=== PATIENT | female | born 1985 | race Caucasian/White ===

== ENCOUNTER 2016-06-10 03:47 | Inpatient (IN) | payer MEDICAID, OTHER ==
[2016-06-10] VITALS (9 sets, daily range): BP systolic 93–120; BP diastolic 54–71; PULSE 103–131; RESP 16–22; TEMP 98.5–99.7; O2SAT 95–97
[~2016-06-10] VITALS: Ht 177.8 cm; Wt 77.0 kg
--- NOTE | 2016-06-10 04:23 | PD ---
HPI Chief Complaint: GI Complaint Time Seen by Provider: 04:08 Travel History International Travel<30 days: No Contact w/Intl Traveler<30days: No Traveled to known affect area: No History of Present Illness HPI 31-year-old female complains of itching rash, productive cough, nausea vomiting and shortness of breath. Patient started having itching rash for the past 2 weeks. Patient states that the rash on the chest, back, abdomen extremity. Patient has been using Benadryl and calamine lotion without much relief of the itching. Patient started having productive cough with nausea vomiting for the past 3 days. Patient complains of frequent reflux symptoms. Patient denies any back pain, patient denies any fever chills. Patient denies abdominal pain. Patient denies any dysuria or frequency. Patient denies any vaginal discharge or bleeding. Patient states that she has history of alcohol abuse. Patient states that she drinks daily. Last drink was today. Patient states that she has a shake if she stops drinking. PFSH Past Medical History Anxiety: Yes Diminished Hearing: No ?: Not LMP: 04/24/16 Social History Alcohol Use: Yes Tobacco Use: No (quit a while ago) Substance Use: No Allergies-Medications (Allergen,Severity, Reaction): Coded Allergies: No Known Allergies (Unverified , 06/10/16) Reported Meds & Prescriptions Reported Meds & Active Scripts Active No Active Prescriptions or Reported Medications Review of Systems General / Constitutional: No: Fever Eyes: No: Visual changes HENT: No: Headaches Cardiovascular: No: Chest Pain or Discomfort Respiratory: Positive: Cough, No: Shortness of Breath Gastrointestinal: Positive: Nausea, Vomiting, No: Abdominal Pain Genitourinary: No: Dysuria Musculoskeletal: No: Pain Skin: Positive Rash (time of the morning for that [id number]), Positive Itching Neurologic: No: Weakness Psychiatric: No: Depression Endocrine: No: Polydipsia Hematologic/Lymphatic: No: Easy Bruising Physical Exam Narrative GENERAL: Well-nourished, well-developed patient. SKIN: Focused skin assessment warm/dry. Patient has fine papular rash on the chest, abdomen, extremity. HEAD: Normocephalic. EYES: No scleral icterus. No injection or drainage. NECK: Supple, trachea midline. No JVD or lymphadenopathy. CARDIOVASCULAR: Regular rate and rhythm without murmurs, gallops, or rubs. RESPIRATORY: Breath sounds equal bilaterally. No accessory muscle use. GASTROINTESTINAL: Abdomen soft, non-tender, nondistended. MUSCULOSKELETAL: No cyanosis, or edema. BACK: Nontender without obvious deformity. No CVA tenderness. Neurologic exam normal. Data Data Last Documented VS Vital Signs Date Time Temp Pulse Resp B/P Pulse Ox O2 Delivery O2 Flow Rate FiO2 06/10/16 04:54 18 97 Room Air 06/10/16 03:54 99.7 131 113/71 Orders Complete Blood Count With Diff (06/10/16 04:13) Comprehensive Metabolic Panel (06/10/16 04:13) Prothrombin Time / Inr (Pt) (06/10/16 04:13) Act Partial Throm Time (Ptt) (06/10/16 04:13) Lipase (06/10/16 04:13) Urinalysis - C+S If Indicated (06/10/16 04:13) Influenzae A/B Antigen (06/10/16 04:13) Chest, Single Ap (06/10/16 04:13) Iv Access Insert/Monitor (06/10/16 04:13) Ecg Monitoring (06/10/16 04:13) Oximetry (06/10/16 04:13) Alcohol (Ethanol) (06/10/16 04:13) Ed Urine Pregnancytest Poc (06/10/16 04:24) Labs Laboratory Tests Test 06/10/16 06/10/16 04:20 04:35 White Blood Count 18.4 TH/MM3 Red Blood Count 3.52 MIL/MM3 Hemoglobin 13.0 GM/DL Hematocrit 36.2 % Mean Corpuscular Volume 102.9 FL Mean Corpuscular Hemoglobin 37.0 PG Mean Corpuscular Hemoglobin 36.0 % Concent Red Cell Distribution Width 15.5 % Platelet Count 279 TH/MM3 Mean Platelet Volume 10.6 FL Neutrophils (%) (Auto) 83.2 % Lymphocytes (%) (Auto) 9.8 % Monocytes (%) (Auto) 5.7 % Eosinophils (%) (Auto) 1.0 % Basophils (%) (Auto) 0.3 % Neutrophils # (Auto) 15.3 TH/MM3 Lymphocytes # (Auto) 1.8 TH/MM3 Monocytes # (Auto) 1.0 TH/MM3 Eosinophils # (Auto) 0.2 TH/MM3 Basophils # (Auto) 0.0 TH/MM3 CBC Comment AUTO DIFF Differential Comment AUTO DIFF CONFIRMED Platelet Estimate NORMAL Platelet Morphology Comment NORMAL Total Bilirubin 7.2 MG/DL Alkaline Phosphatase 344 U/L Total Protein 7.2 GM/DL Prothrombin Time 15.8 SEC Prothromb Time International 1.4 RATIO Ratio Activated Partial 32.7 SEC Thromboplast Time MDM Medical Decision Making Medical Screen Exam Complete: Yes Emergency Medical Condition: Yes Interpretation(s) Last Impressions Chest X-Ray 06/10/16 0413 Signed Impressions: Service Date/Time: Friday, June 10, 2016 04:31 - CONCLUSION: No acute disease. Chapo Egan Jr., MD 5:13 AM. CBC WBC 18.4. Hemoglobin 13.0 hematocrit 36.2. MCV 102.9. 83 neutrophil. INR 1.4. Differential Diagnosis Differential diagnosis including contact dermatitis, scabies, URI, bronchitis, pneumonia, gastroenteritis, dehydration, electrolyte imbalance. Narrative Course 31-year-old female with itching rash, coughing congestion, shortness of breath, nausea vomiting. Scripts No Active Prescriptions or Reported Meds Tiago Guan MD Jun 10, 2016 04:23
[2016-06-10 04:37] LABS: AUTOMATED NEUTROPHIL # 15.3 TH/MM3 (1.8-7.7); BASOPHIL % 0.3 % (0.0-2.0); EOSINOPHIL # 0.2 TH/MM3 (0-0.4); HEMATOCRIT 36.2 % (35.0-46.0); LYMPH % 9.8 % (9.0-44.0); LYMPHOCYTE # 1.8 TH/MM3 (1.0-4.8); MEAN CELL VOLUME 102.9 FL (80.0-100.0); MONO % 5.7 % (0.0-8.0); NEUT % 83.2 % (16.0-70.0); PLATELET COUNT 279 TH/MM3 (150-450); RED BLOOD COUNT 3.52 MIL/MM3 (4.00-5.30); RED CELL DISTRIBUTION WIDTH 15.5 % (11.6-17.2); WHITE BLOOD COUNT 18.4 TH/MM3 (4.0-11.0)
[2016-06-10 04:40] LABS: HEMO FLAGS AUTO DIFF
--- NOTE | 2016-06-10 04:56 | RADRPT ---
EXAM DATE/TIME: 06/10/2016 04:31 [facility] COMPARISON: No previous studies available for comparison. INDICATIONS : Shortness of breath and chest pain. MEDICAL HISTORY : None. SURGICAL HISTORY : None. ENCOUNTER: Initial ACUITY: 1 day PAIN SCORE: 5/10 LOCATION: chest FINDINGS: A single view of the chest demonstrates the lungs to be symmetrically aerated without evidence of mas s, infiltrate or effusion. The cardiomediastinal contours are unremarkable. Osseous structures are intact. CONCLUSION: No acute disease. Chapo Egan Jr., MD on June 10, 2016 at 4:54 Board Certified Radiologist. This report was verified electronically.
[2016-06-10 05:08] LABS: PLATELET ESTIMATE SMEAR NORMAL (NORMAL); PLATELET MORPHOLOGY NORMAL (NORMAL); SCAN/DIFF AUTO DIFF CONFIRMED
[2016-06-10 05:11] LABS: APTT (PATIENT) 32.7 SEC (24.3-30.1); INTERNATIONAL NORMALIZED RATIO 1.4 RATIO; PROTHROMBIN TIME - PATIENT 15.8 SEC (9.8-11.6)
[2016-06-10 05:12] LABS: ALKALINE PHOSPHATASE 344 U/L (45-117); TOTAL BILIRUBIN ADULT 7.2 MG/DL (0.2-1.0)
[2016-06-10 05:58] LABS: BACTERIA, URINE RARE /hpf; BLOOD, URINE TRACE (NEG); COMMENT (UR) CULTURE INDICATED; CULTURE IF INDICATED CULTURE INDICATED; GLUCOSE,URINE NEG (NEG); HYALINE CAST, URINE 2 /lpf (RARE); KETONE, URINE NEG (NEG); MUCUS URINE MANY /lpf (OCC); NITRITE,URINE NEG (NEG); PH, URINE 5.5 (5.0-8.5); SQUAMOUS EPITHELIAL CELL URINE 42 /hpf (0-5); URINE COLOR DARK-BROWN (YELLW/STRAW)
[2016-06-10 05:59] LABS: ALT (GPT) 35 U/L (10-53); ANION GAP 15 MEQ/L (5-15); AST (GOT) 176 U/L (15-37); BICARBONATE 32.5 MEQ/L (21.0-32.0); BLOOD UREA NITROGEN 1 MG/DL (7-18); CHLORIDE 87 MEQ/L (98-107); GLOMERULAR FILTRATION RATE 113 ML/MIN (>89); SODIUM (NA) 134 MEQ/L (136-145)
[2016-06-10 06:20] LABS: POTASSIUM 2.4 MEQ/L (3.5-5.1)
[2016-06-10] MEDS ORDERED: POTASSIUM CHLOR 20 MEQ PREMIX 100 ML IV ONE (06:30)
[2016-06-10] MEDS ORDERED: POTASSIUM CHLORIDE 20 MEQ CONTROLLED RELEASE TAB PO ONE (06:30)
[2016-06-10] MEDS ORDERED: IOHEXOL 350 MG/ML 10 ML VIAL (for RAD DIAG) IV ONE (07:27)
--- NOTE | 2016-06-10 08:18 | RADRPT ---
EXAM DATE/TIME: 06/10/2016 07:22 [facility] COMPARISON: No previous studies available for comparison. INDICATIONS : Abdominal pain along with distention. Vomiting IV CONTRAST: 93 cc Omnipaque 350 (iohexol) IV ORAL CONTRAST: No oral contrast ingested. RADIATION DOSE: 5.27 CTDIvol (mGy) MEDICAL HISTORY : None SURGICAL HISTORY : None. ENCOUNTER: Initial ACUITY: 2 days PAIN SCALE: 5/10 LOCATION: Abdomen TECHNIQUE: Volumetric scanning of the abdomen and pelvis was performed. Using automated exposure control and ad justment of the mA and/or kV according to patient size, radiation dose was kept as low as reasonably achievable to obtain optimal diagnostic quality images. FINDINGS: The liver is enlarged and demonstrates fatty infiltration. No focal hepatic mass is noted. No bilia ry ductal dilatation is noted. There are tiny calcified gallstones within the fundus of the gallbladder. The wall of the gallbladder is not particularly thickened. The spleen is mildly enlarged. The pancreas is normal. The adrenal glands are normal bilaterally. The kidneys enhance briskly and demonstrate no evidence of mass or hydronephrosis. A small to moderate amount of ascites is noted in the upper abdomen and within the p lesvia. The abdominal aorta and inferior vena cava are unremarkable. No paraaortic, retroperitoneal or mesenteri c lymphadenopathy is noted. No bowel obstruction is noted. A small hiatal hernia is noted. There is a small right pleural effusion. The uterus is unremarkable. The urinary bladder is also unremarkable. The append ix is normal. There is no evidence of acute diverticulitis. The bony structures are unremarkable. CONCLUSION: 1. Enlarged fatty liver. 2. Mild splenomegaly. 3. Small to moderate amount of ascites within the abdomen and pelvis. 4. Small right pleural effusion. 5. Small hiatal hernia. 6. Cholelithiasis. Juan Leblanc MD on June 10, 2016 at 7:35 Board Certified Radiologist. This report was verified electronically.
[2016-06-10] MEDS ORDERED: PIPERACIL-TAZO 4.5 GM PREMIX 100 ML IV STA (08:26)
--- NOTE | 2016-06-10 08:49 | PD ---
Physical Exam Narrative GENERAL: Well-nourished, well-developed patient. SKIN: Warm and dry. HEAD: Normocephalic and atraumatic. EYES: No injection or drainage. ENT: No nasal drainage noted. NECK: Supple, trachea midline. CARDIOVASCULAR: Regular rate and rhythm RESPIRATORY: no increased effort. No accessory muscle use. GASTROINTESTINAL: Abdomen soft, ttp in ruq, mild distension NEUROLOGICAL: Awake and alert. moves all extremities. Normal speech. Data Data Last Documented VS Vital Signs Date Time Temp Pulse Resp B/P Pulse Ox O2 Delivery O2 Flow Rate FiO2 06/10/16 07:05 126 16 120/71 96 Room Air 06/10/16 03:54 99.7 Orders Complete Blood Count With Diff (06/10/16 04:13) Comprehensive Metabolic Panel (06/10/16 04:13) Prothrombin Time / Inr (Pt) (06/10/16 04:13) Act Partial Throm Time (Ptt) (06/10/16 04:13) Lipase (06/10/16 04:13) Urinalysis - C+S If Indicated (06/10/16 04:13) Influenzae A/B Antigen (06/10/16 04:13) Chest, Single Ap (06/10/16 04:13) Iv Access Insert/Monitor (06/10/16 04:13) Ecg Monitoring (06/10/16 04:13) Oximetry (06/10/16 04:13) Alcohol (Ethanol) (06/10/16 04:13) Ed Urine Pregnancytest Poc (06/10/16 04:24) Urine Culture (06/10/16 05:30) Ammonia (06/10/16 06:16) Potassium Chloride (Kcl) (06/10/16 06:30) Potassium Chlor 20 Meq Premix (Kcl 20 Me (06/10/16 06:30) Ct Abd/Pel W Iv Contrast(Rout) (06/10/16 06:51) Iohexol 350 Inj (Omnipaque 350 Inj) (06/10/16 07:27) Piperacil-Tazo 4.5 Gm Premix (Zosyn 4.5 (06/10/16 08:26) Lactic Acid Sepsis Protocol (06/10/16 08:26) Blood Culture (06/10/16 08:26) Consult Gastroenterology (06/10/16 ) Sodium Chlor 0.9% 1000 Ml Inj (Ns 1000 M (06/10/16 09:00) Admit Order (Ed Use Only) (06/10/16 09:03) Labs Laboratory Tests Test 06/10/16 06/10/16 06/10/16 06/10/16 04:20 04:35 05:30 06:24 White Blood Count 18.4 TH/MM3 Red Blood Count 3.52 MIL/MM3 Hemoglobin 13.0 GM/DL Hematocrit 36.2 % Mean Corpuscular Volume 102.9 FL Mean Corpuscular Hemoglobin 37.0 PG Mean Corpuscular Hemoglobin 36.0 % Concent Red Cell Distribution Width 15.5 % Platelet Count 279 TH/MM3 Mean Platelet Volume 10.6 FL Neutrophils (%) (Auto) 83.2 % Lymphocytes (%) (Auto) 9.8 % Monocytes (%) (Auto) 5.7 % Eosinophils (%) (Auto) 1.0 % Basophils (%) (Auto) 0.3 % Neutrophils # (Auto) 15.3 TH/MM3 Lymphocytes # (Auto) 1.8 TH/MM3 Monocytes # (Auto) 1.0 TH/MM3 Eosinophils # (Auto) 0.2 TH/MM3 Basophils # (Auto) 0.0 TH/MM3 CBC Comment AUTO DIFF Differential Comment AUTO DIFF CONFIRMED Platelet Estimate NORMAL Platelet Morphology Comment NORMAL Prothrombin Time 15.8 SEC Prothromb Time International 1.4 RATIO Ratio Activated Partial 32.7 SEC Thromboplast Time Sodium Level 134 MEQ/L Potassium Level 2.4 MEQ/L Chloride Level 87 MEQ/L Carbon Dioxide Level 32.5 MEQ/L Anion Gap 15 MEQ/L Blood Urea Nitrogen 1 MG/DL Creatinine 0.61 MG/DL Estimat Glomerular Filtration 113 ML/MIN Rate Random Glucose 93 MG/DL Calcium Level 8.0 MG/DL Total Bilirubin 7.2 MG/DL Aspartate Amino Transf 176 U/L (AST/SGOT) Alanine Aminotransferase 35 U/L (ALT/SGPT) Alkaline Phosphatase 344 U/L Total Protein 7.2 GM/DL Albumin 2.0 GM/DL Lipase 100 U/L Ethyl Alcohol Level 19 MG/DL Urine Color DARK-BROWN Urine Turbidity HAZY Urine pH 5.5 Urine Specific Newman 1.029 Urine Protein 30 mg/dL Urine Glucose (UA) NEG mg/dL Urine Ketones NEG mg/dL Urine Occult Blood TRACE Urine Nitrite NEG Urine Bilirubin LARGE Urine Urobilinogen GREATER THAN 12.0 MG/DL Urine Leukocyte Esterase NEG Urine RBC 1 /hpf Urine WBC 20 /hpf Urine WBC Clumps RARE Urine Squamous Epithelial 42 /hpf Cells Urine Bacteria RARE /hpf Urine Hyaline Casts 2 /lpf Urine Mucus MANY /lpf Microscopic Urinalysis Comment CULTURE INDICATED Ammonia LESS THAN 10 MCMOL/L Test 06/10/16 08:35 Lactic Acid Level 4.6 mmol/L MDM Supervised Visit with JANETH: No Interpretation(s) CBC & BMP Diagram 06/10/16 04:20 06/10/16 04:35 Last 24 hours Impressions Chest X-Ray 06/10/16 0413 Signed Impressions: Service Date/Time: Friday, June 10, 2016 04:31 - CONCLUSION: No acute disease. Chapo Egan Jr., MD CT abdomen pelvis shows fatty liver, splenomegaly, small to moderate ascites, right pleural effusion, hiatal hernia, cholelithiasis lactate 4.6 Narrative Course Signed over to me to follow CT and admit for further care. Given elevated white blood cell count with right upper quadrant pain and cholelithiasis will add on lactate, blood cultures and discuss with GI Patient with persistent tachycardia Will give IV fluid bolus and dose with Zosyn while awaiting testing. Patient updated and agrees to admit given elevated lactic acid, 2 more boluses of ivvf ordered and patient will have second iv site placed, will monitor in icu, tachycardia improving with ivf Critical Care Narrative Aggregate critical care time was 50 minutes. Time to perform other separately billable procedures was not included in the critical care time. My time did not include minutes spent treating any other patients simultaneously or on activities that did not directly contribute to the patient's treatment. The services I provided to this patient were to treat and/or prevent clinically significant deterioration that could result in: hypotension, renal failure I provided critical care services requiring my management, as noted below: Chart data review, documentation time, medication orders and management, vital sign assessments/reviewing monitor data, ordering and reviewing lab tests, ordering and interpreting/reviewing x-rays and diagnostic studies, care of the patient and discussion of the patient with the admitting physicians. Sepsis Criteria SIRS Criteria (2 or more): Heart rate over 90, WBC > 83864, < 4000 or > 10% bands Sepsis Criteria (SIRS+source): Infect source susp/known Severe Sepsis (+one): Lactate >2 Septic Shock Criteria: Lactic acid >=4 Criteria Outcome: Meets septic shock criteria Physician Communication Physician Communication dr gilmore agrees to antibiotics and to proceed with HIDA and MRCP, will follow dr perez given report but then called back and states service gave wrong name dr toure requests discussion with icu team dr hernandez agrees to admit Diagnosis Primary Impression: Sepsis Qualified Code: A41.9 - Sepsis, due to unspecified organism Additional Impressions: Ascites Qualified Code: R18.8 - Other ascites Hyperbilirubinemia Pleural effusion Hypokalemia Vomiting Qualified Code: R11.2 - Non-intractable vomiting with nausea, unspecified vomiting type Admitting Information Admitting Physician Requests: Admit Scripts No Active Prescriptions or Reported Meds Anastasia Benavides MD Jun 10, 2016 08:49
[2016-06-10] MEDS ORDERED: SODIUM CHLOR 0.9% 1000 ML INJ 1,000 ML IV ONE ×3 (09:00→10:00)
[2016-06-10 10:54] LABS: LACTIC ACID GHOST NOT REPORTABLE
[2016-06-10 11:07] LABS: BETA HCG QUANT LESS THAN 1 MIU/ML (0-5)
--- NOTE | 2016-06-10 11:33 | PD.CONS ---
HPI History of Present Illness This is a 31 year old female who presented to the ER for evaluation of a rash, cough, and worsening shortness of breath. About 3 days ago, she had several "flea bites" and then she developed a diffuse pruritic rash. She has tried calamine lotion, alcohol baths, benadryl, tylenol, but nothing has seemed to help. She reports that she has also had a productive cough for several days. She reports that she has been extremely tired and that "everything hurts." She also started having nausea/vomiting about 3 days ago with bilious material, but no hematemesis. She has not been able to eat or drink much and therefore lately , she has been having dry heaving. She does have abdominal pain, but describes this more as a diffuse dull ache without any aggravating or alleviating factors. The pain in her abdomen does radiate to her right side around to her back. No diarrhea/constipation. She denies melena or hematochezia. She typically drinks a pint a day, but states that she has recently cut this back some. She denies any known history of liver disease. She denies new medications. She has taken Milk Thistle in the past, but nothing recently. She grew up in the foster system and does not know her family's history. ( Rosi Christine) [facility] Past Medical History ETOH abuse Denies any other medical problems. Past Surgical History Laparoscopic knee surgery (right) (Rosi Christine) Coded Allergies: No Known Allergies (Unverified , 06/10/16) Medications Allergies Coded Allergies Type Severity Reaction Last Updated Verified No Known Allergies 06/10/16 No Active Scripts Medications Dose Route/Sig Days Date Category No Active Prescriptions or Reported Medications Rx Family History Does not know family history, grew up in foster program Social History Drinks 1 pint of etoh today. No tobacco. No illicit drug use. (Rosi Christine) Review of Systems Constitutional: COMPLAINS OF: Fatigue, Chills, Change in appetite, DENIES: Fever Respiratory: COMPLAINS OF: Cough, Shortness of breath Gastrointestinal: COMPLAINS OF: Abdominal pain, Nausea, Vomiting, Swelling of Abdomen, DENIES: Black stools, Bloody stools, Constipation, Heartburn, Hematemesis Musculoskeletal: COMPLAINS OF: Joint pain, Muscle aches, Back pain Integumentary: COMPLAINS OF: Pruritus, Rash Neurologic: DENIES: Headache Psychiatric: DENIES: Confusion (Rosi Christine) GI Exam Vitals I&O Vital Signs Date Time Temp Pulse Resp B/P Pulse Ox O2 Delivery O2 Flow Rate FiO2 06/10/16 07:05 126 16 120/71 96 Room Air 06/10/16 07:05 96 06/10/16 04:54 18 97 Room Air 06/10/16 03:54 99.7 131 18 113/71 97 Room Air Imaging Last Impressions Chest X-Ray 06/10/16 0413 Signed Impressions: Service Date/Time: Friday, June 10, 2016 04:31 - CONCLUSION: No acute disease. Chapo Egan Jr., MD Laboratory Test 06/10/16 06/10/16 06/10/16 06/10/16 04:20 04:35 05:30 06:24 White Blood Count 18.4 TH/MM3 Red Blood Count 3.52 MIL/MM3 Hemoglobin 13.0 GM/DL Hematocrit 36.2 % Mean Corpuscular Volume 102.9 FL Mean Corpuscular Hemoglobin 37.0 PG Mean Corpuscular Hemoglobin 36.0 % Concent Red Cell Distribution Width 15.5 % Platelet Count 279 TH/MM3 Mean Platelet Volume 10.6 FL Neutrophils (%) (Auto) 83.2 % Lymphocytes (%) (Auto) 9.8 % Monocytes (%) (Auto) 5.7 % Eosinophils (%) (Auto) 1.0 % Basophils (%) (Auto) 0.3 % Neutrophils # (Auto) 15.3 TH/MM3 Lymphocytes # (Auto) 1.8 TH/MM3 Monocytes # (Auto) 1.0 TH/MM3 Eosinophils # (Auto) 0.2 TH/MM3 Basophils # (Auto) 0.0 TH/MM3 CBC Comment AUTO DIFF Differential Comment AUTO DIFF CONFIRMED Platelet Estimate NORMAL Platelet Morphology Comment NORMAL Prothrombin Time 15.8 SEC Prothromb Time International 1.4 RATIO Ratio Activated Partial 32.7 SEC Thromboplast Time Sodium Level 134 MEQ/L Potassium Level 2.4 MEQ/L Chloride Level 87 MEQ/L Carbon Dioxide Level 32.5 MEQ/L Anion Gap 15 MEQ/L Blood Urea Nitrogen 1 MG/DL Creatinine 0.61 MG/DL Estimat Glomerular Filtration 113 ML/MIN Rate Random Glucose 93 MG/DL Calcium Level 8.0 MG/DL Total Bilirubin 7.2 MG/DL Aspartate Amino Transf 176 U/L (AST/SGOT) Alanine Aminotransferase 35 U/L (ALT/SGPT) Alkaline Phosphatase 344 U/L Total Protein 7.2 GM/DL Albumin 2.0 GM/DL Lipase 100 U/L Human Chorionic Gonadotropin, LESS THAN 1 Quant MIU/ML Ethyl Alcohol Level 19 MG/DL Urine Color DARK-BROWN Urine Turbidity HAZY Urine pH 5.5 Urine Specific Sharps 1.029 Urine Protein 30 mg/dL Urine Glucose (UA) NEG mg/dL Urine Ketones NEG mg/dL Urine Occult Blood TRACE Urine Nitrite NEG Urine Bilirubin LARGE Urine Urobilinogen GREATER THAN 12.0 MG/DL Urine Leukocyte Esterase NEG Urine RBC 1 /hpf Urine WBC 20 /hpf Urine WBC Clumps RARE Urine Squamous Epithelial 42 /hpf Cells Urine Bacteria RARE /hpf Urine Hyaline Casts 2 /lpf Urine Mucus MANY /lpf Microscopic Urinalysis Comment CULTURE INDICATED Ammonia LESS THAN 10 MCMOL/L Test 06/10/16 06/10/16 08:35 10:30 Lactic Acid Level 4.6 mmol/L 3.7 mmol/L Date/Time Procedure Status Source Growth 06/10/16 08:40 Aerobic Blood Culture Received Blood Peripheral Pending 06/10/16 08:40 Anaerobic Blood Culture Received Blood Peripheral Pending 06/10/16 05:30 Urine Culture Received Urine Clean Catch Pending 06/10/16 04:45 Influenza Types A,B Antigen (AMADEO) - Final Complete Nasal Washing NEGATIVE FOR FLU A AND B ANTIGEN.... Physical Examination HEENT: Normocephalic; atraumatic; no jaundice. CHEST: CTA CARDIAC: RRR. ABDOMEN: Soft, mildly distended, diffuse tenderness; hepatosplenomegaly; bowel sounds are present in all four quadrants. EXTREMITIES: No clubbing, cyanosis, or edema. SKIN: Fine spotted rash to trunk, extremities CRAYON GRADER: No focal deficits; alert and oriented times three. (Rosi Christine) Assessment and Plan Plan ASSESSMENT: - Alcoholic hepatitis. DF 24.68. Drinks 1 pint ETOH a day x 3-[address] with enlarged fatty liver, mild splenomegaly, small to moderate amount of ascites. T. Bili 7.2, AST 176, ALT 35, ALK phosph 344. Not a candidate for steroids, will add Pentoxifylline - Elevated LFTs, likely related to above, but does have cholelithiasis. CT with cholelithiasis, does not mention CBD dilatation. Likely this is related to alcoholic hepatitis, but will get HIDA/MRCP. Liver workup. - N/V, Abdominal pain. CT Scan abdomen and pelvis (06/10/16)--> enlarged fatty liver, mild splenomegaly, small to moderate amount of ascites within the abdomen and pelivs, small right pleural effusion, small hiatal hernia, cholelithiasis. - Cholelithiasis. Will get HIDA scan/MRCP given her sepsis and LFT derangement along with N/V/Pain. - Sepsis Criteria, Leukocytosis, Lactic acidosis. Abn. U/A, Urine Cx pending. Nasal washing (-) for FLU A/B, BCx pending. CXR okay. HIDA pending. If HIDA and Urine cx okay, consider diagnostic paracentesis. - Coagulopathy. PT 15.8, INR 1.4, APTT 32.7, no active bleeding. - Ascites, mild to mod - Hypotension. Per CCM - Skin Rash. States she had bug bites three days ago and then broke out in fine red spotted pruritic rash to trunk and extremities- no relief with calamine lotion, benadryl, at home. - Cough, SOB, small pleural effusion. Chest X-Ray (06/10/16)----> No acute disease. - Multiple electrolyte abnormalities. Per CCM - Abnormal U/A. Cx pending. S/P Zosyn. PLAN: - NPO - HIDA Scan - MRCP Scan - Pentoxifylline 400mg po q8h - Protonix 40mg IV daily - Hepatitis panel - AFP level - PEDRO, ASMA, AMA - Ceruloplasmin, Alpha 1 Antitrypsin - Ferritin, Iron saturation - Monitor CBC, PT/INR, CMP - Supportive care - Further recommendations to follow based on results of above - PT seen and examined by Dr. Ham and myself and this note is written on her behalf (Rosi Christine) Physician Comments seen, examined agree with above (Merlene Ham MD) Rosi Christine Jun 10, 2016 11:33 Merlene Ham MD Jun 10, 2016 17:51
[2016-06-10] MEDS: PANTOPRAZOLE SODIUM 40 MG VIAL IV PUSH SCH (12:03)
[2016-06-10] MEDS ORDERED: POTASSIUM CHLORIDE 25 MEQ EFFERVESCENT TAB PO PRN (12:30)
[2016-06-10] MEDS ORDERED: POTASSIUM PHOSPHATE INJ 30 MMOL in SODIUM CHLOR 0.9% 250 ML INJ 250 ML IV PRN (12:30)
[2016-06-10] MEDS ORDERED: MAGNESIUM SULFATE INJ 4 GM in SODIUM CHLORIDE 0.9% INJ 92 ML IV PRN (12:30)
[2016-06-10] MEDS ORDERED: POTASSIUM PHOSPHATE MONOBASIC 500 MG TAB PO/TUBE PRN (12:30)
[2016-06-10] MEDS ORDERED: POTASSIUM PHOSPHATE MONOBASIC 500 MG TAB PO PRN (12:30)
[2016-06-10] MEDS ORDERED: POTASSIUM CHLOR 20 MEQ PREMIX 100 ML IV PRN (12:30)
[2016-06-10] MEDS ORDERED: CHLORHEXIDINE GLUCONATE 2 % 1 PACK (2 CLOTHS) TOP PRN (12:30)
[2016-06-10] MEDS ORDERED: POTASSIUM CHLOR 40 MEQ PREMIX 100 ML IV PRN ×2 (12:30)
[2016-06-10] MEDS ORDERED: MISCELLANEOUS NURSING INFORMATION XX SCH (12:30)
[2016-06-10] MEDS ORDERED: MAGNESIUM OXIDE 400 MG TAB PO PRN (12:30)
[2016-06-10] MEDS ORDERED: PANTOPRAZOLE SODIUM 40 MG VIAL IV SCH (12:30)
[2016-06-10] MEDS ORDERED: MAGNESIUM SULFATE INJ 2 GM in SODIUM CHLORIDE 0.9% INJ 96 ML IV PRN (12:30)
[2016-06-10] MEDS ORDERED: SODIUM PHOSPHATE INJ 30 MMOL in SODIUM CHLOR 0.9% 250 ML INJ 240 ML IV PRN (12:30)
[2016-06-10] MEDS ORDERED: DEXTROSE 50% IN WATER 50 ML VIAL(D50) IV PUSH PRN (13:00)
[2016-06-10] MEDS ORDERED: GLUCAGON 1 MG/ML VIAL OTHER PRN (13:00)
--- NOTE | 2016-06-10 13:35 | RADRPT ---
EXAM DATE/TIME: 06/10/2016 12:25 [facility] COMPARISON: CT ABDOMEN & PELVIS W CONTRAST, June 10, 2016, 7:22. INDICATIONS : Abdominal pain. MEDICAL HISTORY : None. SURGICAL HISTORY : Right knee. ENCOUNTER: Initial ACUITY: 1 week PAIN SCORE: 5/10 LOCATION: Abdomen TECHNIQUE: Multiplanar, multisequence magnetic resonance imaging of the abdomen was performed. High-resolution 3D dataset was utilized to reconstruct maximum-intensity projection (MIP) images. FINDINGS: The liver is enlarged and diffusely inhomogeneously fatty without a clear mass for technique. Th e spleen is enlarged measuring 14.5 cm in craniocaudal dimension without focal lesions for technique. There are gallstones in the gallbladder with slight pericholecystic fluid. Common bile duct measures almost 2 mm and the intrahepatic ducts are barely visualized. Small bilateral pleural effusions are present with slight ascites. CONCLUSION: 1. Hepatosplenomegaly with significantly and inhomogeneously fatty infiltrated liver. 2. Slight ascites and bilateral pleural effusions. 3. Cholelithiasis and pericholecystic fluid and cholecystitis is not excluded. Mert Laurent MD on June 10, 2016 at 13:25 Board Certified Radiologist. This report was verified electronically.
--- NOTE | 2016-06-10 13:46 | MH ---
cc: AV PEREZ M.D. DATE OF ADMISSION 06/10/2016 DATE OF 1985 HISTORY the patient is a 31-year-old female without significant past medical history who presented to [facility] ED for evaluation of a rash, cough, and worsening shortness of breath. Per records, the patient had several flea biters and then she subsequently developed a diffuse pruritic rash. She tried Calamine lotion, Benadryl and Tylenol without any significant relief. In addition, she reports abdominal pain where she described it as a tightness like in nature, decreased p.o. intake and several episodes of nonbloody emesis. She states that she feels cold all the time and denies having any fever or constitutional symptoms. She denies any melena or hematochezia. The patient is an active drinker where she drinks a pint of vodka on a daily basis. She has been doing this for the past three to four years. She denies any history of liver disease. On arrival to the ER, she had a low grade fever with temperature of 99.7, tachycardiac with heart rate of 120 to 130s. Her laboratory data is significant for lactic acidosis with a lactic acid level 4.6 which trended down to 3.7 with fluid resuscitation. Other significant labs showed elevated AST of 176 with hyperbilirubinemia. Her total bilirubin level measured at 7.2 and alkaline phosphatase of 344. Also, the patient was hypokalemic with a potassium level of 2.4 and had leukocytosis with a WBC of 18.4. Her alcohol level elevated at 19. Due to her abdominal pain, a CT scan of the abdomen and pelvis obtained which showed enlarged fatty liver, mild splenomegaly, small to moderate ascites, cholelithiasis and small hiatal hernia. In the ER, she was given approximately three liters of crystalloids, Zosyn and potassium replacement. The patient was seen by GI service in the ER and scheduled to undergo a HIDA scan and MRCP. She is on room air oxygen. The patient denies any chest pain, shortness of breath or edema of the lower extremities. PAST MEDICAL HISTORY Denies any history of hypertension, diabetes mellitus or hyperlipidemia. PAST SURGICAL HISTORY Previous arthroscopic right knee surgery. ALLERGIES NO KNOWN DRUG ALLERGIES. MEDICATIONS AT HOME None FAMILY HISTORY The patient grew up in the foster program. SOCIAL HISTORY She drinks one pint of vodka on a daily basis for the past three to four years. She denies any tobacco or illicit drug use. REVIEW OF SYSTEMS As per HPI, the rest of the review of systems unremarkable. PHYSICAL EXAMINATION A 31-year-old female lying in bed in no acute distress. VITAL SIGNS: Temperature of 99.7, pulse of 108, respiratory rate of 18 and blood pressure 120/71, saturation 95% on room air. HEENT: Atraumatic, normocephalic. Pupil equal and reactive to light and accommodation. Extraocular muscles intact. Conjunctivae pink. Nonicteric sclerae. Dry mucous membranes. NECK: Supple. No JVD, adenopathy or thyromegaly. Trachea midline. CARDIOVASCULAR: Tachycardiac normal S1-S2. No murmurs, rubs or gallops noted. PULMONARY: Bilateral equal air entry. No rales or wheezing. ABDOMEN: Soft, mild tenderness on palpation, mildly distended, positive bowel sounds. EXTREMITIES: No cyanosis, clubbing or edema. DERMATOLOGY: A fine spotted rash to the trunk and extremities. NEUROLOGIC: No focal sensory deficit. LABORATORY DATA Sodium 134, potassium 2.4, chloride 87, CO2 32, BUN 1, creatinine 0.61, glucose 93, lactic acid 4.6, on repeat 3.7, total bilirubin 7.2, AST 176, ALT of 35, alk phos 344, ammonia level less than 10. WBC 18.4, hemoglobin 13, hematocrit 36, platelet count 279, INR 1.4, PT 15.8, PTT 32.7. Urinalysis large bilirubin 20 WBCs, rare WBC clumps, alcohol level 19. RADIOGRAPHY Chest x-ray showed no acute disease. CT abdomen, pelvis showed a large fatty liver, mild splenomegaly, small to moderate to moderate of ascites, cholelithiasis and small hiatal hernia. IMPRESSION 1. Abdominal pain 2. Alcoholic hepatitis 3. Hyperbilirubinemia with elevated AST 4. Cholelithiasis 5. Electrolyte imbalance which includes hyponatremia and hypokalemia. 6. Leukocytosis 7. UTI 8. ETOH abuse RECOMMENDATIONS 1. Monitor neuro status closely and watch for signs of DTs. We will place on thiamine, multivitamins and folic acid. 2. Oxygen p.r.n. to maintain sats above 92% and bronchodilators on a p.r.n. basis. 3. Monitor heart rate and blood pressure and maintain a MAP greater than 65 mmHg. Serial lactic acid monitoring. Lactic acid level 3.7 from to 4.6. The patient was given 3 liters of crystalloids. We will continue with IV hydration in the form of D5 NS at 100 mL/hour. 4. Monitor renal function I's and O's and place on electrolyte replacement protocol. 5. Monitor LFTs and will place on Protonix 40 mg IV daily. 6. The patient scheduled to undergo hiatus can an MRCP without contrast per GI. 7. Continue with Trental 400 mg p.o. q8h 8. Keep n.p.o. for now. 9. Continue with antibiotics in the form of a Levaquin and Flagyl and monitor for signs infections which include fever and WBC. 10. Follow up on blood and urine cultures. 11. The nasal washing is negative for influenza. 12. Sliding scale insulin Accu-Chek q6 hours if needed for glycemic control. 13. Monitor CBC and coag's 14. GI prophylaxis with Protonix 40 mg daily and DVT prophylaxis with SCD's. Addendum: HIDA scan showed no evidence of cholecystitis patient is doing better hemodynamically Will sign off and transfer care to [facility]. MD JAYANT Wheatley/JEANNE /1:01 PM /1:25 PM [id number]
--- NOTE | 2016-06-10 15:55 | RADRPT ---
EXAM DATE/TIME: 06/10/2016 12:50 [place] COMPARISON: No previous studies available for comparison. INDICATIONS : Abdomen pain with nausea.Alcoholic hepatitis. DOSE: 4.2 mCi Tc99m Mebrofenin IV MEDICAL HISTORY : ETOH use. SURGICAL HISTORY : Total knee replacement, right. ENCOUNTER: Initial ACUITY: 2 days PAIN SCALE: 3/10 LOCATION: Right upper quadrant TECHNIQUE: Following the intravenous administration of radiotracer, dynamic sequential images were performed wit h continuous acquisition. FINDINGS: HEPATIC KINETICS: There is some persistent background activity on the initial images suggesting some hepatocellular dys function. No focal defects are seen. Washout from the parenchyma is also delayed. BILIARY CLEARANCE: Due to limited excretion, the extrahepatic biliary tree is difficult to identify however, bowel is se en at 10 minutes. GALLBLADDER: Activity is first seen in the gallbladder at 35 minutes. Common bile duct kinetics are normal and th ere is no evidence of biliary obstruction. BILIARY ENTRIC REFLUX: None observed. CONCLUSION: 1. Scintigraphic findings suggesting hepatocellular dysfunction with sluggish washout and persistent background activity. 2. Due to limited excretion, it is difficult to identify the extrahepatic biliary tree. However, acti vity is seen in the small bowel by 10 minutes. 3. No scintigraphic findings of acute cholecystitis. Bob Lara MD on June 10, 2016 at 15:36 Board Certified Radiologist. This report was verified electronically.
[2016-06-10] MEDS: LEVOFLOXACIN 500 MG PREMIX INJ 100 ML IV SCH (16:00)
[2016-06-10] MEDS: metroNIDAZOLE 500 MG INJ 100 ML IV SCH ×2 (16:00→21:11)
[2016-06-10] MEDS: DEXT 5%-NACL 0.9% 1000 ML INJ 1,000 ML IV SCH ×2 (16:01→21:11)
[2016-06-10] MEDS: MORPHINE SULFATE 4 MG/ML INJ IV PUSH PRN (16:49)
[2016-06-10] MEDS: PENTOXIFYLLINE 400 MG CONTROLLED RELEASE TAB PO SCH ×2 (16:55→20:43)
[2016-06-10] MEDS: INSULIN NovoLIN REGULAR SUPPLEMENTAL SCALE SQ SCH ×2 (17:27→23:32)
[2016-06-10 17:31] LABS: ANION GAP 7 MEQ/L (5-15); BICARBONATE 30.9 MEQ/L (21.0-32.0); BLOOD UREA NITROGEN 2 MG/DL (7-18); CHLORIDE 100 MEQ/L (98-107); FERRITIN 534 NG/ML (8-252); GLOMERULAR FILTRATION RATE 149 ML/MIN (>89); MAGNESIUM 1.3 MG/DL (1.5-2.5); SODIUM (NA) 138 MEQ/L (136-145); TRANSFERRIN IRON PROFILE 44 MG/DL (200-360)
[2016-06-10 17:57] LABS: CALCIUM-PROTEIN CORRECTED 7.5 MG/DL (8.5-10.1)
[2016-06-10 18:25] LABS: POTASSIUM 2.7 MEQ/L (3.5-5.1)
[2016-06-10] MEDS ORDERED: LORazepam 2 MG/ML VIAL IV PUSH PRN ×2 (18:45)
[2016-06-10] MEDS ORDERED: LORazepam 1 MG TAB PO PRN (18:45)
[2016-06-10] MEDS ORDERED: FLUMAZENIL 0.5 MG/5 ML VIAL IV PUSH PRN (18:45)
[2016-06-10] MEDS ORDERED: LORazepam 2 MG TAB PO PRN (18:45)
[2016-06-10] MEDS: SODIUM CHLORIDE 0.9% FLUSH 10 ML FLUSH IV FLUSH SCH (19:43)
[2016-06-10] MEDS: POTASSIUM CHLORIDE 20 MEQ CONTROLLED RELEASE TAB PO SCH ×3 (19:43→23:32)
[2016-06-10] MEDS: CHLORHEXIDINE GLUCONATE 2 % 1 PACK (2 CLOTHS) TOP SCH (19:57)
[2016-06-10] MEDS: LORazepam 2 MG/ML VIAL IV PUSH PRN ×2 (20:03→23:31)
[2016-06-10] MEDS: POTASSIUM CHLOR 20 MEQ PREMIX 100 ML IV PRN ×2 (20:03→21:11)
[2016-06-11] VITALS (14 sets, daily range): BP systolic 91–117; BP diastolic 52–62; PULSE 103–125; RESP 20–24; TEMP 97.1–98.7; O2SAT 22–99
[2016-06-11] MEDS: PENTOXIFYLLINE 400 MG CONTROLLED RELEASE TAB PO SCH ×3 (04:42→22:00)
[2016-06-11] MEDS: LORazepam 2 MG/ML VIAL IV PUSH PRN ×4 (04:43→20:30)
[2016-06-11] MEDS: INSULIN NovoLIN REGULAR SUPPLEMENTAL SCALE SQ SCH ×3 (04:43→18:00)
[2016-06-11] MEDS: metroNIDAZOLE 500 MG INJ 100 ML IV SCH ×3 (04:43→22:34)
[2016-06-11 07:54] LABS: AUTOMATED NEUTROPHIL # 12.5 TH/MM3 (1.8-7.7); BASOPHIL # 0.2 TH/MM3 (0-0.2); BASOPHIL % 1.1 % (0.0-2.0); EOSINOPHIL # 0.2 TH/MM3 (0-0.4); HEMATOCRIT 28.5 % (35.0-46.0); HEMO FLAGS DIFF FINAL; LYMPH % 10.2 % (9.0-44.0); LYMPHOCYTE # 1.6 TH/MM3 (1.0-4.8); MEAN CELL VOLUME 104.6 FL (80.0-100.0); MEAN CORPUSCULAR HEMOGLOBIN 35.4 PG (27.0-34.0); MEAN CORPUSCULAR HGB CONC 33.8 % (32.0-36.0); MONO % 7.9 % (0.0-8.0); NEUT % 79.8 % (16.0-70.0); PLATELET COUNT 186 TH/MM3 (150-450); RED BLOOD COUNT 2.73 MIL/MM3 (4.00-5.30); RED CELL DISTRIBUTION WIDTH 15.6 % (11.6-17.2); WHITE BLOOD COUNT 15.7 TH/MM3 (4.0-11.0)
[2016-06-11 08:05] LABS: INTERNATIONAL NORMALIZED RATIO 1.5 RATIO; PROTHROMBIN TIME - PATIENT 17.1 SEC (9.8-11.6)
[2016-06-11 08:41] LABS: ALKALINE PHOSPHATASE 230 U/L (45-117); ALT (GPT) 25 U/L (10-53); ANION GAP 9 MEQ/L (5-15); AST (GOT) 140 U/L (15-37); BICARBONATE 26.5 MEQ/L (21.0-32.0); BLOOD UREA NITROGEN LESS THAN 1 MG/DL (7-18); CALCIUM-PROTEIN CORRECTED 7.5 MG/DL (8.5-10.1); CHLORIDE 105 MEQ/L (98-107); GLOMERULAR FILTRATION RATE 184 ML/MIN (>89); MAGNESIUM 1.5 MG/DL (1.5-2.5); POTASSIUM 3.5 MEQ/L (3.5-5.1); SODIUM (NA) 140 MEQ/L (136-145); TOTAL BILIRUBIN ADULT 4.7 MG/DL (0.2-1.0)
[2016-06-11] MEDS: MULTIVITAMIN TAB PO SCH ×2 (08:42→09:00)
[2016-06-11] MEDS: PANTOPRAZOLE SODIUM 40 MG VIAL IV PUSH SCH (08:42)
[2016-06-11] MEDS: FOLIC ACID 1 MG TAB PO SCH ×2 (08:43→09:00)
[2016-06-11] MEDS: THIAMINE HCL 100 MG TAB PO SCH ×2 (08:43→09:00)
[2016-06-11] MEDS: DEXT 5%-NACL 0.9% 1000 ML INJ 1,000 ML IV SCH (09:00)
[2016-06-11] MEDS: SODIUM CHLORIDE 0.9% FLUSH 10 ML FLUSH IV FLUSH SCH ×2 (09:00→20:33)
[2016-06-11] MEDS ORDERED: INFLUENZA VIRUS VACCINE (QUADRIVALENT) 0.5 ML SYR IM ONE (10:00)
[2016-06-11] MEDS ORDERED: PNEUMOCOCCAL POLYVALENT INJ 25 MCG/0.5 ML SYR IM ONE (10:00)
[2016-06-11] MEDS: LEVOFLOXACIN 500 MG PREMIX INJ 100 ML IV SCH (12:16)
--- NOTE | 2016-06-11 12:28 | HHI.PR ---
Subjective Remarks Improved today. Vomiting has stopped. She has started having DTs last night. Lab values are improving. Potassium has normalized. Objective Vital Signs Date Time Temp Pulse Resp B/P Pulse Ox O2 Delivery O2 Flow Rate FiO2 06/11/16 08:00 97.6 113 24 102/60 94 06/11/16 08:00 113 06/11/16 06:00 107 06/11/16 04:00 109 06/11/16 04:00 98.5 107 22 102/61 97 06/11/16 02:00 107 06/11/16 00:00 109 06/11/16 00:00 98.7 103 22 96/56 97 06/10/16 22:00 103 06/10/16 20:00 98.5 107 22 107/68 97 06/10/16 20:00 114 06/10/16 18:00 114 06/10/16 16:54 18 06/10/16 16:00 113 06/10/16 15:00 113 I/O 06/10/16 06/10/16 06/10/16 06/11/16 06/11/16 06/11/16 07:00 15:00 23:00 07:00 15:00 23:00 Intake Total 975 ml 850 ml Balance 975 ml 850 ml Intake IV Total 975 ml 850 ml # Voids 2 1 # Bowel Movements 1 1 Result Diagram: 06/11/16 0725 06/11/16 0725 Imaging Last Impressions Chest X-Ray 06/10/16 0413 Signed Impressions: Service Date/Time: Friday, June 10, 2016 04:31 - CONCLUSION: No acute disease. Chapo Egan Jr., MD Hepatobiliary Scan Nuclear Medicine 06/10/16 0000 Signed Impressions: Service Date/Time: Friday, June 10, 2016 12:50 - CONCLUSION: 1. Scintigraphic findings suggesting hepatocellular dysfunction with sluggish washout and persistent background activity. 2. Due to limited excretion, it is difficult to identify the extrahepatic biliary tree. However, activity is seen in the small bowel by 10 minutes. 3. No scintigraphic findings of acute cholecystitis. Bob Lara MD Cholangiopancreatography MRI 06/10/16 0000 Signed Impressions: Service Date/Time: Friday, June 10, 2016 12:25 - CONCLUSION: 1. Hepatosplenomegaly with significantly and inhomogeneously fatty infiltrated liver. 2. Slight ascites and bilateral pleural effusions. 3. Cholelithiasis and pericholecystic fluid and cholecystitis is not excluded. Mert Laurent MD Objective Remarks GENERAL: NAD, A&Ox3 SKIN: Warm and dry. HEAD: Normocephalic. EYES: No scleral icterus. No injection or drainage. NECK: Supple, trachea midline. No JVD or lymphadenopathy. CARDIOVASCULAR: Regular rhythm without murmurs, gallops, or rubs. Tachycardia. RESPIRATORY: Breath sounds equal bilaterally. No accessory muscle use. GASTROINTESTINAL: Abdomen soft, non-tender, nondistended. MUSCULOSKELETAL: No cyanosis, or edema. Fine tremor. BACK: Nontender without obvious deformity. No CVA tenderness. Medications and IVs Administered Medications Medications (Trade) Dose Ordered Sig/Deni Route PRN Reason Start Time Stop Time Status Last Admin Dose Admin Metronidazole 100 ml @ 100 mls/hr Q8H IV 06/10/16 14:00 06/11/16 12:16 Levofloxacin/ Dextrose (Levaquin 500 Mg Premix Inj) 100 ml @ 100 mls/hr Q24H IV 06/10/16 13:00 06/11/16 12:16 Pentoxifylline (TRENtal SR) 400 mg Q8HR PO 06/10/16 14:00 06/11/16 12:15 Pantoprazole Sodium (Protonix Inj) 40 mg DAILY IV PUSH 06/10/16 12:00 06/11/16 08:42 Chlorhexidine Gluconate (Chlorhexidine 2% Cloth) 3 pack Taper DAILY@04 TOP 06/11/16 04:00 06/07/17 03:59 06/10/16 19:57 Chlorhexidine Gluconate (Chlorhexidine 2% Cloth) 3 pack UNSCH PRN TOP HYGIENIC CARE 06/10/16 12:30 06/10/16 19:57 Thiamine HCl (Vitamin B1) 100 mg DAILY PO 06/10/16 12:30 06/11/16 09:00 Folic Acid (Folate) 1 mg DAILY PO 06/10/16 12:30 06/11/16 09:00 Multivitamins 1 tab 1 tab DAILY PO 06/10/16 12:30 06/11/16 09:00 Potassium Chloride 100 ml @ 50 mls/hr Q2H PRN IV For Potassium 2.8 - 3.2 mEq/L 06/10/16 12:30 06/10/16 21:11 Dextrose/Sodium Chloride (D5W-NS 1000 ml Inj) 1,000 ml @ 100 mls/hr Q10H IV 06/10/16 13:00 06/11/16 09:00 Morphine Sulfate (Morphine Inj) 1 mg Q4H PRN IV PUSH pain 06/10/16 16:45 06/10/16 16:49 Sodium Chloride (NS Flush) 2 ml BID IV FLUSH 06/10/16 21:00 06/11/16 09:00 Lorazepam (Ativan Inj) 1 mg Q4H PRN IV PUSH CIWA 8 - 10 06/10/16 18:45 06/11/16 04:43 Lorazepam (Ativan Inj) 2 mg Q2H PRN IV PUSH CIWA 11-14 06/10/16 18:45 06/11/16 12:15 A/P Problem List: (1) Hypokalemia ICD Code: E87.6 Assessment & Plan: Resolved Follow potassium level and replace as needed PO food intake resumed (2) Hyperbilirubinemia ICD Code: E80.6 Assessment & Plan: Follow bilirubin level No acute abdominal pain (3) Vomiting ICD Code: R11.10 Assessment & Plan: Resolved Follow clinically PRN zofran (4) DTs (delirium tremens) ICD Code: F10.231 Assessment & Plan: 10mg Librium QID PRN Lorazepam Follow for stabilization then wean as tolerated Thiamine Folic Acid Problem Qualifiers (1) Vomiting: Qualified Code: R11.2 - Non-intractable vomiting with nausea, unspecified vomiting type Michele Agustin MD Jun 11, 2016 12:27
[2016-06-11] MEDS ORDERED: CALCIUM CARBONATE 1.25 GM (CA 500 MG) TAB PO ONE (16:00)
[2016-06-11] MEDS ORDERED: POTASSIUM PHOSPHATE MONOBASIC 500 MG TAB PO ONE (16:00)
[2016-06-11] MEDS ORDERED: MAGNESIUM OXIDE 400 MG TAB PO ONE (16:00)
[2016-06-12] VITALS (7 sets, daily range): BP systolic 79–101; BP diastolic 46–63; PULSE 86–128; RESP 18–24; TEMP 97.1–98.8; O2SAT 91–96
[2016-06-12] MEDS: LORazepam 2 MG/ML VIAL IV PUSH PRN ×2 (01:57→06:56)
[2016-06-12] MEDS: INSULIN NovoLIN REGULAR SUPPLEMENTAL SCALE SQ SCH ×4 (01:57→17:01)
[2016-06-12] MEDS: CHLORHEXIDINE GLUCONATE 2 % 1 PACK (2 CLOTHS) TOP SCH (03:38)
[2016-06-12] MEDS: metroNIDAZOLE 500 MG INJ 100 ML IV SCH ×3 (05:14→21:54)
[2016-06-12] MEDS: PENTOXIFYLLINE 400 MG CONTROLLED RELEASE TAB PO SCH ×3 (05:14→21:53)
[2016-06-12 05:56] LABS: HEMATOCRIT 26.2 % (35.0-46.0); MEAN CELL VOLUME 105.4 FL (80.0-100.0); MEAN CORPUSCULAR HEMOGLOBIN 35.5 PG (27.0-34.0); MEAN CORPUSCULAR HGB CONC 33.7 % (32.0-36.0); PLATELET COUNT 161 TH/MM3 (150-450); RED BLOOD COUNT 2.48 MIL/MM3 (4.00-5.30); REVIEW FLAG FINAL; WHITE BLOOD COUNT 12.3 TH/MM3 (4.0-11.0)
[2016-06-12 05:59] LABS: BICARBONATE 24.8 MEQ/L (21.0-32.0); CALCIUM-PROTEIN CORRECTED 7.5 MG/DL (8.5-10.1); MAGNESIUM 1.4 MG/DL (1.5-2.5); TOTAL BILIRUBIN ADULT 3.6 MG/DL (0.2-1.0)
[2016-06-12 06:04] LABS: POTASSIUM 2.9 MEQ/L (3.5-5.1)
[2016-06-12] MEDS ORDERED: MAGNESIUM SULFATE 1 GM PREMIX 100 ML IV ONE (06:15)
[2016-06-12] MEDS ORDERED: POTASSIUM BICARBONATE 25 MEQ EFFERVESCENT TAB PO ONE (06:15)
[2016-06-12] MEDS ORDERED: POTASSIUM PHOSPHATE INJ 30 MMOL in SODIUM CHLOR 0.9% 250 ML INJ 250 ML IV ONE (06:30)
[2016-06-12] MEDS ORDERED: SODIUM PHOSPHATE INJ 30 MMOL in SODIUM CHLOR 0.9% 250 ML INJ 250 ML IV ONE (07:00)
[2016-06-12] MEDS: THIAMINE HCL 100 MG TAB PO SCH (07:54)
[2016-06-12] MEDS: CALCIUM CARBONATE 1.25 GM (CA 500 MG) TAB PO SCH ×2 (07:54→21:53)
[2016-06-12] MEDS: SODIUM CHLORIDE 0.9% FLUSH 10 ML FLUSH IV FLUSH SCH ×2 (07:55→21:00)
[2016-06-12] MEDS: MAGNESIUM OXIDE 400 MG TAB PO SCH ×2 (07:55→21:55)
[2016-06-12] MEDS: PANTOPRAZOLE SODIUM 40 MG VIAL IV PUSH SCH (07:55)
[2016-06-12] MEDS: FOLIC ACID 1 MG TAB PO SCH (07:55)
[2016-06-12] MEDS: MULTIVITAMIN TAB PO SCH (07:56)
[2016-06-12] MEDS: POTASSIUM PHOSPHATE MONOBASIC 500 MG TAB PO SCH (07:56)
--- NOTE | 2016-06-12 08:08 | HHI.PR ---
Subjective Remarks DTs stabilized. She had another drop in her phosphorus, magnesium, and potassium and calcium remains low. Systemic electrolyte deficit including a cellular level deficit remains present and ongoing replacement needed. No new complaints. Resting comfortably. Objective Vital Signs Date Time Temp Pulse Resp B/P Pulse Ox O2 Delivery O2 Flow Rate FiO2 06/12/16 00:00 97.8 116 22 101/63 92 06/11/16 20:00 97.6 112 20 97/60 91 06/11/16 18:12 97.1 110 22 96/59 91 06/11/16 16:00 98.6 115 20 91/52 93 06/11/16 16:00 118 06/11/16 14:00 115 06/11/16 12:00 98.0 115 22 117/60 95 06/11/16 12:00 125 06/11/16 10:00 116 I/O 06/11/16 06/11/16 06/11/16 06/12/16 06/12/16 06/12/16 07:00 15:00 23:00 07:00 15:00 23:00 Intake Total 850 ml 686 ml 120 ml 0 ml Output Total 0 ml 0 ml Balance 850 ml 686 ml 120 ml 0 ml Intake Oral 120 ml 0 ml IV Total 850 ml 686 ml Output Urine Total 0 ml 0 ml # Voids 1 3 # Bowel Movements 1 3 1 Result Diagram: 06/12/16 0359 06/12/16 0359 Objective Remarks GENERAL: NAD, A&Ox3 SKIN: Warm and dry. HEAD: Normocephalic. EYES: No scleral icterus. No injection or drainage. NECK: Supple, trachea midline. No JVD or lymphadenopathy. CARDIOVASCULAR: Regular rhythm without murmurs, gallops, or rubs. Tachycardia. RESPIRATORY: Breath sounds equal bilaterally. No accessory muscle use. GASTROINTESTINAL: Abdomen soft, non-tender, nondistended. MUSCULOSKELETAL: No cyanosis, or edema. Fine tremor. BACK: Nontender without obvious deformity. No CVA tenderness. Medications and IVs Administered Medications Medications (Trade) Dose Ordered Sig/Deni Route PRN Reason Start Time Stop Time Status Last Admin Dose Admin Metronidazole 100 ml @ 100 mls/hr Q8H IV 06/10/16 14:00 06/12/16 05:14 Levofloxacin/ Dextrose (Levaquin 500 Mg Premix Inj) 100 ml @ 100 mls/hr Q24H IV 06/10/16 13:00 06/11/16 12:16 Pentoxifylline (TRENtal SR) 400 mg Q8HR PO 06/10/16 14:00 06/12/16 05:14 Pantoprazole Sodium (Protonix Inj) 40 mg DAILY IV PUSH 06/10/16 12:00 06/12/16 07:55 Chlorhexidine Gluconate (Chlorhexidine 2% Cloth) 3 pack Taper DAILY@04 TOP 06/11/16 04:00 06/07/17 03:59 06/10/16 19:57 Chlorhexidine Gluconate (Chlorhexidine 2% Cloth) 3 pack UNSCH PRN TOP HYGIENIC CARE 06/10/16 12:30 06/10/16 19:57 Thiamine HCl (Vitamin B1) 100 mg DAILY PO 06/10/16 12:30 06/12/16 07:54 Folic Acid (Folate) 1 mg DAILY PO 06/10/16 12:30 06/12/16 07:55 Multivitamins 1 tab 1 tab DAILY PO 06/10/16 12:30 06/12/16 07:56 Potassium Chloride 100 ml @ 50 mls/hr Q2H PRN IV For Potassium 2.8 - 3.2 mEq/L 06/10/16 12:30 06/10/16 21:11 Dextrose/Sodium Chloride (D5W-NS 1000 ml Inj) 1,000 ml @ 100 mls/hr Q10H IV 06/10/16 13:00 06/11/16 09:00 Insulin Human Regular (NovoLIN R SUPPLEMENTAL SCALE) 1 Q6HR SQ 06/10/16 13:00 06/12/16 01:57 Morphine Sulfate (Morphine Inj) 1 mg Q4H PRN IV PUSH pain 06/10/16 16:45 06/10/16 16:49 Sodium Chloride (NS Flush) 2 ml BID IV FLUSH 06/10/16 21:00 06/11/16 09:00 Lorazepam (Ativan Inj) 1 mg Q4H PRN IV PUSH CIWA 8 - 10 06/10/16 18:45 06/11/16 04:43 Lorazepam (Ativan Inj) 2 mg Q2H PRN IV PUSH CIWA 11-14 06/10/16 18:45 06/12/16 06:56 Chlordiazepoxide (Librium) 10 mg QID PRN PO DTs 06/11/16 12:30 06/12/16 07:55 Potassium Phosphate (K-Phos) 500 mg DAILY PO 06/12/16 09:00 06/12/16 07:56 Calcium Carbonate (Oscal) 500 mg BID PO 06/12/16 09:00 06/12/16 07:54 Magnesium Oxide (Mag-Ox) 400 mg BID PO 06/12/16 09:00 06/12/16 07:55 A/P Problem List: (1) Hypokalemia ICD Code: E87.6 Assessment & Plan: Returned Replaced Monitor Follow potassium level and replace as needed PO food intake resumed (2) Hyperbilirubinemia ICD Code: E80.6 Assessment & Plan: Not yet normalized, but improving Follow bilirubin level No acute abdominal pain (3) Vomiting ICD Code: R11.10 Assessment & Plan: Resolved Follow clinically PRN zofran (4) DTs (delirium tremens) ICD Code: F10.231 Assessment & Plan: DTs stabalized 10mg Librium QID PRN Lorazepam Follow for stabilization then wean as tolerated Thiamine Folic Acid Problem Qualifiers (1) Vomiting: Qualified Code: R11.2 - Non-intractable vomiting with nausea, unspecified vomiting type Michele Agustin MD Jun 12, 2016 08:08
[2016-06-12] MEDS ORDERED: SODIUM CHLOR 0.9% 1000 ML INJ 1,000 ML IV ONE (08:30)
[2016-06-12] MEDS: POTASSIUM CHLOR 20 MEQ PREMIX 100 ML IV SCH ×2 (08:48→16:41)
[2016-06-12] MEDS ORDERED: CALCIUM CARBONATE 1.25 GM (CA 500 MG) TAB PO SCH (09:00)
[2016-06-12] MEDS ORDERED: MAGNESIUM OXIDE 400 MG TAB PO SCH (09:00)
--- NOTE | 2016-06-12 12:31 | HHI.GIFU ---
GI Follow-up Note Consult Follow-up Subjective: Patient laying in bed , sleepy, arousable, wants to sleep.No nausea , vomiting, has loose stools . Objective: PHYSICAL EXAMINATION: Vitals signs stable No fever Vital Signs Date Time Temp Pulse Resp B/P Pulse Ox O2 Delivery O2 Flow Rate FiO2 06/12/16 08:00 97.4 128 24 83/53 96 79/46 06/12/16 05:20 98.0 118 18 100/60 94 HEENT: Pupils round and reactive to light; normocephalic; atraumatic; jaundice. Throat is clear. NECK: Neck is supple, no JVD, no lymphadenopathy. CHEST: Chest is clear to auscultation and percussion. CARDIAC: Regular rate and rhythm with no murmur gallop or rubs. ABDOMEN: Soft, nondistended, nontender; no hepatosplenomegaly; bowel sounds are present in all four quadrants. EXTREMITIES: No clubbing, cyanosis, or edema. SKIN: Normal; ; jaundice; multiple bruises on arma , spider veins on chest STITCH MARKER: No focal deficits; alert and oriented times three. Available Data (labs, X- Rays, Procedues) : Laboratory Tests Test 06/10/16 06/10/16 06/11/16 06/11/16 16:35 18:20 07:25 07:40 Sodium Level 138 MEQ/L 140 MEQ/L Potassium Level 2.7 MEQ/L 3.5 MEQ/L Chloride Level 100 MEQ/L 105 MEQ/L Carbon Dioxide Level 30.9 MEQ/L 26.5 MEQ/L Anion Gap 7 MEQ/L 9 MEQ/L Blood Urea Nitrogen 2 MG/DL LESS THAN 1 MG/DL Creatinine 0.48 MG/DL 0.40 MG/DL Estimat Glomerular Filtration 149 ML/MIN 184 ML/MIN Rate Random Glucose 92 MG/DL 93 MG/DL Calcium Level 6.4 MG/DL 6.5 MG/DL Protein Corrected Calcium 7.5 MG/DL 7.5 MG/DL Phosphorus Level 1.0 MG/DL 0.8 MG/DL Magnesium Level 1.3 MG/DL 1.5 MG/DL Iron Level 48 MCG/DL Total Iron Binding Capacity 62 MCG/DL Percent Iron Saturation 77.9 % Ferritin 534 NG/ML Total Protein 4.9 GM/DL 5.0 GM/DL Tumor Marker Alpha Fetoprotein 3.4 NG/ML Lactic Acid Level 2.0 mmol/L 1.6 mmol/L White Blood Count 15.7 TH/MM3 Red Blood Count 2.73 MIL/MM3 Hemoglobin 9.6 GM/DL Hematocrit 28.5 % Mean Corpuscular Volume 104.6 FL Mean Corpuscular Hemoglobin 35.4 PG Mean Corpuscular Hemoglobin 33.8 % Concent Red Cell Distribution Width 15.6 % Platelet Count 186 TH/MM3 Mean Platelet Volume 9.7 FL Neutrophils (%) (Auto) 79.8 % Lymphocytes (%) (Auto) 10.2 % Monocytes (%) (Auto) 7.9 % Eosinophils (%) (Auto) 1.0 % Basophils (%) (Auto) 1.1 % Neutrophils # (Auto) 12.5 TH/MM3 Lymphocytes # (Auto) 1.6 TH/MM3 Monocytes # (Auto) 1.2 TH/MM3 Eosinophils # (Auto) 0.2 TH/MM3 Basophils # (Auto) 0.2 TH/MM3 CBC Comment DIFF FINAL Differential Comment Prothrombin Time 17.1 SEC Prothromb Time International 1.5 RATIO Ratio Total Bilirubin 4.7 MG/DL Direct Bilirubin 3.4 MG/DL Aspartate Amino Transf 140 U/L (AST/SGOT) Alanine Aminotransferase 25 U/L (ALT/SGPT) Alkaline Phosphatase 230 U/L Albumin 1.5 GM/DL Test 06/12/16 03:59 White Blood Count 12.3 TH/MM3 Red Blood Count 2.48 MIL/MM3 Hemoglobin 8.8 GM/DL Hematocrit 26.2 % Mean Corpuscular Volume 105.4 FL Mean Corpuscular Hemoglobin 35.5 PG Mean Corpuscular Hemoglobin 33.7 % Concent Red Cell Distribution Width 16.0 % Platelet Count 161 TH/MM3 Mean Platelet Volume 10.2 FL Sodium Level 140 MEQ/L Potassium Level 2.9 MEQ/L Chloride Level 104 MEQ/L Carbon Dioxide Level 24.8 MEQ/L Anion Gap 11 MEQ/L Blood Urea Nitrogen 1 MG/DL Creatinine 0.53 MG/DL Estimat Glomerular Filtration 133 ML/MIN Rate Random Glucose 99 MG/DL Calcium Level 6.3 MG/DL Protein Corrected Calcium 7.5 MG/DL Phosphorus Level 0.4 MG/DL Magnesium Level 1.4 MG/DL Total Bilirubin 3.6 MG/DL Aspartate Amino Transf 137 U/L (AST/SGOT) Alanine Aminotransferase 23 U/L (ALT/SGPT) Alkaline Phosphatase 208 U/L Total Protein 4.6 GM/DL Albumin 1.3 GM/DL ASSESSMENT/PLAN: elevated lfts most likely etoh hepatitis etoh abuse abnormal hida scan most likely hepatocellular dysfunction gallstones Recommendations supportive care continue current management stool studies, including c diff start Rifaximin 550 mg po bid advance diet will need to stop etoh use upon discharge, possible consider rehab It was a pleasure seeing Jeannie Woo. Thank you for this consult. Entered by: Merlene Castillo MD Jun 12, 2016 12:31
[2016-06-12] MEDS: LEVOFLOXACIN 500 MG PREMIX INJ 100 ML IV SCH (14:04)
[2016-06-12] MEDS: DEXT 5%-NACL 0.9% 1000 ML INJ 1,000 ML IV SCH (16:39)
[2016-06-12] MEDS: RIFAXIMIN 550 MG TAB PO SCH (21:53)
[2016-06-13] MEDS: DEXT 5%-NACL 0.9% 1000 ML INJ 1,000 ML IV SCH ×3 (00:51→21:00)
[2016-06-13 03:46] VITALS: BP 101/60; PULSE 113; RESP 19; TEMP 97.8; O2SAT 96
[2016-06-13] MEDS: CHLORHEXIDINE GLUCONATE 2 % 1 PACK (2 CLOTHS) TOP SCH (04:00)
[2016-06-13 04:04] LABS: C. DIFF EPI 027 PRESUMPTIVE NEGATIVE (NEGATIVE); C. DIFF TOXIN PCR NEGATIVE (NEGATIVE)
[2016-06-13] MEDS: INSULIN NovoLIN REGULAR SUPPLEMENTAL SCALE SQ SCH ×4 (05:34→18:30)
[2016-06-13] MEDS: metroNIDAZOLE 500 MG INJ 100 ML IV SCH ×3 (05:56→23:21)
[2016-06-13] MEDS: PENTOXIFYLLINE 400 MG CONTROLLED RELEASE TAB PO SCH ×3 (05:56→23:21)
[2016-06-13 06:25] LABS: HEMATOCRIT 27.2 % (35.0-46.0); MEAN CELL VOLUME 107.1 FL (80.0-100.0); MEAN CORPUSCULAR HGB CONC 32.7 % (32.0-36.0); PLATELET COUNT 145 TH/MM3 (150-450); RED BLOOD COUNT 2.54 MIL/MM3 (4.00-5.30); RED CELL DISTRIBUTION WIDTH 15.7 % (11.6-17.2); REVIEW FLAG FINAL; WHITE BLOOD COUNT 11.1 TH/MM3 (4.0-11.0)
[2016-06-13 06:59] LABS: ALKALINE PHOSPHATASE 204 U/L (45-117); ALT (GPT) 22 U/L (10-53); ANION GAP 10 MEQ/L (5-15); AST (GOT) 127 U/L (15-37); BICARBONATE 22.5 MEQ/L (21.0-32.0); BLOOD UREA NITROGEN LESS THAN 1 MG/DL (7-18); CHLORIDE 109 MEQ/L (98-107); GLOMERULAR FILTRATION RATE 142 ML/MIN (>89); MAGNESIUM 1.6 MG/DL (1.5-2.5); SODIUM (NA) 141 MEQ/L (136-145); TOTAL BILIRUBIN ADULT 3.4 MG/DL (0.2-1.0)
[2016-06-13 07:10] LABS: CALCIUM-PROTEIN CORRECTED 7.2 MG/DL (8.5-10.1); POTASSIUM 2.8 MEQ/L (3.5-5.1)
[2016-06-13 08:00] VITALS: BP 94/58; PULSE 125; RESP 16; TEMP 98.1; O2SAT 93
[2016-06-13] MEDS: MAGNESIUM OXIDE 400 MG TAB PO SCH ×2 (08:49→23:21)
[2016-06-13] MEDS: CALCIUM CARBONATE 1.25 GM (CA 500 MG) TAB PO SCH ×2 (08:49→23:21)
[2016-06-13] MEDS: THIAMINE HCL 100 MG TAB PO SCH (08:49)
[2016-06-13] MEDS: MULTIVITAMIN TAB PO SCH (08:49)
[2016-06-13] MEDS: RIFAXIMIN 550 MG TAB PO SCH ×2 (08:49→23:21)
[2016-06-13] MEDS: FOLIC ACID 1 MG TAB PO SCH (08:49)
[2016-06-13] MEDS: POTASSIUM CHLORIDE 10 MEQ CONTROLLED RELEASE TAB PO SCH ×2 (08:49→23:20)
[2016-06-13] MEDS: POTASSIUM PHOSPHATE MONOBASIC 500 MG TAB PO SCH (08:49)
[2016-06-13] MEDS: PANTOPRAZOLE SODIUM 40 MG VIAL IV PUSH SCH (08:50)
[2016-06-13] MEDS: SODIUM CHLORIDE 0.9% FLUSH 10 ML FLUSH IV FLUSH SCH ×2 (08:50→21:00)
--- NOTE | 2016-06-13 11:42 | HHI.PR ---
Subjective Remarks Mrs. Woo is a 31 year old female admitted with hyperemesis, severe dehydration , electrolyte deficits, and DTs from alcoholism (likely a significant contributor to her other abnormalities). Electrolytes are not yet stable. Once cellular deficit resolves she should show improved stability in her serum values. Continue scheduled replacements with additional PRN replacements based on labs. Her sedation is improved with a decresed in her librium. DTs are controlled. Objective Vital Signs Date Time Temp Pulse Resp B/P Pulse Ox O2 Delivery O2 Flow Rate FiO2 06/13/16 08:00 98.1 125 16 94/58 93 06/13/16 03:46 97.8 113 19 101/60 96 06/12/16 23:52 98.6 86 20 90/55 92 06/12/16 20:00 112 06/12/16 20:00 97.1 116 18 93/53 93 06/12/16 12:00 98.8 126 24 87/54 91 I/O 06/12/16 06/12/16 06/12/16 06/13/16 06/13/16 06/13/16 07:00 15:00 23:00 07:00 15:00 23:00 Intake Total 0 ml 1710 ml 870 ml 911 ml Output Total 0 ml 200 ml 200 ml Balance 0 ml 1510 ml 670 ml 911 ml Intake Oral 0 ml 480 ml 240 ml 240 ml IV Total 1230 ml 630 ml 671 ml Output Urine Total 0 ml 200 ml 200 ml # Voids 2 2 # Bowel Movements 2 1 7 Result Diagram: 06/13/1631 06/13/1631 Objective Remarks GENERAL: NAD, A&Ox3 SKIN: Warm and dry. HEAD: Normocephalic. EYES: No scleral icterus. No injection or drainage. NECK: Supple, trachea midline. No JVD or lymphadenopathy. CARDIOVASCULAR: Regular rhythm without murmurs, gallops, or rubs. Tachycardia. RESPIRATORY: Breath sounds equal bilaterally. No accessory muscle use. GASTROINTESTINAL: Abdomen soft, non-tender, nondistended. MUSCULOSKELETAL: No cyanosis, or edema. Fine tremor. BACK: Nontender without obvious deformity. No CVA tenderness. Medications and IVs Administered Medications Medications (Trade) Dose Ordered Sig/Deni Route PRN Reason Start Time Stop Time Status Last Admin Dose Admin Metronidazole 100 ml @ 100 mls/hr Q8H IV 06/10/16 14:00 06/13/16 05:56 Levofloxacin/ Dextrose (Levaquin 500 Mg Premix Inj) 100 ml @ 100 mls/hr Q24H IV 06/10/16 13:00 06/12/16 14:04 Pentoxifylline (TRENtal SR) 400 mg Q8HR PO 06/10/16 14:00 06/13/16 05:56 Pantoprazole Sodium (Protonix Inj) 40 mg DAILY IV PUSH 06/10/16 12:00 06/13/16 08:50 Chlorhexidine Gluconate (Chlorhexidine 2% Cloth) 3 pack Taper DAILY@04 TOP 06/11/16 04:00 06/07/17 03:59 06/10/16 19:57 Chlorhexidine Gluconate (Chlorhexidine 2% Cloth) 3 pack UNSCH PRN TOP HYGIENIC CARE 06/10/16 12:30 06/10/16 19:57 Thiamine HCl (Vitamin B1) 100 mg DAILY PO 06/10/16 12:30 06/13/16 08:49 Folic Acid (Folate) 1 mg DAILY PO 06/10/16 12:30 06/13/16 08:49 Multivitamins 1 tab 1 tab DAILY PO 06/10/16 12:30 06/13/16 08:49 Dextrose/Sodium Chloride (D5W-NS 1000 ml Inj) 1,000 ml @ 100 mls/hr Q10H IV 06/10/16 13:00 06/13/16 00:51 Insulin Human Regular (NovoLIN R SUPPLEMENTAL SCALE) 1 Q6HR SQ 06/10/16 13:00 06/12/16 01:57 Morphine Sulfate (Morphine Inj) 1 mg Q4H PRN IV PUSH pain 06/10/16 16:45 06/10/16 16:49 Sodium Chloride (NS Flush) 2 ml BID IV FLUSH 06/10/16 21:00 06/11/16 09:00 Lorazepam (Ativan Inj) 1 mg Q4H PRN IV PUSH CIWA 8 - 10 06/10/16 18:45 06/11/16 04:43 Lorazepam (Ativan Inj) 2 mg Q2H PRN IV PUSH CIWA 11-14 06/10/16 18:45 06/12/16 06:56 Potassium Phosphate (K-Phos) 500 mg DAILY PO 06/12/16 09:00 06/13/16 08:49 Calcium Carbonate (Oscal) 500 mg BID PO 06/12/16 09:00 06/13/16 08:49 Magnesium Oxide (Mag-Ox) 400 mg BID PO 06/12/16 09:00 06/13/16 08:49 Chlordiazepoxide (Librium) 5 mg QID PO 06/12/16 13:00 06/13/16 08:49 Rifaximin (Xifaxan) 550 mg BID PO 06/12/16 21:00 06/13/16 08:49 Potassium Chloride (KCl) 30 meq Q12HR PO 06/13/16 09:00 06/13/16 08:49 A/P Problem List: (1) Hypokalemia ICD Code: E87.6 Assessment & Plan: Not yet stable Replaced Monitor Follow potassium level and replace as needed PO food intake resumed (2) Hyperbilirubinemia ICD Code: E80.6 Assessment & Plan: Not yet normalized, but improving Follow bilirubin level No acute abdominal pain (3) Vomiting ICD Code: R11.10 Assessment & Plan: Resolved Follow clinically PRN zofran (4) DTs (delirium tremens) ICD Code: F10.231 Assessment & Plan: DTs stabalized 5mg Librium QID PRN Lorazepam Follow for stabilization then wean as tolerated Thiamine Folic Acid Assessment and Plan Hypomagnesia Hypophosphatemia Not yet stable Replace as needed and monitor Problem Qualifiers (1) Vomiting: Qualified Code: R11.2 - Non-intractable vomiting with nausea, unspecified vomiting type Michele Agustin MD Jun 13, 2016 11:42
[2016-06-13 12:00] VITALS: BP 90/50; PULSE 117; RESP 20; TEMP 96.6; O2SAT 90
--- NOTE | 2016-06-13 12:16 | HHI.GIFU ---
Subjective Remarks Resting in bed- lethargic. Nurse reports that she does not always take her medications and says she just wants to sleep. States she is having frequent diarrhea- 4-5 episodes per day. (Rosi Christine) Objective Vitals I&O Vital Signs Date Time Temp Pulse Resp B/P Pulse Ox O2 Delivery O2 Flow Rate FiO2 06/13/16 08:00 98.1 125 16 94/58 93 06/13/16 03:46 97.8 113 19 101/60 96 06/12/16 23:52 98.6 86 20 90/55 92 06/12/16 20:00 112 06/12/16 20:00 97.1 116 18 93/53 93 I/O 06/12/16 06/12/16 06/12/16 06/13/16 06/13/16 06/13/16 07:00 15:00 23:00 07:00 15:00 23:00 Intake Total 0 ml 1710 ml 870 ml 911 ml Output Total 0 ml 200 ml 200 ml Balance 0 ml 1510 ml 670 ml 911 ml Intake Oral 0 ml 480 ml 240 ml 240 ml IV Total 1230 ml 630 ml 671 ml Output Urine Total 0 ml 200 ml 200 ml # Voids 2 2 # Bowel Movements 2 1 7 Laboratory Laboratory Tests Test 06/12/16 06/13/16 23:30 05:31 Stool C. difficile Toxin (PCR) NEGATIVE Stl C. difficile Toxin PRESUMPTIVE Epiderm 027 NEGATIVE White Blood Count 11.1 Red Blood Count 2.54 Hemoglobin 8.9 Hematocrit 27.2 Mean Corpuscular Volume 107.1 Mean Corpuscular Hemoglobin 35.0 Mean Corpuscular Hemoglobin 32.7 Concent Red Cell Distribution Width 15.7 Platelet Count 145 Mean Platelet Volume 10.0 Sodium Level 141 Potassium Level 2.8 Chloride Level 109 Carbon Dioxide Level 22.5 Anion Gap 10 Blood Urea Nitrogen LESS THAN 1 Creatinine 0.50 Estimat Glomerular Filtration 142 Rate Random Glucose 123 Calcium Level 6.0 Protein Corrected Calcium 7.2 Phosphorus Level 0.6 Magnesium Level 1.6 Total Bilirubin 3.4 Aspartate Amino Transf 127 (AST/SGOT) Alanine Aminotransferase 22 (ALT/SGPT) Alkaline Phosphatase 204 Total Protein 4.5 Albumin 1.3 Date/Time Procedure Status Source Growth 06/12/16 23:30 Cryptosporidium Exam Received Stool Stool Pending 06/12/16 23:30 Giardia Antigen (AMADEO) Received Stool Stool Pending 06/12/16 23:30 Received Stool Stool Pending 06/10/16 08:40 Aerobic Blood Culture - Preliminary Resulted Blood Peripheral NO GROWTH IN 3 DAYS 06/10/16 08:40 Anaerobic Blood Culture - Preliminary Resulted Blood Peripheral NO GROWTH IN 3 DAYS 06/10/16 05:30 Urine Culture - Final Complete Urine Clean Catch 50-100,000 CFU/ML MIXED GRAM POSITIVE... 06/10/16 04:45 Influenza Types A,B Antigen (AMADEO) - Final Complete Nasal Washing NEGATIVE FOR FLU A AND B ANTIGEN.... Imaging Last Impressions Chest X-Ray 06/10/16 0413 Signed Impressions: Service Date/Time: Friday, June 10, 2016 04:31 - CONCLUSION: No acute disease. Chapo Egan Jr., MD Hepatobiliary Scan Nuclear Medicine 06/10/16 0000 Signed Impressions: Service Date/Time: Friday, June 10, 2016 12:50 - CONCLUSION: 1. Scintigraphic findings suggesting hepatocellular dysfunction with sluggish washout and persistent background activity. 2. Due to limited excretion, it is difficult to identify the extrahepatic biliary tree. However, activity is seen in the small bowel by 10 minutes. 3. No scintigraphic findings of acute cholecystitis. Bob Lara MD Cholangiopancreatography MRI 06/10/16 0000 Signed Impressions: Service Date/Time: Friday, June 10, 2016 12:25 - CONCLUSION: 1. Hepatosplenomegaly with significantly and inhomogeneously fatty infiltrated liver. 2. Slight ascites and bilateral pleural effusions. 3. Cholelithiasis and pericholecystic fluid and cholecystitis is not excluded. Mert Laurent MD Physical Exam HEENT: Normocephalic; atraumatic; no jaundice. CHEST: CTA CARDIAC: RRR ABDOMEN: Soft, nondistended, nontender; hepatosplenomegaly; bowel sounds are present in all four quadrants. EXTREMITIES: No clubbing, cyanosis, or edema. SKIN: Normal; no rash; no jaundice. 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 (Rosi Christine) Assessment and Plan Plan ASSESSMENT: - Alcoholic hepatitis. DF 24.68. Drinks 1 pint ETOH a day x 3-[address] with enlarged fatty liver, mild splenomegaly, small to moderate amount of ascites. T. Bili 7.2, AST 176, ALT 35, ALK phosph 344. Not a candidate for steroids, will add Pentoxifylline - Elevated LFTs, likely related to above, but does have cholelithiasis. HIDA ()------> 1. Scintigraphic findings suggesting hepatocellular dysfunction with sluggish washout and persistent background activity. 2. Due to limited excretion, it is difficult to identify the extrahepatic biliary tree. However, activity is seen in the small bowel by 10 minutes. 3. No scintigraphic findings of acute cholecystitis. MRCP (06/10/16)-----> 1. Hepatosplenomegaly with significantly and inhomogeneously fatty infiltrated liver. 2. Slight ascites and bilateral pleural effusions. 3. Cholelithiasis and pericholecystic fluid and cholecystitis is not excluded. Liver workup- Hepatitis panel pending, PEDRO pending, AMA pending, ASMA pending , AFP 3.4, Ceruloplasmin pending, Alpha 1 antitrypsin pending. LFTs slowly improving, T. Bili 3.4, AST 127, ALT 22, Alk Phosph 204. - N/V, Abdominal pain. CT Scan abdomen and pelvis (06/10/16)--> enlarged fatty liver, mild splenomegaly, small to moderate amount of ascites within the abdomen and pelivs, small right pleural effusion, small hiatal hernia, cholelithiasis. Denies any abdominal pain. - Cholelithiasis. MRCP without biliary obstruction, HIDA with hepatocellular dz. Not having abdominal pain. - Sepsis Criteria, Leukocytosis, Lactic acidosis. Abn. U/A, Urine Cx pending. Nasal washing (-) for FLU A/B, BCx pending. CXR okay. HIDA okay. - Coagulopathy. PT 15.8, INR 1.4, APTT 32.7, no active bleeding. - Diarrhea, CDiff negative. Awaiting stool cultures. Xifaxan, Flagyl, Levaquin. - Ascites, mild to mod. - Skin Rash. Per primary - Cough, SOB, small pleural effusion. Chest X-Ray (06/10/16)----> No acute disease. Improved. - Multiple electrolyte abnormalities. Per CCM - Abnormal U/A. Cx 50-100,000 CFU/mL mixed gram positive. S/P Zosyn. PLAN: - Regular Diet - Await stool studies - Cont. Pentoxifylline - Cont. PPI - Await Hepatitis panel - Await PEDRO, ASMA, AMA - Await Ceruloplasmin, Alpha 1 Antitrypsin - Monitor labs - Supportive care - Complete ETOH cessation- d/w patient - Further recommendations to follow based on results of above - PT seen and examined by Dr. Acosta and myself and this note is written on his behalf (Rosi Christine) Physician Comments Patient seen and examined Agree with above Continue with current supportive care Monitor labs (Axel Acosta MD) Rosi Christine Jun 13, 2016 12:16 Axel Acosta MD Jun 14, 2016 00:27
[2016-06-13] MEDS: LEVOFLOXACIN 500 MG PREMIX INJ 100 ML IV SCH (12:58)
[2016-06-13 13:31] LABS: ANA SCREEN NEG (NEG)
[2016-06-13 20:00] VITALS: BP 93/54; PULSE 118; RESP 19; TEMP 97.7; O2SAT 94
[2016-06-13] MEDS: MORPHINE SULFATE 4 MG/ML INJ IV PUSH PRN (23:59)
[2016-06-14] VITALS: BP 100/64; PULSE 118; RESP 19; TEMP 99.1; O2SAT 95
[2016-06-14] MEDS: CHLORHEXIDINE GLUCONATE 2 % 1 PACK (2 CLOTHS) TOP SCH (01:08)
[2016-06-14 04:00] VITALS: BP 90/57; PULSE 118; RESP 19; TEMP 98.6; O2SAT 98
[2016-06-14 05:16] LABS: HEMATOCRIT 27.5 % (35.0-46.0); MEAN CORPUSCULAR HEMOGLOBIN 35.3 PG (27.0-34.0); MEAN CORPUSCULAR HGB CONC 33.3 % (32.0-36.0); PLATELET COUNT 160 TH/MM3 (150-450); RED BLOOD COUNT 2.59 MIL/MM3 (4.00-5.30); RED CELL DISTRIBUTION WIDTH 16.7 % (11.6-17.2); REVIEW FLAG FINAL; WHITE BLOOD COUNT 12.5 TH/MM3 (4.0-11.0)
[2016-06-14] MEDS: metroNIDAZOLE 500 MG INJ 100 ML IV SCH ×3 (05:25→22:15)
[2016-06-14] MEDS: PENTOXIFYLLINE 400 MG CONTROLLED RELEASE TAB PO SCH ×3 (05:25→22:16)
[2016-06-14] MEDS: INSULIN NovoLIN REGULAR SUPPLEMENTAL SCALE SQ SCH ×5 (05:25→23:58)
[2016-06-14 05:34] LABS: ANION GAP 9 MEQ/L (5-15); BICARBONATE 21.1 MEQ/L (21.0-32.0); BLOOD UREA NITROGEN LESS THAN 1 MG/DL (7-18); CHLORIDE 112 MEQ/L (98-107); GLOMERULAR FILTRATION RATE 139 ML/MIN (>89); POTASSIUM 3.2 MEQ/L (3.5-5.1); SODIUM (NA) 142 MEQ/L (136-145)
[2016-06-14 05:50] LABS: CALCIUM-PROTEIN CORRECTED 7.3 MG/DL (8.5-10.1)
[2016-06-14] MEDS: SODIUM CHLORIDE 0.9% FLUSH 10 ML FLUSH IV FLUSH SCH ×2 (07:06→22:15)
[2016-06-14 08:00] VITALS: BP 91/51; PULSE 122; RESP 16; TEMP 97.8; O2SAT 95
--- NOTE | 2016-06-14 08:03 | HHI.PR ---
Subjective Remarks awake and alert, states that she needs sleep- staff coming in to wake her up "a lot" no further diarrhea- "finally stopped" denies any nausea or vomiting or abdominal pain- states abdomen is smaller compared than when she came in tachypneic- but not tremulous, tachycardic feels abdominal fullness Objective Vitals Vital Signs Date Time Temp Pulse Resp B/P Pulse Ox O2 Delivery O2 Flow Rate FiO2 06/14/16 04:00 98.6 118 19 90/57 98 06/14/16 00:00 99.1 118 19 100/64 95 06/13/16 20:00 97.7 118 19 93/54 94 06/13/16 12:00 96.6 117 20 90/50 90 I/O 06/13/16 06/13/16 06/13/16 06/14/16 06/14/16 06/14/16 07:00 15:00 23:00 07:00 15:00 23:00 Intake Total 911 ml 300 ml 1274 ml 1492 ml Output Total 150 ml Balance 911 ml 150 ml 1274 ml 1492 ml Intake Oral 240 ml 300 ml 240 ml 240 ml IV Total 671 ml 1034 ml 1252 ml Output Urine Total 150 ml # Voids 2 1 2 2 # Bowel Movements 7 2 2 2 Result Diagram: 06/14/16 0452 06/14/16 0452 Imaging Last Impressions Chest X-Ray 06/10/16 0413 Signed Impressions: Service Date/Time: Friday, June 10, 2016 04:31 - CONCLUSION: No acute disease. Chapo Egan Jr., MD Hepatobiliary Scan Nuclear Medicine 06/10/16 0000 Signed Impressions: Service Date/Time: Friday, June 10, 2016 12:50 - CONCLUSION: 1. Scintigraphic findings suggesting hepatocellular dysfunction with sluggish washout and persistent background activity. 2. Due to limited excretion, it is difficult to identify the extrahepatic biliary tree. However, activity is seen in the small bowel by 10 minutes. 3. No scintigraphic findings of acute cholecystitis. Bob Lara MD Cholangiopancreatography MRI 06/10/16 0000 Signed Impressions: Service Date/Time: Friday, June 10, 2016 12:25 - CONCLUSION: 1. Hepatosplenomegaly with significantly and inhomogeneously fatty infiltrated liver. 2. Slight ascites and bilateral pleural effusions. 3. Cholelithiasis and pericholecystic fluid and cholecystitis is not excluded. Mert Laurent MD Objective Remarks awake and alert, oriented x 3 mild icteresia no nuchal rigidity lungs clear regular rhythm, tachycardic abdomen- soft, + fluid wave extremities no edema neuro exam- unremarkable A/P Assessment and Plan Multiple electrolyte abnormalities- Hypokalemia, Hypomagnesemia, Hypophosphatemia, hypocalcemia Replace and monitor Monitor PO food intake tolerating well check Vitamin d levels Nutrition consult Alcohol hepatitis Ascites on exam ff LFTS No acute abdominal pain- ON IV antibiotics GI ff- work up in progress- appreciate recommendations Vomiting- improved Follow clinically- on PPI PRN zofran DTs (delirium tremens) SIRS- tachypneic- tachycardic 5mg Librium QID- decrease to bid PRN Lorazepam Follow for stabilization then wean as tolerated Thiamine Folic Acid check CXR, ABG Patient very motivated with alcohol cessation- per patient has a supportive PT consult for deconditioning CM consult Riley Howe MD Jun 14, 2016 08:03
[2016-06-14] MEDS ORDERED: POTASSIUM PHOSPHATE INJ 30 MMOL in SODIUM CHLOR 0.9% 250 ML INJ 250 ML IV ONE (08:30)
[2016-06-14] MEDS: CALCIUM CARBONATE 1.25 GM (CA 500 MG) TAB PO SCH ×2 (08:31→22:15)
[2016-06-14] MEDS: THIAMINE HCL 100 MG TAB PO SCH (08:31)
[2016-06-14] MEDS: MULTIVITAMIN TAB PO SCH (08:31)
[2016-06-14] MEDS: MAGNESIUM OXIDE 400 MG TAB PO SCH ×2 (08:31→22:16)
[2016-06-14] MEDS: FOLIC ACID 1 MG TAB PO SCH (08:31)
[2016-06-14] MEDS: RIFAXIMIN 550 MG TAB PO SCH ×2 (08:31→22:15)
[2016-06-14] MEDS: POTASSIUM PHOSPHATE MONOBASIC 500 MG TAB PO SCH (08:31)
[2016-06-14] MEDS: POTASSIUM CHLORIDE 10 MEQ CONTROLLED RELEASE TAB PO SCH ×2 (08:32→22:15)
[2016-06-14] MEDS: PANTOPRAZOLE SODIUM 40 MG VIAL IV PUSH SCH (08:34)
[2016-06-14] MEDS ORDERED: SODIUM PHOSPHATE INJ 30 MMOL in SODIUM CHLOR 0.9% 250 ML INJ 250 ML IV ONE (09:00)
--- NOTE | 2016-06-14 09:25 | HHI.GIFU ---
Subjective Remarks Resting in bed. Vomited bilious materials/meds this am. States she is still having "alot" of bowel movements, but when specifically asked how many, she said 2. No active bleeding. States her rash has improved (Rosi Christine) Objective Vitals I&O Vital Signs Date Time Temp Pulse Resp B/P Pulse Ox O2 Delivery O2 Flow Rate FiO2 06/14/16 08:00 97.8 122 16 91/51 95 06/14/16 04:00 98.6 118 19 90/57 98 06/14/16 00:00 99.1 118 19 100/64 95 06/13/16 20:00 97.7 118 19 93/54 94 06/13/16 12:00 96.6 117 20 90/50 90 I/O 06/13/16 06/13/16 06/13/16 06/14/16 06/14/16 06/14/16 07:00 15:00 23:00 07:00 15:00 23:00 Intake Total 911 ml 300 ml 1274 ml 1492 ml Output Total 150 ml Balance 911 ml 150 ml 1274 ml 1492 ml Intake Oral 240 ml 300 ml 240 ml 240 ml IV Total 671 ml 1034 ml 1252 ml Output Urine Total 150 ml # Voids 2 1 2 2 # Bowel Movements 7 2 2 2 Laboratory Laboratory Tests Test 06/14/16 04:52 White Blood Count 12.5 Red Blood Count 2.59 Hemoglobin 9.2 Hematocrit 27.5 Mean Corpuscular Volume 106.0 Mean Corpuscular Hemoglobin 35.3 Mean Corpuscular Hemoglobin 33.3 Concent Red Cell Distribution Width 16.7 Platelet Count 160 Mean Platelet Volume 9.7 Sodium Level 142 Potassium Level 3.2 Chloride Level 112 Carbon Dioxide Level 21.1 Anion Gap 9 Blood Urea Nitrogen LESS THAN 1 Creatinine 0.51 Estimat Glomerular Filtration 139 Rate Random Glucose 122 Calcium Level 6.1 Protein Corrected Calcium 7.3 Phosphorus Level 0.7 Total Protein 4.6 Date/Time Procedure Status Source Growth 06/12/16 23:30 Cryptosporidium Exam Received Stool Stool Pending 06/12/16 23:30 Giardia Antigen (AMADEO) Received Stool Stool Pending 06/12/16 23:30 - Final Complete Stool Stool NO ENTERIC PATHOGENS DETECTED BY PCR... 06/10/16 08:40 Aerobic Blood Culture - Preliminary Resulted Blood Peripheral NO GROWTH IN 3 DAYS 06/10/16 08:40 Anaerobic Blood Culture - Preliminary Resulted Blood Peripheral NO GROWTH IN 3 DAYS 06/10/16 05:30 Urine Culture - Final Complete Urine Clean Catch 50-100,000 CFU/ML MIXED GRAM POSITIVE... 06/10/16 04:45 Influenza Types A,B Antigen (AMADEO) - Final Complete Nasal Washing NEGATIVE FOR FLU A AND B ANTIGEN.... Imaging Last Impressions Chest X-Ray 06/10/16 0413 Signed Impressions: Service Date/Time: Friday, June 10, 2016 04:31 - CONCLUSION: No acute disease. Chapo Eagn Jr., MD Hepatobiliary Scan Nuclear Medicine 06/10/16 0000 Signed Impressions: Service Date/Time: Friday, June 10, 2016 12:50 - CONCLUSION: 1. Scintigraphic findings suggesting hepatocellular dysfunction with sluggish washout and persistent background activity. 2. Due to limited excretion, it is difficult to identify the extrahepatic biliary tree. However, activity is seen in the small bowel by 10 minutes. 3. No scintigraphic findings of acute cholecystitis. Bob Lara MD Cholangiopancreatography MRI 06/10/16 0000 Signed Impressions: Service Date/Time: Friday, June 10, 2016 12:25 - CONCLUSION: 1. Hepatosplenomegaly with significantly and inhomogeneously fatty infiltrated liver. 2. Slight ascites and bilateral pleural effusions. 3. Cholelithiasis and pericholecystic fluid and cholecystitis is not excluded. Mert Laurent MD Physical Exam HEENT: Normocephalic; atraumatic; no jaundice. CHEST: CTA CARDIAC: RRR ABDOMEN: Soft, nondistended, nontender; hepatosplenomegaly; bowel sounds are present in all four quadrants. EXTREMITIES: No clubbing, cyanosis, or edema. SKIN: Normal; no rash; no jaundice. 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 (Rosi Christine) Assessment and Plan Plan ASSESSMENT: - Alcoholic hepatitis. DF 24.68. Drinks 1 pint ETOH a day x 3-[address] with enlarged fatty liver, mild splenomegaly, small to moderate amount of ascites. Not a candidate for steroids. Pentoxifylline. - Elevated LFTs, likely related to above, but does have cholelithiasis. HIDA ()------> 1. Scintigraphic findings suggesting hepatocellular dysfunction with sluggish washout and persistent background activity. 2. Due to limited excretion, it is difficult to identify the extrahepatic biliary tree. However, activity is seen in the small bowel by 10 minutes. 3. No scintigraphic findings of acute cholecystitis. MRCP (06/10/16)-----> 1. Hepatosplenomegaly with significantly and inhomogeneously fatty infiltrated liver. 2. Slight ascites and bilateral pleural effusions. 3. Cholelithiasis and pericholecystic fluid and cholecystitis is not excluded. Liver workup- Hepatitis panel negative PEDRO negative, AMA pending, ASMA pending, AFP 3.4, Ceruloplasmin pending, Alpha 1 antitrypsin pending. LFTs slowly improving. - N/V, Abdominal pain. CT Scan abdomen and pelvis (06/10/16)--> enlarged fatty liver, mild splenomegaly, small to moderate amount of ascites within the abdomen and pelivs, small right pleural effusion, small hiatal hernia, cholelithiasis. Denies any abdominal pain. - Cholelithiasis. MRCP without biliary obstruction, HIDA with hepatocellular dz. Not having abdominal pain. - Sepsis Criteria, Leukocytosis, Lactic acidosis. Abn. U/A, Urine Cx pending. Nasal washing (-) for FLU A/B, BCx pending. CXR okay. HIDA okay. - Coagulopathy. PT 17.1, INR 1.5, no active bleeding. - Diarrhea, CDiff negative. Awaiting stool cultures. Xifaxan, Flagyl, Levaquin. - Ascites, mild to mod. - Skin Rash. Per primary - Cough, SOB, small pleural effusion. Chest X-Ray (06/10/16)----> No acute disease. Improved. - Multiple electrolyte abnormalities. Per CCM - Abnormal U/A. Cx 50-100,000 CFU/mL mixed gram positive. S/P Zosyn. PLAN: - Regular Diet - Await stool studies - Cont. Pentoxifylline - Cont. PPI - Cont. Zofran prn - Await ASMA, AMA - Await Ceruloplasmin, Alpha 1 Antitrypsin - Monitor labs - Supportive care - Complete ETOH cessation- d/w patient - Further recommendations to follow based on results of above - PT seen and examined by Dr. Acosta and myself and this note is written on his behalf (Rosi Christine) Physician Comments Patient seen and examined Agree with above Continue with current supportive care Monitor labs (Axel Acosta MD) Rosi Christine Jun 14, 2016 09:24 Axel Acosta MD Jun 14, 2016 23:06
--- NOTE | 2016-06-14 10:48 | RADRPT ---
EXAM DATE/TIME: 06/14/2016 10:02 [facility] COMPARISON: CT ABDOMEN & PELVIS W CONTRAST, June 10, 2016, 7:22. CHEST SINGLE AP, June 10, 2016, 4:31. INDICATIONS : Short of breath. MEDICAL HISTORY : None. SURGICAL HISTORY : None. ENCOUNTER: Initial ACUITY: 2 weeks PAIN SCORE: 0/10 LOCATION: Bilateral chest FINDINGS: AP and lateral views of the chest demonstrate a normal-sized cardiac silhouette. Lungs are underinfla antonio. There is pleural-parenchymal opacity at the right lung base and mild hazy opacity at the left humza ng base with slight blunting of the left costophrenic sulcus. There are interstitial opacities centra lly bilaterally. No pneumothorax is visualized. The bones and soft tissues demonstrate no acute findi ng. CONCLUSION: 1. Small right pleural effusion with associated compressive atelectasis and/or consolidation at the r ight lung base. 2. Possible trace left pleural effusion. Interstitial opacities bilaterally could indicate pulmonary edema. Qasim Osuna MD on June 14, 2016 at 10:44 Board Certified Radiologist. This report was verified electronically.
--- NOTE | 2016-06-14 10:52 | RADRPT ---
EXAM DATE/TIME: 06/14/2016 09:13 [facility] COMPARISON: No previous studies available for comparison. INDICATIONS : Ascites. MEDICAL HISTORY : ETOH. Abdominal pain. Nausea and vomiting. SURGICAL HISTORY : Right knee surgery. ENCOUNTER: Initial ACUITY: 1 day PAIN SCORE: 0/10 LOCATION: Abdomen. AREA EVALUATED: Abdomen. . FINDINGS: Imaging of the abdomen and pelvis was performed to evaluate for ascites for possible paracentesis. T here is only a small amount of fluid present surrounding the liver and in the midline inadequate for paracentesis. Note is made of a left effusion CONCLUSION: 1. Small volume ascites Jamaal Eastman MD on June 14, 2016 at 10:49 Board Certified Radiologist. This report was verified electronically.
[2016-06-14 12:00] VITALS: BP 95/63; PULSE 99; RESP 18; TEMP 97.5; O2SAT 95
[2016-06-14] MEDS: LEVOFLOXACIN 500 MG PREMIX INJ 100 ML IV SCH (12:46)
[2016-06-14 12:49] LABS: ANION GAP 8 MEQ/L (5-15); BLOOD UREA NITROGEN LESS THAN 1 MG/DL (7-18); CHLORIDE 112 MEQ/L (98-107); GLOMERULAR FILTRATION RATE 169 ML/MIN (>89); MAGNESIUM 1.6 MG/DL (1.5-2.5); POTASSIUM 3.3 MEQ/L (3.5-5.1); SODIUM (NA) 143 MEQ/L (136-145); TOTAL BILIRUBIN ADULT 3.7 MG/DL (0.2-1.0)
[2016-06-14 13:14] LABS: CALCIUM-PROTEIN CORRECTED 7.3 MG/DL (8.5-10.1)
[2016-06-14 16:00] VITALS: BP 103/58; PULSE 90; RESP 17; TEMP 96.9; O2SAT 95
[2016-06-14 20:00] VITALS: BP 101/68; PULSE 119; RESP 16; TEMP 98; O2SAT 95
[2016-06-14] MEDS: MORPHINE SULFATE 4 MG/ML INJ IV PUSH PRN (22:24)
[2016-06-15] MEDS: CHLORHEXIDINE GLUCONATE 2 % 1 PACK (2 CLOTHS) TOP SCH (03:56)
[2016-06-15] MEDS: INSULIN NovoLIN REGULAR SUPPLEMENTAL SCALE SQ SCH ×3 (06:00→16:50)
[2016-06-15] MEDS: PENTOXIFYLLINE 400 MG CONTROLLED RELEASE TAB PO SCH ×3 (06:08→21:57)
[2016-06-15] MEDS: metroNIDAZOLE 500 MG INJ 100 ML IV SCH (06:08)
[2016-06-15 08:00] VITALS: BP 96/51; PULSE 125; RESP 20; TEMP 99.2; O2SAT 93
[2016-06-15] MEDS: POTASSIUM CHLORIDE 10 MEQ CONTROLLED RELEASE TAB PO SCH ×2 (09:04→21:58)
[2016-06-15] MEDS: FOLIC ACID 1 MG TAB PO SCH (09:04)
[2016-06-15] MEDS: SODIUM CHLORIDE 0.9% FLUSH 10 ML FLUSH IV FLUSH SCH ×2 (09:04→22:00)
[2016-06-15] MEDS: PANTOPRAZOLE SODIUM 40 MG VIAL IV PUSH SCH (09:05)
[2016-06-15] MEDS: CALCIUM CARBONATE 1.25 GM (CA 500 MG) TAB PO SCH ×2 (09:05→21:57)
[2016-06-15] MEDS: POTASSIUM PHOSPHATE MONOBASIC 500 MG TAB PO SCH (09:05)
[2016-06-15] MEDS: RIFAXIMIN 550 MG TAB PO SCH ×2 (09:05→21:57)
[2016-06-15] MEDS: MAGNESIUM OXIDE 400 MG TAB PO SCH ×2 (09:05→21:58)
[2016-06-15] MEDS: THIAMINE HCL 100 MG TAB PO SCH (09:05)
[2016-06-15] MEDS: MULTIVITAMIN TAB PO SCH (09:05)
[2016-06-15 12:00] VITALS: BP 98/60; PULSE 121; RESP 32; TEMP 97; O2SAT 97
[2016-06-15] MEDS: MORPHINE SULFATE 4 MG/ML INJ IV PUSH PRN (12:09)
[2016-06-15] MEDS: LEVOFLOXACIN 500 MG PREMIX INJ 100 ML IV SCH (12:11)
--- NOTE | 2016-06-15 12:20 | HHI.PR ---
Subjective Remarks having - diarrhea- brown liquid stools, non bloody persitently tachycardic and tachypneic Objective Vitals Vital Signs Date Time Temp Pulse Resp B/P Pulse Ox O2 Delivery O2 Flow Rate FiO2 06/15/16 08:00 99.2 125 20 96/51 93 06/14/16 22:34 18 06/14/16 20:00 98.0 119 16 101/68 95 06/14/16 16:00 96.9 90 17 103/58 95 I/O 06/14/16 06/14/16 06/14/16 06/15/16 06/15/16 06/15/16 07:00 15:00 23:00 07:00 15:00 23:00 Intake Total 1492 ml 599 ml 536 ml 240 ml Balance 1492 ml 599 ml 536 ml 240 ml Intake Oral 240 ml 120 ml 240 ml 240 ml IV Total 1252 ml 479 ml 296 ml 0 ml # Voids 2 2 1 2 # Bowel Movements 2 0 1 1 Result Diagram: 06/14/16 0452 06/14/16 1155 Imaging Last Impressions Chest X-Ray 06/14/16 0000 Signed Impressions: Service Date/Time: Tuesday, June 14, 2016 10:02 - CONCLUSION: 1. Small right pleural effusion with associated compressive atelectasis and/or consolidation at the right lung base. 2. Possible trace left pleural effusion. Interstitial opacities bilaterally could indicate pulmonary edema. Qasim Osuna MD Abdomen Ultrasound 06/14/16 0000 Signed Impressions: Service Date/Time: Tuesday, June 14, 2016 09:13 - CONCLUSION: 1. Small volume ascites Jamaal Eastman MD Hepatobiliary Scan Nuclear Medicine 06/10/16 0000 Signed Impressions: Service Date/Time: Friday, June 10, 2016 12:50 - CONCLUSION: 1. Scintigraphic findings suggesting hepatocellular dysfunction with sluggish washout and persistent background activity. 2. Due to limited excretion, it is difficult to identify the extrahepatic biliary tree. However, activity is seen in the small bowel by 10 minutes. 3. No scintigraphic findings of acute cholecystitis. Bob Lara MD Cholangiopancreatography MRI 06/10/16 0000 Signed Impressions: Service Date/Time: Friday, June 10, 2016 12:25 - CONCLUSION: 1. Hepatosplenomegaly with significantly and inhomogeneously fatty infiltrated liver. 2. Slight ascites and bilateral pleural effusions. 3. Cholelithiasis and pericholecystic fluid and cholecystitis is not excluded. Mert Laurent MD Objective Remarks awake and alert, oriented x 3 mild icteresia no nuchal rigidity lungs decrease breath sounds- right regular rhythm, tachycardic abdomen- soft, + fluid wave, no guarding extremities no edema neuro exam- unremarkable A/P Assessment and Plan Multiple electrolyte abnormalities- Hypokalemia, Hypomagnesemia, Hypophosphatemia, hypocalcemia Replace and monitor Monitor PO food intake tolerating well BMP now Alcohol hepatitis Ascites on exam ff LFTS No acute abdominal pain- ON IV antibiotics GI ff- work up in progress- appreciate recommendations Vomiting- improved Follow clinically- on PPI PRN zofran DTs (delirium tremens) SIRS- tachypneic- tachycardic Gram positive bacteremi 5mg Librium QID- decrease to bid PRN Lorazepam Follow for stabilization then wean as tolerated Thiamine Folic Acid -ID consult for need for any antibiotics Diarrhea- ff electrolytes imodium x 1 ? Pleural effusion - right Patient very motivated with alcohol cessation- per patient has a supportive PT consult for deconditioning CM consult Riley Howe MD Jun 15, 2016 12:20
[2016-06-15] MEDS ORDERED: LOPERAMIDE HCL 2 MG CAP PO ONE (12:45)
[2016-06-15 13:35] LABS: ALKALINE PHOSPHATASE 211 U/L (45-117); ALT (GPT) 22 U/L (10-53); ANION GAP 7 MEQ/L (5-15); AST (GOT) 120 U/L (15-37); BICARBONATE 24.1 MEQ/L (21.0-32.0); BLOOD UREA NITROGEN LESS THAN 1 MG/DL (7-18); CALCIUM-PROTEIN CORRECTED 7.5 MG/DL (8.5-10.1); CHLORIDE 111 MEQ/L (98-107); GLOMERULAR FILTRATION RATE 133 ML/MIN (>89); POTASSIUM 3.5 MEQ/L (3.5-5.1); SODIUM (NA) 142 MEQ/L (136-145); TOTAL BILIRUBIN ADULT 4.5 MG/DL (0.2-1.0)
[2016-06-15 13:39] VITALS: O2SAT 95
--- NOTE | 2016-06-15 13:52 | PD.CONS ---
History of Present Illness Service Infectious disease Consult Requested By Dr Jhonny Howe Reason for Consult Evaluate patient with positive blood culture Primary Care Physician Iggy Tamayo M.D. Diagnoses: History of Present Illness Patient seen and examined. Records reviewed. Patient is a 31-year-old female, presented to the hospital complaining of cough , shortness of breath, and cough. She stated about 3 days ago she had some flea bites and then she noted a more diffuse, no rash. Patient also has been complaining of being tired and hurting everywhere. She also has had some nausea and vomiting, and has had very poor oral intake. She's had some abdominal pain, mostly on the right side which radiates to the back. She denies any diarrhea, denies any urinary complaints. His been no fever or chills or sweats. On presentation she had leukocytosis. There was some findings to suggest sepsis. Her LFTs are elevated. Testing included an influenza testing that was negative. Her UA was normal. GI evaluated the patient, and felt that her abnormality are due to acute alcoholic hepatitis. Patient drinks alcohol about a pint a day probably in the last 3 years. There were 2 blood cultures done on admission, and one blood culture that was done is now reported as growing pleomorphic gram-positive davey. Patient has been on Levaquin and Flagyl that was started by GI since admission. Patient has not been febrile. Her WBC is down to 12. She is complaining currently of diarrhea. Stool for C. difficile is negative. Her respiratory complaints are better. She has had some abdominal distention, and an ultrasound of her abdomen done yesterday showing small volume ascites. Infectious disease consultation is requested to evaluate the patient. Review of Systems Constitutional: COMPLAINS OF: Fatigue, DENIES: Fever, Chills Eyes: DENIES: Eye pain Ears, nose, mouth, throat: DENIES: Nasal discharge, Oral lesions, Throat pain, Sinus Pain Respiratory: DENIES: Cough, Sputum production, Shortness of breath Cardiovascular: DENIES: Chest pain, Palpitations Gastrointestinal: COMPLAINS OF: Abdominal pain, Diarrhea, Nausea, Vomiting, DENIES: Difficulty Swallowing, Anorexia Genitourinary: DENIES: Urgency, Dysuria Musculoskeletal: COMPLAINS OF: Muscle aches, DENIES: Joint pain, Joint Swelling Integumentary: COMPLAINS OF: Rash Hematologic/lymphatic: COMPLAINS OF: Bruising Neurologic: DENIES: Headache, Localized weakness Psychiatric: DENIES: Confusion, Hallucinations Past Family Social History Allergies: Coded Allergies: No Known Allergies (Unverified , 06/10/16) Past Medical History Alcohol abuse Past Surgical History Arthroscopic knee surgery Active Ordered Medications Os-Zac Librium Romazicon Folate acid Insulin Levaquin Ativan Magnesium Flagyl Morphine MVI Protonix [place] Potassium Rifaximin Thiamine Social History Drinks 1 pint of etoh today. No tobacco. No illicit drug use. Physical Exam Vital Signs Vital Signs Date Time Temp Pulse Resp B/P Pulse Ox O2 Delivery O2 Flow Rate FiO2 06/15/16 12:00 97.0 121 32 98/60 97 06/15/16 08:00 99.2 125 20 96/51 93 06/14/16 22:34 18 06/14/16 20:00 98.0 119 16 101/68 95 06/14/16 16:00 96.9 90 17 103/58 95 Physical Exam GENERAL: This is a thin, well-developed female, awake and alert, in no apparent distress. SKIN: Warm and dry. She has spider angiomata has in her upper chest and UE. She also has petechial rash in her lower extremity. HEAD: Atraumatic. Normocephalic. No temporal or scalp tenderness. EYES: [place] conjunctivae. No petechia or hemorrhage. Pupils equal round and reactive. Extraocular motions intact. Has scleral icterus. No injection or drainage. ENT: Nose without bleeding, or purulent drainage. Moist oral mucosa. Throat has erythema in posterior pharynx, no exudate. Uvula midline. Airway patent. NECK: Trachea midline. No JVD or lymphadenopathy. Supple, nontender, no meningeal signs. CARDIOVASCULAR: Regular rate and rhythm without murmurs, gallops, or rubs. RESPIRATORY: Clear to auscultation. Breath sounds equal bilaterally. No wheezes , rales, or rhonchi. Decreased at the bases. GASTROINTESTINAL: Abdomen mildly distended, globular, has an enlarged liver, that is tender. She is also tender in the epigastric area, no guarding or rebound. Bowel sounds are present and normoactive. MUSCULOSKELETAL: Extremities without clubbing, cyanosis, or edema. No joint tenderness, effusion, or edema noted. No calf tenderness. NEUROLOGICAL: Awake and alert. Cranial nerves II through XII intact. Five out of 5 muscle strength in all muscle groups. Normal speech. PSYCH: Calm and cooperative LINE: PIV with no evidence of infection Laboratory Laboratory Tests Test 06/15/16 12:28 Sodium Level 142 Potassium Level 3.5 Chloride Level 111 Carbon Dioxide Level 24.1 Anion Gap 7 Blood Urea Nitrogen LESS THAN 1 Creatinine 0.53 Estimat Glomerular Filtration 133 Rate Random Glucose 113 Calcium Level 6.6 Protein Corrected Calcium 7.5 Total Bilirubin 4.5 Aspartate Amino Transf 120 (AST/SGOT) Alanine Aminotransferase 22 (ALT/SGPT) Alkaline Phosphatase 211 Total Protein 5.2 Albumin 1.6 Date/Time Procedure Status Source Growth 06/12/16 23:30 Cryptosporidium Exam - Final Complete Stool Stool NEGATIVE - NO CRYPTOSPORIDIUM ANTIGEN... 06/12/16 23:30 Giardia Antigen ([facility]O) - Final Complete Stool Stool NEGATIVE - NO GIARDIA ANTIGEN DETECTE... 06/12/16 23:30 - Final Complete Stool Stool NO ENTERIC PATHOGENS DETECTED BY PCR... Result Diagram: 06/14/16 0452 06/15/16 1228 Imaging RADIOLOGY STUDIES/FILMS REVIEWED Chest X-Ray 06/14/16 0000 Signed Impressions: Service Date/Time: Tuesday, June 14, 2016 10:02 - CONCLUSION: 1. Small right pleural effusion with associated compressive atelectasis and/or consolidation at the right lung base. 2. Possible trace left pleural effusion. Interstitial opacities bilaterally could indicate pulmonary edema. Qasim Osuna MD Abdomen Ultrasound 06/14/16 0000 Signed Impressions: Service Date/Time: Tuesday, June 14, 2016 09:13 - CONCLUSION: 1. Small volume ascites Jamaal Eastman MD Hepatobiliary Scan Nuclear Medicine 06/10/16 0000 Signed Impressions: Service Date/Time: Friday, June 10, 2016 12:50 - CONCLUSION: 1. Scintigraphic findings suggesting hepatocellular dysfunction with sluggish washout and persistent background activity. 2. Due to limited excretion, it is difficult to identify the extrahepatic biliary tree. However, activity is seen in the small bowel by 10 minutes. 3. No scintigraphic findings of acute cholecystitis. Bob Lara MD Cholangiopancreatography MRI 06/10/16 0000 Signed Impressions: Service Date/Time: Friday, June 10, 2016 12:25 - CONCLUSION: 1. Hepatosplenomegaly with significantly and inhomogeneously fatty infiltrated liver. 2. Slight ascites and bilateral pleural effusions. 3. Cholelithiasis and pericholecystic fluid and cholecystitis is not excluded. Mert Laurent MD Assessment and Plan Assessment and Plan IMPRESSION One (+) BC with pleomorphic GPR C/W contamination ETOH hepatitis Diarrhea, C diff negative - patient states her stool is red RECOMMENDATION Stool for occult blood Stop Levaquin and Flagyl I will follow final BC results Will not start any new Abx Monitor progress Thank you for this consultation Discussed Condition With Explained plan to the patient Whit Rock MD Jun 15, 2016 13:52
[2016-06-15 13:53] LABS: MITOCHONDRIAL ABS LESS THAN 20.0 U (())
[2016-06-15 13:54] LABS: BLOOD GAS BASE EXCESS -3.6 mmol/L (-2-2); BLOOD GAS CARBOXYHEMOGLOBIN 1.6 % (0-4); BLOOD GAS HCO3 20 mmol/L (22-26); BLOOD GAS METHEMOGLOBIN 0.7 % (0-2); BLOOD GAS O2 HGB SATURATION 93 % (90-100); BLOOD GAS OXYGEN CONTENT 13.5 Vol % (12.0-20.0); BLOOD GAS PCO2 28 mmHg (38-42); BLOOD GAS PO2 78 mmHg (61-120); BLOOD GAS TOTAL HGB 10.2 G/DL (12.0-16.0); CRITICAL VALUE NO; DRAW SITE RT RADIAL; LITER FLOW 4 L/M; NUMBER OF ARTERIAL PUNCTURES 1; OXYGEN DEVICE NASAL CANNULA; STAT YES; TEMP CORR TO 98.6
--- NOTE | 2016-06-15 14:33 | RADRPT ---
EXAM DATE/TIME: 06/15/2016 13:21 [place] COMPARISON: CHEST PA & LAT, June 14, 2016, 10:02. INDICATIONS : Short of breath MEDICAL HISTORY : None. SURGICAL HISTORY : None. ENCOUNTER: Subsequent ACUITY: 2 weeks PAIN SCORE: 0/10 LOCATION: Bilateral chest FINDINGS: There is slight worsening of right pleural effusion and right lung base consolidation and/or compress keshawn collapse. Left pleural effusion has not changed and slight left lung base filtrate is also seen. The rest of the examination has not significantly changed. Mild case of pulmonary venous congestion a nd edema may also be present. CONCLUSION: Slight worsening of right pleural effusion and right lung base consolidation, otherwise no change in left pleural effusion and probable mild case of pulmonary edema KGinger Laurent MD on June 15, 2016 at 14:31 Board Certified Radiologist. This report was verified electronically.
[2016-06-15 16:00] VITALS: BP 99/61; PULSE 121; RESP 28; TEMP 95.7; O2SAT 98
[2016-06-15 16:25] LABS: AUTOMATED NEUTROPHIL # 12.3 TH/MM3 (1.8-7.7); BASOPHIL # 0.3 TH/MM3 (0-0.2); BASOPHIL % 1.7 % (0.0-2.0); EOSINOPHIL # 0.1 TH/MM3 (0-0.4); EOSINOPHIL % 0.7 % (0.0-4.0); HEMO FLAGS DIFF FINAL; LYMPH % 7.7 % (9.0-44.0); LYMPHOCYTE # 1.1 TH/MM3 (1.0-4.8); MEAN CELL VOLUME 106.8 FL (80.0-100.0); MEAN CORPUSCULAR HEMOGLOBIN 34.1 PG (27.0-34.0); MEAN CORPUSCULAR HGB CONC 31.9 % (32.0-36.0); NEUT % 83.9 % (16.0-70.0); PLATELET COUNT 177 TH/MM3 (150-450); RED BLOOD COUNT 3.18 MIL/MM3 (4.00-5.30); RED CELL DISTRIBUTION WIDTH 15.9 % (11.6-17.2); WHITE BLOOD COUNT 14.7 TH/MM3 (4.0-11.0)
[2016-06-15 16:30] LABS: INTERNATIONAL NORMALIZED RATIO 1.8 RATIO; PROTHROMBIN TIME - PATIENT 20.1 SEC (9.8-11.6)
[2016-06-15] MEDS: LORazepam 0.5 MG TAB PO SCH ×2 (16:44→21:58)
[2016-06-15 17:47] VITALS: O2SAT 93
[2016-06-15 20:00] VITALS: BP 90/54; PULSE 120; RESP 18; TEMP 98.6; O2SAT 95
--- NOTE | 2016-06-15 23:21 | HHI.GIFU ---
Subjective Remarks Comfortable in bed with no new complaints Objective Vitals I&O Vital Signs Date Time Temp Pulse Resp B/P Pulse Ox O2 Delivery O2 Flow Rate FiO2 06/15/16 17:47 93 Nasal Cannula 4.00 06/15/16 16:00 95.7 121 28 99/61 98 06/15/16 13:39 95 Nasal Cannula 4.00 06/15/16 12:00 97.0 121 32 98/60 97 06/15/16 08:00 99.2 125 20 96/51 93 I/O 06/14/16 06/14/16 06/14/16 06/15/16 06/15/16 06/15/16 07:00 15:00 23:00 07:00 15:00 23:00 Intake Total 1492 ml 599 ml 536 ml 240 ml 480 ml Balance 1492 ml 599 ml 536 ml 240 ml 480 ml Intake Oral 240 ml 120 ml 240 ml 240 ml 480 ml IV Total 1252 ml 479 ml 296 ml 0 ml # Voids 2 2 1 2 2 # Bowel Movements 2 0 1 1 10 Laboratory Laboratory Tests Test 06/15/16 06/15/16 06/15/16 12:28 13:43 15:48 Sodium Level 142 Potassium Level 3.5 Chloride Level 111 Carbon Dioxide Level 24.1 Anion Gap 7 Blood Urea Nitrogen LESS THAN 1 Creatinine 0.53 Estimat Glomerular Filtration 133 Rate Random Glucose 113 Calcium Level 6.6 Protein Corrected Calcium 7.5 Total Bilirubin 4.5 Aspartate Amino Transf 120 (AST/SGOT) Alanine Aminotransferase 22 (ALT/SGPT) Alkaline Phosphatase 211 Total Protein 5.2 Albumin 1.6 25-Hydroxy Vitamin D Total 7.3 Blood Gas Puncture Site RT RADIAL Blood Gas Patient Temperature 98.6 Blood Gas HCO3 20 Blood Gas Base Excess -3.6 Blood Gas Oxygen Saturation 93 Arterial Blood pH 7.46 Arterial Blood Partial 28 Pressure CO2 Arterial Blood Partial 78 Pressure O2 Arterial Blood Oxygen Content 13.5 Arterial Blood 1.6 Carboxyhemoglobin Arterial Blood Methemoglobin 0.7 Blood Gas Hemoglobin 10.2 Oxygen Delivery Device NASAL CANNULA Blood Gas Liter Flow 4 White Blood Count 14.7 Red Blood Count 3.18 Hemoglobin 10.9 Hematocrit 34.0 Mean Corpuscular Volume 106.8 Mean Corpuscular Hemoglobin 34.1 Mean Corpuscular Hemoglobin 31.9 Concent Red Cell Distribution Width 15.9 Platelet Count 177 Mean Platelet Volume 10.0 Neutrophils (%) (Auto) 83.9 Lymphocytes (%) (Auto) 7.7 Monocytes (%) (Auto) 6.0 Eosinophils (%) (Auto) 0.7 Basophils (%) (Auto) 1.7 Neutrophils # (Auto) 12.3 Lymphocytes # (Auto) 1.1 Monocytes # (Auto) 0.9 Eosinophils # (Auto) 0.1 Basophils # (Auto) 0.3 CBC Comment DIFF FINAL Differential Comment Prothrombin Time 20.1 Prothromb Time International 1.8 Ratio Date/Time Procedure Status Source Growth 06/12/16 23:30 Cryptosporidium Exam - Final Complete Stool Stool NEGATIVE - NO CRYPTOSPORIDIUM ANTIGEN... 06/12/16 23:30 Giardia Antigen ([facility]) - Final Complete Stool Stool NEGATIVE - NO GIARDIA ANTIGEN DETECTE... 06/12/16 23:30 - Final Complete Stool Stool NO ENTERIC PATHOGENS DETECTED BY PCR... Imaging Last 48 hours Impressions Chest X-Ray 06/15/16 1259 Signed Impressions: Service Date/Time: Wednesday, June 15, 2016 13:21 - CONCLUSION: Slight worsening of right pleural effusion and right lung base consolidation, otherwise no change in left pleural effusion and probable mild case of pulmonary edema K. Antwon Laurent MD Chest X-Ray 06/14/16 0000 Signed Impressions: Service Date/Time: Tuesday, June 14, 2016 10:02 - CONCLUSION: 1. Small right pleural effusion with associated compressive atelectasis and/or consolidation at the right lung base. 2. Possible trace left pleural effusion. Interstitial opacities bilaterally could indicate pulmonary edema. Qasim Osuna MD Abdomen Ultrasound 06/14/16 0000 Signed Impressions: Service Date/Time: Tuesday, June 14, 2016 09:13 - CONCLUSION: 1. Small volume ascites Jamaal Eastman MD Physical Exam HEENT: Normocephalic; atraumatic; no jaundice. CHEST: CTA CARDIAC: RRR ABDOMEN: Soft, nondistended, nontender; hepatosplenomegaly; bowel sounds are present in all four quadrants. EXTREMITIES: No clubbing, cyanosis, or edema. SKIN: Normal; no rash; no jaundice. PRICING SUPERVISOR: No focal deficits; alert and oriented times three. Assessment and Plan Plan ASSESSMENT: - Alcoholic hepatitis. DF 24.68. Drinks 1 pint ETOH a day x 3-[address] with enlarged fatty liver, mild splenomegaly, small to moderate amount of ascites. Not a candidate for steroids. Pentoxifylline. - Elevated LFTs, likely related to above, but does have cholelithiasis. HIDA ()------> 1. Scintigraphic findings suggesting hepatocellular dysfunction with sluggish washout and persistent background activity. 2. Due to limited excretion, it is difficult to identify the extrahepatic biliary tree. However, activity is seen in the small bowel by 10 minutes. 3. No scintigraphic findings of acute cholecystitis. MRCP (06/10/16)-----> 1. Hepatosplenomegaly with significantly and inhomogeneously fatty infiltrated liver. 2. Slight ascites and bilateral pleural effusions. 3. Cholelithiasis and pericholecystic fluid and cholecystitis is not excluded. Liver workup- Hepatitis panel negative PEDRO negative, AMA pending, ASMA pending, AFP 3.4, Ceruloplasmin pending, Alpha 1 antitrypsin pending. LFTs slowly improving. - N/V, Abdominal pain. CT Scan abdomen and pelvis (06/10/16)--> enlarged fatty liver, mild splenomegaly, small to moderate amount of ascites within the abdomen and pelivs, small right pleural effusion, small hiatal hernia, cholelithiasis. Denies any abdominal pain. - Cholelithiasis. MRCP without biliary obstruction, HIDA with hepatocellular dz. Not having abdominal pain. - Sepsis Criteria, Leukocytosis, Lactic acidosis. Abn. U/A, Urine Cx pending. Nasal washing (-) for FLU A/B, BCx pending. CXR okay. HIDA okay. - Coagulopathy. PT 17.1, INR 1.5, no active bleeding. - Diarrhea, CDiff negative. Awaiting stool cultures. Xifaxan, Flagyl, Levaquin. - Ascites, mild to mod. - Skin Rash. Per primary - Cough, SOB, small pleural effusion. Chest X-Ray (06/10/16)----> No acute disease. Improved. - Multiple electrolyte abnormalities. Per CCM - Abnormal U/A. Cx 50-100,000 CFU/mL mixed gram positive. S/P Zosyn. PLAN: - Regular Diet -Stool studies negative for C. difficile - Cont. Pentoxifylline - Cont. PPI - Cont. Zofran prn -So far liver workup is unremarkable - Monitor labs - Supportive care - Complete ETOH cessation- d/w patient - Further recommendations to follow based on results of above Axel Acosta MD Jun 15, 2016 23:21
[2016-06-16] VITALS (11 sets, daily range): BP systolic 94–112; BP diastolic 57–68; PULSE 116–129; RESP 16–24; TEMP 97.8–99.4; O2SAT 92–96
[2016-06-16] MEDS: MORPHINE SULFATE 4 MG/ML INJ IV PUSH PRN ×3 (00:04→21:10)
[2016-06-16] MEDS: CHLORHEXIDINE GLUCONATE 2 % 1 PACK (2 CLOTHS) TOP SCH (04:00)
[2016-06-16] MEDS: PENTOXIFYLLINE 400 MG CONTROLLED RELEASE TAB PO SCH ×3 (05:52→20:58)
[2016-06-16] MEDS: LORazepam 0.5 MG TAB PO SCH ×3 (05:52→20:59)
[2016-06-16] MEDS: INSULIN NovoLIN REGULAR SUPPLEMENTAL SCALE SQ SCH ×4 (05:56→17:03)
[2016-06-16] MEDS: THIAMINE HCL 100 MG TAB PO SCH (08:04)
[2016-06-16] MEDS: MULTIVITAMIN TAB PO SCH (08:04)
[2016-06-16] MEDS: POTASSIUM CHLORIDE 10 MEQ CONTROLLED RELEASE TAB PO SCH ×2 (08:04→20:58)
[2016-06-16] MEDS: CALCIUM CARBONATE 1.25 GM (CA 500 MG) TAB PO SCH ×2 (08:04→20:59)
[2016-06-16] MEDS: FOLIC ACID 1 MG TAB PO SCH (08:04)
[2016-06-16] MEDS: RIFAXIMIN 550 MG TAB PO SCH ×2 (08:04→20:58)
[2016-06-16] MEDS: MAGNESIUM OXIDE 400 MG TAB PO SCH ×2 (08:04→20:58)
[2016-06-16] MEDS: PANTOPRAZOLE SOD 40 MG DELAYED RELEASE TAB PO SCH (08:04)
[2016-06-16] MEDS: POTASSIUM PHOSPHATE MONOBASIC 500 MG TAB PO SCH (08:05)
[2016-06-16] MEDS: SODIUM CHLORIDE 0.9% FLUSH 10 ML FLUSH IV FLUSH SCH ×2 (08:05→20:58)
[2016-06-16 10:46] LABS: MEAN CELL VOLUME 106.6 FL (80.0-100.0); MEAN CORPUSCULAR HEMOGLOBIN 34.8 PG (27.0-34.0); MEAN CORPUSCULAR HGB CONC 32.7 % (32.0-36.0); PLATELET COUNT 158 TH/MM3 (150-450); RED BLOOD COUNT 2.72 MIL/MM3 (4.00-5.30); RED CELL DISTRIBUTION WIDTH 15.6 % (11.6-17.2); REVIEW FLAG FINAL; WHITE BLOOD COUNT 12.9 TH/MM3 (4.0-11.0)
[2016-06-16 10:55] LABS: ALKALINE PHOSPHATASE 176 U/L (45-117); ALT (GPT) 18 U/L (10-53); ANION GAP 7 MEQ/L (5-15); AST (GOT) 111 U/L (15-37); BICARBONATE 22.6 MEQ/L (21.0-32.0); BLOOD UREA NITROGEN LESS THAN 1 MG/DL (7-18); CALCIUM-PROTEIN CORRECTED 8.1 MG/DL (8.5-10.1); CHLORIDE 111 MEQ/L (98-107); GLOMERULAR FILTRATION RATE 174 ML/MIN (>89); POTASSIUM 4.2 MEQ/L (3.5-5.1); SODIUM (NA) 141 MEQ/L (136-145); TOTAL BILIRUBIN ADULT 4.3 MG/DL (0.2-1.0)
--- NOTE | 2016-06-16 11:08 | HHI.PR ---
Subjective Remarks states feeling slightly better + dyspnea, shortness of breath with even minimal exertion denies any abdominal pain Objective Vitals Vital Signs Date Time Temp Pulse Resp B/P Pulse Ox O2 Delivery O2 Flow Rate FiO2 06/16/16 08:00 99.1 122 17 95/57 95 06/16/16 00:13 18 06/16/16 00:00 97.8 129 18 94/60 95 06/15/16 20:00 98.6 120 18 90/54 95 06/15/16 17:47 93 Nasal Cannula 4.00 06/15/16 16:00 95.7 121 28 99/61 98 06/15/16 13:39 95 Nasal Cannula 4.00 06/15/16 12:00 97.0 121 32 98/60 97 I/O 06/15/16 06/15/16 06/15/16 06/16/16 06/16/16 06/16/16 07:00 15:00 23:00 07:00 15:00 23:00 Intake Total 240 ml 480 ml 420 ml 0 ml 120 ml Balance 240 ml 480 ml 420 ml 0 ml 120 ml Intake Oral 240 ml 480 ml 420 ml 120 ml IV Total 0 ml 0 ml 0 ml # Voids 2 2 3 3 # Bowel Movements 1 10 1 2 Result Diagram: 06/16/16 1007 06/15/16 1228 Imaging Last Impressions Chest X-Ray 06/15/16 1259 Signed Impressions: Service Date/Time: Wednesday, June 15, 2016 13:21 - CONCLUSION: Slight worsening of right pleural effusion and right lung base consolidation, otherwise no change in left pleural effusion and probable mild case of pulmonary edema KGinger Laurent MD Abdomen Ultrasound 06/14/16 0000 Signed Impressions: Service Date/Time: Tuesday, June 14, 2016 09:13 - CONCLUSION: 1. Small volume ascites Jamaal Eastman MD Hepatobiliary Scan Nuclear Medicine 06/10/16 0000 Signed Impressions: Service Date/Time: Friday, June 10, 2016 12:50 - CONCLUSION: 1. Scintigraphic findings suggesting hepatocellular dysfunction with sluggish washout and persistent background activity. 2. Due to limited excretion, it is difficult to identify the extrahepatic biliary tree. However, activity is seen in the small bowel by 10 minutes. 3. No scintigraphic findings of acute cholecystitis. Bob Lara MD Cholangiopancreatography MRI 06/10/16 0000 Signed Impressions: Service Date/Time: Friday, June 10, 2016 12:25 - CONCLUSION: 1. Hepatosplenomegaly with significantly and inhomogeneously fatty infiltrated liver. 2. Slight ascites and bilateral pleural effusions. 3. Cholelithiasis and pericholecystic fluid and cholecystitis is not excluded. Mert Laurent MD Objective Remarks awake and alert, oriented x 3 mild icteresia no nuchal rigidity decrease breath sounds and decrease vocal fremitis- right base to mid regular rhythm, tachycardic abdomen- soft, + fluid wave, no guarding extremities no edema neuro exam- unremarkable A/P Assessment and Plan Multiple electrolyte abnormalities- Hypokalemia, Hypomagnesemia, Hypophosphatemia, hypocalcemia Replace and monitor Monitor PO food intake tolerating better gradually Pleural Effusion right- r/o infectious etiology- increasing SOB with exertion, tachycardic check US- if significant do thoracentesis consult Pulmonary for possible thoracentesis check BNP- check ECHO- ? EF as etio for effusion ? ETOH related Gram + bacteremia contaminant -appreciate ID input -Antibotics discontinue ff BMP Alcohol hepatitis Ascites on exam- US shows minimal fluid ff LFTS No acute abdominal pain- ON IV antibiotics GI ff- work up in progress- appreciate recommendations if US of chest- no significant effusion- will recheck abdomen for increase ascites Vomiting- improved Follow clinically- on PPI PRN zofran DTs (delirium tremens) SIRS- Thiamine Folic Acid continue Ativan- Pleural Effusion right- increasing SOB with exertion, tachycardic check US- if significant do thoracentesis consult Pulmonary for possible thoracentesis check BNP- check ECHO- ? EF as etio for effusion ? ETOH related Gram + bacteremia contaminant -appreciate ID input -Antibotics discontinue Diarrhea- ff electrolytes imodium x 1 Patient very motivated with alcohol cessation- per patient has a supportive PT consult for deconditioning CM consult Riley Howe MD Jun 16, 2016 11:08
--- NOTE | 2016-06-16 12:23 | HHI.IDPN ---
Subjective Subjective Remarks Notes reviewed NO fever (+) diarrhea One BC with Propionibacterium acnes No new (+) BC NO hardware Antibiotics None Past Medical History ETOH abuse Arthroscopic surgery to knee Allergies: Coded Allergies: No Known Allergies (Unverified , 06/10/16) Objective . Vital Signs Date Time Temp Pulse Resp B/P Pulse Ox O2 Delivery O2 Flow Rate FiO2 06/16/16 08:00 99.1 122 17 95/57 95 06/16/16 00:13 18 06/16/16 00:00 97.8 129 18 94/60 95 06/15/16 20:00 98.6 120 18 90/54 95 06/15/16 17:47 93 Nasal Cannula 4.00 06/15/16 16:00 95.7 121 28 99/61 98 06/15/16 13:39 95 Nasal Cannula 4.00 06/15/16 06/15/16 06/16/16 15:00 23:00 07:00 Intake Total 480 ml 420 ml 0 ml Balance 480 ml 420 ml 0 ml Intake Oral 480 ml 420 ml IV Total 0 ml 0 ml # Voids 2 3 3 # Bowel Movements 10 1 2 . Laboratory Tests Test 06/15/16 06/16/16 15:48 10:07 White Blood Count 14.7 TH/MM3 12.9 TH/MM3 Red Blood Count 3.18 MIL/MM3 2.72 MIL/MM3 Hemoglobin 10.9 GM/DL 9.5 GM/DL Hematocrit 34.0 % 29.0 % Mean Corpuscular Volume 106.8 FL 106.6 FL Mean Corpuscular Hemoglobin 34.1 PG 34.8 PG Mean Corpuscular Hemoglobin 31.9 % 32.7 % Concent Red Cell Distribution Width 15.9 % 15.6 % Platelet Count 177 TH/MM3 158 TH/MM3 Mean Platelet Volume 10.0 FL 9.8 FL Neutrophils (%) (Auto) 83.9 % Lymphocytes (%) (Auto) 7.7 % Monocytes (%) (Auto) 6.0 % Eosinophils (%) (Auto) 0.7 % Basophils (%) (Auto) 1.7 % Neutrophils # (Auto) 12.3 TH/MM3 Lymphocytes # (Auto) 1.1 TH/MM3 Monocytes # (Auto) 0.9 TH/MM3 Eosinophils # (Auto) 0.1 TH/MM3 Basophils # (Auto) 0.3 TH/MM3 CBC Comment DIFF FINAL Differential Comment Laboratory Tests Test 06/15/16 06/16/16 12:28 10:07 Sodium Level 142 MEQ/L 141 MEQ/L Potassium Level 3.5 MEQ/L 4.2 MEQ/L Chloride Level 111 MEQ/L 111 MEQ/L Carbon Dioxide Level 24.1 MEQ/L 22.6 MEQ/L Anion Gap 7 MEQ/L 7 MEQ/L Blood Urea Nitrogen LESS THAN 1 LESS THAN 1 MG/DL MG/DL Creatinine 0.53 MG/DL 0.42 MG/DL Estimat Glomerular Filtration 133 ML/MIN 174 ML/MIN Rate Random Glucose 113 MG/DL 93 MG/DL Calcium Level 6.6 MG/DL 6.9 MG/DL Protein Corrected Calcium 7.5 MG/DL 8.1 MG/DL Total Bilirubin 4.5 MG/DL 4.3 MG/DL Aspartate Amino Transf 120 U/L 111 U/L (AST/SGOT) Alanine Aminotransferase 22 U/L 18 U/L (ALT/SGPT) Alkaline Phosphatase 211 U/L 176 U/L Total Protein 5.2 GM/DL 4.8 GM/DL Albumin 1.6 GM/DL 1.4 GM/DL 25-Hydroxy Vitamin D Total 7.3 ng/ML Imaging Last Impressions Chest X-Ray 06/15/16 1259 Signed Impressions: Service Date/Time: Wednesday, June 15, 2016 13:21 - CONCLUSION: Slight worsening of right pleural effusion and right lung base consolidation, otherwise no change in left pleural effusion and probable mild case of pulmonary edema KGinger Laurent MD Abdomen Ultrasound 06/14/16 0000 Signed Impressions: Service Date/Time: Tuesday, June 14, 2016 09:13 - CONCLUSION: 1. Small volume ascites Jamaal Eastman MD Hepatobiliary Scan Nuclear Medicine 06/10/16 0000 Signed Impressions: Service Date/Time: Friday, June 10, 2016 12:50 - CONCLUSION: 1. Scintigraphic findings suggesting hepatocellular dysfunction with sluggish washout and persistent background activity. 2. Due to limited excretion, it is difficult to identify the extrahepatic biliary tree. However, activity is seen in the small bowel by 10 minutes. 3. No scintigraphic findings of acute cholecystitis. Bob Lara MD Cholangiopancreatography MRI 06/10/16 0000 Signed Impressions: Service Date/Time: Friday, June 10, 2016 12:25 - CONCLUSION: 1. Hepatosplenomegaly with significantly and inhomogeneously fatty infiltrated liver. 2. Slight ascites and bilateral pleural effusions. 3. Cholelithiasis and pericholecystic fluid and cholecystitis is not excluded. Mert Laurent MD Physical Exam GENERAL: Awake and alert, NAD SKIN: cool and dry, jaundiced, has spider angiomata in her upper chest and UE. She also has petechial rash in her lower extremity. HEENT: [place] conjunctivae. No petechia or hemorrhage. Has scleral icterus. No injection or drainage. Moist oral mucosa. NECK: Trachea midline. No JVD or lymphadenopathy. Supple, nontender, no meningeal signs. CARDIOVASCULAR: Regular rate and rhythm without murmurs, gallops, or rubs. RESPIRATORY: Clear to auscultation. Breath sounds equal bilaterally. No wheezes , rales, or rhonchi. Decreased at the bases. GASTROINTESTINAL: Abdomen mildly distended, globular, has an enlarged liver, that is tender. She is also tender in the epigastric area, no guarding or rebound. Bowel sounds are present and normoactive. MUSCULOSKELETAL: Extremities without clubbing, cyanosis, or edema. No joint tenderness, effusion, or edema noted. No calf tenderness. NEUROLOGICAL: Awake and alert. Cranial nerves II through XII intact. Five out of 5 muscle strength in all muscle groups. Normal speech. PSYCH: Calm and cooperative LINE: PIV with no evidence of infection Assessment & Plan Remarks Assessment and Plan IMPRESSION One (+) BC with propionibacterium C/W contamination - skin arianna - can be pathogenic but usually in setting where hardware present ETOH hepatitis Diarrhea, C diff negative RECOMMENDATION No need for any further Abx I will sign off Please reconsult if with any new ID issue or question Whit Rock MD Jun 16, 2016 12:23
[2016-06-16 12:46] LABS: INTERNATIONAL NORMALIZED RATIO 1.9 RATIO; PROTHROMBIN TIME - PATIENT 21.4 SEC (9.8-11.6)
[2016-06-16 15:55] LABS: GLUCOSE,PLEURAL FLUID 104 MG/DL
[2016-06-16 16:00] LABS: TOTAL PROTEIN,PLEURAL FLUID 0.5 GM/DL
--- NOTE | 2016-06-16 16:03 | RADRPT ---
EXAM DATE/TIME: 06/16/2016 15:09 [facility] COMPARISON: US GUIDED THORACENTESIS RIGHT, June 16, 2016, 14:13. CHEST SINGLE AP, June 15, 2016, 13:21. INDICATIONS : Post Thoracentesis. MEDICAL HISTORY : None. SURGICAL HISTORY : None. ENCOUNTER: Subsequent ACUITY: Subsequent PAIN SCORE: 1/10 LOCATION: Bilateral chest FINDINGS: A single AP erect expiratory view of the chest was obtained and demonstrates interval decrease in the right pleural effusion with no pneumothorax. There is a small left pleural effusion which may be sli ghtly increased from the prior study. The heart size at the upper limits of normal. The bony thorax i s intact. CONCLUSION: 1. Interval decrease in right pleural effusion with no pneumothorax. 2. Small left pleural effusion which may be slightly increased. Melo Kitchen MD on June 16, 2016 at 16:00 Board Certified Radiologist. This report was verified electronically.
--- NOTE | 2016-06-16 16:24 | RADRPT ---
EXAM DATE/TIME: 06/16/2016 14:13 [facility] COMPARISON: CHEST SINGLE AP, June 15, 2016, 13:21. CHEST SINGLE AP, June 16, 2016, 15:09. INDICATIONS : Right pleural effusion. MEDICAL HISTORY : ETOH. Abdominal pain. Nausea and vomiting. SURGICAL HISTORY : Right knee surgery. ENCOUNTER: Subsequent ACUITY: 1 week PAIN SCORE: 0/10 LOCATION: Right chest FLUID: Total volume of 800 cc of yellow/green fluid was removed. Fluid was sent to lab for ordered studies. TECHNIQUE: 1. Ultrasound guidance for thoracentesis. 2. Thoracentesis. The risks, benefits, and alternatives to ultrasound guided thoracentesis were explained to the patien t in lay simple terms, including the risk of bleeding and infection. Written and verbal informed con sent was obtained. Appropriate area for thoracentesis was marked under ultrasound guidance with the patient in the uprig ht position. Overlying skin was prepped and draped in the usual sterile fashion and with local anest hetic, a dermatotomy was made with an 11 blade scalpel. A 6 [place] thoracentesis catheter was placed in the pleural space and fluid was removed. Catheter was then removed and a sterile dressing applie d. There were no immediate complications. The patient tolerated the procedure well and the left the ultrasound suite in stable condition. Chest radiograph is to be obtained. CONCLUSION: Uncomplicated ultrasound guided thoracentesis. Qasim Osuna MD on June 16, 2016 at 16:21 Board Certified Radiologist. This report was verified electronically.
[2016-06-16 17:17] LABS: PLEURAL FLUID LYMPHS 12 %
--- NOTE | 2016-06-16 23:22 | HHI.GIFU ---
Subjective Remarks Comfortable in bed no new complaints Objective Vitals I&O Vital Signs Date Time Temp Pulse Resp B/P Pulse Ox O2 Delivery O2 Flow Rate FiO2 06/16/16 21:43 93 Nasal Cannula 3.00 06/16/16 20:00 99.4 129 19 100/64 93 06/16/16 16:00 98.7 118 18 105/66 95 06/16/16 15:45 116 16 108/67 96 06/16/16 15:30 122 20 112/66 96 06/16/16 15:15 99.1 128 20 104/68 96 06/16/16 15:14 99.1 123 24 94/62 92 06/16/16 12:00 98.2 125 19 97/58 95 06/16/16 09:25 94 Nasal Cannula 3.00 06/16/16 08:00 99.1 122 17 95/57 95 06/16/16 00:13 18 06/16/16 00:00 97.8 129 18 94/60 95 I/O 06/15/16 06/15/16 06/15/16 06/16/16 06/16/16 06/16/16 07:00 15:00 23:00 07:00 15:00 23:00 Intake Total 240 ml 480 ml 420 ml 0 ml 120 ml 240 ml Output Total 360 ml 800 ml Balance 240 ml 480 ml 420 ml 0 ml -240 ml -560 ml Intake Oral 240 ml 480 ml 420 ml 120 ml 240 ml IV Total 0 ml 0 ml 0 ml 0 ml Output Urine Total 360 ml 500 ml Stool Total 300 ml # Voids 2 2 3 3 1 # Bowel Movements 1 10 1 2 0 2 Laboratory Laboratory Tests Test 06/16/16 06/16/16 06/16/16 10:07 11:50 14:55 White Blood Count 12.9 Red Blood Count 2.72 Hemoglobin 9.5 Hematocrit 29.0 Mean Corpuscular Volume 106.6 Mean Corpuscular Hemoglobin 34.8 Mean Corpuscular Hemoglobin 32.7 Concent Red Cell Distribution Width 15.6 Platelet Count 158 Mean Platelet Volume 9.8 Sodium Level 141 Potassium Level 4.2 Chloride Level 111 Carbon Dioxide Level 22.6 Anion Gap 7 Blood Urea Nitrogen LESS THAN 1 Creatinine 0.42 Estimat Glomerular Filtration 174 Rate Random Glucose 93 Calcium Level 6.9 Protein Corrected Calcium 8.1 Total Bilirubin 4.3 Aspartate Amino Transf 111 (AST/SGOT) Alanine Aminotransferase 18 (ALT/SGPT) Alkaline Phosphatase 176 B-Type Natriuretic Peptide 181 Total Protein 4.8 Albumin 1.4 Prothrombin Time 21.4 Prothromb Time International 1.9 Ratio Pleural Fluid pH 8.0 Pleural Fluid WBC 176 Pleural Fluid RBC 17 Pleural Fluid Neutrophils 2 Pleural Fluid Lymphocytes 12 Pleural Fluid Monocytes 52 Pleural Fluid Histiocytes 15 Pleural Fluid Mesothelial 19 Cells Pleural Fluid Total Protein 0.5 Pleural Fluid LDH Pleural Fluid Glucose 104 Pleural Fluid Amylase Date/Time Procedure Status Source Growth 06/16/16 14:55 Gram Stain Received Fluid Pleural Fluid Pending 06/16/16 14:55 Body Fluid Culture Received Fluid Pleural Fluid Pending 06/16/16 14:55 Fungal Smear Received Fluid Pleural Fluid Pending 06/16/16 14:55 Fungal Culture Received Fluid Pleural Fluid Pending 06/16/16 14:55 Acid Fast Stain Received Fluid Pleural Fluid Pending 06/16/16 14:55 Mycobacterial Culture Received Fluid Pleural Fluid Pending 06/12/16 23:30 Cryptosporidium Exam - Final Complete Stool Stool NEGATIVE - NO CRYPTOSPORIDIUM ANTIGEN... 06/12/16 23:30 Giardia Antigen (AMADEO) - Final Complete Stool Stool NEGATIVE - NO GIARDIA ANTIGEN DETECTE... 06/12/16 23:30 - Final Complete Stool Stool NO ENTERIC PATHOGENS DETECTED BY PCR... Imaging Last 48 hours Impressions Thoracentesis Ultrasound 06/16/16 0000 Signed Impressions: Service Date/Time: May 14:13 - CONCLUSION: Uncomplicated ultrasound guided thoracentesis. Qasim Osuna MD Chest X-Ray 06/16/16 0000 Signed Impressions: Service Date/Time: May 15:09 - CONCLUSION: 1. Interval decrease in right pleural effusion with no pneumothorax. 2. Small left pleural effusion which may be slightly increased. Melo Kitchen MD Chest X-Ray 06/15/16 1259 Signed Impressions: Service Date/Time: Wednesday, June 15, 2016 13:21 - CONCLUSION: Slight worsening of right pleural effusion and right lung base consolidation, otherwise no change in left pleural effusion and probable mild case of pulmonary edema K. Antwon Laurent MD Physical Exam HEENT: Normocephalic; atraumatic; no jaundice. CHEST: CTA CARDIAC: RRR ABDOMEN: Soft, nondistended, nontender; hepatosplenomegaly; bowel sounds are present in all four quadrants. EXTREMITIES: No clubbing, cyanosis, or edema. SKIN: Normal; no rash; no jaundice. NEUROLOGIST: No focal deficits; alert and oriented times three. Assessment and Plan Plan ASSESSMENT: - Alcoholic hepatitis. DF 24.68. Drinks 1 pint ETOH a day x 3-[address] with enlarged fatty liver, mild splenomegaly, small to moderate amount of ascites. Not a candidate for steroids. Pentoxifylline. - Elevated LFTs, likely related to above, but does have cholelithiasis. HIDA ()------> 1. Scintigraphic findings suggesting hepatocellular dysfunction with sluggish washout and persistent background activity. 2. Due to limited excretion, it is difficult to identify the extrahepatic biliary tree. However, activity is seen in the small bowel by 10 minutes. 3. No scintigraphic findings of acute cholecystitis. MRCP (06/10/16)-----> 1. Hepatosplenomegaly with significantly and inhomogeneously fatty infiltrated liver. 2. Slight ascites and bilateral pleural effusions. 3. Cholelithiasis and pericholecystic fluid and cholecystitis is not excluded. Liver workup- Hepatitis panel negative PEDRO negative, AMA pending, ASMA pending, AFP 3.4, Ceruloplasmin pending, Alpha 1 antitrypsin pending. LFTs slowly improving. - N/V, Abdominal pain. CT Scan abdomen and pelvis (06/10/16)--> enlarged fatty liver, mild splenomegaly, small to moderate amount of ascites within the abdomen and pelivs, small right pleural effusion, small hiatal hernia, cholelithiasis. Denies any abdominal pain. - Cholelithiasis. MRCP without biliary obstruction, HIDA with hepatocellular dz. Not having abdominal pain. - Sepsis Criteria, Leukocytosis, Lactic acidosis. Abn. U/A, Urine Cx pending. Nasal washing (-) for FLU A/B, BCx pending. CXR okay. HIDA okay. - Coagulopathy. PT 17.1, INR 1.5, no active bleeding. - Diarrhea, CDiff negative. Awaiting stool cultures. Xifaxan, Flagyl, Levaquin. - Ascites, mild to mod. - Skin Rash. Per primary - Cough, SOB, small pleural effusion. Chest X-Ray (06/10/16)----> No acute disease. Improved. - Multiple electrolyte abnormalities. Per CCM - Abnormal U/A. Cx 50-100,000 CFU/mL mixed gram positive. S/P Zosyn. PLAN: - Regular Diet -Stool studies negative for C. difficile - Cont. Pentoxifylline - Cont. PPI - Cont. Zofran prn -So far liver workup is unremarkable - Monitor labs - Supportive care - Complete ETOH cessation- d/w patient -Not much to add from a GI standpoint we will sign off Patient follow-up with GI post discharge Axel Acosta MD Jun 16, 2016 23:22
[2016-06-17] VITALS (8 sets, daily range): BP systolic 93–104; BP diastolic 53–67; PULSE 63–129; RESP 18–19; TEMP 97.3–99.6; O2SAT 91–96
[2016-06-17] MEDS: CHLORHEXIDINE GLUCONATE 2 % 1 PACK (2 CLOTHS) TOP SCH ×2 (03:14→20:44)
[2016-06-17] MEDS: INSULIN NovoLIN REGULAR SUPPLEMENTAL SCALE SQ SCH ×5 (06:00→20:44)
[2016-06-17] MEDS: PENTOXIFYLLINE 400 MG CONTROLLED RELEASE TAB PO SCH ×3 (06:10→20:27)
[2016-06-17] MEDS: LORazepam 0.5 MG TAB PO SCH ×3 (06:10→20:28)
[2016-06-17] MEDS: MORPHINE SULFATE 4 MG/ML INJ IV PUSH PRN ×2 (06:49→20:25)
--- NOTE | 2016-06-17 07:27 | MB ---
cc: CHRISTA RICHARDSON ALFEA DATE OF CONSULTATION: 06/16/[address] Howe REASON FOR CONSULTATION Shortness of breath. HISTORY OF PRESENT ILLNESS Ms. Woo is a 31-year-old female with history of alcohol use. She drinks half a pint of vodka every day. She developed some rash on her body which was initially on the arms but then it spread to the whole body with itching and she felt worse. She does not know if she had any insect bite but she says there are a lot of sand fleas in her house and she allergic to all insect bites. She tried some Benadryl which did not help her. Due to worsening of her symptoms she came to the hospital. She had a work-up done. She was found to have alcoholic hepatitis. She was also found to have pleural effusion. She had a right thoracentesis done, 700 cc of fluid was removed. She feels significantly better after removal of the fluid. The pleural fluid is transudate in nature. She also noted some distention in her abdomen. She has diuresed well after she came to the hospital. Denies any abdominal pain. PAST MEDICAL HISTORY History of alcohol use. MEDICATIONS She is currently takin. Protonix 40 mg a day. 2. Ativan 0.5 mg. 3. Potassium 30 mEq a day. 4. Rifaximine 550 mg twice a day. 5. K-Phos 500 mg a day. 6. Temazepam p.r.n. 7. Trental 400 mg q.8h. 8. Folic acid 1 mg a day. 9. Thiamine 100 mg a day. ALLERGIES No known drug allergies. SOCIAL HISTORY She is for seven years, has history of smoking off and on, drinks half a pint of vodka a day. FAMILY HISTORY She has one child. She does not work. REVIEW OF SYSTEMS Normally she is up, around and active. She is feeling short of breath lately. She uses an inhaler off and on but has not been diagnosed with asthma. PHYSICAL EXAMINATION GENERAL: A well-developed, well-nourished female not in acute distress. VITAL SIGNS: Blood pressure 105/66, heart rate 118, respiration 18, temperature 98.7. HEENT: Pupils are equal, round and reactive to light. Oral mucosa and nasal mucosa normal. NECK: Supple. JVP not raised. CHEST: Decreased breath sounds at both bases. CARDIOVASCULAR: S1, S2 normal. ABDOMEN: Mildly distended, nontender. Bowel sounds are present. EXTREMITIES: She has a skin rash and multiple skin lesions. BRASS RECLAIMER: She is alert and oriented. No focal deficit. LABORATORY DATA WBC count 12.9, hemoglobin 9.5, hematocrit 29.0, MCV 106, platelet count 106. Sodium 141, potassium 4.2, chloride 111, CO2 22, BUN less than 1, creatinine 0.42, calcium 6.9. Blood gas pH 7.46, PCO2 28, PO2 78 on 4 liters nasal cannula. IMPRESSION 1. Shortness of breath secondary to pleural effusions. She feels significantly better after thoracentesis. The pleural effusion is transudate and most likely related to her liver problem. 2. Alcoholic hepatitis. 3. Insect bite. 4. Electrolyte imbalance. 5. Alcohol use. 6. Nicotine use. PLAN I will monitor her pleural effusion. She is likely to develop pleural effusion again. Will control her fluid balance and electrolytes. If she has significant repeat pleural effusion she will need thoracentesis. I advised her strongly to quit smoking. A GI work-up is under way. Further treatment will depend on her course in the hospital. Thank you Dr. Howe for this consult. MD TOMMY Diane/BT /6:56 PM /7:02 AM LARRY
--- NOTE | 2016-06-17 09:08 | HHI.PR ---
Subjective Remarks patient feeling better, no nausea v omiting or abdominal pain po good no nausea or vomiting Objective Vitals Vital Signs Date Time Temp Pulse Resp B/P Pulse Ox O2 Delivery O2 Flow Rate FiO2 06/17/16 08:26 99.2 122 19 99/60 95 06/17/16 06:00 129 104/61 06/17/16 04:00 99.6 63 18 93/53 93 06/17/16 00:00 98.8 127 19 97/62 91 06/16/16 21:43 93 Nasal Cannula 3.00 06/16/16 20:00 99.4 129 19 100/64 93 06/16/16 16:00 98.7 118 18 105/66 95 06/16/16 15:45 116 16 108/67 96 06/16/16 15:30 122 20 112/66 96 06/16/16 15:15 99.1 128 20 104/68 96 06/16/16 15:14 99.1 123 24 94/62 92 06/16/16 12:00 98.2 125 19 97/58 95 06/16/16 09:25 94 Nasal Cannula 3.00 I/O 06/16/16 06/16/16 06/16/16 06/17/16 06/17/16 06/17/16 07:00 15:00 23:00 07:00 15:00 23:00 Intake Total 0 ml 120 ml 240 ml 240 ml 120 ml Output Total 360 ml 800 ml Balance 0 ml -240 ml -560 ml 240 ml 120 ml Intake Oral 120 ml 240 ml 240 ml 120 ml IV Total 0 ml 0 ml Output Urine Total 360 ml 500 ml Stool Total 300 ml # Voids 3 1 2 # Bowel Movements 2 0 2 2 Result Diagram: 06/16/16 1007 06/16/16 1007 Imaging Last Impressions Thoracentesis Ultrasound 06/16/16 0000 Signed Impressions: Service Date/Time: May 14:13 - CONCLUSION: Uncomplicated ultrasound guided thoracentesis. Qasim Osuna MD Chest X-Ray 06/16/16 0000 Signed Impressions: Service Date/Time: May 15:09 - CONCLUSION: 1. Interval decrease in right pleural effusion with no pneumothorax. 2. Small left pleural effusion which may be slightly increased. Melo Kitchen MD Abdomen Ultrasound 06/14/16 0000 Signed Impressions: Service Date/Time: Tuesday, June 14, 2016 09:13 - CONCLUSION: 1. Small volume ascites Jamaal Eastman MD Hepatobiliary Scan Nuclear Medicine 06/10/16 0000 Signed Impressions: Service Date/Time: Friday, June 10, 2016 12:50 - CONCLUSION: 1. Scintigraphic findings suggesting hepatocellular dysfunction with sluggish washout and persistent background activity. 2. Due to limited excretion, it is difficult to identify the extrahepatic biliary tree. However, activity is seen in the small bowel by 10 minutes. 3. No scintigraphic findings of acute cholecystitis. Bob Lara MD Cholangiopancreatography MRI 06/10/16 0000 Signed Impressions: Service Date/Time: Friday, June 10, 2016 12:25 - CONCLUSION: 1. Hepatosplenomegaly with significantly and inhomogeneously fatty infiltrated liver. 2. Slight ascites and bilateral pleural effusions. 3. Cholelithiasis and pericholecystic fluid and cholecystitis is not excluded. Mert Laurent MD Objective Remarks awake and alert, oriented x 3 + icteresia no nuchal rigidity lungs decrease breath sounds- right regular rhythm, abdomen- soft, + fluid wave, no guarding, feel more flabby, more fluid wave extremities no edema neuro exam- unremarkable Procedures 06/16- thoracentesis 500 cc out- transudate A/P Assessment and Plan Multiple electrolyte abnormalities- Hypokalemia, Hypomagnesemia, Hypophosphatemia, hypocalcemia Replace and monitor Monitor PO food intake -improved Pleural Effusion right- S/P thoracentesis- transudate- likely from liver cirrhosis check ECHO- ? EF as etio for effusion ? ETOH related Gram + bacteremia contaminant -appreciate ID input -Antibotics discontinue Alcohol hepatitis Ascites on exam- US shows minimal fluid ff LFTS- belly feels bigger- get another US GI ff- work up in progress- appreciate recommendations will recheck abdomen for increase ascites Vomiting- improved Follow clinically- on PPI PRN zofran DTs (delirium tremens) SIRS- Thiamine Folic Acid continue Ativan- decrease to bid reinforced cessation Patient very motivated with alcohol cessation- per patient has a supportive PT consult for deconditioning CM consult Riley Howe MD Jun 17, 2016 09:08
[2016-06-17] MEDS: RIFAXIMIN 550 MG TAB PO SCH ×2 (09:13→20:27)
[2016-06-17] MEDS: THIAMINE HCL 100 MG TAB PO SCH (09:13)
[2016-06-17] MEDS: POTASSIUM CHLORIDE 10 MEQ CONTROLLED RELEASE TAB PO SCH ×2 (09:13→20:27)
[2016-06-17] MEDS: PANTOPRAZOLE SOD 40 MG DELAYED RELEASE TAB PO SCH (09:13)
[2016-06-17] MEDS: POTASSIUM PHOSPHATE MONOBASIC 500 MG TAB PO SCH (09:13)
[2016-06-17] MEDS: MULTIVITAMIN TAB PO SCH (09:13)
[2016-06-17] MEDS: SODIUM CHLORIDE 0.9% FLUSH 10 ML FLUSH IV FLUSH SCH ×2 (09:14→20:27)
[2016-06-17] MEDS: CALCIUM CARBONATE 1.25 GM (CA 500 MG) TAB PO SCH ×2 (09:14→20:27)
[2016-06-17] MEDS: FOLIC ACID 1 MG TAB PO SCH (09:14)
[2016-06-17] MEDS: MAGNESIUM OXIDE 400 MG TAB PO SCH ×2 (09:14→20:27)
--- NOTE | 2016-06-17 12:18 | RADRPT ---
EXAM DATE/TIME: 06/17/2016 10:00 [facility] COMPARISON: US ABDOMEN - LOWER LIMITED, June 14, 2016, 9:13. INDICATIONS : Ascites. MEDICAL HISTORY : Abdominal pain. Pruritis. Anxiety. SURGICAL HISTORY : Right knee repair. ENCOUNTER: Initial ACUITY: 1 day PAIN SCORE: 0/10 LOCATION: Abdomen. AREA EVALUATED: Abdominal quadrants. FINDINGS: Imaging of the abdomen and pelvis was performed to evaluate for ascites for possible paracentesis. CONCLUSION: There is not enough fluid for safe paracentesis.. Harish Chaudhary MD FACR on June 17, 2016 at 12:16 Board Certified Radiologist. This report was verified electronically.
--- NOTE | 2016-06-17 16:09 | EC ---
Study Study Date:06/17/2016 STUDY CONCLUSIONS SUMMARY - Left ventricle: The cavity size was normal. Wall thickness was normal. Systolic function was normal. The estimated ejection fraction was 60%. Wall motion was normal; there were no regional wall motion abnormalities. - Mitral valve: Mild regurgitation. - Left atrium: The atrium was mildly dilated. - Tricuspid valve: Mild regurgitation. - Pulmonary arteries: Systolic pressure was mildly increased. If LV function is below 40, please consider prescribing an ACEI or ARB or document rationale for non-use. PROCEDURE DATA STUDY STATUS: Elective. Procedure: Transthoracic echocardiography. Image quality was good. Scanning was performed from the parasternal, apical, and subcostal acoustic windows. Study completion: The patient tolerated the procedure well. Transthoracic echocardiography. M-mode, complete 2D, complete spectral Doppler, and color Doppler. Height: Height: 70in. Weight: Weight: 160.7lb. Body mass index: BMI: 23.1kg/m^2. Body surface area: BSA: 1.9m^2. Patient status: Inpatient. CARDIAC ANATOMY LEFT VENTRICLE: The cavity size was normal. Wall thickness was normal. Systolic function was normal. The estimated ejection fraction was 60%. Wall motion was normal; there were no regional wall motion abnormalities. AORTIC VALVE: Trileaflet; normal thickness leaflets. Doppler: Transvalvular velocity was within the normal range. There was no stenosis. No regurgitation. Valve area: 2.31cm^2 (Vmax). Indexed valve area: 1.22cm^2/m^2 (Vmax). AORTA: Aortic root: The aortic root was normal in size. MITRAL VALVE: Structurally normal valve. Doppler: Transvalvular velocity was within the normal range. There was no evidence for stenosis. Mild regurgitation. Peak gradient: 8mm Hg (D). LEFT ATRIUM: The atrium was mildly dilated. RIGHT VENTRICLE: The cavity size was normal. Wall thickness was normal. PULMONIC VALVE: Doppler: Transvalvular velocity was within the normal range. There was no evidence for stenosis. No regurgitation. TRICUSPID VALVE: Structurally normal valve. Doppler: Transvalvular velocity was within the normal range. Mild regurgitation. PULMONARY ARTERY: The main pulmonary artery was normal-sized. Systolic pressure was mildly increased. RIGHT ATRIUM: The atrium was normal in size. PERICARDIUM: There was no pericardial effusion. SYSTEMIC VEINS: Inferior vena cava: The vessel was normal in size. Patient weight: 160.7lb _Ejection fraction:_ 65-75% _Fractional shortening:_ 32% up to 5Kg 5-11.5Kg 11.6-22.9Kg 23-45Kg 45-57Kg Aortic Root 7-13 <17 13-22 17-27 17-27 LA diam 6-13 <23 24-38 33-47 37-40 RVID 10-17 7-15 7-15 7-18 8-17 LVIDd 12-22 <32 24-38 33-47 37-40 LVPW 2-4 3-6 5-7 6-8 7-8 IVS 2-4 3-6 5-7 6-8 7-8 BASIC MEASUREMENTS ADULT NORMAL Left ventricle LV internal dimension, ED, chordal 47.2 mm 43-52 level, PLAX LV internal dimension, ES, chordal 33.3 mm 23-38 level, PLAX Fractional shortening, chordal level, *29 % >29 PLAX LV posterior wall thickness, ED 9.04 mm IVS/LVPW ratio, ED 0.99 <1.3 Ventricular septum Septal thickness, ED 8.99 mm Aortic valve Leaflet separation 18 mm 15-26 BASIC MEASUREMENTS ADULT NORMAL Aortic valve Leaflet separation 18 mm 15-26 Aorta Root diameter, ED 27 mm 20-37 Left atrium Anterior-posterior dimension, ES *44 mm 19-40 Anterior-posterior dimension index, ES *2.32 cm/m^2 <2.2 LA/aortic root ratio 1.63 DOPPLER MEASUREMENTS ADULT NORMAL Main pulmonary artery Pressure, S *31 mm Hg =30 Aortic valve Peak velocity, S 155 cm/s Valve area, Vmax 2.31 cm^2 Valve area index, Vmax 1.22 cm^2/m^2 Mitral valve Peak E-wave velocity 138 cm/s Peak A-wave velocity 133 cm/s Deceleration time 153 ms 150-230 Peak gradient, D 8 mm Hg Peak E/A ratio 1 Maximal regurgitant velocity 481 cm/s Tricuspid valve Regurgitant peak velocity 274 cm/s Peak RV-RA gradient, S 30 mm Hg Systemic veins Estimated CVP 10 mm Hg Right ventricle RV pressure, S *40 mm Hg <30 Pulmonic valve Peak velocity, S 153 cm/s LEGEND: Mean values are shown as u=mean value. Asterisk (*) zavala values outside specified normal range. Prepared and signed by Papa Bass [id number]
--- NOTE | 2016-06-17 19:05 | HHI.PR ---
Subjective Remarks 31 YOWF with ETOH use, sob, pl eff Feels better less sob no CP Objective Vital Signs Vital Signs Date Time Temp Pulse Resp B/P Pulse Ox O2 Delivery O2 Flow Rate FiO2 06/17/16 16:00 98.4 111 19 97/54 96 06/17/16 13:27 96 Nasal Cannula 3.00 06/17/16 12:00 97.3 120 18 96/65 95 06/17/16 08:26 99.2 122 19 99/60 95 06/17/16 06:00 129 104/61 06/17/16 04:00 99.6 63 18 93/53 93 06/17/16 00:00 98.8 127 19 97/62 91 06/16/16 21:43 93 Nasal Cannula 3.00 06/16/16 20:00 99.4 129 19 100/64 93 I/O 06/16/16 06/16/16 06/16/16 06/17/16 06/17/16 06/17/16 07:00 15:00 23:00 07:00 15:00 23:00 Intake Total 0 ml 120 ml 240 ml 240 ml 120 ml Output Total 360 ml 800 ml Balance 0 ml -240 ml -560 ml 240 ml 120 ml Intake Oral 120 ml 240 ml 240 ml 120 ml IV Total 0 ml 0 ml 0 ml Output Urine Total 360 ml 500 ml Stool Total 300 ml # Voids 3 1 2 # Bowel Movements 2 0 2 2 Result Diagram: 06/16/16 1007 06/16/16 1007 Objective Remarks GENERAL: MBMN WF,NAD SKIN: Warm and dry. HEAD: Normocephalic. EYES: No scleral icterus. No injection or drainage. NECK: Supple, trachea midline. No JVD or lymphadenopathy. CARDIOVASCULAR: Regular rate and rhythm without murmurs, gallops, or rubs. RESPIRATORY: Breath sounds equal bilaterally. No accessory muscle use. GASTROINTESTINAL: Abdomen soft, non-tender, nondistended. MUSCULOSKELETAL: No cyanosis, or edema. BACK: Nontender without obvious deformity. No CVA tenderness. A/P Assessment and Plan Mild dysnoea Pleural effusion, s/p TC Alcohlic hepatitis ETOH use Nicotine use PLAN: Supplement [address] fluid results GI YOUSIF underway. Tomi Mckeon MD Jun 17, 2016 19:05
[2016-06-18] VITALS (7 sets, daily range): BP systolic 92–107; BP diastolic 57–69; PULSE 122–139; RESP 16–18; TEMP 98.3–99.8; O2SAT 90–92
[2016-06-18] MEDS: INSULIN NovoLIN REGULAR SUPPLEMENTAL SCALE SQ SCH ×4 (06:00→21:54)
[2016-06-18] MEDS: PENTOXIFYLLINE 400 MG CONTROLLED RELEASE TAB PO SCH ×3 (06:11→21:04)
[2016-06-18] MEDS: LORazepam 0.5 MG TAB PO SCH ×3 (06:11→21:04)
[2016-06-18] MEDS: MORPHINE SULFATE 4 MG/ML INJ IV PUSH PRN ×4 (06:12→22:12)
[2016-06-18] MEDS: POTASSIUM PHOSPHATE MONOBASIC 500 MG TAB PO SCH (08:52)
[2016-06-18] MEDS: RIFAXIMIN 550 MG TAB PO SCH ×2 (08:52→21:04)
[2016-06-18] MEDS: THIAMINE HCL 100 MG TAB PO SCH (08:52)
[2016-06-18] MEDS: SODIUM CHLORIDE 0.9% FLUSH 10 ML FLUSH IV FLUSH SCH ×2 (08:52→21:05)
[2016-06-18] MEDS: MAGNESIUM OXIDE 400 MG TAB PO SCH ×2 (08:53→21:04)
[2016-06-18] MEDS: CALCIUM CARBONATE 1.25 GM (CA 500 MG) TAB PO SCH ×2 (08:53→21:04)
[2016-06-18] MEDS: POTASSIUM CHLORIDE 10 MEQ CONTROLLED RELEASE TAB PO SCH ×2 (08:53→21:04)
[2016-06-18] MEDS: MULTIVITAMIN TAB PO SCH (08:53)
[2016-06-18] MEDS: FOLIC ACID 1 MG TAB PO SCH (08:53)
[2016-06-18] MEDS: PANTOPRAZOLE SOD 40 MG DELAYED RELEASE TAB PO SCH (08:53)
--- NOTE | 2016-06-18 09:15 | HHI.PR ---
Subjective Remarks This is a pleasant 31 y/o Female, came to ER with SOB, active Drinker of Vodka on daily basis, CT abdomen and Pelvis has fatty liver, mild splenomegaly, small to moderate ascites Cholelithiasis, Small hiatal hernia, received Zosyn in ER, seen in her bedroom in the presence at all times of female nurses Miss Chaney and Charge Nurse, complaint of Shortness of breath probable pleural effusion has bilateral inspiratory crackles specially on right lung, to follow with CXR, added Bronchodilator, Mucolytic and Incentive spirometry. Patient seen in her bedroom stable discussed with nurse Miss Chaney the patient developed Shortness of breath, mild inspiratory crackles more on the right base, given Bronchodilator and Mucolytics if no improvements will call development disability specialist. No nausea, vomit or diarrhea. Objective Vital Signs Date Time Temp Pulse Resp B/P Pulse Ox O2 Delivery O2 Flow Rate FiO2 06/18/16 08:00 98.3 122 16 94/57 90 06/18/16 00:00 99.8 127 18 104/65 90 06/17/16 20:00 98.1 119 18 99/67 96 06/17/16 16:00 98.4 111 19 97/54 96 06/17/16 13:27 96 Nasal Cannula 3.00 06/17/16 12:00 97.3 120 18 96/65 95 I/O 06/17/16 06/17/16 06/17/16 06/18/16 06/18/16 06/18/16 06:59 14:59 22:59 06:59 14:59 22:59 Intake Total 240 ml 120 ml 240 ml 0 ml Balance 240 ml 120 ml 240 ml 0 ml Intake Oral 240 ml 120 ml 240 ml 0 ml IV Total 0 ml 0 ml # Voids 2 3 1 # Bowel Movements 2 1 Result Diagram: 06/16/16 1007 06/16/16 1007 Imaging Last Impressions Abdomen Ultrasound 06/17/16 0000 Signed Impressions: Service Date/Time: Friday, June 17, 2016 10:00 - CONCLUSION: There is not enough fluid for safe paracentesis.. Harish Chaudhary MD FACR Thoracentesis Ultrasound 06/16/16 0000 Signed Impressions: Service Date/Time: May 14:13 - CONCLUSION: Uncomplicated ultrasound guided thoracentesis. Qasim Osuna MD Chest X-Ray 06/16/16 0000 Signed Impressions: Service Date/Time: May 15:09 - CONCLUSION: 1. Interval decrease in right pleural effusion with no pneumothorax. 2. Small left pleural effusion which may be slightly increased. Melo Kitchen MD Hepatobiliary Scan Nuclear Medicine 06/10/16 0000 Signed Impressions: Service Date/Time: Friday, June 10, 2016 12:50 - CONCLUSION: 1. Scintigraphic findings suggesting hepatocellular dysfunction with sluggish washout and persistent background activity. 2. Due to limited excretion, it is difficult to identify the extrahepatic biliary tree. However, activity is seen in the small bowel by 10 minutes. 3. No scintigraphic findings of acute cholecystitis. Bob Lara MD Cholangiopancreatography MRI 06/10/16 0000 Signed Impressions: Service Date/Time: Friday, June 10, 2016 12:25 - CONCLUSION: 1. Hepatosplenomegaly with significantly and inhomogeneously fatty infiltrated liver. 2. Slight ascites and bilateral pleural effusions. 3. Cholelithiasis and pericholecystic fluid and cholecystitis is not excluded. Mert Laurent MD Procedures 06/16- thoracentesis 500 cc out- transudate Other Results Laboratory Tests Test 06/10/16 06/14/16 06/15/16 06/15/16 16:35 11:55 12:28 13:43 Mitochondria M2 Antibody LESS THAN 20.0 U Anti-Smooth Muscle Antibody Negative [id number] 279 mg/dL Ceruloplasmin 24 mg/dL Phosphorus Level 0.9 MG/DL Magnesium Level 1.6 MG/DL 25-Hydroxy Vitamin D Total 7.3 ng/ML Blood Gas Puncture Site RT RADIAL Blood Gas Patient Temperature 98.6 Blood Gas HCO3 20 mmol/L Blood Gas Base Excess -3.6 mmol/L Blood Gas Oxygen Saturation 93 % Arterial Blood pH 7.46 Arterial Blood Partial 28 mmHg Pressure CO2 Arterial Blood Partial 78 mmHg Pressure O2 Arterial Blood Oxygen Content 13.5 Vol % Arterial Blood 1.6 % Carboxyhemoglobin Arterial Blood Methemoglobin 0.7 % Blood Gas Hemoglobin 10.2 G/DL Oxygen Delivery Device NASAL CANNULA Blood Gas Liter Flow 4 L/M Test 06/15/16 06/16/16 06/16/16 06/16/16 15:48 10:07 11:50 14:55 Neutrophils (%) (Auto) 83.9 % Lymphocytes (%) (Auto) 7.7 % Monocytes (%) (Auto) 6.0 % Eosinophils (%) (Auto) 0.7 % Basophils (%) (Auto) 1.7 % Neutrophils # (Auto) 12.3 TH/MM3 Lymphocytes # (Auto) 1.1 TH/MM3 Monocytes # (Auto) 0.9 TH/MM3 Eosinophils # (Auto) 0.1 TH/MM3 Basophils # (Auto) 0.3 TH/MM3 CBC Comment DIFF FINAL Differential Comment White Blood Count 12.9 TH/MM3 Red Blood Count 2.72 MIL/MM3 Hemoglobin 9.5 GM/DL Hematocrit 29.0 % Mean Corpuscular Volume 106.6 FL Mean Corpuscular Hemoglobin 34.8 PG Mean Corpuscular Hemoglobin 32.7 % Concent Red Cell Distribution Width 15.6 % Platelet Count 158 TH/MM3 Mean Platelet Volume 9.8 FL Sodium Level 141 MEQ/L Potassium Level 4.2 MEQ/L Chloride Level 111 MEQ/L Carbon Dioxide Level 22.6 MEQ/L Anion Gap 7 MEQ/L Blood Urea Nitrogen LESS THAN 1 MG/DL Creatinine 0.42 MG/DL Estimat Glomerular Filtration 174 ML/MIN Rate Random Glucose 93 MG/DL Calcium Level 6.9 MG/DL Protein Corrected Calcium 8.1 MG/DL Total Bilirubin 4.3 MG/DL Aspartate Amino Transf 111 U/L (AST/SGOT) Alanine Aminotransferase 18 U/L (ALT/SGPT) Alkaline Phosphatase 176 U/L B-Type Natriuretic Peptide 181 PG/ML Total Protein 4.8 GM/DL Albumin 1.4 GM/DL Prothrombin Time 21.4 SEC Prothromb Time International 1.9 RATIO Ratio Pleural Fluid pH 8.0 Pleural Fluid WBC 176 /MM3 Pleural Fluid RBC 17 /MM3 Pleural Fluid Neutrophils 2 % Pleural Fluid Lymphocytes 12 % Pleural Fluid Monocytes 52 % Pleural Fluid Histiocytes 15 % Pleural Fluid Mesothelial 19 % Cells Pleural Fluid Total Protein 0.5 GM/DL Pleural Fluid LDH 74 U/L Pleural Fluid Glucose 104 MG/DL Pleural Fluid Amylase LESS THAN 2 U/L Objective Remarks GENERAL: Mild respiratory distress. SKIN: Warm and dry. HEAD: Atraumatic. Normocephalic. EYES: Pupils equal and round. No scleral icterus. No injection or drainage. ENT: No nasal bleeding or discharge. Mucous membranes pink and moist. NECK: Trachea midline. No JVD. CARDIOVASCULAR: Regular rate and rhythm. RESPIRATORY: Decreased breath sounds bilateral. inspiratory crackles more on right base. GASTROINTESTINAL: Abdomen soft, non-tender, moderate distension. MUSCULOSKELETAL: Extremities without clubbing, cyanosis, pedal edema. NEUROLOGICAL: Awake and alert. No obvious cranial nerve deficits. Motor grossly within normal limits. Five out of 5 muscle strength in the arms and legs. Normal speech. PSYCHIATRIC: Appropriate mood and affect; insight and judgment normal Medications and IVs Current Medications Medications (Trade) Dose Ordered Sig/Deni Route Start Time Stop Time Status Last Admin (TRENtal SR) 400 mg Q8HR PO 06/10/16 14:00 06/18/16 06:11 Miscellaneous Information 1 [id number] XX 06/10/16 12:30 (Chlorhexidine 2% Cloth) Taper DAILY@04 TOP 06/11/16 04:00 06/07/17 03:59 06/10/16 19:57 (Chlorhexidine 2% Cloth) 3 pack UNSCH PRN TOP 06/10/16 12:30 06/10/16 19:57 (Vitamin B1) 100 mg DAILY PO 06/10/16 12:30 06/18/16 08:52 (Folate) 1 mg DAILY PO 06/10/16 12:30 06/18/16 08:53 (Theragran) 1 tab DAILY PO 06/10/16 12:30 06/18/16 08:53 (D50w (Vial) Inj) 25 ml UNSCH PRN IV PUSH 06/10/16 13:00 (Glucagon Inj) 1 mg UNSCH PRN OTHER 06/10/16 13:00 (NovoLIN R SUPPLEMENTAL SCALE) 1 Q6HR SQ 06/10/16 13:00 06/13/16 18:30 (Morphine Inj) 1 mg Q4H PRN IV PUSH 06/10/16 16:45 06/18/16 06:12 (NS Flush) 2 ml UNSCH PRN IV FLUSH 06/10/16 18:45 (NS Flush) 2 ml BID IV FLUSH 06/10/16 21:00 06/18/16 08:52 (Romazicon Inj) 0.2 mg Q1M PRN IV PUSH 06/10/16 18:45 (K-Phos) 500 mg DAILY PO 06/12/16 09:00 06/18/16 08:52 (Oscal) 500 mg BID PO 06/12/16 09:00 06/18/16 08:53 (Mag-Ox) 400 mg BID PO 06/12/16 09:00 06/18/16 08:53 (Xifaxan) 550 mg BID PO 06/12/16 21:00 06/18/16 08:52 (KCl) 30 meq Q12HR PO 06/13/16 09:00 06/18/16 08:53 (Protonix) 40 mg DAILY PO 06/16/16 09:00 06/18/16 08:53 (Ativan) 0.5 mg Q8HR PO 06/15/16 16:15 06/18/16 06:11 A/P Assessment and Plan 1. Electrolyte derangement status post replacement, follow BMP, Phosphorus and mag level. 2. Right pleural effusion status post Thoracentesis, transudate likely from liver cirrhosis. echo EF 60%. 3. Gram + bacteremia contaminant, ID following Antibiotics discontinued. 4. Alcoholic Hepatitis Ascites on Exam US shows minimal fluid, CIWA protocol. 5. SIRS no need for antibiotics as per ID specialist. CXR no new changes. continue respiratory management pheresis specialist following. PT consult for deconditioning CM consult Discharge Planning Expected in one to two days. Tai Huerta MD Jun 18, 2016 09:15
[2016-06-18] MEDS: guaiFENesin E.R. 600 MG TAB PO SCH ×2 (09:49→21:04)
--- NOTE | 2016-06-18 11:08 | RADRPT ---
EXAM DATE/TIME: 06/18/2016 10:37 [facility] COMPARISON: CHEST PA & LAT, June 14, 2016, 10:02. INDICATIONS : Evaluate for pleural effusion. MEDICAL HISTORY : None. SURGICAL HISTORY : None. ENCOUNTER: Subsequent ACUITY: 1 week PAIN SCORE: 0/10 LOCATION: chest FINDINGS: Patchy bilateral lower lobe airspace disease and small pleural effusions identified. These are noted best on the lateral view. There are shallow lung volumes. CONCLUSION: No significant change has occurred. Pedro Pablo Rose MD on June 18, 2016 at 11:06 Board Certified Radiologist. This report was verified electronically.
[2016-06-18] MEDS: RESP: ALBUTEROL 2.5 MG/IPRATROPIUM 0.5 MG NEB (SCH) NEB ×3 (12:43→20:00)
[2016-06-18 13:28] LABS: ANION GAP 10 MEQ/L (5-15); BICARBONATE 23.4 MEQ/L (21.0-32.0); BLOOD UREA NITROGEN LESS THAN 1 MG/DL (7-18); CHLORIDE 104 MEQ/L (98-107); GLOMERULAR FILTRATION RATE 130 ML/MIN (>89); MAGNESIUM 1.8 MG/DL (1.5-2.5); POTASSIUM 4.2 MEQ/L (3.5-5.1); SODIUM (NA) 137 MEQ/L (136-145)
--- NOTE | 2016-06-18 18:18 | HHI.PR ---
Subjective Remarks 31 YOWF with ETOH use, sob, pl eff Feels better less sob no CP Ambulates Objective Vital Signs Vital Signs Date Time Temp Pulse Resp B/P Pulse Ox O2 Delivery O2 Flow Rate FiO2 06/18/16 16:00 99.5 137 18 93/60 90 06/18/16 12:47 92 Nasal Cannula 3.00 06/18/16 12:00 99.2 126 18 92/59 90 06/18/16 09:00 Nasal Cannula 3.00 06/18/16 08:00 98.3 122 16 94/57 90 06/18/16 00:00 99.8 127 18 104/65 90 06/17/16 20:00 98.1 119 18 99/67 96 I/O 06/17/16 06/17/16 06/17/16 06/18/16 06/18/16 06/18/16 07:00 15:00 23:00 07:00 15:00 23:00 Intake Total 240 ml 120 ml 240 ml 0 ml 1200 ml Balance 240 ml 120 ml 240 ml 0 ml 1200 ml Intake Oral 240 ml 120 ml 240 ml 0 ml 1200 ml IV Total 0 ml 0 ml # Voids 2 3 1 4 # Bowel Movements 2 1 3 Result Diagram: 06/16/16 1007 06/18/16 1216 Objective Remarks GENERAL: MBMN WF,NAD SKIN: Warm and dry. HEAD: Normocephalic. EYES: No scleral icterus. No injection or drainage. NECK: Supple, trachea midline. No JVD or lymphadenopathy. CARDIOVASCULAR: Regular rate and rhythm without murmurs, gallops, or rubs. RESPIRATORY: Breath sounds equal bilaterally. No accessory muscle use. GASTROINTESTINAL: Abdomen soft, non-tender, nondistended. MUSCULOSKELETAL: No cyanosis, or edema. BACK: Nontender without obvious deformity. No CVA tenderness. A/P Assessment and Plan Mild dysnoea Pleural effusion, s/p TC Alcohlic hepatitis ETOH use Nicotine use PLAN: Supplement [address] fluid results GI YOUSIF underway. Stable pulm status Tomi Mckeon MD Jun 18, 2016 18:18
[2016-06-18] MEDS: CHLORHEXIDINE GLUCONATE 2 % 1 PACK (2 CLOTHS) TOP SCH (21:54)
[2016-06-18] MEDS: ONDANSETRON HCL 4 MG/2 ML VIAL IV PUSH PRN (22:18)
[2016-06-19] VITALS: BP 106/70; PULSE 128; RESP 18; TEMP 98.8; O2SAT 90
[2016-06-19] MEDS: MORPHINE SULFATE 4 MG/ML INJ IV PUSH PRN ×4 (03:09→21:17)
[2016-06-19] MEDS: RESP: ALBUTEROL 2.5 MG/IPRATROPIUM 0.5 MG NEB (SCH) NEB ×6 (04:00→20:00)
[2016-06-19 05:59] LABS: ANION GAP 10 MEQ/L (5-15); BICARBONATE 21.6 MEQ/L (21.0-32.0); BLOOD UREA NITROGEN LESS THAN 1 MG/DL (7-18); CHLORIDE 106 MEQ/L (98-107); GLOMERULAR FILTRATION RATE 169 ML/MIN (>89); POTASSIUM 4.2 MEQ/L (3.5-5.1); SODIUM (NA) 138 MEQ/L (136-145)
[2016-06-19] MEDS: INSULIN NovoLIN REGULAR SUPPLEMENTAL SCALE SQ SCH ×5 (06:00→23:48)
[2016-06-19] MEDS: PENTOXIFYLLINE 400 MG CONTROLLED RELEASE TAB PO SCH ×3 (06:01→21:08)
[2016-06-19] MEDS: LORazepam 0.5 MG TAB PO SCH ×3 (06:01→21:06)
[2016-06-19 08:00] VITALS: BP 100/60; PULSE 122; RESP 18; TEMP 98.1; O2SAT 90
[2016-06-19] MEDS: SODIUM CHLORIDE 0.9% FLUSH 10 ML FLUSH IV FLUSH SCH ×2 (08:38→21:07)
[2016-06-19] MEDS: MAGNESIUM OXIDE 400 MG TAB PO SCH ×2 (08:38→21:06)
[2016-06-19] MEDS: POTASSIUM PHOSPHATE MONOBASIC 500 MG TAB PO SCH (08:38)
[2016-06-19] MEDS: FOLIC ACID 1 MG TAB PO SCH (08:39)
[2016-06-19] MEDS: THIAMINE HCL 100 MG TAB PO SCH (08:39)
[2016-06-19] MEDS: CALCIUM CARBONATE 1.25 GM (CA 500 MG) TAB PO SCH ×2 (08:39→21:06)
[2016-06-19] MEDS: guaiFENesin E.R. 600 MG TAB PO SCH ×2 (08:39→21:07)
[2016-06-19] MEDS: MULTIVITAMIN TAB PO SCH (08:39)
[2016-06-19] MEDS: PANTOPRAZOLE SOD 40 MG DELAYED RELEASE TAB PO SCH (08:39)
[2016-06-19] MEDS: RIFAXIMIN 550 MG TAB PO SCH ×2 (08:39→21:06)
[2016-06-19] MEDS: POTASSIUM CHLORIDE 10 MEQ CONTROLLED RELEASE TAB PO SCH ×2 (08:39→21:06)
[2016-06-19 09:35] VITALS: O2SAT 93
[2016-06-19] MEDS: ONDANSETRON HCL 4 MG/2 ML VIAL IV PUSH PRN ×2 (10:47→18:37)
[2016-06-19] MEDS ORDERED: SODIUM PHOSPHATE INJ 30 MMOL in SODIUM CHLOR 0.9% 250 ML INJ 250 ML IV ONE (11:15)
--- NOTE | 2016-06-19 11:15 | HHI.PR ---
Subjective Remarks This is a pleasant 31 y/o Female, came to ER with SOB, active Drinker of Vodka on daily basis, CT abdomen and Pelvis has fatty liver, mild splenomegaly, small to moderate ascites Cholelithiasis, Small hiatal hernia, received Zosyn in ER, seen in her bedroom in the presence at all times of female nurses Miss Chaney and Charge Nurse, complaint of Shortness of breath probable pleural effusion has bilateral inspiratory crackles specially on right lung, to follow with CXR, added Bronchodilator, Mucolytic and Incentive spirometry. 06/19: Seen in her bedroom in the presence of nurse Miss Underwood continue present care, no Nausea, vomit or diarrhea. Objective Vital Signs Date Time Temp Pulse Resp B/P Pulse Ox O2 Delivery O2 Flow Rate FiO2 06/19/16 09:35 93 Nasal Cannula 3.00 06/19/16 08:45 90 Nasal Cannula 3.00 06/19/16 08:00 98.1 122 18 100/60 90 06/19/16 00:00 98.8 128 18 106/70 90 06/18/16 22:17 22 06/18/16 20:52 90 Nasal Cannula 3.00 06/18/16 20:00 98.3 139 18 107/69 92 06/18/16 20:00 Nasal Cannula 3.00 06/18/16 16:00 99.5 137 18 93/60 90 06/18/16 12:47 92 Nasal Cannula 3.00 06/18/16 12:00 99.2 126 18 92/59 90 I/O 06/18/16 06/18/16 06/18/16 06/19/16 06/19/16 06/19/16 07:00 15:00 23:00 07:00 15:00 23:00 Intake Total 0 ml 1200 ml 960 ml 240 ml Balance 0 ml 1200 ml 960 ml 240 ml Intake Oral 0 ml 1200 ml 960 ml 240 ml IV Total 0 ml # Voids 1 4 4 1 # Bowel Movements 1 3 4 1 Result Diagram: 06/16/16 1007 06/19/16 0417 Imaging Last Impressions Chest X-Ray 06/18/16 0000 Signed Impressions: Service Date/Time: Saturday, June 18, 2016 10:37 - CONCLUSION: No significant change has occurred. Pedro Pablo Rose MD Abdomen Ultrasound 06/17/16 0000 Signed Impressions: Service Date/Time: Friday, June 17, 2016 10:00 - CONCLUSION: There is not enough fluid for safe paracentesis.. Harish Chaudhary MD FACR Thoracentesis Ultrasound 06/16/16 0000 Signed Impressions: Service Date/Time: May 14:13 - CONCLUSION: Uncomplicated ultrasound guided thoracentesis. Qasim Osuna MD Hepatobiliary Scan Nuclear Medicine 06/10/16 0000 Signed Impressions: Service Date/Time: Friday, June 10, 2016 12:50 - CONCLUSION: 1. Scintigraphic findings suggesting hepatocellular dysfunction with sluggish washout and persistent background activity. 2. Due to limited excretion, it is difficult to identify the extrahepatic biliary tree. However, activity is seen in the small bowel by 10 minutes. 3. No scintigraphic findings of acute cholecystitis. Bob Lara MD Cholangiopancreatography MRI 06/10/16 0000 Signed Impressions: Service Date/Time: Friday, June 10, 2016 12:25 - CONCLUSION: 1. Hepatosplenomegaly with significantly and inhomogeneously fatty infiltrated liver. 2. Slight ascites and bilateral pleural effusions. 3. Cholelithiasis and pericholecystic fluid and cholecystitis is not excluded. Mert Laurent MD Procedures 06/16- thoracentesis 500 cc out- transudate Other Results Laboratory Tests Test 06/10/16 06/15/16 06/15/16 06/15/16 16:35 12:28 13:43 15:48 Mitochondria M2 Antibody LESS THAN 20.0 U Anti-Smooth Muscle Antibody Negative [id number] 279 mg/dL Ceruloplasmin 24 mg/dL 25-Hydroxy Vitamin D Total 7.3 ng/ML Blood Gas Puncture Site RT RADIAL Blood Gas Patient Temperature 98.6 Blood Gas HCO3 20 mmol/L Blood Gas Base Excess -3.6 mmol/L Blood Gas Oxygen Saturation 93 % Arterial Blood pH 7.46 Arterial Blood Partial 28 mmHg Pressure CO2 Arterial Blood Partial 78 mmHg Pressure O2 Arterial Blood Oxygen Content 13.5 Vol % Arterial Blood 1.6 % Carboxyhemoglobin Arterial Blood Methemoglobin 0.7 % Blood Gas Hemoglobin 10.2 G/DL Oxygen Delivery Device NASAL CANNULA Blood Gas Liter Flow 4 L/M Neutrophils (%) (Auto) 83.9 % Lymphocytes (%) (Auto) 7.7 % Monocytes (%) (Auto) 6.0 % Eosinophils (%) (Auto) 0.7 % Basophils (%) (Auto) 1.7 % Neutrophils # (Auto) 12.3 TH/MM3 Lymphocytes # (Auto) 1.1 TH/MM3 Monocytes # (Auto) 0.9 TH/MM3 Eosinophils # (Auto) 0.1 TH/MM3 Basophils # (Auto) 0.3 TH/MM3 CBC Comment DIFF FINAL Differential Comment Test 06/16/16 06/16/16 06/16/16 06/18/16 10:07 11:50 14:55 12:16 White Blood Count 12.9 TH/MM3 Red Blood Count 2.72 MIL/MM3 Hemoglobin 9.5 GM/DL Hematocrit 29.0 % Mean Corpuscular Volume 106.6 FL Mean Corpuscular Hemoglobin 34.8 PG Mean Corpuscular Hemoglobin 32.7 % Concent Red Cell Distribution Width 15.6 % Platelet Count 158 TH/MM3 Mean Platelet Volume 9.8 FL Protein Corrected Calcium 8.1 MG/DL Total Bilirubin 4.3 MG/DL Aspartate Amino Transf 111 U/L (AST/SGOT) Alanine Aminotransferase 18 U/L (ALT/SGPT) Alkaline Phosphatase 176 U/L B-Type Natriuretic Peptide 181 PG/ML Total Protein 4.8 GM/DL Albumin 1.4 GM/DL Prothrombin Time 21.4 SEC Prothromb Time International 1.9 RATIO Ratio Pleural Fluid pH 8.0 Pleural Fluid WBC 176 /MM3 Pleural Fluid RBC 17 /MM3 Pleural Fluid Neutrophils 2 % Pleural Fluid Lymphocytes 12 % Pleural Fluid Monocytes 52 % Pleural Fluid Histiocytes 15 % Pleural Fluid Mesothelial 19 % Cells Pleural Fluid Total Protein 0.5 GM/DL Pleural Fluid LDH 74 U/L Pleural Fluid Glucose 104 MG/DL Pleural Fluid Amylase LESS THAN 2 U/L Magnesium Level 1.8 MG/DL Test 06/19/16 04:17 Sodium Level 138 MEQ/L Potassium Level 4.2 MEQ/L Chloride Level 106 MEQ/L Carbon Dioxide Level 21.6 MEQ/L Anion Gap 10 MEQ/L Blood Urea Nitrogen LESS THAN 1 MG/DL Creatinine 0.43 MG/DL Estimat Glomerular Filtration 169 ML/MIN Rate Random Glucose 110 MG/DL Calcium Level 7.7 MG/DL Phosphorus Level 1.4 MG/DL Objective Remarks GENERAL: NO acute distress. SKIN: Warm and dry. HEAD: Atraumatic. Normocephalic. EYES: Pupils equal and round. No scleral icterus. No injection or drainage. ENT: No nasal bleeding or discharge. Mucous membranes pink and moist. NECK: Trachea midline. No JVD. CARDIOVASCULAR: Regular rate and rhythm. tachycardic. RESPIRATORY: Decreased breath sounds bilateral. no wheezing or crackles. GASTROINTESTINAL: Abdomen soft, non-tender, moderate distension. MUSCULOSKELETAL: Extremities without clubbing, cyanosis, pedal edema. NEUROLOGICAL: Awake and alert. No obvious cranial nerve deficits. PSYCHIATRIC: Appropriate mood and affect; insight and judgment normal Medications and IVs Current Medications Medications (Trade) Dose Ordered Sig/Deni Route Start Time Stop Time Status Last Admin (TRENtal SR) 400 mg Q8HR PO 06/10/16 14:00 06/19/16 06:01 Miscellaneous Information 1 Q361D XX 06/10/16 12:30 (Chlorhexidine 2% Cloth) Taper DAILY@04 TOP 06/11/16 04:00 06/07/17 03:59 06/10/16 19:57 (Chlorhexidine 2% Cloth) 3 pack UNSCH PRN TOP 06/10/16 12:30 06/10/16 19:57 (Vitamin B1) 100 mg DAILY PO 06/10/16 12:30 06/19/16 08:39 (Folate) 1 mg DAILY PO 06/10/16 12:30 06/19/16 08:39 (Theragran) 1 tab DAILY PO 06/10/16 12:30 06/19/16 08:39 (D50w (Vial) Inj) 25 ml UNSCH PRN IV PUSH 06/10/16 13:00 (Glucagon Inj) 1 mg UNSCH PRN OTHER 06/10/16 13:00 (NovoLIN R SUPPLEMENTAL SCALE) 1 Q6HR SQ 06/10/16 13:00 06/13/16 18:30 (Morphine Inj) 1 mg Q4H PRN IV PUSH 06/10/16 16:45 06/19/16 10:44 (NS Flush) 2 ml UNSCH PRN IV FLUSH 06/10/16 18:45 (NS Flush) 2 ml BID IV FLUSH 06/10/16 21:00 06/19/16 08:38 (Romazicon Inj) 0.2 mg Q1M PRN IV PUSH 06/10/16 18:45 (K-Phos) 500 mg DAILY PO 06/12/16 09:00 06/19/16 08:38 (Oscal) 500 mg BID PO 06/12/16 09:00 06/19/16 08:39 (Mag-Ox) 400 mg BID PO 06/12/16 09:00 06/19/16 08:38 (Xifaxan) 550 mg BID PO 06/12/16 21:00 06/19/16 08:39 (KCl) 30 meq Q12HR PO 06/13/16 09:00 06/19/16 08:39 (Protonix) 40 mg DAILY PO 06/16/16 09:00 06/19/16 08:39 (Ativan) 0.5 mg Q8HR PO 06/15/16 16:15 06/19/16 06:01 (Mucinex Er) 600 mg BID PO 06/18/16 09:15 06/19/16 08:39 (Zofran Inj) 4 mg Q6HR PRN IV PUSH 06/18/16 22:15 06/19/16 10:47 A/P Assessment and Plan 1. Electrolyte derangement status post replacement, Hypophosphatemia replaced. 2. Right pleural effusion status post Thoracentesis, transudate likely from liver cirrhosis. echo EF 60%. 3. Gram + bacteremia contaminant, ID following Antibiotics discontinued. 4. Alcoholic Hepatitis Ascites on Exam US shows minimal fluid, CIWA protocol. 5. SIRS no need for antibiotics as per ID specialist. CXR no new changes. continue respiratory management desktop support specialist following. PT consult for deconditioning CM consult Discharge Planning Expected in one to two days. Tai Huerta MD Jun 19, 2016 11:14 Tai Huerta MD Jun 19, 2016 11:14
[2016-06-19 12:00] VITALS: BP 100/64; PULSE 132; RESP 17; TEMP 97.8; O2SAT 90
[2016-06-19 16:00] VITALS: BP 101/71; PULSE 125; RESP 20; TEMP 97.9; O2SAT 92
--- NOTE | 2016-06-19 16:28 | HHI.PR ---
Subjective Remarks 31 YOWF with ETOH use, sob, pl eff Feels better less sob no CP Ambulates Still has itching and skin rash Objective Vital Signs Vital Signs Date Time Temp Pulse Resp B/P Pulse Ox O2 Delivery O2 Flow Rate FiO2 06/19/16 16:00 97.9 125 20 101/71 92 06/19/16 12:00 97.8 132 17 100/64 90 06/19/16 09:35 93 Nasal Cannula 3.00 06/19/16 08:45 90 Nasal Cannula 3.00 06/19/16 08:00 98.1 122 18 100/60 90 06/19/16 00:00 98.8 128 18 106/70 90 06/18/16 22:17 22 06/18/16 20:52 90 Nasal Cannula 3.00 06/18/16 20:00 98.3 139 18 107/69 92 06/18/16 20:00 Nasal Cannula 3.00 I/O 06/18/16 06/18/16 06/18/16 06/19/16 06/19/16 06/19/16 07:00 15:00 23:00 07:00 15:00 23:00 Intake Total 0 ml 1200 ml 960 ml 240 ml 1020 ml Balance 0 ml 1200 ml 960 ml 240 ml 1020 ml Intake Oral 0 ml 1200 ml 960 ml 240 ml 960 ml IV Total 0 ml 60 ml # Voids 1 4 4 1 3 # Bowel Movements 1 3 4 1 0 Result Diagram: 06/16/16 1007 06/19/16 0417 Objective Remarks GENERAL: MBMN WF,NAD SKIN: Warm and dry. HEAD: Normocephalic. EYES: No scleral icterus. No injection or drainage. NECK: Supple, trachea midline. No JVD or lymphadenopathy. CARDIOVASCULAR: Regular rate and rhythm without murmurs, gallops, or rubs. RESPIRATORY: Breath sounds equal bilaterally. No accessory muscle use. GASTROINTESTINAL: Abdomen soft, non-tender, nondistended. MUSCULOSKELETAL: No cyanosis, or edema. BACK: Nontender without obvious deformity. No CVA tenderness. A/P Assessment and Plan Mild dysnoea Pleural effusion, s/p TC Alcohlic hepatitis ETOH use Nicotine use PLAN: wean [address] fluid results GI YOUSIF underway. Stable pulm status Tomi Mckeon MD Jun 19, 2016 16:28
[2016-06-19] MEDS ORDERED: diphenhydrAMINE HCL 25 MG CAP PO PRN (17:00)
[2016-06-19 20:00] VITALS: BP 96/58; PULSE 133; RESP 18; TEMP 98.9; O2SAT 92
[2016-06-20] VITALS (9 sets, daily range): BP systolic 87–110; BP diastolic 53–66; PULSE 104–135; RESP 16–20; TEMP 95.8–99.2; O2SAT 87–97
[2016-06-20] MEDS: MORPHINE SULFATE 4 MG/ML INJ IV PUSH PRN (03:09)
[2016-06-20] MEDS: CHLORHEXIDINE GLUCONATE 2 % 1 PACK (2 CLOTHS) TOP SCH (04:00)
[2016-06-20] MEDS: RESP: ALBUTEROL 2.5 MG/IPRATROPIUM 0.5 MG NEB (SCH) NEB ×2 (04:21)
[2016-06-20] MEDS: ONDANSETRON HCL 4 MG/2 ML VIAL IV PUSH PRN ×2 (04:45→16:53)
[2016-06-20] MEDS: LORazepam 0.5 MG TAB PO SCH (04:49)
[2016-06-20] MEDS: PENTOXIFYLLINE 400 MG CONTROLLED RELEASE TAB PO SCH ×3 (04:49→21:53)
[2016-06-20] MEDS: INSULIN NovoLIN REGULAR SUPPLEMENTAL SCALE SQ SCH ×3 (04:53→17:55)
--- NOTE | 2016-06-20 08:34 | HHI.PR ---
Subjective Remarks This is a pleasant 31 y/o Female, came to ER with SOB, active Drinker of Vodka on daily basis, CT abdomen and Pelvis has fatty liver, mild splenomegaly, small to moderate ascites Cholelithiasis, Small hiatal hernia, received Zosyn in ER, seen in her bedroom in the presence at all times of female nurses Ritu and Charge Nurse, complaint of Shortness of breath probable pleural effusion has bilateral inspiratory crackles specially on right lung, to follow with CXR, added Bronchodilator, Mucolytic and Incentive spirometry. 06/20: Evaluated in the presence of nurse Miss Plummer, nurse states she had some Hypoxemia, but at this time stable, maintain oxygen saturation over 92%, asymptomatic, worsens when she gets some activity, No Nausea, vomit or diarrhea, but not yet ready for discharge states she has Headache, will remove Morphine IV due to hypotension and also refuse her bronchodilator, switch to Ipratropium bromide and Budesonide. Objective Vital Signs Date Time Temp Pulse Resp B/P Pulse Ox O2 Delivery O2 Flow Rate FiO2 06/20/16 04:22 90 Nasal Cannula 3.00 06/20/16 04:00 98.0 118 20 110/62 96 06/20/16 00:00 97.6 104 20 106/56 94 06/19/16 21:00 Nasal Cannula 3.00 06/19/16 20:00 98.9 133 18 96/58 92 06/19/16 16:00 97.9 125 20 101/71 92 06/19/16 12:00 97.8 132 17 100/64 90 06/19/16 09:35 93 Nasal Cannula 3.00 06/19/16 08:45 90 Nasal Cannula 3.00 I/O 06/19/16 06/19/16 06/19/16 06/20/16 06/20/16 06/20/16 07:00 15:00 23:00 07:00 15:00 23:00 Intake Total 240 ml 1020 ml 480 ml Output Total 650 ml Balance 240 ml 1020 ml -170 ml Intake Oral 240 ml 960 ml 480 ml IV Total 0 ml 60 ml Output Urine Total 650 ml # Voids 1 3 # Bowel Movements 1 0 0 Result Diagram: 06/16/16 1007 06/19/16 0417 Imaging Last Impressions Chest X-Ray 06/18/16 0000 Signed Impressions: Service Date/Time: Saturday, June 18, 2016 10:37 - CONCLUSION: No significant change has occurred. Pedro Pablo Rose MD Abdomen Ultrasound 06/17/16 0000 Signed Impressions: Service Date/Time: Friday, June 17, 2016 10:00 - CONCLUSION: There is not enough fluid for safe paracentesis.. Harish Chaudhary MD FACR Thoracentesis Ultrasound 06/16/16 0000 Signed Impressions: Service Date/Time: May 14:13 - CONCLUSION: Uncomplicated ultrasound guided thoracentesis. Qasim Osuna MD Hepatobiliary Scan Nuclear Medicine 06/10/16 0000 Signed Impressions: Service Date/Time: Friday, June 10, 2016 12:50 - CONCLUSION: 1. Scintigraphic findings suggesting hepatocellular dysfunction with sluggish washout and persistent background activity. 2. Due to limited excretion, it is difficult to identify the extrahepatic biliary tree. However, activity is seen in the small bowel by 10 minutes. 3. No scintigraphic findings of acute cholecystitis. Bob Lara MD Cholangiopancreatography MRI 06/10/16 0000 Signed Impressions: Service Date/Time: Friday, June 10, 2016 12:25 - CONCLUSION: 1. Hepatosplenomegaly with significantly and inhomogeneously fatty infiltrated liver. 2. Slight ascites and bilateral pleural effusions. 3. Cholelithiasis and pericholecystic fluid and cholecystitis is not excluded. Mert Laurent MD Procedures 06/16- thoracentesis 500 cc out- transudate Other Results Laboratory Tests Test 06/10/16 06/16/16 06/16/16 06/16/16 16:35 10:07 11:50 14:55 [id number] 279 mg/dL Ceruloplasmin 24 mg/dL White Blood Count 12.9 TH/MM3 Red Blood Count 2.72 MIL/MM3 Hemoglobin 9.5 GM/DL Hematocrit 29.0 % Mean Corpuscular Volume 106.6 FL Mean Corpuscular Hemoglobin 34.8 PG Mean Corpuscular Hemoglobin 32.7 % Concent Red Cell Distribution Width 15.6 % Platelet Count 158 TH/MM3 Mean Platelet Volume 9.8 FL Protein Corrected Calcium 8.1 MG/DL Total Bilirubin 4.3 MG/DL Aspartate Amino Transf 111 U/L (AST/SGOT) Alanine Aminotransferase 18 U/L (ALT/SGPT) Alkaline Phosphatase 176 U/L B-Type Natriuretic Peptide 181 PG/ML Total Protein 4.8 GM/DL Albumin 1.4 GM/DL Prothrombin Time 21.4 SEC Prothromb Time International 1.9 RATIO Ratio Pleural Fluid pH 8.0 Pleural Fluid WBC 176 /MM3 Pleural Fluid RBC 17 /MM3 Pleural Fluid Neutrophils 2 % Pleural Fluid Lymphocytes 12 % Pleural Fluid Monocytes 52 % Pleural Fluid Histiocytes 15 % Pleural Fluid Mesothelial 19 % Cells Pleural Fluid Total Protein 0.5 GM/DL Pleural Fluid LDH 74 U/L Pleural Fluid Glucose 104 MG/DL Pleural Fluid Amylase LESS THAN 2 U/L Test 06/18/16 06/19/16 12:16 04:17 Magnesium Level 1.8 MG/DL Sodium Level 138 MEQ/L Potassium Level 4.2 MEQ/L Chloride Level 106 MEQ/L Carbon Dioxide Level 21.6 MEQ/L Anion Gap 10 MEQ/L Blood Urea Nitrogen LESS THAN 1 MG/DL Creatinine 0.43 MG/DL Estimat Glomerular Filtration 169 ML/MIN Rate Random Glucose 110 MG/DL Calcium Level 7.7 MG/DL Phosphorus Level 1.4 MG/DL Objective Remarks GENERAL: NO acute distress. SKIN: Warm and dry. HEAD: Atraumatic. Normocephalic. EYES: Pupils equal and round. No scleral icterus. No injection or drainage. ENT: No nasal bleeding or discharge. Mucous membranes pink and moist. NECK: Trachea midline. No JVD. CARDIOVASCULAR: Regular rate and rhythm. tachycardic. RESPIRATORY: Decreased breath sounds bilateral. no wheezing or crackles. GASTROINTESTINAL: Abdomen soft, non-tender, moderate distension. MUSCULOSKELETAL: Extremities without clubbing, cyanosis, pedal edema. NEUROLOGICAL: Awake and alert. No obvious cranial nerve deficits. PSYCHIATRIC: Appropriate mood and affect; insight and judgment normal Medications and IVs Current Medications Medications (Trade) Dose Ordered Sig/Deni Route Start Time Stop Time Status Last Admin (TRENtal SR) 400 mg Q8HR PO 06/10/16 14:00 06/20/16 04:49 Miscellaneous Information 1 Q361D XX 06/10/16 12:30 (Chlorhexidine 2% Cloth) Taper DAILY@04 TOP 06/11/16 04:00 06/07/17 03:59 06/10/16 19:57 (Chlorhexidine 2% Cloth) 3 pack UNSCH PRN TOP 06/10/16 12:30 06/10/16 19:57 (Vitamin B1) 100 mg DAILY PO 06/10/16 12:30 06/19/16 08:39 (Folate) 1 mg DAILY PO 06/10/16 12:30 06/19/16 08:39 (Theragran) 1 tab DAILY PO 06/10/16 12:30 06/19/16 08:39 (D50w (Vial) Inj) 25 ml UNSCH PRN IV PUSH 06/10/16 13:00 (Glucagon Inj) 1 mg UNSCH PRN OTHER 06/10/16 13:00 (NovoLIN R SUPPLEMENTAL SCALE) 1 Q6HR SQ 06/10/16 13:00 06/19/16 12:30 (NS Flush) 2 ml UNSCH PRN IV FLUSH 06/10/16 18:45 (NS Flush) 2 ml BID IV FLUSH 06/10/16 21:00 06/19/16 21:07 (Romazicon Inj) 0.2 mg Q1M PRN IV PUSH 06/10/16 18:45 (K-Phos) 500 mg DAILY PO 06/12/16 09:00 06/19/16 08:38 (Oscal) 500 mg BID PO 06/12/16 09:00 06/19/16 21:06 (Mag-Ox) 400 mg BID PO 06/12/16 09:00 06/19/16 21:06 (Xifaxan) 550 mg BID PO 06/12/16 21:00 06/19/16 21:06 (KCl) 30 meq Q12HR PO 06/13/16 09:00 06/19/16 21:06 (Protonix) 40 mg DAILY PO 06/16/16 09:00 06/19/16 08:39 (Ativan) 0.5 mg Q8HR PO 06/15/16 16:15 06/20/16 04:49 (Mucinex Er) 600 mg BID PO 06/18/16 09:15 06/19/16 21:07 (Zofran Inj) 4 mg Q6HR PRN IV PUSH 06/18/16 22:15 06/20/16 04:45 (Benadryl) 25 mg Q6H PRN PO 06/19/16 17:00 A/P Assessment and Plan 1. Electrolyte derangement status post replacement, Hypophosphatemia replaced. 2. Right pleural effusion status post Thoracentesis, transudate likely from liver cirrhosis. echo EF 60%. 3. Gram + bacteremia contaminant, ID following Antibiotics discontinued. 4. Alcoholic Hepatitis Ascites on Exam US shows minimal fluid, CIWA protocol. 5. SIRS no need for antibiotics as per ID specialist. 6. Hypoalbuminemia secondary to basal pathology will give Albumin two doses to improve symptoms. temporarily. CXR no new changes. continue respiratory management switch to Ipratropium bromide and Budesonide. art therapy specialist following. PT consult for deconditioning CM consult Discharge Planning Expected in one to two days. Tai Huerta MD June 20, 2016 08:34
[2016-06-20] MEDS: ALBUMIN HUMAN 25% 25 GM/100 ML BAGP IV SCH ×2 (09:39→21:54)
[2016-06-20] MEDS: PANTOPRAZOLE SOD 40 MG DELAYED RELEASE TAB PO SCH (09:39)
[2016-06-20] MEDS: POTASSIUM CHLORIDE 10 MEQ CONTROLLED RELEASE TAB PO SCH ×2 (09:39→21:54)
[2016-06-20] MEDS: POTASSIUM PHOSPHATE MONOBASIC 500 MG TAB PO SCH (09:39)
[2016-06-20] MEDS: FOLIC ACID 1 MG TAB PO SCH (09:39)
[2016-06-20] MEDS: guaiFENesin E.R. 600 MG TAB PO SCH ×2 (09:39→21:53)
[2016-06-20] MEDS: LORazepam 0.5 MG TAB PO PRN (09:39)
[2016-06-20] MEDS: RIFAXIMIN 550 MG TAB PO SCH ×2 (09:40→21:53)
[2016-06-20] MEDS: SODIUM CHLORIDE 0.9% FLUSH 10 ML FLUSH IV FLUSH SCH ×2 (09:40→21:00)
[2016-06-20] MEDS: CALCIUM CARBONATE 1.25 GM (CA 500 MG) TAB PO SCH ×2 (09:40→21:53)
[2016-06-20] MEDS: MULTIVITAMIN TAB PO SCH (09:40)
[2016-06-20] MEDS: MAGNESIUM OXIDE 400 MG TAB PO SCH ×2 (09:40→21:53)
[2016-06-20] MEDS: THIAMINE HCL 100 MG TAB PO SCH (09:40)
[2016-06-20] MEDS: RESP: IPRATROPIUM 0.5 MG/2.5 ML NEB NEB SCH ×3 (11:23→20:00)
[2016-06-20] MEDS: RESP: BUDESONIDE 0.5 MG/2 ML NEB NEB SCH ×2 (11:23→20:00)
[2016-06-20] MEDS: ACETAMINOPHEN/HYDROcodone 325 MG/5 MG TAB PO PRN (16:53)
--- NOTE | 2016-06-20 17:18 | HHI.PR ---
Subjective Remarks 31 YOWF with ETOH use, sob, pl eff Had episode of ' panic" Better now at BS no CP Ambulates Still has itching and skin rash Objective Vital Signs Vital Signs Date Time Temp Pulse Resp B/P Pulse Ox O2 Delivery O2 Flow Rate FiO2 06/20/16 16:00 95.8 135 18 101/66 90 06/20/16 12:00 98.8 131 17 87/54 87 06/20/16 08:55 Nasal Cannula 3.00 06/20/16 08:53 92 Nasal Cannula 4.00 06/20/16 08:00 99.2 135 16 93/53 06/20/16 04:22 90 Nasal Cannula 3.00 06/20/16 04:00 98.0 118 20 110/62 96 06/20/16 00:00 97.6 104 20 106/56 94 06/19/16 21:00 Nasal Cannula 3.00 06/19/16 20:00 98.9 133 18 96/58 92 I/O 06/19/16 06/19/16 06/19/16 06/20/16 06/20/16 06/20/16 07:00 15:00 23:00 07:00 15:00 23:00 Intake Total 240 ml 1020 ml 480 ml 550 ml Output Total 650 ml Balance 240 ml 1020 ml -170 ml 550 ml Intake Oral 240 ml 960 ml 480 ml 450 ml IV Total 0 ml 60 ml 0 ml Albumin 100 ml Output Urine Total 650 ml # Voids 1 3 3 # Bowel Movements 1 0 0 3 Result Diagram: 06/16/16 1007 06/19/16 0417 Objective Remarks GENERAL: MBMN WF,NAD SKIN: Warm and dry. HEAD: Normocephalic. EYES: No scleral icterus. No injection or drainage. NECK: Supple, trachea midline. No JVD or lymphadenopathy. CARDIOVASCULAR: Regular rate and rhythm without murmurs, gallops, or rubs. RESPIRATORY: Breath sounds equal bilaterally. No accessory muscle use. GASTROINTESTINAL: Abdomen soft, non-tender, nondistended. MUSCULOSKELETAL: No cyanosis, or edema. BACK: Nontender without obvious deformity. No CVA tenderness. A/P Assessment and Plan Mild dysnoea Pleural effusion, s/p TC Alcohlic hepatitis ETOH use Nicotine use PLAN: wean [address] fluid results GI YOUSIF underway. VIANNEY pt and her . Tomi Mckeon MD June 20, 2016 17:18
[2016-06-21] VITALS (11 sets, daily range): BP systolic 98–118; BP diastolic 61–70; PULSE 116–126; RESP 16–24; TEMP 96.7–97.6; O2SAT 88–96
[2016-06-21] MEDS: RESP: IPRATROPIUM 0.5 MG/2.5 ML NEB NEB SCH ×7 (00:16→23:59)
[2016-06-21] MEDS: ACETAMINOPHEN/HYDROcodone 325 MG/5 MG TAB PO PRN ×3 (00:26→20:26)
[2016-06-21] MEDS ORDERED: methylPREDNISolone SOD SUCC 125 MG/2 ML VIAL IV PUSH ONE (01:00)
--- NOTE | 2016-06-21 01:37 | RADRPT ---
EXAM DATE/TIME: 06/21/2016 00:51 [facility] COMPARISON: CHEST PA & LAT, June 18, 2016, 10:37. CHEST SINGLE AP, June 16, 2016, 15:09. INDICATIONS : Dyspnea. MEDICAL HISTORY : None. SURGICAL HISTORY : None. ENCOUNTER: Subsequent ACUITY: 1 week PAIN SCORE: 0/10 LOCATION: Bilateral chest FINDINGS: The cardiac silhouette is normal in transverse diameter. There is bilateral lower lobe atelectasis ve rsus pneumonia. There is alveolar disease in the right upper lobe which is also new characteristic of pneumonia. Moderate size bilateral pleural effusions are identified. The findings have worsened when compared with the prior examination. CONCLUSION: 1. Increasing bibasilar atelectasis versus pneumonia and effusions 2. Right upper lobe pneumonia new when compared to prior study Jamaal Eastman MD on June 21, 2016 at 1:33 Board Certified Radiologist. This report was verified electronically.
[2016-06-21] MEDS: CHLORHEXIDINE GLUCONATE 2 % 1 PACK (2 CLOTHS) TOP SCH (03:33)
[2016-06-21] MEDS ORDERED: LEVOFLOXACIN 500 MG PREMIX INJ 100 ML IV SCH (05:30)
[2016-06-21] MEDS ORDERED: RESP: IPRATROPIUM 0.5 MG/2.5 ML NEB NEB ONE (05:30)
[2016-06-21] MEDS ORDERED: FUROSEMIDE 40 MG/4 ML VIAL IV PUSH ONE ×2 (05:30→21:45)
[2016-06-21] MEDS: LEVOFLOXACIN 750 MG TAB PO SCH (05:34)
[2016-06-21] MEDS: PENTOXIFYLLINE 400 MG CONTROLLED RELEASE TAB PO SCH ×3 (05:34→22:21)
[2016-06-21] MEDS: INSULIN NovoLIN REGULAR SUPPLEMENTAL SCALE SQ SCH ×4 (06:00→17:02)
--- NOTE | 2016-06-21 06:05 | HHI.PR ---
Addendum to Inpatient Note Addendum Reason: Additional Documentation Additional Information I came to see this patient at the request of Dr. Kingsley. She received a call shortly after midnight last night about the patient's increasing oxygen needs - the patient was not in distress but oxygen saturation was around 88% on 4L nasal cannula. She ordered a stat chest x-ray and Solumedrol 125 mg IV. She received a second call after 5 a.m. this morning. The nurse indicated that the patient's oxygen saturation was now 88% on 50% venti mask and respiratory rate is around 30. Chest x-ray results reviewed and show versus pneumonia and effusions as well as right upper lobe pneumonia and new compared to prior study. Dr. Kingsley ordered Levaquin 750 mg p.o. q24h, Lasix 40 mg IVP, Albuterol 0.5 mg nebulizer and asked me to come evaluate the patient. The patient is seen in her hospital room. Her respiratory rate is 30 breaths per minute, she is not using accessory muscles though, her heart rate is in the 120s, and her oxygen saturation remains at 88% on 50% Ventimask. The patient tells me she just wants to be allowed to sleep and that her breathing is a little worse than usual but she is more concerned about not being allowed to rest. Shortly after I arrived, the nurse was preparing to administer the Levaquin and Lasix as ordered. Discussed findings with Dr. Kingsley. We will plan to monitor patient's status closely to determine whether or not patient's symptoms improve with IV Lasix; if she worsens, we will need to adjust treatment plan. 0608: F/U visit - the patient's respirations are 20, heart rate remains in 120's , but oxygen saturation is now between 90 and 92 on 50% venti mask. The patient has already gotten up to urinate once but there was no collection system to measure urine in her toilet. Will need strict I and O. Will continue to monitor. (Gisele Reynolds) Gisele Reynolds June 21, 2016 06:05 Mor Kingsley MD Aug 01, 2016 11:47
[2016-06-21 06:39] LABS: ANION GAP 10 MEQ/L (5-15); BICARBONATE 22.5 MEQ/L (21.0-32.0); BLOOD UREA NITROGEN LESS THAN 1 MG/DL (7-18); CHLORIDE 105 MEQ/L (98-107); GLOMERULAR FILTRATION RATE 139 ML/MIN (>89); MAGNESIUM 1.9 MG/DL (1.5-2.5); POTASSIUM 4.8 MEQ/L (3.5-5.1); SODIUM (NA) 137 MEQ/L (136-145)
[2016-06-21] MEDS: RESP: BUDESONIDE 0.5 MG/2 ML NEB NEB SCH ×2 (08:00→20:00)
[2016-06-21] MEDS: MAGNESIUM OXIDE 400 MG TAB PO SCH ×2 (08:03→20:27)
[2016-06-21] MEDS: THIAMINE HCL 100 MG TAB PO SCH (08:03)
[2016-06-21] MEDS: MULTIVITAMIN TAB PO SCH (08:03)
[2016-06-21] MEDS: RIFAXIMIN 550 MG TAB PO SCH ×2 (08:03→20:26)
[2016-06-21] MEDS: PANTOPRAZOLE SOD 40 MG DELAYED RELEASE TAB PO SCH (08:03)
[2016-06-21] MEDS: POTASSIUM CHLORIDE 10 MEQ CONTROLLED RELEASE TAB PO SCH ×2 (08:03→20:27)
[2016-06-21] MEDS: guaiFENesin E.R. 600 MG TAB PO SCH ×2 (08:03→20:27)
[2016-06-21] MEDS: FOLIC ACID 1 MG TAB PO SCH (08:04)
[2016-06-21] MEDS: SODIUM CHLORIDE 0.9% FLUSH 10 ML FLUSH IV FLUSH SCH ×2 (08:04→20:27)
[2016-06-21] MEDS: CALCIUM CARBONATE 1.25 GM (CA 500 MG) TAB PO SCH ×2 (08:04→20:26)
[2016-06-21] MEDS: POTASSIUM PHOSPHATE MONOBASIC 500 MG TAB PO SCH (08:04)
--- NOTE | 2016-06-21 08:34 | HHI.PR ---
Subjective Remarks This is a pleasant 31 y/o Female, came to ER with SOB, active Drinker of Vodka on daily basis, CT abdomen and Pelvis has fatty liver, mild splenomegaly, small to moderate ascites Cholelithiasis, Small hiatal hernia, received Zosyn in ER, seen in her bedroom in the presence at all times of female nurses Miss Chaney and Charge Nurse, complaint of Shortness of breath probable pleural effusion has bilateral inspiratory crackles specially on right lung, to follow with CXR, added Bronchodilator, Mucolytic and Incentive spirometry. 06/20: Evaluated in the presence of nurse Miss Plummer, nurse states she had some Hypoxemia, but at this time stable, maintain oxygen saturation over 92%, asymptomatic, worsens when she gets some activity, No Nausea, vomit or diarrhea, but not yet ready for discharge states she has Headache, will remove Morphine IV due to hypotension and also refuse her bronchodilator, switch to Ipratropium bromide and Budesonide. 06/21: Seen in her bedroom early in the morning and discussed with nurse Miss Casas, no nausea, vomit or diarrhea, she had Respiratory insufficiency during the night. I have been called again twice by nurse due to respiratory insufficiency, was called Rapid response team and recommended going to Intensive care unit patient is stable and no distress on arrival to intensive care unit, was discussed with litigation legal assistant Doctor Alvaro Egan appreciated assistance. Objective Vital Signs Date Time Temp Pulse Resp B/P Pulse Ox O2 Delivery O2 Flow Rate FiO2 06/21/16 08:12 94 Simple Mask 8.00 06/21/16 06:14 92 Simple Mask 8.00 06/21/16 06:03 91 Venturi Mask 6.00 50 06/21/16 00:16 88 4.00 06/21/16 00:00 97.6 116 22 118/66 92 06/20/16 21:00 Nasal Cannula 3.00 06/20/16 20:26 97 Nasal Cannula 4.00 06/20/16 20:00 98.2 111 20 100/62 94 06/20/16 16:00 95.8 135 18 101/66 90 06/20/16 12:00 98.8 131 17 87/54 87 06/20/16 08:55 Nasal Cannula 3.00 06/20/16 08:53 92 Nasal Cannula 4.00 I/O 5/106/20/16 06/20/16 06/21/16 06/21/16 06/21/16 07:00 15:00 23:00 07:00 15:00 23:00 Intake Total 550 ml 480 ml 440 ml Output Total 450 ml 800 ml Balance 550 ml 30 ml -360 ml Intake Oral 450 ml 480 ml 440 ml IV Total 0 ml 0 ml 0 ml Albumin 100 ml Output Urine Total 450 ml 800 ml # Voids 3 # Bowel Movements 3 0 0 Result Diagram: 06/21/16 0512 Imaging Last Impressions Chest X-Ray 06/21/16 0000 Signed Impressions: Service Date/Time: Tuesday, June 21, 2016 00:51 - CONCLUSION: 1. Increasing bibasilar atelectasis versus pneumonia and effusions 2. Right upper lobe pneumonia new when compared to prior study Jamaal Eastman MD Abdomen Ultrasound 06/17/16 0000 Signed Impressions: Service Date/Time: Friday, June 17, 2016 10:00 - CONCLUSION: There is not enough fluid for safe paracentesis.. Harish Chaudhary MD FACR Thoracentesis Ultrasound 06/16/16 0000 Signed Impressions: Service Date/Time: May 14:13 - CONCLUSION: Uncomplicated ultrasound guided thoracentesis. Qasim Osuna MD Hepatobiliary Scan Nuclear Medicine 06/10/16 0000 Signed Impressions: Service Date/Time: Friday, June 10, 2016 12:50 - CONCLUSION: 1. Scintigraphic findings suggesting hepatocellular dysfunction with sluggish washout and persistent background activity. 2. Due to limited excretion, it is difficult to identify the extrahepatic biliary tree. However, activity is seen in the small bowel by 10 minutes. 3. No scintigraphic findings of acute cholecystitis. Bob Lara MD Cholangiopancreatography MRI 06/10/16 0000 Signed Impressions: Service Date/Time: Friday, June 10, 2016 12:25 - CONCLUSION: 1. Hepatosplenomegaly with significantly and inhomogeneously fatty infiltrated liver. 2. Slight ascites and bilateral pleural effusions. 3. Cholelithiasis and pericholecystic fluid and cholecystitis is not excluded. Mert Laurent MD Procedures 06/16- thoracentesis 500 cc out- transudate Other Results Laboratory Tests Test 406/19/16 06/21/16 14:55 04:17 05:12 Pleural Fluid Total Protein 0.5 GM/DL Pleural Fluid LDH 74 U/L Pleural Fluid Glucose 104 MG/DL Pleural Fluid Amylase LESS THAN 2 U/L Phosphorus Level 1.4 MG/DL Sodium Level 137 MEQ/L Potassium Level 4.8 MEQ/L Chloride Level 105 MEQ/L Carbon Dioxide Level 22.5 MEQ/L Anion Gap 10 MEQ/L Blood Urea Nitrogen LESS THAN 1 MG/DL Creatinine 0.51 MG/DL Estimat Glomerular Filtration 139 ML/MIN Rate Random Glucose 129 MG/DL Calcium Level 8.1 MG/DL Magnesium Level 1.9 MG/DL Objective Remarks GENERAL: NO acute distress. SKIN: Warm and dry. HEAD: Atraumatic. Normocephalic. EYES: Pupils equal and round. No scleral icterus. No injection or drainage. ENT: No nasal bleeding or discharge. Mucous membranes pink and moist. NECK: Trachea midline. No JVD. CARDIOVASCULAR: Regular rate and rhythm. tachycardic. RESPIRATORY: Decreased breath sounds bilateral. no wheezing or crackles. GASTROINTESTINAL: Abdomen soft, non-tender, moderate distension. MUSCULOSKELETAL: Extremities without clubbing, cyanosis, pedal edema. NEUROLOGICAL: Awake and alert. No obvious cranial nerve deficits. PSYCHIATRIC: Appropriate mood and affect; insight and judgment normal Medications and IVs Current Medications Medications (Trade) Dose Ordered Sig/Deni Route Start Time Stop Time Status Last Admin (TRENtal SR) 400 mg Q8HR PO 06/10/16 14:00 06/21/16 05:34 Miscellaneous Information 1 Q361D XX 06/10/16 12:30 (Chlorhexidine 2% Cloth) Taper DAILY@04 TOP 06/11/16 04:00 06/07/17 03:59 06/10/16 19:57 (Chlorhexidine 2% Cloth) 3 pack UNSCH PRN TOP 06/10/16 12:30 06/10/16 19:57 (Vitamin B1) 100 mg DAILY PO 06/10/16 12:30 06/21/16 08:03 (Folate) 1 mg DAILY PO 06/10/16 12:30 06/21/16 08:04 (Theragran) 1 tab DAILY PO 06/10/16 12:30 06/21/16 08:03 (D50w (Vial) Inj) 25 ml UNSCH PRN IV PUSH 06/10/16 13:00 (Glucagon Inj) 1 mg UNSCH PRN OTHER 06/10/16 13:00 (NovoLIN R SUPPLEMENTAL SCALE) 1 Q6HR SQ 06/10/16 13:00 06/19/16 12:30 (NS Flush) 2 ml UNSCH PRN IV FLUSH 06/10/16 18:45 (NS Flush) 2 ml BID IV FLUSH 06/10/16 21:00 06/21/16 08:04 (Romazicon Inj) 0.2 mg Q1M PRN IV PUSH 06/10/16 18:45 (K-Phos) 500 mg DAILY PO 06/12/16 09:00 06/21/16 08:04 (Oscal) 500 mg BID PO 06/12/16 09:00 06/21/16 08:04 (Mag-Ox) 400 mg BID PO 06/12/16 09:00 06/21/16 08:03 (Xifaxan) 550 mg BID PO 06/12/16 21:00 06/21/16 08:03 (KCl) 30 meq Q12HR PO 06/13/16 09:00 06/21/16 08:03 (Protonix) 40 mg DAILY PO 06/16/16 09:00 06/21/16 08:03 (Mucinex Er) 600 mg BID PO 06/18/16 09:15 06/21/16 08:03 (Zofran Inj) 4 mg Q6HR PRN IV PUSH 06/18/16 22:15 06/20/16 16:53 (Benadryl) 25 mg Q6H PRN PO 06/19/16 17:00 (Albumin 25% Inj) 25 gm Q12H IV 06/20/16 09:00 06/21/16 08:59 06/20/16 21:54 (Ativan) 0.5 mg Q8HR PRN PO 06/20/16 09:15 06/20/16 09:39 ([place] 5-325 Mg) 1 tab Q6H PRN PO 06/20/16 17:00 06/21/16 06:11 (Levaquin) 750 mg Q24H PO 06/21/16 06:00 06/21/16 05:34 A/P Assessment and Plan 1. Electrolyte derangement status post replacement, Hypophosphatemia replaced. 2. Right pleural effusion status post Thoracentesis, transudate likely from liver cirrhosis. echo EF 60%. 3. Gram + bacteremia contaminant, ID followed and no need for antibiotics were discontinued. Pneumonia on new CXR found possible Pneumonia started on Levaquin by art coordinator will continue present care and follow. may need new blood cultures. 4. Alcoholic Hepatitis Ascites on Exam US shows minimal fluid, CIWA protocol. 5. SIRS no need for antibiotics as per ID specialist. 6. Hypoalbuminemia secondary to basal pathology will give Albumin two doses to improve symptoms. temporarily. 7. Respiratory Failure ABGs showing Alkalotic respiratory insufficiency. transferred to Intensive Care Unit worsened after she was working with Physical Therapy. police specialist following. transfer to Intensive care unit. I had the pleasure to talk about the case with Doctor Alvaro Kyle appreciated assistance. CM consult DVT prophylaxis Discharge Planning once cleared by specialists Tai Huerta MD June 21, 2016 08:34
[2016-06-21 13:07] LABS: BLOOD GAS BASE EXCESS -0.5 mmol/L (-2-2); BLOOD GAS CARBOXYHEMOGLOBIN 1.6 % (0-4); BLOOD GAS HCO3 23 mmol/L (22-26); BLOOD GAS METHEMOGLOBIN 0.6 % (0-2); BLOOD GAS O2 HGB SATURATION 91 % (90-100); BLOOD GAS OXYGEN CONTENT 12.3 Vol % (12.0-20.0); BLOOD GAS PCO2 30 mmHg (38-42); BLOOD GAS PO2 66 mmHg (61-120); BLOOD GAS TOTAL HGB 9.6 G/DL (12.0-16.0); CRITICAL VALUE NO; DRAW SITE LT RADIAL; LITER FLOW 15 L/M; NUMBER OF ARTERIAL PUNCTURES 2; OXYGEN DEVICE NRB; TEMP CORR TO 98.6; ULNAR PULSE PRESENT
[2016-06-21 13:08] LABS: STAT YES
--- NOTE | 2016-06-21 13:25 | RADRPT ---
EXAM DATE/TIME: 06/21/2016 12:58 [facility] COMPARISON: CHEST SINGLE AP, June 21, 2016, 0:51. INDICATIONS : Short of breath MEDICAL HISTORY : pneumonia SURGICAL HISTORY : None. ENCOUNTER: Subsequent ACUITY: 1 week PAIN SCORE: 0/10 LOCATION: Bilateral chest FINDINGS: Patchy infiltrates are noted bilaterally consistent with pneumonia versus pulmonary edema. Clinical correlation is recommended. Small bilateral pleural effusions are noted. The heart is stable. CONCLUSION: 1. Patchy infiltrates bilaterally consistent with pulmonary edema versus pneumonia. Clinical correl ation is recommended. 2. Small bilateral pleura effusions. Juan Leblanc MD on June 21, 2016 at 13:18 Board Certified Radiologist. This report was verified electronically.
[2016-06-21] MEDS ORDERED: FUROSEMIDE 40 MG/4 ML VIAL ONE (13:36)
[2016-06-21] MEDS ORDERED: FUROSEMIDE 100 MG/10 ML VIAL IV PUSH ONE (14:00)
[2016-06-21] MEDS ORDERED: ALBUMIN HUMAN 25% 25 GM/100 ML BAGP IV ONE ×2 (14:00→21:45)
[2016-06-21] MEDS ORDERED: cefTRIAXone 1,000 MG/NS 100 ML IV SCH ×2 (14:00)
[2016-06-21] MEDS ORDERED: AZITHROMYCIN 500 MG/NS 250 ML IV SCH ×2 (15:00)
[2016-06-21] MEDS ORDERED: CHLORHEXIDINE GLUCONATE 2 % 1 PACK (2 CLOTHS)(extra cloths) TOPICAL PRN (15:15)
--- NOTE | 2016-06-21 19:12 | HHI.PR ---
Subjective Remarks 31 YOWF with ETOH use, sob, pl eff no CP Become more sob, hypoxic tr to IMC CXR pl effusion, RUL infilt INR1.9 Breathing better now. Objective Vital Signs Vital Signs Date Time Temp Pulse Resp B/P Pulse Ox O2 Delivery O2 Flow Rate FiO2 06/21/16 16:00 97.3 119 20 106/66 96 06/21/16 12:00 96.7 117 16 98/61 90 06/21/16 08:12 94 Simple Mask 8.00 06/21/16 08:00 96.7 122 17 99/70 92 06/21/16 07:00 Nasal Cannula 3.00 06/21/16 06:14 92 Simple Mask 8.00 06/21/16 06:03 91 Venturi Mask 6.00 50 06/21/16 00:16 88 4.00 06/21/16 00:00 97.6 116 22 118/66 92 06/20/16 21:00 Nasal Cannula 3.00 06/20/16 20:26 97 Nasal Cannula 4.00 06/20/16 20:00 98.2 111 20 100/62 94 I/O 06/20/16 06/20/16 06/20/16 06/21/16 06/21/16 06/21/16 07:00 15:00 23:00 07:00 15:00 23:00 Intake Total 550 ml 480 ml 440 ml Output Total 450 ml 800 ml 300 ml 600 ml Balance 550 ml 30 ml -360 ml -300 ml -600 ml Intake Oral 450 ml 480 ml 440 ml IV Total 0 ml 0 ml 0 ml Albumin 100 ml Output Urine Total 450 ml 800 ml 300 ml 600 ml # Voids 3 # Bowel Movements 3 0 0 Result Diagram: 06/21/16 0512 Objective Remarks GENERAL: MBMN WF,NAD SKIN: Warm and dry. HEAD: Normocephalic. EYES: No scleral icterus. No injection or drainage. NECK: Supple, trachea midline. No JVD or lymphadenopathy. CARDIOVASCULAR: Regular rate and rhythm without murmurs, gallops, or rubs. RESPIRATORY: Breath sounds equal bilaterally. No accessory muscle use. GASTROINTESTINAL: Abdomen soft, non-tender, nondistended. MUSCULOSKELETAL: No cyanosis, or edema. BACK: Nontender without obvious deformity. No CVA tenderness. A/P Assessment and Plan Resp insuff Hypoxia, less likly PE, INR1.9 RUL infilt Pleural effusion, s/p TC Alcohlic hepatitis ETOH use Nicotine use PLAN: PRM Keep sat >90% Cont Abx Monitor pl effusion If increase in effusion, will need TC again Tomi Mckeon MD June 21, 2016 19:12
--- NOTE | 2016-06-21 22:05 | PD.CONS ---
[facility] Service Critical Care Medicine Consult Requested By rapid response team Reason for Consult hypoxia Primary Care Physician Iggy Tamayo M.D. History of Present Illness This is a 31-year-old female without prior past medical history who initially presented to the hospital on 06/10 complaining of shortness of breath. At that time she was found to have end-stage liver disease which is being worked up. During his hospital admission she underwent drainage of pleural effusion for hypoxia. She presented in rapid response from the floor for worsening hypoxia. When I evaluated the patient on her arrival to the intensive care unit she was tach state on her cell phone and appeared in no apparent distress. However , she was significantly hypoxic with SPO2 of 85% on a nonrebreather. Despite the fact that she did not appear in distress, she did have trouble speaking in complete sentences, and was quite dyspneic on my evaluation. This limited the amount of history was able to obtain from her. She did state this was similar to her presenting shortness of breath almost a week ago. She denies any associated symptoms, and denies any changes today compared to prior days. Her chest x-ray does appear to have significant pulmonary edema with associated bilateral pleural effusions. Her BNP was elevated a few days ago and it is difficult to assess her volume status given that she has not had strict I's and O's. She does appear to be up 8 kg from admission weight. Review of Systems ROS Limitations: Clinical Condition Constitutional: DENIES: Fatigue, Fever, Chills Cardiovascular: DENIES: Chest pain Gastrointestinal: DENIES: Abdominal pain, Nausea, Vomiting ROS The patient's dyspnea limits her ability to complete a full review of systems. Past Family Social History Allergies: Coded Allergies: No Known Allergies (Unverified , 06/10/16) Past Medical History Complete medical history is unable to be obtained secondary to patient's dyspnea. Per chart review, only positive for her liver failure on admission Past Surgical History Prior right knee arthroscopy Reported Medications No home medications Active Ordered Medications See MAR Family History Unknown past family history, she grew up in a foster program Social History Per chart review, she drinks a pint of vodka daily for the past 3-4 years Physical Exam Vital Signs Vital Signs Date Time Temp Pulse Resp B/P Pulse Ox O2 Delivery O2 Flow Rate FiO2 06/21/16 20:03 89 Partial Rebreather 13.00 06/21/16 20:00 88 Partial Non-Rebreather 13.00 06/21/16 16:00 97.3 119 20 106/66 96 06/21/16 12:00 96.7 117 16 98/61 90 06/21/16 08:12 94 Simple Mask 8.00 06/21/16 08:00 96.7 122 17 99/70 92 06/21/16 07:00 Nasal Cannula 3.00 06/21/16 06:14 92 Simple Mask 8.00 06/21/16 06:03 91 Venturi Mask 6.00 50 06/21/16 00:16 88 4.00 06/21/16 00:00 97.6 116 22 118/66 92 Physical Exam GENERAL: young female, sitting in bed HEENT: nc. at. perrl. mucous membranes moist. NECK: NRB in place. no jvd. CHEST: tachypneic. bilateral coarse rales. CARDIOVASCULAR: tachycardic rate, regular rhythm. no appreciable murmurs ABDOMEN: soft, nontender, nondistended. no guarding. MUSCULOSKELETAL: no peripheral edema. distal pulses 2+ NEUROLOGICAL: RASS 0. GCS 15. follows commands. Laboratory Laboratory Tests Test 06/21/16 06/21/16 06/21/16 05:12 13:00 13:30 Sodium Level 137 Potassium Level 4.8 Chloride Level 105 Carbon Dioxide Level 22.5 Anion Gap 10 Blood Urea Nitrogen LESS THAN 1 Creatinine 0.51 Estimat Glomerular Filtration 139 Rate Random Glucose 129 Calcium Level 8.1 Magnesium Level 1.9 Blood Gas Puncture Site LT RADIAL Blood Gas Patient Temperature 98.6 Blood Gas HCO3 23 Blood Gas Base Excess -0.5 Blood Gas Oxygen Saturation 91 Arterial Blood pH 7.48 Arterial Blood Partial 30 Pressure CO2 Arterial Blood Partial 66 Pressure O2 Arterial Blood Oxygen Content 12.3 Arterial Blood 1.6 Carboxyhemoglobin Arterial Blood Methemoglobin 0.6 Blood Gas Hemoglobin 9.6 Oxygen Delivery Device NRB Blood Gas Liter Flow 15 Nasal Screen MRSA (PCR) MRSA NOT DETECTED Result Diagram: 06/21/16 0512 Imaging Last Impressions Chest X-Ray 06/21/16 0000 Signed Impressions: Service Date/Time: Tuesday, June 21, 2016 12:58 - CONCLUSION: 1. Patchy infiltrates bilaterally consistent with pulmonary edema versus pneumonia. Clinical correlation is recommended. 2. Small bilateral pleura effusions. Juan Leblanc MD Abdomen Ultrasound 06/17/16 0000 Signed Impressions: Service Date/Time: Friday, June 17, 2016 10:00 - CONCLUSION: There is not enough fluid for safe paracentesis.. Harish Chaudhary MD FACR Thoracentesis Ultrasound 06/16/16 0000 Signed Impressions: Service Date/Time: May 14:13 - CONCLUSION: Uncomplicated ultrasound guided thoracentesis. Qasim Osuna MD Abdomen/Pelvis CT 06/10/16 0651 Signed Impressions: Service Date/Time: Friday, June 10, 2016 07:22 - CONCLUSION: 1. Enlarged fatty liver. 2. Mild splenomegaly. 3. Small to moderate amount of ascites within the abdomen and pelvis. 4. Small right pleural effusion. 5. Small hiatal hernia. 6. Cholelithiasis. Juan Leblanc MD Hepatobiliary Scan Nuclear Medicine 06/10/16 0000 Signed Impressions: Service Date/Time: Friday, June 10, 2016 12:50 - CONCLUSION: 1. Scintigraphic findings suggesting hepatocellular dysfunction with sluggish washout and persistent background activity. 2. Due to limited excretion, it is difficult to identify the extrahepatic biliary tree. However, activity is seen in the small bowel by 10 minutes. 3. No scintigraphic findings of acute cholecystitis. Bob Lara MD Cholangiopancreatography MRI 06/10/16 0000 Signed Impressions: Service Date/Time: Friday, June 10, 2016 12:25 - CONCLUSION: 1. Hepatosplenomegaly with significantly and inhomogeneously fatty infiltrated liver. 2. Slight ascites and bilateral pleural effusions. 3. Cholelithiasis and pericholecystic fluid and cholecystitis is not excluded. Mert Laurent MD Assessment and Plan Assessment and Plan Assessment: 31yF with new diagnosis of Liver disease and now hypoxia. Differential could include worsening of her pneumonia versus pulmonary edema, volume overload, versus hepatopulmonary syndrome. Primary team has already ordered CT chest, and I agree with this. I will also order a limited 2-D echocardiogram with special request for bubble study particularly looking at delayed intrapulmonary shunt as a diagnosis for hepatopulmonary syndrome. For now, despite her hypoxemia, I do not think she requires intubation, as her SPO2 to his improved to 90-94%. Certainly if she decompensates, I think we should proceed with intubation and mechanical ventilation. In addition, I think she is overall volume overloaded, although I'm not sure how much of this volume is in her intravascular space. We will attempt gentle diuresis with accommodation of Lasix and concentrated albumen to preserve intravascular volume. Active problems: Acute hypoxemia Acute hypoxic respiratory distress Volume overload Possible pulmonary edema Possible pneumonia Possible hepatopulmonary syndrome Plan: Continue nonrebreather, and wean FiO2 as tolerated for goal SPO2 greater than 80% CT chest Continue antibiotics Lasix 40 mg IV 1 with 25 g of concentrated albumen. We will consider re- dosing this in 6 hours. Goal net -1 L diuresis Limited 2-D echocardiogram with bubble study, particularly looking for delayed intrapulmonary shunt Saline lock IV fluids This patient remains critically ill with one or more organ systems which are or may become a threat to life. I have spent in excess of 39 minutes discontinuously in the care and management of this patient. This time is exclusive of procedures, and includes, but is not limited to, evaluation of the patient, review of the medical record, discussions with family, consultants, nursing staff, or respiratory therapy, and documentation in the medical record. Alvaro Kyle MD June 21, 2016 22:05
--- NOTE | 2016-06-21 22:38 | RADRPT ---
EXAM DATE/TIME: 06/21/2016 21:50 [facility] COMPARISON: CHEST SINGLE AP, June 21, 2016, 12:58. INDICATIONS : Shortness of breath. RADIATION DOSE: 5.22 CTDIvol (mGy) MEDICAL HISTORY : Pneumonia SURGICAL HISTORY : None. ENCOUNTER: Subsequent ACUITY: 1 week PAIN SCALE: 0/10 LOCATION: Bilateral chest TECHNIQUE: Volumetric scanning of the chest was performed. Using automated exposure control and adjustment of the mA and/or kV according to patient size, radiation dose was kept as low as reasonab ly achievable to obtain optimal diagnostic quality images. FINDINGS: There are areas of consolidation throughout the lower lobes bilaterally. There are also areas of increased consolidation in the upper lobes bilaterally being more prominent on the right. There is some minimal patchy density identified at the left lingula. There is relative sparing of th e right middle lobe. There are mild bilateral pleural effusions. Significant adenopathy is not addison rly appreciated. There is a mild amount of ascites seen around the liver and spleen. CONCLUSION: Widespread areas of consolidation involving the lower lobes bilaterally and the upper lobes bilaterally. This is nonspecific. It could be infectious. There are moderate bilateral pleur al effusions and mild ascites. Qasim Phillips MD on June 21, 2016 at 22:24 Board Certified Radiologist. This report was verified electronically.
[2016-06-21 23:47] LABS: BLOOD, URINE NEG (NEG); COMMENT (UR) CATH-CULT NOT IND; CULTURE IF INDICATED CATH CULTURE NOT IND; GLUCOSE,URINE NEG (NEG); HYALINE CAST, URINE 11 /lpf (RARE); KETONE, URINE NEG (NEG); MUCUS URINE FEW /lpf (OCC); NITRITE,URINE NEG (NEG); PH, URINE 5.5 (5.0-8.5); SQUAMOUS EPITHELIAL CELL URINE <1 /hpf (0-5); URINE COLOR YELLOW (YELLW/STRAW)
[2016-06-22] VITALS (18 sets, daily range): BP systolic 96–114; BP diastolic 54–74; PULSE 118–133; RESP 20–28; TEMP 96.9–98.8; O2SAT 85–99
[2016-06-22 00:18] LABS: HEMATOCRIT 29.7 % (35.0-46.0); MEAN CELL VOLUME 104.3 FL (80.0-100.0); MEAN CORPUSCULAR HEMOGLOBIN 33.8 PG (27.0-34.0); MEAN CORPUSCULAR HGB CONC 32.4 % (32.0-36.0); PLATELET COUNT 208 TH/MM3 (150-450); RED BLOOD COUNT 2.85 MIL/MM3 (4.00-5.30); RED CELL DISTRIBUTION WIDTH 15.5 % (11.6-17.2); REVIEW FLAG FINAL; WHITE BLOOD COUNT 21.2 TH/MM3 (4.0-11.0)
[2016-06-22] MEDS: LORazepam 0.5 MG TAB PO PRN ×2 (02:54→21:00)
[2016-06-22] MEDS: ACETAMINOPHEN/HYDROcodone 325 MG/5 MG TAB PO PRN ×2 (02:54→19:28)
[2016-06-22] MEDS: RESP: IPRATROPIUM 0.5 MG/2.5 ML NEB NEB SCH ×6 (03:33→23:36)
[2016-06-22] MEDS: CHLORHEXIDINE GLUCONATE 2 % 1 PACK (2 CLOTHS)(taper/protocol) TOPICAL SCH (04:00)
[2016-06-22 04:17] LABS: HEMATOCRIT 27.9 % (35.0-46.0); MEAN CELL VOLUME 106.1 FL (80.0-100.0); MEAN CORPUSCULAR HEMOGLOBIN 33.8 PG (27.0-34.0); MEAN CORPUSCULAR HGB CONC 31.9 % (32.0-36.0); PLATELET COUNT 205 TH/MM3 (150-450); RED BLOOD COUNT 2.63 MIL/MM3 (4.00-5.30); RED CELL DISTRIBUTION WIDTH 15.9 % (11.6-17.2); REVIEW FLAG FINAL; WHITE BLOOD COUNT 20.3 TH/MM3 (4.0-11.0)
[2016-06-22 04:41] LABS: BICARBONATE 26.8 MEQ/L (21.0-32.0)
[2016-06-22 04:43] LABS: INDIRECT BILIRUBIN 1.7 MG/DL (0.0-0.8); TOTAL BILIRUBIN ADULT 4.1 MG/DL (0.2-1.0)
[2016-06-22] MEDS: PENTOXIFYLLINE 400 MG CONTROLLED RELEASE TAB PO SCH ×3 (05:46→21:00)
[2016-06-22] MEDS: LEVOFLOXACIN 750 MG TAB PO SCH (05:46)
[2016-06-22] MEDS: INSULIN NovoLIN REGULAR SUPPLEMENTAL SCALE SQ SCH ×4 (05:49→18:00)
[2016-06-22 07:11] LABS: INTERNATIONAL NORMALIZED RATIO 1.9 RATIO
[2016-06-22] MEDS: RESP: BUDESONIDE 0.5 MG/2 ML NEB NEB SCH ×2 (07:58→20:56)
[2016-06-22] MEDS: MAGNESIUM OXIDE 400 MG TAB PO SCH (08:49)
[2016-06-22] MEDS: RIFAXIMIN 550 MG TAB PO SCH ×2 (08:50→20:30)
[2016-06-22] MEDS: PANTOPRAZOLE SOD 40 MG DELAYED RELEASE TAB PO SCH (08:50)
[2016-06-22] MEDS: POTASSIUM CHLORIDE 10 MEQ CONTROLLED RELEASE TAB PO SCH (08:50)
[2016-06-22] MEDS: POTASSIUM PHOSPHATE MONOBASIC 500 MG TAB PO SCH (08:50)
[2016-06-22] MEDS: THIAMINE HCL 100 MG TAB PO SCH (08:50)
[2016-06-22] MEDS: guaiFENesin E.R. 600 MG TAB PO SCH ×2 (08:50→20:29)
[2016-06-22] MEDS: CALCIUM CARBONATE 1.25 GM (CA 500 MG) TAB PO SCH ×2 (08:50→20:29)
[2016-06-22] MEDS: SODIUM CHLORIDE 0.9% FLUSH 10 ML FLUSH IV FLUSH SCH ×2 (08:51→20:29)
[2016-06-22] MEDS: MULTIVITAMIN TAB PO SCH (08:51)
[2016-06-22] MEDS: FOLIC ACID 1 MG TAB PO SCH (08:51)
--- NOTE | 2016-06-22 10:12 | HHI.CCPN ---
Subjective Remarks/Hospital Course This is a 31-year-old female without prior past medical history who initially presented to the hospital on 06/10 complaining of shortness of breath. At that time she was found to have end-stage liver disease which is being worked up. During his hospital admission she underwent drainage of pleural effusion for hypoxia. She presented in rapid response from the floor for worsening hypoxia. When I evaluated the patient on her arrival to the intensive care unit she was tach state on her cell phone and appeared in no apparent distress. However , she was significantly hypoxic with SPO2 of 85% on a nonrebreather. Despite the fact that she did not appear in distress, she did have trouble speaking in complete sentences, and was quite dyspneic on my evaluation. This limited the amount of history was able to obtain from her. She did state this was similar to her presenting shortness of breath almost a week ago. She denies any associated symptoms, and denies any changes today compared to prior days. Her chest x-ray does appear to have significant pulmonary edema with associated bilateral pleural effusions. Her BNP was elevated a few days ago and it is difficult to assess her volume status given that she has not had strict I's and O's. She does appear to be up 8 kg from admission weight. Subjective 06/22: Currently on high flow nasal cannula. Negative PFO on KARAN today. Appears comfortable. Bilateral infiltrates CT Chest Yesterday.. Still feels short of breath.. Received 120 mg IV Lasix last night Objective Vital Signs Date Time Temp Pulse Resp B/P Pulse Ox O2 Delivery O2 Flow Rate FiO2 06/22/16 07:58 92 Partial Rebreather 15.00 06/22/16 06:00 118 06/22/16 04:00 96.9 20 99/61 06/22/16 03:59 50 Intake and Output 06/21/16 06/21/16 06/22/16 08:00 16:00 00:00 Intake Total 440 ml 750 ml Output Total 800 ml 900 ml 400 ml Balance -360 ml -900 ml 350 ml Result Diagram: 06/22/16 0330 06/22/16 0330 Imaging Last Impressions Chest X-Ray 06/21/16 0000 Signed Impressions: Service Date/Time: Tuesday, June 21, 2016 12:58 - CONCLUSION: 1. Patchy infiltrates bilaterally consistent with pulmonary edema versus pneumonia. Clinical correlation is recommended. 2. Small bilateral pleura effusions. Juan Leblanc MD Chest CT 06/21/16 0000 Signed Impressions: Service Date/Time: Tuesday, June 21, 2016 21:50 - CONCLUSION: Widespread areas of consolidation involving the lower lobes bilaterally and the upper lobes bilaterally. This is nonspecific. It could be infectious. There are moderate bilateral pleural effusions and mild ascites. Qasim Phillips MD Abdomen Ultrasound 06/17/16 0000 Signed Impressions: Service Date/Time: Friday, June 17, 2016 10:00 - CONCLUSION: There is not enough fluid for safe paracentesis.. Harish Chaudhary MD FACR Thoracentesis Ultrasound 06/16/16 0000 Signed Impressions: Service Date/Time: May 14:13 - CONCLUSION: Uncomplicated ultrasound guided thoracentesis. Qasim Osuna MD Abdomen/Pelvis CT 06/10/16 0651 Signed Impressions: Service Date/Time: Friday, June 10, 2016 07:22 - CONCLUSION: 1. Enlarged fatty liver. 2. Mild splenomegaly. 3. Small to moderate amount of ascites within the abdomen and pelvis. 4. Small right pleural effusion. 5. Small hiatal hernia. 6. Cholelithiasis. Juan Leblanc MD Hepatobiliary Scan Nuclear Medicine 06/10/16 0000 Signed Impressions: Service Date/Time: Friday, June 10, 2016 12:50 - CONCLUSION: 1. Scintigraphic findings suggesting hepatocellular dysfunction with sluggish washout and persistent background activity. 2. Due to limited excretion, it is difficult to identify the extrahepatic biliary tree. However, activity is seen in the small bowel by 10 minutes. 3. No scintigraphic findings of acute cholecystitis. Bob Lara MD Cholangiopancreatography MRI 06/10/16 0000 Signed Impressions: Service Date/Time: Friday, June 10, 2016 12:25 - CONCLUSION: 1. Hepatosplenomegaly with significantly and inhomogeneously fatty infiltrated liver. 2. Slight ascites and bilateral pleural effusions. 3. Cholelithiasis and pericholecystic fluid and cholecystitis is not excluded. Mert Laurent MD Objective Remarks GENERAL: 31-year-old female, critically ill currently resting in bed on high flow nasal cannula SKIN: Warm and dry. No rash HEAD: Atraumatic. Normocephalic. EYES: Pupils equal and round about 2-3 mm bilaterally and reactive. No scleral icterus. No injection or drainage. ENT: No nasal bleeding or discharge. Mucous membranes pink and moist. NECK: Trachea midline. No JVD. CARDIOVASCULAR: Tachycardic, RR. S1, [id number] murmur, clicks, gallops or rubs RESPIRATORY: Coarse crackles appreciated throughout lung dean. Diminished at bases. No wheeze GASTROINTESTINAL: Abdomen soft, non-tender, somewhat protuberant. Hypoactive bowel sounds appreciated MUSCULOSKELETAL: Extremities with trace lower extremity edema. No obvious deformities. NEUROLOGICAL: Awake and alert. No obvious cranial nerve deficits. Motor grossly within normal limits. Five out of 5 muscle strength in the arms and legs. Normal speech. PSYCHIATRIC: Appropriate mood and affect; insight and judgment normal. Procedures 06/16- thoracentesis 500 cc out- transudate A/P Assessment and Plan Neuro/Psych: EtOH Continue thiamine folate and multivitamin daily Ativan 0.5 every 8 hours when necessary anxiety [place] for pain CV: Patient is currently hemodynamically stable currently not requiring vasopressors and/or antihypertensives Resp: Acute hypoxemic respiratory failure Currently on high flow nasal cannula FiO2 80% 40 L to maintain saturations greater than equal to 92% CT chest - bilateral infiltrates right upper greater than left upper and bilateral lower lobes, mild bilateral pleural effusions Currently on Pulmicort twice a day/Atrovent nebs every 4 hours Will add easy Pap every 4 hours Status post thoracentesis 800 cc transudative right side 06/16 - GI: Cholelithiasis Abdominal ascites Elevated transaminases Elevated bilirubin Elevated anti-1 antitrypsin 06/10 - MRCP - hepatosplenomegaly. - Ascites - cannot rule out cholecystitis 06/10 - HIDA scan - negative for cholecystitis Seen by gastroenterology. Negative hepatitis, AMA, ASMA, AMA and ceruloplasmin. Had signed off Currently on regular diet Follow hepatic profile in AM. Monitor Continue pentoxifylline 400 mg by mouth 3 times a day : Replaced for accurate I's and O's in a critically ill patient Endo: Sliding scale insulin if indicated to maintain euglycemia Renal: Monitor renal function daily Accurate I's and O's Monitor urine output Heme: Leukocytosis Macrocytic anemia Follow CBC daily. Monitor trends ID: We'll start on empiric antibiotics Pertinent cultures 06/10 - blood cultures 4 - 1 out of 4 Prop Acnes FEN: Hypophosphatemia Replace electrolytes as clinically indicated Patient is scheduled potassium and magnesium and phosphorus daily. Reassess today MSK: PT evaluate and treat Currently on Os-Zac twice a day Access - Utilize peripheral IV. Central line if indicated Prophylaxis - GI - Protonix - DVT - SCD/heparin subcutaneous Critical Care: The total critical care time was 55 minutes. Time to perform other separately billable procedures was not included in the critical care time. Active problems: Acute hypoxemia Acute hypoxic respiratory distress Volume overload Possible pulmonary edema Possible pneumonia Possible hepatopulmonary syndrome Plan: Continue nonrebreather, and wean FiO2 as tolerated for goal SPO2 greater than 80% CT chest Continue antibiotics Lasix 40 mg IV 1 with 25 g of concentrated albumen. We will consider re- dosing this in 6 hours. Goal net -1 L diuresis Limited 2-D echocardiogram with bubble study, particularly looking for delayed intrapulmonary shunt Saline lock IV fluids This patient remains critically ill with one or more organ systems which are or may become a threat to life. I have spent in excess of 39 minutes discontinuously in the care and management of this patient. This time is exclusive of procedures, and includes, but is not limited to, evaluation of the patient, review of the medical record, discussions with family, consultants, nursing staff, or respiratory therapy, and documentation in the medical record. Wang Jacobs MD June 22, 2016 10:12
[2016-06-22] MEDS ORDERED: MULTIVITAMIN TAB PO ONE (10:30)
--- NOTE | 2016-06-22 10:31 | ECHLIM ---
Study Study Date:06/22/2016 STUDY CONCLUSIONS SUMMARY - Study data: Transthoracic echocardiography. Limited 2D. - Left ventricle: Systolic function was normal. The estimated ejection fraction was in the range of 50% to 55%. Wall motion was normal; there were no regional wall motion abnormalities. - Atrial septum: Echo contrast study showed no intracardiac shunt. If LV function is below 40, please consider prescribing an ACEI or ARB or document rationale for non-use. PROCEDURE DATA Procedure: Transthoracic echocardiography. Image quality was good. Scanning was performed from the parasternal, apical, and subcostal acoustic windows. Study completion: The patient tolerated the procedure well. Transthoracic echocardiography. Limited 2D. Height: Height: 161in. CARDIAC ANATOMY LEFT VENTRICLE: Systolic function was normal. The estimated ejection fraction was in the range of 50% to 55%. Wall motion was normal; there were no regional wall motion abnormalities. ATRIAL SEPTUM: Echo contrast study showed no intracardiac shunt. BASIC MEASUREMENTS ADULT NORMAL Left ventricle Volume, ED, MOD, 1-plane 63 ml Volume, ES, MOD, 1-plane 26 ml Ejection fraction, MOD, 1-plane 59 % Stroke volume, MOD, 1-plane 37 ml Volume, ED, MOD, 2-plane 69 ml Volume, ES, MOD, 2-plane 29 ml Ejection fraction, MOD, 2-plane 58 % Stroke volume, MOD, 2-plane 40 ml LEGEND: Mean values are shown as u=mean value. Asterisk (*) zavala values outside specified normal range. Prepared and signed by Priyank Lowry [id number]
[2016-06-22 11:01] LABS: MAGNESIUM 1.8 MG/DL (1.5-2.5)
[2016-06-22] MEDS: MAGNESIUM SULFATE 1 GM PREMIX 100 ML IV SCH ×2 (14:09→15:36)
--- NOTE | 2016-06-22 20:03 | HHI.PR ---
Subjective Remarks 31 YOWF with ETOH use, sob, pl eff no CP Become more sob, hypoxic tr to IMC CXR pl effusion, RUL infilt On high flow 02 Dr. Willis following Objective Vital Signs Vital Signs Date Time Temp Pulse Resp B/P Pulse Ox O2 Delivery O2 Flow Rate FiO2 06/22/16 18:00 129 06/22/16 16:00 97.8 124 26 108/65 99 06/22/16 16:00 125 06/22/16 14:00 122 06/22/16 12:51 92 90 06/22/16 12:00 119 06/22/16 12:00 97.8 125 24 109/71 94 06/22/16 10:00 127 06/22/16 08:42 90 High Flow Nasal Cannula 20.00 80 06/22/16 08:00 120 06/22/16 08:00 97.3 120 26 96/54 89 06/22/16 07:58 92 Partial Rebreather 15.00 06/22/16 07:00 88 Partial Non-Rebreather 13.00 06/22/16 06:00 118 06/22/16 04:00 96.9 121 20 99/61 90 06/22/16 04:00 121 06/22/16 03:59 85 Venturi Mask 6.00 50 06/22/16 02:00 121 06/22/16 00:00 97.7 124 28 114/74 90 06/22/16 00:00 124 06/21/16 22:00 126 06/21/16 20:03 89 Partial Rebreather 13.00 I/O 06/21/16 06/21/16 06/21/16 06/22/16 06/22/16 06/22/16 07:00 15:00 23:00 07:00 15:00 23:00 Intake Total 440 ml 750 ml 300 ml 480 ml Output Total 800 ml 300 ml 1000 ml 1000 ml 240 ml Balance -360 ml -300 ml -250 ml -700 ml 240 ml Intake Oral 440 ml 500 ml 300 ml 480 ml IV Total 0 ml Albumin 250 ml Output Urine Total 800 ml 300 ml 1000 ml 1000 ml 240 ml # Bowel Movements 0 0 0 Result Diagram: 06/22/16 0330 06/22/16 0330 Objective Remarks GENERAL: MBMN WF,NAD SKIN: Warm and dry. HEAD: Normocephalic. EYES: No scleral icterus. No injection or drainage. NECK: Supple, trachea midline. No JVD or lymphadenopathy. CARDIOVASCULAR: Regular rate and rhythm without murmurs, gallops, or rubs. RESPIRATORY: Breath sounds equal bilaterally. No accessory muscle use. GASTROINTESTINAL: Abdomen soft, non-tender, nondistended. MUSCULOSKELETAL: No cyanosis, or edema. BACK: Nontender without obvious deformity. No CVA tenderness. A/P Assessment and Plan Resp insuff Hypoxia, less likly PE, INR1.9 RUL infilt Pleural effusion, s/p TC Alcohlic hepatitis ETOH use Nicotine use PLAN: High flow 02 Keep sat >90% Cont Abx Monitor pl effusion If increase in effusion, will need TC again Tomi Salcedo MD June 22, 2016 20:03
[2016-06-22] MEDS: ONDANSETRON HCL 4 MG/2 ML VIAL IV PUSH PRN (21:00)
[2016-06-23] VITALS (15 sets, daily range): BP systolic 89–112; BP diastolic 55–68; PULSE 116–130; RESP 20–29; TEMP 97.8–98.6; O2SAT 90–98
[2016-06-23] MEDS: ACETAMINOPHEN/HYDROcodone 325 MG/5 MG TAB PO PRN ×3 (02:15→20:02)
[2016-06-23] MEDS: CHLORHEXIDINE GLUCONATE 2 % 1 PACK (2 CLOTHS)(taper/protocol) TOPICAL SCH (04:00)
[2016-06-23 04:30] LABS: HEMATOCRIT 25.5 % (35.0-46.0); MEAN CELL VOLUME 104.3 FL (80.0-100.0); MEAN CORPUSCULAR HEMOGLOBIN 34.4 PG (27.0-34.0); MEAN CORPUSCULAR HGB CONC 32.9 % (32.0-36.0); PLATELET COUNT 187 TH/MM3 (150-450); RED BLOOD COUNT 2.44 MIL/MM3 (4.00-5.30); RED CELL DISTRIBUTION WIDTH 15.6 % (11.6-17.2); REVIEW FLAG FINAL; WHITE BLOOD COUNT 16.7 TH/MM3 (4.0-11.0)
[2016-06-23 04:34] LABS: APTT (PATIENT) 42.4 SEC (24.3-30.1); INTERNATIONAL NORMALIZED RATIO 1.8 RATIO; PROTHROMBIN TIME - PATIENT 20.5 SEC (9.8-11.6)
[2016-06-23] MEDS: RESP: IPRATROPIUM 0.5 MG/2.5 ML NEB NEB SCH ×6 (04:38→23:06)
[2016-06-23 04:40] LABS: POTASSIUM 3.8 MEQ/L (3.5-5.1)
[2016-06-23 04:41] LABS: INDIRECT BILIRUBIN 1.5 MG/DL (0.0-0.8); TOTAL BILIRUBIN ADULT 4.2 MG/DL (0.2-1.0)
[2016-06-23] MEDS: PENTOXIFYLLINE 400 MG CONTROLLED RELEASE TAB PO SCH ×3 (05:52→20:08)
[2016-06-23] MEDS: LEVOFLOXACIN 750 MG TAB PO SCH (05:52)
[2016-06-23] MEDS: INSULIN NovoLIN REGULAR SUPPLEMENTAL SCALE SQ SCH ×4 (05:55→19:29)
[2016-06-23] MEDS: RESP: BUDESONIDE 0.5 MG/2 ML NEB NEB SCH ×2 (07:28→19:40)
[2016-06-23] MEDS: MULTIVITAMIN TAB PO SCH ×2 (07:59→08:00)
[2016-06-23] MEDS: SODIUM CHLORIDE 0.9% FLUSH 10 ML FLUSH IV FLUSH SCH ×2 (07:59→20:03)
[2016-06-23] MEDS: CALCIUM CARBONATE 1.25 GM (CA 500 MG) TAB PO SCH ×2 (07:59→20:01)
[2016-06-23] MEDS: guaiFENesin E.R. 600 MG TAB PO SCH ×2 (07:59→20:03)
[2016-06-23] MEDS: RIFAXIMIN 550 MG TAB PO SCH ×2 (07:59→20:01)
[2016-06-23] MEDS: PANTOPRAZOLE SOD 40 MG DELAYED RELEASE TAB PO SCH (07:59)
[2016-06-23] MEDS: THIAMINE HCL 100 MG TAB PO SCH (07:59)
[2016-06-23] MEDS: FOLIC ACID 1 MG TAB PO SCH (07:59)
--- NOTE | 2016-06-23 09:04 | RADRPT ---
EXAM DATE/TIME: 06/23/2016 08:11 [facility] COMPARISON: CT THORAX W/O CONTRAST, June 21, 2016, 21:50. CHEST SINGLE AP, June 21, 2016, 12:58. INDICATIONS : Shortness of breath, chest pain. MEDICAL HISTORY : None. SURGICAL HISTORY : None. ENCOUNTER: Subsequent ACUITY: 2 weeks PAIN SCORE: 4/10 LOCATION: chest Midline. FINDINGS: Portable AP view of the chest demonstrates a normal-sized cardiac silhouette. Lungs are underinflated and there is bilateral upper lung zone airspace consolidation along with bibasilar pleural-parenchym al opacities. No pneumothorax is visualized. Bones demonstrate no acute finding. CONCLUSION: 1. Bilateral upper lobe airspace consolidation, mildly increased from the prior study. 2. Stable bibasilar opacities representing pleural effusion with associated volume loss and/or airspa ce consolidation. Qasim Osuna MD on June 23, 2016 at 8:59 Board Certified Radiologist. This report was verified electronically.
--- NOTE | 2016-06-23 09:30 | HHI.CCPN ---
Subjective Remarks/Hospital Course This is a 31-year-old female without prior past medical history who initially presented to the hospital on 06/10 complaining of shortness of breath. At that time she was found to have end-stage liver disease which is being worked up. During his hospital admission she underwent drainage of pleural effusion for hypoxia. She presented in rapid response from the floor for worsening hypoxia. When I evaluated the patient on her arrival to the intensive care unit she was tach state on her cell phone and appeared in no apparent distress. However , she was significantly hypoxic with SPO2 of 85% on a nonrebreather. Despite the fact that she did not appear in distress, she did have trouble speaking in complete sentences, and was quite dyspneic on my evaluation. This limited the amount of history was able to obtain from her. She did state this was similar to her presenting shortness of breath almost a week ago. She denies any associated symptoms, and denies any changes today compared to prior days. Her chest x-ray does appear to have significant pulmonary edema with associated bilateral pleural effusions. Her BNP was elevated a few days ago and it is difficult to assess her volume status given that she has not had strict I's and O's. She does appear to be up 8 kg from admission weight. 06/22: Currently on high flow nasal cannula. Negative PFO on KARAN today. Appears comfortable. Bilateral infiltrates CT Chest Yesterday.. Still feels short of breath.. Received 120 mg IV Lasix last night Subjective 06/23: Currently on partial nonrebreather. Intermittent BiPAP overnight. States she is short of breath but appears comfortable. Not tachypneic or using accessory muscles. Objective Vital Signs Date Time Temp Pulse Resp B/P Pulse Ox O2 Delivery O2 Flow Rate FiO2 06/23/16 07:28 98 Partial Rebreather 15.00 06/23/16 06:00 122 06/23/16 04:00 98.4 21 89/55 06/23/16 01:00 75 Intake and Output 06/22/16 06/22/16 06/23/16 08:00 16:00 00:00 Intake Total 300 ml 480 ml 814 ml Output Total 1000 ml 240 ml 300 ml Balance -700 ml 240 ml 514 ml Result Diagram: 06/23/16 0324 06/23/16 0324 Imaging Last Impressions Chest X-Ray 06/23/16 0000 Signed Impressions: Service Date/Time: June 08:11 - CONCLUSION: 1. Bilateral upper lobe airspace consolidation, mildly increased from the prior study. 2. Stable bibasilar opacities representing pleural effusion with associated volume loss and/or airspace consolidation. Qasim Osuna MD Chest CT 06/21/16 0000 Signed Impressions: Service Date/Time: Tuesday, June 21, 2016 21:50 - CONCLUSION: Widespread areas of consolidation involving the lower lobes bilaterally and the upper lobes bilaterally. This is nonspecific. It could be infectious. There are moderate bilateral pleural effusions and mild ascites. Qasim Phillips MD Abdomen Ultrasound 06/17/16 0000 Signed Impressions: Service Date/Time: Friday, June 17, 2016 10:00 - CONCLUSION: There is not enough fluid for safe paracentesis.. Harish Chaudhary MD FACR Thoracentesis Ultrasound 06/16/16 0000 Signed Impressions: Service Date/Time: May 14:13 - CONCLUSION: Uncomplicated ultrasound guided thoracentesis. Qasim Osuna MD Abdomen/Pelvis CT 06/10/16 0651 Signed Impressions: Service Date/Time: Friday, June 10, 2016 07:22 - CONCLUSION: 1. Enlarged fatty liver. 2. Mild splenomegaly. 3. Small to moderate amount of ascites within the abdomen and pelvis. 4. Small right pleural effusion. 5. Small hiatal hernia. 6. Cholelithiasis. Juan Leblanc MD Hepatobiliary Scan Nuclear Medicine 06/10/16 0000 Signed Impressions: Service Date/Time: Friday, June 10, 2016 12:50 - CONCLUSION: 1. Scintigraphic findings suggesting hepatocellular dysfunction with sluggish washout and persistent background activity. 2. Due to limited excretion, it is difficult to identify the extrahepatic biliary tree. However, activity is seen in the small bowel by 10 minutes. 3. No scintigraphic findings of acute cholecystitis. Bob Lara MD Cholangiopancreatography MRI 06/10/16 0000 Signed Impressions: Service Date/Time: Friday, June 10, 2016 12:25 - CONCLUSION: 1. Hepatosplenomegaly with significantly and inhomogeneously fatty infiltrated liver. 2. Slight ascites and bilateral pleural effusions. 3. Cholelithiasis and pericholecystic fluid and cholecystitis is not excluded. Mert Laurent MD Objective Remarks GENERAL: 31-year-old female, critically ill currently resting in bed on partial nonrebreather SKIN: Warm and dry. No rash HEAD: Atraumatic. Normocephalic. EYES: Pupils equal and round about 2-3 mm bilaterally and reactive. No scleral icterus. No injection or drainage. ENT: No nasal bleeding or discharge. Mucous membranes pink and moist. NECK: Trachea midline. No JVD. CARDIOVASCULAR: Tachycardic, RR. S1, [id number] murmur, clicks, gallops or rubs RESPIRATORY: Coarse crackles appreciated throughout lung dean. Diminished at bases. No wheeze GASTROINTESTINAL: Abdomen soft, non-tender, somewhat protuberant. Hypoactive bowel sounds appreciated MUSCULOSKELETAL: Extremities with trace lower extremity edema. No obvious deformities. NEUROLOGICAL: Awake and alert. No obvious cranial nerve deficits. Motor grossly within normal limits. Five out of 5 muscle strength in the arms and legs. Normal speech. PSYCHIATRIC: Appropriate mood and affect; insight and judgment normal. Procedures 06/16- thoracentesis 500 cc out- transudate A/P Assessment and Plan Neuro/Psych: EtOH Continue thiamine folate and multivitamin daily for EtOH use Ativan 0.5 every 8 hours when necessary anxiety [place] for pain CV: Patient is currently hemodynamically stable currently not requiring vasopressors and/or antihypertensives Resp: Acute hypoxemic respiratory failure Currently on partial nonrebreather at 15 L with saturations 95% As needed nasal BiPAP CT chest - bilateral infiltrates right upper greater than left upper and bilateral lower lobes, mild bilateral pleural effusions Currently on Pulmicort twice a day/Atrovent nebs every 4 hours Will add easy Pap every 4 hours Status post thoracentesis 800 cc transudative right side 06/16 - We'll start on low-dose steroids today 40 IV every 8 GI: Cholelithiasis Abdominal ascites Elevated transaminases Elevated bilirubin Elevated anti-1 antitrypsin 06/10 - MRCP - hepatosplenomegaly. - Ascites - cannot rule out cholecystitis 06/10 - HIDA scan - negative for cholecystitis Seen by gastroenterology. Negative hepatitis, AMA, ASMA, AMA and ceruloplasmin. Had signed off Currently on regular diet Follow hepatic profile in AM. Monitor Continue pentoxifylline 400 mg by mouth 3 times a day : Replaced for accurate I's and O's in a critically ill patient Endo: Sliding scale insulin if indicated to maintain euglycemia Renal: Monitor renal function daily Accurate I's and O's Monitor urine output Heme: Leukocytosis Macrocytic anemia Follow CBC daily. Monitor trends ID: We'll start on empiric antibiotics Levaquin 750 daily Pertinent cultures 06/10 - blood cultures 4 - 1 out of 4 Prop Acnes FEN: Hypophosphatemia Replace electrolytes as clinically indicated MSK: PT evaluate and treat Currently on Os-Zac twice a day Access - Utilize peripheral IV. Central line if indicated Prophylaxis - GI - Protonix - DVT - SCD/heparin subcutaneous Critical Care: The total critical care time was 35 minutes. Time to perform other separately billable procedures was not included in the critical care time. Active problems: Acute hypoxemia Acute hypoxic respiratory distress Volume overload Possible pulmonary edema Possible pneumonia Possible hepatopulmonary syndrome Plan: Continue nonrebreather, and wean FiO2 as tolerated for goal SPO2 greater than 80% CT chest Continue antibiotics Lasix 40 mg IV 1 with 25 g of concentrated albumen. We will consider re- dosing this in 6 hours. Goal net -1 L diuresis Limited 2-D echocardiogram with bubble study, particularly looking for delayed intrapulmonary shunt Saline lock IV fluids This patient remains critically ill with one or more organ systems which are or may become a threat to life. I have spent in excess of 39 minutes discontinuously in the care and management of this patient. This time is exclusive of procedures, and includes, but is not limited to, evaluation of the patient, review of the medical record, discussions with family, consultants, nursing staff, or respiratory therapy, and documentation in the medical record. Wang Jacobs MD June 23, 2016 09:30
[2016-06-23] MEDS: ONDANSETRON HCL 4 MG/2 ML VIAL IV PUSH PRN (14:09)
[2016-06-23] MEDS: methylPREDNISolone SOD SUCC 40 MG/1 ML VIAL IV PUSH SCH ×2 (14:10→20:07)
--- NOTE | 2016-06-23 16:35 | HHI.PR ---
Subjective Remarks 31 YOWF with ETOH use, sob, pl eff no CP Become more sob, hypoxic tr to IMC CXR pl effusion, RUL infilt Dr. Willis following Feels much better today On PRB Objective Vital Signs Vital Signs Date Time Temp Pulse Resp B/P Pulse Ox O2 Delivery O2 Flow Rate FiO2 06/23/16 16:00 120 06/23/16 15:11 22 06/23/16 12:00 116 06/23/16 08:00 95 Partial Non-Rebreather 13.00 06/23/16 08:00 120 06/23/16 07:28 98 Partial Rebreather 15.00 06/23/16 06:00 122 06/23/16 04:39 93 Partial Rebreather 15.00 06/23/16 04:00 98.4 121 21 89/55 97 06/23/16 04:00 121 06/23/16 02:00 124 06/23/16 01:00 96 75 06/23/16 00:00 129 06/23/16 00:00 98.5 129 22 99/62 92 06/22/16 23:39 96 Partial Rebreather 15.00 06/22/16 22:00 133 06/22/16 20:59 97 Partial Rebreather 06/22/16 20:00 98.8 132 24 106/62 93 06/22/16 20:00 132 06/22/16 19:00 93 Partial Non-Rebreather 13.00 06/22/16 18:00 129 I/O 06/22/16 06/22/16 06/22/16 06/23/16 06/23/16 06/23/16 07:00 15:00 23:00 07:00 15:00 23:00 Intake Total 300 ml 480 ml 814 ml 466 ml Output Total 1000 ml 240 ml 300 ml 500 ml Balance -700 ml 240 ml 514 ml -34 ml Intake Oral 300 ml 480 ml 550 ml 400 ml IV Total 264 ml 66 ml Output Urine Total 1000 ml 240 ml 300 ml 500 ml # Bowel Movements 0 0 0 Result Diagram: 06/23/16 0324 06/23/16 032 Objective Remarks GENERAL: MBMN WF,NAD SKIN: Warm and dry. HEAD: Normocephalic. EYES: No scleral icterus. No injection or drainage. NECK: Supple, trachea midline. No JVD or lymphadenopathy. CARDIOVASCULAR: Regular rate and rhythm without murmurs, gallops, or rubs. RESPIRATORY: Breath sounds equal bilaterally. No accessory muscle use. GASTROINTESTINAL: Abdomen soft, non-tender, nondistended. MUSCULOSKELETAL: No cyanosis, or edema. BACK: Nontender without obvious deformity. No CVA tenderness. A/P Assessment and Plan Resp insuff Hypoxia, less likly PE, INR1.9 RUL infilt Pleural effusion, s/p TC Alcohlic hepatitis ETOH use Nicotine use PLAN: PRB, Keep sat >90% Cont Abx Monitor pl effusion Diurease Tomi Mckeon MD June 23, 2016 16:35
[2016-06-23] MEDS: LORazepam 0.5 MG TAB PO PRN (21:45)
[2016-06-24] VITALS (19 sets, daily range): BP systolic 98–113; BP diastolic 54–71; PULSE 100–135; RESP 22–28; TEMP 98–98.5; O2SAT 88–99
[2016-06-24] MEDS: ACETAMINOPHEN/HYDROcodone 325 MG/5 MG TAB PO PRN ×4 (02:08→21:18)
[2016-06-24] MEDS: ONDANSETRON HCL 4 MG/2 ML VIAL IV PUSH PRN ×2 (02:08→10:59)
[2016-06-24] MEDS: CHLORHEXIDINE GLUCONATE 2 % 1 PACK (2 CLOTHS)(taper/protocol) TOPICAL SCH (04:00)
[2016-06-24] MEDS: RESP: IPRATROPIUM 0.5 MG/2.5 ML NEB NEB SCH ×3 (04:07→20:00)
[2016-06-24 04:48] LABS: HEMATOCRIT 26.7 % (35.0-46.0); MEAN CELL VOLUME 103.9 FL (80.0-100.0); MEAN CORPUSCULAR HEMOGLOBIN 34.5 PG (27.0-34.0); MEAN CORPUSCULAR HGB CONC 33.2 % (32.0-36.0); PLATELET COUNT 175 TH/MM3 (150-450); RED BLOOD COUNT 2.57 MIL/MM3 (4.00-5.30); RED CELL DISTRIBUTION WIDTH 14.8 % (11.6-17.2); REVIEW FLAG FINAL; WHITE BLOOD COUNT 15.6 TH/MM3 (4.0-11.0)
[2016-06-24 05:00] LABS: APTT (PATIENT) 44.6 SEC (24.3-30.1); INTERNATIONAL NORMALIZED RATIO 1.8 RATIO; PROTHROMBIN TIME - PATIENT 20.9 SEC (9.8-11.6)
[2016-06-24 05:06] LABS: BICARBONATE 27.1 MEQ/L (21.0-32.0); MAGNESIUM 2.3 MG/DL (1.5-2.5); POTASSIUM 4.3 MEQ/L (3.5-5.1)
[2016-06-24 05:09] LABS: INDIRECT BILIRUBIN 1.6 MG/DL (0.0-0.8); TOTAL BILIRUBIN ADULT 4.7 MG/DL (0.2-1.0)
[2016-06-24] MEDS: INSULIN NovoLIN REGULAR SUPPLEMENTAL SCALE SQ SCH ×4 (05:56→17:22)
[2016-06-24] MEDS: methylPREDNISolone SOD SUCC 40 MG/1 ML VIAL IV PUSH SCH ×3 (05:56→21:18)
[2016-06-24] MEDS: PENTOXIFYLLINE 400 MG CONTROLLED RELEASE TAB PO SCH ×3 (05:56→21:17)
[2016-06-24] MEDS: LEVOFLOXACIN 750 MG TAB PO SCH (05:58)
[2016-06-24] MEDS: RESP: BUDESONIDE 0.5 MG/2 ML NEB NEB SCH ×2 (07:37→20:23)
[2016-06-24] MEDS: SODIUM CHLORIDE 0.9% FLUSH 10 ML FLUSH IV FLUSH SCH ×2 (09:00→21:21)
[2016-06-24] MEDS: THIAMINE HCL 100 MG TAB PO SCH (09:50)
[2016-06-24] MEDS: guaiFENesin E.R. 600 MG TAB PO SCH ×2 (09:50→21:18)
[2016-06-24] MEDS: RIFAXIMIN 550 MG TAB PO SCH ×2 (09:50→21:17)
[2016-06-24] MEDS: PANTOPRAZOLE SOD 40 MG DELAYED RELEASE TAB PO SCH (09:50)
[2016-06-24] MEDS: MULTIVITAMIN TAB PO SCH (09:50)
[2016-06-24] MEDS: FOLIC ACID 1 MG TAB PO SCH (09:50)
[2016-06-24] MEDS: CALCIUM CARBONATE 1.25 GM (CA 500 MG) TAB PO SCH ×2 (09:50→21:17)
--- NOTE | 2016-06-24 11:12 | HHI.CCPN ---
Subjective Remarks/Hospital Course This is a 31-year-old female without prior past medical history who initially presented to the hospital on 06/10 complaining of shortness of breath. At that time she was found to have end-stage liver disease which is being worked up. During his hospital admission she underwent drainage of pleural effusion for hypoxia. She presented in rapid response from the floor for worsening hypoxia. When I evaluated the patient on her arrival to the intensive care unit she was tach state on her cell phone and appeared in no apparent distress. However , she was significantly hypoxic with SPO2 of 85% on a nonrebreather. Despite the fact that she did not appear in distress, she did have trouble speaking in complete sentences, and was quite dyspneic on my evaluation. This limited the amount of history was able to obtain from her. She did state this was similar to her presenting shortness of breath almost a week ago. She denies any associated symptoms, and denies any changes today compared to prior days. Her chest x-ray does appear to have significant pulmonary edema with associated bilateral pleural effusions. Her BNP was elevated a few days ago and it is difficult to assess her volume status given that she has not had strict I's and O's. She does appear to be up 8 kg from admission weight. 06/22: Currently on high flow nasal cannula. Negative PFO on KARAN today. Appears comfortable. Bilateral infiltrates CT Chest Yesterday.. Still feels short of breath.. Received 120 mg IV Lasix last night Subjective 06/23: Currently on partial nonrebreather. Intermittent BiPAP overnight. States she is short of breath but appears comfortable. Not tachypneic or using accessory muscles. 06/24 Patient placed on BIPAP overnight 11/24 with 75% FIO2. Afebrile. Objective Vital Signs Date Time Temp Pulse Resp B/P Pulse Ox O2 Delivery O2 Flow Rate FiO2 06/24/16 10:00 102 06/24/16 07:39 97 75 06/24/16 07:00 Bi-Pap 13.00 06/24/16 04:00 98.2 27 98/54 Intake and Output 06/23/16 06/23/16 06/24/16 08:00 16:00 00:00 Intake Total 466 ml 480 ml Output Total 500 ml 550 ml 100 ml Balance -34 ml -550 ml 380 ml Result Diagram: 06/24/16 0419 06/24/16 0419 Other Results Laboratory Tests Test 06/24/16 04:19 White Blood Count 15.6 TH/MM3 Red Blood Count 2.57 MIL/MM3 Hemoglobin 8.9 GM/DL Hematocrit 26.7 % Mean Corpuscular Volume 103.9 FL Mean Corpuscular Hemoglobin 34.5 PG Mean Corpuscular Hemoglobin 33.2 % Concent Red Cell Distribution Width 14.8 % Platelet Count 175 TH/MM3 Mean Platelet Volume 10.3 FL Prothrombin Time 20.9 SEC Prothromb Time International 1.8 RATIO Ratio Activated Partial 44.6 SEC Thromboplast Time Sodium Level 138 MEQ/L Potassium Level 4.3 MEQ/L Chloride Level 103 MEQ/L Carbon Dioxide Level 27.1 MEQ/L Anion Gap 8 MEQ/L Blood Urea Nitrogen 6 MG/DL Creatinine 0.56 MG/DL Estimat Glomerular Filtration 125 ML/MIN Rate Random Glucose 191 MG/DL Calcium Level 8.0 MG/DL Phosphorus Level 2.2 MG/DL Magnesium Level 2.3 MG/DL Total Bilirubin 4.7 MG/DL Direct Bilirubin 3.1 MG/DL Indirect Bilirubin 1.6 MG/DL Aspartate Amino Transf 117 U/L (AST/SGOT) Alanine Aminotransferase 27 U/L (ALT/SGPT) Alkaline Phosphatase 166 U/L Total Protein 5.4 GM/DL Albumin 2.3 GM/DL Imaging Last Impressions Chest X-Ray 06/23/16 0000 Signed Impressions: Service Date/Time: June 08:11 - CONCLUSION: 1. Bilateral upper lobe airspace consolidation, mildly increased from the prior study. 2. Stable bibasilar opacities representing pleural effusion with associated volume loss and/or airspace consolidation. Qasim Osuna MD Chest CT 06/21/16 0000 Signed Impressions: Service Date/Time: Tuesday, June 21, 2016 21:50 - CONCLUSION: Widespread areas of consolidation involving the lower lobes bilaterally and the upper lobes bilaterally. This is nonspecific. It could be infectious. There are moderate bilateral pleural effusions and mild ascites. Qasim Phillips MD Abdomen Ultrasound 06/17/16 0000 Signed Impressions: Service Date/Time: Friday, June 17, 2016 10:00 - CONCLUSION: There is not enough fluid for safe paracentesis.. Harish Chaudhary MD FACR Thoracentesis Ultrasound 06/16/16 0000 Signed Impressions: Service Date/Time: May 14:13 - CONCLUSION: Uncomplicated ultrasound guided thoracentesis. Qasim Osuna MD Abdomen/Pelvis CT 06/10/16 0651 Signed Impressions: Service Date/Time: Friday, June 10, 2016 07:22 - CONCLUSION: 1. Enlarged fatty liver. 2. Mild splenomegaly. 3. Small to moderate amount of ascites within the abdomen and pelvis. 4. Small right pleural effusion. 5. Small hiatal hernia. 6. Cholelithiasis. Juan Leblanc MD Hepatobiliary Scan Nuclear Medicine 06/10/16 0000 Signed Impressions: Service Date/Time: Friday, June 10, 2016 12:50 - CONCLUSION: 1. Scintigraphic findings suggesting hepatocellular dysfunction with sluggish washout and persistent background activity. 2. Due to limited excretion, it is difficult to identify the extrahepatic biliary tree. However, activity is seen in the small bowel by 10 minutes. 3. No scintigraphic findings of acute cholecystitis. Bob Lara MD Cholangiopancreatography MRI 06/10/16 0000 Signed Impressions: Service Date/Time: Friday, June 10, 2016 12:25 - CONCLUSION: 1. Hepatosplenomegaly with significantly and inhomogeneously fatty infiltrated liver. 2. Slight ascites and bilateral pleural effusions. 3. Cholelithiasis and pericholecystic fluid and cholecystitis is not excluded. Mert Laurent MD Objective Remarks GENERAL: 31-year-old female, critically ill currently resting in bed on partial nonrebreather SKIN: Warm and dry. No rash HEAD: Atraumatic. Normocephalic. EYES: Pupils equal and round about 2-3 mm bilaterally and reactive. No scleral icterus. No injection or drainage. ENT: No nasal bleeding or discharge. Mucous membranes pink and moist. NECK: Trachea midline. No JVD. CARDIOVASCULAR: Tachycardic, RR. S1, [id number] murmur, clicks, gallops or rubs RESPIRATORY: Coarse crackles appreciated throughout lung dean. Diminished at bases. No wheeze GASTROINTESTINAL: Abdomen soft, non-tender, somewhat protuberant. Hypoactive bowel sounds appreciated MUSCULOSKELETAL: Extremities with trace lower extremity edema. No obvious deformities. NEUROLOGICAL: Awake and alert. No obvious cranial nerve deficits. Motor grossly within normal limits. Five out of 5 muscle strength in the arms and legs. Normal speech. PSYCHIATRIC: Appropriate mood and affect; insight and judgment normal. Procedures 06/16- thoracentesis 500 cc out- transudate A/P Assessment and Plan Neuro/Psych: EtOH Continue thiamine folate and multivitamin daily for EtOH use Ativan 0.5 every 8 hours when necessary anxiety [place] for pain CV: Monitor HR and BP keep MAP>65mmHg Echo showed EF 50-55%, Resp: Acute hypoxemic respiratory failure Continue with oxygen keep sat >92% Bronchodilators NIPPV for resp distress If thre is any worsening of resp status will proceed with intubation and mechanical ventilation, CT chest - bilateral infiltrates right upper greater than left upper and bilateral lower lobes, mild bilateral pleural effusions Currently on Pulmicort twice a day/Atrovent nebs every 4 hours Status post thoracentesis 800 cc transudative right side 06/16 - On Solumederol 40 IV every 8 GI: Cholelithiasis Abdominal ascites Elevated transaminases Elevated bilirubin Elevated anti-1 antitrypsin 06/10 - MRCP - hepatosplenomegaly. - Ascites - cannot rule out cholecystitis 06/10 - HIDA scan - negative for cholecystitis Seen by gastroenterology. Negative hepatitis, AMA, ASMA, AMA and ceruloplasmin. Had signed off Currently on regular diet Hepatitis profile negative Continue pentoxifylline 400 mg by mouth 3 times a day : Monitor renal function, I/O's, electrolytes replacement per protocol. Diurese with Bumex 1mg x1 Endo: Sliding scale insulin for glycemic control Heme: Leukocytosis Macrocytic anemia Monitor CBC ID: Change abx to Zosyn give vanco 1gram x1 dose , d/c Levaquin monitor for signs of infections ( Fever, WBC) Check sputum cx, strep pneumonia and Legionella urinary Ag Pertinent cultures 06/10 - blood cultures 4 - 1 out of 4 Prop Acnes MSK: PT evaluate and treat Currently on Os-Zac twice a day Access - Utilize peripheral IV. Central line if indicated Prophylaxis - GI - Protonix - DVT - SCD/ coagulopathic with INR 1.8-1.9 Critical Care: The total critical care time was 30 minutes. Time to perform other separately billable procedures was not included in the critical care time. Thad Mccall MD June 24, 2016 11:12
[2016-06-24] MEDS ORDERED: BUMETANIDE INJ 1 MG/4 ML VIAL IV PUSH ONE (11:15)
[2016-06-24] MEDS ORDERED: VANCOMYCIN INJ 1,000 MG in SODIUM CHLOR 0.9% 250 ML INJ 250 ML IV ONE (11:30)
[2016-06-24] MEDS: PIPERACIL-TAZO 4.5 GM PREMIX 100 ML IV SCH ×2 (11:42→16:33)
[2016-06-24] MEDS: RESP: ALBUTEROL 2.5 MG/IPRATROPIUM 0.5 MG NEB (SCH) NEB ×4 (12:34→23:46)
--- NOTE | 2016-06-24 17:20 | HHI.PR ---
Subjective Remarks 31 YOWF with ETOH use, sob, pl eff no CP Become more sob, hypoxic CXR pl effusion, RUL infilt Feels much better today On PRB Objective Vital Signs Vital Signs Date Time Temp Pulse Resp B/P Pulse Ox O2 Delivery O2 Flow Rate FiO2 06/24/16 16:00 104 06/24/16 14:00 104 06/24/16 12:37 92 Partial Rebreather 15.00 06/24/16 12:00 107 06/24/16 10:00 102 06/24/16 08:00 110 06/24/16 07:39 97 75 06/24/16 07:00 Bi-Pap 13.00 75 06/24/16 06:30 90 75 06/24/16 06:00 121 06/24/16 04:00 98.2 117 27 98/54 97 06/24/16 04:00 117 06/24/16 02:00 122 06/24/16 01:10 98 75 06/24/16 00:00 118 06/24/16 00:00 98.0 118 28 108/67 96 06/23/16 22:15 Bi-Pap 06/23/16 22:09 92 75 06/23/16 22:00 122 06/23/16 20:00 97.8 125 29 103/68 90 06/23/16 20:00 120 06/23/16 19:42 95 Partial Rebreather 15.00 06/23/16 19:00 93 Partial Non-Rebreather 13.00 75 06/23/16 18:00 130 I/O 06/23/16 06/23/16 06/23/16 06/24/16 06/24/16 06/24/16 07:00 15:00 23:00 07:00 15:00 23:00 Intake Total 466 ml 480 ml 240 ml 121 ml Output Total 500 ml 650 ml 100 ml 1000 ml Balance -34 ml -170 ml 140 ml -879 ml Intake Oral 400 ml 480 ml 240 ml IV Total 66 ml 121 ml Output Urine Total 500 ml 650 ml 100 ml 1000 ml Stool Total 0 ml # Bowel Movements 0 Result Diagram: 06/24/16 0419 06/24/16 0419 Objective Remarks GENERAL: MBMN WF,NAD SKIN: Warm and dry. HEAD: Normocephalic. EYES: No scleral icterus. No injection or drainage. NECK: Supple, trachea midline. No JVD or lymphadenopathy. CARDIOVASCULAR: Regular rate and rhythm without murmurs, gallops, or rubs. RESPIRATORY: Breath sounds equal bilaterally. No accessory muscle use. GASTROINTESTINAL: Abdomen soft, non-tender, nondistended. MUSCULOSKELETAL: No cyanosis, or edema. BACK: Nontender without obvious deformity. No CVA tenderness. A/P Assessment and Plan Resp insuff Hypoxia, less likly PE, INR1.9 RUL infilt Pleural effusion, s/p TC Alcohlic hepatitis ETOH use Nicotine use PLAN: PRB, Keep sat >90% Cont Abx Monitor pl effusion Diurease Encourage Po intake Tomi Mckeon MD June 24, 2016 17:20
[2016-06-24] MEDS: LORazepam 0.5 MG TAB PO PRN (21:18)
[2016-06-25] VITALS (26 sets, daily range): BP systolic 99–119; BP diastolic 56–78; PULSE 116–135; RESP 23–40; TEMP 97.7–98.4; O2SAT 83–99
[2016-06-25] MEDS: PIPERACIL-TAZO 4.5 GM PREMIX 100 ML IV SCH ×4 (00:28→17:58)
[2016-06-25] MEDS: RESP: ALBUTEROL 2.5 MG/IPRATROPIUM 0.5 MG NEB (SCH) NEB ×5 (03:32→21:17)
[2016-06-25] MEDS: CHLORHEXIDINE GLUCONATE 2 % 1 PACK (2 CLOTHS)(taper/protocol) TOPICAL SCH (04:00)
[2016-06-25] MEDS: ACETAMINOPHEN/HYDROcodone 325 MG/5 MG TAB PO PRN ×3 (05:42→21:08)
[2016-06-25] MEDS: methylPREDNISolone SOD SUCC 40 MG/1 ML VIAL IV PUSH SCH ×3 (05:42→21:08)
[2016-06-25] MEDS: INSULIN NovoLIN REGULAR SUPPLEMENTAL SCALE SQ SCH ×4 (05:43→18:00)
[2016-06-25] MEDS: LORazepam 0.5 MG TAB PO PRN ×2 (05:43→16:26)
[2016-06-25] MEDS: PENTOXIFYLLINE 400 MG CONTROLLED RELEASE TAB PO SCH ×3 (05:43→21:09)
[2016-06-25 06:15] LABS: APTT (PATIENT) 33.5 SEC (24.3-30.1); INTERNATIONAL NORMALIZED RATIO 1.6 RATIO; PROTHROMBIN TIME - PATIENT 18.3 SEC (9.8-11.6)
[2016-06-25 06:22] LABS: BICARBONATE 23.9 MEQ/L (21.0-32.0); MAGNESIUM 2.2 MG/DL (1.5-2.5); POTASSIUM 3.9 MEQ/L (3.5-5.1)
[2016-06-25 06:25] LABS: INDIRECT BILIRUBIN 1.5 MG/DL (0.0-0.8); TOTAL BILIRUBIN ADULT 3.7 MG/DL (0.2-1.0)
[2016-06-25 06:30] LABS: AUTOMATED NEUTROPHIL # 18.5 TH/MM3 (1.8-7.7); BASOPHIL # 0.1 TH/MM3 (0-0.2); BASOPHIL % 0.7 % (0.0-2.0); HEMATOCRIT 27.9 % (35.0-46.0); HEMO FLAGS DIFF FINAL; LYMPHOCYTE # 0.4 TH/MM3 (1.0-4.8); MEAN CELL VOLUME 104.2 FL (80.0-100.0); MEAN CORPUSCULAR HEMOGLOBIN 33.7 PG (27.0-34.0); MEAN CORPUSCULAR HGB CONC 32.4 % (32.0-36.0); MONO % 3.1 % (0.0-8.0); NEUT % 94.2 % (16.0-70.0); PLATELET COUNT 191 TH/MM3 (150-450); RED BLOOD COUNT 2.68 MIL/MM3 (4.00-5.30); RED CELL DISTRIBUTION WIDTH 15.3 % (11.6-17.2); WHITE BLOOD COUNT 19.6 TH/MM3 (4.0-11.0)
[2016-06-25] MEDS: CALCIUM CARBONATE 1.25 GM (CA 500 MG) TAB PO SCH ×2 (08:50→21:09)
[2016-06-25] MEDS: PANTOPRAZOLE SOD 40 MG DELAYED RELEASE TAB PO SCH (08:50)
[2016-06-25] MEDS: guaiFENesin E.R. 600 MG TAB PO SCH ×2 (08:50→21:09)
[2016-06-25] MEDS: SODIUM CHLORIDE 0.9% FLUSH 10 ML FLUSH IV FLUSH SCH ×2 (08:50→21:09)
[2016-06-25] MEDS: THIAMINE HCL 100 MG TAB PO SCH (08:50)
[2016-06-25] MEDS: FOLIC ACID 1 MG TAB PO SCH (08:50)
[2016-06-25] MEDS: RIFAXIMIN 550 MG TAB PO SCH ×2 (08:50→21:09)
[2016-06-25] MEDS: MULTIVITAMIN TAB PO SCH (08:50)
[2016-06-25] MEDS: RESP: BUDESONIDE 0.5 MG/2 ML NEB NEB SCH ×2 (09:00→21:17)
--- NOTE | 2016-06-25 10:25 | HHI.PR ---
Subjective Remarks 06/25 Patient is off BIPAP now on partial rebreather denies any worsening SOB. Afebrile. Objective Vital Signs Vital Signs Date Time Temp Pulse Resp B/P Pulse Ox O2 Delivery O2 Flow Rate FiO2 06/25/16 09:01 93 Partial Rebreather 15.00 06/25/16 06:00 123 06/25/16 04:00 98.2 133 37 119/70 96 06/25/16 04:00 123 06/25/16 02:00 123 06/25/16 00:00 125 06/25/16 00:00 98.4 125 36 114/56 98 06/24/16 23:51 98 Bi-Pap 75 06/24/16 23:46 99 75 06/24/16 22:00 135 06/24/16 21:22 98.5 134 22 106/56 88 06/24/16 20:23 95 Partial Rebreather 14.00 06/24/16 20:00 126 06/24/16 19:00 96 Partial Non-Rebreather 13.00 06/24/16 18:00 100 06/24/16 16:00 104 06/24/16 16:00 98.2 119 23 107/62 94 06/24/16 14:00 104 06/24/16 12:37 92 Partial Rebreather 15.00 06/24/16 12:00 107 06/24/16 12:00 98.3 116 25 113/71 96 I/O 06/24/16 06/24/16 06/24/16 06/25/16 06/25/16 06/25/16 07:00 15:00 23:00 07:00 15:00 23:00 Intake Total 240 ml 121 ml 334 ml 134 ml Output Total 100 ml 1000 ml 300 ml 250 ml Balance 140 ml -879 ml 34 ml -116 ml Intake Oral 240 ml IV Total 121 ml 334 ml 134 ml Output Urine Total 100 ml 1000 ml 300 ml 250 ml Stool Total 0 ml # Bowel Movements 1 Result Diagram: 06/25/16 0458 06/25/16 0458 Other Results Laboratory Tests Test 06/25/16 04:58 White Blood Count 19.6 TH/MM3 Red Blood Count 2.68 MIL/MM3 Hemoglobin 9.0 GM/DL Hematocrit 27.9 % Mean Corpuscular Volume 104.2 FL Mean Corpuscular Hemoglobin 33.7 PG Mean Corpuscular Hemoglobin 32.4 % Concent Red Cell Distribution Width 15.3 % Platelet Count 191 TH/MM3 Mean Platelet Volume 10.4 FL Neutrophils (%) (Auto) 94.2 % Lymphocytes (%) (Auto) 2.0 % Monocytes (%) (Auto) 3.1 % Eosinophils (%) (Auto) 0.0 % Basophils (%) (Auto) 0.7 % Neutrophils # (Auto) 18.5 TH/MM3 Lymphocytes # (Auto) 0.4 TH/MM3 Monocytes # (Auto) 0.6 TH/MM3 Eosinophils # (Auto) 0.0 TH/MM3 Basophils # (Auto) 0.1 TH/MM3 CBC Comment DIFF FINAL Differential Comment Prothrombin Time 18.3 SEC Prothromb Time International 1.6 RATIO Ratio Activated Partial 33.5 SEC Thromboplast Time Sodium Level 138 MEQ/L Potassium Level 3.9 MEQ/L Chloride Level 101 MEQ/L Carbon Dioxide Level 23.9 MEQ/L Anion Gap 13 MEQ/L Blood Urea Nitrogen 8 MG/DL Creatinine 0.64 MG/DL Estimat Glomerular Filtration 107 ML/MIN Rate Random Glucose 125 MG/DL Calcium Level 8.6 MG/DL Phosphorus Level 2.5 MG/DL Magnesium Level 2.2 MG/DL Total Bilirubin 3.7 MG/DL Direct Bilirubin 2.2 MG/DL Indirect Bilirubin 1.5 MG/DL Aspartate Amino Transf 122 U/L (AST/SGOT) Alanine Aminotransferase 33 U/L (ALT/SGPT) Alkaline Phosphatase 172 U/L Total Protein 6.0 GM/DL Albumin 2.5 GM/DL Objective Remarks GENERAL: Patient is 31 yo on partial rebreather SKIN: Warm and dry. HEAD: Normocephalic. EYES: No scleral icterus. No injection or drainage. NECK: Supple, trachea midline. No JVD or lymphadenopathy. CARDIOVASCULAR: Tachycardic without murmurs, gallops, or rubs. RESPIRATORY: Breath sounds equal bilaterally. Few coarse BS GASTROINTESTINAL: Abdomen soft, non-tender, nondistended. MUSCULOSKELETAL: No cyanosis, or edema. Neuro: Awake and alert A/P Assessment and Plan Resp Insuff Pneumonia Pleural effusion, s/p Thoracentesis Leukocytosis Anemia Alcohlic hepatitis ETOH use Nicotine use PLAN: Continue with oxygen keep sat >92% Bronchodilators, check CXR NIPPV for resp distress If there is any worsening of resp status will proceed with intubation and mechanical ventilation, Currently on Pulmicort twice a day/Atrovent nebs every 4 hours Status post thoracentesis 800 cc transudative right side 06/16 - On Solumederol 40 IV every 8 Continue with abx ) Zosyn), Vanco x1 dose yesterday. Monitor for signs of infections ( Fever, WBC) Follow up on sputum cx, strep pneumonia and legionella urinary ag negative. Thad Mccall MD June 25, 2016 10:25
--- NOTE | 2016-06-25 10:52 | RADRPT ---
EXAM DATE/TIME: 06/25/2016 10:39 [facility] COMPARISON: CHEST SINGLE AP, June 23, 2016, 8:11. INDICATIONS : Followup right infiltrates and probable pneumonia. Shortness of breath. MEDICAL HISTORY : None. SURGICAL HISTORY : None. ENCOUNTER: Subsequent ACUITY: 3 weeks PAIN SCORE: 0/10 LOCATION: chest FINDINGS: A single AP semierect view the chest was obtained and demonstrates an interval increase in the left p erihilar opacity. Consolidative opacity is present at the right lung base as well. This does not appe ar significantly changed. The infiltrate in the right upper lobe appears mildly improved. There are m ore hazy opacities in both lungs. The heart size remains within normal limits. There is blunting of t he right costophrenic angle. The bony thorax is intact with overlying electrocardiogram leads. CONCLUSION: 1. Mild increased opacity in left perihilar region with improved opacity in the right upper lobe. 2. Small right effusion. Melo Kitchen MD on June 25, 2016 at 10:48 Board Certified Radiologist. This report was verified electronically.
--- NOTE | 2016-06-25 11:53 | HHI.CCPN ---
Subjective Remarks/Hospital Course This is a 31-year-old female without prior past medical history who initially presented to the hospital on 06/10 complaining of shortness of breath. At that time she was found to have end-stage liver disease which is being worked up. During his hospital admission she underwent drainage of pleural effusion for hypoxia. She presented in rapid response from the floor for worsening hypoxia. When I evaluated the patient on her arrival to the intensive care unit she was tach state on her cell phone and appeared in no apparent distress. However , she was significantly hypoxic with SPO2 of 85% on a nonrebreather. Despite the fact that she did not appear in distress, she did have trouble speaking in complete sentences, and was quite dyspneic on my evaluation. This limited the amount of history was able to obtain from her. She did state this was similar to her presenting shortness of breath almost a week ago. She denies any associated symptoms, and denies any changes today compared to prior days. Her chest x-ray does appear to have significant pulmonary edema with associated bilateral pleural effusions. Her BNP was elevated a few days ago and it is difficult to assess her volume status given that she has not had strict I's and O's. She does appear to be up 8 kg from admission weight. 06/22: Currently on high flow nasal cannula. Negative PFO on KARAN today. Appears comfortable. Bilateral infiltrates CT Chest Yesterday.. Still feels short of breath.. Received 120 mg IV Lasix last night 06/23: Currently on partial nonrebreather. Intermittent BiPAP overnight. States she is short of breath but appears comfortable. Not tachypneic or using accessory muscles. 06/24 Patient placed on BIPAP overnight 11/24 with 75% FIO2. Afebrile. Subjective 06/25: On BiPAP 1 hour last night. Satting 99% currently on partial nonrebreather. Appears comfortable not using accessory muscles. Tolerating diet. Objective Vital Signs Date Time Temp Pulse Resp B/P Pulse Ox O2 Delivery O2 Flow Rate FiO2 06/25/16 10:00 124 06/25/16 09:01 93 Partial Rebreather 15.00 06/25/16 08:01 97.8 28 119/78 06/24/16 23:51 75 Intake and Output 06/24/16 06/24/16 06/25/16 08:00 16:00 00:00 Intake Total 240 ml 121 ml 334 ml Output Total 100 ml 1000 ml 300 ml Balance 140 ml -879 ml 34 ml Result Diagram: 06/25/16 0458 06/25/16 0458 Other Results Microbiology Date/Time Procedure Status Source Growth 06/24/16 13:00 Gram Stain - Final Resulted Sputum Expectorated Sputum 06/24/16 13:00 Sputum Culture Resulted Sputum Expectorated Sputum Pending 06/24/16 11:48 Legionella Antigen - Final Complete Urine Catheterized Urine PRESUMPTIVE NEGATIVE FOR LEGIONELLA P... 06/24/16 11:48 Streptococcus pneumoniae Antigen (M - Final Complete Urine Catheterized Urine PRESUMPTIVE NEGATIVE FOR STREPTOCOCCU... Imaging Last Impressions Chest X-Ray 06/25/16 0000 Signed Impressions: Service Date/Time: Saturday, June 25, 2016 10:39 - CONCLUSION: 1. Mild increased opacity in left perihilar region with improved opacity in the right upper lobe. 2. Small right effusion. Melo Kitchen MD Chest CT 06/21/16 0000 Signed Impressions: Service Date/Time: Tuesday, June 21, 2016 21:50 - CONCLUSION: Widespread areas of consolidation involving the lower lobes bilaterally and the upper lobes bilaterally. This is nonspecific. It could be infectious. There are moderate bilateral pleural effusions and mild ascites. Qasim Phillips MD Abdomen Ultrasound 06/17/16 0000 Signed Impressions: Service Date/Time: Friday, June 17, 2016 10:00 - CONCLUSION: There is not enough fluid for safe paracentesis.. Harish Chaudhary MD FACR Thoracentesis Ultrasound 06/16/16 0000 Signed Impressions: Service Date/Time: May 14:13 - CONCLUSION: Uncomplicated ultrasound guided thoracentesis. Qasim Osuna MD Abdomen/Pelvis CT 06/10/16 0651 Signed Impressions: Service Date/Time: Friday, June 10, 2016 07:22 - CONCLUSION: 1. Enlarged fatty liver. 2. Mild splenomegaly. 3. Small to moderate amount of ascites within the abdomen and pelvis. 4. Small right pleural effusion. 5. Small hiatal hernia. 6. Cholelithiasis. Juan Leblanc MD Hepatobiliary Scan Nuclear Medicine 06/10/16 0000 Signed Impressions: Service Date/Time: Friday, June 10, 2016 12:50 - CONCLUSION: 1. Scintigraphic findings suggesting hepatocellular dysfunction with sluggish washout and persistent background activity. 2. Due to limited excretion, it is difficult to identify the extrahepatic biliary tree. However, activity is seen in the small bowel by 10 minutes. 3. No scintigraphic findings of acute cholecystitis. Bob Lara MD Cholangiopancreatography MRI 06/10/16 0000 Signed Impressions: Service Date/Time: Friday, June 10, 2016 12:25 - CONCLUSION: 1. Hepatosplenomegaly with significantly and inhomogeneously fatty infiltrated liver. 2. Slight ascites and bilateral pleural effusions. 3. Cholelithiasis and pericholecystic fluid and cholecystitis is not excluded. Mert Laurent MD Objective Remarks GENERAL: 31-year-old female, critically ill currently resting in bed on partial nonrebreather SKIN: Warm and dry. No rash HEAD: Atraumatic. Normocephalic. EYES: Pupils equal and round about 2-3 mm bilaterally and reactive. No scleral icterus. No injection or drainage. ENT: No nasal bleeding or discharge. Mucous membranes pink and moist. NECK: Trachea midline. No JVD. CARDIOVASCULAR: Tachycardic, RR. S1, S2 without murmur, clicks, gallops or rubs RESPIRATORY: Coarse crackles appreciated throughout lung dean. Diminished at bases. No wheeze GASTROINTESTINAL: Abdomen soft, non-tender, somewhat protuberant. Hypoactive bowel sounds appreciated MUSCULOSKELETAL: Extremities with trace lower extremity edema. No obvious deformities. NEUROLOGICAL: Awake and alert. No obvious cranial nerve deficits. Motor grossly within normal limits. Five out of 5 muscle strength in the arms and legs. Normal speech. PSYCHIATRIC: Appropriate mood and affect; insight and judgment normal. Procedures 06/16- thoracentesis 500 cc out- transudate A/P Assessment and Plan Neuro/Psych: EtOH Continue thiamine folate and multivitamin daily for EtOH use Ativan 0.5 every 8 hours when necessary anxiety [place] for pain CV: Monitor HR and BP keep MAP>65mmHg Echo showed EF 50-55%, no regional wall motion abnormality Resp: Acute hypoxemic respiratory failure Continue with oxygen keep sat >92% Duo nebs every 4 hours/every 2 hours. Dyspnea NIPPV for resp distress CT chest - bilateral infiltrates right upper greater than left upper and bilateral lower lobes, mild bilateral pleural effusions Currently on Pulmicort twice a day Status post thoracentesis 800 cc transudative right side 06/16 - On Solumedrol 40 milligrams IV every 8 GI: Cholelithiasis Abdominal ascites Elevated transaminases Elevated bilirubin Elevated anti-1 antitrypsin 06/10 - MRCP - hepatosplenomegaly. - Ascites - cannot rule out cholecystitis 06/10 - HIDA scan - negative for cholecystitis Seen by gastroenterology. Negative hepatitis, AMA, ASMA, AMA and ceruloplasmin. Had signed off Currently on regular diet Hepatitis profile negative Continue pentoxifylline 400 mg by mouth 3 times a day : Monitor renal function, I/O's, electrolytes replacement per protocol. Endo: Sliding scale insulin for glycemic control Heme: Leukocytosis Macrocytic anemia Monitor CBC ID: Change abx to Zosyn give vanco 1gram x1 dose , d/c Levaquin monitor for signs of infections ( Fever, WBC) / sputum cx, strep pneumonia and Legionella urinary Ag all negative Pertinent cultures 06/10 - blood cultures 4 - 1 out of 4 Prop Acnes MSK: PT evaluate and treat Currently on Os-Zac twice a day Access - Utilize peripheral IV. Central line if indicated Prophylaxis - GI - Protonix - DVT - SCD/ coagulopathic with INR 1.6 Critical Care: The total critical care time was 35 minutes. Time to perform other separately billable procedures was not included in the critical care time. Wang Jacobs MD June 25, 2016 11:53
[2016-06-25] MEDS: ONDANSETRON HCL 4 MG/2 ML VIAL IV PUSH PRN (21:08)
[2016-06-26] VITALS (35 sets, daily range): BP systolic 106–129; BP diastolic 56–75; PULSE 116–145; RESP 22–51; TEMP 97.6–98.2; O2SAT 84–98
[2016-06-26] MEDS: PIPERACIL-TAZO 4.5 GM PREMIX 100 ML IV SCH ×4 (00:04→18:39)
[2016-06-26] MEDS: LORazepam 0.5 MG TAB PO PRN (00:04)
[2016-06-26] MEDS: RESP: ALBUTEROL 2.5 MG/IPRATROPIUM 0.5 MG NEB (SCH) NEB ×5 (00:11→20:21)
[2016-06-26] MEDS: INSULIN NovoLIN REGULAR SUPPLEMENTAL SCALE SQ SCH ×4 (00:13→18:40)
[2016-06-26] MEDS: CHLORHEXIDINE GLUCONATE 2 % 1 PACK (2 CLOTHS)(taper/protocol) TOPICAL SCH (04:00)
[2016-06-26] MEDS: methylPREDNISolone SOD SUCC 40 MG/1 ML VIAL IV PUSH SCH ×3 (05:24→19:57)
[2016-06-26] MEDS: PENTOXIFYLLINE 400 MG CONTROLLED RELEASE TAB PO SCH ×3 (05:25→19:56)
[2016-06-26 05:36] LABS: MEAN CORPUSCULAR HEMOGLOBIN 33.6 PG (27.0-34.0); MEAN CORPUSCULAR HGB CONC 32.3 % (32.0-36.0); PLATELET COUNT 187 TH/MM3 (150-450); RED CELL DISTRIBUTION WIDTH 15.1 % (11.6-17.2); REVIEW FLAG FINAL; WHITE BLOOD COUNT 18.3 TH/MM3 (4.0-11.0)
[2016-06-26 05:52] LABS: APTT (PATIENT) 35.2 SEC (24.3-30.1); INTERNATIONAL NORMALIZED RATIO 1.5 RATIO
[2016-06-26 06:01] LABS: POTASSIUM 3.8 MEQ/L (3.5-5.1); TOTAL BILIRUBIN ADULT 3.4 MG/DL (0.2-1.0)
[2016-06-26] MEDS: ACETAMINOPHEN/HYDROcodone 325 MG/5 MG TAB PO PRN ×3 (06:03→19:56)
[2016-06-26] MEDS: SODIUM CHLORIDE 0.9% FLUSH 10 ML FLUSH IV FLUSH SCH ×2 (09:00→19:57)
[2016-06-26] MEDS: MULTIVITAMIN TAB PO SCH (09:39)
[2016-06-26] MEDS: CALCIUM CARBONATE 1.25 GM (CA 500 MG) TAB PO SCH ×2 (09:39→19:56)
[2016-06-26] MEDS: RIFAXIMIN 550 MG TAB PO SCH ×2 (09:39→19:56)
[2016-06-26] MEDS: PANTOPRAZOLE SOD 40 MG DELAYED RELEASE TAB PO SCH (09:39)
[2016-06-26] MEDS: THIAMINE HCL 100 MG TAB PO SCH (09:39)
[2016-06-26] MEDS: FOLIC ACID 1 MG TAB PO SCH (09:39)
[2016-06-26] MEDS: guaiFENesin E.R. 600 MG TAB PO SCH ×2 (09:39→19:56)
--- NOTE | 2016-06-26 09:48 | HHI.PR ---
Subjective Remarks 06/26 Patient is off BIPAP still on high flow oxygen. Afebrile. Tachycardic. Objective Vital Signs Vital Signs Date Time Temp Pulse Resp B/P Pulse Ox O2 Delivery O2 Flow Rate FiO2 06/26/16 06:00 127 06/26/16 04:00 97.8 120 32 108/63 96 06/26/16 04:00 120 06/26/16 02:00 128 06/26/16 00:30 Bi-Pap 65 06/26/16 00:25 94 75 06/26/16 00:00 97.6 125 29 110/66 98 06/26/16 00:00 125 06/25/16 22:00 133 06/25/16 21:22 97 Partial Rebreather 14.00 06/25/16 20:00 127 06/25/16 20:00 97.7 127 30 99/64 98 06/25/16 20:00 98 Partial Non-Rebreather 06/25/16 18:00 130 40 96 06/25/16 18:00 129 06/25/16 17:00 125 35 95 06/25/16 16:00 98.4 125 32 91 06/25/16 16:00 125 06/25/16 15:00 134 35 83 06/25/16 14:00 130 06/25/16 14:00 134 33 116/68 90 06/25/16 13:30 130 37 96 06/25/16 13:00 125 39 119/60 92 06/25/16 12:30 124 29 95 06/25/16 12:00 98.0 123 28 110/60 94 06/25/16 12:00 126 06/25/16 11:30 123 23 99 06/25/16 11:00 124 26 108/71 98 06/25/16 10:30 130 35 97 06/25/16 10:00 130 32 109/70 97 06/25/16 10:00 124 I/O 06/25/16 06/25/16 06/25/16 06/26/16 06/26/16 06/26/16 07:00 15:00 23:00 07:00 15:00 23:00 Intake Total 134 ml 826 ml 613 ml 371 ml Output Total 250 ml 850 ml 550 ml 450 ml Balance -116 ml -24 ml 63 ml -79 ml Intake Oral 600 ml 480 ml 240 ml IV Total 134 ml 226 ml 133 ml 131 ml Output Urine Total 250 ml 850 ml 550 ml 450 ml # Bowel Movements 1 1 1 1 Result Diagram: 06/26/168 06/26/168 Other Results Last Impressions Chest X-Ray 06/25/16 0000 Signed Impressions: Service Date/Time: Saturday, June 25, 2016 10:39 - CONCLUSION: 1. Mild increased opacity in left perihilar region with improved opacity in the right upper lobe. 2. Small right effusion. Melo Kitchen MD Chest CT 06/21/16 0000 Signed Impressions: Service Date/Time: Tuesday, June 21, 2016 21:50 - CONCLUSION: Widespread areas of consolidation involving the lower lobes bilaterally and the upper lobes bilaterally. This is nonspecific. It could be infectious. There are moderate bilateral pleural effusions and mild ascites. Qasim Phillips MD Abdomen Ultrasound 06/17/16 0000 Signed Impressions: Service Date/Time: Friday, June 17, 2016 10:00 - CONCLUSION: There is not enough fluid for safe paracentesis.. Harish Chaudhary MD FACR Thoracentesis Ultrasound 06/16/16 0000 Signed Impressions: Service Date/Time: May 14:13 - CONCLUSION: Uncomplicated ultrasound guided thoracentesis. Qasim Osuna MD Abdomen/Pelvis CT 06/10/16 0651 Signed Impressions: Service Date/Time: Friday, June 10, 2016 07:22 - CONCLUSION: 1. Enlarged fatty liver. 2. Mild splenomegaly. 3. Small to moderate amount of ascites within the abdomen and pelvis. 4. Small right pleural effusion. 5. Small hiatal hernia. 6. Cholelithiasis. Juan Leblanc MD Hepatobiliary Scan Nuclear Medicine 06/10/16 0000 Signed Impressions: Service Date/Time: Friday, June 10, 2016 12:50 - CONCLUSION: 1. Scintigraphic findings suggesting hepatocellular dysfunction with sluggish washout and persistent background activity. 2. Due to limited excretion, it is difficult to identify the extrahepatic biliary tree. However, activity is seen in the small bowel by 10 minutes. 3. No scintigraphic findings of acute cholecystitis. Bob Lara MD Cholangiopancreatography MRI 06/10/16 0000 Signed Impressions: Service Date/Time: Friday, June 10, 2016 12:25 - CONCLUSION: 1. Hepatosplenomegaly with significantly and inhomogeneously fatty infiltrated liver. 2. Slight ascites and bilateral pleural effusions. 3. Cholelithiasis and pericholecystic fluid and cholecystitis is not excluded. Mert Laurent MD Laboratory Tests Test 06/26/16 04:58 White Blood Count 18.3 TH/MM3 Red Blood Count 2.50 MIL/MM3 Hemoglobin 8.4 GM/DL Hematocrit 26.0 % Mean Corpuscular Volume 104.0 FL Mean Corpuscular Hemoglobin 33.6 PG Mean Corpuscular Hemoglobin 32.3 % Concent Red Cell Distribution Width 15.1 % Platelet Count 187 TH/MM3 Mean Platelet Volume 10.0 FL Prothrombin Time 17.0 SEC Prothromb Time International 1.5 RATIO Ratio Activated Partial 35.2 SEC Thromboplast Time Sodium Level 139 MEQ/L Potassium Level 3.8 MEQ/L Chloride Level 100 MEQ/L Carbon Dioxide Level 30.0 MEQ/L Anion Gap 9 MEQ/L Blood Urea Nitrogen 9 MG/DL Creatinine 0.53 MG/DL Estimat Glomerular Filtration 133 ML/MIN Rate Random Glucose 135 MG/DL Calcium Level 8.2 MG/DL Total Bilirubin 3.4 MG/DL Direct Bilirubin 2.4 MG/DL Indirect Bilirubin 1.0 MG/DL Aspartate Amino Transf 160 U/L (AST/SGOT) Alanine Aminotransferase 44 U/L (ALT/SGPT) Alkaline Phosphatase 159 U/L Total Protein 5.5 GM/DL Albumin 2.3 GM/DL Objective Remarks GENERAL: Patient is 31 yo on partial rebreather SKIN: Warm and dry. HEAD: Normocephalic. EYES: No scleral icterus. No injection or drainage. NECK: Supple, trachea midline. No JVD or lymphadenopathy. CARDIOVASCULAR: Tachycardic without murmurs, gallops, or rubs. RESPIRATORY: Breath sounds equal bilaterally. Few coarse BS GASTROINTESTINAL: Abdomen soft, non-tender, nondistended. MUSCULOSKELETAL: No cyanosis, or edema. Neuro: Awake and alert A/P Assessment and Plan Resp Insuff Pneumonia Pleural effusion, s/p Thoracentesis Leukocytosis Anemia Alcohlic hepatitis ETOH use Nicotine use PLAN: Continue with oxygen keep sat >92% Bronchodilators, IS CXR from 06/25: Mild increased opacity in left perihilar region with improved opacity in the right upper lobe. Small right effusion. NIPPV for resp distress,. check CXR in am. Currently on Pulmicort twice a day/DuoNeb Status post thoracentesis 800 cc transudative right side 06/16 - On Solumederol 40 IV every 8, diurese with Bumex 1mg x1 Continue with abx (Zosyn), Monitor for signs of infections ( Fever, WBC) WBC trending down strep pneumonia and legionella urinary ag negative. Sputum cx 06/24: normal resp arianna. GI/DVT prophylaxis Continue treatment plan. Thad Mccall MD June 26, 2016 09:48
[2016-06-26 10:19] LABS: AUTOMATED NEUTROPHIL # 19.5 TH/MM3 (1.8-7.7); BASOPHIL # 0.1 TH/MM3 (0-0.2); BASOPHIL % 0.3 % (0.0-2.0); HEMATOCRIT 27.3 % (35.0-46.0); LYMPH % 1.8 % (9.0-44.0); LYMPHOCYTE # 0.4 TH/MM3 (1.0-4.8); MEAN CELL VOLUME 103.5 FL (80.0-100.0); MEAN CORPUSCULAR HEMOGLOBIN 34.3 PG (27.0-34.0); MEAN CORPUSCULAR HGB CONC 33.1 % (32.0-36.0); MONO % 4.3 % (0.0-8.0); NEUT % 93.6 % (16.0-70.0); PLATELET COUNT 180 TH/MM3 (150-450); RED BLOOD COUNT 2.64 MIL/MM3 (4.00-5.30); RED CELL DISTRIBUTION WIDTH 15.4 % (11.6-17.2); WHITE BLOOD COUNT 20.8 TH/MM3 (4.0-11.0)
[2016-06-26 10:21] LABS: HEMO FLAGS AUTO DIFF
[2016-06-26] MEDS: RESP: BUDESONIDE 0.5 MG/2 ML NEB NEB SCH ×2 (10:31→20:21)
[2016-06-26] MEDS ORDERED: guaiFENesin/CODEINE SYRUP 200 MG/20 MG/10 ML CUP PO PRN (10:45)
[2016-06-26] MEDS ORDERED: LORazepam 1 MG TAB PO ONE (10:45)
--- NOTE | 2016-06-26 10:51 | HHI.CCPN ---
Subjective Remarks/Hospital Course This is a 31-year-old female without prior past medical history who initially presented to the hospital on 06/10 complaining of shortness of breath. At that time she was found to have end-stage liver disease which is being worked up. During his hospital admission she underwent drainage of pleural effusion for hypoxia. She presented in rapid response from the floor for worsening hypoxia. When I evaluated the patient on her arrival to the intensive care unit she was tach state on her cell phone and appeared in no apparent distress. However , she was significantly hypoxic with SPO2 of 85% on a nonrebreather. Despite the fact that she did not appear in distress, she did have trouble speaking in complete sentences, and was quite dyspneic on my evaluation. This limited the amount of history was able to obtain from her. She did state this was similar to her presenting shortness of breath almost a week ago. She denies any associated symptoms, and denies any changes today compared to prior days. Her chest x-ray does appear to have significant pulmonary edema with associated bilateral pleural effusions. Her BNP was elevated a few days ago and it is difficult to assess her volume status given that she has not had strict I's and O's. She does appear to be up 8 kg from admission weight. 5: Currently on high flow nasal cannula. Negative PFO on KARAN today. Appears comfortable. Bilateral infiltrates CT Chest Yesterday.. Still feels short of breath.. Received 120 mg IV Lasix last night 06/23: Currently on partial nonrebreather. Intermittent BiPAP overnight. States she is short of breath but appears comfortable. Not tachypneic or using accessory muscles. 06/24 Patient placed on BIPAP overnight 11/24 with 75% FIO2. Afebrile. 06/25: On BiPAP 1 hour last night. Satting 99% currently on partial nonrebreather. Appears comfortable not using accessory muscles. Tolerating diet. Subjective 06/26: Complaining of pleuritic chest pain/anxiety this a.m. appears quite anxious. Currently receiving Bumex per pulmonary recommendations. Chest pain is pleuritic likely associated with cough. Objective Vital Signs Date Time Temp Pulse Resp B/P Pulse Ox O2 Delivery O2 Flow Rate FiO2 06/26/16 06:00 127 06/26/16 04:00 97.8 32 108/63 96 06/26/16 00:30 Bi-Pap 65 5/6/17 21:22 14.00 Intake and Output 06/25/16 06/25/16 06/26/16 08:00 16:00 00:00 Intake Total 134 ml 826 ml 613 ml Output Total 250 ml 850 ml 550 ml Balance -116 ml -24 ml 63 ml Result Diagram: 06/26/16 1012 06/26/16 0458 Other Results Microbiology Date/Time Procedure Status Source Growth 06/24/16 11:48 Legionella Antigen - Final Complete Urine Catheterized Urine PRESUMPTIVE NEGATIVE FOR LEGIONELLA P... 06/24/16 11:48 Streptococcus pneumoniae Antigen (M - Final Complete Urine Catheterized Urine PRESUMPTIVE NEGATIVE FOR STREPTOCOCCU... Imaging Last Impressions Chest X-Ray 06/25/16 0000 Signed Impressions: Service Date/Time: Saturday, June 25, 2016 10:39 - CONCLUSION: 1. Mild increased opacity in left perihilar region with improved opacity in the right upper lobe. 2. Small right effusion. Melo Kitchen MD Chest CT 06/21/16 0000 Signed Impressions: Service Date/Time: Tuesday, June 21, 2016 21:50 - CONCLUSION: Widespread areas of consolidation involving the lower lobes bilaterally and the upper lobes bilaterally. This is nonspecific. It could be infectious. There are moderate bilateral pleural effusions and mild ascites. Qasim Phillips MD Abdomen Ultrasound 06/17/16 0000 Signed Impressions: Service Date/Time: Friday, June 17, 2016 10:00 - CONCLUSION: There is not enough fluid for safe paracentesis.. Harish Chaudhary MD FACR Thoracentesis Ultrasound 06/16/16 0000 Signed Impressions: Service Date/Time: May 14:13 - CONCLUSION: Uncomplicated ultrasound guided thoracentesis. Qasim Osuna MD Abdomen/Pelvis CT 06/10/16 0651 Signed Impressions: Service Date/Time: Friday, June 10, 2016 07:22 - CONCLUSION: 1. Enlarged fatty liver. 2. Mild splenomegaly. 3. Small to moderate amount of ascites within the abdomen and pelvis. 4. Small right pleural effusion. 5. Small hiatal hernia. 6. Cholelithiasis. Juan Leblanc MD Hepatobiliary Scan Nuclear Medicine 06/10/16 0000 Signed Impressions: Service Date/Time: Friday, June 10, 2016 12:50 - CONCLUSION: 1. Scintigraphic findings suggesting hepatocellular dysfunction with sluggish washout and persistent background activity. 2. Due to limited excretion, it is difficult to identify the extrahepatic biliary tree. However, activity is seen in the small bowel by 10 minutes. 3. No scintigraphic findings of acute cholecystitis. Bob Lara MD Cholangiopancreatography MRI 06/10/16 0000 Signed Impressions: Service Date/Time: Friday, June 10, 2016 12:25 - CONCLUSION: 1. Hepatosplenomegaly with significantly and inhomogeneously fatty infiltrated liver. 2. Slight ascites and bilateral pleural effusions. 3. Cholelithiasis and pericholecystic fluid and cholecystitis is not excluded. Mert Laurent MD Objective Remarks GENERAL: 31-year-old female, critically ill currently resting in bed on partial nonrebreather SKIN: Warm and dry. No rash HEAD: Atraumatic. Normocephalic. EYES: Pupils equal and round about 2-3 mm bilaterally and reactive. No scleral icterus. No injection or drainage. ENT: No nasal bleeding or discharge. Mucous membranes pink and moist. NECK: Trachea midline. No JVD. CARDIOVASCULAR: Tachycardic, RR. S1, S2 without murmur, clicks, gallops or rubs RESPIRATORY: Coarse crackles appreciated throughout lung dean. Diminished at bases. No wheeze GASTROINTESTINAL: Abdomen soft, non-tender, somewhat protuberant. Hypoactive bowel sounds appreciated MUSCULOSKELETAL: Extremities with trace lower extremity edema. No obvious deformities. NEUROLOGICAL: Awake and alert. No obvious cranial nerve deficits. Motor grossly within normal limits. Five out of 5 muscle strength in the arms and legs. Normal speech. PSYCHIATRIC: Appropriate mood and affect; insight and judgment normal. Procedures 06/16- thoracentesis 500 cc out- transudate A/P Assessment and Plan Neuro/Psych: EtOH Continue thiamine folate and multivitamin daily for EtOH use Ativan 0.5 every 8 hours when necessary anxiety Leming for pain Added morphine for breakthrough pain. CV: Monitor HR and BP keep MAP>65mmHg Echo showed EF 50-55%, no regional wall motion abnormality Resp: Acute hypoxemic respiratory failure Continue with oxygen keep sat >92% Duo nebs every 4 hours/every 2 hours. Dyspnea NIPPV for resp distress CT chest - bilateral infiltrates right upper greater than left upper and bilateral lower lobes, mild bilateral pleural effusions Currently on Pulmicort twice a day Status post thoracentesis 800 cc transudative right side 06/16 - On Solumedrol 40 milligrams IV every 8 Received Bumex 1 mg IV 1 today for ulnar edema/pleural effusions. Check CT pulmonary and again today. Unlikely PE but with chest pain follow GI: Cholelithiasis Abdominal ascites Elevated transaminases Elevated bilirubin Elevated anti-1 antitrypsin 06/10 - MRCP - hepatosplenomegaly. - Ascites - cannot rule out cholecystitis 06/10 - HIDA scan - negative for cholecystitis Seen by gastroenterology. Negative hepatitis, AMA, ASMA, AMA and ceruloplasmin. Had signed off Currently on regular diet Hepatitis profile negative Continue pentoxifylline 400 mg by mouth 3 times a day : Monitor renal function, I/O's, electrolytes replacement per protocol. Endo: Sliding scale insulin for glycemic control Heme: Leukocytosis Macrocytic anemia Monitor CBC ID: Change abx to Zosyn give vanco 1gram x1 dose , d/c Levaquin monitor for signs of infections ( Fever, WBC) 5/5 sputum cx, strep pneumonia and Legionella urinary Ag all negative Pertinent cultures 06/10 - blood cultures 4 - 1 out of 4 Prop Acnes MSK: PT evaluate and treat Currently on Os-Zac twice a day Access - Utilize peripheral IV. Central line if indicated Prophylaxis - GI - Protonix - DVT - SCD/ coagulopathic with INR 1.6 Critical Care: The total critical care time was 35 minutes. Time to perform other separately billable procedures was not included in the critical care time. Wang Jacobs MD June 26, 2016 10:51
[2016-06-26] MEDS ORDERED: BUMETANIDE INJ 1 MG/4 ML VIAL IV PUSH ONE (11:00)
[2016-06-26 11:01] LABS: NEUTROPHIL # MANUAL DIFF 19.6 TH/MM3 (1.8-7.7); PLATELET ESTIMATE SMEAR NORMAL (NORMAL); PLATELET MORPHOLOGY NORMAL (NORMAL); POLYS (SEG NEUTROPHILS) 94 % (16-70); WBC DIFF SAMPLE 100
[2016-06-26 11:02] LABS: SCAN/DIFF FINAL DIFF MANUAL
[2016-06-26] MEDS: MORPHINE SULFATE 4 MG/ML INJ IV PUSH PRN (11:39)
[2016-06-26] MEDS ORDERED: IOHEXOL 350 MG/ML 10 ML VIAL (for RAD DIAG) IV ONE (15:25)
--- NOTE | 2016-06-26 15:47 | RADRPT ---
EXAM DATE/TIME: 06/26/2016 15:16 [facility] COMPARISON: No previous studies available for comparison. INDICATIONS : Shortness of breath; chest pain. IV CONTRAST: 75 cc Omnipaque 350 (iohexol) IV RADIATION DOSE: 6.88 CTDIvol (mGy) MEDICAL HISTORY : Liver disease. SURGICAL HISTORY : None. ENCOUNTER: Initial ACUITY: 1 day PAIN SCALE: 5/10 LOCATION: Bilateral chest TECHNIQUE: Volumetric scanning of the chest was performed using a pulmonary embolism protocol MIP images were re constructed. Using automated exposure control and adjustment of the mA and/or kV according to patien t size, radiation dose was kept as low as reasonably achievable to obtain optimal diagnostic quality images. FINDINGS: No filling defects identified to suggest pulmonary embolic disease. There is worsening of bilateral d ense consolidation in both lungs with multifocal air bronchograms. Differential diagnosis includes pn eumonia or developing ARDS. There is a moderate right effusion and smaller left effusion similar to p rior study on June 2. Upper abdomen reveals a large diffusely heterogeneous liver compatible with hepatocellular disease. T here is mild ascites. CONCLUSION: 1. Negative for pulmonary embolus. 2. Worsening bilateral dense air space consolidation in both lungs. 3. Relatively stable bilateral pleural effusions, right greater than left. 4. Diffuse liver disease with mild ascites and hepatic enlargement. Silvino Jordan MD on June 26, 2016 at 15:40 Board Certified Radiologist. This report was verified electronically.
[2016-06-26] MEDS: HEPARIN SODIUM - SQ 10,000 UNITS/ML VIAL SQ SCH (19:56)
[2016-06-27] VITALS (17 sets, daily range): BP systolic 108–125; BP diastolic 62–81; PULSE 105–128; RESP 20–28; TEMP 97.9–98.7; O2SAT 88–100
[2016-06-27] MEDS: PIPERACIL-TAZO 4.5 GM PREMIX 100 ML IV SCH ×4 (00:19→17:33)
[2016-06-27] MEDS: INSULIN NovoLIN REGULAR SUPPLEMENTAL SCALE SQ SCH ×4 (00:19→17:33)
[2016-06-27] MEDS: LORazepam 0.5 MG TAB PO PRN ×2 (00:26→17:34)
[2016-06-27] MEDS: MORPHINE SULFATE 4 MG/ML INJ IV PUSH PRN ×3 (03:42→21:10)
[2016-06-27] MEDS: RESP: ALBUTEROL 2.5 MG/IPRATROPIUM 0.5 MG NEB (SCH) NEB ×7 (04:12→23:34)
[2016-06-27] MEDS: methylPREDNISolone SOD SUCC 40 MG/1 ML VIAL IV PUSH SCH ×3 (05:25→20:57)
[2016-06-27] MEDS: ACETAMINOPHEN/HYDROcodone 325 MG/5 MG TAB PO PRN ×2 (05:25→14:52)
[2016-06-27] MEDS: PENTOXIFYLLINE 400 MG CONTROLLED RELEASE TAB PO SCH ×3 (05:25→20:58)
[2016-06-27 05:50] LABS: HEMATOCRIT 28.7 % (35.0-46.0); MEAN CELL VOLUME 104.5 FL (80.0-100.0); MEAN CORPUSCULAR HEMOGLOBIN 32.8 PG (27.0-34.0); MEAN CORPUSCULAR HGB CONC 31.4 % (32.0-36.0); PLATELET COUNT 171 TH/MM3 (150-450); RED BLOOD COUNT 2.75 MIL/MM3 (4.00-5.30); RED CELL DISTRIBUTION WIDTH 15.3 % (11.6-17.2); REVIEW FLAG FINAL; WHITE BLOOD COUNT 19.5 TH/MM3 (4.0-11.0)
--- NOTE | 2016-06-27 05:55 | RADRPT ---
EXAM DATE/TIME: 06/27/2016 04:15 [facility] COMPARISON: CHEST SINGLE AP, June 25, 2016, 10:39. INDICATIONS : Shortness of breath, possible pulmonary disease. MEDICAL HISTORY : None. SURGICAL HISTORY : None. ENCOUNTER: Subsequent ACUITY: 3 weeks PAIN SCORE: Non-responsive. LOCATION: Bilateral chest FINDINGS: Single portable frontal view of the chest shows worsening consolidation involving both lungs. Small r ight effusion. Heart is normal in size. CONCLUSION: Worsening bilateral infiltrates. Small right effusion. Chapo Egan Jr., MD on June 27, 2016 at 5:53 Board Certified Radiologist. This report was verified electronically.
[2016-06-27 05:59] LABS: APTT (PATIENT) 31.4 SEC (24.3-30.1); INTERNATIONAL NORMALIZED RATIO 1.5 RATIO; PROTHROMBIN TIME - PATIENT 16.7 SEC (9.8-11.6)
[2016-06-27 06:14] LABS: BICARBONATE 31.7 MEQ/L (21.0-32.0); MAGNESIUM 2.1 MG/DL (1.5-2.5); POTASSIUM 3.4 MEQ/L (3.5-5.1)
[2016-06-27 06:18] LABS: INDIRECT BILIRUBIN 1.3 MG/DL (0.0-0.8); TOTAL BILIRUBIN ADULT 3.6 MG/DL (0.2-1.0)
--- NOTE | 2016-06-27 07:52 | HHI.CCPN ---
Subjective Remarks/Hospital Course This is a 31-year-old female without prior past medical history who initially presented to the hospital on 06/10 complaining of shortness of breath. At that time she was found to have end-stage liver disease which is being worked up. During his hospital admission she underwent drainage of pleural effusion for hypoxia. She presented in rapid response from the floor for worsening hypoxia. When I evaluated the patient on her arrival to the intensive care unit she was tach state on her cell phone and appeared in no apparent distress. However , she was significantly hypoxic with SPO2 of 85% on a nonrebreather. Despite the fact that she did not appear in distress, she did have trouble speaking in complete sentences, and was quite dyspneic on my evaluation. This limited the amount of history was able to obtain from her. She did state this was similar to her presenting shortness of breath almost a week ago. She denies any associated symptoms, and denies any changes today compared to prior days. Her chest x-ray does appear to have significant pulmonary edema with associated bilateral pleural effusions. Her BNP was elevated a few days ago and it is difficult to assess her volume status given that she has not had strict I's and O's. She does appear to be up 8 kg from admission weight. 5: Currently on high flow nasal cannula. Negative PFO on KARAN today. Appears comfortable. Bilateral infiltrates CT Chest Yesterday.. Still feels short of breath.. Received 120 mg IV Lasix last night 06/23: Currently on partial nonrebreather. Intermittent BiPAP overnight. States she is short of breath but appears comfortable. Not tachypneic or using accessory muscles. 06/24 Patient placed on BIPAP overnight 11/24 with 75% FIO2. Afebrile. 06/25: On BiPAP 1 hour last night. Satting 99% currently on partial nonrebreather. Appears comfortable not using accessory muscles. Tolerating diet. Subjective 06/26: Complaining of pleuritic chest pain/anxiety this a.m. appears quite anxious. Currently receiving Bumex per pulmonary recommendations. Chest pain is pleuritic likely associated with cough. 06/27 Patient states she is breathing better however CXR today showed worsening b/ l pulm infiltrates, afebrile. Objective Vital Signs Date Time Temp Pulse Resp B/P Pulse Ox O2 Delivery O2 Flow Rate FiO2 06/27/16 06:25 20 06/27/16 06:00 126 06/27/16 04:00 97.9 112/69 100 06/27/16 04:00 Partial Non-Rebreather 06/27/16 00:35 55 06/26/16 20:25 5.00 Intake and Output 06/26/16 06/26/16 06/27/16 08:00 16:00 00:00 Intake Total 371 ml 788 ml Output Total 450 ml 2000 ml Balance -79 ml -1212 ml Result Diagram: 06/27/16 0508 06/27/16 0508 Other Results Laboratory Tests Test 06/26/16 06/27/16 10:12 05:08 White Blood Count 20.8 TH/MM3 19.5 TH/MM3 Red Blood Count 2.64 MIL/MM3 2.75 MIL/MM3 Hemoglobin 9.1 GM/DL 9.0 GM/DL Hematocrit 27.3 % 28.7 % Mean Corpuscular Volume 103.5 FL 104.5 FL Mean Corpuscular Hemoglobin 34.3 PG 32.8 PG Mean Corpuscular Hemoglobin 33.1 % 31.4 % Concent Red Cell Distribution Width 15.4 % 15.3 % Platelet Count 180 TH/MM3 171 TH/MM3 Mean Platelet Volume 9.9 FL 10.3 FL Neutrophils (%) (Auto) 93.6 % Lymphocytes (%) (Auto) 1.8 % Monocytes (%) (Auto) 4.3 % Eosinophils (%) (Auto) 0.0 % Basophils (%) (Auto) 0.3 % Neutrophils # (Auto) 19.5 TH/MM3 Lymphocytes # (Auto) 0.4 TH/MM3 Monocytes # (Auto) 0.9 TH/MM3 Eosinophils # (Auto) 0.0 TH/MM3 Basophils # (Auto) 0.1 TH/MM3 CBC Comment AUTO DIFF Differential Total Cells 100 Counted Neutrophils % (Manual) 94 % Lymphocytes % 3 % Monocytes % 3 % Neutrophils # (Manual) 19.6 TH/MM3 Differential Comment FINAL DIFF MANUAL Platelet Estimate NORMAL Platelet Morphology Comment NORMAL Prothrombin Time 16.7 SEC Prothromb Time International 1.5 RATIO Ratio Activated Partial 31.4 SEC Thromboplast Time Sodium Level 138 MEQ/L Potassium Level 3.4 MEQ/L Chloride Level 98 MEQ/L Carbon Dioxide Level 31.7 MEQ/L Anion Gap 8 MEQ/L Blood Urea Nitrogen 10 MG/DL Creatinine 0.53 MG/DL Estimat Glomerular Filtration 133 ML/MIN Rate Random Glucose 130 MG/DL Calcium Level 8.7 MG/DL Phosphorus Level 2.1 MG/DL Magnesium Level 2.1 MG/DL Total Bilirubin 3.6 MG/DL Direct Bilirubin 2.3 MG/DL Indirect Bilirubin 1.3 MG/DL Aspartate Amino Transf 193 U/L (AST/SGOT) Alanine Aminotransferase 66 U/L (ALT/SGPT) Alkaline Phosphatase 170 U/L Total Protein 5.9 GM/DL Albumin 2.5 GM/DL Lipase 188 U/L Imaging Last Impressions Chest X-Ray 06/27/16 0000 Signed Impressions: Service Date/Time: Monday, June 27, 2016 04:15 - CONCLUSION: Worsening bilateral infiltrates. Small right effusion. Chapo Egan Jr., MD CT Angiography 06/26/16 0000 Signed Impressions: Service Date/Time: Sunday, June 26, 2016 15:16 - CONCLUSION: 1. Negative for pulmonary embolus. 2. Worsening bilateral dense air space consolidation in both lungs. 3. Relatively stable bilateral pleural effusions, right greater than left. 4. Diffuse liver disease with mild ascites and hepatic enlargement. Silvino Jordan MD Chest CT 06/21/16 0000 Signed Impressions: Service Date/Time: Tuesday, June 21, 2016 21:50 - CONCLUSION: Widespread areas of consolidation involving the lower lobes bilaterally and the upper lobes bilaterally. This is nonspecific. It could be infectious. There are moderate bilateral pleural effusions and mild ascites. Qasim Phillips MD Abdomen Ultrasound 06/17/16 0000 Signed Impressions: Service Date/Time: Friday, June 17, 2016 10:00 - CONCLUSION: There is not enough fluid for safe paracentesis.. Harish Chaudhary MD FACR Thoracentesis Ultrasound 06/16/16 0000 Signed Impressions: Service Date/Time: May 14:13 - CONCLUSION: Uncomplicated ultrasound guided thoracentesis. Qasim Osuna MD Abdomen/Pelvis CT 06/10/16 0651 Signed Impressions: Service Date/Time: Friday, June 10, 2016 07:22 - CONCLUSION: 1. Enlarged fatty liver. 2. Mild splenomegaly. 3. Small to moderate amount of ascites within the abdomen and pelvis. 4. Small right pleural effusion. 5. Small hiatal hernia. 6. Cholelithiasis. Juan Leblanc MD Hepatobiliary Scan Nuclear Medicine 06/10/16 0000 Signed Impressions: Service Date/Time: Friday, June 10, 2016 12:50 - CONCLUSION: 1. Scintigraphic findings suggesting hepatocellular dysfunction with sluggish washout and persistent background activity. 2. Due to limited excretion, it is difficult to identify the extrahepatic biliary tree. However, activity is seen in the small bowel by 10 minutes. 3. No scintigraphic findings of acute cholecystitis. Bob Lara MD Cholangiopancreatography MRI 06/10/16 0000 Signed Impressions: Service Date/Time: Friday, June 10, 2016 12:25 - CONCLUSION: 1. Hepatosplenomegaly with significantly and inhomogeneously fatty infiltrated liver. 2. Slight ascites and bilateral pleural effusions. 3. Cholelithiasis and pericholecystic fluid and cholecystitis is not excluded. Mert Laurent MD Objective Remarks GENERAL: 31-year-old female, critically ill currently resting in bed on partial nonrebreather SKIN: Warm and dry. No rash HEAD: Atraumatic. Normocephalic. EYES: Pupils equal and round about 2-3 mm bilaterally and reactive. No scleral icterus. No injection or drainage. ENT: No nasal bleeding or discharge. Mucous membranes pink and moist. NECK: Trachea midline. No JVD. CARDIOVASCULAR: Tachycardic, RR. S1, S2 without murmur, clicks, gallops or rubs RESPIRATORY: Coarse crackles appreciated throughout lung dean. Diminished at bases. No wheeze GASTROINTESTINAL: Abdomen soft, non-tender, somewhat protuberant. Hypoactive bowel sounds appreciated MUSCULOSKELETAL: Extremities with trace lower extremity edema. No obvious deformities. NEUROLOGICAL: Awake and alert. No obvious cranial nerve deficits. Motor grossly within normal limits. Five out of 5 muscle strength in the arms and legs. Normal speech. PSYCHIATRIC: Appropriate mood and affect; insight and judgment normal. Procedures 06/16- thoracentesis 500 cc out- transudate A/P Assessment and Plan Neuro/Psych: EtOH Continue thiamine folate and multivitamin daily for EtOH use Ativan 0.5 every 8 hours when necessary anxiety Bozman for pain Added morphine for breakthrough pain. CV: Monitor HR and BP keep MAP>65mmHg. Place on Lopressor 12.5mg BID for rate control. Echo showed EF 50-55%, no regional wall motion abnormality Resp: Acute hypoxemic respiratory failure Continue with oxygen keep sat >92% Bronchodilators ( DuoNeb, Pulmicort) NIPPV for resp distress CXR today showed worsening b/l pulm infiltrates 06/26 CTA chest : No PE, Worsening bilateral dense air space consolidation in both lungs. Diffuse liver disease with mild ascites and hepatic enlargement Status post thoracentesis 800 cc transudative right side 06/16 - On Solumedrol 40 milligrams IV every 8 GI: Cholelithiasis Abdominal ascites Elevated transaminases Elevated bilirubin Elevated anti-1 antitrypsin 06/10 - MRCP - hepatosplenomegaly. - Ascites - cannot rule out cholecystitis 06/10 - HIDA scan - negative for cholecystitis Seen by gastroenterology. Negative hepatitis, AMA, ASMA, AMA and ceruloplasmin. Had signed off Currently on regular diet Hepatitis profile negative Continue pentoxifylline 400 mg by mouth 3 times a day : Monitor renal function, I/O's, electrolytes replacement per protocol. Place on NS@50ml/hr Endo: Sliding scale insulin for glycemic control Heme: Leukocytosis Macrocytic anemia Monitor CBC ID: Continue with abx ( Zosyn) add Vanco, reconsult ID, Check sputum cx, UA with cx if indicated. Follow up on BC from 06/26-NGTD Monitor for signs of infections ( Fever, WBC) 06/24 sputum cx, strep pneumonia and Legionella urinary Ag all negative MSK: PT evaluate and treat Currently on Os-Zac twice a day Access - Utilize peripheral IV. Central line if indicated Prophylaxis - GI - Protonix - DVT - SCD/ coagulopathic with INR 1.5 Level 3 Thad Mccall MD June 27, 2016 07:52
[2016-06-27] MEDS ORDERED: PILL SPLITTER OTHER PRN (08:00)
[2016-06-27] MEDS: VANCOMYCIN INJ 1,000 MG in SODIUM CHLOR 0.9% 250 ML INJ 250 ML IV SCH ×2 (08:27→20:56)
[2016-06-27] MEDS: SODIUM CHLOR 0.9% 1000 ML INJ 1,000 ML IV SCH (08:27)
[2016-06-27] MEDS: CALCIUM CARBONATE 1.25 GM (CA 500 MG) TAB PO SCH ×2 (08:28→20:58)
[2016-06-27] MEDS: FOLIC ACID 1 MG TAB PO SCH (08:28)
[2016-06-27] MEDS: guaiFENesin E.R. 600 MG TAB PO SCH ×2 (08:28→20:58)
[2016-06-27] MEDS: PANTOPRAZOLE SOD 40 MG DELAYED RELEASE TAB PO SCH (08:28)
[2016-06-27] MEDS: METOPROLOL TARTRATE 25 MG TAB PO SCH ×2 (08:28→20:59)
[2016-06-27] MEDS: THIAMINE HCL 100 MG TAB PO SCH (08:28)
[2016-06-27] MEDS: SODIUM CHLORIDE 0.9% FLUSH 10 ML FLUSH IV FLUSH SCH ×2 (08:28→20:57)
[2016-06-27] MEDS: HEPARIN SODIUM - SQ 10,000 UNITS/ML VIAL SQ SCH ×2 (08:28→20:58)
[2016-06-27] MEDS: MULTIVITAMIN TAB PO SCH (08:28)
[2016-06-27] MEDS: RIFAXIMIN 550 MG TAB PO SCH ×2 (08:28→20:58)
[2016-06-27] MEDS: RESP: BUDESONIDE 0.5 MG/2 ML NEB NEB SCH ×2 (09:11→19:49)
[2016-06-27] MEDS ORDERED: POTASSIUM CHLOR 40 MEQ PREMIX 100 ML IV PRN ×2 (09:45)
[2016-06-27] MEDS ORDERED: MAGNESIUM SULFATE INJ 4 GM in SODIUM CHLORIDE 0.9% INJ 92 ML IV PRN (09:45)
[2016-06-27] MEDS ORDERED: POTASSIUM PHOSPHATE MONOBASIC 500 MG TAB PO/TUBE PRN (09:45)
[2016-06-27] MEDS ORDERED: SODIUM PHOSPHATE INJ 30 MMOL in SODIUM CHLOR 0.9% 250 ML INJ 240 ML IV PRN (09:45)
[2016-06-27] MEDS ORDERED: POTASSIUM CHLORIDE 25 MEQ EFFERVESCENT TAB PO PRN (09:45)
[2016-06-27] MEDS ORDERED: POTASSIUM PHOSPHATE MONOBASIC 500 MG TAB PO PRN (09:45)
[2016-06-27] MEDS ORDERED: POTASSIUM CHLOR 20 MEQ PREMIX 100 ML IV PRN ×2 (09:45)
[2016-06-27] MEDS ORDERED: MAGNESIUM OXIDE 400 MG TAB PO PRN (09:45)
[2016-06-27] MEDS ORDERED: MAGNESIUM SULFATE INJ 2 GM in SODIUM CHLORIDE 0.9% INJ 96 ML IV PRN (09:45)
--- NOTE | 2016-06-27 09:45 | HHI.IDPN ---
Subjective Subjective Remarks Notes reviewed Patient last seen 06/15 Evaluated initially for one (+) BC with Propionibacterium - felt to be a contaminant, and not treated, and patient taken off Abx Pulmonary has seen patient for pleural effusions - had tap, and fluid is a transudate On 06/21, developed hypoxemia, CTA with katie effusions and bilateral infiltrates Started on Abx and transferred to ICU NO PE on CT Also given steroids She has not been febrile Remains dyspneic and requiring O2 Doing some BIPAP at night, on VM currently Has been coughing a lot, moist, difficulty expectorating, but she is doing suctioning and secretions are greenish brown color, thick BC have been negative Sputum with normal arianna Legionella and Pneumococcal Ag negative WBC has been elevated She is on Solumedrol, Zosyn and Vancomycin Echo with good LV function C/O CP and upper abdominal pain Antibiotics Zosyn Vancomycin Lines PIV Past Medical History ETOH abuse Arthroscopic surgery to knee Allergies: Coded Allergies: No Known Allergies (Unverified , 06/10/16) Objective . Vital Signs Date Time Temp Pulse Resp B/P Pulse Ox O2 Delivery O2 Flow Rate FiO2 06/27/16 09:15 92 Venturi Mask 50 06/27/16 08:00 98.3 121 28 111/64 91 06/27/16 08:00 121 06/27/16 08:00 91 Partial Non-Rebreather 06/27/16 06:25 20 06/27/16 06:00 126 06/27/16 05:00 125 06/27/16 04:00 97.9 128 22 112/69 100 06/27/16 04:00 90 Partial Non-Rebreather 06/27/16 04:00 124 06/27/16 03:47 20 06/27/16 03:00 124 06/27/16 02:00 123 06/27/16 00:35 100 55 06/27/16 00:00 128 06/27/16 00:00 98.4 128 20 124/81 100 06/27/16 00:00 100 Bi-Pap 06/26/16 22:00 145 06/26/16 20:25 93 Nasal Cannula 5.00 06/26/16 20:00 92 Non-Rebreather 06/26/16 20:00 98.1 129 22 123/73 92 06/26/16 20:00 129 06/26/16 18:30 128 36 94 06/26/16 18:00 130 24 97 06/26/16 18:00 129 06/26/16 17:30 134 47 94 06/26/16 17:00 134 51 92 06/26/16 16:30 126 36 93 06/26/16 16:00 97.9 121 31 97 06/26/16 16:00 121 06/26/16 15:31 124 37 112/66 93 06/26/16 15:30 122 37 94 06/26/16 14:30 128 40 92 06/26/16 14:00 128 42 113/56 94 06/26/16 14:00 126 06/26/16 13:30 122 29 94 06/26/16 13:00 124 27 110/70 96 06/26/16 12:30 124 27 94 06/26/16 12:00 128 06/26/16 12:00 98.2 128 28 106/66 91 06/26/16 10:45 126 38 91 06/26/16 10:32 93 Partial Rebreather 14.00 06/26/16 10:30 123 45 84 06/26/16 10:15 121 41 93 06/26/16 10:00 126 06/26/16 10:00 126 42 129/75 93 06/26/16 09:45 124 45 06/26/16 06/26/16 06/27/16 14:59 22:59 06:59 Intake Total 788 ml 800 ml Output Total 2000 ml 450 ml Balance -1212 ml 350 ml Intake Oral 550 ml 600 ml IV Total 238 ml 200 ml Output Urine Total 2000 ml 450 ml # Bowel Movements 1 1 . Laboratory Tests Test 06/26/16 06/26/16 06/27/16 04:58 10:12 05:08 White Blood Count 18.3 TH/MM3 20.8 TH/MM3 19.5 TH/MM3 Red Blood Count 2.50 MIL/MM3 2.64 MIL/MM3 2.75 MIL/MM3 Hemoglobin 8.4 GM/DL 9.1 GM/DL 9.0 GM/DL Hematocrit 26.0 % 27.3 % 28.7 % Mean Corpuscular Volume 104.0 FL 103.5 FL 104.5 FL Mean Corpuscular Hemoglobin 33.6 PG 34.3 PG 32.8 PG Mean Corpuscular Hemoglobin 32.3 % 33.1 % 31.4 % Concent Red Cell Distribution Width 15.1 % 15.4 % 15.3 % Platelet Count 187 TH/MM3 180 TH/MM3 171 TH/MM3 Mean Platelet Volume 10.0 FL 9.9 FL 10.3 FL Neutrophils (%) (Auto) 93.6 % Lymphocytes (%) (Auto) 1.8 % Monocytes (%) (Auto) 4.3 % Eosinophils (%) (Auto) 0.0 % Basophils (%) (Auto) 0.3 % Neutrophils # (Auto) 19.5 TH/MM3 Lymphocytes # (Auto) 0.4 TH/MM3 Monocytes # (Auto) 0.9 TH/MM3 Eosinophils # (Auto) 0.0 TH/MM3 Basophils # (Auto) 0.1 TH/MM3 CBC Comment AUTO DIFF Differential Total Cells 100 Counted Neutrophils % (Manual) 94 % Lymphocytes % 3 % Monocytes % 3 % Neutrophils # (Manual) 19.6 TH/MM3 Differential Comment FINAL DIFF MANUAL Platelet Estimate NORMAL Platelet Morphology Comment NORMAL Laboratory Tests Test 06/26/16 06/27/16 04:58 05:08 Sodium Level 139 MEQ/L 138 MEQ/L Potassium Level 3.8 MEQ/L 3.4 MEQ/L Chloride Level 100 MEQ/L 98 MEQ/L Carbon Dioxide Level 30.0 MEQ/L 31.7 MEQ/L Anion Gap 9 MEQ/L 8 MEQ/L Blood Urea Nitrogen 9 MG/DL 10 MG/DL Creatinine 0.53 MG/DL 0.53 MG/DL Estimat Glomerular Filtration 133 ML/MIN 133 ML/MIN Rate Random Glucose 135 MG/DL 130 MG/DL Calcium Level 8.2 MG/DL 8.7 MG/DL Total Bilirubin 3.4 MG/DL 3.6 MG/DL Direct Bilirubin 2.4 MG/DL 2.3 MG/DL Indirect Bilirubin 1.0 MG/DL 1.3 MG/DL Aspartate Amino Transf 160 U/L 193 U/L (AST/SGOT) Alanine Aminotransferase 44 U/L 66 U/L (ALT/SGPT) Alkaline Phosphatase 159 U/L 170 U/L Total Protein 5.5 GM/DL 5.9 GM/DL Albumin 2.3 GM/DL 2.5 GM/DL Phosphorus Level 2.1 MG/DL Magnesium Level 2.1 MG/DL Lipase 188 U/L Microbiology Date/Time Procedure Status Source Growth 06/24/16 11:48 Legionella Antigen - Final Complete Urine Catheterized Urine PRESUMPTIVE NEGATIVE FOR LEGIONELLA P... 06/24/16 11:48 Streptococcus pneumoniae Antigen (M - Final Complete Urine Catheterized Urine PRESUMPTIVE NEGATIVE FOR STREPTOCOCCU... 06/24/16 13:00 Gram Stain - Final Complete Sputum Expectorated Sputum 06/24/16 13:00 Sputum Culture - Final Complete Sputum Expectorated Sputum HEAVY GROWTH NORMAL RESPIRATORY ARIANNA 06/26/16 11:21 Aerobic Blood Culture Received Blood Peripheral Pending 06/26/16 11:21 Anaerobic Blood Culture Received Blood Peripheral Pending 06/26/16 11:22 Aerobic Blood Culture Received Blood Peripheral Pending 06/26/16 11:22 Anaerobic Blood Culture Received Blood Peripheral Pending Imaging Chest X-Ray 06/27/16 0000 Signed Impressions: Service Date/Time: Monday, June 27, 2016 04:15 - CONCLUSION: Worsening bilateral infiltrates. Small right effusion. Chapo Egan Jr., MD CT Angiography 06/26/16 0000 Signed Impressions: Service Date/Time: Sunday, June 26, 2016 15:16 - CONCLUSION: 1. Negative for pulmonary embolus. 2. Worsening bilateral dense air space consolidation in both lungs. 3. Relatively stable bilateral pleural effusions, right greater than left. 4. Diffuse liver disease with mild ascites and hepatic enlargement. Silvino Jordan MD Chest CT 06/21/16 0000 Signed Impressions: Service Date/Time: Tuesday, June 21, 2016 21:50 - CONCLUSION: Widespread areas of consolidation involving the lower lobes bilaterally and the upper lobes bilaterally. This is nonspecific. It could be infectious. There are moderate bilateral pleural effusions and mild ascites. Qasim Phillips MD Abdomen Ultrasound 06/17/16 0000 Signed Impressions: Service Date/Time: Friday, June 17, 2016 10:00 - CONCLUSION: There is not enough fluid for safe paracentesis.. Harish Chaudhary MD FACR Thoracentesis Ultrasound 06/16/16 0000 Signed Impressions: Service Date/Time: May 14:13 - CONCLUSION: Uncomplicated ultrasound guided thoracentesis. Qasim Osuna MD Abdomen/Pelvis CT 06/10/16 0651 Signed Impressions: Service Date/Time: Friday, June 10, 2016 07:22 - CONCLUSION: 1. Enlarged fatty liver. 2. Mild splenomegaly. 3. Small to moderate amount of ascites within the abdomen and pelvis. 4. Small right pleural effusion. 5. Small hiatal hernia. 6. Cholelithiasis. Juan Leblanc MD Hepatobiliary Scan Nuclear Medicine 06/10/16 0000 Signed Impressions: Service Date/Time: Friday, June 10, 2016 12:50 - CONCLUSION: 1. Scintigraphic findings suggesting hepatocellular dysfunction with sluggish washout and persistent background activity. 2. Due to limited excretion, it is difficult to identify the extrahepatic biliary tree. However, activity is seen in the small bowel by 10 minutes. 3. No scintigraphic findings of acute cholecystitis. Bob Lara MD Cholangiopancreatography MRI 06/10/16 0000 Signed Impressions: Service Date/Time: Friday, June 10, 2016 12:25 - CONCLUSION: 1. Hepatosplenomegaly with significantly and inhomogeneously fatty infiltrated liver. 2. Slight ascites and bilateral pleural effusions. 3. Cholelithiasis and pericholecystic fluid and cholecystitis is not excluded. Mert Laurent MD Chest X-Ray 06/15/16 1259 Signed Impressions: Service Date/Time: Wednesday, June 15, 2016 13:21 - CONCLUSION: Slight worsening of right pleural effusion and right lung base consolidation, otherwise no change in left pleural effusion and probable mild case of pulmonary edema Mert Laurent MD Abdomen Ultrasound 06/14/16 0000 Signed Impressions: Service Date/Time: Tuesday, June 14, 2016 09:13 - CONCLUSION: 1. Small volume ascites Jamaal Eastman MD Hepatobiliary Scan Nuclear Medicine 06/10/16 0000 Signed Impressions: Service Date/Time: Friday, June 10, 2016 12:50 - CONCLUSION: 1. Scintigraphic findings suggesting hepatocellular dysfunction with sluggish washout and persistent background activity. 2. Due to limited excretion, it is difficult to identify the extrahepatic biliary tree. However, activity is seen in the small bowel by 10 minutes. 3. No scintigraphic findings of acute cholecystitis. Bob Lara MD Cholangiopancreatography MRI 06/10/16 0000 Signed Impressions: Service Date/Time: Friday, June 10, 2016 12:25 - CONCLUSION: 1. Hepatosplenomegaly with significantly and inhomogeneously fatty infiltrated liver. 2. Slight ascites and bilateral pleural effusions. 3. Cholelithiasis and pericholecystic fluid and cholecystitis is not excluded. Mert Laurent MD Physical Exam GENERAL: Awake and alert, tachypneic at rest, on VM currently. SKIN: cool and dry, jaundiced, has spider angiomata in her upper chest and UE. HEENT: Normocephalic, atraumatic. [place] conjunctivae. LEA. EOM full and intact. Has scleral icterus. No injection or drainage. Moist oral mucosa. No exudate. NECK: Trachea midline. No JVD or lymphadenopathy. Supple, nontender, no meningeal signs. CARDIOVASCULAR: Tachycardic. Regular rate and rhythm without murmurs, gallops , or rubs. RESPIRATORY: Bilateral rales, decreased at the bases. NO wheezing. Equal BS katie. GASTROINTESTINAL: Abdomen mildly distended, globular, has an enlarged liver, not tender on palpation. Bowel sounds present and normoactive. No guarding. No rebound. MUSCULOSKELETAL: Extremities without clubbing, cyanosis, or edema. No joint tenderness, effusion, or edema noted. No calf tenderness. NEUROLOGICAL: Awake and alert. Cranial nerves II through XII intact. Five out of 5 muscle strength in all muscle groups. Normal speech. PSYCH: Calm and cooperative LINE: PIV with no evidence of infection Assessment & Plan Remarks IMPRESSION Peristent leukocytosis, etiology, likely reactive - due to pulmonary process and steroids adding to it Bilateral pulmonary infiltrates, due tp HCAP Respiratory failure due to katie infiltrates One (+) BC with propionibacterium C/W contamination - skin arianna - can be pathogenic but usually in setting where hardware present ETOH hepatitis Diarrhea, C diff negative RECOMMENDATION Follow C/S Continue Zosyn and Vancomycin - adjust Abx once C/S finalized Follow CBC Taper steroids when ok with pulmonary Follow clinically Will determine course of Abx depending on her progress D/W Whit Magaña MD June 27, 2016 09:45
[2016-06-27] MEDS: SODIUM CHLORIDE 0.9% FLUSH 10 ML FLUSH IV FLUSH PRN (10:20)
[2016-06-27 16:47] LABS: BACTERIA, URINE RARE /hpf; BLOOD, URINE LARGE (NEG); COMMENT (UR) CULTURE INDICATED; CULTURE IF INDICATED CULTURE INDICATED; GLUCOSE,URINE NEG (NEG); KETONE, URINE TRACE mg/dL (NEG); NITRITE,URINE NEG (NEG); SQUAMOUS EPITHELIAL CELL URINE 1 /hpf (0-5); URINE COLOR RED (YELLW/STRAW)
--- NOTE | 2016-06-27 19:36 | HHI.PR ---
Subjective Remarks 06/26 Patient is off BIPAP. Weaned to 5LNC . Afebrile. Feels abd getting bigger Tachycardic. Objective Vital Signs Vital Signs Date Time Temp Pulse Resp B/P Pulse Ox O2 Delivery O2 Flow Rate FiO2 06/27/16 18:00 118 06/27/16 16:00 97.9 113 21 112/71 91 06/27/16 16:00 113 06/27/16 16:00 91 Nasal Cannula 6.00 06/27/16 14:00 117 06/27/16 12:00 98.0 107 22 108/62 88 06/27/16 12:00 88 Venturi Mask 6.00 50 06/27/16 12:00 107 06/27/16 10:00 105 06/27/16 09:15 92 Venturi Mask 50 06/27/16 08:00 98.3 121 28 111/64 91 06/27/16 08:00 121 06/27/16 08:00 91 Partial Non-Rebreather 06/27/16 06:25 20 06/27/16 06:00 126 06/27/16 05:00 125 06/27/16 04:00 97.9 128 22 112/69 100 06/27/16 04:00 90 Partial Non-Rebreather 06/27/16 04:00 124 06/27/16 03:47 20 06/27/16 03:00 124 06/27/16 02:00 123 06/27/16 00:35 100 55 06/27/16 00:00 128 06/27/16 00:00 98.4 128 20 124/81 100 06/27/16 00:00 100 Bi-Pap 06/26/16 22:00 145 06/26/16 20:25 93 Nasal Cannula 5.00 06/26/16 20:00 92 Non-Rebreather 06/26/16 20:00 98.1 129 22 123/73 92 06/26/16 20:00 129 I/O 06/26/16 06/26/16 06/26/16 06/27/16 06/27/16 06/27/16 07:00 15:00 23:00 07:00 15:00 23:00 Intake Total 371 ml 788 ml 800 ml 1684 ml Output Total 450 ml 2000 ml 450 ml 400 ml Balance -79 ml -1212 ml 350 ml 1284 ml Intake Oral 240 ml 550 ml 600 ml 720 ml IV Total 131 ml 238 ml 200 ml 964 ml Output Urine Total 450 ml 2000 ml 450 ml 400 ml # Bowel Movements 1 1 1 1 Result Diagram: 06/27/1650706/27/16 050 Objective Remarks GENERAL: Patient is 31 yo on partial rebreather SKIN: Warm and dry. HEAD: Normocephalic. EYES: No scleral icterus. No injection or drainage. NECK: Supple, trachea midline. No JVD or lymphadenopathy. CARDIOVASCULAR: Tachycardic without murmurs, gallops, or rubs. RESPIRATORY: Breath sounds equal bilaterally. Few coarse BS GASTROINTESTINAL: Abdomen soft, non-tender, nondistended. MUSCULOSKELETAL: No cyanosis, or edema. Neuro: Awake and alert A/P Assessment and Plan Resp Insuff Pneumonia Pleural effusion, s/p Thoracentesis Leukocytosis Anemia Alcohlic hepatitis ETOH use Nicotine use PLAN: Continue with oxygen keep sat >92% Bronchodilators, IS CXR from 06/25: Mild increased opacity in left perihilar region with improved opacity in the right upper lobe. Small right effusion. Currently on Pulmicort twice a day/DuoNeb Status post thoracentesis 800 cc transudative right side 06/16 - On Solumederol 40 IV every 8, diurese with Bumex 1mg x1 Continue with abx (Zosyn), Monitor for signs of infections strep pneumonia and legionella urinary ag negative. Sputum cx 06/24: normal resp arianna. GI/DVT prophylaxis Continue treatment plan. Tomi Mckeon MD June 27, 2016 19:36
[2016-06-28] VITALS (20 sets, daily range): BP systolic 106–142; BP diastolic 57–91; PULSE 97–119; RESP 20–46; TEMP 98–98.8; O2SAT 86–97
[2016-06-28] MEDS: PIPERACIL-TAZO 4.5 GM PREMIX 100 ML IV SCH ×4 (00:33→16:34)
[2016-06-28] MEDS: INSULIN NovoLIN REGULAR SUPPLEMENTAL SCALE SQ SCH ×4 (00:39→17:12)
[2016-06-28] MEDS: SODIUM CHLOR 0.9% 1000 ML INJ 1,000 ML IV SCH (00:47)
[2016-06-28] MEDS: MORPHINE SULFATE 4 MG/ML INJ IV PUSH PRN ×4 (00:56→23:11)
[2016-06-28] MEDS: RESP: ALBUTEROL 2.5 MG/IPRATROPIUM 0.5 MG NEB (SCH) NEB ×3 (03:45→10:42)
[2016-06-28] MEDS: methylPREDNISolone SOD SUCC 40 MG/1 ML VIAL IV PUSH SCH ×2 (05:43→21:14)
[2016-06-28] MEDS: PENTOXIFYLLINE 400 MG CONTROLLED RELEASE TAB PO SCH ×3 (05:43→22:14)
[2016-06-28 05:54] LABS: AUTOMATED NEUTROPHIL # 18.3 TH/MM3 (1.8-7.7); BASOPHIL # 0.1 TH/MM3 (0-0.2); BASOPHIL % 0.3 % (0.0-2.0); HEMATOCRIT 27.7 % (35.0-46.0); LYMPH % 2.1 % (9.0-44.0); LYMPHOCYTE # 0.4 TH/MM3 (1.0-4.8); MEAN CELL VOLUME 103.5 FL (80.0-100.0); MEAN CORPUSCULAR HEMOGLOBIN 33.3 PG (27.0-34.0); MEAN CORPUSCULAR HGB CONC 32.2 % (32.0-36.0); MONO % 5.3 % (0.0-8.0); NEUT % 92.3 % (16.0-70.0); PLATELET COUNT 169 TH/MM3 (150-450); RED BLOOD COUNT 2.68 MIL/MM3 (4.00-5.30); RED CELL DISTRIBUTION WIDTH 15.7 % (11.6-17.2); WHITE BLOOD COUNT 19.9 TH/MM3 (4.0-11.0)
[2016-06-28 05:57] LABS: HEMO FLAGS AUTO DIFF
[2016-06-28 06:02] LABS: APTT (PATIENT) 30.1 SEC (24.3-30.1); INTERNATIONAL NORMALIZED RATIO 1.4 RATIO; PROTHROMBIN TIME - PATIENT 15.8 SEC (9.8-11.6)
[2016-06-28 06:27] LABS: BICARBONATE 30.1 MEQ/L (21.0-32.0); MAGNESIUM 2.1 MG/DL (1.5-2.5); POTASSIUM 4.1 MEQ/L (3.5-5.1)
[2016-06-28 06:30] LABS: INDIRECT BILIRUBIN 1.3 MG/DL (0.0-0.8); TOTAL BILIRUBIN ADULT 3.4 MG/DL (0.2-1.0)
[2016-06-28 07:55] LABS: PLATELET ESTIMATE SMEAR NORMAL (NORMAL); PLATELET MORPHOLOGY ENLARGED (NORMAL); SCAN/DIFF AUTO DIFF CONFIRMED
[2016-06-28] MEDS: RESP: BUDESONIDE 0.5 MG/2 ML NEB NEB SCH ×2 (08:00→20:17)
[2016-06-28] MEDS: THIAMINE HCL 100 MG TAB PO SCH (08:43)
[2016-06-28] MEDS: METOPROLOL TARTRATE 25 MG TAB PO SCH ×2 (08:43→21:15)
[2016-06-28] MEDS: FOLIC ACID 1 MG TAB PO SCH (08:43)
[2016-06-28] MEDS: guaiFENesin E.R. 600 MG TAB PO SCH ×2 (08:43→21:13)
[2016-06-28] MEDS: MULTIVITAMIN TAB PO SCH (08:43)
[2016-06-28] MEDS: CALCIUM CARBONATE 1.25 GM (CA 500 MG) TAB PO SCH ×2 (08:43→21:13)
[2016-06-28] MEDS: RIFAXIMIN 550 MG TAB PO SCH ×2 (08:43→21:13)
[2016-06-28] MEDS: SODIUM CHLORIDE 0.9% FLUSH 10 ML FLUSH IV FLUSH SCH ×2 (08:43→21:15)
[2016-06-28] MEDS: PANTOPRAZOLE SOD 40 MG DELAYED RELEASE TAB PO SCH (08:43)
[2016-06-28] MEDS: ONDANSETRON HCL 4 MG/2 ML VIAL IV PUSH PRN (08:44)
[2016-06-28] MEDS: HEPARIN SODIUM - SQ 10,000 UNITS/ML VIAL SQ SCH ×2 (08:44→21:14)
[2016-06-28] MEDS: VANCOMYCIN INJ 1,000 MG in SODIUM CHLOR 0.9% 250 ML INJ 250 ML IV SCH ×2 (08:48→21:14)
[2016-06-28] MEDS: SODIUM CHLORIDE 0.9% FLUSH 10 ML FLUSH IV FLUSH PRN (09:02)
--- NOTE | 2016-06-28 09:06 | HHI.CCPN ---
Subjective Remarks/Hospital Course This is a 31-year-old female without prior past medical history who initially presented to the hospital on 06/10 complaining of shortness of breath. At that time she was found to have end-stage liver disease which is being worked up. During his hospital admission she underwent drainage of pleural effusion for hypoxia. She presented in rapid response from the floor for worsening hypoxia. When I evaluated the patient on her arrival to the intensive care unit she was tach state on her cell phone and appeared in no apparent distress. However , she was significantly hypoxic with SPO2 of 85% on a nonrebreather. Despite the fact that she did not appear in distress, she did have trouble speaking in complete sentences, and was quite dyspneic on my evaluation. This limited the amount of history was able to obtain from her. She did state this was similar to her presenting shortness of breath almost a week ago. She denies any associated symptoms, and denies any changes today compared to prior days. Her chest x-ray does appear to have significant pulmonary edema with associated bilateral pleural effusions. Her BNP was elevated a few days ago and it is difficult to assess her volume status given that she has not had strict I's and O's. She does appear to be up 8 kg from admission weight. 06/22: Currently on high flow nasal cannula. Negative PFO on KARAN today. Appears comfortable. Bilateral infiltrates CT Chest Yesterday.. Still feels short of breath.. Received 120 mg IV Lasix last night 06/23: Currently on partial nonrebreather. Intermittent BiPAP overnight. States she is short of breath but appears comfortable. Not tachypneic or using accessory muscles. 06/24 Patient placed on BIPAP overnight 11/24 with 75% FIO2. Afebrile. 06/25: On BiPAP 1 hour last night. Satting 99% currently on partial nonrebreather. Appears comfortable not using accessory muscles. Tolerating diet. Subjective 06/26: Complaining of pleuritic chest pain/anxiety this a.m. appears quite anxious. Currently receiving Bumex per pulmonary recommendations. Chest pain is pleuritic likely associated with cough. 06/27 Patient states she is breathing better however CXR today showed worsening b/ l pulm infiltrates, afebrile. 06/28 No acute events overnight. On 5L oxygen. Afebrile. Objective Vital Signs Date Time Temp Pulse Resp B/P Pulse Ox O2 Delivery O2 Flow Rate FiO2 06/28/16 06:00 109 06/28/16 04:00 98.6 20 116/68 89 06/28/16 04:00 Nasal Cannula 5.00 06/27/16 12:00 50 Intake and Output 06/27/16 06/27/16 06/28/16 08:00 16:00 00:00 Intake Total 800 ml 1684 ml 981 ml Output Total 450 ml 400 ml 900 ml Balance 350 ml 1284 ml 81 ml Result Diagram: 06/28/16 0405 06/28/16 0405 Other Results Laboratory Tests Test 06/27/16 06/27/16 06/28/16 12:50 13:25 04:05 Phosphorus Level 2.6 MG/DL 2.3 MG/DL Urine Color RED Urine Turbidity HAZY Urine pH 6.0 Urine Specific [place] 1.049 Urine Protein 30 mg/dL Urine Glucose (UA) NEG mg/dL Urine Ketones TRACE mg/dL Urine Occult Blood LARGE Urine Nitrite NEG Urine Bilirubin NEG Urine Urobilinogen LESS THAN 2.0 MG/DL Urine Leukocyte Esterase MOD Urine RBC /hpf Urine WBC 11 /hpf Urine Squamous Epithelial 1 /hpf Cells Urine Bacteria RARE /hpf Microscopic Urinalysis Comment CULTURE INDICATED White Blood Count 19.9 TH/MM3 Red Blood Count 2.68 MIL/MM3 Hemoglobin 8.9 GM/DL Hematocrit 27.7 % Mean Corpuscular Volume 103.5 FL Mean Corpuscular Hemoglobin 33.3 PG Mean Corpuscular Hemoglobin 32.2 % Concent Red Cell Distribution Width 15.7 % Platelet Count 169 TH/MM3 Mean Platelet Volume 10.2 FL Neutrophils (%) (Auto) 92.3 % Lymphocytes (%) (Auto) 2.1 % Monocytes (%) (Auto) 5.3 % Eosinophils (%) (Auto) 0.0 % Basophils (%) (Auto) 0.3 % Neutrophils # (Auto) 18.3 TH/MM3 Lymphocytes # (Auto) 0.4 TH/MM3 Monocytes # (Auto) 1.0 TH/MM3 Eosinophils # (Auto) 0.0 TH/MM3 Basophils # (Auto) 0.1 TH/MM3 CBC Comment AUTO DIFF Differential Comment AUTO DIFF CONFIRMED Platelet Estimate NORMAL Platelet Morphology Comment ENLARGED Prothrombin Time 15.8 SEC Prothromb Time International 1.4 RATIO Ratio Activated Partial 30.1 SEC Thromboplast Time Sodium Level 137 MEQ/L Potassium Level 4.1 MEQ/L Chloride Level 100 MEQ/L Carbon Dioxide Level 30.1 MEQ/L Anion Gap 7 MEQ/L Blood Urea Nitrogen 9 MG/DL Creatinine 0.46 MG/DL Estimat Glomerular Filtration 156 ML/MIN Rate Random Glucose 121 MG/DL Calcium Level 8.5 MG/DL Magnesium Level 2.1 MG/DL Total Bilirubin 3.4 MG/DL Direct Bilirubin 2.1 MG/DL Indirect Bilirubin 1.3 MG/DL Aspartate Amino Transf 161 U/L (AST/SGOT) Alanine Aminotransferase 76 U/L (ALT/SGPT) Alkaline Phosphatase 167 U/L Total Protein 5.6 GM/DL Albumin 2.3 GM/DL Imaging Last Impressions Chest X-Ray 06/27/16 0000 Signed Impressions: Service Date/Time: Monday, June 27, 2016 04:15 - CONCLUSION: Worsening bilateral infiltrates. Small right effusion. Chapo Egan Jr., MD CT Angiography 06/26/16 0000 Signed Impressions: Service Date/Time: Sunday, June 26, 2016 15:16 - CONCLUSION: 1. Negative for pulmonary embolus. 2. Worsening bilateral dense air space consolidation in both lungs. 3. Relatively stable bilateral pleural effusions, right greater than left. 4. Diffuse liver disease with mild ascites and hepatic enlargement. Silvino Jordan MD Chest CT 06/21/16 0000 Signed Impressions: Service Date/Time: Tuesday, June 21, 2016 21:50 - CONCLUSION: Widespread areas of consolidation involving the lower lobes bilaterally and the upper lobes bilaterally. This is nonspecific. It could be infectious. There are moderate bilateral pleural effusions and mild ascites. Qasim Phillips MD Abdomen Ultrasound 06/17/16 0000 Signed Impressions: Service Date/Time: Friday, June 17, 2016 10:00 - CONCLUSION: There is not enough fluid for safe paracentesis.. Harish Chaudhary MD FACR Thoracentesis Ultrasound 06/16/16 0000 Signed Impressions: Service Date/Time: May 14:13 - CONCLUSION: Uncomplicated ultrasound guided thoracentesis. Qasim Osuna MD Abdomen/Pelvis CT 06/10/16 0651 Signed Impressions: Service Date/Time: Friday, June 10, 2016 07:22 - CONCLUSION: 1. Enlarged fatty liver. 2. Mild splenomegaly. 3. Small to moderate amount of ascites within the abdomen and pelvis. 4. Small right pleural effusion. 5. Small hiatal hernia. 6. Cholelithiasis. Juan Leblanc MD Hepatobiliary Scan Nuclear Medicine 06/10/16 0000 Signed Impressions: Service Date/Time: Friday, June 10, 2016 12:50 - CONCLUSION: 1. Scintigraphic findings suggesting hepatocellular dysfunction with sluggish washout and persistent background activity. 2. Due to limited excretion, it is difficult to identify the extrahepatic biliary tree. However, activity is seen in the small bowel by 10 minutes. 3. No scintigraphic findings of acute cholecystitis. Bob Lara MD Cholangiopancreatography MRI 06/10/16 0000 Signed Impressions: Service Date/Time: Friday, June 10, 2016 12:25 - CONCLUSION: 1. Hepatosplenomegaly with significantly and inhomogeneously fatty infiltrated liver. 2. Slight ascites and bilateral pleural effusions. 3. Cholelithiasis and pericholecystic fluid and cholecystitis is not excluded. Mert Laurent MD Objective Remarks GENERAL: 31-year-old female, critically ill currently resting in bed on partial nonrebreather SKIN: Warm and dry. No rash HEAD: Atraumatic. Normocephalic. EYES: Pupils equal and round about 2-3 mm bilaterally and reactive. No scleral icterus. No injection or drainage. ENT: No nasal bleeding or discharge. Mucous membranes pink and moist. NECK: Trachea midline. No JVD. CARDIOVASCULAR: Tachycardic, RR. S1, S2 without murmur, clicks, gallops or rubs RESPIRATORY: Coarse crackles appreciated throughout lung dean. Diminished at bases. No wheeze GASTROINTESTINAL: Abdomen soft, non-tender, somewhat protuberant. Hypoactive bowel sounds appreciated MUSCULOSKELETAL: Extremities with trace lower extremity edema. No obvious deformities. NEUROLOGICAL: Awake and alert. No obvious cranial nerve deficits. Motor grossly within normal limits. Five out of 5 muscle strength in the arms and legs. Normal speech. PSYCHIATRIC: Appropriate mood and affect; insight and judgment normal. Procedures 06/16- thoracentesis 500 cc out- transudate A/P Assessment and Plan Neuro/Psych: EtOH Continue thiamine folate and multivitamin daily for EtOH use Ativan 0.5 every 8 hours when necessary anxiety [place] for pain Morphine PRN for breakthrough pain. CV: Monitor HR and BP keep MAP>65mmHg. On Lopressor 12.5mg BID for rate control. Echo showed EF 50-55%, no regional wall motion abnormality Resp: Acute hypoxemic respiratory failure Continue with oxygen keep sat >92% Bronchodilators ( DuoNeb, Pulmicort) NIPPV for resp distress CXR 06/27 showed worsening b/l pulm infiltrates, recheck CXR in am 06/26 CTA chest : No PE, Worsening bilateral dense air space consolidation in both lungs. Diffuse liver disease with mild ascites and hepatic enlargement Status post thoracentesis 800 cc transudative right side 06/16 - Decrease Solumedrol 40 mg IV Q12 GI: Cholelithiasis Abdominal ascites Elevated transaminases Elevated bilirubin Elevated anti-1 antitrypsin 06/10 - MRCP - hepatosplenomegaly. - Ascites - cannot rule out cholecystitis 06/10 - HIDA scan - negative for cholecystitis Seen by gastroenterology. Negative hepatitis, AMA, ASMA, AMA and ceruloplasmin. Had signed off Currently on regular diet Hepatitis profile negative Continue pentoxifylline 400 mg by mouth 3 times a day : Monitor renal function, I/O's, electrolytes replacement per protocol. d/c IVF, d/c Cleaning Endo: Sliding scale insulin for glycemic control Heme: Leukocytosis Macrocytic anemia Monitor CBC ID: Continue with abx ( Zosyn, Vanco) ID is following BC from 06/26-NGTD, follow up on sputum and urine cxs. Monitor for signs of infections ( Fever, WBC) 06/24 sputum cx, strep pneumonia and Legionella urinary Ag all negative MSK: PT evaluate and treat Currently on Os-Zac twice a day Access - Utilize peripheral IV. Prophylaxis - GI - Protonix - DVT - SCD/ Level 3 Thad Mccall MD June 28, 2016 09:06
[2016-06-28] MEDS: LORazepam 0.5 MG TAB PO PRN ×2 (10:42→18:57)
--- NOTE | 2016-06-28 14:11 | HHI.IDPN ---
Subjective Subjective Remarks Notes reviewed Patient last seen 06/15 Evaluated initially for one (+) BC with Propionibacterium - felt to be a contaminant, and not treated, and patient taken off Abx Pulmonary has seen patient for pleural effusions - had tap, and fluid is a transudate On 06/21, developed hypoxemia, CTA with katie effusions and bilateral infiltrates Started on Abx and transferred to ICU NO PE on CT Also given steroids She has not been febrile Patient less SOB today On nasal O2 BC have been negative Repeat sputum pending Legionella and Pneumococcal Ag negative WBC has been elevated She is on Solumedrol, Zosyn and Vancomycin Echo with good LV function Antibiotics Zosyn Vancomycin Lines PIV Past Medical History ETOH abuse Arthroscopic surgery to knee Allergies: Coded Allergies: No Known Allergies (Unverified , 06/10/16) Objective . Vital Signs Date Time Temp Pulse Resp B/P Pulse Ox O2 Delivery O2 Flow Rate FiO2 06/28/16 06:00 109 06/28/16 04:00 98.6 112 20 116/68 89 06/28/16 04:00 90 Nasal Cannula 5.00 06/28/16 04:00 112 06/28/16 02:00 112 06/28/16 00:00 90 Nasal Cannula 5.00 06/28/16 00:00 115 06/28/16 00:00 98.6 115 22 111/66 06/27/16 22:00 115 06/27/16 21:15 22 06/27/16 20:00 98 Nasal Cannula 5.00 06/27/16 20:00 119 06/27/16 20:00 98.7 119 22 125/78 06/27/16 19:49 89 Nasal Cannula 4.00 06/27/16 18:00 118 06/27/16 16:00 97.9 113 21 112/71 91 06/27/16 16:00 113 06/27/16 16:00 91 Nasal Cannula 6.00 06/27/16 06/27/16 06/28/16 15:00 23:00 07:00 Intake Total 1684 ml 981 ml 576 ml Output Total 400 ml 900 ml 700 ml Balance 1284 ml 81 ml -124 ml Intake Oral 720 ml 300 ml 300 ml IV Total 964 ml 681 ml 276 ml Output Urine Total 400 ml 900 ml 700 ml # Bowel Movements 1 . Laboratory Tests Test 06/27/16 06/28/16 05:08 04:05 White Blood Count 19.5 TH/MM3 19.9 TH/MM3 Red Blood Count 2.75 MIL/MM3 2.68 MIL/MM3 Hemoglobin 9.0 GM/DL 8.9 GM/DL Hematocrit 28.7 % 27.7 % Mean Corpuscular Volume 104.5 FL 103.5 FL Mean Corpuscular Hemoglobin 32.8 PG 33.3 PG Mean Corpuscular Hemoglobin 31.4 % 32.2 % Concent Red Cell Distribution Width 15.3 % 15.7 % Platelet Count 171 TH/MM3 169 TH/MM3 Mean Platelet Volume 10.3 FL 10.2 FL Neutrophils (%) (Auto) 92.3 % Lymphocytes (%) (Auto) 2.1 % Monocytes (%) (Auto) 5.3 % Eosinophils (%) (Auto) 0.0 % Basophils (%) (Auto) 0.3 % Neutrophils # (Auto) 18.3 TH/MM3 Lymphocytes # (Auto) 0.4 TH/MM3 Monocytes # (Auto) 1.0 TH/MM3 Eosinophils # (Auto) 0.0 TH/MM3 Basophils # (Auto) 0.1 TH/MM3 CBC Comment AUTO DIFF Differential Comment AUTO DIFF CONFIRMED Platelet Estimate NORMAL Platelet Morphology Comment ENLARGED Laboratory Tests Test 06/27/16 06/27/16 06/28/16 05:08 12:50 04:05 Sodium Level 138 MEQ/L 137 MEQ/L Potassium Level 3.4 MEQ/L 4.1 MEQ/L Chloride Level 98 MEQ/L 100 MEQ/L Carbon Dioxide Level 31.7 MEQ/L 30.1 MEQ/L Anion Gap 8 MEQ/L 7 MEQ/L Blood Urea Nitrogen 10 MG/DL 9 MG/DL Creatinine 0.53 MG/DL 0.46 MG/DL Estimat Glomerular Filtration 133 ML/MIN 156 ML/MIN Rate Random Glucose 130 MG/DL 121 MG/DL Calcium Level 8.7 MG/DL 8.5 MG/DL Phosphorus Level 2.1 MG/DL 2.6 MG/DL 2.3 MG/DL Magnesium Level 2.1 MG/DL 2.1 MG/DL Total Bilirubin 3.6 MG/DL 3.4 MG/DL Direct Bilirubin 2.3 MG/DL 2.1 MG/DL Indirect Bilirubin 1.3 MG/DL 1.3 MG/DL Aspartate Amino Transf 193 U/L 161 U/L (AST/SGOT) Alanine Aminotransferase 66 U/L 76 U/L (ALT/SGPT) Alkaline Phosphatase 170 U/L 167 U/L Total Protein 5.9 GM/DL 5.6 GM/DL Albumin 2.5 GM/DL 2.3 GM/DL Lipase 188 U/L Microbiology Date/Time Procedure Status Source Growth 06/26/16 11:21 Aerobic Blood Culture - Preliminary Resulted Blood Peripheral NO GROWTH IN 2 DAYS 06/26/16 11:21 Anaerobic Blood Culture - Preliminary Resulted Blood Peripheral NO GROWTH IN 2 DAYS 06/26/16 11:22 Aerobic Blood Culture - Preliminary Resulted Blood Peripheral NO GROWTH IN 2 DAYS 06/26/16 11:22 Anaerobic Blood Culture - Preliminary Resulted Blood Peripheral NO GROWTH IN 2 DAYS 06/27/16 13:25 Urine Culture Received Urine Clean Catch Pending 06/28/16 02:15 Gram Stain - Final Resulted Sputum Expectorated Sputum 06/28/16 02:15 Sputum Culture Resulted Sputum Expectorated Sputum Pending Imaging Chest X-Ray 06/27/16 0000 Signed Impressions: Service Date/Time: Monday, June 27, 2016 04:15 - CONCLUSION: Worsening bilateral infiltrates. Small right effusion. Chapo Egan Jr., MD CT Angiography 06/26/16 0000 Signed Impressions: Service Date/Time: Sunday, June 26, 2016 15:16 - CONCLUSION: 1. Negative for pulmonary embolus. 2. Worsening bilateral dense air space consolidation in both lungs. 3. Relatively stable bilateral pleural effusions, right greater than left. 4. Diffuse liver disease with mild ascites and hepatic enlargement. Silvino Jordan MD Chest CT 06/21/16 0000 Signed Impressions: Service Date/Time: Tuesday, June 21, 2016 21:50 - CONCLUSION: Widespread areas of consolidation involving the lower lobes bilaterally and the upper lobes bilaterally. This is nonspecific. It could be infectious. There are moderate bilateral pleural effusions and mild ascites. Qasim Phillips MD Abdomen Ultrasound 06/17/16 0000 Signed Impressions: Service Date/Time: Friday, June 17, 2016 10:00 - CONCLUSION: There is not enough fluid for safe paracentesis.. Harish Chaudhary MD FACR Thoracentesis Ultrasound 06/16/16 0000 Signed Impressions: Service Date/Time: May 14:13 - CONCLUSION: Uncomplicated ultrasound guided thoracentesis. Qasim Osuna MD Abdomen/Pelvis CT 06/10/16 0651 Signed Impressions: Service Date/Time: Friday, June 10, 2016 07:22 - CONCLUSION: 1. Enlarged fatty liver. 2. Mild splenomegaly. 3. Small to moderate amount of ascites within the abdomen and pelvis. 4. Small right pleural effusion. 5. Small hiatal hernia. 6. Cholelithiasis. Juan Leblanc MD Hepatobiliary Scan Nuclear Medicine 06/10/16 0000 Signed Impressions: Service Date/Time: Friday, June 10, 2016 12:50 - CONCLUSION: 1. Scintigraphic findings suggesting hepatocellular dysfunction with sluggish washout and persistent background activity. 2. Due to limited excretion, it is difficult to identify the extrahepatic biliary tree. However, activity is seen in the small bowel by 10 minutes. 3. No scintigraphic findings of acute cholecystitis. Bob Lara MD Cholangiopancreatography MRI 06/10/16 0000 Signed Impressions: Service Date/Time: Friday, June 10, 2016 12:25 - CONCLUSION: 1. Hepatosplenomegaly with significantly and inhomogeneously fatty infiltrated liver. 2. Slight ascites and bilateral pleural effusions. 3. Cholelithiasis and pericholecystic fluid and cholecystitis is not excluded. Mert Laurent MD Chest X-Ray 06/15/16 1259 Signed Impressions: Service Date/Time: Wednesday, June 15, 2016 13:21 - CONCLUSION: Slight worsening of right pleural effusion and right lung base consolidation, otherwise no change in left pleural effusion and probable mild case of pulmonary edema Mert Laurent MD Abdomen Ultrasound 06/14/16 0000 Signed Impressions: Service Date/Time: Tuesday, June 14, 2016 09:13 - CONCLUSION: 1. Small volume ascites Jamaal Eastman MD Hepatobiliary Scan Nuclear Medicine 06/10/16 0000 Signed Impressions: Service Date/Time: Friday, June 10, 2016 12:50 - CONCLUSION: 1. Scintigraphic findings suggesting hepatocellular dysfunction with sluggish washout and persistent background activity. 2. Due to limited excretion, it is difficult to identify the extrahepatic biliary tree. However, activity is seen in the small bowel by 10 minutes. 3. No scintigraphic findings of acute cholecystitis. Bob Lara MD Cholangiopancreatography MRI 06/10/16 0000 Signed Impressions: Service Date/Time: Friday, June 10, 2016 12:25 - CONCLUSION: 1. Hepatosplenomegaly with significantly and inhomogeneously fatty infiltrated liver. 2. Slight ascites and bilateral pleural effusions. 3. Cholelithiasis and pericholecystic fluid and cholecystitis is not excluded. Mert Laurent MD Physical Exam GENERAL: Awake and alert, comfortable at rest, on nasal [id number]. SKIN: cool and dry, jaundiced, has spider angiomata in her upper chest and UE. HEENT: Normocephalic, atraumatic. [place] conjunctivae. LEA. EOM full and intact. Has scleral icterus. No injection or drainage. Moist oral mucosa. No exudate. NECK: Trachea midline. No JVD or lymphadenopathy. Supple, nontender, no meningeal signs. CARDIOVASCULAR: . Regular rate and rhythm without murmurs, gallops, or rubs. RESPIRATORY: Bilateral rales, decreased at the bases. NO wheezing. Equal BS katie. GASTROINTESTINAL: Abdomen mildly distended, globular, has an enlarged liver, not tender on palpation. Bowel sounds present and normoactive. No guarding. No rebound. MUSCULOSKELETAL: Extremities without clubbing, cyanosis, or edema. No joint tenderness, effusion, or edema noted. No calf tenderness. NEUROLOGICAL: Awake and alert. Cranial nerves II through XII intact. Five out of 5 muscle strength in all muscle groups. Normal speech. PSYCH: Calm and cooperative LINE: PIV with no evidence of infection Assessment & Plan Remarks IMPRESSION Persistent leukocytosis, etiology, likely reactive - due to pulmonary process and steroids adding to it Bilateral pulmonary infiltrates, due to HCAP Respiratory failure due to katie infiltrates One (+) BC with propionibacterium C/W contamination - skin arianna - can be pathogenic but usually in setting where hardware present ETOH hepatitis Diarrhea, C diff negative RECOMMENDATION Follow C/S Continue Zosyn and Vancomycin - adjust Abx once C/S finalized Follow CBC Taper steroids when ok with pulmonary Follow clinically Will determine course of Abx depending on her progress Whit Rock MD June 28, 2016 14:11
[2016-06-28] MEDS: ACETAMINOPHEN/HYDROcodone 325 MG/5 MG TAB PO PRN ×2 (16:32→22:15)
[2016-06-28] MEDS: RESP: ALBUTEROL 2.5 MG/IPRATROPIUM 0.5 MG NEB (PRN) NEB ×2 (17:24→23:49)
--- NOTE | 2016-06-28 19:22 | HHI.PR ---
Subjective Remarks 06/26 Patient is off BIPAP. Weaned to 5LNC . Afebrile. Feels abd getting bigger Breathing better Objective Vital Signs Vital Signs Date Time Temp Pulse Resp B/P Pulse Ox O2 Delivery O2 Flow Rate FiO2 06/28/16 17:00 101 36 125/81 88 06/28/16 16:34 103 43 123/57 86 06/28/16 16:00 98.0 102 39 92 06/28/16 16:00 Nasal Cannula 6.00 06/28/16 15:00 110 46 113/70 88 06/28/16 14:00 104 23 106/63 91 06/28/16 13:00 105 28 108/60 88 06/28/16 12:00 Nasal Cannula 6.00 06/28/16 12:00 98.8 101 36 117/71 89 06/28/16 11:02 104 29 123/91 87 06/28/16 10:00 100 24 114/70 92 06/28/16 09:00 105 20 111/68 89 06/28/16 08:00 98.1 105 25 116/80 90 06/28/16 08:00 Nasal Cannula 6.00 06/28/16 06:00 109 06/28/16 04:00 98.6 112 20 116/68 89 06/28/16 04:00 90 Nasal Cannula 5.00 06/28/16 04:00 112 06/28/16 02:00 112 06/28/16 00:00 90 Nasal Cannula 5.00 06/28/16 00:00 115 06/28/16 00:00 98.6 115 22 111/66 06/27/16 22:00 115 06/27/16 21:15 22 06/27/16 20:00 98 Nasal Cannula 5.00 06/27/16 20:00 119 06/27/16 20:00 98.7 119 22 125/78 06/27/16 19:49 89 Nasal Cannula 4.00 I/O 06/27/16 06/27/16 06/27/16 06/28/16 06/28/16 06/28/16 07:00 15:00 23:00 07:00 15:00 23:00 Intake Total 800 ml 1684 ml 981 ml 576 ml 1180 ml Output Total 450 ml 400 ml 900 ml 700 ml 400 ml 200 ml Balance 350 ml 1284 ml 81 ml -124 ml 780 ml -200 ml Intake Oral 600 ml 720 ml 300 ml 300 ml 600 ml IV Total 200 ml 964 ml 681 ml 276 ml 580 ml Output Urine Total 450 ml 400 ml 900 ml 700 ml 400 ml 200 ml # Bowel Movements 1 1 1 1 Result Diagram: 06/28/1640406/28/16404 Objective Remarks GENERAL: Patient is 31 yo on partial rebreather SKIN: Warm and dry. HEAD: Normocephalic. EYES: No scleral icterus. No injection or drainage. NECK: Supple, trachea midline. No JVD or lymphadenopathy. CARDIOVASCULAR: Tachycardic without murmurs, gallops, or rubs. RESPIRATORY: Breath sounds equal bilaterally. Few coarse BS GASTROINTESTINAL: Abdomen soft, non-tender, nondistended. MUSCULOSKELETAL: No cyanosis, or edema. Neuro: Awake and alert A/P Assessment and Plan Resp Insuff Pneumonia Pleural effusion, s/p Thoracentesis Leukocytosis Anemia Alcohlic hepatitis ETOH use Nicotine use PLAN: Supplement 02 with NC 5Lit Continue with oxygen keep sat >92% Bronchodilators, IS CXR from 06/25: Mild increased opacity in left perihilar region with improved opacity in the right upper lobe. Small right effusion. Currently on Pulmicort twice a day/DuoNeb Status post thoracentesis 800 cc transudative right side 06/16 - On Solumederol 40 IV every 8, diurese with Bumex 1mg x1 Continue with abx (Zosyn), Monitor for signs of infections strep pneumonia and legionella urinary ag negative. Sputum cx 06/24: normal resp arianna. GI/DVT prophylaxis Continue treatment plan. Tomi Mckeon MD June 28, 2016 19:22
[2016-06-29] VITALS (24 sets, daily range): BP systolic 101–136; BP diastolic 57–83; PULSE 96–113; RESP 17–44; TEMP 97.4–98.9; O2SAT 84–96
[2016-06-29] MEDS: PIPERACIL-TAZO 4.5 GM PREMIX 100 ML IV SCH ×5 (00:03→23:41)
[2016-06-29] MEDS: RESP: ALBUTEROL 2.5 MG/IPRATROPIUM 0.5 MG NEB (PRN) NEB ×2 (03:59→11:21)
[2016-06-29] MEDS: MORPHINE SULFATE 4 MG/ML INJ IV PUSH PRN ×3 (04:03→21:35)
[2016-06-29 05:55] LABS: AUTOMATED NEUTROPHIL # 18.5 TH/MM3 (1.8-7.7); HEMATOCRIT 27.6 % (35.0-46.0); LYMPH % 1.8 % (9.0-44.0); LYMPHOCYTE # 0.3 TH/MM3 (1.0-4.8); MEAN CELL VOLUME 102.9 FL (80.0-100.0); MEAN CORPUSCULAR HEMOGLOBIN 33.1 PG (27.0-34.0); MEAN CORPUSCULAR HGB CONC 32.2 % (32.0-36.0); MONO % 4.2 % (0.0-8.0); PLATELET COUNT 166 TH/MM3 (150-450); RED BLOOD COUNT 2.68 MIL/MM3 (4.00-5.30); RED CELL DISTRIBUTION WIDTH 15.2 % (11.6-17.2); WHITE BLOOD COUNT 19.7 TH/MM3 (4.0-11.0)
[2016-06-29 06:03] LABS: HEMO FLAGS AUTO DIFF
[2016-06-29] MEDS: INSULIN NovoLIN REGULAR SUPPLEMENTAL SCALE SQ SCH ×5 (06:16→20:24)
[2016-06-29] MEDS: ACETAMINOPHEN/HYDROcodone 325 MG/5 MG TAB PO PRN ×4 (06:17→20:26)
[2016-06-29] MEDS: PENTOXIFYLLINE 400 MG CONTROLLED RELEASE TAB PO SCH ×3 (06:17→20:22)
--- NOTE | 2016-06-29 06:35 | RADRPT ---
EXAM DATE/TIME: 06/29/2016 04:38 [facility] COMPARISON: CHEST SINGLE AP, June 27, 2016, 4:15. INDICATIONS : Short of breath. MEDICAL HISTORY : None. SURGICAL HISTORY : None. ENCOUNTER: Initial ACUITY: 1 day PAIN SCORE: 0/10 LOCATION: Bilateral chest FINDINGS: A single portable frontal view the chest shows worsening consolidation within the left upper lobe com ponent of the bilateral pulmonary infiltrates. The remaining infiltrates are unchanged. Small effusio ns. Heart is normal in size. CONCLUSION: Some worsening of the left upper lobe infiltrate with the remaining diffuse bilateral pulmonary infil trates unchanged. Chapo Egan Jr., MD on June 29, 2016 at 6:33 Board Certified Radiologist. This report was verified electronically.
[2016-06-29 06:53] LABS: ALKALINE PHOSPHATASE 153 U/L (45-117); ALT (GPT) 89 U/L (10-53); ANION GAP 9 MEQ/L (5-15); AST (GOT) 179 U/L (15-37); BICARBONATE 29.5 MEQ/L (21.0-32.0); BLOOD UREA NITROGEN 10 MG/DL (7-18); CHLORIDE 99 MEQ/L (98-107); GLOMERULAR FILTRATION RATE 145 ML/MIN (>89); POTASSIUM 3.9 MEQ/L (3.5-5.1); SODIUM (NA) 137 MEQ/L (136-145); TOTAL BILIRUBIN ADULT 3.6 MG/DL (0.2-1.0)
[2016-06-29] MEDS: RESP: BUDESONIDE 0.5 MG/2 ML NEB NEB SCH ×2 (08:28→21:19)
[2016-06-29] MEDS: VANCOMYCIN INJ 1,000 MG in SODIUM CHLOR 0.9% 250 ML INJ 250 ML IV SCH ×2 (09:29→21:03)
[2016-06-29] MEDS: MULTIVITAMIN TAB PO SCH (09:30)
[2016-06-29] MEDS: CALCIUM CARBONATE 1.25 GM (CA 500 MG) TAB PO SCH ×2 (09:30→20:22)
[2016-06-29] MEDS: HEPARIN SODIUM - SQ 10,000 UNITS/ML VIAL SQ SCH ×2 (09:30→20:25)
[2016-06-29] MEDS: guaiFENesin E.R. 600 MG TAB PO SCH (09:30)
[2016-06-29] MEDS: RIFAXIMIN 550 MG TAB PO SCH ×2 (09:30→21:01)
[2016-06-29] MEDS: METOPROLOL TARTRATE 25 MG TAB PO SCH ×2 (09:30→20:21)
[2016-06-29] MEDS: THIAMINE HCL 100 MG TAB PO SCH (09:30)
[2016-06-29] MEDS: PANTOPRAZOLE SOD 40 MG DELAYED RELEASE TAB PO SCH (09:30)
[2016-06-29] MEDS: FOLIC ACID 1 MG TAB PO SCH (09:30)
[2016-06-29] MEDS: methylPREDNISolone SOD SUCC 40 MG/1 ML VIAL IV PUSH SCH ×2 (09:30→20:21)
[2016-06-29] MEDS: LORazepam 0.5 MG TAB PO PRN ×2 (09:36→21:34)
[2016-06-29 09:41] LABS: BANDS 6 % (0-6); MYELOCYTES 1 % (0-0); NEUTROPHIL # MANUAL DIFF 16.7 TH/MM3 (1.8-7.7); POLYS (SEG NEUTROPHILS) 78 % (16-70); WBC DIFF SAMPLE 100
[2016-06-29 09:42] LABS: PLATELET ESTIMATE SMEAR NORMAL (NORMAL); PLATELET MORPHOLOGY NORMAL (NORMAL); SCAN/DIFF FINAL DIFF MANUAL
--- NOTE | 2016-06-29 12:09 | HHI.CCPN ---
Subjective Remarks/Hospital Course This is a 31-year-old female without prior past medical history who initially presented to the hospital on 06/10 complaining of shortness of breath. At that time she was found to have end-stage liver disease which is being worked up. During his hospital admission she underwent drainage of pleural effusion for hypoxia. She presented in rapid response from the floor for worsening hypoxia. When I evaluated the patient on her arrival to the intensive care unit she was tach state on her cell phone and appeared in no apparent distress. However , she was significantly hypoxic with SPO2 of 85% on a nonrebreather. Despite the fact that she did not appear in distress, she did have trouble speaking in complete sentences, and was quite dyspneic on my evaluation. This limited the amount of history was able to obtain from her. She did state this was similar to her presenting shortness of breath almost a week ago. She denies any associated symptoms, and denies any changes today compared to prior days. Her chest x-ray does appear to have significant pulmonary edema with associated bilateral pleural effusions. Her BNP was elevated a few days ago and it is difficult to assess her volume status given that she has not had strict I's and O's. She does appear to be up 8 kg from admission weight. 06/22: Currently on high flow nasal cannula. Negative PFO on KARAN today. Appears comfortable. Bilateral infiltrates CT Chest Yesterday.. Still feels short of breath.. Received 120 mg IV Lasix last night 06/23: Currently on partial nonrebreather. Intermittent BiPAP overnight. States she is short of breath but appears comfortable. Not tachypneic or using accessory muscles. 06/24 Patient placed on BIPAP overnight 11/24 with 75% FIO2. Afebrile. 06/25: On BiPAP 1 hour last night. Satting 99% currently on partial nonrebreather. Appears comfortable not using accessory muscles. Tolerating diet. 06/26: Complaining of pleuritic chest pain/anxiety this a.m. appears quite anxious. Currently receiving Bumex per pulmonary recommendations. Chest pain is pleuritic likely associated with cough. 06/27 Patient states she is breathing better however CXR today showed worsening b/ l pulm infiltrates, afebrile. 06/28 No acute events overnight. On 5L oxygen. Afebrile. Subjective 06/29: Down to 4 L nasal cannula. Wants to go home. Cough is improved. Pleuritic chest pain is improved. Objective Vital Signs Date Time Temp Pulse Resp B/P Pulse Ox O2 Delivery O2 Flow Rate FiO2 06/29/16 08:28 95 Nasal Cannula 4.00 06/29/16 06:00 99 19 114/73 06/29/16 04:00 98.3 06/27/16 12:00 50 Intake and Output 06/28/16 06/28/16 06/28/16 07:59 15:59 23:59 Intake Total 576 ml 1180 ml 1505 ml Output Total 700 ml 400 ml 200 ml Balance -124 ml 780 ml 1305 ml Result Diagram: 06/29/16 0516 06/29/16 0516 Other Results Microbiology Date/Time Procedure Status Source Growth 06/28/16 02:15 Gram Stain - Final Resulted Sputum Expectorated Sputum 06/28/16 02:15 Sputum Culture Resulted Sputum Expectorated Sputum Pending 06/27/16 13:25 Urine Culture - Final Complete Urine Clean Catch Ольга Albicans 06/26/16 11:22 Aerobic Blood Culture - Preliminary Resulted Blood Peripheral NO GROWTH IN 3 DAYS 06/26/16 11:22 Anaerobic Blood Culture - Preliminary Resulted Blood Peripheral NO GROWTH IN 3 DAYS Imaging Last Impressions Chest X-Ray 06/29/16 0000 Signed Impressions: Service Date/Time: Wednesday, June 29, 2016 04:38 - CONCLUSION: Some worsening of the left upper lobe infiltrate with the remaining diffuse bilateral pulmonary infiltrates unchanged. Chapo Egan Jr., MD CT Angiography 06/26/16 0000 Signed Impressions: Service Date/Time: Sunday, June 26, 2016 15:16 - CONCLUSION: 1. Negative for pulmonary embolus. 2. Worsening bilateral dense air space consolidation in both lungs. 3. Relatively stable bilateral pleural effusions, right greater than left. 4. Diffuse liver disease with mild ascites and hepatic enlargement. Silvino Jordan MD Chest CT 06/21/16 0000 Signed Impressions: Service Date/Time: Tuesday, June 21, 2016 21:50 - CONCLUSION: Widespread areas of consolidation involving the lower lobes bilaterally and the upper lobes bilaterally. This is nonspecific. It could be infectious. There are moderate bilateral pleural effusions and mild ascites. Qasim Phillips MD Abdomen Ultrasound 06/17/16 0000 Signed Impressions: Service Date/Time: Friday, June 17, 2016 10:00 - CONCLUSION: There is not enough fluid for safe paracentesis.. Harish Chaudhary MD FACR Thoracentesis Ultrasound 06/16/16 0000 Signed Impressions: Service Date/Time: May 14:13 - CONCLUSION: Uncomplicated ultrasound guided thoracentesis. Qasim Osuna MD Abdomen/Pelvis CT 06/10/16 0651 Signed Impressions: Service Date/Time: Friday, June 10, 2016 07:22 - CONCLUSION: 1. Enlarged fatty liver. 2. Mild splenomegaly. 3. Small to moderate amount of ascites within the abdomen and pelvis. 4. Small right pleural effusion. 5. Small hiatal hernia. 6. Cholelithiasis. Juan Leblanc MD Hepatobiliary Scan Nuclear Medicine 06/10/16 0000 Signed Impressions: Service Date/Time: Friday, June 10, 2016 12:50 - CONCLUSION: 1. Scintigraphic findings suggesting hepatocellular dysfunction with sluggish washout and persistent background activity. 2. Due to limited excretion, it is difficult to identify the extrahepatic biliary tree. However, activity is seen in the small bowel by 10 minutes. 3. No scintigraphic findings of acute cholecystitis. Bob Lara MD Cholangiopancreatography MRI 06/10/16 0000 Signed Impressions: Service Date/Time: Friday, June 10, 2016 12:25 - CONCLUSION: 1. Hepatosplenomegaly with significantly and inhomogeneously fatty infiltrated liver. 2. Slight ascites and bilateral pleural effusions. 3. Cholelithiasis and pericholecystic fluid and cholecystitis is not excluded. Mert Laurent MD Objective Remarks GENERAL: 31-year-old female, critically ill currently resting in bed on [place] SKIN: Warm and dry. No rash HEAD: Atraumatic. Normocephalic. EYES: Pupils equal and round about 2-3 mm bilaterally and reactive. No scleral icterus. No injection or drainage. ENT: No nasal bleeding or discharge. Mucous membranes pink and moist. NECK: Trachea midline. No JVD. CARDIOVASCULAR: RRR. S1, S2 no S4. Currently without murmur, clicks, gallops or rubs RESPIRATORY: Coarse crackles appreciated throughout lung dean. Diminished at bases. No wheeze GASTROINTESTINAL: Abdomen soft, non-tender, somewhat protuberant. Hypoactive bowel sounds appreciated MUSCULOSKELETAL: Extremities with trace lower extremity edema. No obvious deformities. NEUROLOGICAL: Awake and alert. No obvious cranial nerve deficits. Motor grossly within normal limits. Five out of 5 muscle strength in the arms and legs. Normal speech. PSYCHIATRIC: Appropriate mood and affect; insight and judgment normal. Procedures 06/16- thoracentesis 500 cc out- transudate A/P Assessment and Plan Neuro/Psych: EtOH Continue thiamine folate and multivitamin daily for EtOH use Ativan 0.5 every 8 hours when necessary anxiety Landing for pain Morphine PRN for breakthrough pain. CV: Monitor HR and BP keep MAP>65mmHg. On Lopressor 12.5mg BID for rate control. Echo showed EF 50-55%, no regional wall motion abnormality Resp: Acute hypoxemic respiratory failure Continue with oxygen keep sat >92% Bronchodilators ( DuoNeb every 6 hours, Pulmicort twice a day) NIPPV for resp distress CXR 06/29 showed worsening b/l pulm infiltrates, especially left upper lobe 06/26 CTA chest : No PE, Worsening bilateral dense air space consolidation in both lungs. Diffuse liver disease with mild ascites and hepatic enlargement Status post thoracentesis 800 cc transudative right side 06/16 - Decrease Solumedrol 40 mg IV Q12 GI: Cholelithiasis Abdominal ascites Elevated transaminases Elevated bilirubin Elevated anti-1 antitrypsin 06/10 - MRCP - hepatosplenomegaly. - Ascites - cannot rule out cholecystitis 06/10 - HIDA scan - negative for cholecystitis Seen by gastroenterology. Negative hepatitis, AMA, ASMA, AMA and ceruloplasmin. Had signed off Currently on regular diet Hepatitis profile negative Continue pentoxifylline 400 mg by mouth 3 times a day /FEN: Monitor renal function, I/O's, electrolytes replacement per protocol. Endo: Sliding scale insulin for glycemic control Heme: Leukocytosis Macrocytic anemia Monitor CBC ID: Continue with abx ( Zosyn, Vanco) ID is following BC from 06/26-NGTD, follow up on sputum and urine cxs. Monitor for signs of infections ( Fever, WBC) 06/24 sputum cx, strep pneumonia and Legionella urinary Ag all negative MSK: PT evaluate and treat Currently on Os-Zac twice a day Access - Utilize peripheral IV. Prophylaxis - GI - Protonix - DVT - SCD/ Level 2 Biga,Wang M. MD June 29, 2016 12:09
[2016-06-29] MEDS: SODIUM CHLORIDE 0.9% FLUSH 10 ML FLUSH IV FLUSH SCH ×2 (12:25→20:20)
--- NOTE | 2016-06-29 18:55 | HHI.PR ---
Subjective Remarks 06/26 Patient is off BIPAP. Weaned to4 LNC . Afebrile. Feels abd getting bigger Breathing better Objective Vital Signs Vital Signs Date Time Temp Pulse Resp B/P Pulse Ox O2 Delivery O2 Flow Rate FiO2 06/29/16 18:01 105 44 125/63 06/29/16 18:00 104 31 06/29/16 17:00 97 27 117/76 95 06/29/16 16:00 98.9 100 25 121/75 91 06/29/16 15:00 97 20 115/74 90 06/29/16 14:00 97 21 106/67 95 06/29/16 13:01 98 37 113/57 91 06/29/16 13:00 99 40 90 06/29/16 12:00 97.4 98 26 113/75 91 06/29/16 12:00 Nasal Cannula 6.00 06/29/16 11:00 96 21 109/65 91 06/29/16 10:00 103 19 107/57 93 06/29/16 09:00 101 29 124/77 91 06/29/16 08:28 95 Nasal Cannula 4.00 06/29/16 08:00 98.0 96 19 101/57 94 06/29/16 08:00 Nasal Cannula 6.00 06/29/16 06:00 99 19 114/73 90 06/29/16 05:03 18 06/29/16 05:00 101 17 106/71 94 06/29/16 04:08 20 06/29/16 04:00 104 41 116/75 84 06/29/16 04:00 93 Nasal Cannula 6.00 06/29/16 04:00 98.3 104 20 116/75 93 06/29/16 04:00 104 06/29/16 03:00 97 24 116/68 91 06/29/16 02:00 106 44 115/83 86 06/29/16 02:00 106 06/29/16 01:00 99 18 110/68 93 06/29/16 00:00 97.8 96 20 114/70 96 06/29/16 00:00 96 Nasal Cannula 6.00 06/29/16 00:00 96 41 114/70 93 06/29/16 00:00 96 06/28/16 23:15 22 06/28/16 23:00 97 29 109/68 93 06/28/16 22:00 109 28 127/75 96 06/28/16 22:00 109 06/28/16 21:00 114 31 113/69 90 06/28/16 20:17 95 Nasal Cannula 4.00 06/28/16 20:00 98.6 119 24 142/88 97 06/28/16 20:00 119 06/28/16 20:00 119 29 142/88 06/28/16 20:00 97 Nasal Cannula 4.00 06/28/16 20:00 97 Nasal Cannula 6.00 I/O 06/28/16 06/28/16 06/28/16 06/29/16 06/29/16 06/29/16 07:00 15:00 23:00 07:00 15:00 23:00 Intake Total 576 ml 1180 ml 1505 ml 491 ml Output Total 700 ml 400 ml 200 ml 1695 ml Balance -124 ml 780 ml 1305 ml -1204 ml Intake Oral 300 ml 600 ml 900 ml 240 ml IV Total 276 ml 580 ml 605 ml 251 ml Output Urine Total 700 ml 400 ml 200 ml 1695 ml Stool Total 0 ml # Voids 1 # Bowel Movements 1 2 Result Diagram: 06/29/1651506/29/1616 Objective Remarks GENERAL: Patient is 31 yo on partial rebreather SKIN: Warm and dry. HEAD: Normocephalic. EYES: No scleral icterus. No injection or drainage. NECK: Supple, trachea midline. No JVD or lymphadenopathy. CARDIOVASCULAR: Tachycardic without murmurs, gallops, or rubs. RESPIRATORY: Breath sounds equal bilaterally. Few coarse BS GASTROINTESTINAL: Abdomen soft, non-tender, nondistended. MUSCULOSKELETAL: No cyanosis, or edema. Neuro: Awake and alert A/P Assessment and Plan Resp Insuff Pneumonia Pleural effusion, s/p Thoracentesis Leukocytosis Anemia Alcohlic hepatitis ETOH use Nicotine use PLAN: Supplement 02 with NC 5Lit Continue with oxygen keep sat >92% Bronchodilators, IS CXR from 06/25: Mild increased opacity in left perihilar region with improved opacity in the right upper lobe. Small right effusion. Currently on Pulmicort twice a day/DuoNeb Status post thoracentesis 800 cc transudative right side 06/16 - Continue with abx (Zosyn), Monitor for signs of infections strep pneumonia and legionella urinary ag negative. Sputum cx 5/5: normal resp arianna. GI/DVT prophylaxis Continue treatment plan. Stable from pulm standpoint to tr to floor Tomi Mckeon MD June 29, 2016 18:55
[2016-06-29] MEDS: RESP: ALBUTEROL 2.5 MG/IPRATROPIUM 0.5 MG NEB (SCH) NEB (21:19)
[2016-06-30] VITALS (16 sets, daily range): BP systolic 110–127; BP diastolic 62–82; PULSE 94–122; RESP 16–40; TEMP 97.8–98.7; O2SAT 88–98
[2016-06-30] MEDS: MORPHINE SULFATE 4 MG/ML INJ IV PUSH PRN ×6 (01:38→23:04)
[2016-06-30] MEDS: ACETAMINOPHEN/HYDROcodone 325 MG/5 MG TAB PO PRN ×3 (03:33→15:21)
[2016-06-30] MEDS: RESP: ALBUTEROL 2.5 MG/IPRATROPIUM 0.5 MG NEB (SCH) NEB ×4 (05:00→22:00)
[2016-06-30] MEDS: PENTOXIFYLLINE 400 MG CONTROLLED RELEASE TAB PO SCH ×3 (06:24→21:35)
[2016-06-30] MEDS: INSULIN NovoLIN REGULAR SUPPLEMENTAL SCALE SQ SCH ×4 (06:25→20:15)
[2016-06-30] MEDS: PIPERACIL-TAZO 4.5 GM PREMIX 100 ML IV SCH ×2 (06:25→11:17)
[2016-06-30] MEDS: SODIUM CHLORIDE 0.9% FLUSH 10 ML FLUSH IV FLUSH PRN (06:32)
[2016-06-30] MEDS: PANTOPRAZOLE SOD 40 MG DELAYED RELEASE TAB PO SCH (08:39)
[2016-06-30] MEDS: RIFAXIMIN 550 MG TAB PO SCH ×2 (08:39→20:17)
[2016-06-30] MEDS: THIAMINE HCL 100 MG TAB PO SCH (08:39)
[2016-06-30] MEDS: METOPROLOL TARTRATE 25 MG TAB PO SCH ×2 (08:39→20:17)
[2016-06-30] MEDS: FOLIC ACID 1 MG TAB PO SCH (08:39)
[2016-06-30] MEDS: CALCIUM CARBONATE 1.25 GM (CA 500 MG) TAB PO SCH ×2 (08:39→20:21)
[2016-06-30] MEDS: methylPREDNISolone SOD SUCC 40 MG/1 ML VIAL IV PUSH SCH ×2 (08:39→20:18)
[2016-06-30] MEDS: MULTIVITAMIN TAB PO SCH (08:39)
[2016-06-30] MEDS: SODIUM CHLORIDE 0.9% FLUSH 10 ML FLUSH IV FLUSH SCH ×2 (08:40→20:19)
[2016-06-30] MEDS: HEPARIN SODIUM - SQ 10,000 UNITS/ML VIAL SQ SCH ×2 (08:40→20:16)
[2016-06-30] MEDS: VANCOMYCIN INJ 1,000 MG in SODIUM CHLOR 0.9% 250 ML INJ 250 ML IV SCH (08:40)
[2016-06-30] MEDS: RESP: BUDESONIDE 0.5 MG/2 ML NEB NEB SCH ×2 (09:07→22:00)
[2016-06-30] MEDS: HYDROCORTISONE 1% CREAM 30 GM TOPICAL SCH (11:00)
--- NOTE | 2016-06-30 13:16 | HHI.IDPN ---
Subjective Subjective Remarks Notes reviewed On nasal O2 Cough better Last CXR 06/29 worse in upper lobe Sputum normal arianna Legionella and Pneumococcal Ag negative WBC same She is on Solumedrol, Zosyn and Vancomycin Echo with good LV function Antibiotics Zosyn Vancomycin Lines PIV Past Medical History ETOH abuse Arthroscopic surgery to knee Allergies: Coded Allergies: No Known Allergies (Unverified , 06/10/16) Objective . Vital Signs Date Time Temp Pulse Resp B/P Pulse Ox O2 Delivery O2 Flow Rate FiO2 06/30/16 12:34 20 06/30/16 11:17 18 06/30/16 10:00 108 06/30/16 09:58 18 06/30/16 09:08 98 Nasal Cannula 5.00 06/30/16 08:00 95 Nasal Cannula 7.00 06/30/16 08:00 94 06/30/16 08:00 98.6 94 16 110/65 94 06/30/16 06:00 95 06/30/16 04:00 97 06/30/16 04:00 92 Nasal Cannula 7.00 06/30/16 04:00 98.7 96 20 115/71 93 06/30/16 02:00 98 06/30/16 00:00 104 06/30/16 00:00 98.6 104 40 111/69 89 06/30/16 00:00 89 Nasal Cannula 7.00 06/29/16 22:00 109 06/29/16 21:19 94 Nasal Cannula 6.00 06/29/16 20:00 87 Nasal Cannula 7.00 06/29/16 20:00 98.6 113 21 136/74 87 06/29/16 20:00 113 06/29/16 18:01 105 44 125/63 06/29/16 18:00 104 31 06/29/16 17:00 97 27 117/76 95 06/29/16 16:00 98.9 100 25 121/75 91 06/29/16 16:00 Nasal Cannula 6.00 06/29/16 15:00 97 20 115/74 90 06/29/16 14:00 97 21 106/67 95 06/29/16 06/29/16 06/30/16 14:59 22:59 06:59 Intake Total 1100 ml 1008 ml 529 ml Output Total 400 ml 400 ml 200 ml Balance 700 ml 608 ml 329 ml Intake Oral 600 ml 720 ml 240 ml IV Total 500 ml 288 ml 289 ml Output Urine Total 400 ml 400 ml 200 ml # Bowel Movements 2 1 0 . Laboratory Tests Test 06/29/16 05:16 White Blood Count 19.7 TH/MM3 Red Blood Count 2.68 MIL/MM3 Hemoglobin 8.9 GM/DL Hematocrit 27.6 % Mean Corpuscular Volume 102.9 FL Mean Corpuscular Hemoglobin 33.1 PG Mean Corpuscular Hemoglobin 32.2 % Concent Red Cell Distribution Width 15.2 % Platelet Count 166 TH/MM3 Mean Platelet Volume 10.6 FL Neutrophils (%) (Auto) 94.0 % Lymphocytes (%) (Auto) 1.8 % Monocytes (%) (Auto) 4.2 % Eosinophils (%) (Auto) 0.0 % Basophils (%) (Auto) 0.0 % Neutrophils # (Auto) 18.5 TH/MM3 Lymphocytes # (Auto) 0.3 TH/MM3 Monocytes # (Auto) 0.8 TH/MM3 Eosinophils # (Auto) 0.0 TH/MM3 Basophils # (Auto) 0.0 TH/MM3 CBC Comment AUTO DIFF Differential Total Cells 100 Counted Neutrophils % (Manual) 78 % Band Neutrophils % 6 % Lymphocytes % 9 % Monocytes % 6 % Neutrophils # (Manual) 16.7 TH/MM3 Myelocytes 1 % Differential Comment FINAL DIFF MANUAL Platelet Estimate NORMAL Platelet Morphology Comment NORMAL Laboratory Tests Test 06/29/16 05:16 Sodium Level 137 MEQ/L Potassium Level 3.9 MEQ/L Chloride Level 99 MEQ/L Carbon Dioxide Level 29.5 MEQ/L Anion Gap 9 MEQ/L Blood Urea Nitrogen 10 MG/DL Creatinine 0.49 MG/DL Estimat Glomerular Filtration 145 ML/MIN Rate Random Glucose 163 MG/DL Calcium Level 8.4 MG/DL Phosphorus Level 3.9 MG/DL Magnesium Level 2.0 MG/DL Total Bilirubin 3.6 MG/DL Aspartate Amino Transf 179 U/L (AST/SGOT) Alanine Aminotransferase 89 U/L (ALT/SGPT) Alkaline Phosphatase 153 U/L Total Protein 5.3 GM/DL Albumin 2.2 GM/DL Microbiology Date/Time Procedure Status Source Growth 06/27/16 13:25 Urine Culture - Final Complete Urine Clean Catch Ольга Albicans 06/28/16 02:15 Gram Stain - Final Complete Sputum Expectorated Sputum 06/28/16 02:15 Sputum Culture - Final Complete Sputum Expectorated Sputum HEAVY GROWTH NORMAL RESPIRATORY ARIANNA Imaging Chest X-Ray 06/27/16 0000 Signed Impressions: Service Date/Time: Monday, June 27, 2016 04:15 - CONCLUSION: Worsening bilateral infiltrates. Small right effusion. Chapo Egan Jr., MD CT Angiography 06/26/16 0000 Signed Impressions: Service Date/Time: Sunday, June 26, 2016 15:16 - CONCLUSION: 1. Negative for pulmonary embolus. 2. Worsening bilateral dense air space consolidation in both lungs. 3. Relatively stable bilateral pleural effusions, right greater than left. 4. Diffuse liver disease with mild ascites and hepatic enlargement. Silvino Jordan MD Chest CT 06/21/16 0000 Signed Impressions: Service Date/Time: Tuesday, June 21, 2016 21:50 - CONCLUSION: Widespread areas of consolidation involving the lower lobes bilaterally and the upper lobes bilaterally. This is nonspecific. It could be infectious. There are moderate bilateral pleural effusions and mild ascites. Qasim Phillips MD Abdomen Ultrasound 06/17/16 0000 Signed Impressions: Service Date/Time: Friday, June 17, 2016 10:00 - CONCLUSION: There is not enough fluid for safe paracentesis.. Harish Chaudhary MD FACR Thoracentesis Ultrasound 06/16/16 0000 Signed Impressions: Service Date/Time: May 14:13 - CONCLUSION: Uncomplicated ultrasound guided thoracentesis. Qasim Osuna MD Abdomen/Pelvis CT 06/10/16 0651 Signed Impressions: Service Date/Time: Friday, June 10, 2016 07:22 - CONCLUSION: 1. Enlarged fatty liver. 2. Mild splenomegaly. 3. Small to moderate amount of ascites within the abdomen and pelvis. 4. Small right pleural effusion. 5. Small hiatal hernia. 6. Cholelithiasis. Juan Leblanc MD Hepatobiliary Scan Nuclear Medicine 06/10/16 0000 Signed Impressions: Service Date/Time: Friday, June 10, 2016 12:50 - CONCLUSION: 1. Scintigraphic findings suggesting hepatocellular dysfunction with sluggish washout and persistent background activity. 2. Due to limited excretion, it is difficult to identify the extrahepatic biliary tree. However, activity is seen in the small bowel by 10 minutes. 3. No scintigraphic findings of acute cholecystitis. Bob Lara MD Cholangiopancreatography MRI 06/10/16 0000 Signed Impressions: Service Date/Time: Friday, June 10, 2016 12:25 - CONCLUSION: 1. Hepatosplenomegaly with significantly and inhomogeneously fatty infiltrated liver. 2. Slight ascites and bilateral pleural effusions. 3. Cholelithiasis and pericholecystic fluid and cholecystitis is not excluded. Mert Laurent MD Chest X-Ray 06/15/16 1259 Signed Impressions: Service Date/Time: Wednesday, June 15, 2016 13:21 - CONCLUSION: Slight worsening of right pleural effusion and right lung base consolidation, otherwise no change in left pleural effusion and probable mild case of pulmonary edema Mert Laurent MD Abdomen Ultrasound 06/14/16 0000 Signed Impressions: Service Date/Time: Tuesday, June 14, 2016 09:13 - CONCLUSION: 1. Small volume ascites Jamaal Eastman MD Hepatobiliary Scan Nuclear Medicine 06/10/16 0000 Signed Impressions: Service Date/Time: Friday, June 10, 2016 12:50 - CONCLUSION: 1. Scintigraphic findings suggesting hepatocellular dysfunction with sluggish washout and persistent background activity. 2. Due to limited excretion, it is difficult to identify the extrahepatic biliary tree. However, activity is seen in the small bowel by 10 minutes. 3. No scintigraphic findings of acute cholecystitis. Bob Lara MD Cholangiopancreatography MRI 06/10/16 0000 Signed Impressions: Service Date/Time: Friday, June 10, 2016 12:25 - CONCLUSION: 1. Hepatosplenomegaly with significantly and inhomogeneously fatty infiltrated liver. 2. Slight ascites and bilateral pleural effusions. 3. Cholelithiasis and pericholecystic fluid and cholecystitis is not excluded. Mert Laurent MD Physical Exam GENERAL: Awake and alert, comfortable at rest, on nasal [id number]. SKIN: cool and dry, jaundiced, has spider angiomata in her upper chest and UE. HEENT: Normocephalic, atraumatic. [place] conjunctivae. LEA. EOM full and intact. Has scleral icterus. No injection or drainage. Moist oral mucosa. No exudate. NECK: Trachea midline. No JVD or lymphadenopathy. Supple, nontender, no meningeal signs. CARDIOVASCULAR: . Regular rate and rhythm without murmurs, gallops, or rubs. RESPIRATORY: Bilateral rales, decreased at the bases. NO wheezing. Equal BS katie. GASTROINTESTINAL: Abdomen mildly distended, globular, has an enlarged liver, not tender on palpation. Bowel sounds present and normoactive. No guarding. No rebound. MUSCULOSKELETAL: Extremities without clubbing, cyanosis, or edema. No joint tenderness, effusion, or edema noted. No calf tenderness. NEUROLOGICAL: Non-focal PSYCH: Calm and cooperative LINE: PIV with no evidence of infection Assessment & Plan Remarks IMPRESSION Persistent leukocytosis, etiology, likely reactive - due to pulmonary process and steroids adding to it Bilateral pulmonary infiltrates, due to HCAP Respiratory failure due to katie infiltrates One (+) BC with propionibacterium C/W contamination - skin arianna - can be pathogenic but usually in setting where hardware present ETOH hepatitis Diarrhea, C diff negative RECOMMENDATION Change to Rocephin Follow CBC Taper steroids when ok with pulmonary Follow clinically CXR tomorrow Whit Rock MD June 30, 2016 13:15
--- NOTE | 2016-06-30 14:22 | HHI.CCPN ---
Subjective Remarks/Hospital Course This is a 31-year-old female without prior past medical history who initially presented to the hospital on 06/10 complaining of shortness of breath. At that time she was found to have end-stage liver disease which is being worked up. During his hospital admission she underwent drainage of pleural effusion for hypoxia. She presented in rapid response from the floor for worsening hypoxia. When I evaluated the patient on her arrival to the intensive care unit she was tach state on her cell phone and appeared in no apparent distress. However , she was significantly hypoxic with SPO2 of 85% on a nonrebreather. Despite the fact that she did not appear in distress, she did have trouble speaking in complete sentences, and was quite dyspneic on my evaluation. This limited the amount of history was able to obtain from her. She did state this was similar to her presenting shortness of breath almost a week ago. She denies any associated symptoms, and denies any changes today compared to prior days. Her chest x-ray does appear to have significant pulmonary edema with associated bilateral pleural effusions. Her BNP was elevated a few days ago and it is difficult to assess her volume status given that she has not had strict I's and O's. She does appear to be up 8 kg from admission weight. 06/22: Currently on high flow nasal cannula. Negative PFO on KARAN today. Appears comfortable. Bilateral infiltrates CT Chest Yesterday.. Still feels short of breath.. Received 120 mg IV Lasix last night 06/23: Currently on partial nonrebreather. Intermittent BiPAP overnight. States she is short of breath but appears comfortable. Not tachypneic or using accessory muscles. 06/24 Patient placed on BIPAP overnight 11/24 with 75% FIO2. Afebrile. 06/25: On BiPAP 1 hour last night. Satting 99% currently on partial nonrebreather. Appears comfortable not using accessory muscles. Tolerating diet. 06/26: Complaining of pleuritic chest pain/anxiety this a.m. appears quite anxious. Currently receiving Bumex per pulmonary recommendations. Chest pain is pleuritic likely associated with cough. 06/27 Patient states she is breathing better however CXR today showed worsening b/ l pulm infiltrates, afebrile. 06/28 No acute events overnight. On 5L oxygen. Afebrile. 06/29: Down to 4 L nasal cannula. Wants to go home. Cough is improved. Pleuritic chest pain is improved. Subjective 06/30: Afebrile. Complaining of increasing abdominal symptoms. On 7 L nasal cannula. Plan for paracentesis today. Received 1 dose of diuretic Objective Vital Signs Date Time Temp Pulse Resp B/P Pulse Ox O2 Delivery O2 Flow Rate FiO2 06/30/16 13:57 98.1 109 18 127/76 97 06/30/16 12:00 Nasal Cannula 7.00 06/27/16 12:00 50 Intake and Output 06/29/16 06/29/16 06/30/16 08:00 16:00 00:00 Intake Total 491 ml 1100 ml 1008 ml Output Total 1695 ml 400 ml 400 ml Balance -1204 ml 700 ml 608 ml Result Diagram: 06/29/16 0516 06/29/16 0516 Other Results Microbiology Date/Time Procedure Status Source Growth 06/28/16 02:15 Gram Stain - Final Complete Sputum Expectorated Sputum 06/28/16 02:15 Sputum Culture - Final Complete Sputum Expectorated Sputum HEAVY GROWTH NORMAL RESPIRATORY KYLE 06/27/16 13:25 Urine Culture - Final Complete Urine Clean Catch Ольга Albicans 06/26/16 11:22 Aerobic Blood Culture - Preliminary Resulted Blood Peripheral NO GROWTH IN 4 DAYS 06/26/16 11:22 Anaerobic Blood Culture - Preliminary Resulted Blood Peripheral NO GROWTH IN 4 DAYS Imaging Last Impressions Chest X-Ray 06/29/16 0000 Signed Impressions: Service Date/Time: Wednesday, June 29, 2016 04:38 - CONCLUSION: Some worsening of the left upper lobe infiltrate with the remaining diffuse bilateral pulmonary infiltrates unchanged. Chapo Egan Jr., MD CT Angiography 06/26/16 0000 Signed Impressions: Service Date/Time: Sunday, June 26, 2016 15:16 - CONCLUSION: 1. Negative for pulmonary embolus. 2. Worsening bilateral dense air space consolidation in both lungs. 3. Relatively stable bilateral pleural effusions, right greater than left. 4. Diffuse liver disease with mild ascites and hepatic enlargement. Silvino Jordan MD Chest CT 06/21/16 0000 Signed Impressions: Service Date/Time: Tuesday, June 21, 2016 21:50 - CONCLUSION: Widespread areas of consolidation involving the lower lobes bilaterally and the upper lobes bilaterally. This is nonspecific. It could be infectious. There are moderate bilateral pleural effusions and mild ascites. Qasim Phillips MD Abdomen Ultrasound 06/17/16 0000 Signed Impressions: Service Date/Time: Friday, June 17, 2016 10:00 - CONCLUSION: There is not enough fluid for safe paracentesis.. Harish Chaudhary MD FACR Thoracentesis Ultrasound 06/16/16 0000 Signed Impressions: Service Date/Time: May 14:13 - CONCLUSION: Uncomplicated ultrasound guided thoracentesis. Qasim Osuna MD Abdomen/Pelvis CT 06/10/16 0651 Signed Impressions: Service Date/Time: Friday, June 10, 2016 07:22 - CONCLUSION: 1. Enlarged fatty liver. 2. Mild splenomegaly. 3. Small to moderate amount of ascites within the abdomen and pelvis. 4. Small right pleural effusion. 5. Small hiatal hernia. 6. Cholelithiasis. Juan Leblanc MD Hepatobiliary Scan Nuclear Medicine 06/10/16 0000 Signed Impressions: Service Date/Time: Friday, June 10, 2016 12:50 - CONCLUSION: 1. Scintigraphic findings suggesting hepatocellular dysfunction with sluggish washout and persistent background activity. 2. Due to limited excretion, it is difficult to identify the extrahepatic biliary tree. However, activity is seen in the small bowel by 10 minutes. 3. No scintigraphic findings of acute cholecystitis. Bob Lara MD Cholangiopancreatography MRI 06/10/16 0000 Signed Impressions: Service Date/Time: Friday, June 10, 2016 12:25 - CONCLUSION: 1. Hepatosplenomegaly with significantly and inhomogeneously fatty infiltrated liver. 2. Slight ascites and bilateral pleural effusions. 3. Cholelithiasis and pericholecystic fluid and cholecystitis is not excluded. Mert Laurent MD Objective Remarks GENERAL: 31-year-old female, critically ill currently resting in bed on ga SKIN: Warm and dry. No rash HEAD: Atraumatic. Normocephalic. EYES: Pupils equal and round about 2-3 mm bilaterally and reactive. No scleral icterus. No injection or drainage. ENT: No nasal bleeding or discharge. Mucous membranes pink and moist. NECK: Trachea midline. No JVD. CARDIOVASCULAR: RRR. S1, S2 no S4. Currently without murmur, clicks, gallops or rubs RESPIRATORY: Coarse crackles appreciated throughout lung dean. Diminished at bases. No wheeze GASTROINTESTINAL: Abdomen soft, mild tenderness to deep palpation, somewhat protuberant. Hypoactive bowel sounds appreciated MUSCULOSKELETAL: Extremities with trace lower extremity edema. No obvious deformities. NEUROLOGICAL: Awake and alert. No obvious cranial nerve deficits. Motor grossly within normal limits. Five out of 5 muscle strength in the arms and legs. Normal speech. PSYCHIATRIC: Appropriate mood and affect; insight and judgment normal. Procedures 06/16- thoracentesis 500 cc out- transudate A/P Assessment and Plan Neuro/Psych: EtOH Continue thiamine folate and multivitamin daily for EtOH use Ativan 0.5 every 8 hours when necessary anxiety [place] for pain Morphine PRN for breakthrough pain. CV: Monitor HR and BP keep MAP>65mmHg. On Lopressor 12.5mg BID for rate control. Echo showed EF 50-55%, no regional wall motion abnormality Resp: Acute hypoxemic respiratory failure Continue with oxygen keep sat >92% currently in 7 L Bronchodilators ( DuoNeb every 6 hours, Pulmicort twice a day) NIPPV for resp distress CXR 06/29 showed worsening b/l pulm infiltrates, especially left upper lobe 06/26 CTA chest : No PE, Worsening bilateral dense air space consolidation in both lungs. Diffuse liver disease with mild ascites and hepatic enlargement Status post thoracentesis 800 cc transudative right side 06/16 - Continue Solumedrol 40 mg IV Q12 2 dosages of Bumex 1 mg GI: Cholelithiasis Abdominal ascites Elevated transaminases Elevated bilirubin Elevated anti-1 antitrypsin 06/10 - MRCP - hepatosplenomegaly. - Ascites - cannot rule out cholecystitis 06/10 - HIDA scan - negative for cholecystitis Seen by gastroenterology. Negative hepatitis, AMA, ASMA, AMA and ceruloplasmin. Had signed off Currently on regular diet Hepatitis profile negative Continue pentoxifylline 400 mg by mouth 3 times a day Plan therapeutic paracentesis today with IR /FEN: Monitor renal function, I/O's, electrolytes replacement per protocol. Endo: Sliding scale insulin for glycemic control Heme: Leukocytosis Macrocytic anemia Monitor CBC ID: Continue with abx (Rocephin) ID is following BC from 06/26-NGTD, 06/28 negative sputum and urine cxs. Monitor for signs of infections ( Fever, WBC) 5/5 sputum cx, strep pneumonia and Legionella urinary Ag all negative MSK: PT evaluate and treat Currently on Os-Zac twice a day Access - Utilize peripheral IV. Prophylaxis - GI - Protonix - DVT - SCD/ Level 2 Wang Jacobs MD June 30, 2016 14:22
[2016-06-30] MEDS: cefTRIAXone INJ 2,000 MG in SODIUM CHLORIDE 0.9% INJ 100 ML IV SCH (15:22)
[2016-06-30] MEDS: RESP: ALBUTEROL 2.5 MG/IPRATROPIUM 0.5 MG NEB (PRN) NEB (16:16)
[2016-06-30] MEDS: BUMETANIDE INJ 1 MG/4 ML VIAL IV PUSH SCH (16:25)
--- NOTE | 2016-06-30 16:31 | RADRPT ---
EXAM DATE/TIME: 06/30/2016 10:55 [facility] COMPARISON: No previous studies available for comparison. INDICATIONS : Ascites. MEDICAL HISTORY : ETOH. Abdominal pain. Nausea and vomiting. SURGICAL HISTORY : Right knee surgery. ENCOUNTER: Initial ACUITY: 1 day PAIN SCORE: 0/10 LOCATION: Right abdomen. FLUID: Total volume of 1800 cc of clear, yellow fluid was removed. Fluid was discarded. Paracentesis was therapeutic only. Post procedure scanning reveals no hematoma or other complication. TECHNIQUE: 1. Ultrasound guidance for abdominal paracentesis. 2. Paracentesis. The risks, benefits, and alternatives to ultrasound guided paracentesis were explained to the patient in detail including the risk of bleeding and infection. Written and verbal informed consent was obt ained. With the patient on the ultrasound table, ultrasound imaging was used to select the most appropriate approach for paracentesis. Overlying skin was prepped and draped in the usual sterile fashion and wi th a local anesthetic, a dermatotomy was made with an 11 blade scalpel. A 6 [place] W[employer]-T-iftdrioc ca theter was introduced into the peritoneal cavity and fluid was collected. The patient tolerated the procedure well and left the ultrasound suite in stable condition. CONCLUSION: Uncomplicated ultrasound guided paracentesis. Garret Verma MD on June 30, 2016 at 16:29 Board Certified Radiologist. This report was verified electronically.
--- NOTE | 2016-06-30 16:38 | RADRPT ---
EXAM DATE/TIME: 06/30/2016 15:27 [facility] COMPARISON: CHEST SINGLE AP, June 29, 2016, 4:38. INDICATIONS : Pneumonia. MEDICAL HISTORY : None. SURGICAL HISTORY : None. ENCOUNTER: Subsequent ACUITY: 2 weeks PAIN SCORE: 0/10 LOCATION: Bilateral chest FINDINGS: A single view of the chest demonstrates bilateral dense lung consolidation, worse in the left upper l obe. Findings similar to June 29. Small effusions. CONCLUSION: 1. Bilateral airspace consolidation, left greater than right similar to June 29. No new findings. Silvino Jordan MD on June 30, 2016 at 16:33 Board Certified Radiologist. This report was verified electronically.
--- NOTE | 2016-06-30 20:08 | HHI.PR ---
Subjective Remarks 06/26 Patient is off BIPAP. Weaned to4 LNC . Afebrile. Feels abd getting bigger Breathing better Had Paracentesis done Drinks lot of water, ICE Objective Vital Signs Vital Signs Date Time Temp Pulse Resp B/P Pulse Ox O2 Delivery O2 Flow Rate FiO2 06/30/16 18:00 96 06/30/16 17:24 18 06/30/16 16:30 18 06/30/16 16:21 20 06/30/16 16:00 97.8 101 20 125/62 95 06/30/16 16:00 95 Nasal Cannula 7.00 06/30/16 16:00 97 06/30/16 14:44 98.0 110 18 126/78 96 06/30/16 14:35 98.0 110 18 126/78 96 06/30/16 13:57 98.1 109 18 127/76 97 06/30/16 12:00 93 Nasal Cannula 7.00 06/30/16 12:00 98.0 96 18 116/82 93 06/30/16 12:00 96 06/30/16 10:00 108 06/30/16 09:08 98 Nasal Cannula 5.00 06/30/16 08:00 95 Nasal Cannula 7.00 06/30/16 08:00 94 06/30/16 08:00 98.6 94 16 110/65 94 06/30/16 06:00 95 06/30/16 04:00 97 06/30/16 04:00 92 Nasal Cannula 7.00 06/30/16 04:00 98.7 96 20 115/71 93 06/30/16 02:00 98 06/30/16 00:00 104 06/30/16 00:00 98.6 104 40 111/69 89 06/30/16 00:00 89 Nasal Cannula 7.00 06/29/16 22:00 109 06/29/16 21:19 94 Nasal Cannula 6.00 I/O 06/29/16 06/29/16 06/29/16 06/30/16 06/30/16 06/30/16 07:00 15:00 23:00 07:00 15:00 23:00 Intake Total 491 ml 1100 ml 1008 ml 529 ml Output Total 1695 ml 400 ml 400 ml 200 ml 600 ml Balance -1204 ml 700 ml 608 ml 329 ml -600 ml Intake Oral 240 ml 600 ml 720 ml 240 ml IV Total 251 ml 500 ml 288 ml 289 ml Output Urine Total 1695 ml 400 ml 400 ml 200 ml 600 ml Stool Total 0 ml # Voids 2 # Bowel Movements 2 1 0 1 Result Diagram: 06/29/1651506/29/16515 Objective Remarks GENERAL: Patient is 31 yo on partial rebreather SKIN: Warm and dry. HEAD: Normocephalic. EYES: No scleral icterus. No injection or drainage. NECK: Supple, trachea midline. No JVD or lymphadenopathy. CARDIOVASCULAR: Tachycardic without murmurs, gallops, or rubs. RESPIRATORY: Breath sounds equal bilaterally. Few coarse BS GASTROINTESTINAL: Abdomen soft, non-tender, nondistended. MUSCULOSKELETAL: No cyanosis, or edema. Neuro: Awake and alert A/P Assessment and Plan Resp Insuff Pneumonia Pleural effusion, s/p Thoracentesis Leukocytosis Anemia Alcohlic hepatitis ETOH use Nicotine use PLAN: Supplement 02 with NC 5Lit Continue with oxygen keep sat >92% Bronchodilators, IS CXR from 06/25: Mild increased opacity in left perihilar region with improved opacity in the right upper lobe. Small right effusion. Currently on Pulmicort twice a day/DuoNeb Status post thoracentesis 800 cc transudative right side 06/16 - Continue with abx (Zosyn), Monitor for signs of infections strep pneumonia and legionella urinary ag negative. Sputum cx 06/24: normal resp arianna. GI/DVT prophylaxis Continue treatment plan. Decrease Fluid intake. Tomi Mckeon MD June 30, 2016 20:07
[2016-06-30] MEDS: POTASSIUM CHLORIDE 20 MEQ CONTROLLED RELEASE TAB PO SCH (20:18)
[2016-07-01] VITALS (11 sets, daily range): BP systolic 105–133; BP diastolic 59–82; PULSE 100–113; RESP 18–20; TEMP 97.4–98.2; O2SAT 93–95
[2016-07-01] MEDS: RESP: ALBUTEROL 2.5 MG/IPRATROPIUM 0.5 MG NEB (SCH) NEB ×2 (02:55→07:51)
[2016-07-01] MEDS: PENTOXIFYLLINE 400 MG CONTROLLED RELEASE TAB PO SCH ×3 (05:49→20:14)
[2016-07-01] MEDS: MORPHINE SULFATE 4 MG/ML INJ IV PUSH PRN ×4 (05:50→20:15)
[2016-07-01] MEDS: INSULIN NovoLIN REGULAR SUPPLEMENTAL SCALE SQ SCH ×4 (06:45→22:11)
[2016-07-01 06:59] LABS: AUTOMATED NEUTROPHIL # 22.1 TH/MM3 (1.8-7.7); BASOPHIL # 0.1 TH/MM3 (0-0.2); BASOPHIL % 0.2 % (0.0-2.0); HEMATOCRIT 29.6 % (35.0-46.0); HEMO FLAGS DIFF FINAL; LYMPH % 2.2 % (9.0-44.0); LYMPHOCYTE # 0.5 TH/MM3 (1.0-4.8); MEAN CELL VOLUME 103.1 FL (80.0-100.0); MEAN CORPUSCULAR HEMOGLOBIN 32.6 PG (27.0-34.0); MEAN CORPUSCULAR HGB CONC 31.7 % (32.0-36.0); MONO % 5.9 % (0.0-8.0); NEUT % 91.7 % (16.0-70.0); PLATELET COUNT 154 TH/MM3 (150-450); RED BLOOD COUNT 2.87 MIL/MM3 (4.00-5.30); RED CELL DISTRIBUTION WIDTH 15.4 % (11.6-17.2); WHITE BLOOD COUNT 24.2 TH/MM3 (4.0-11.0)
[2016-07-01 07:29] LABS: ALKALINE PHOSPHATASE 157 U/L (45-117); ALT (GPT) 90 U/L (10-53); ANION GAP 10 MEQ/L (5-15); AST (GOT) 129 U/L (15-37); BICARBONATE 28.3 MEQ/L (21.0-32.0); BLOOD UREA NITROGEN 10 MG/DL (7-18); CHLORIDE 99 MEQ/L (98-107); GLOMERULAR FILTRATION RATE 139 ML/MIN (>89); MAGNESIUM 1.8 MG/DL (1.5-2.5); POTASSIUM 4.3 MEQ/L (3.5-5.1); SODIUM (NA) 137 MEQ/L (136-145); TOTAL BILIRUBIN ADULT 2.3 MG/DL (0.2-1.0)
[2016-07-01] MEDS: RESP: BUDESONIDE 0.5 MG/2 ML NEB NEB SCH (07:51)
[2016-07-01] MEDS: CALCIUM CARBONATE 1.25 GM (CA 500 MG) TAB PO SCH ×2 (08:20→20:14)
[2016-07-01] MEDS: PANTOPRAZOLE SOD 40 MG DELAYED RELEASE TAB PO SCH (08:20)
[2016-07-01] MEDS: POTASSIUM CHLORIDE 20 MEQ CONTROLLED RELEASE TAB PO SCH (08:20)
[2016-07-01] MEDS: ACETAMINOPHEN/HYDROcodone 325 MG/5 MG TAB PO PRN ×3 (08:20→22:05)
[2016-07-01] MEDS: THIAMINE HCL 100 MG TAB PO SCH (08:20)
[2016-07-01] MEDS: FOLIC ACID 1 MG TAB PO SCH (08:20)
[2016-07-01] MEDS: MULTIVITAMIN TAB PO SCH (08:20)
[2016-07-01] MEDS: BUMETANIDE INJ 1 MG/4 ML VIAL IV PUSH SCH (08:21)
[2016-07-01] MEDS: methylPREDNISolone SOD SUCC 40 MG/1 ML VIAL IV PUSH SCH ×2 (08:21→20:16)
[2016-07-01] MEDS: HEPARIN SODIUM - SQ 10,000 UNITS/ML VIAL SQ SCH ×2 (08:21→20:16)
[2016-07-01] MEDS: METOPROLOL TARTRATE 25 MG TAB PO SCH ×2 (08:22→20:15)
[2016-07-01] MEDS: RIFAXIMIN 550 MG TAB PO SCH ×2 (08:22→22:05)
[2016-07-01] MEDS: HYDROCORTISONE 1% CREAM 30 GM TOPICAL SCH (08:22)
[2016-07-01] MEDS: SODIUM CHLORIDE 0.9% FLUSH 10 ML FLUSH IV FLUSH SCH ×2 (08:22→20:16)
[2016-07-01] MEDS: LORazepam 0.5 MG TAB PO PRN ×2 (08:32→16:45)
[2016-07-01] MEDS ORDERED: CALCIUM CARBONATE 500 MG CHEWABLE TAB CHEW PRN (13:00)
--- NOTE | 2016-07-01 13:09 | HHI.CCPN ---
Subjective Remarks/Hospital Course This is a 31-year-old female without prior past medical history who initially presented to the hospital on 06/10 complaining of shortness of breath. At that time she was found to have end-stage liver disease which is being worked up. During his hospital admission she underwent drainage of pleural effusion for hypoxia. She presented in rapid response from the floor for worsening hypoxia. When I evaluated the patient on her arrival to the intensive care unit she was tach state on her cell phone and appeared in no apparent distress. However , she was significantly hypoxic with SPO2 of 85% on a nonrebreather. Despite the fact that she did not appear in distress, she did have trouble speaking in complete sentences, and was quite dyspneic on my evaluation. This limited the amount of history was able to obtain from her. She did state this was similar to her presenting shortness of breath almost a week ago. She denies any associated symptoms, and denies any changes today compared to prior days. Her chest x-ray does appear to have significant pulmonary edema with associated bilateral pleural effusions. Her BNP was elevated a few days ago and it is difficult to assess her volume status given that she has not had strict I's and O's. She does appear to be up 8 kg from admission weight. 06/22: Currently on high flow nasal cannula. Negative PFO on KARAN today. Appears comfortable. Bilateral infiltrates CT Chest Yesterday.. Still feels short of breath.. Received 120 mg IV Lasix last night 06/23: Currently on partial nonrebreather. Intermittent BiPAP overnight. States she is short of breath but appears comfortable. Not tachypneic or using accessory muscles. 06/24 Patient placed on BIPAP overnight 11/24 with 75% FIO2. Afebrile. 06/25: On BiPAP 1 hour last night. Satting 99% currently on partial nonrebreather. Appears comfortable not using accessory muscles. Tolerating diet. 06/26: Complaining of pleuritic chest pain/anxiety this a.m. appears quite anxious. Currently receiving Bumex per pulmonary recommendations. Chest pain is pleuritic likely associated with cough. 06/27 Patient states she is breathing better however CXR today showed worsening b/ l pulm infiltrates, afebrile. 06/28 No acute events overnight. On 5L oxygen. Afebrile. 06/29: Down to 4 L nasal cannula. Wants to go home. Cough is improved. Pleuritic chest pain is improved. 06/30: Afebrile. Complaining of increasing abdominal symptoms. On 7 L nasal cannula. Plan for paracentesis today. Received 1 dose of diuretic Subjective 07/01: Afebrile. Status post paracentesis yesterday 1800 cc. Feels subjectively better. Complaining of edema in bilateral lower extremities 4 L nasal cannula Objective Vital Signs Date Time Temp Pulse Resp B/P Pulse Ox O2 Delivery O2 Flow Rate FiO2 07/01/16 10:00 101 07/01/16 09:20 18 07/01/16 08:00 94 Nasal Cannula 7.00 50 07/01/16 08:00 98.0 105/59 Intake and Output 06/30/16 06/30/16 07/01/16 08:00 16:00 00:00 Intake Total 529 ml 340 ml Output Total 200 ml 600 ml Balance 329 ml -600 ml 340 ml Result Diagram: 07/01/16 0603 07/01/16 0603 Other Results Microbiology Date/Time Procedure Status Source Growth 06/28/16 02:15 Gram Stain - Final Complete Sputum Expectorated Sputum 06/28/16 02:15 Sputum Culture - Final Complete Sputum Expectorated Sputum HEAVY GROWTH NORMAL RESPIRATORY KYLE 06/27/16 13:25 Urine Culture - Final Complete Urine Clean Catch Ольга Albicans Imaging Last Impressions Cyst Biopsy Asp-Paracentesis US 06/30/16 0000 Signed Impressions: Service Date/Time: June 10:55 - CONCLUSION: Uncomplicated ultrasound guided paracentesis. Garret Verma MD Chest X-Ray 06/30/16 0000 Signed Impressions: Service Date/Time: June 15:27 - CONCLUSION: 1. Bilateral airspace consolidation, left greater than right similar to June 29. No new findings. Silvino Jordan MD CT Angiography 06/26/16 0000 Signed Impressions: Service Date/Time: Sunday, June 26, 2016 15:16 - CONCLUSION: 1. Negative for pulmonary embolus. 2. Worsening bilateral dense air space consolidation in both lungs. 3. Relatively stable bilateral pleural effusions, right greater than left. 4. Diffuse liver disease with mild ascites and hepatic enlargement. Silvino Jordan MD Chest CT 06/21/16 0000 Signed Impressions: Service Date/Time: Tuesday, June 21, 2016 21:50 - CONCLUSION: Widespread areas of consolidation involving the lower lobes bilaterally and the upper lobes bilaterally. This is nonspecific. It could be infectious. There are moderate bilateral pleural effusions and mild ascites. Qasim Phillips MD Abdomen Ultrasound 06/17/16 0000 Signed Impressions: Service Date/Time: Friday, June 17, 2016 10:00 - CONCLUSION: There is not enough fluid for safe paracentesis.. Harish Chaudhary MD FACR Thoracentesis Ultrasound 06/16/16 0000 Signed Impressions: Service Date/Time: May 14:13 - CONCLUSION: Uncomplicated ultrasound guided thoracentesis. Qasim Osuna MD Abdomen/Pelvis CT 06/10/16 0651 Signed Impressions: Service Date/Time: Friday, June 10, 2016 07:22 - CONCLUSION: 1. Enlarged fatty liver. 2. Mild splenomegaly. 3. Small to moderate amount of ascites within the abdomen and pelvis. 4. Small right pleural effusion. 5. Small hiatal hernia. 6. Cholelithiasis. Juan Leblanc MD Hepatobiliary Scan Nuclear Medicine 06/10/16 0000 Signed Impressions: Service Date/Time: Friday, June 10, 2016 12:50 - CONCLUSION: 1. Scintigraphic findings suggesting hepatocellular dysfunction with sluggish washout and persistent background activity. 2. Due to limited excretion, it is difficult to identify the extrahepatic biliary tree. However, activity is seen in the small bowel by 10 minutes. 3. No scintigraphic findings of acute cholecystitis. Bob Lara MD Cholangiopancreatography MRI 06/10/16 0000 Signed Impressions: Service Date/Time: Friday, June 10, 2016 12:25 - CONCLUSION: 1. Hepatosplenomegaly with significantly and inhomogeneously fatty infiltrated liver. 2. Slight ascites and bilateral pleural effusions. 3. Cholelithiasis and pericholecystic fluid and cholecystitis is not excluded. Mert Laurent MD Objective Remarks GENERAL: 31-year-old female, critically ill currently resting in bed on nasal cannula SKIN: Warm and dry. No rash HEAD: Atraumatic. Normocephalic. EYES: Pupils equal and round about 2-3 mm bilaterally and reactive. No scleral icterus. No injection or drainage. ENT: No nasal bleeding or discharge. Mucous membranes pink and moist. NECK: Trachea midline. No JVD. CARDIOVASCULAR: RRR. S1, S2 no S4. Currently without murmur, clicks, gallops or rubs RESPIRATORY: Coarse crackles appreciated throughout lung dean. Diminished at bases. No wheeze GASTROINTESTINAL: Abdomen soft, mild tenderness to deep palpation, somewhat protuberant. Hypoactive bowel sounds appreciated MUSCULOSKELETAL: Extremities with 1 plus pitting lower extremity edema. No obvious deformities. NEUROLOGICAL: Awake and alert. No obvious cranial nerve deficits. Motor grossly within normal limits. Five out of 5 muscle strength in the arms and legs. Normal speech. PSYCHIATRIC: Appropriate mood and affect; insight and judgment normal. Procedures 06/16- thoracentesis 500 cc out- transudate A/P Assessment and Plan Neuro/Psych: EtOH Continue thiamine folate and multivitamin daily for EtOH use Ativan 0.5 every 8 hours when necessary anxiety [place] for pain Morphine PRN for breakthrough pain. CV: Monitor HR and BP keep MAP>65mmHg. On Lopressor 12.5mg BID for rate control. Echo showed EF 50-55%, no regional wall motion abnormality Resp: Acute hypoxemic respiratory failure Continue with oxygen keep sat >92% currently on 4 L Bronchodilators ( DuoNeb every 6 hours, Pulmicort twice a day) NIPPV for resp distress CXR 06/29 showed worsening b/l pulm infiltrates, especially left upper lobe 06/26 CTA chest : No PE, Worsening bilateral dense air space consolidation in both lungs. Diffuse liver disease with mild ascites and hepatic enlargement Status post thoracentesis 800 cc transudative right side 06/16 - Continue Solumedrol 40 mg IV Q12 Follow-up Doppler bilateral lower extremity edema GI: Cholelithiasis Abdominal ascites Elevated transaminases Elevated bilirubin Elevated anti-1 antitrypsin 06/10 - MRCP - hepatosplenomegaly. - Ascites - cannot rule out cholecystitis 06/10 - HIDA scan - negative for cholecystitis Seen by gastroenterology. Negative hepatitis, AMA, ASMA, AMA and ceruloplasmin. Had signed off Currently on regular diet Hepatitis profile negative Continue pentoxifylline 400 mg by mouth 3 times a day 06/30 - therapeutic paracentesis -1800 cc /FEN: Monitor renal function, I/O's, electrolytes replacement per protocol. Endo: Sliding scale insulin for glycemic control Heme: Leukocytosis Macrocytic anemia Monitor CBC ID: Continue with abx (Rocephin) ID is following BC from 06/26-NGTD, 06/28 negative sputum and urine cxs. Monitor for signs of infections ( Fever, WBC) 06/24 sputum cx, strep pneumonia and Legionella urinary Ag all negative MSK: PT evaluate and treat Currently on Os-Zac twice a day Access - Utilize peripheral IV. Prophylaxis - GI - Protonix - DVT - SCD/ Level 2 Patient is stable from a critical care medicine standpoint we'll assign care to hospitalist in a.m. 07/02 Wang Jacobs MD July 01, 2016 13:09
[2016-07-01] MEDS: cefTRIAXone INJ 2,000 MG in SODIUM CHLORIDE 0.9% INJ 100 ML IV SCH (13:11)
--- NOTE | 2016-07-01 14:39 | HHI.IDPN ---
Subjective Subjective Remarks Notes reviewed On nasal O2 Cough better Not SOB Last CXR stable Sputum normal arianna Legionella and Pneumococcal Ag negative WBC higher today no fever Had paracentesis yesterday She is on Solumedrol, Rocephin Echo with good LV function D/W patient regarding HIV testing - she agrees; states she has been a while; think she had HIV testing 7 years ago with her last baby Antibiotics Rocephin Lines PIV Past Medical History ETOH abuse Arthroscopic surgery to knee Allergies: Coded Allergies: No Known Allergies (Unverified , 06/10/16) Objective . Vital Signs Date Time Temp Pulse Resp B/P Pulse Ox O2 Delivery O2 Flow Rate FiO2 07/01/16 14:00 101 07/01/16 13:16 18 07/01/16 12:00 97 Nasal Cannula 7.00 50 07/01/16 12:00 109 07/01/16 10:00 101 07/01/16 09:20 18 07/01/16 08:00 94 Nasal Cannula 7.00 50 07/01/16 08:00 109 07/01/16 08:00 98.0 100 18 105/59 95 07/01/16 07:52 93 Nasal Cannula 5.00 07/01/16 06:00 101 07/01/16 04:00 109 07/01/16 04:00 98.2 109 20 120/78 94 07/01/16 04:00 94 Nasal Cannula 7.00 50 07/01/16 02:00 103 07/01/16 00:00 104 07/01/16 00:00 94 Nasal Cannula 7.00 50 07/01/16 00:00 98.2 104 20 117/65 94 06/30/16 22:03 95 Nasal Cannula 5.00 06/30/16 22:00 105 06/30/16 20:00 88 Nasal Cannula 7.00 50 06/30/16 20:00 122 06/30/16 20:00 97.9 122 16 117/64 88 06/30/16 18:00 96 06/30/16 17:24 18 06/30/16 16:00 97.8 101 20 125/62 95 06/30/16 16:00 95 Nasal Cannula 7.00 06/30/16 16:00 97 06/30/16 14:44 98.0 110 18 126/78 96 06/30/16 06/30/1617 15:00 23:00 07:00 Intake Total 340 ml 500 ml Output Total 600 ml Balance -260 ml 500 ml Intake Oral 200 ml 500 ml IV Total 140 ml Output Urine Total 600 ml # Voids 5 3 # Bowel Movements 1 1 . Laboratory Tests Test 07/01/16 06:03 White Blood Count 24.2 TH/MM3 Red Blood Count 2.87 MIL/MM3 Hemoglobin 9.4 GM/DL Hematocrit 29.6 % Mean Corpuscular Volume 103.1 FL Mean Corpuscular Hemoglobin 32.6 PG Mean Corpuscular Hemoglobin 31.7 % Concent Red Cell Distribution Width 15.4 % Platelet Count 154 TH/MM3 Mean Platelet Volume 10.6 FL Neutrophils (%) (Auto) 91.7 % Lymphocytes (%) (Auto) 2.2 % Monocytes (%) (Auto) 5.9 % Eosinophils (%) (Auto) 0.0 % Basophils (%) (Auto) 0.2 % Neutrophils # (Auto) 22.1 TH/MM3 Lymphocytes # (Auto) 0.5 TH/MM3 Monocytes # (Auto) 1.4 TH/MM3 Eosinophils # (Auto) 0.0 TH/MM3 Basophils # (Auto) 0.1 TH/MM3 CBC Comment DIFF FINAL Differential Comment Laboratory Tests Test 07/01/16 06:03 Sodium Level 137 MEQ/L Potassium Level 4.3 MEQ/L Chloride Level 99 MEQ/L Carbon Dioxide Level 28.3 MEQ/L Anion Gap 10 MEQ/L Blood Urea Nitrogen 10 MG/DL Creatinine 0.51 MG/DL Estimat Glomerular Filtration 139 ML/MIN Rate Random Glucose 166 MG/DL Calcium Level 8.4 MG/DL Phosphorus Level 2.3 MG/DL Magnesium Level 1.8 MG/DL Total Bilirubin 2.3 MG/DL Aspartate Amino Transf 129 U/L (AST/SGOT) Alanine Aminotransferase 90 U/L (ALT/SGPT) Alkaline Phosphatase 157 U/L Total Protein 5.7 GM/DL Albumin 2.3 GM/DL Imaging Chest X-Ray 06/27/16 0000 Signed Impressions: Service Date/Time: Monday, June 27, 2016 04:15 - CONCLUSION: Worsening bilateral infiltrates. Small right effusion. Chapo Egan Jr., MD CT Angiography 06/26/16 0000 Signed Impressions: Service Date/Time: Sunday, June 26, 2016 15:16 - CONCLUSION: 1. Negative for pulmonary embolus. 2. Worsening bilateral dense air space consolidation in both lungs. 3. Relatively stable bilateral pleural effusions, right greater than left. 4. Diffuse liver disease with mild ascites and hepatic enlargement. Silvino Jordan MD Chest CT 06/21/16 Signed Impressions: Service Date/Time: Tuesday, June 21, 2016 21:50 - CONCLUSION: Widespread areas of consolidation involving the lower lobes bilaterally and the upper lobes bilaterally. This is nonspecific. It could be infectious. There are moderate bilateral pleural effusions and mild ascites. Qasim Phillips MD Abdomen Ultrasound 06/17/16 Signed Impressions: Service Date/Time: Friday, June 17, 2016 10:00 - CONCLUSION: There is not enough fluid for safe paracentesis.. Harish Chaudhary MD FACR Thoracentesis Ultrasound 06/16/16 Signed Impressions: Service Date/Time: May 14:13 - CONCLUSION: Uncomplicated ultrasound guided thoracentesis. Qasim Osuna MD Abdomen/Pelvis CT 06/10/16 0651 Signed Impressions: Service Date/Time: Friday, June 10, 2016 07:22 - CONCLUSION: 1. Enlarged fatty liver. 2. Mild splenomegaly. 3. Small to moderate amount of ascites within the abdomen and pelvis. 4. Small right pleural effusion. 5. Small hiatal hernia. 6. Cholelithiasis. Juan Leblanc MD Hepatobiliary Scan Nuclear Medicine 06/10/16 Signed Impressions: Service Date/Time: Friday, June 10, 2016 12:50 - CONCLUSION: 1. Scintigraphic findings suggesting hepatocellular dysfunction with sluggish washout and persistent background activity. 2. Due to limited excretion, it is difficult to identify the extrahepatic biliary tree. However, activity is seen in the small bowel by 10 minutes. 3. No scintigraphic findings of acute cholecystitis. Bob Lara MD Cholangiopancreatography MRI 06/10/16 Signed Impressions: Service Date/Time: Friday, June 10, 2016 12:25 - CONCLUSION: 1. Hepatosplenomegaly with significantly and inhomogeneously fatty infiltrated liver. 2. Slight ascites and bilateral pleural effusions. 3. Cholelithiasis and pericholecystic fluid and cholecystitis is not excluded. Mert Laurent MD Chest X-Ray 06/15/16 1259 Signed Impressions: Service Date/Time: Wednesday, June 15, 2016 13:21 - CONCLUSION: Slight worsening of right pleural effusion and right lung base consolidation, otherwise no change in left pleural effusion and probable mild case of pulmonary edema Mert Laurent MD Abdomen Ultrasound 06/14/16 0000 Signed Impressions: Service Date/Time: Tuesday, June 14, 2016 09:13 - CONCLUSION: 1. Small volume ascites Jamaal Eastman MD Hepatobiliary Scan Nuclear Medicine 06/10/16 0000 Signed Impressions: Service Date/Time: Friday, June 10, 2016 12:50 - CONCLUSION: 1. Scintigraphic findings suggesting hepatocellular dysfunction with sluggish washout and persistent background activity. 2. Due to limited excretion, it is difficult to identify the extrahepatic biliary tree. However, activity is seen in the small bowel by 10 minutes. 3. No scintigraphic findings of acute cholecystitis. Bob Lara MD Cholangiopancreatography MRI 06/10/16 0000 Signed Impressions: Service Date/Time: Friday, June 10, 2016 12:25 - CONCLUSION: 1. Hepatosplenomegaly with significantly and inhomogeneously fatty infiltrated liver. 2. Slight ascites and bilateral pleural effusions. 3. Cholelithiasis and pericholecystic fluid and cholecystitis is not excluded. Mert Laurent MD Physical Exam GENERAL: Awake and alert, NAD, on nasal O2 SKIN: cool and dry, jaundiced, has spider angiomata in her upper chest, improving HEENT: Normocephalic, atraumatic. [place]azie conjunctivae. LEA. Has less scleral icterus. Moist oral mucosa. NECK: Trachea midline. No JVD or lymphadenopathy. Supple, nontender, no meningeal signs. CARDIOVASCULAR: . Regular rate and rhythm without murmurs, gallops, or rubs. RESPIRATORY: decreased at the bases. NO wheezing. Equal BS katie. GASTROINTESTINAL: Abdomen mildly distended, globular, soft and not tender. Bowel sounds present and normoactive. No guarding. No rebound. MUSCULOSKELETAL: Extremities without clubbing, cyanosis, or edema. No joint tenderness, effusion, or edema noted. No calf tenderness. NEUROLOGICAL: Non-focal PSYCH: Calm and cooperative LINE: PIV with no evidence of infection Assessment & Plan Remarks IMPRESSION Persistent leukocytosis, etiology, likely reactive - due to pulmonary process and steroids adding to it - higher today - patient however looks much improved Bilateral pulmonary infiltrates, due to HCAP Respiratory failure due to katie infiltrates One (+) BC with propionibacterium C/W contamination - skin arianna - can be pathogenic but usually in setting where hardware present ETOH hepatitis Diarrhea, C diff negative RECOMMENDATION Continue Rocephin PO Ceftin starting tomorrow and give 7 days - complete Rx for PNA HIV testing - she agrees to have test done to complete work-up Follow CBC Taper steroids when ok with pulmonary Follow clinically She clinically is improving Other ID MD covering 07/02-07/04 if needed Whit Rock MD July 01, 2016 14:39
--- NOTE | 2016-07-01 17:14 | PD.TRANSFR ---
Transfer Summary Admission Date Jun 10, 2016 at 09:04 Transfer Date: July 01, 2016 Admitting Diagnosis hypokalemia, hyperbilirubinemia, vomiting Diagnoses: (1) Ascites Diagnosis: Principal (2) Pleural effusion Diagnosis: Principal (3) Sepsis Diagnosis: Principal (4) Hyperbilirubinemia Diagnosis: Principal (5) Pneumonia Diagnosis: Principal Significant Findings 6. Pneumonia Transfer Summary/Subjective 31-year-old female. Data admission June 10, 2016. ICU for several days secondary to acute hypoxic respiratory failure secondary to pneumonia. Negative imaging. Negative microbiology studies. Currently down to 4 L nasal cannula Objective Vital Signs Date Time Temp Pulse Resp B/P Pulse Ox O2 Delivery O2 Flow Rate FiO2 07/01/16 16:00 97.4 104 18 119/69 93 07/01/16 12:00 Nasal Cannula 7.00 50 Intake and Output 06/30/16 06/30/16 07/01/16 08:00 16:00 00:00 Intake Total 529 ml 340 ml Output Total 200 ml 600 ml Balance 329 ml -600 ml 340 ml Result Diagram: 07/01/16 0603 07/01/16 0603 Imaging Last Impressions Cyst Biopsy Asp-Paracentesis US 06/30/16 0000 Signed Impressions: Service Date/Time: June 10:55 - CONCLUSION: Uncomplicated ultrasound guided paracentesis. Garret Verma MD Chest X-Ray 06/30/16 0000 Signed Impressions: Service Date/Time: June 15:27 - CONCLUSION: 1. Bilateral airspace consolidation, left greater than right similar to June 29. No new findings. Silvino Jordan MD CT Angiography 06/26/16 0000 Signed Impressions: Service Date/Time: Sunday, June 26, 2016 15:16 - CONCLUSION: 1. Negative for pulmonary embolus. 2. Worsening bilateral dense air space consolidation in both lungs. 3. Relatively stable bilateral pleural effusions, right greater than left. 4. Diffuse liver disease with mild ascites and hepatic enlargement. Silvino Jordan MD Chest CT 06/21/16 0000 Signed Impressions: Service Date/Time: Tuesday, June 21, 2016 21:50 - CONCLUSION: Widespread areas of consolidation involving the lower lobes bilaterally and the upper lobes bilaterally. This is nonspecific. It could be infectious. There are moderate bilateral pleural effusions and mild ascites. Qasim Phillips MD Abdomen Ultrasound 06/17/16 0000 Signed Impressions: Service Date/Time: Friday, June 17, 2016 10:00 - CONCLUSION: There is not enough fluid for safe paracentesis.. Harish Chaudhary MD FACR Thoracentesis Ultrasound 06/16/16 0000 Signed Impressions: Service Date/Time: May 14:13 - CONCLUSION: Uncomplicated ultrasound guided thoracentesis. Qasim Osuna MD Abdomen/Pelvis CT 06/10/16 0651 Signed Impressions: Service Date/Time: Friday, June 10, 2016 07:22 - CONCLUSION: 1. Enlarged fatty liver. 2. Mild splenomegaly. 3. Small to moderate amount of ascites within the abdomen and pelvis. 4. Small right pleural effusion. 5. Small hiatal hernia. 6. Cholelithiasis. Juan Leblanc MD Hepatobiliary Scan Nuclear Medicine 06/10/16 0000 Signed Impressions: Service Date/Time: Friday, June 10, 2016 12:50 - CONCLUSION: 1. Scintigraphic findings suggesting hepatocellular dysfunction with sluggish washout and persistent background activity. 2. Due to limited excretion, it is difficult to identify the extrahepatic biliary tree. However, activity is seen in the small bowel by 10 minutes. 3. No scintigraphic findings of acute cholecystitis. Bob Lara MD Cholangiopancreatography MRI 06/10/16 0000 Signed Impressions: Service Date/Time: Friday, June 10, 2016 12:25 - CONCLUSION: 1. Hepatosplenomegaly with significantly and inhomogeneously fatty infiltrated liver. 2. Slight ascites and bilateral pleural effusions. 3. Cholelithiasis and pericholecystic fluid and cholecystitis is not excluded. Mert Laurent MD Objective Remarks GENERAL: 31-year-old female, critically ill currently resting in bed on nasal cannula SKIN: Warm and dry. No rash HEAD: Atraumatic. Normocephalic. EYES: Pupils equal and round about 2-3 mm bilaterally and reactive. No scleral icterus. No injection or drainage. ENT: No nasal bleeding or discharge. Mucous membranes pink and moist. NECK: Trachea midline. No JVD. CARDIOVASCULAR: RRR. S1, S2 no S4. Currently without murmur, clicks, gallops or rubs RESPIRATORY: Coarse crackles appreciated throughout lung dean. Diminished at bases. No wheeze GASTROINTESTINAL: Abdomen soft, mild tenderness to deep palpation, somewhat protuberant. Hypoactive bowel sounds appreciated MUSCULOSKELETAL: Extremities with 1 plus pitting lower extremity edema. No obvious deformities. NEUROLOGICAL: Awake and alert. No obvious cranial nerve deficits. Motor grossly within normal limits. Five out of 5 muscle strength in the arms and legs. Normal speech. PSYCHIATRIC: Appropriate mood and affect; insight and judgment normal. Procedures 06/16- thoracentesis 500 cc out- transudate A/P Assessment and Plan Neuro/Psych: EtOH Continue thiamine folate and multivitamin daily for EtOH use Ativan 0.5 every 8 hours when necessary anxiety [place] for pain Morphine PRN for breakthrough pain. CV: Monitor HR and BP keep MAP>65mmHg. On Lopressor 12.5mg BID for rate control. Echo showed EF 50-55%, no regional wall motion abnormality Resp: Acute hypoxemic respiratory failure Continue with oxygen keep sat >92% currently on 4 L Bronchodilators ( DuoNeb every 6 hours, Pulmicort twice a day) NIPPV for resp distress CXR 06/29 showed worsening b/l pulm infiltrates, especially left upper lobe 06/26 CTA chest : No PE, Worsening bilateral dense air space consolidation in both lungs. Diffuse liver disease with mild ascites and hepatic enlargement Status post thoracentesis 800 cc transudative right side 06/16 - Continue Solumedrol 40 mg IV Q12 Follow-up Doppler bilateral lower extremity edema GI: Cholelithiasis Abdominal ascites Elevated transaminases Elevated bilirubin Elevated anti-1 antitrypsin 06/10 - MRCP - hepatosplenomegaly. - Ascites - cannot rule out cholecystitis 06/10 - HIDA scan - negative for cholecystitis Seen by gastroenterology. Negative hepatitis, AMA, ASMA, AMA and ceruloplasmin. Had signed off Currently on regular diet Hepatitis profile negative Continue pentoxifylline 400 mg by mouth 3 times a day 06/30 - therapeutic paracentesis -1800 cc /FEN: Monitor renal function, I/O's, electrolytes replacement per protocol. Endo: Sliding scale insulin for glycemic control Heme: Leukocytosis Macrocytic anemia Monitor CBC ID: Continue with abx (Rocephin) ID is following BC from 06/26-NGTD, 06/28 negative sputum and urine cxs. Monitor for signs of infections ( Fever, WBC) 06/24 sputum cx, strep pneumonia and Legionella urinary Ag all negative MSK: PT evaluate and treat Currently on Os-Zac twice a day Access - Utilize peripheral IV. Prophylaxis - GI - Protonix - DVT - SCD/ Level 2 Patient is stable from a critical care medicine standpoint we'll assign care to hospitalist in a.m. 07/02 Wang Jacobs MD July 01, 2016 17:14
--- NOTE | 2016-07-01 18:10 | HHI.PR ---
Subjective Remarks 06/26 Patient is off BIPAP. Weaned to4 LNC . Afebrile. Feels abd getting bigger Breathing better Objective Vital Signs Vital Signs Date Time Temp Pulse Resp B/P Pulse Ox O2 Delivery O2 Flow Rate FiO2 07/01/16 16:00 97.4 104 18 119/69 93 07/01/16 14:00 101 07/01/16 13:16 18 07/01/16 12:00 97 Nasal Cannula 7.00 50 07/01/16 12:00 109 07/01/16 12:00 98.2 104 20 119/71 94 07/01/16 10:00 101 07/01/16 09:20 18 07/01/16 08:00 94 Nasal Cannula 7.00 50 07/01/16 08:00 109 07/01/16 08:00 98.0 100 18 105/59 95 07/01/16 07:52 93 Nasal Cannula 5.00 07/01/16 06:00 101 07/01/16 04:00 109 07/01/16 04:00 98.2 109 20 120/78 94 07/01/16 04:00 94 Nasal Cannula 7.00 50 07/01/16 02:00 103 07/01/16 00:00 104 07/01/16 00:00 94 Nasal Cannula 7.00 50 07/01/16 00:00 98.2 104 20 117/65 94 06/30/16 22:03 95 Nasal Cannula 5.00 06/30/16 22:00 105 06/30/16 20:00 88 Nasal Cannula 7.00 50 06/30/16 20:00 122 06/30/16 20:00 97.9 122 16 117/64 88 I/O 06/30/16 06/30/16 06/30/16 07/01/16 07/01/16 07/01/16 07:00 15:00 23:00 07:00 15:00 23:00 Intake Total 529 ml 340 ml 500 ml 340 ml Output Total 200 ml 600 ml Balance 329 ml -260 ml 500 ml 340 ml Intake Oral 240 ml 200 ml 500 ml 240 ml IV Total 289 ml 140 ml 100 ml Output Urine Total 200 ml 600 ml # Voids 5 3 4 # Bowel Movements 0 1 1 2 Result Diagram: 07/01/1660207/01/16602 Objective Remarks GENERAL: Patient is 31 yo on partial rebreather SKIN: Warm and dry. HEAD: Normocephalic. EYES: No scleral icterus. No injection or drainage. NECK: Supple, trachea midline. No JVD or lymphadenopathy. CARDIOVASCULAR: Tachycardic without murmurs, gallops, or rubs. RESPIRATORY: Breath sounds equal bilaterally. Few coarse BS GASTROINTESTINAL: Abdomen soft, non-tender, nondistended. MUSCULOSKELETAL: No cyanosis, or edema. Neuro: Awake and alert A/P Assessment and Plan Resp Insuff Pneumonia Pleural effusion, s/p Thoracentesis Leukocytosis Anemia Alcohlic hepatitis ETOH use Nicotine use PLAN: Supplement 02 with NC 5Lit Continue with oxygen keep sat >92% Bronchodilators, IS CXR from 06/25: Mild increased opacity in left perihilar region with improved opacity in the right upper lobe. Small right effusion. Currently on Pulmicort twice a day/DuoNeb Status post thoracentesis 800 cc transudative right side 06/16 - Continue with abx (Zosyn), Monitor for signs of infections strep pneumonia and legionella urinary ag negative. Sputum cx 06/24: normal resp arianna. GI/DVT prophylaxis Decrease Fluid intake. Tomi Mckeon MD July 01, 2016 18:10
[2016-07-02] VITALS (8 sets, daily range): BP systolic 112–127; BP diastolic 60–77; PULSE 96–105; RESP 18–20; TEMP 97.6–98.7; O2SAT 92–97
[2016-07-02] MEDS: RESP: ALBUTEROL 2.5 MG/IPRATROPIUM 0.5 MG NEB (SCH) NEB ×4 (03:12→21:06)
[2016-07-02] MEDS: PENTOXIFYLLINE 400 MG CONTROLLED RELEASE TAB PO SCH ×3 (03:35→20:10)
[2016-07-02] MEDS: MORPHINE SULFATE 4 MG/ML INJ IV PUSH PRN ×4 (03:35→22:25)
[2016-07-02] MEDS: INSULIN NovoLIN REGULAR SUPPLEMENTAL SCALE SQ SCH ×4 (03:51→21:29)
[2016-07-02] MEDS: ACETAMINOPHEN/HYDROcodone 325 MG/5 MG TAB PO PRN ×3 (03:57→20:11)
[2016-07-02 07:42] LABS: AUTOMATED NEUTROPHIL # 22.9 TH/MM3 (1.8-7.7); BASOPHIL # 0.3 TH/MM3 (0-0.2); BASOPHIL % 1.3 % (0.0-2.0); HEMATOCRIT 27.7 % (35.0-46.0); LYMPH % 2.2 % (9.0-44.0); LYMPHOCYTE # 0.5 TH/MM3 (1.0-4.8); MEAN CELL VOLUME 101.6 FL (80.0-100.0); MEAN CORPUSCULAR HEMOGLOBIN 33.4 PG (27.0-34.0); MEAN CORPUSCULAR HGB CONC 32.9 % (32.0-36.0); MONO % 4.3 % (0.0-8.0); NEUT % 92.2 % (16.0-70.0); PLATELET COUNT 144 TH/MM3 (150-450); RED BLOOD COUNT 2.73 MIL/MM3 (4.00-5.30); RED CELL DISTRIBUTION WIDTH 15.8 % (11.6-17.2); WHITE BLOOD COUNT 24.8 TH/MM3 (4.0-11.0)
[2016-07-02 07:52] LABS: HEMO FLAGS AUTO DIFF
[2016-07-02 08:16] LABS: ALKALINE PHOSPHATASE 156 U/L (45-117); ALT (GPT) 95 U/L (10-53); ANION GAP 9 MEQ/L (5-15); AST (GOT) 120 U/L (15-37); BICARBONATE 30.2 MEQ/L (21.0-32.0); BLOOD UREA NITROGEN 11 MG/DL (7-18); CHLORIDE 98 MEQ/L (98-107); GLOMERULAR FILTRATION RATE 195 ML/MIN (>89); MAGNESIUM 1.7 MG/DL (1.5-2.5); POTASSIUM 3.9 MEQ/L (3.5-5.1); SODIUM (NA) 137 MEQ/L (136-145); TOTAL BILIRUBIN ADULT 2.3 MG/DL (0.2-1.0)
[2016-07-02] MEDS: RESP: BUDESONIDE 0.5 MG/2 ML NEB NEB SCH ×2 (09:01→20:00)
[2016-07-02] MEDS: ONDANSETRON HCL 4 MG/2 ML VIAL IV PUSH PRN (09:02)
[2016-07-02] MEDS: methylPREDNISolone SOD SUCC 40 MG/1 ML VIAL IV PUSH SCH (09:03)
[2016-07-02] MEDS: HEPARIN SODIUM - SQ 10,000 UNITS/ML VIAL SQ SCH ×2 (09:03→20:44)
[2016-07-02] MEDS: METOPROLOL TARTRATE 25 MG TAB PO SCH ×2 (09:05→20:09)
[2016-07-02] MEDS: CALCIUM CARBONATE 1.25 GM (CA 500 MG) TAB PO SCH ×2 (09:05→20:10)
[2016-07-02] MEDS: THIAMINE HCL 100 MG TAB PO SCH (09:05)
[2016-07-02] MEDS: MULTIVITAMIN TAB PO SCH (09:05)
[2016-07-02] MEDS: CEFUROXIME AXETIL 500 MG TAB PO SCH ×2 (09:05→20:10)
[2016-07-02] MEDS: RIFAXIMIN 550 MG TAB PO SCH ×2 (09:05→20:10)
[2016-07-02] MEDS: PANTOPRAZOLE SOD 40 MG DELAYED RELEASE TAB PO SCH (09:05)
[2016-07-02] MEDS: FOLIC ACID 1 MG TAB PO SCH (09:05)
[2016-07-02] MEDS: SODIUM CHLORIDE 0.9% FLUSH 10 ML FLUSH IV FLUSH SCH ×2 (09:06→20:13)
[2016-07-02] MEDS: HYDROCORTISONE 1% CREAM 30 GM TOPICAL SCH (09:06)
[2016-07-02 10:01] LABS: PLATELET ESTIMATE SMEAR LOW (NORMAL); PLATELET MORPHOLOGY ENLARGED (NORMAL); SCAN/DIFF AUTO DIFF CONFIRMED
--- NOTE | 2016-07-02 10:24 | RADRPT ---
EXAM DATE/TIME: 07/02/2016 09:05 [facility] COMPARISON: No previous studies available for comparison. INDICATIONS : Bilateral leg edema. MEDICAL HISTORY : Pruritis. Anxiety. Ascites. SURGICAL HISTORY : Right knee repair. ENCOUNTER: Initial ACUITY: 2 day PAIN SCORE: 10/10 LOCATION: Bilateral leg. TECHNIQUE: Venous ultrasound of the left and right leg was performed from the inguinal ligament to the proximal calf. Real-time, color Doppler and spectral tracing, compression and augmentation techniques were us ed. FINDINGS: RIGHT LEG: There is normal compressibility of the deep venous system from the inguinal region to the proximal ca lf. No echogenic clot is seen in the lumen of the common femoral, femoral, popliteal, and posterior tibial veins. There is a normal response of the venous system to proximal and distal augmentation an d respiration. LEFT LEG: There is normal compressibility of the deep venous system from the inguinal region to the proximal ca lf. No echogenic clot is seen in the lumen of the common femoral, femoral, popliteal, and posterior tibial veins. There is a normal response of the venous system to proximal and distal augmentation an d respiration. CONCLUSION: No deep venous thrombosis in either lower extremity. Garret Verma MD on July 02, 2016 at 10:20 Board Certified Radiologist. This report was verified electronically.
[2016-07-02] MEDS: LORazepam 0.5 MG TAB PO PRN ×2 (13:38→22:24)
--- NOTE | 2016-07-02 16:19 | HHI.PR ---
Subjective Remarks She is in the bed, appears chronically in a young female. Says she has some abdominal pain, improved medications. Denies vomiting. She was nauseated in the morning. Has decreased appetite, however she is eating some and able to keep down. No fever or chills overnight Objective Vitals Vital Signs Date Time Temp Pulse Resp B/P Pulse Ox O2 Delivery O2 Flow Rate FiO2 07/02/16 15:36 97 21 07/02/16 14:02 Room Air 07/02/16 12:00 98.7 101 20 112/60 92 07/02/16 09:19 93 Room Air 07/02/16 09:04 93 07/02/16 08:00 98.0 105 18 127/77 95 07/02/16 05:29 16 07/02/16 04:00 98.0 96 19 114/73 94 07/02/16 03:59 16 07/02/16 00:00 98.3 105 18 124/71 93 07/01/16 20:15 Nasal Cannula 3.00 07/01/16 20:00 97.9 113 19 133/82 94 I/O 07/01/16 07/01/16 07/01/16 07/02/16 07/02/16 07/02/16 06:59 14:59 22:59 06:59 14:59 22:59 Intake Total 500 ml 340 ml 480 ml 480 ml Output Total 450 ml Balance 500 ml 340 ml 480 ml 30 ml Intake Oral 500 ml 240 ml 480 ml 480 ml IV Total 100 ml Output Urine Total 450 ml # Voids 3 4 3 # Bowel Movements 1 2 1 1 Result Diagram: 07/02/16 0645 07/02/16 0704 Imaging Last Impressions Lower Extremity Ultrasound 07/02/16 0000 Signed Impressions: Service Date/Time: Saturday, July 02, 2016 09:05 - CONCLUSION: No deep venous thrombosis in either lower extremity. Garret Verma MD Cyst Biopsy Asp-Paracentesis US 06/30/16 0000 Signed Impressions: Service Date/Time: June 10:55 - CONCLUSION: Uncomplicated ultrasound guided paracentesis. Garret Verma MD Chest X-Ray 06/30/16 0000 Signed Impressions: Service Date/Time: June 15:27 - CONCLUSION: 1. Bilateral airspace consolidation, left greater than right similar to June 29. No new findings. Silvino Jordan MD CT Angiography 06/26/16 Signed Impressions: Service Date/Time: Sunday, June 26, 2016 15:16 - CONCLUSION: 1. Negative for pulmonary embolus. 2. Worsening bilateral dense air space consolidation in both lungs. 3. Relatively stable bilateral pleural effusions, right greater than left. 4. Diffuse liver disease with mild ascites and hepatic enlargement. Silvino Jordan MD Chest CT 06/21/16 Signed Impressions: Service Date/Time: Tuesday, June 21, 2016 21:50 - CONCLUSION: Widespread areas of consolidation involving the lower lobes bilaterally and the upper lobes bilaterally. This is nonspecific. It could be infectious. There are moderate bilateral pleural effusions and mild ascites. Qasim Phillips MD Abdomen Ultrasound 06/17/16 0000 Signed Impressions: Service Date/Time: Friday, June 17, 2016 10:00 - CONCLUSION: There is not enough fluid for safe paracentesis.. Harish Chaudhary MD FACR Thoracentesis Ultrasound 06/16/16 0000 Signed Impressions: Service Date/Time: May 14:13 - CONCLUSION: Uncomplicated ultrasound guided thoracentesis. Qsaim Osuna MD Abdomen/Pelvis CT 06/10/16 0651 Signed Impressions: Service Date/Time: Friday, June 10, 2016 07:22 - CONCLUSION: 1. Enlarged fatty liver. 2. Mild splenomegaly. 3. Small to moderate amount of ascites within the abdomen and pelvis. 4. Small right pleural effusion. 5. Small hiatal hernia. 6. Cholelithiasis. Juan Leblanc MD Hepatobiliary Scan Nuclear Medicine 06/10/16 0000 Signed Impressions: Service Date/Time: Friday, June 10, 2016 12:50 - CONCLUSION: 1. Scintigraphic findings suggesting hepatocellular dysfunction with sluggish washout and persistent background activity. 2. Due to limited excretion, it is difficult to identify the extrahepatic biliary tree. However, activity is seen in the small bowel by 10 minutes. 3. No scintigraphic findings of acute cholecystitis. Bob Lara MD Cholangiopancreatography MRI 06/10/16 0000 Signed Impressions: Service Date/Time: Friday, June 10, 2016 12:25 - CONCLUSION: 1. Hepatosplenomegaly with significantly and inhomogeneously fatty infiltrated liver. 2. Slight ascites and bilateral pleural effusions. 3. Cholelithiasis and pericholecystic fluid and cholecystitis is not excluded. Mert Laurent MD Objective Remarks GENERAL: 31-year-old female, critically ill currently resting in bed on nasal cannula SKIN: Warm and dry. No rash HEAD: Atraumatic. Normocephalic. EYES: Pupils equal and round about 2-3 mm bilaterally and reactive. No scleral icterus. No injection or drainage. ENT: No nasal bleeding or discharge. Mucous membranes pink and moist. NECK: Trachea midline. No JVD. CARDIOVASCULAR: RRR. S1, S2 no S4. Currently without murmur, clicks, gallops or rubs RESPIRATORY: Coarse crackles appreciated throughout lung dean. Diminished at bases. No wheeze GASTROINTESTINAL: Abdomen soft, mild tenderness to deep palpation, somewhat protuberant. Hypoactive bowel sounds appreciated MUSCULOSKELETAL: Extremities with 1 plus pitting lower extremity edema. No obvious deformities. NEUROLOGICAL: Awake and alert. No obvious cranial nerve deficits. Motor grossly within normal limits. Five out of 5 muscle strength in the arms and legs. Normal speech. PSYCHIATRIC: Appropriate mood and affect; insight and judgment normal. Procedures 06/16- thoracentesis 500 cc out- transudate A/P Problem List: (1) Ascites ICD Code: R18.8 Status: Acute (2) Pleural effusion ICD Code: J90 Status: Acute (3) Sepsis ICD Code: A41.9 Status: Acute (4) Hyperbilirubinemia ICD Code: E80.6 Status: Acute (5) Pneumonia ICD Code: J18.9 Status: Acute Assessment and Plan Neuro/Psych: EtOH Continue thiamine folate and multivitamin daily for EtOH use Ativan 0.5 every 8 hours when necessary anxiety [place] for pain Morphine PRN for breakthrough pain. CV: Monitor HR and BP keep MAP>65mmHg. On Lopressor 12.5mg BID for rate control. Echo showed EF 50-55%, no regional wall motion abnormality Resp: Acute hypoxemic respiratory failure Continue with oxygen keep sat >92% currently on 4 L Bronchodilators ( DuoNeb every 6 hours, Pulmicort twice a day) NIPPV for resp distress CXR 06/29 showed worsening b/l pulm infiltrates, especially left upper lobe 06/26 CTA chest : No PE, Worsening bilateral dense air space consolidation in both lungs. Diffuse liver disease with mild ascites and hepatic enlargement Status post thoracentesis 800 cc transudative right side 06/16 - Continue Solumedrol 40 mg IV Q12 Follow-up Doppler bilateral lower extremity edema GI: Cholelithiasis Abdominal ascites Elevated transaminases Elevated bilirubin Elevated anti-1 antitrypsin 06/10 - MRCP - hepatosplenomegaly. - Ascites - cannot rule out cholecystitis 06/10 - HIDA scan - negative for cholecystitis Seen by gastroenterology. Negative hepatitis, AMA, ASMA, AMA and ceruloplasmin. Had signed off Currently on regular diet Hepatitis profile negative Continue pentoxifylline 400 mg by mouth 3 times a day 06/30 - therapeutic paracentesis -1800 cc /FEN: Monitor renal function, I/O's, electrolytes replacement per protocol. Endo: Sliding scale insulin for glycemic control Heme: Leukocytosis Macrocytic anemia Monitor CBC ID: Continue with abx (Rocephin) ID is following BC from 06/26-NGTD, 06/28 negative sputum and urine cxs. Monitor for signs of infections ( Fever, WBC) 06/24 sputum cx, strep pneumonia and Legionella urinary Ag all negative MSK: PT evaluate and treat Currently on Os-Zac twice a day Access - Utilize peripheral IV. Prophylaxis - GI - Protonix - DVT - SCD Discussed with the patient. She had multiple motions, all questions answered to the best of my ability. Discussed with the nurse. Problem Qualifiers (1) Ascites: Qualified Code: R18.8 - Other ascites (2) Sepsis: Qualified Code: A41.9 - Sepsis, due to unspecified organism Nerissa Sykes MD July 02, 2016 16:19
[2016-07-03] VITALS (7 sets, daily range): BP systolic 111–122; BP diastolic 65–81; PULSE 105–119; RESP 16–19; TEMP 96.7–98.7; O2SAT 92–97
[2016-07-03] MEDS: MORPHINE SULFATE 4 MG/ML INJ IV PUSH PRN ×3 (03:13→18:32)
[2016-07-03] MEDS: RESP: ALBUTEROL 2.5 MG/IPRATROPIUM 0.5 MG NEB (SCH) NEB ×3 (03:32→15:35)
[2016-07-03] MEDS: INSULIN NovoLIN REGULAR SUPPLEMENTAL SCALE SQ SCH ×4 (06:25→20:46)
[2016-07-03] MEDS: PENTOXIFYLLINE 400 MG CONTROLLED RELEASE TAB PO SCH ×3 (06:26→21:00)
[2016-07-03] MEDS ORDERED: IPRA17I INH (08:12)
[2016-07-03] MEDS ORDERED: LORA-392 PO (08:12)
[2016-07-03] MEDS ORDERED: METO25TA3 PO (08:12)
[2016-07-03] MEDS ORDERED: VENTAER INH (08:12)
[2016-07-03] MEDS ORDERED: FOLI1TAB4 PO (08:12)
[2016-07-03] MEDS ORDERED: OXYC-392 PO (08:12)
[2016-07-03] MEDS ORDERED: PENT400T PO (08:12)
[2016-07-03] MEDS ORDERED: VITA100T2 PO (08:12)
[2016-07-03] MEDS ORDERED: OYST500T11 PO (08:12)
[2016-07-03] MEDS ORDERED: XIFA550T4 PO (08:12)
[2016-07-03] MEDS ORDERED: PANT40TA3 PO (08:12)
[2016-07-03] MEDS ORDERED: FLUT100A INH (08:12)
[2016-07-03] MEDS ORDERED: CEFT500T3 PO (08:12)
--- NOTE | 2016-07-03 08:12 | HHI.DS ---
Discharge Summary Admission Date Jun 10, 2016 at 09:04 Discharge Date: July 03, 2016 Admitting Diagnosis hypokalemia, hyperbilirubinemia, vomiting (1) Ascites ICD Code: R18.8 Diagnosis: Principal (2) Pleural effusion ICD Code: J90 Diagnosis: Principal (3) Sepsis ICD Code: A41.9 Diagnosis: Principal (4) Hyperbilirubinemia ICD Code: E80.6 Diagnosis: Principal (5) Pneumonia ICD Code: J18.9 Diagnosis: Principal Procedures 06/16- thoracentesis 500 cc out- transudate Brief History - From Admission the patient is a 31-year-old female without significant past medical history who presented to [facility] ED for evaluation of a rash, cough, and worsening shortness of breath. Per records, the patient had several flea biters and then she subsequently developed a diffuse pruritic rash. She tried Calamine lotion, Benadryl and Tylenol without any significant relief. In addition, she reports abdominal pain where she described it as a tightness like in nature, decreased p.o. intake and several episodes of nonbloody emesis. She states that she feels cold all the time and denies having any fever or constitutional symptoms. She denies any melena or hematochezia. The patient is an active drinker where she drinks a pint of vodka on a daily basis. She has been doing this for the past three to four years. She denies any history of liver disease. On arrival to the ER, she had a low grade fever with temperature of 99.7, tachycardiac with heart rate of 120 to 130s. Her laboratory data is significant for lactic acidosis with a lactic acid level 4.6 which trended down to 3.7 with fluid resuscitation. Other significant labs showed elevated AST of 176 with hyperbilirubinemia. Her total bilirubin level measured at 7.2 and alkaline phosphatase of 344. Also, the patient was hypokalemic with a potassium level of 2.4 and had leukocytosis with a WBC of 18.4. Her alcohol level elevated at 19. Due to her abdominal pain, a CT scan of the abdomen and pelvis obtained which showed enlarged fatty liver, mild splenomegaly, small to moderate ascites, cholelithiasis and small hiatal hernia. In the ER, she was given approximately three liters of crystalloids, Zosyn and potassium replacement. The patient was seen by GI service in the ER and scheduled to undergo a HIDA scan and MRCP. She is on room air oxygen. The patient denies any chest pain, shortness of breath or edema of the lower extremities. CBC/BMP: 07/02/16 0645 07/02/16 0704 Significant Findings Laboratory Tests Test 07/01/16 07/02/16 07/02/16 06:03 06:45 07:04 White Blood Count 24.2 TH/MM3 24.8 TH/MM3 (4.0-11.0) (4.0-11.0) Red Blood Count 2.87 MIL/MM3 2.73 MIL/MM3 (4.00-5.30) (4.00-5.30) Hemoglobin 9.4 GM/DL 9.1 GM/DL (11.6-15.3) (11.6-15.3) Hematocrit 29.6 % 27.7 % (35.0-46.0) (35.0-46.0) Mean Corpuscular Volume 103.1 FL 101.6 FL (80.0-100.0) (80.0-100.0) Mean Corpuscular Hemoglobin 31.7 % Concent (32.0-36.0) Neutrophils (%) (Auto) 91.7 % 92.2 % (16.0-70.0) (16.0-70.0) Lymphocytes (%) (Auto) 2.2 % 2.2 % (9.0-44.0) (9.0-44.0) Neutrophils # (Auto) 22.1 TH/MM3 22.9 TH/MM3 (1.8-7.7) (1.8-7.7) Lymphocytes # (Auto) 0.5 TH/MM3 0.5 TH/MM3 (1.0-4.8) (1.0-4.8) Monocytes # (Auto) 1.4 TH/MM3 1.1 TH/MM3 (0-0.9) (0-0.9) Random Glucose 166 MG/DL 146 MG/DL (74-106) (74-106) Calcium Level 8.4 MG/DL 8.1 MG/DL (8.5-10.1) (8.5-10.1) Phosphorus Level 2.3 MG/DL (2.5-4.9) Total Bilirubin 2.3 MG/DL 2.3 MG/DL (0.2-1.0) (0.2-1.0) Aspartate Amino Transf 129 U/L (15-37) 120 U/L (15-37) (AST/SGOT) Alanine Aminotransferase 90 U/L (10-53) 95 U/L (10-53) (ALT/SGPT) Alkaline Phosphatase 157 U/L 156 U/L (45-117) (45-117) Total Protein 5.7 GM/DL 5.2 GM/DL (6.4-8.2) (6.4-8.2) Albumin 2.3 GM/DL 2.2 GM/DL (3.4-5.0) (3.4-5.0) Platelet Count 144 TH/MM3 (150-450) Mean Platelet Volume 11.1 FL (7.0-11.0) Basophils # (Auto) 0.3 TH/MM3 (0-0.2) Platelet Estimate LOW (NORMAL) Platelet Morphology Comment ENLARGED (NORMAL) Creatinine 0.38 MG/DL (0.50-1.00) Imaging Last Impressions Chest X-Ray 07/05/16 0000 Signed Impressions: Service Date/Time: Tuesday, July 05, 2016 09:23 - CONCLUSION: 1. Diffuse bilateral infiltrates and bibasilar fusions stable compared to previous exam. Michele Chaudhary MD Lower Extremity Ultrasound 07/02/16 0000 Signed Impressions: Service Date/Time: Saturday, July 02, 2016 09:05 - CONCLUSION: No deep venous thrombosis in either lower extremity. Garret Verma MD Cyst Biopsy Asp-Paracentesis US 06/30/16 0000 Signed Impressions: Service Date/Time: June 10:55 - CONCLUSION: Uncomplicated ultrasound guided paracentesis. Garret Verma MD CT Angiography 06/26/16 0000 Signed Impressions: Service Date/Time: Sunday, June 26, 2016 15:16 - CONCLUSION: 1. Negative for pulmonary embolus. 2. Worsening bilateral dense air space consolidation in both lungs. 3. Relatively stable bilateral pleural effusions, right greater than left. 4. Diffuse liver disease with mild ascites and hepatic enlargement. Silvino Jordan MD Chest CT 06/21/16 Signed Impressions: Service Date/Time: Tuesday, June 21, 2016 21:50 - CONCLUSION: Widespread areas of consolidation involving the lower lobes bilaterally and the upper lobes bilaterally. This is nonspecific. It could be infectious. There are moderate bilateral pleural effusions and mild ascites. Qasim Phillips MD Abdomen Ultrasound 06/17/16 Signed Impressions: Service Date/Time: Friday, June 17, 2016 10:00 - CONCLUSION: There is not enough fluid for safe paracentesis.. Harish Chaudhary MD FACR Thoracentesis Ultrasound 06/16/16 Signed Impressions: Service Date/Time: May 14:13 - CONCLUSION: Uncomplicated ultrasound guided thoracentesis. Qasim Osuna MD Abdomen/Pelvis CT 06/10/16 0651 Signed Impressions: Service Date/Time: Friday, June 10, 2016 07:22 - CONCLUSION: 1. Enlarged fatty liver. 2. Mild splenomegaly. 3. Small to moderate amount of ascites within the abdomen and pelvis. 4. Small right pleural effusion. 5. Small hiatal hernia. 6. Cholelithiasis. Juan Leblanc MD Hepatobiliary Scan Nuclear Medicine 06/10/16 Signed Impressions: Service Date/Time: Friday, June 10, 2016 12:50 - CONCLUSION: 1. Scintigraphic findings suggesting hepatocellular dysfunction with sluggish washout and persistent background activity. 2. Due to limited excretion, it is difficult to identify the extrahepatic biliary tree. However, activity is seen in the small bowel by 10 minutes. 3. No scintigraphic findings of acute cholecystitis. Bob Lara MD Cholangiopancreatography MRI 06/10/16 0000 Signed Impressions: Service Date/Time: Friday, June 10, 2016 12:25 - CONCLUSION: 1. Hepatosplenomegaly with significantly and inhomogeneously fatty infiltrated liver. 2. Slight ascites and bilateral pleural effusions. 3. Cholelithiasis and pericholecystic fluid and cholecystitis is not excluded. Mert Laurent MD PE at Discharge GENERAL: 31-year-old female, critically ill currently resting in bed on nasal cannula SKIN: Warm and dry. No rash HEAD: Atraumatic. Normocephalic. EYES: Pupils equal and round about 2-3 mm bilaterally and reactive. No scleral icterus. No injection or drainage. ENT: No nasal bleeding or discharge. Mucous membranes pink and moist. NECK: Trachea midline. No JVD. CARDIOVASCULAR: RRR. S1, S2 no S4. Currently without murmur, clicks, gallops or rubs RESPIRATORY: Coarse crackles appreciated throughout lung dean. Diminished at bases. No wheeze GASTROINTESTINAL: Abdomen soft, mild tenderness to deep palpation, somewhat protuberant. Hypoactive bowel sounds appreciated MUSCULOSKELETAL: Extremities with 1 plus pitting lower extremity edema. No obvious deformities. NEUROLOGICAL: Awake and alert. No obvious cranial nerve deficits. Motor grossly within normal limits. Five out of 5 muscle strength in the arms and legs. Normal speech. PSYCHIATRIC: Appropriate mood and affect; insight and judgment normal. Transfer Summary 31-year-old female. Data admission June 10, 2016. ICU for several days secondary to acute hypoxic respiratory failure secondary to pneumonia. Negative imaging. Negative microbiology studies. Currently down to 4 L nasal cannula Pt update on day of discharge Patient is satting well on 2L NC. Says she was able to ambuulate yesterday with PT in the [place];lways. Says she is feeling much better now. Less sob and cough. No n/v/d/c. Was eating well yesterday. No fever or chills. No n/v/d/c. Feels comfortable to go home and follow up a s OP with PCP and consultants Hospital Course Neuro/Psych: EtOH Continue thiamine folate and multivitamin daily for EtOH use Ativan 0.5 every 8 hours when necessary anxiety [place] for pain Morphine PRN for breakthrough pain. CV: Monitor HR and BP keep MAP>65mmHg. On Lopressor 12.5mg BID for rate control. Echo showed EF 50-55%, no regional wall motion abnormality Resp: Acute hypoxemic respiratory failure Continue with oxygen keep sat >92% currently on 4 L Bronchodilators ( DuoNeb every 6 hours, Pulmicort twice a day) NIPPV for resp distress CXR 06/29 showed worsening b/l pulm infiltrates, especially left upper lobe 06/26 CTA chest : No PE, Worsening bilateral dense air space consolidation in both lungs. Diffuse liver disease with mild ascites and hepatic enlargement Status post thoracentesis 800 cc transudative right side 06/16 - Solumedrol 40 mg IV daily , taoered, continue to taper Patient with persistent leukocytosis 27 K today , Dr Rock notofied. Also with diarrhea will check for C diff. Start probiotic Follow-up Doppler bilateral lower extremity edema GI: Cholelithiasis Abdominal ascites Elevated transaminases Elevated bilirubin Elevated anti-1 antitrypsin Diarrhea. Check C diff. 06/10 - MRCP - hepatosplenomegaly. - Ascites - cannot rule out cholecystitis 06/10 - HIDA scan - negative for cholecystitis Seen by gastroenterology. Negative hepatitis, AMA, ASMA, AMA and ceruloplasmin. Had signed off Currently on regular diet Hepatitis profile negative Continue pentoxifylline 400 mg by mouth 3 times a day 06/30 - therapeutic paracentesis -1800 cc /FEN: Monitor renal function, I/O's, electrolytes replacement per protocol. Endo: Sliding scale insulin for glycemic control Heme: Leukocytosis Macrocytic anemia Monitor CBC ID: Continue with abx (Rocephin) ID is following BC from 06/26-NGTD, 06/28 negative sputum and urine cxs. Monitor for signs of infections ( Fever, WBC) 06/24 sputum cx, strep pneumonia and Legionella urinary Ag all negative MSK: PT evaluate and treat Currently on Os-Zac twice a day Access - Utilize peripheral IV. Prophylaxis - GI - Protonix - DVT - SCD Discharge plan: Will hold DC as patient with diarrhea and persistent leukocytosis dispite tapering down steroids. Failed O2 walking test . Needs O2 at home. CM to work on obtaining O2 at home Discussed with Dr Rock , who evaluated the patient, cleared the patient for DC. Pt Condition on Discharge: Stable Discharge Disposition: Disch w/ Home Health Serv Discharge Time: > 30 minutes Discharge Instructions DIET: Follow Instructions for: Heart Healthy Diet Activities you can perform: Regular-No Restrictions Follow up Referrals: Gastroenterology - 2 Weeks PCP Follow-up - 3-5 Days Pulmonology - 1 Week New Medications: Albuterol 18 GM Inh (Ventolin Hfa 18 GM Inh) 90 Mcg/Act Aer 2 PUFF INH Q4-6H PRN SHORTNESS OF BREATH #1 Ref 0 INHALER Fluticasone Powder Inh (Flovent Diskus Inh) 100 Mcg/Blist Aerp 100 MCG INH BID Shortness of Breath #1 INHALER Ipratropium HFA 12.9 GM Inh (Atrovent HFA 12.9 GM Inh) 17 Mcg/Act Aer 2 PUFF INH QID Shortness of Breath #1 Ref 0 INHALER Oxygen tank (Oxygen tank) 1 Ea Tank 2 LITER KEVAN.CANULA CONTINUOUS Oxygen Concentrator Portable Gaseous 2 L/min via Nasal Cannula Continuous For 99 months HYPOXEMIA PREVENTION #2 CYLINDER Walker Rolling/GetGo (Walker Rolling/GetGo) 1 Mis Mis 1 EA .ROUTE DIRECTED #1 EA Cefuroxime (Ceftin) 500 Mg Tab 500 MG PO Q12HR infection #12 TAB Folic Acid (Folate) 1 Mg Tab 1 MG PO DAILY mvt #30 TAB Lorazepam (Ativan) 0.5 Mg Tab 0.5 MG PO Q8HR PRN MODERATE TO SEVERE ANXIETY #10 TAB Metoprolol Tartrate (Metoprolol Tartrate) 25 Mg Tab 12.5 MG PO Q12HR Blood Pressure Management #60 TAB Oxycodone (Oxycodone) 5 Mg Tab 5 MG PO Q6H PRN PAIN 1 TO 10 AND/OR AGITATION #20 TAB Oyster Shell (Oyster Shell Calcium) 500 Mg Tab 500 MG PO BID hypocalcemia #30 TAB Pantoprazole (Pantoprazole) 40 Mg Tab 40 MG PO DAILY gerd #30 TAB Pentoxifylline ER (Pentoxifylline ER) 400 Mg Tab 400 MG PO Q8HR ascites #90 TAB Rifaximin (Xifaxan) 550 Mg Tab 550 MG PO BID ascites #60 TAB Thiamine (Vitamin B-1) 100 Mg Tab 100 MG PO DAILY mvt #30 TAB Nerissa Sykes MD July 03, 2016 08:12
--- NOTE | 2016-07-03 08:15 | HHI.FF ---
Face to Face Verification Diagnosis: (1) DTs (delirium tremens) (2) Vomiting (3) Hypokalemia (4) Ascites (5) Hyperbilirubinemia (6) Hyperbilirubinemia (7) Pleural effusion (8) Sepsis (9) Pneumonia Home Health Nursing Order: Medical education Signs/symptoms of disease process Medication education-adverse effect Nursing assessment with vital signs I have seen patient Jeannie Woo on 07/03/16. My clinical findings support the need for the requested home health care services because: Ltd mobility - disease progression Patient has SOB I certify that my clinical findings support that this patient is homebound because: Post-op weakness Nerissa Sykes MD July 03, 2016 08:15
[2016-07-03] MEDS: MULTIVITAMIN TAB PO SCH (08:17)
[2016-07-03] MEDS: METOPROLOL TARTRATE 25 MG TAB PO SCH ×2 (08:17→20:49)
[2016-07-03] MEDS: FOLIC ACID 1 MG TAB PO SCH (08:17)
[2016-07-03] MEDS: ACETAMINOPHEN/HYDROcodone 325 MG/5 MG TAB PO PRN (08:17)
[2016-07-03] MEDS: CALCIUM CARBONATE 1.25 GM (CA 500 MG) TAB PO SCH ×2 (08:17→20:51)
[2016-07-03] MEDS: RIFAXIMIN 550 MG TAB PO SCH ×2 (08:17→20:50)
[2016-07-03] MEDS: THIAMINE HCL 100 MG TAB PO SCH (08:17)
[2016-07-03] MEDS: CEFUROXIME AXETIL 500 MG TAB PO SCH ×2 (08:17→20:50)
[2016-07-03] MEDS: LORazepam 0.5 MG TAB PO PRN ×2 (08:17→20:57)
[2016-07-03] MEDS ORDERED: GETGO ROLLING W1 MI1 (08:17)
[2016-07-03] MEDS: methylPREDNISolone SOD SUCC 40 MG/1 ML VIAL IV PUSH SCH (08:17)
[2016-07-03] MEDS: PANTOPRAZOLE SOD 40 MG DELAYED RELEASE TAB PO SCH (08:17)
[2016-07-03] MEDS: HYDROCORTISONE 1% CREAM 30 GM TOPICAL SCH (08:18)
[2016-07-03] MEDS: SODIUM CHLORIDE 0.9% FLUSH 10 ML FLUSH IV FLUSH SCH ×2 (08:18→20:53)
[2016-07-03] MEDS: HEPARIN SODIUM - SQ 10,000 UNITS/ML VIAL SQ SCH ×2 (08:32→20:52)
[2016-07-03] MEDS: RESP: BUDESONIDE 0.5 MG/2 ML NEB NEB SCH ×2 (08:42→21:01)
[2016-07-03 09:33] LABS: AUTOMATED NEUTROPHIL # 23.6 TH/MM3 (1.8-7.7); BASOPHIL # 0.1 TH/MM3 (0-0.2); BASOPHIL % 0.5 % (0.0-2.0); EOSINOPHIL # 0.2 TH/MM3 (0-0.4); EOSINOPHIL % 0.6 % (0.0-4.0); HEMATOCRIT 28.8 % (35.0-46.0); LYMPH % 5.3 % (9.0-44.0); LYMPHOCYTE # 1.4 TH/MM3 (1.0-4.8); MEAN CELL VOLUME 102.6 FL (80.0-100.0); MEAN CORPUSCULAR HEMOGLOBIN 33.7 PG (27.0-34.0); MEAN CORPUSCULAR HGB CONC 32.9 % (32.0-36.0); MONO % 4.8 % (0.0-8.0); NEUT % 88.8 % (16.0-70.0); PLATELET COUNT 144 TH/MM3 (150-450); RED BLOOD COUNT 2.81 MIL/MM3 (4.00-5.30); RED CELL DISTRIBUTION WIDTH 16.1 % (11.6-17.2); WHITE BLOOD COUNT 26.6 TH/MM3 (4.0-11.0)
[2016-07-03 09:35] LABS: HEMO FLAGS AUTO DIFF
[2016-07-03 09:54] LABS: BICARBONATE 29.4 MEQ/L (21.0-32.0); MAGNESIUM 1.6 MG/DL (1.5-2.5); POTASSIUM 3.6 MEQ/L (3.5-5.1)
[2016-07-03 10:52] LABS: BANDS 11 % (0-6); EOSINOPHILS 1 % (0-4); NEUTROPHIL # MANUAL DIFF 23.7 TH/MM3 (1.8-7.7); POLYS (SEG NEUTROPHILS) 78 % (16-70); WBC DIFF SAMPLE 100
[2016-07-03 10:53] LABS: PLATELET ESTIMATE SMEAR LOW (NORMAL); PLATELET MORPHOLOGY NORMAL (NORMAL); SCAN/DIFF FINAL DIFF MANUAL
--- NOTE | 2016-07-03 16:16 | HHI.PR ---
Subjective Remarks Patient is satting well on 2L NC. Says she was able to ambuulate yesterday with PT in the [place];lways. Says she is feeling much better now. Less sob and cough. No n/v/d/c. Was eating well yesterday. No fever or chills. No n/v/d/c. Feels comfortable to go home and follow up a s OP with PCP and consultants Patient failed O2 walking test Objective Vitals Vital Signs Date Time Temp Pulse Resp B/P Pulse Ox O2 Delivery O2 Flow Rate FiO2 07/03/16 11:43 2.00 07/03/16 08:42 95 Nasal Cannula 2.00 07/03/16 08:15 94 Room Air 07/03/16 08:00 98.7 105 16 111/65 93 07/03/16 04:00 96.9 106 19 117/81 93 07/03/16 03:24 18 07/03/16 00:27 Nasal Cannula 2.00 07/03/16 00:00 96.7 119 18 122/77 92 07/02/16 21:11 18 07/02/16 20:10 Room Air 07/02/16 20:00 97.6 105 19 121/70 93 I/O 07/02/16 07/02/16 07/02/16 07/03/16 07/03/16 07/03/16 07:00 15:00 23:00 07:00 15:00 23:00 Intake Total 480 ml 1320 ml 480 ml Output Total 450 ml Balance 30 ml 1320 ml 480 ml Intake Oral 480 ml 1320 ml 480 ml Output Urine Total 450 ml # Voids 6 3 # Bowel Movements 1 2 2 Result Diagram: 07/03/16 0811 07/03/16 0811 Imaging Last Impressions Lower Extremity Ultrasound 07/02/16 0000 Signed Impressions: Service Date/Time: Saturday, July 02, 2016 09:05 - CONCLUSION: No deep venous thrombosis in either lower extremity. Garret Verma MD Cyst Biopsy Asp-Paracentesis US 06/30/16 0000 Signed Impressions: Service Date/Time: June 10:55 - CONCLUSION: Uncomplicated ultrasound guided paracentesis. Garret Verma MD Chest X-Ray 06/30/16 0000 Signed Impressions: Service Date/Time: June 15:27 - CONCLUSION: 1. Bilateral airspace consolidation, left greater than right similar to June 29. No new findings. Silvino Jordan MD CT Angiography 06/26/16 0000 Signed Impressions: Service Date/Time: Sunday, June 26, 2016 15:16 - CONCLUSION: 1. Negative for pulmonary embolus. 2. Worsening bilateral dense air space consolidation in both lungs. 3. Relatively stable bilateral pleural effusions, right greater than left. 4. Diffuse liver disease with mild ascites and hepatic enlargement. Silvino Jordan MD Chest CT 06/21/16 Signed Impressions: Service Date/Time: Tuesday, June 21, 2016 21:50 - CONCLUSION: Widespread areas of consolidation involving the lower lobes bilaterally and the upper lobes bilaterally. This is nonspecific. It could be infectious. There are moderate bilateral pleural effusions and mild ascites. Qasim Phillips MD Abdomen Ultrasound 06/17/16 0000 Signed Impressions: Service Date/Time: Friday, June 17, 2016 10:00 - CONCLUSION: There is not enough fluid for safe paracentesis.. Harish Chaudhary MD FACR Thoracentesis Ultrasound 06/16/16 0000 Signed Impressions: Service Date/Time: May 14:13 - CONCLUSION: Uncomplicated ultrasound guided thoracentesis. Qasim Osuna MD Abdomen/Pelvis CT 06/10/16 0651 Signed Impressions: Service Date/Time: Friday, June 10, 2016 07:22 - CONCLUSION: 1. Enlarged fatty liver. 2. Mild splenomegaly. 3. Small to moderate amount of ascites within the abdomen and pelvis. 4. Small right pleural effusion. 5. Small hiatal hernia. 6. Cholelithiasis. Juan Leblanc MD Hepatobiliary Scan Nuclear Medicine 06/10/16 0000 Signed Impressions: Service Date/Time: Friday, June 10, 2016 12:50 - CONCLUSION: 1. Scintigraphic findings suggesting hepatocellular dysfunction with sluggish washout and persistent background activity. 2. Due to limited excretion, it is difficult to identify the extrahepatic biliary tree. However, activity is seen in the small bowel by 10 minutes. 3. No scintigraphic findings of acute cholecystitis. Bob Lara MD Cholangiopancreatography MRI 06/10/16 0000 Signed Impressions: Service Date/Time: Friday, June 10, 2016 12:25 - CONCLUSION: 1. Hepatosplenomegaly with significantly and inhomogeneously fatty infiltrated liver. 2. Slight ascites and bilateral pleural effusions. 3. Cholelithiasis and pericholecystic fluid and cholecystitis is not excluded. Mert Laurent MD Objective Remarks GENERAL: 31-year-old female, critically ill currently resting in bed on nasal cannula SKIN: Warm and dry. No rash HEAD: Atraumatic. Normocephalic. EYES: Pupils equal and round about 2-3 mm bilaterally and reactive. No scleral icterus. No injection or drainage. ENT: No nasal bleeding or discharge. Mucous membranes pink and moist. NECK: Trachea midline. No JVD. CARDIOVASCULAR: RRR. S1, S2 no S4. Currently without murmur, clicks, gallops or rubs RESPIRATORY: Coarse crackles appreciated throughout lung dean. Diminished at bases. No wheeze GASTROINTESTINAL: Abdomen soft, mild tenderness to deep palpation, somewhat protuberant. Hypoactive bowel sounds appreciated MUSCULOSKELETAL: Extremities with 1 plus pitting lower extremity edema. No obvious deformities. NEUROLOGICAL: Awake and alert. No obvious cranial nerve deficits. Motor grossly within normal limits. Five out of 5 muscle strength in the arms and legs. Normal speech. PSYCHIATRIC: Appropriate mood and affect; insight and judgment normal. Procedures 06/16- thoracentesis 500 cc out- transudate A/P Problem List: (1) Ascites ICD Code: R18.8 Status: Acute (2) Pleural effusion ICD Code: J90 Status: Acute (3) Sepsis ICD Code: A41.9 Status: Acute (4) Hyperbilirubinemia ICD Code: E80.6 Status: Acute (5) Pneumonia ICD Code: J18.9 Status: Acute Assessment and Plan Neuro/Psych: EtOH Continue thiamine folate and multivitamin daily for EtOH use Ativan 0.5 every 8 hours when necessary anxiety [place] for pain Morphine PRN for breakthrough pain. CV: Monitor HR and BP keep MAP>65mmHg. On Lopressor 12.5mg BID for rate control. Echo showed EF 50-55%, no regional wall motion abnormality Resp: Acute hypoxemic respiratory failure Continue with oxygen keep sat >92% currently on 4 L Bronchodilators ( DuoNeb every 6 hours, Pulmicort twice a day) NIPPV for resp distress CXR 06/29 showed worsening b/l pulm infiltrates, especially left upper lobe 06/26 CTA chest : No PE, Worsening bilateral dense air space consolidation in both lungs. Diffuse liver disease with mild ascites and hepatic enlargement Status post thoracentesis 800 cc transudative right side 06/16 - Continue Solumedrol 40 mg IV Q12 Follow-up Doppler bilateral lower extremity edema GI: Cholelithiasis Abdominal ascites Elevated transaminases Elevated bilirubin Elevated anti-1 antitrypsin 06/10 - MRCP - hepatosplenomegaly. - Ascites - cannot rule out cholecystitis 06/10 - HIDA scan - negative for cholecystitis Seen by gastroenterology. Negative hepatitis, AMA, ASMA, AMA and ceruloplasmin. Had signed off Currently on regular diet Hepatitis profile negative Continue pentoxifylline 400 mg by mouth 3 times a day 06/30 - therapeutic paracentesis -1800 cc /FEN: Monitor renal function, I/O's, electrolytes replacement per protocol. Endo: Sliding scale insulin for glycemic control Heme: Leukocytosis Macrocytic anemia Monitor CBC ID: Continue with abx (Rocephin) ID is following BC from 06/26-NGTD, 06/28 negative sputum and urine cxs. Monitor for signs of infections ( Fever, WBC) 06/24 sputum cx, strep pneumonia and Legionella urinary Ag all negative MSK: PT evaluate and treat Currently on Os-Zac twice a day Access - Utilize peripheral IV. Prophylaxis - GI - Protonix - DVT - SCD Improving. Plan to DC . Faiiled O2 walking test . Need sO2 at home. Problem Qualifiers (1) Ascites: Qualified Code: R18.8 - Other ascites (2) Sepsis: Qualified Code: A41.9 - Sepsis, due to unspecified organism Nerissa Sykes MD July 03, 2016 16:16
[2016-07-03] MEDS ORDERED: OXYGENTANK NAS.CANULA (16:17)
[2016-07-03] MEDS: FUROSEMIDE 40 MG TAB PO SCH (18:31)
[2016-07-03] MEDS: SPIRONOLACTONE 100 MG TAB PO SCH (18:51)
[2016-07-03] MEDS: DICYCLOMINE HCL 10 MG CAP PO PRN (20:57)
[2016-07-04] VITALS (9 sets, daily range): BP systolic 93–123; BP diastolic 54–73; PULSE 78–113; RESP 17–20; TEMP 96.9–98.4; O2SAT 92–96
[2016-07-04] MEDS: RESP: ALBUTEROL 2.5 MG/IPRATROPIUM 0.5 MG NEB (PRN) NEB (04:42)
[2016-07-04] MEDS: MORPHINE SULFATE 4 MG/ML INJ IV PUSH PRN ×3 (05:07→22:08)
[2016-07-04] MEDS: SODIUM CHLORIDE 0.9% FLUSH 10 ML FLUSH IV FLUSH PRN ×2 (05:08→07:03)
[2016-07-04] MEDS: PENTOXIFYLLINE 400 MG CONTROLLED RELEASE TAB PO SCH ×3 (05:11→21:55)
[2016-07-04] MEDS: INSULIN NovoLIN REGULAR SUPPLEMENTAL SCALE SQ SCH ×4 (05:17→22:08)
[2016-07-04] MEDS: ONDANSETRON HCL 4 MG/2 ML VIAL IV PUSH PRN (07:03)
[2016-07-04] MEDS: RESP: BUDESONIDE 0.5 MG/2 ML NEB NEB SCH ×2 (07:28→20:24)
[2016-07-04 08:24] LABS: AUTOMATED NEUTROPHIL # 25.2 TH/MM3 (1.8-7.7); BASOPHIL # 0.1 TH/MM3 (0-0.2); BASOPHIL % 0.4 % (0.0-2.0); EOSINOPHIL # 0.1 TH/MM3 (0-0.4); EOSINOPHIL % 0.3 % (0.0-4.0); HEMO FLAGS DIFF FINAL; LYMPH % 3.9 % (9.0-44.0); LYMPHOCYTE # 1.1 TH/MM3 (1.0-4.8); MEAN CELL VOLUME 103.2 FL (80.0-100.0); MEAN CORPUSCULAR HEMOGLOBIN 32.3 PG (27.0-34.0); MEAN CORPUSCULAR HGB CONC 31.3 % (32.0-36.0); MONO % 3.9 % (0.0-8.0); NEUT % 91.5 % (16.0-70.0); PLATELET COUNT 138 TH/MM3 (150-450); RED BLOOD COUNT 2.82 MIL/MM3 (4.00-5.30); RED CELL DISTRIBUTION WIDTH 16.1 % (11.6-17.2); WHITE BLOOD COUNT 27.5 TH/MM3 (4.0-11.0)
[2016-07-04] MEDS: CALCIUM CARBONATE 1.25 GM (CA 500 MG) TAB PO SCH ×2 (08:47→21:54)
[2016-07-04] MEDS: CEFUROXIME AXETIL 500 MG TAB PO SCH ×2 (08:47→21:54)
[2016-07-04] MEDS: THIAMINE HCL 100 MG TAB PO SCH (08:47)
[2016-07-04] MEDS: HEPARIN SODIUM - SQ 10,000 UNITS/ML VIAL SQ SCH ×2 (08:47→21:56)
[2016-07-04] MEDS: FOLIC ACID 1 MG TAB PO SCH (08:47)
[2016-07-04] MEDS: PANTOPRAZOLE SOD 40 MG DELAYED RELEASE TAB PO SCH (08:47)
[2016-07-04] MEDS: methylPREDNISolone SOD SUCC 40 MG/1 ML VIAL IV PUSH SCH (08:48)
[2016-07-04] MEDS: MULTIVITAMIN TAB PO SCH (08:48)
[2016-07-04] MEDS: RIFAXIMIN 550 MG TAB PO SCH ×2 (08:48→21:54)
[2016-07-04] MEDS: FUROSEMIDE 40 MG TAB PO SCH (08:48)
[2016-07-04] MEDS: SODIUM CHLORIDE 0.9% FLUSH 10 ML FLUSH IV FLUSH SCH ×2 (08:48→21:56)
[2016-07-04] MEDS: SPIRONOLACTONE 100 MG TAB PO SCH (08:48)
[2016-07-04] MEDS: LORazepam 0.5 MG TAB PO PRN ×2 (08:57→18:29)
[2016-07-04 09:04] LABS: BICARBONATE 28.6 MEQ/L (21.0-32.0); MAGNESIUM 1.6 MG/DL (1.5-2.5); POTASSIUM 3.6 MEQ/L (3.5-5.1)
[2016-07-04] MEDS: METOPROLOL TARTRATE 25 MG TAB PO SCH ×2 (09:08→21:55)
--- NOTE | 2016-07-04 12:17 | HHI.PR ---
Subjective Remarks Patient says she has diarrhea a coupl of times. Will check for C diff. She did walk yesterday in the hallways. She feels tired. No fever or chills. Patient with persistent leukocytosis. Dr Rock notified. No fever or chills overnight. Objective Vitals Vital Signs Date Time Temp Pulse Resp B/P Pulse Ox O2 Delivery O2 Flow Rate FiO2 07/04/16 09:09 Nasal Cannula 2.00 07/04/16 08:00 98.4 106 18 108/60 92 07/04/16 07:30 93 Nasal Cannula 2.00 07/04/16 05:02 112/62 07/04/16 04:07 Nasal Cannula 2.00 07/04/16 04:00 97.4 103 19 93/54 93 07/04/16 00:14 Nasal Cannula 2.00 07/04/16 00:00 96.9 113 18 106/56 92 07/03/16 21:04 97 Nasal Cannula 2.00 07/03/16 20:50 Nasal Cannula 2.00 07/03/16 20:00 97.3 116 19 121/74 93 07/03/16 16:00 110 16 119/74 95 I/O 07/03/16 07/03/16 07/03/16 07/04/16 07/04/16 07/04/16 07:00 15:00 23:00 07:00 15:00 23:00 Intake Total 480 ml 240 ml 720 ml 120 ml Output Total 300 ml 600 ml Balance 480 ml 240 ml 420 ml -480 ml Intake Oral 480 ml 240 ml 720 ml 120 ml Output Urine Total 300 ml 600 ml # Voids 3 3 # Bowel Movements 2 2 1 1 Result Diagram: 07/04/16 0700 07/04/16 0700 Imaging Last Impressions Lower Extremity Ultrasound 07/02/16 0000 Signed Impressions: Service Date/Time: Saturday, July 02, 2016 09:05 - CONCLUSION: No deep venous thrombosis in either lower extremity. Garret Verma MD Cyst Biopsy Asp-Paracentesis US 06/30/16 0000 Signed Impressions: Service Date/Time: June 10:55 - CONCLUSION: Uncomplicated ultrasound guided paracentesis. Garret Verma MD Chest X-Ray 06/30/16 0000 Signed Impressions: Service Date/Time: June 15:27 - CONCLUSION: 1. Bilateral airspace consolidation, left greater than right similar to June 29. No new findings. Silvino Jordan MD CT Angiography 06/26/16 0000 Signed Impressions: Service Date/Time: Sunday, June 26, 2016 15:16 - CONCLUSION: 1. Negative for pulmonary embolus. 2. Worsening bilateral dense air space consolidation in both lungs. 3. Relatively stable bilateral pleural effusions, right greater than left. 4. Diffuse liver disease with mild ascites and hepatic enlargement. Silvino Jordan MD Chest CT 06/21/16 Signed Impressions: Service Date/Time: Tuesday, June 21, 2016 21:50 - CONCLUSION: Widespread areas of consolidation involving the lower lobes bilaterally and the upper lobes bilaterally. This is nonspecific. It could be infectious. There are moderate bilateral pleural effusions and mild ascites. Qasim Phillips MD Abdomen Ultrasound 06/17/16 0000 Signed Impressions: Service Date/Time: Friday, June 17, 2016 10:00 - CONCLUSION: There is not enough fluid for safe paracentesis.. Harish Chaudhary MD FACR Thoracentesis Ultrasound 06/16/16 0000 Signed Impressions: Service Date/Time: May 14:13 - CONCLUSION: Uncomplicated ultrasound guided thoracentesis. Qasim Osuna MD Abdomen/Pelvis CT 06/10/16 0651 Signed Impressions: Service Date/Time: Friday, June 10, 2016 07:22 - CONCLUSION: 1. Enlarged fatty liver. 2. Mild splenomegaly. 3. Small to moderate amount of ascites within the abdomen and pelvis. 4. Small right pleural effusion. 5. Small hiatal hernia. 6. Cholelithiasis. Juan Leblanc MD Hepatobiliary Scan Nuclear Medicine 06/10/16 0000 Signed Impressions: Service Date/Time: Friday, June 10, 2016 12:50 - CONCLUSION: 1. Scintigraphic findings suggesting hepatocellular dysfunction with sluggish washout and persistent background activity. 2. Due to limited excretion, it is difficult to identify the extrahepatic biliary tree. However, activity is seen in the small bowel by 10 minutes. 3. No scintigraphic findings of acute cholecystitis. Bob Lara MD Cholangiopancreatography MRI 06/10/16 0000 Signed Impressions: Service Date/Time: Friday, June 10, 2016 12:25 - CONCLUSION: 1. Hepatosplenomegaly with significantly and inhomogeneously fatty infiltrated liver. 2. Slight ascites and bilateral pleural effusions. 3. Cholelithiasis and pericholecystic fluid and cholecystitis is not excluded. Mert Laurent MD Objective Remarks GENERAL: 31-year-old female, critically ill currently resting in bed on nasal cannula SKIN: Warm and dry. No rash HEAD: Atraumatic. Normocephalic. EYES: Pupils equal and round about 2-3 mm bilaterally and reactive. No scleral icterus. No injection or drainage. ENT: No nasal bleeding or discharge. Mucous membranes pink and moist. NECK: Trachea midline. No JVD. CARDIOVASCULAR: RRR. S1, S2 no S4. Currently without murmur, clicks, gallops or rubs RESPIRATORY: Coarse crackles appreciated throughout lung dean. Diminished at bases. No wheeze GASTROINTESTINAL: Abdomen soft, mild tenderness to deep palpation, somewhat protuberant. Hypoactive bowel sounds appreciated MUSCULOSKELETAL: Extremities with 1 plus pitting lower extremity edema. No obvious deformities. NEUROLOGICAL: Awake and alert. No obvious cranial nerve deficits. Motor grossly within normal limits. Five out of 5 muscle strength in the arms and legs. Normal speech. PSYCHIATRIC: Appropriate mood and affect; insight and judgment normal. Procedures 06/16- thoracentesis 500 cc out- transudate A/P Problem List: (1) Ascites ICD Code: R18.8 Status: Acute (2) Pleural effusion ICD Code: J90 Status: Acute (3) Sepsis ICD Code: A41.9 Status: Acute (4) Hyperbilirubinemia ICD Code: E80.6 Status: Acute (5) Pneumonia ICD Code: J18.9 Status: Acute Assessment and Plan Neuro/Psych: EtOH Continue thiamine folate and multivitamin daily for EtOH use Ativan 0.5 every 8 hours when necessary anxiety [place] for pain Morphine PRN for breakthrough pain. CV: Monitor HR and BP keep MAP>65mmHg. On Lopressor 12.5mg BID for rate control. Echo showed EF 50-55%, no regional wall motion abnormality Resp: Acute hypoxemic respiratory failure Continue with oxygen keep sat >92% currently on 4 L Bronchodilators ( DuoNeb every 6 hours, Pulmicort twice a day) NIPPV for resp distress CXR 06/29 showed worsening b/l pulm infiltrates, especially left upper lobe 06/26 CTA chest : No PE, Worsening bilateral dense air space consolidation in both lungs. Diffuse liver disease with mild ascites and hepatic enlargement Status post thoracentesis 800 cc transudative right side 06/16 - Solumedrol 40 mg IV daily , taoered, continue to taper Patient with persistent leukocytosis 27 K today , Dr Shweta coleman. Also with diarrhea will check for C diff. Start probiotic Follow-up Doppler bilateral lower extremity edema GI: Cholelithiasis Abdominal ascites Elevated transaminases Elevated bilirubin Elevated anti-1 antitrypsin Diarrhea. Check C diff. 06/10 - MRCP - hepatosplenomegaly. - Ascites - cannot rule out cholecystitis 06/10 - HIDA scan - negative for cholecystitis Seen by gastroenterology. Negative hepatitis, AMA, ASMA, AMA and ceruloplasmin. Had signed off Currently on regular diet Hepatitis profile negative Continue pentoxifylline 400 mg by mouth 3 times a day 06/30 - therapeutic paracentesis -1800 cc /FEN: Monitor renal function, I/O's, electrolytes replacement per protocol. Endo: Sliding scale insulin for glycemic control Heme: Leukocytosis Macrocytic anemia Monitor CBC ID: Continue with abx (Rocephin) ID is following BC from 06/26-NGTD, 06/28 negative sputum and urine cxs. Monitor for signs of infections ( Fever, WBC) 06/24 sputum cx, strep pneumonia and Legionella urinary Ag all negative MSK: PT evaluate and treat Currently on Os-Zac twice a day Access - Utilize peripheral IV. Prophylaxis - GI - Protonix - DVT - SCD Discharge plan: Will hold DC as patient with diarrhea and persistent leukocytosis dispite tapering down steroids. Failed O2 walking test . Needs O2 at home. CM to work on obtaining O2 at home, will need repeat walking test within 24 hrs of DC. Problem Qualifiers (1) Ascites: Qualified Code: R18.8 - Other ascites (2) Sepsis: Qualified Code: A41.9 - Sepsis, due to unspecified organism Nerissa Sykes MD July 04, 2016 12:17
[2016-07-04] MEDS: HYDROCORTISONE 1% CREAM 30 GM TOPICAL SCH (12:27)
[2016-07-04] MEDS: LACTOBACILLUS ACIDOPHILUS TAB PO SCH ×2 (13:05→21:54)
[2016-07-04 19:05] LABS: C. DIFF EPI 027 PRESUMPTIVE NEGATIVE (NEGATIVE); C. DIFF TOXIN PCR NEGATIVE (NEGATIVE)
--- NOTE | 2016-07-04 21:14 | HHI.PR ---
Subjective Remarks 06/26 Patient is off BIPAP. Weaned to4 LNC . Afebrile. Breathing better Ambulates in hallway Objective Vital Signs Vital Signs Date Time Temp Pulse Resp B/P Pulse Ox O2 Delivery O2 Flow Rate FiO2 07/04/16 20:24 95 Nasal Cannula 3.00 07/04/16 20:00 97.6 78 17 123/65 96 07/04/16 17:47 16 07/04/16 16:50 16 07/04/16 16:00 98.0 102 18 115/70 93 07/04/16 14:49 92 Room Air 07/04/16 12:00 98.2 110 20 123/73 94 07/04/16 09:09 Nasal Cannula 2.00 07/04/16 08:00 98.4 106 18 108/60 92 07/04/16 07:30 93 Nasal Cannula 2.00 07/04/16 05:02 112/62 07/04/16 04:07 Nasal Cannula 2.00 07/04/16 04:00 97.4 103 19 93/54 93 07/04/16 00:14 Nasal Cannula 2.00 07/04/16 00:00 96.9 113 18 106/56 92 I/O 07/03/16 07/03/16 07/03/16 07/04/16 07/04/16 07/04/16 06:59 14:59 22:59 06:59 14:59 22:59 Intake Total 480 ml 960 ml 120 ml 360 ml 360 ml Output Total 300 ml 600 ml Balance 480 ml 660 ml -480 ml 360 ml 360 ml Intake Oral 480 ml 960 ml 120 ml 360 ml 360 ml Output Urine Total 300 ml 600 ml # Voids 3 3 # Bowel Movements 2 3 1 Result Diagram: 07/04/16 0700 07/04/16 0700 Objective Remarks GENERAL: Patient is 31 yo on partial rebreather SKIN: Warm and dry. HEAD: Normocephalic. EYES: No scleral icterus. No injection or drainage. NECK: Supple, trachea midline. No JVD or lymphadenopathy. CARDIOVASCULAR: Tachycardic without murmurs, gallops, or rubs. RESPIRATORY: Breath sounds equal bilaterally. Few coarse BS GASTROINTESTINAL: Abdomen soft, non-tender, nondistended. MUSCULOSKELETAL: No cyanosis, or edema. Neuro: Awake and alert A/P Assessment and Plan Resp Insuff Pneumonia Pleural effusion, s/p Thoracentesis Leukocytosis Anemia Alcohlic hepatitis ETOH use Nicotine use PLAN: Supplement 02 with NC 5Lit Continue with oxygen keep sat >92% Bronchodilators, IS CXR from 06/25: Mild increased opacity in left perihilar region with improved opacity in the right upper lobe. Small right effusion. Currently on Pulmicort twice a day/DuoNeb Status post thoracentesis 800 cc transudative right side 06/16 - Continue with abx (Zosyn), Monitor for signs of infections strep pneumonia and legionella urinary ag negative. Sputum cx 06/24: normal resp arianna. GI/DVT prophylaxis Decrease Fluid intake. Tomi Mckeon MD July 04, 2016 21:14
[2016-07-05] VITALS (8 sets, daily range): BP systolic 108–126; BP diastolic 67–81; PULSE 69–113; RESP 18–22; TEMP 97.6–99.6; O2SAT 93–98
[2016-07-05] MEDS: INSULIN NovoLIN REGULAR SUPPLEMENTAL SCALE SQ SCH ×4 (05:19→20:32)
[2016-07-05] MEDS: PENTOXIFYLLINE 400 MG CONTROLLED RELEASE TAB PO SCH ×3 (05:20→22:52)
[2016-07-05 05:57] LABS: AUTOMATED NEUTROPHIL # 23.8 TH/MM3 (1.8-7.7); BASOPHIL % 0.2 % (0.0-2.0); EOSINOPHIL # 0.1 TH/MM3 (0-0.4); EOSINOPHIL % 0.2 % (0.0-4.0); HEMO FLAGS DIFF FINAL; LYMPH % 2.5 % (9.0-44.0); LYMPHOCYTE # 0.6 TH/MM3 (1.0-4.8); MEAN CELL VOLUME 101.9 FL (80.0-100.0); MEAN CORPUSCULAR HEMOGLOBIN 32.9 PG (27.0-34.0); MEAN CORPUSCULAR HGB CONC 32.3 % (32.0-36.0); MONO % 4.5 % (0.0-8.0); NEUT % 92.6 % (16.0-70.0); PLATELET COUNT 132 TH/MM3 (150-450); RED BLOOD COUNT 2.65 MIL/MM3 (4.00-5.30); RED CELL DISTRIBUTION WIDTH 15.9 % (11.6-17.2); WHITE BLOOD COUNT 25.7 TH/MM3 (4.0-11.0)
[2016-07-05 06:14] LABS: BICARBONATE 29.5 MEQ/L (21.0-32.0); MAGNESIUM 1.6 MG/DL (1.5-2.5); POTASSIUM 3.7 MEQ/L (3.5-5.1)
[2016-07-05] MEDS ORDERED: MAGNESIUM OXIDE 400 MG TAB PO ONE (06:45)
--- NOTE | 2016-07-05 07:47 | HHI.PR ---
Subjective Remarks Patient with sob. Still with some abdominal pain. No nausea or vomiting. Diarrhea stopped. C. difficile is negative. Continue probiotics. Denies fevers or chills. No cough. She is dessating without O2. Failed O2 test again. Seen by infectious disease who cleared the patient for discharge. Discussed with Dr. Casey Recommends discontinuing steroids. She has persistent leukocytosis. Objective Vitals Vital Signs Date Time Temp Pulse Resp B/P Pulse Ox O2 Delivery O2 Flow Rate FiO2 07/05/16 04:24 Nasal Cannula 2.00 07/05/16 04:00 97.9 69 18 110/67 98 07/05/16 00:30 Nasal Cannula 2.00 07/05/16 00:00 97.6 112 18 126/81 95 07/04/16 20:24 95 Nasal Cannula 3.00 07/04/16 20:00 97.6 78 17 123/65 96 07/04/16 17:47 16 07/04/16 16:50 16 07/04/16 16:00 98.0 102 18 115/70 93 07/04/16 14:49 92 Room Air 07/04/16 12:00 98.2 110 20 123/73 94 07/04/16 09:09 Nasal Cannula 2.00 07/04/16 08:00 98.4 106 18 108/60 92 I/O 07/04/16 07/04/16 07/04/16 07/05/16 07/05/16 07/05/16 07:00 15:00 23:00 07:00 15:00 23:00 Intake Total 120 ml 360 ml 640 ml 240 ml Output Total 600 ml Balance -480 ml 360 ml 640 ml 240 ml Intake Oral 120 ml 360 ml 640 ml 240 ml Output Urine Total 600 ml # Voids 2 3 # Bowel Movements 1 2 Result Diagram: 07/05/16 0435 07/05/16 0435 Imaging Last Impressions Chest X-Ray 07/05/16 0000 Signed Impressions: Service Date/Time: Tuesday, July 05, 2016 09:23 - CONCLUSION: 1. Diffuse bilateral infiltrates and bibasilar fusions stable compared to previous exam. Michele Chaudhary MD Lower Extremity Ultrasound 07/02/16 0000 Signed Impressions: Service Date/Time: Saturday, July 02, 2016 09:05 - CONCLUSION: No deep venous thrombosis in either lower extremity. Garret Verma MD Cyst Biopsy Asp-Paracentesis US 06/30/16 0000 Signed Impressions: Service Date/Time: June 10:55 - CONCLUSION: Uncomplicated ultrasound guided paracentesis. Garret Verma MD CT Angiography 06/26/16 0000 Signed Impressions: Service Date/Time: Sunday, June 26, 2016 15:16 - CONCLUSION: 1. Negative for pulmonary embolus. 2. Worsening bilateral dense air space consolidation in both lungs. 3. Relatively stable bilateral pleural effusions, right greater than left. 4. Diffuse liver disease with mild ascites and hepatic enlargement. Silvino Jordan MD Chest CT 06/21/16 0000 Signed Impressions: Service Date/Time: Tuesday, June 21, 2016 21:50 - CONCLUSION: Widespread areas of consolidation involving the lower lobes bilaterally and the upper lobes bilaterally. This is nonspecific. It could be infectious. There are moderate bilateral pleural effusions and mild ascites. Qasim Phillips MD Abdomen Ultrasound 06/17/16 0000 Signed Impressions: Service Date/Time: Friday, June 17, 2016 10:00 - CONCLUSION: There is not enough fluid for safe paracentesis.. Harish Chaudhary MD FACR Thoracentesis Ultrasound 06/16/16 0000 Signed Impressions: Service Date/Time: May 14:13 - CONCLUSION: Uncomplicated ultrasound guided thoracentesis. Qasim Osuna MD Abdomen/Pelvis CT 06/10/16 0651 Signed Impressions: Service Date/Time: Friday, June 10, 2016 07:22 - CONCLUSION: 1. Enlarged fatty liver. 2. Mild splenomegaly. 3. Small to moderate amount of ascites within the abdomen and pelvis. 4. Small right pleural effusion. 5. Small hiatal hernia. 6. Cholelithiasis. Juan Leblanc MD Hepatobiliary Scan Nuclear Medicine 06/10/16 0000 Signed Impressions: Service Date/Time: Friday, June 10, 2016 12:50 - CONCLUSION: 1. Scintigraphic findings suggesting hepatocellular dysfunction with sluggish washout and persistent background activity. 2. Due to limited excretion, it is difficult to identify the extrahepatic biliary tree. However, activity is seen in the small bowel by 10 minutes. 3. No scintigraphic findings of acute cholecystitis. Bob Lara MD Cholangiopancreatography MRI 06/10/16 0000 Signed Impressions: Service Date/Time: Friday, June 10, 2016 12:25 - CONCLUSION: 1. Hepatosplenomegaly with significantly and inhomogeneously fatty infiltrated liver. 2. Slight ascites and bilateral pleural effusions. 3. Cholelithiasis and pericholecystic fluid and cholecystitis is not excluded. Mert Laurent MD Objective Remarks GENERAL: 31-year-old female, critically ill currently resting in bed on nasal cannula SKIN: Warm and dry. No rash HEAD: Atraumatic. Normocephalic. EYES: Pupils equal and round about 2-3 mm bilaterally and reactive. No scleral icterus. No injection or drainage. ENT: No nasal bleeding or discharge. Mucous membranes pink and moist. NECK: Trachea midline. No JVD. CARDIOVASCULAR: RRR. S1, S2 no S4. Currently without murmur, clicks, gallops or rubs RESPIRATORY: Coarse crackles appreciated throughout lung dean. Diminished at bases. No wheeze GASTROINTESTINAL: Abdomen soft, mild tenderness to deep palpation, somewhat protuberant. Hypoactive bowel sounds appreciated MUSCULOSKELETAL: Extremities with 1 plus pitting lower extremity edema. No obvious deformities. NEUROLOGICAL: Awake and alert. No obvious cranial nerve deficits. Motor grossly within normal limits. Five out of 5 muscle strength in the arms and legs. Normal speech. PSYCHIATRIC: Appropriate mood and affect; insight and judgment normal. Procedures 06/16- thoracentesis 500 cc out- transudate A/P Problem List: (1) Ascites ICD Code: R18.8 Status: Acute (2) Pleural effusion ICD Code: J90 Status: Acute (3) Sepsis ICD Code: A41.9 Status: Acute (4) Hyperbilirubinemia ICD Code: E80.6 Status: Acute (5) Pneumonia ICD Code: J18.9 Status: Acute Assessment and Plan Neuro/Psych: EtOH Continue thiamine folate and multivitamin daily for EtOH use Ativan 0.5 every 8 hours when necessary anxiety Commerce for pain Morphine PRN for breakthrough pain. CV: Monitor HR and BP keep MAP>65mmHg. On Lopressor 12.5mg BID for rate control. Echo showed EF 50-55%, no regional wall motion abnormality Resp: Acute hypoxemic respiratory failure Continue with oxygen keep sat >92% currently on 4 L Bronchodilators ( DuoNeb every 6 hours, Pulmicort twice a day) NIPPV for resp distress CXR 06/29 showed worsening b/l pulm infiltrates, especially left upper lobe 06/26 CTA chest : No PE, Worsening bilateral dense air space consolidation in both lungs. Diffuse liver disease with mild ascites and hepatic enlargement Status post thoracentesis 800 cc transudative right side 06/16 - Solumedrol 40 mg IV daily , taoered, continue to taper Patient with persistent leukocytosis 27 K today , Dr Swheta coleman. Also with diarrhea will check for C diff. Start probiotic Follow-up Doppler bilateral lower extremity edema GI: Cholelithiasis Abdominal ascites Elevated transaminases Elevated bilirubin Elevated anti-1 antitrypsin Diarrhea. Check C diff. 06/10 - MRCP - hepatosplenomegaly. - Ascites - cannot rule out cholecystitis 06/10 - HIDA scan - negative for cholecystitis Seen by gastroenterology. Negative hepatitis, AMA, ASMA, AMA and ceruloplasmin. Had signed off Currently on regular diet Hepatitis profile negative Continue pentoxifylline 400 mg by mouth 3 times a day 06/30 - therapeutic paracentesis -1800 cc /FEN: Monitor renal function, I/O's, electrolytes replacement per protocol. Endo: Sliding scale insulin for glycemic control Heme: Leukocytosis Macrocytic anemia Monitor CBC ID: Continue with abx (Rocephin) ID is following BC from 06/26-NGTD, 06/28 negative sputum and urine cxs. Monitor for signs of infections ( Fever, WBC) 06/24 sputum cx, strep pneumonia and Legionella urinary Ag all negative MSK: PT evaluate and treat Currently on Os-Zac twice a day Access - Utilize peripheral IV. Prophylaxis - GI - Protonix - DVT - SCD Discharge plan: Will hold DC as patient with diarrhea and persistent leukocytosis dispite tapering down steroids. Failed O2 walking test . Needs O2 at home. CM to work on obtaining O2 at home, will need repeat walking test within 24 hrs of DC. CM working on DC plan Problem Qualifiers (1) Ascites: Qualified Code: R18.8 - Other ascites (2) Sepsis: Qualified Code: A41.9 - Sepsis, due to unspecified organism Nerissa Sykes MD July 05, 2016 07:47
[2016-07-05] MEDS: RESP: BUDESONIDE 0.5 MG/2 ML NEB NEB SCH ×2 (07:55→19:14)
[2016-07-05] MEDS: LACTOBACILLUS ACIDOPHILUS TAB PO SCH ×2 (08:38→20:17)
[2016-07-05] MEDS: FUROSEMIDE 40 MG TAB PO SCH (08:39)
[2016-07-05] MEDS: RIFAXIMIN 550 MG TAB PO SCH ×2 (08:39→20:17)
[2016-07-05] MEDS: THIAMINE HCL 100 MG TAB PO SCH (08:39)
[2016-07-05] MEDS: CEFUROXIME AXETIL 500 MG TAB PO SCH ×2 (08:39→20:17)
[2016-07-05] MEDS: MULTIVITAMIN TAB PO SCH (08:40)
[2016-07-05] MEDS: MAGNESIUM OXIDE 400 MG TAB PO SCH (08:40)
[2016-07-05] MEDS: CALCIUM CARBONATE 1.25 GM (CA 500 MG) TAB PO SCH ×2 (08:40→20:18)
[2016-07-05] MEDS: FOLIC ACID 1 MG TAB PO SCH (08:40)
[2016-07-05] MEDS: PANTOPRAZOLE SOD 40 MG DELAYED RELEASE TAB PO SCH (08:40)
[2016-07-05] MEDS: SPIRONOLACTONE 100 MG TAB PO SCH (08:40)
[2016-07-05] MEDS: methylPREDNISolone SOD SUCC 40 MG/1 ML VIAL IV PUSH SCH (08:41)
[2016-07-05] MEDS: HEPARIN SODIUM - SQ 10,000 UNITS/ML VIAL SQ SCH ×2 (08:41→20:22)
[2016-07-05] MEDS: SODIUM CHLORIDE 0.9% FLUSH 10 ML FLUSH IV FLUSH SCH ×2 (08:52→20:14)
[2016-07-05] MEDS: METOPROLOL TARTRATE 25 MG TAB PO SCH ×2 (08:55→20:18)
--- NOTE | 2016-07-05 09:47 | RADRPT ---
EXAM DATE/TIME: 07/05/2016 09:23 [place] COMPARISON: CHEST PA & LAT, June 18, 2016, 10:37. CT THORAX W/O CONTRAST, June 21, 2016, 21:50. CHEST SINGLE AP , June 30, 2016, 15:27. INDICATIONS : Short of breath. MEDICAL HISTORY : nausea and vomiting, pneumonia SURGICAL HISTORY : None. ENCOUNTER: Initial ACUITY: 3 weeks PAIN SCORE: 0/10 LOCATION: Bilateral chest FINDINGS: The exam demonstrates diffuse bilateral parenchymal infiltrates consistent with bilateral pneumonia. This is unchanged from previous study dated 06/30/16. The heart is normal in size. There are small bib asilar effusions. The bony structures are intact. CONCLUSION: 1. Diffuse bilateral infiltrates and bibasilar fusions stable compared to previous exam. Michele Chaudhary MD on July 05, 2016 at 9:44 Board Certified Radiologist. This report was verified electronically.
[2016-07-05] MEDS: LORazepam 0.5 MG TAB PO PRN ×2 (10:45→22:54)
--- NOTE | 2016-07-05 12:37 | HHI.IDPN ---
Subjective Subjective Remarks Notes reviewed On nasal O2, still requiring O2 Cough better Not SOB Last CXR stable Sputum normal arianna Legionella and Pneumococcal Ag negative WBC 25k, down from 27k Afebrile Nothing new on C/S UA ok Stool C diff negative On solumedrol, dose just got decreased HIV negative Antibiotics ceftin Lines PIV Past Medical History ETOH abuse Arthroscopic surgery to knee Allergies: Coded Allergies: No Known Allergies (Unverified , 06/10/16) Objective . Vital Signs Date Time Temp Pulse Resp B/P Pulse Ox O2 Delivery O2 Flow Rate FiO2 07/05/16 10:00 18 07/05/16 09:07 Nasal Cannula 3.00 07/05/16 08:00 98.2 112 22 108/71 95 07/05/16 07:55 94 Nasal Cannula 3.00 07/05/16 04:24 Nasal Cannula 2.00 07/05/16 04:00 97.9 69 18 110/67 98 07/05/16 00:30 Nasal Cannula 2.00 07/05/16 00:00 97.6 112 18 126/81 95 07/04/16 20:24 95 Nasal Cannula 3.00 07/04/16 20:00 97.6 78 17 123/65 96 07/04/16 16:50 16 07/04/16 16:00 98.0 102 18 115/70 93 07/04/16 14:49 92 Room Air 07/04/16 07/04/16 07/05/16 15:00 23:00 07:00 Intake Total 360 ml 640 ml 240 ml Balance 360 ml 640 ml 240 ml Intake Oral 360 ml 640 ml 240 ml # Voids 2 3 # Bowel Movements 2 . Laboratory Tests Test 07/04/16 07/05/16 07:00 04:35 White Blood Count 27.5 TH/MM3 25.7 TH/MM3 Red Blood Count 2.82 MIL/MM3 2.65 MIL/MM3 Hemoglobin 9.1 GM/DL 8.7 GM/DL Hematocrit 29.0 % 27.0 % Mean Corpuscular Volume 103.2 FL 101.9 FL Mean Corpuscular Hemoglobin 32.3 PG 32.9 PG Mean Corpuscular Hemoglobin 31.3 % 32.3 % Concent Red Cell Distribution Width 16.1 % 15.9 % Platelet Count 138 TH/MM3 132 TH/MM3 Mean Platelet Volume 11.3 FL 11.4 FL Neutrophils (%) (Auto) 91.5 % 92.6 % Lymphocytes (%) (Auto) 3.9 % 2.5 % Monocytes (%) (Auto) 3.9 % 4.5 % Eosinophils (%) (Auto) 0.3 % 0.2 % Basophils (%) (Auto) 0.4 % 0.2 % Neutrophils # (Auto) 25.2 TH/MM3 23.8 TH/MM3 Lymphocytes # (Auto) 1.1 TH/MM3 0.6 TH/MM3 Monocytes # (Auto) 1.1 TH/MM3 1.2 TH/MM3 Eosinophils # (Auto) 0.1 TH/MM3 0.1 TH/MM3 Basophils # (Auto) 0.1 TH/MM3 0.0 TH/MM3 CBC Comment DIFF FINAL DIFF FINAL Differential Comment Laboratory Tests Test 07/04/16 07/05/16 07:00 04:35 Sodium Level 136 MEQ/L 136 MEQ/L Potassium Level 3.6 MEQ/L 3.7 MEQ/L Chloride Level 97 MEQ/L 98 MEQ/L Carbon Dioxide Level 28.6 MEQ/L 29.5 MEQ/L Anion Gap 10 MEQ/L 9 MEQ/L Blood Urea Nitrogen 8 MG/DL 10 MG/DL Creatinine 0.45 MG/DL 0.44 MG/DL Estimat Glomerular Filtration 160 ML/MIN 165 ML/MIN Rate Random Glucose 126 MG/DL 145 MG/DL Calcium Level 7.9 MG/DL 8.2 MG/DL Magnesium Level 1.6 MG/DL 1.6 MG/DL Imaging Chest X-Ray 06/27/16 0000 Signed Impressions: Service Date/Time: Monday, June 27, 2016 04:15 - CONCLUSION: Worsening bilateral infiltrates. Small right effusion. Chapo Egan Jr., MD CT Angiography 06/26/16 0000 Signed Impressions: Service Date/Time: Sunday, June 26, 2016 15:16 - CONCLUSION: 1. Negative for pulmonary embolus. 2. Worsening bilateral dense air space consolidation in both lungs. 3. Relatively stable bilateral pleural effusions, right greater than left. 4. Diffuse liver disease with mild ascites and hepatic enlargement. Silvino Jordan MD Chest CT 06/21/16 0000 Signed Impressions: Service Date/Time: Tuesday, June 21, 2016 21:50 - CONCLUSION: Widespread areas of consolidation involving the lower lobes bilaterally and the upper lobes bilaterally. This is nonspecific. It could be infectious. There are moderate bilateral pleural effusions and mild ascites. Qasim Phillips MD Abdomen Ultrasound 06/17/16 0000 Signed Impressions: Service Date/Time: Friday, June 17, 2016 10:00 - CONCLUSION: There is not enough fluid for safe paracentesis.. Harish Chaudhary MD FACR Thoracentesis Ultrasound 06/16/16 0000 Signed Impressions: Service Date/Time: May 14:13 - CONCLUSION: Uncomplicated ultrasound guided thoracentesis. Qasim Osuna MD Abdomen/Pelvis CT 06/10/16 0651 Signed Impressions: Service Date/Time: Friday, June 10, 2016 07:22 - CONCLUSION: 1. Enlarged fatty liver. 2. Mild splenomegaly. 3. Small to moderate amount of ascites within the abdomen and pelvis. 4. Small right pleural effusion. 5. Small hiatal hernia. 6. Cholelithiasis. Juan Leblanc MD Hepatobiliary Scan Nuclear Medicine 06/10/16 0000 Signed Impressions: Service Date/Time: Friday, June 10, 2016 12:50 - CONCLUSION: 1. Scintigraphic findings suggesting hepatocellular dysfunction with sluggish washout and persistent background activity. 2. Due to limited excretion, it is difficult to identify the extrahepatic biliary tree. However, activity is seen in the small bowel by 10 minutes. 3. No scintigraphic findings of acute cholecystitis. Bob Lara MD Cholangiopancreatography MRI 06/10/16 0000 Signed Impressions: Service Date/Time: Friday, June 10, 2016 12:25 - CONCLUSION: 1. Hepatosplenomegaly with significantly and inhomogeneously fatty infiltrated liver. 2. Slight ascites and bilateral pleural effusions. 3. Cholelithiasis and pericholecystic fluid and cholecystitis is not excluded. Mert Laurent MD Chest X-Ray 06/15/16 1259 Signed Impressions: Service Date/Time: Wednesday, June 15, 2016 13:21 - CONCLUSION: Slight worsening of right pleural effusion and right lung base consolidation, otherwise no change in left pleural effusion and probable mild case of pulmonary edema Mert Laurent MD Abdomen Ultrasound 06/14/16 0000 Signed Impressions: Service Date/Time: Tuesday, June 14, 2016 09:13 - CONCLUSION: 1. Small volume ascites Jamaal Eastman MD Hepatobiliary Scan Nuclear Medicine 06/10/16 0000 Signed Impressions: Service Date/Time: Friday, June 10, 2016 12:50 - CONCLUSION: 1. Scintigraphic findings suggesting hepatocellular dysfunction with sluggish washout and persistent background activity. 2. Due to limited excretion, it is difficult to identify the extrahepatic biliary tree. However, activity is seen in the small bowel by 10 minutes. 3. No scintigraphic findings of acute cholecystitis. Bob Lara MD Cholangiopancreatography MRI 06/10/16 0000 Signed Impressions: Service Date/Time: Friday, June 10, 2016 12:25 - CONCLUSION: 1. Hepatosplenomegaly with significantly and inhomogeneously fatty infiltrated liver. 2. Slight ascites and bilateral pleural effusions. 3. Cholelithiasis and pericholecystic fluid and cholecystitis is not excluded. Mert Laurent MD Physical Exam GENERAL: Awake and alert, NAD, on nasal O2 SKIN: cool and dry, jaundiced, has spider angiomata in her upper chest, improving HEENT: Normocephalic, atraumatic. [place] conjunctivae. LEA. Has less scleral icterus. Moist oral mucosa. NECK: Trachea midline. No JVD or lymphadenopathy. Supple, nontender, no meningeal signs. CARDIOVASCULAR: . Regular rate and rhythm without murmurs, gallops, or rubs. RESPIRATORY: decreased at the bases. NO wheezing. Equal BS katie. GASTROINTESTINAL: Abdomen mildly distended, globular, soft and not tender. Bowel sounds present and normoactive. No guarding. No rebound. MUSCULOSKELETAL: Extremities without clubbing, cyanosis, or edema. No joint tenderness, effusion, or edema noted. No calf tenderness. NEUROLOGICAL: Non-focal PSYCH: Calm and cooperative LINE: PIV with no evidence of infection Assessment & Plan Remarks IMPRESSION Persistent leukocytosis, etiology, likely reactive - due to pulmonary process and steroids adding to it - no new infection identified - looks much improved Bilateral pulmonary infiltrates, due to HCAP Respiratory failure due to katie infiltrates One (+) BC with propionibacterium C/W contamination - skin arianna - can be pathogenic but usually in setting where hardware present ETOH hepatitis Diarrhea, C diff negative RECOMMENDATION To complete Ceftin 5/20 - complete Rx for PNA D/C steroids if possible She is clinically stable and improving from ID standpoint Repeat CBC and follow CBC in 3-4 weeks She can be D/C from ID standpoint Whit Rock MD July 05, 2016 12:37 Whit Rock MD July 05, 2016 12:37
[2016-07-05] MEDS: HYDROCORTISONE 1% CREAM 30 GM TOPICAL SCH (16:16)
[2016-07-05] MEDS: DICYCLOMINE HCL 10 MG CAP PO PRN (20:06)
[2016-07-05] MEDS: MORPHINE SULFATE 4 MG/ML INJ IV PUSH PRN (20:14)
[2016-07-05] MEDS: SODIUM CHLORIDE 0.9% FLUSH 10 ML FLUSH IV FLUSH PRN (20:14)
--- NOTE | 2016-07-05 20:28 | HHI.PR ---
Subjective Remarks Patient is off BIPAP. Weaned to4 LNC . Afebrile. Breathing better Ambulates in hallway Objective Vital Signs Vital Signs Date Time Temp Pulse Resp B/P Pulse Ox O2 Delivery O2 Flow Rate FiO2 07/05/16 19:14 95 Nasal Cannula 3.00 07/05/16 18:36 16 07/05/16 16:03 96 Nasal Cannula 3.00 07/05/16 16:00 99.6 110 20 112/68 93 07/05/16 13:45 97 Nasal Cannula 3.00 07/05/16 12:00 97.7 105 18 112/75 94 07/05/16 09:07 Nasal Cannula 3.00 07/05/16 08:00 98.2 112 22 108/71 95 07/05/16 07:55 94 Nasal Cannula 3.00 07/05/16 04:24 Nasal Cannula 2.00 07/05/16 04:00 97.9 69 18 110/67 98 07/05/16 00:30 Nasal Cannula 2.00 07/05/16 00:00 97.6 112 18 126/81 95 I/O 07/04/16 07/04/16 07/04/16 07/05/16 07/05/16 07/05/16 07:00 15:00 23:00 07:00 15:00 23:00 Intake Total 120 ml 360 ml 640 ml 240 ml 280 ml Output Total 600 ml Balance -480 ml 360 ml 640 ml 240 ml 280 ml Intake Oral 120 ml 360 ml 640 ml 240 ml 280 ml Output Urine Total 600 ml # Voids 2 3 # Bowel Movements 1 2 Result Diagram: 07/05/16 0435 07/05/16 0435 Objective Remarks GENERAL: Patient is 31 yo on partial rebreather SKIN: Warm and dry. HEAD: Normocephalic. EYES: No scleral icterus. No injection or drainage. NECK: Supple, trachea midline. No JVD or lymphadenopathy. CARDIOVASCULAR: Tachycardic without murmurs, gallops, or rubs. RESPIRATORY: Breath sounds equal bilaterally. Few coarse BS GASTROINTESTINAL: Abdomen soft, non-tender, nondistended. MUSCULOSKELETAL: No cyanosis, or edema. Neuro: Awake and alert A/P Assessment and Plan Resp Insuff Pneumonia Pleural effusion, s/p Thoracentesis Leukocytosis Anemia Alcohlic hepatitis ETOH use Nicotine use PLAN: Supplement 02 with NC 5Lit Continue with oxygen keep sat >92% Bronchodilators, IS CXR from 06/25: Mild increased opacity in left perihilar region with improved opacity in the right upper lobe. Small right effusion. Currently on Pulmicort twice a day/DuoNeb Status post thoracentesis 800 cc transudative right side 06/16 - Continue with abx (Zosyn), Monitor for signs of infections strep pneumonia and legionella urinary ag negative. Sputum cx 06/24: normal resp arianna. GI/DVT prophylaxis Decrease Fluid intake. DC Plans underway. Tomi Mckeon MD July 05, 2016 20:28
[2016-07-06] VITALS (7 sets, daily range): BP systolic 104–116; BP diastolic 58–67; PULSE 103–112; RESP 20; TEMP 97.5–100.1; O2SAT 91–97
[2016-07-06] MEDS: PENTOXIFYLLINE 400 MG CONTROLLED RELEASE TAB PO SCH ×2 (05:22→14:00)
[2016-07-06] MEDS: INSULIN NovoLIN REGULAR SUPPLEMENTAL SCALE SQ SCH ×2 (05:27→11:00)
[2016-07-06] MEDS: CALCIUM CARBONATE 1.25 GM (CA 500 MG) TAB PO SCH (08:16)
[2016-07-06] MEDS: FOLIC ACID 1 MG TAB PO SCH (08:16)
[2016-07-06] MEDS: METOPROLOL TARTRATE 25 MG TAB PO SCH (08:16)
[2016-07-06] MEDS: FUROSEMIDE 40 MG TAB PO SCH (08:16)
[2016-07-06] MEDS: MULTIVITAMIN TAB PO SCH (08:17)
[2016-07-06] MEDS: THIAMINE HCL 100 MG TAB PO SCH (08:17)
[2016-07-06] MEDS: CEFUROXIME AXETIL 500 MG TAB PO SCH (08:17)
[2016-07-06] MEDS: PANTOPRAZOLE SOD 40 MG DELAYED RELEASE TAB PO SCH (08:17)
[2016-07-06] MEDS: RIFAXIMIN 550 MG TAB PO SCH (08:17)
[2016-07-06] MEDS: LACTOBACILLUS ACIDOPHILUS TAB PO SCH (08:17)
[2016-07-06] MEDS: SPIRONOLACTONE 100 MG TAB PO SCH (08:17)
[2016-07-06] MEDS: HEPARIN SODIUM - SQ 10,000 UNITS/ML VIAL SQ SCH (08:17)
[2016-07-06] MEDS: MAGNESIUM OXIDE 400 MG TAB PO SCH (08:17)
[2016-07-06] MEDS: SODIUM CHLORIDE 0.9% FLUSH 10 ML FLUSH IV FLUSH SCH (08:25)
--- NOTE | 2016-07-06 08:38 | HHI.IDPN ---
Subjective Subjective Remarks Notes reviewed On nasal O2, still requiring O2 Cough better Get SOB with activity Anxious to go home Afebrile Antibiotics ceftin - to finish 07/09 Lines PIV Past Medical History reviewed Allergies: Coded Allergies: No Known Allergies (Unverified , 06/10/16) Objective . Vital Signs Date Time Temp Pulse Resp B/P Pulse Ox O2 Delivery O2 Flow Rate FiO2 07/06/16 04:00 96 Nasal Cannula 3.00 07/06/16 04:00 98.6 105 20 115/67 92 07/06/16 00:55 96 Nasal Cannula 3.00 07/06/16 00:00 98.0 103 20 116/67 94 07/05/16 20:00 99.6 113 20 126/79 94 07/05/16 19:14 95 Nasal Cannula 3.00 07/05/16 18:36 16 07/05/16 16:03 96 Nasal Cannula 3.00 07/05/16 16:00 99.6 110 20 112/68 93 07/05/16 13:45 97 Nasal Cannula 3.00 07/05/16 12:00 97.7 105 18 112/75 94 07/05/16 09:07 Nasal Cannula 3.00 07/05/16 07/05/16 07/06/16 15:00 23:00 07:00 Intake Total 400 ml 120 ml Balance 400 ml 120 ml Intake Oral 400 ml 120 ml # Voids 1 1 # Bowel Movements 0 2 . Laboratory Tests Test 07/05/16 04:35 White Blood Count 25.7 TH/MM3 Red Blood Count 2.65 MIL/MM3 Hemoglobin 8.7 GM/DL Hematocrit 27.0 % Mean Corpuscular Volume 101.9 FL Mean Corpuscular Hemoglobin 32.9 PG Mean Corpuscular Hemoglobin 32.3 % Concent Red Cell Distribution Width 15.9 % Platelet Count 132 TH/MM3 Mean Platelet Volume 11.4 FL Neutrophils (%) (Auto) 92.6 % Lymphocytes (%) (Auto) 2.5 % Monocytes (%) (Auto) 4.5 % Eosinophils (%) (Auto) 0.2 % Basophils (%) (Auto) 0.2 % Neutrophils # (Auto) 23.8 TH/MM3 Lymphocytes # (Auto) 0.6 TH/MM3 Monocytes # (Auto) 1.2 TH/MM3 Eosinophils # (Auto) 0.1 TH/MM3 Basophils # (Auto) 0.0 TH/MM3 CBC Comment DIFF FINAL Differential Comment Laboratory Tests Test 07/05/16 04:35 Sodium Level 136 MEQ/L Potassium Level 3.7 MEQ/L Chloride Level 98 MEQ/L Carbon Dioxide Level 29.5 MEQ/L Anion Gap 9 MEQ/L Blood Urea Nitrogen 10 MG/DL Creatinine 0.44 MG/DL Estimat Glomerular Filtration 165 ML/MIN Rate Random Glucose 145 MG/DL Calcium Level 8.2 MG/DL Magnesium Level 1.6 MG/DL Imaging Chest X-Ray 06/27/16 0000 Signed Impressions: Service Date/Time: Monday, June 27, 2016 04:15 - CONCLUSION: Worsening bilateral infiltrates. Small right effusion. Chapo Egan Jr., MD CT Angiography 06/26/16 0000 Signed Impressions: Service Date/Time: Sunday, June 26, 2016 15:16 - CONCLUSION: 1. Negative for pulmonary embolus. 2. Worsening bilateral dense air space consolidation in both lungs. 3. Relatively stable bilateral pleural effusions, right greater than left. 4. Diffuse liver disease with mild ascites and hepatic enlargement. Silvino Jordan MD Chest CT 06/21/16 0000 Signed Impressions: Service Date/Time: Tuesday, June 21, 2016 21:50 - CONCLUSION: Widespread areas of consolidation involving the lower lobes bilaterally and the upper lobes bilaterally. This is nonspecific. It could be infectious. There are moderate bilateral pleural effusions and mild ascites. Qasim Phillips MD Abdomen Ultrasound 06/17/16 0000 Signed Impressions: Service Date/Time: Friday, June 17, 2016 10:00 - CONCLUSION: There is not enough fluid for safe paracentesis.. Harish Chaudhary MD FACR Thoracentesis Ultrasound 06/16/16 0000 Signed Impressions: Service Date/Time: May 14:13 - CONCLUSION: Uncomplicated ultrasound guided thoracentesis. Qasim Osuna MD Abdomen/Pelvis CT 06/10/16 0651 Signed Impressions: Service Date/Time: Friday, June 10, 2016 07:22 - CONCLUSION: 1. Enlarged fatty liver. 2. Mild splenomegaly. 3. Small to moderate amount of ascites within the abdomen and pelvis. 4. Small right pleural effusion. 5. Small hiatal hernia. 6. Cholelithiasis. Juan Leblanc MD Hepatobiliary Scan Nuclear Medicine 06/10/16 Signed Impressions: Service Date/Time: Friday, June 10, 2016 12:50 - CONCLUSION: 1. Scintigraphic findings suggesting hepatocellular dysfunction with sluggish washout and persistent background activity. 2. Due to limited excretion, it is difficult to identify the extrahepatic biliary tree. However, activity is seen in the small bowel by 10 minutes. 3. No scintigraphic findings of acute cholecystitis. Bob Lara MD Cholangiopancreatography MRI 06/10/16 Signed Impressions: Service Date/Time: Friday, June 10, 2016 12:25 - CONCLUSION: 1. Hepatosplenomegaly with significantly and inhomogeneously fatty infiltrated liver. 2. Slight ascites and bilateral pleural effusions. 3. Cholelithiasis and pericholecystic fluid and cholecystitis is not excluded. Mert Laurent MD Chest X-Ray 06/15/16 1259 Signed Impressions: Service Date/Time: Wednesday, June 15, 2016 13:21 - CONCLUSION: Slight worsening of right pleural effusion and right lung base consolidation, otherwise no change in left pleural effusion and probable mild case of pulmonary edema Mert Laurent MD Abdomen Ultrasound 06/14/16 Signed Impressions: Service Date/Time: Tuesday, June 14, 2016 09:13 - CONCLUSION: 1. Small volume ascites Jamaal Eastman MD Hepatobiliary Scan Nuclear Medicine 06/10/16 Signed Impressions: Service Date/Time: Friday, June 10, 2016 12:50 - CONCLUSION: 1. Scintigraphic findings suggesting hepatocellular dysfunction with sluggish washout and persistent background activity. 2. Due to limited excretion, it is difficult to identify the extrahepatic biliary tree. However, activity is seen in the small bowel by 10 minutes. 3. No scintigraphic findings of acute cholecystitis. Bob Lara MD Cholangiopancreatography MRI 06/10/16 Signed Impressions: Service Date/Time: Friday, June 10, 2016 12:25 - CONCLUSION: 1. Hepatosplenomegaly with significantly and inhomogeneously fatty infiltrated liver. 2. Slight ascites and bilateral pleural effusions. 3. Cholelithiasis and pericholecystic fluid and cholecystitis is not excluded. Mert Laurent MD Physical Exam GENERAL: Awake and alert, on nasal O2 SKIN: cool and dry, jaundiced, has spider angiomata in her upper chest HEENT: Normocephalic, atraumatic. [place] conjunctivae. LEA. Has less scleral icterus. Moist oral mucosa. NECK: Trachea midline. No JVD or lymphadenopathy. Supple, nontender, no meningeal signs. CARDIOVASCULAR: . Regular rate and rhythm without murmurs, gallops, or rubs. RESPIRATORY: decreased at the bases. No wheezing. Equal BS katie. GASTROINTESTINAL: Abdomen mildly distended, globular, soft and not tender. Bowel sounds present and normoactive. No guarding. No rebound. MUSCULOSKELETAL: Extremities without clubbing, cyanosis, or edema. No joint tenderness, effusion, or edema noted. No calf tenderness. NEUROLOGICAL: Non-focal PSYCH: Calm and cooperative LINE: PIV with no evidence of infection Assessment & Plan Remarks IMPRESSION Persistent leukocytosis, etiology, likely reactive - due to pulmonary process and steroids adding to it - no new infection identified - looks much improved Bilateral pulmonary infiltrates, due to HCAP Respiratory failure due to katie infiltrates One (+) BC with propionibacterium C/W contamination - skin arianna - can be pathogenic but usually in setting where hardware present ETOH hepatitis Diarrhea, C diff negative RECOMMENDATION To complete Ceftin 5/20 - complete Rx for PNA She is clinically stable and improving from ID standpoint Repeat CBC and follow CBC in 3-4 weeks Agree with plans For D/C today Explained plan to patient and Whit Rock MD July 06, 2016 08:38
[2016-07-06] MEDS: RESP: BUDESONIDE 0.5 MG/2 ML NEB NEB SCH (09:44)
[2016-07-06] MEDS: RESP: ALBUTEROL 2.5 MG/IPRATROPIUM 0.5 MG NEB (PRN) NEB (09:44)
[2016-07-06] MEDS: MORPHINE SULFATE 4 MG/ML INJ IV PUSH PRN (10:23)
[2016-07-06] MEDS: ONDANSETRON HCL 4 MG/2 ML VIAL IV PUSH PRN (10:23)
[2016-07-06] MEDS ORDERED: FURO40TA PO (14:08)
--- NOTE | 2016-07-07 17:08 | HHI.PR ---
Subjective Remarks late entry notes from 07/06 visit patient feels great, looking forward to going jud no nausea or vomiting, no abdominal discomfort no shortness of breath Objective Vitals I/O 07/06/16 07/06/16 07/06/16 07/07/16 07/07/16 07/07/16 07:00 15:00 23:00 07:00 15:00 23:00 Intake Total 120 ml Balance 120 ml Intake Oral 120 ml # Voids 1 # Bowel Movements 2 Result Diagram: 07/05/16 0435 07/05/16 0435 Imaging Last Impressions Chest X-Ray 07/05/16 0000 Signed Impressions: Service Date/Time: Tuesday, July 05, 2016 09:23 - CONCLUSION: 1. Diffuse bilateral infiltrates and bibasilar fusions stable compared to previous exam. Michele Chaudhary MD Lower Extremity Ultrasound 07/02/16 0000 Signed Impressions: Service Date/Time: Saturday, July 02, 2016 09:05 - CONCLUSION: No deep venous thrombosis in either lower extremity. Garret Verma MD Cyst Biopsy Asp-Paracentesis US 06/30/16 0000 Signed Impressions: Service Date/Time: June 10:55 - CONCLUSION: Uncomplicated ultrasound guided paracentesis. Garret Verma MD CT Angiography 06/26/16 0000 Signed Impressions: Service Date/Time: Sunday, June 26, 2016 15:16 - CONCLUSION: 1. Negative for pulmonary embolus. 2. Worsening bilateral dense air space consolidation in both lungs. 3. Relatively stable bilateral pleural effusions, right greater than left. 4. Diffuse liver disease with mild ascites and hepatic enlargement. Silvino Jordan MD Chest CT 06/21/16 0000 Signed Impressions: Service Date/Time: Tuesday, June 21, 2016 21:50 - CONCLUSION: Widespread areas of consolidation involving the lower lobes bilaterally and the upper lobes bilaterally. This is nonspecific. It could be infectious. There are moderate bilateral pleural effusions and mild ascites. Qasim Phillips MD Abdomen Ultrasound 06/17/16 0000 Signed Impressions: Service Date/Time: Friday, June 17, 2016 10:00 - CONCLUSION: There is not enough fluid for safe paracentesis.. Harish Chaudhary MD FACR Thoracentesis Ultrasound 06/16/16 0000 Signed Impressions: Service Date/Time: May 14:13 - CONCLUSION: Uncomplicated ultrasound guided thoracentesis. Qasim Osuna MD Abdomen/Pelvis CT 06/10/16 0651 Signed Impressions: Service Date/Time: Friday, June 10, 2016 07:22 - CONCLUSION: 1. Enlarged fatty liver. 2. Mild splenomegaly. 3. Small to moderate amount of ascites within the abdomen and pelvis. 4. Small right pleural effusion. 5. Small hiatal hernia. 6. Cholelithiasis. Juan Leblanc MD Hepatobiliary Scan Nuclear Medicine 06/10/16 0000 Signed Impressions: Service Date/Time: Friday, June 10, 2016 12:50 - CONCLUSION: 1. Scintigraphic findings suggesting hepatocellular dysfunction with sluggish washout and persistent background activity. 2. Due to limited excretion, it is difficult to identify the extrahepatic biliary tree. However, activity is seen in the small bowel by 10 minutes. 3. No scintigraphic findings of acute cholecystitis. Bob Lara MD Cholangiopancreatography MRI 06/10/16 0000 Signed Impressions: Service Date/Time: Friday, June 10, 2016 12:25 - CONCLUSION: 1. Hepatosplenomegaly with significantly and inhomogeneously fatty infiltrated liver. 2. Slight ascites and bilateral pleural effusions. 3. Cholelithiasis and pericholecystic fluid and cholecystitis is not excluded. Mert Laurent MD Objective Remarks awake and alert, oriented x 3 + icteresia no nuchal rigidity lungs decrease breath sounds regular rhythm, abdomen- soft, nontender, no guarding extremities no edema neuro exam- unremarkable Procedures 06/16- thoracentesis 500 cc out- transudate A/P Problem List: (1) Ascites ICD Code: R18.8 Status: Acute (2) Pleural effusion ICD Code: J90 Status: Acute (3) Sepsis ICD Code: A41.9 Status: Acute (4) Hyperbilirubinemia ICD Code: E80.6 Status: Acute (5) Pneumonia ICD Code: J18.9 Status: Acute Assessment and Plan 31 years old female EtOHism with liver cirrhosis - counselled extensively. very moitvated. good support system Hypertension On Lopressor 12.5mg BID for rate control. Echo showed EF 50-55%, no regional wall motion abnormality Acute hypoxemic respiratory failure, improved Continue with oxygen- qualified for home delivered to room per CM Bronchodilators ( DuoNeb every 6 hours, Pulmicort twice a day) 06/26 CTA chest : No PE, Worsening bilateral dense air space consolidation in both lungs. Diffuse liver disease with mild ascites and hepatic enlargement Status post thoracentesis 800 cc transudative right side 06/16 - Solumedrol 40 mg IV daily , tapered off. Cholelithiasis Abdominal ascites Elevated transaminases Elevated bilirubin Elevated anti-1 antitrypsin Diarrhea. Check C diff.- no further episodes 06/10 - MRCP - hepatosplenomegaly. - Ascites - cannot rule out cholecystitis 06/10 - HIDA scan - negative for cholecystitis Seen by gastroenterology. Negative hepatitis, AMA, ASMA, AMA and ceruloplasmin. Had signed off Currently on regular diet Hepatitis profile negative Continue pentoxifylline 400 mg by mouth 3 times a day 06/30 - therapeutic paracentesis -1800 cc Lasix 40 mg po daily Leukocytosis Macrocytic anemia change to po Ceftin 500 mg po bid till 07/09 BC from 06/26-NGTD, 06/28 negative sputum and urine cxs. Monitor for signs of infections ( Fever, WBC) 06/24 sputum cx, strep pneumonia and Legionella urinary Ag all negative Currently on Os-Zac twice a day Prophylaxis - GI - Protonix - Walker - DME delivered to rooml DC today d/w patient set up with PCP deeply appreicate CM assistance Problem Qualifiers (1) Ascites: Qualified Code: R18.8 - Other ascites (2) Sepsis: Qualified Code: A41.9 - Sepsis, due to unspecified organism Riley Howe MD July 07, 2016 17:08 d/w patient set up with PCP Problem Qualifiers (1) Ascites: Qualified Code: R18.8 - Other ascites (2) Sepsis: Qualified Code: A41.9 - Sepsis, due to unspecified organism Riley Howe MD July 07, 2016 17:08
--- NOTE | 2016-07-07 17:13 | HHI.DS ---
Discharge Summary Admission Date Jun 10, 2016 at 09:04 Discharge Date: July 06, 2016 Admitting Diagnosis hypokalemia, hyperbilirubinemia, vomiting (1) Ascites ICD Code: R18.8 Diagnosis: Principal (2) Pleural effusion ICD Code: J90 Diagnosis: Principal (3) Sepsis ICD Code: A41.9 Diagnosis: Principal (4) Hyperbilirubinemia ICD Code: E80.6 Diagnosis: Principal (5) Pneumonia ICD Code: J18.9 Procedures 06/16- thoracentesis 500 cc out- transudate Brief History - From Admission the patient is a 31-year-old female without significant past medical history who presented to [facility] ED for evaluation of a rash, cough, and worsening shortness of breath. Per records, the patient had several flea biters and then she subsequently developed a diffuse pruritic rash. She tried Calamine lotion, Benadryl and Tylenol without any significant relief. In addition, she reports abdominal pain where she described it as a tightness like in nature, decreased p.o. intake and several episodes of nonbloody emesis. She states that she feels cold all the time and denies having any fever or constitutional symptoms. She denies any melena or hematochezia. The patient is an active drinker where she drinks a pint of vodka on a daily basis. She has been doing this for the past three to four years. She denies any history of liver disease. On arrival to the ER, she had a low grade fever with temperature of 99.7, tachycardiac with heart rate of 120 to 130s. Her laboratory data is significant for lactic acidosis with a lactic acid level 4.6 which trended down to 3.7 with fluid resuscitation. Other significant labs showed elevated AST of 176 with hyperbilirubinemia. Her total bilirubin level measured at 7.2 and alkaline phosphatase of 344. Also, the patient was hypokalemic with a potassium level of 2.4 and had leukocytosis with a WBC of 18.4. Her alcohol level elevated at 19. Due to her abdominal pain, a CT scan of the abdomen and pelvis obtained which showed enlarged fatty liver, mild splenomegaly, small to moderate ascites, cholelithiasis and small hiatal hernia. In the ER, she was given approximately three liters of crystalloids, Zosyn and potassium replacement. The patient was seen by GI service in the ER and scheduled to undergo a HIDA scan and MRCP. She is on room air oxygen. The patient denies any chest pain, shortness of breath or edema of the lower extremities. CBC/BMP: 07/05/16 0435 07/05/16 0435 Significant Findings Laboratory Tests Test 07/05/16 04:35 White Blood Count 25.7 TH/MM3 (4.0-11.0) Red Blood Count 2.65 MIL/MM3 (4.00-5.30) Hemoglobin 8.7 GM/DL (11.6-15.3) Hematocrit 27.0 % (35.0-46.0) Mean Corpuscular Volume 101.9 FL (80.0-100.0) Platelet Count 132 TH/MM3 (150-450) Mean Platelet Volume 11.4 FL (7.0-11.0) Neutrophils (%) (Auto) 92.6 % (16.0-70.0) Lymphocytes (%) (Auto) 2.5 % (9.0-44.0) Neutrophils # (Auto) 23.8 TH/MM3 (1.8-7.7) Lymphocytes # (Auto) 0.6 TH/MM3 (1.0-4.8) Monocytes # (Auto) 1.2 TH/MM3 (0-0.9) Creatinine 0.44 MG/DL (0.50-1.00) Random Glucose 145 MG/DL (74-106) Calcium Level 8.2 MG/DL (8.5-10.1) Imaging Last Impressions Chest X-Ray 07/05/16 0000 Signed Impressions: Service Date/Time: Tuesday, July 05, 2016 09:23 - CONCLUSION: 1. Diffuse bilateral infiltrates and bibasilar fusions stable compared to previous exam. Michele Chaudhary MD Lower Extremity Ultrasound 07/02/16 0000 Signed Impressions: Service Date/Time: Saturday, July 02, 2016 09:05 - CONCLUSION: No deep venous thrombosis in either lower extremity. Garret Verma MD Cyst Biopsy Asp-Paracentesis US 06/30/16 0000 Signed Impressions: Service Date/Time: June 10:55 - CONCLUSION: Uncomplicated ultrasound guided paracentesis. Garret Verma MD CT Angiography 06/26/16 0000 Signed Impressions: Service Date/Time: Sunday, June 26, 2016 15:16 - CONCLUSION: 1. Negative for pulmonary embolus. 2. Worsening bilateral dense air space consolidation in both lungs. 3. Relatively stable bilateral pleural effusions, right greater than left. 4. Diffuse liver disease with mild ascites and hepatic enlargement. Silvino Jordan MD Chest CT 06/21/16 0000 Signed Impressions: Service Date/Time: Tuesday, June 21, 2016 21:50 - CONCLUSION: Widespread areas of consolidation involving the lower lobes bilaterally and the upper lobes bilaterally. This is nonspecific. It could be infectious. There are moderate bilateral pleural effusions and mild ascites. Qasim Phillips MD Abdomen Ultrasound 06/17/16 0000 Signed Impressions: Service Date/Time: Friday, June 17, 2016 10:00 - CONCLUSION: There is not enough fluid for safe paracentesis.. Harish Chaudhary MD FACR Thoracentesis Ultrasound 06/16/16 0000 Signed Impressions: Service Date/Time: May 14:13 - CONCLUSION: Uncomplicated ultrasound guided thoracentesis. Qasim Osuna MD Abdomen/Pelvis CT 06/10/16 0651 Signed Impressions: Service Date/Time: Friday, June 10, 2016 07:22 - CONCLUSION: 1. Enlarged fatty liver. 2. Mild splenomegaly. 3. Small to moderate amount of ascites within the abdomen and pelvis. 4. Small right pleural effusion. 5. Small hiatal hernia. 6. Cholelithiasis. Juan Leblanc MD Hepatobiliary Scan Nuclear Medicine 06/10/16 0000 Signed Impressions: Service Date/Time: Friday, June 10, 2016 12:50 - CONCLUSION: 1. Scintigraphic findings suggesting hepatocellular dysfunction with sluggish washout and persistent background activity. 2. Due to limited excretion, it is difficult to identify the extrahepatic biliary tree. However, activity is seen in the small bowel by 10 minutes. 3. No scintigraphic findings of acute cholecystitis. Bob Lara MD Cholangiopancreatography MRI 4/21/17 0000 Signed Impressions: Service Date/Time: Friday, June 10, 2016 12:25 - CONCLUSION: 1. Hepatosplenomegaly with significantly and inhomogeneously fatty infiltrated liver. 2. Slight ascites and bilateral pleural effusions. 3. Cholelithiasis and pericholecystic fluid and cholecystitis is not excluded. eMrt Laurent MD PE at Discharge awake and alert, oriented x 3 + icteresia no nuchal rigidity lungs decrease breath sounds regular rhythm, abdomen- soft, nontender, no guarding extremities no edema neuro exam- unremarkable Pt update on day of discharge awake and alert, very motivated with lifestyle changes and ff ups Hospital Course 31 years old female EtOHism with liver cirrhosis - counselled extensively. very moitvated. good support system Hypertension On Lopressor 12.5mg BID for rate control. Echo showed EF 50-55%, no regional wall motion abnormality Acute hypoxemic respiratory failure, improved Continue with oxygen- qualified for home delivered to room [facility] Bronchodilators ( DuoNeb every 6 hours, Pulmicort twice a day) 06/26 CTA chest : No PE, Worsening bilateral dense air space consolidation in both lungs. Diffuse liver disease with mild ascites and hepatic enlargement Status post thoracentesis 800 cc transudative right side 06/16 - Solumedrol 40 mg IV daily , tapered off Cholelithiasis Abdominal ascites Elevated transaminases Elevated bilirubin Elevated anti-1 antitrypsin Diarrhea. Check C diff.- no further episodes 06/10 - MRCP - hepatosplenomegaly. - Ascites - cannot rule out cholecystitis 06/10 - HIDA scan - negative for cholecystitis Seen by gastroenterology. Negative hepatitis, AMA, ASMA, AMA and ceruloplasmin. Had signed off Currently on regular diet Hepatitis profile negative Continue pentoxifylline 400 mg by mouth 3 times a day 06/30 - therapeutic paracentesis -1800 cc Lasix 40 mg po daily Leukocytosis Macrocytic anemia change to po Ceftin 500 mg po bid till 07/09 BC from 06/26-NGTD, 06/28 negative sputum and urine cxs. Monitor for signs of infections ( Fever, WBC) 06/24 sputum cx, strep pneumonia and Legionella urinary Ag all negative Currently on Os-Zac twice a day Prophylaxis - GI - Protonix - Walker - DME delivered to rooml DC today d/w patient set up with PCP deeply appreicate CM assistance Pt Condition on Discharge: Stable Discharge Disposition: Disch w/ Home Health Serv Discharge Time: <= 30 minutes Discharge Instructions DIET: Follow Instructions for: Heart Healthy Diet Speech Therapy-Diet Recommends: Regular Activities you can perform: Weight Bearing as Deana Follow up Referrals: Gastroenterology - 2 Weeks PCP Follow-up - 3-5 Days Pulmonology - 1 Week Pulmonology - 07/12/16 with Tomi Mckeon MD New Orders: BASIC METABOLIC PROF - 07/08/16 New Medications: Albuterol 18 GM Inh (Ventolin Hfa 18 GM Inh) 90 Mcg/Act Aer 2 PUFF INH Q4-6H PRN SHORTNESS OF BREATH #1 Ref 0 INHALER Fluticasone Powder Inh (Flovent Diskus Inh) 100 Mcg/Blist Aerp 100 MCG INH BID Shortness of Breath #1 INHALER Ipratropium HFA 12.9 GM Inh (Atrovent HFA 12.9 GM Inh) 17 Mcg/Act Aer 2 PUFF INH QID Shortness of Breath #1 Ref 0 INHALER Oxygen tank (Oxygen tank) 1 Ea Tank 2 LITER KEVAN[employer] CONTINUOUS Oxygen Concentrator Portable Gaseous 2 L/min via Nasal Cannula Continuous For 99 months HYPOXEMIA PREVENTION #2 CYLINDER Walker Rolling/GetGo (Walker Rolling/GetGo) 1 Mis Mis 1 EA .ROUTE DIRECTED #1 EA Cefuroxime (Ceftin) 500 Mg Tab 500 MG PO Q12HR infection #12 TAB Folic Acid (Folate) 1 Mg Tab 1 MG PO DAILY mvt #30 TAB Furosemide (Furosemide) 40 Mg Tab 40 MG PO DAILY asc Days 30 TAB Lorazepam (Ativan) 0.5 Mg Tab 0.5 MG PO Q8HR PRN MODERATE TO SEVERE ANXIETY #10 TAB Metoprolol Tartrate (Metoprolol Tartrate) 25 Mg Tab 12.5 MG PO Q12HR Blood Pressure Management #60 TAB Oxycodone (Oxycodone) 5 Mg Tab 5 MG PO Q6H PRN PAIN 1 TO 10 AND/OR AGITATION #20 TAB Oyster Shell (Oyster Shell Calcium) 500 Mg Tab 500 MG PO BID hypocalcemia #30 TAB Pantoprazole (Pantoprazole) 40 Mg Tab 40 MG PO DAILY gerd #30 TAB Pentoxifylline ER (Pentoxifylline ER) 400 Mg Tab 400 MG PO Q8HR ascites #90 TAB Rifaximin (Xifaxan) 550 Mg Tab 550 MG PO BID ascites #60 TAB Thiamine (Vitamin B-1) 100 Mg Tab 100 MG PO DAILY mvt #30 TAB Riley Howe MD July 07, 2016 17:13
--- NOTE | 2016-07-13 10:58 | PQ ---
Physician Query Response Document PATIENT: FABIOLA XIE : 1985 ADMIT DATE: 06/10/2016 9:04 AM DISCH DATE: 07/06/2016 3:39 PM RESPONDING PROVIDER #: Rian QUERY TEXT: Conflicting Documentation Clarification A single mention or documentation of multiple diagnoses for the same clinical presentation appears in the record. Please clarify the diagnosis/diagnoses. Please also document if the condition is: -- Confirmed and current -- Confirmed, treated and resolved -- Ruled out -- Other, please specify The patient's Clinical Indicators include: Gastroenterology is stating SEPSIS progress note 06/14/16 (ROSEANNE Brown) : - Sepsis Criteria, Le ukocytosis, Lactic acidosis. Abn. U/A, Urine Cx pending. Nasal washing (-) for FLU A/B, BCx pending . CXR okay. HIDA okay. Documentation from the attending states SIRS progress note 06/14/16) - SIRS- tachypneic- tachycardic 5mg Librium QID- decrease to bid PRN Lorazepam Follow for stabilization then wean as tolerated Thiamine Folic Acid check CXR, ABG On Admission Patient VS : temp 99.7, HR 108, Resp 18, B/P 120/71, Pulse Ox 95% (room air) Labs on admission: lactic acid 4.6, on repeat 3.7, WBC 18.4, AST 176, ALT 35 Query created by: Macarena Parker on 06/15/2016 2:33 PM RESPONSE TEXT: Sepsis - clinically present on admission secondary to HCAP with bilateral infiltrates with leukocytos is, tachycardia Electronically signed by: Riley Howe MD 07/13/2016 10:55 AM
== END 2016-07-06 15:39 | disposition home health service (06) | DRG 871 ==
LOC: NEPC 03:47 → NEDA 09:04 → HIMN 15:00 → N07A 06-11 17:34 → HIME 06-21 13:20 → HOCA 07-01 15:07
PROVIDERS: ADMIT Internal Medicine; ATTEND Internal Medicine
PROC: 0W993ZX Drainage of Right Pleural Cavity, Percutaneous Approach, Diagnostic (ICD-10-PCS; principal; 2016-06-16)
PROC: 3E0F7GC Introduction of Other Therapeutic Substance into Respiratory Tract, Via Natural or Artificial Opening (ICD-10-PCS; 2016-06-22)
PROC: 5A09357 Assistance with Respiratory Ventilation, Less than 24 Consecutive Hours, Continuous Positive Airway Pressure (ICD-10-PCS; 2016-06-23)
PROC: 0W9G3ZX Drainage of Peritoneal Cavity, Percutaneous Approach, Diagnostic (ICD-10-PCS; 2016-06-30)
DX: A41.9 Sepsis, unspecified organism (principal); J96.01 Acute respiratory failure with hypoxia; J90 Pleural effusion, not elsewhere classified; E87.4 Mixed disorder of acid-base balance; J18.9 Pneumonia, unspecified organism; D68.9 Coagulation defect, unspecified; F10.231 Alcohol dependence with withdrawal delirium; E87.1 Hypo-osmolality and hyponatremia; K70.11 Alcoholic hepatitis with ascites; K76.0 Fatty (change of) liver, not elsewhere classified; R16.2 Hepatomegaly with splenomegaly, not elsewhere classified; R21 Rash and other nonspecific skin eruption; F41.9 Anxiety disorder, unspecified; Z87.891 Personal history of nicotine dependence; Z23 Encounter for immunization; K80.20 Calculus of gallbladder without cholecystitis without obstruction; E87.6 Hypokalemia; K44.9 Diaphragmatic hernia without obstruction or gangrene; R19.7 Diarrhea, unspecified; L98.9 Disorder of the skin and subcutaneous tissue, unspecified; E87.70 Fluid overload, unspecified; K74.60 Unspecified cirrhosis of liver; E83.39 Other disorders of phosphorus metabolism; E88.09 Other disorders of plasma-protein metabolism, not elsewhere classified; D53.9 Nutritional anemia, unspecified; E83.42 Hypomagnesemia; E83.51 Hypocalcemia; E86.0 Dehydration; Z96.651 Presence of right artificial knee joint; Y95 Nosocomial condition
CPT/HCPCS: 32555; 36600; 49083; 71010; 71020; 71250; 71275; 74177; 74181; 76377; 76705; 76937; 78226; 80048; 80053; 80074; 80076; 80307; 81001; 82103; 82105; 82140; 82150; 82247; 82248; 82306; 82390; 82652; 82728; 82805; 82945; 82948; 83520; 83540; 83550; 83605; 83615; 83690; 83735; 83880; 83986; 84100; 84155; 84157; 84702; 84703; 85007; 85025; 85027; 85610; 85730; 86038; 86256; 86703; 87015; 87040; 87070; 87086; 87102; 87116; 87185; 87205; 87206; 87328; 87329; 87449; 87493; 87506; 87641; 87804; 89051; 90686; 90732; 93306; 93308; 93970; 94002; 94003; 94150; 94620; 94640; 94664; 94667; 94668; 96365; 96366; 96368; A9537; C1729; C9113; J0696; J1644; J1940; J1956; J2060; J2270; J2405; J2543; J2920; J2930; J3370; J3475; J3480; J7030; J7042; J7050; J7626; J7644; P9047; Q2038; Q9967

== ENCOUNTER 2016-07-09 14:40 | Inpatient (IN) | payer MEDICAID ==
[~2016-07-09] VITALS: Ht 170.2 cm; Wt 78.0 kg
[2016-07-09] VITALS (8 sets, daily range): BP systolic 90–110; BP diastolic 55–64; PULSE 91–106; RESP 16–42; TEMP 98–98.9; O2SAT 93–97
[~2016-07-09 14:40] MED LIST: CEFT500T3 PO; FLUT100A INH; FOLI1TAB4 PO; FURO40TA PO; GETGO ROLLING W1 MI1; IPRA17I INH; LORA-392 PO; METO25TA3 PO; OXYC-392 PO; OXYGENTANK NAS.CANULA; OYST500T11 PO; PANT40TA3 PO; PENT400T PO; VENTAER INH; VITA100T2 PO; XIFA550T4 PO
--- NOTE | 2016-07-09 15:23 | PD ---
HPI Chief Complaint: Respiratory Symptoms Time Seen by Provider: 15:10 Travel History International Travel<30 days: No Contact w/Intl Traveler<30days: No Traveled to known affect area: No History of Present Illness HPI 31-year-old female was sent here for evaluation of abnormal outpatient chest x- ray. This patient was recently admitted on June 10, 2016. She was eventually found to have liver cirrhosis secondary to alcohol use, acute hypoxemic respiratory failure, abdominal ascites, pleural effusion, pneumonia. She was discharged to continue on home oxygen, bronchodilators, outpatient cefuroxime, rifaximin, Lasix. She was discharged 3 days ago. Home health care came by yesterday and ordered an outpatient chest x-ray. They were called today and told that the chest x-ray was abnormal and to return here for further evaluation. She denies any worsening in her symptoms. She endorses generalized fatigue, dyspnea with exertion which has been ongoing. She endorses a cough with some clear and yellow sputum which is not new or worsened. Denies any fevers or chills, new abdominal pain. She has been using her medication as prescribed. She is supposed to follow up with her new primary care physician Dr. Bolanos in 2 days. No other complaints. PFSH Past Medical History Anxiety: Yes Cardiovascular Problems: No Diminished Hearing: No Musculoskeletal: No Neurologic: No Respiratory: No (pna) ?: Not Social History Alcohol Use: Yes Tobacco Use: No (quit a while ago) Substance Use: No Allergies-Medications (Allergen,Severity, Reaction): Coded Allergies: No Known Allergies (Unverified , 07/09/16) Reported Meds & Prescriptions Reported Meds & Active Scripts Active Furosemide 40 Mg Tab 40 Mg PO DAILY 30 Days Ventolin Hfa 18 GM Inh (Albuterol Sulfate) 90 Mcg/Act Aer 2 Puff INH Q4-6H PRN Atrovent HFA 12.9 GM Inh (Ipratropium [place]) 17 Mcg/Act Aer 2 Puff INH QID Flovent Diskus Inh (Fluticasone Powder Inh) 100 Mcg/Blist Aerp 100 Mcg INH BID Ativan (Lorazepam) 0.5 Mg Tab 0.5 Mg PO Q8HR PRN Pentoxifylline ER (Pentoxifylline) 400 Mg Tab 400 Mg PO Q8HR Xifaxan (Rifaximin) 550 Mg Tab 550 Mg PO BID Vitamin B-1 (Thiamine HCl) 100 Mg Tab 100 Mg PO DAILY Pantoprazole (Pantoprazole Sodium) 40 Mg Tab 40 Mg PO DAILY Oyster Shell Calcium (Oyster Shell) 500 Mg Tab 500 Mg PO BID Oxycodone (Oxycodone HCl) 5 Mg Tab 5 Mg PO Q6H PRN Metoprolol Tartrate 25 Mg Tab 12.5 Mg PO Q12HR Folate (Folic Acid) 1 Mg Tab 1 Mg PO DAILY Ceftin (Cefuroxime Axetil) 500 Mg Tab 500 Mg PO Q12HR Review of Systems Except as stated in HPI: all other systems reviewed are Neg Physical Exam Narrative GENERAL: Chronically ill-appearing female in no acute distress, somewhat tachypneic. SKIN: Warm and dry. HEAD: Atraumatic. Normocephalic. EYES: Pupils equal and round. No scleral icterus. No injection or drainage. ENT: No nasal bleeding or discharge. Mucous membranes pink and moist. NECK: Trachea midline. No JVD. CARDIOVASCULAR: Regular rate and rhythm. No murmur appreciated. RESPIRATORY: No accessory muscle use. Some crackles noted at the bases. No wheezing. GASTROINTESTINAL: Abdomen soft, non-tender, nondistended. Hepatic and splenic margins not palpable. MUSCULOSKELETAL: No obvious deformities. 2+ lower extremity edema bilaterally. NEUROLOGICAL: Awake and alert. No obvious cranial nerve deficits. Motor grossly within normal limits. Normal speech. PSYCHIATRIC: Appropriate mood and affect; insight and judgment normal. Data Data Last Documented VS Vital Signs Date Time Temp Pulse Resp B/P Pulse Ox O2 Delivery O2 Flow Rate FiO2 07/09/16 15:59 95 42 96 2 07/09/16 14:44 98.3 109/55 Nasal Cannula Orders Chest, Pa & Lat (07/09/16 ) Electrocardiogram (07/09/16 ) Complete Blood Count With Diff (07/09/16 15:15) Comprehensive Metabolic Panel (07/09/16 15:15) Magnesium (Mg) (07/09/16 15:15) Act Partial Throm Time (Ptt) (07/09/16 15:15) Prothrombin Time / Inr (Pt) (07/09/16 15:15) Vascular Access Team Consult/P PRN (07/09/16 15:29) Vascular Poc Ultrasound (07/09/16 ) Lactic Acid Sepsis Protocol (07/09/16 15:47) Blood Culture (07/09/16 15:47) Cefepime Inj (Maxipime Inj) (07/09/16 16:00) Azithromycin Inj (Zithromax Inj) (07/09/16 16:00) Admit Order (Ed Use Only) (07/09/16 16:11) Admit To Inpatient (07/09/16 ) Code Status (07/09/16 16:21) Vital Signs (Adult) Q4H (07/09/16 16:21) Activity Oob Ad Josie (07/09/16 16:21) Technologist Development / Telemetry .CONTINUOUS (07/09/16 16:21) Intake + Output THAD.QSHIFT (07/09/16 16:21) Notify Dr: Other (07/09/16 16:21) Diet Heart Healthy (07/09/16 Dinner) Sodium Chloride 0.9% Flush (Ns Flush) (07/09/16 16:30) Sodium Chloride 0.9% Flush (Ns Flush) (07/09/16 21:00) Acetaminophen (Tylenol) (07/09/16 16:30) Ondansetron Inj (Zofran Inj) (07/09/16 16:30) Bisacodyl Supp (Dulcolax Supp) (07/09/16 16:30) Docusate Sodium (Colace) (07/09/16 17:00) Resp Oxygen Rayo C Titrat 1-4 L (07/09/16 ) Pt Request For Service (07/09/16 16:21) Case Management Consult (07/09/16 16:21) Scd Bilateral/Knee High THAD.BID (07/09/16 16:21) Naloxone Inj (Narcan Inj) (07/09/16 16:30) Inpatient Certification (07/09/16 ) Labs Laboratory Tests Test 07/09/16 16:16 White Blood Count 18.6 TH/MM3 Red Blood Count 3.04 MIL/MM3 Hemoglobin 10.2 GM/DL Hematocrit 30.5 % Mean Corpuscular Volume 100.6 FL Mean Corpuscular Hemoglobin 33.7 PG Mean Corpuscular Hemoglobin 33.5 % Concent Red Cell Distribution Width 16.0 % Platelet Count 165 TH/MM3 Mean Platelet Volume 11.2 FL Neutrophils (%) (Auto) 89.2 % Lymphocytes (%) (Auto) 5.0 % Monocytes (%) (Auto) 4.7 % Eosinophils (%) (Auto) 0.9 % Basophils (%) (Auto) 0.2 % Neutrophils # (Auto) 16.6 TH/MM3 Lymphocytes # (Auto) 0.9 TH/MM3 Monocytes # (Auto) 0.9 TH/MM3 Eosinophils # (Auto) 0.2 TH/MM3 Basophils # (Auto) 0.0 TH/MM3 CBC Comment DIFF FINAL Differential Comment Prothrombin Time 15.9 SEC Prothromb Time International 1.4 RATIO Ratio Activated Partial 28.8 SEC Thromboplast Time MDM Medical Decision Making Medical Screen Exam Complete: Yes Emergency Medical Condition: Yes Medical Record Reviewed: Yes Interpretation(s) Chest x-ray CONCLUSION: Diffuse consolidation and bilateral pleural effusions likely representing pulmonary edema. When compared to the prior examination, these findings are worse. Differential Diagnosis Pneumonia, pulmonary edema, pleural effusion, pulmonary embolism Narrative Course 31-year-old female recently admitted for pleural effusion, pneumonia, cirrhosis presents after having an abnormal outpatient chest x-ray. On initial examination she is somewhat tachypneic, mild crackles at the bases. Plan is for basic lab work, chest x-ray. Chest x-ray is clearly worse than previous with diffuse consolidation and bilateral pleural effusions. The patient was given broad-spectrum antibiotics to cover for hospital-acquired pneumonia. She is being admitted for further management. Sepsis Criteria SIRS Criteria (2 or more): Heart rate over 90, WBC > 98273, < 4000 or > 10% bands Sepsis Criteria (SIRS+source): Infect source susp/known Diagnosis Primary Impression: Pneumonia Qualified Code: J18.9 - Pneumonia of both lungs due to infectious organism, unspecified part of lung Additional Impression: Sepsis Qualified Code: A41.9 - Sepsis, due to unspecified organism Admitting Information Admitting Physician Requests: Admit Mal Thrasher July 09, 2016 15:23
[2016-07-09] MEDS ORDERED: CEFEPIME INJ 2,000 MG in SODIUM CHLORIDE 0.9% INJ 100 ML IV ONE (16:00)
[2016-07-09] MEDS ORDERED: AZITHROMYCIN INJ 500 MG in SODIUM CHLOR 0.9% 250 ML INJ 250 ML IV ONE (16:00)
--- NOTE | 2016-07-09 16:15 | RADRPT ---
EXAM DATE/TIME: 07/09/2016 15:28 [place] COMPARISON: CHEST SINGLE AP, July 05, 2016, 9:23. CHEST PA & LAT, June 18, 2016, 10:37. INDICATIONS : Shortness of breath and cough. MEDICAL HISTORY : None. SURGICAL HISTORY : None. ENCOUNTER: Initial ACUITY: 3 weeks PAIN SCORE: 0/10 LOCATION: Bilateral chest FINDINGS: The heart size is upper limits of normal. The lungs demonstrate diffuse consolidation. There are bi lateral pleural effusions being worse on the left. The effusions are seen on the frontal view over t he upper lungs on the supine chest x-ray. CONCLUSION: Diffuse consolidation and bilateral pleural effusions likely representing pulmonary edema. When comp ared to the prior examination, these findings are worse. Qasim Phillips MD on July 09, 2016 at 16:03 Board Certified Radiologist. This report was verified electronically.
--- NOTE | 2016-07-09 16:20 | HHI.HP ---
[facility] Service [place] [facility] Primary Care Physician No Primary Care Physician Admission Diagnosis Diagnoses: Chief Complaint: Readmission Travel History International Travel<30 Days: No Contact w/Intl Traveler <30 Da: No Traveled to Known Affected Are: No History of Present Illness This is a pleasant 31 y/o Female who was recently admitted on June 10 due to Hypokalemia Hyperbilirubinemia and vomit, discharged three days ago July 06, diagnosis of Ascites, Pleural Effusion, Sepsis, Hyperbilirubinemia, Pneumonia, she had Thoracentesis obtained 500 ml of transudate, on last admission she had worsening SOB, rash, she said was a pint of vodka on daily basis, had Hyperbilirubinemia, CT abdomen and pelvis demonstrated enlarged fatty liver, mild splenomegaly, small to moderate ascites, cholelithiasis and small hiatal Hernia, On this opportunity she was sent due to abnormal outpatient CXR, she has Cirrhosis secondary to alcohol abuse, acute hypoxemic respiratory failure, Discharged on Outpatient Cefuroxime She denied any worsening in her symptoms. She endorses generalized fatigue, dyspnea with exertion which has been ongoing. She endorses a cough with some clear and yellow sputum which is not new or worsened. Denies any fevers or chills, new abdominal pain. She has been using her medication as prescribed. She is been seen in Emergency room, has distended abdomen, Moderate respiratory distress, bilateral leg edema, states she was with her and her son at home and after Home Health care came to see her was sent a CXR that was abnormal and was sent to ER for evaluation. Review of Systems Respiratory: COMPLAINS OF: Shortness of breath Past Family Social History Past Medical History Pneumonia Alcoholic hepatitis Anemia Tobacco dependence Alcohol abuse Ascites Pleural effusion Hypertension Past Surgical History Right arthroscopic surgery Reported Medications Albuterol 18 GM Inh (Ventolin Hfa 18 GM Inh) 90 Mcg/Act Aer 2 PUFF INH Q4-6H PRN SHORTNESS OF BREATH #1 Ref 0 INHALER Fluticasone Powder Inh (Flovent Diskus Inh) 100 Mcg/Blist Aerp 100 MCG INH BID Shortness of Breath #1 INHALER Ipratropium HFA 12.9 GM Inh (Atrovent HFA 12.9 GM Inh) 17 Mcg/Act Aer 2 PUFF INH QID Shortness of Breath #1 Ref 0 INHALER Oxygen tank (Oxygen tank) 1 Ea Tank 2 LITER KEVAN.CANULA CONTINUOUS Oxygen Concentrator Portable Gaseous 2 L/min via Nasal Cannula Continuous For 99 months HYPOXEMIA PREVENTION #2 CYLINDER Walker Rolling/GetGo (Walker Rolling/GetGo) 1 Mis Mis 1 EA .ROUTE DIRECTED #1 EA Cefuroxime (Ceftin) 500 Mg Tab 500 MG PO Q12HR infection #12 TAB Folic Acid (Folate) 1 Mg Tab 1 MG PO DAILY mvt #30 TAB Furosemide (Furosemide) 40 Mg Tab 40 MG PO DAILY asc Days 30 TAB Lorazepam (Ativan) 0.5 Mg Tab 0.5 MG PO Q8HR PRN MODERATE TO SEVERE ANXIETY #10 TAB Metoprolol Tartrate (Metoprolol Tartrate) 25 Mg Tab 12.5 MG PO Q12HR Blood Pressure Management #60 TAB Oxycodone (Oxycodone) 5 Mg Tab 5 MG PO Q6H PRN PAIN 1 TO 10 AND/OR AGITATION #20 TAB Oyster Shell (Oyster Shell Calcium) 500 Mg Tab 500 MG PO BID hypocalcemia #30 TAB Pantoprazole (Pantoprazole) 40 Mg Tab 40 MG PO DAILY gerd #30 TAB Pentoxifylline ER (Pentoxifylline ER) 400 Mg Tab 400 MG PO Q8HR ascites #90 TAB Rifaximin (Xifaxan) 550 Mg Tab 550 MG PO BID ascites #60 TAB Thiamine (Vitamin B-1) 100 Mg Tab 100 MG PO DAILY mvt #30 TAB Allergies: Coded Allergies: No Known Allergies (Unverified , 07/09/16) Active Ordered Medications Current Medications Medications (Trade) Dose Ordered Sig/Deni Route Start Time Stop Time Status Last Admin (NS Flush) 2 ml UNSCH PRN IV FLUSH 07/09/16 16:30 (NS Flush) 2 ml BID IV FLUSH 07/09/16 21:00 (Tylenol) 650 mg Q4H PRN PO 07/09/16 16:30 (Zofran Inj) 4 mg Q6H PRN IVP 07/09/16 16:30 07/09/16 16:54 (Dulcolax Supp) 10 mg DAILY PRN RECTAL 07/09/16 16:30 (Colace) 100 mg Q12H PO 07/09/16 17:00 07/09/16 17:02 (Narcan Inj) 0.4 mg UNSCH PRN IV 07/09/16 16:30 Guaifenesin 600 mg 600 mg BID PO 07/09/16 21:00 Azithromycin 500 mg/Sodium Chloride 250 ml @ 250 mls/hr Q24H IV 07/10/16 09:00 (Maxipime Inj/NS Inj) 100 ml @ 200 mls/hr Q8H IV 07/09/16 23:00 (Folate) 1 mg DAILY PO 07/10/16 09:00 (Lasix) 40 mg DAILY PO 07/10/16 09:00 (Spiriva Inh) 18 mcg DAILY INH 07/10/16 09:00 (Ativan) 0.5 mg Q8HR PRN PO 07/09/16 17:00 (Protonix) 40 mg DAILY PO 07/10/16 09:00 (TRENtal SR) 400 mg Q8HR PO 07/09/16 22:00 (Xifaxan) 550 mg BID PO 07/09/16 21:00 (Flovent Hfa 110 Mcg Inh) 1 puff BID INH 07/09/16 21:00 (Vitamin B1) 100 mg DAILY PO 07/10/16 09:00 Family History grew in a [place] house. Social History Lives with her and son, has not been smoking or drinking alcohol from the last one month and denies other toxic habits. Physical Exam Vital Signs Vital Signs Date Time Temp Pulse Resp B/P Pulse Ox O2 Delivery O2 Flow Rate FiO2 07/09/16 15:59 95 42 96 2 07/09/16 14:44 98.3 96 20 109/55 94 Nasal Cannula 4 Physical Exam GENERAL: denotes chronic illness, moderate respiratory difficulty SKIN: Ecchymosis on both arms and legs. HEAD: Atraumatic. Normocephalic. No temporal or scalp tenderness. EYES: Pupils equal round and reactive. Extraocular motions intact. scleral icteric. ENT: Nose without bleeding, purulent drainage or septal hematoma. Throat without erythema, tonsillar hypertrophy or exudate. Uvula midline. Airway patent. NECK: Trachea midline. No JVD or lymphadenopathy. Supple, nontender, no meningeal signs. CARDIOVASCULAR: Regular rate and rhythm without murmurs, gallops, or rubs. tachycardic RESPIRATORY: Decreased breath sounds bilateral, no wheezing, inspiratory crackles on both bases. GASTROINTESTINAL: Abdomen soft, non-tender, Distended. MUSCULOSKELETAL: Extremities without clubbing, cyanosis, Edema 3+ NEUROLOGICAL: Awake and alert. No focal deficits. Imaging Last Impressions Chest X-Ray 07/09/16 0000 Signed Impressions: Service Date/Time: Monday, July 09, 2016 15:28 - CONCLUSION: Diffuse consolidation and bilateral pleural effusions likely representing pulmonary edema. When compared to the prior examination, these findings are worse. Qasim Phillips MD Assessment and Plan Assessment and Plan 1. Health Care Associated Pneumonia, started on Cefepime and Azithromycin sputum culture, Blood culture, Legionella antigen, Pneumococcal antigen, credit support specialist consult. Bronchodilator, Mucolytic, incentive spirometry May need Intensive care if got worse during the night. 2. Alcoholic hepatitis not drinking alcohol since one month ago, strongly recommended to stop drinking 3. Anemia Macrocytic. 4. tobacco dependence as per patient she smoked one pack every two weeks. strongly recommended to stop smoking. 5. Hypertension continue Lopressor 12.5 mg BID, echo showed 50-55% no regional wall motion abnormality 6. Status post acute Hypoxemic respiratory failure, Improved, Bronchodilator, Mucolytic and incentive spirometry 06/26 CTA chest : No PE, Worsening bilateral dense air space consolidation in both lungs. Diffuse liver disease with mild ascites and hepatic enlargement Status post thoracentesis 800 cc transudative right side 06/16 - Solumedrol 40 mg IV daily , tapered, continue to taper - change to po on DC 7. Cholelithiasis/Ascites 06/10 - MRCP - hepatosplenomegaly. - Ascites - cannot rule out cholecystitis 06/10 - HIDA scan - negative for cholecystitis Seen by gastroenterology. Negative hepatitis, AMA, ASMA, AMA and ceruloplasmin. Hepatitis profile negative Continue pentoxifylline 400 mg by mouth 3 times a day 06/30 - therapeutic paracentesis -1800 cc Lasix 40 mg daily Currently on Os-Zac twice a day Prophylaxis - GI - Protonix, DVT prophylaxis with Heparin 5000 units every 12 hours and following Heart healthy diet. Code Status Full Code. Discussed Condition With Patient and ER PA Physician Certification 2 Midnight Certification Type: Admission for Inpatient Services Order for Inpatient Services The services are ordered in accordance with Medicare regulations or non- Medicare payer requirements, as applicable. In the case of services not specified as inpatient-only, they are appropriately provided as inpatient services in accordance with the 2-midnight benchmark. Estimated LOS (days): 3 days is the estimated time the patient will need to remain in the hospital, assuming treatment plan goals are met and no additional complications. Post-Hospital Plan: Not yet determined Tai Huerta MD July 09, 2016 16:20
[2016-07-09 16:24] LABS: AUTOMATED NEUTROPHIL # 16.6 TH/MM3 (1.8-7.7); BASOPHIL % 0.2 % (0.0-2.0); EOSINOPHIL # 0.2 TH/MM3 (0-0.4); EOSINOPHIL % 0.9 % (0.0-4.0); HEMATOCRIT 30.5 % (35.0-46.0); HEMO FLAGS DIFF FINAL; LYMPHOCYTE # 0.9 TH/MM3 (1.0-4.8); MEAN CELL VOLUME 100.6 FL (80.0-100.0); MEAN CORPUSCULAR HEMOGLOBIN 33.7 PG (27.0-34.0); MEAN CORPUSCULAR HGB CONC 33.5 % (32.0-36.0); MONO % 4.7 % (0.0-8.0); NEUT % 89.2 % (16.0-70.0); PLATELET COUNT 165 TH/MM3 (150-450); RED BLOOD COUNT 3.04 MIL/MM3 (4.00-5.30); WHITE BLOOD COUNT 18.6 TH/MM3 (4.0-11.0)
[2016-07-09] MEDS ORDERED: NALOXONE HCL 0.4 MG/ML AMP IV PRN (16:30)
[2016-07-09] MEDS ORDERED: ACETAMINOPHEN 325 MG TAB PO PRN (16:30)
[2016-07-09] MEDS ORDERED: BISACODYL 10 MG SUPP RECTAL PRN (16:30)
--- NOTE | 2016-07-09 16:33 | PD ---
Data Data Last Documented VS Vital Signs Date Time Temp Pulse Resp B/P Pulse Ox O2 Delivery O2 Flow Rate FiO2 07/09/16 15:59 95 42 96 2 07/09/16 14:44 98.3 109/55 Nasal Cannula Orders Chest, Pa & Lat (07/09/16 ) Electrocardiogram (07/09/16 ) Complete Blood Count With Diff (07/09/16 15:15) Comprehensive Metabolic Panel (07/09/16 15:15) Magnesium (Mg) (07/09/16 15:15) Act Partial Throm Time (Ptt) (07/09/16 15:15) Prothrombin Time / Inr (Pt) (07/09/16 15:15) Vascular Access Team Consult/P PRN (07/09/16 15:29) Vascular Poc Ultrasound (07/09/16 ) Lactic Acid Sepsis Protocol (07/09/16 15:47) Blood Culture (07/09/16 15:47) Cefepime Inj (Maxipime Inj) (07/09/16 16:00) Azithromycin Inj (Zithromax Inj) (07/09/16 16:00) Admit Order (Ed Use Only) (07/09/16 16:11) Admit To Inpatient (07/09/16 ) Code Status (07/09/16 16:21) Vital Signs (Adult) Q4H (07/09/16 16:21) Activity Oob Ad Josie (07/09/16 16:21) Bar Porter / Telemetry .CONTINUOUS (07/09/16 16:21) Intake + Output THAD.QSHIFT (07/09/16 16:21) Notify Dr: Other (07/09/16 16:21) Diet Heart Healthy (07/09/16 Dinner) Sodium Chloride 0.9% Flush (Ns Flush) (07/09/16 16:30) Sodium Chloride 0.9% Flush (Ns Flush) (07/09/16 21:00) Acetaminophen (Tylenol) (07/09/16 16:30) Ondansetron Inj (Zofran Inj) (07/09/16 16:30) Bisacodyl Supp (Dulcolax Supp) (07/09/16 16:30) Docusate Sodium (Colace) (07/09/16 17:00) Resp Oxygen Rayo C Titrat 1-4 L (07/09/16 ) Pt Request For Service (07/09/16 16:21) Case Management Consult (07/09/16 16:21) Scd Bilateral/Knee High THAD.BID (07/09/16 16:21) Naloxone Inj (Narcan Inj) (07/09/16 16:30) Inpatient Certification (07/09/16 ) Labs Laboratory Tests Test 07/09/16 16:16 White Blood Count 18.6 TH/MM3 Red Blood Count 3.04 MIL/MM3 Hemoglobin 10.2 GM/DL Hematocrit 30.5 % Mean Corpuscular Volume 100.6 FL Mean Corpuscular Hemoglobin 33.7 PG Mean Corpuscular Hemoglobin 33.5 % Concent Red Cell Distribution Width 16.0 % Platelet Count 165 TH/MM3 Mean Platelet Volume 11.2 FL Neutrophils (%) (Auto) 89.2 % Lymphocytes (%) (Auto) 5.0 % Monocytes (%) (Auto) 4.7 % Eosinophils (%) (Auto) 0.9 % Basophils (%) (Auto) 0.2 % Neutrophils # (Auto) 16.6 TH/MM3 Lymphocytes # (Auto) 0.9 TH/MM3 Monocytes # (Auto) 0.9 TH/MM3 Eosinophils # (Auto) 0.2 TH/MM3 Basophils # (Auto) 0.0 TH/MM3 CBC Comment DIFF FINAL Differential Comment MDM Supervised Visit with JANETH: Yes Narrative Course I, Dr. Leggett, have reviewed the advance practice practioner's documentation and am in agreement, met with the patient face to face, made the diagnosis, and the medical decision making was done by me. *My assessment and Findings: [31-year-old female here with complaint of abnormal chest x-ray. Admitted from 06/10 through 07/06 with hepatic cirrhosis, related to alcoholism, hypoxemic respiratory failure with ascites and pneumonia status post thoracentesis. Discharged home on home oxygen and Ceftin, do to discontinue today. She is only been home 3 days it has been feeling at baseline since discharge. Home health however did a chest x-ray today that was worsened prompting her ER visit. No fevers or chills. On exam patient is chronically ill-appearing,'s older than stated age. She is minimally jaundiced on exam, this isn't documented in the past. She has however tachypneic despite clear lung sounds. She's had a PE study previously that was negative. Differential includes persistent pneumonia, hospital associated pneumonia, symptomatic anemia, arrhythmia, electrolyte abnormality and less likely PE. Chest x-ray shows worsening pulmonary infiltrates bilaterally since hospital discharge. Patient will be treated for sepsis, hospital associated pneumonia and admitted for further management. Diagnosis Primary Impression: Sepsis Qualified Code: A41.9 - Sepsis, due to unspecified organism Additional Impression: Pneumonia Qualified Code: J18.9 - Pneumonia of both lungs due to infectious organism, unspecified part of lung Admitting Information Admitting Physician Requests: Admit Sima Leggett MD July 09, 2016 16:33
[2016-07-09 16:38] LABS: APTT (PATIENT) 28.8 SEC (24.3-30.1); INTERNATIONAL NORMALIZED RATIO 1.4 RATIO; PROTHROMBIN TIME - PATIENT 15.9 SEC (9.8-11.6)
[2016-07-09] MEDS: ONDANSETRON HCL 4 MG/2 ML VIAL IVP PRN ×2 (16:54→22:38)
[2016-07-09 16:58] LABS: ALKALINE PHOSPHATASE 175 U/L (45-117); TOTAL BILIRUBIN ADULT 4.6 MG/DL (0.2-1.0)
[2016-07-09] MEDS: DOCUSATE SODIUM 100 MG CAP PO SCH (17:02)
[2016-07-09 17:35] LABS: ALT (GPT) 64 U/L (10-53); ANION GAP 9 MEQ/L (5-15); AST (GOT) 114 U/L (15-37); BICARBONATE 29.8 MEQ/L (21.0-32.0); BLOOD UREA NITROGEN 13 MG/DL (7-18); CHLORIDE 96 MEQ/L (98-107); GLOMERULAR FILTRATION RATE 115 ML/MIN (>89); MAGNESIUM 1.7 MG/DL (1.5-2.5); POTASSIUM 3.4 MEQ/L (3.5-5.1); SODIUM (NA) 135 MEQ/L (136-145)
[2016-07-09] MEDS: methylPREDNISolone SOD SUCC 40 MG/1 ML VIAL IV PUSH SCH ×2 (18:25→22:38)
[2016-07-09] MEDS: RESP: ALBUTEROL 2.5 MG/IPRATROPIUM 0.5 MG NEB (SCH) NEB (22:20)
[2016-07-09] MEDS: PENTOXIFYLLINE 400 MG CONTROLLED RELEASE TAB PO SCH (22:39)
[2016-07-09] MEDS: guaiFENesin E.R. 600 MG TAB PO SCH (22:39)
[2016-07-09] MEDS: FLUTICASONE PROPIONATE 110 MCG/ACT 12 GM INHALER INH SCH (22:40)
[2016-07-09] MEDS: RIFAXIMIN 550 MG TAB PO SCH (22:40)
[2016-07-09] MEDS: SODIUM CHLORIDE 0.9% FLUSH 10 ML FLUSH IV FLUSH SCH (22:43)
[2016-07-09] MEDS: CEFEPIME INJ 2,000 MG in SODIUM CHLORIDE 0.9% INJ 100 ML IV SCH (22:49)
[2016-07-09] MEDS: HEPARIN SODIUM - SQ 10,000 UNITS/ML VIAL SQ SCH (22:50)
[2016-07-09] MEDS ORDERED: ALUMINUM/MAGNESIUM/SIMETH 30 ML CUP PO ONE (23:30)
[2016-07-09] MEDS: LORazepam 0.5 MG TAB PO PRN (23:42)
[2016-07-10] VITALS (11 sets, daily range): BP systolic 104–136; BP diastolic 58–71; PULSE 104–133; RESP 16–20; TEMP 97.3–98.6; O2SAT 87–94
[2016-07-10] MEDS: RESP: ALBUTEROL 2.5 MG/IPRATROPIUM 0.5 MG NEB (SCH) NEB ×6 (00:38→19:16)
[2016-07-10] MEDS ORDERED: MORPHINE SULFATE 4 MG/ML INJ IV PUSH ONE (01:15)
[2016-07-10] MEDS: SODIUM CHLORIDE 0.9% FLUSH 10 ML FLUSH IV FLUSH PRN (01:25)
[2016-07-10] MEDS: PENTOXIFYLLINE 400 MG CONTROLLED RELEASE TAB PO SCH ×3 (06:13→20:46)
[2016-07-10] MEDS: DOCUSATE SODIUM 100 MG CAP PO SCH ×2 (06:14→15:13)
[2016-07-10] MEDS: CEFEPIME INJ 2,000 MG in SODIUM CHLORIDE 0.9% INJ 100 ML IV SCH ×3 (06:16→22:45)
[2016-07-10] MEDS: methylPREDNISolone SOD SUCC 40 MG/1 ML VIAL IV PUSH SCH ×3 (06:20→17:20)
[2016-07-10] MEDS: THIAMINE HCL 100 MG TAB PO SCH (09:00)
[2016-07-10] MEDS: FLUTICASONE PROPIONATE 110 MCG/ACT 12 GM INHALER INH SCH ×2 (09:00→20:45)
[2016-07-10] MEDS ORDERED: FUROSEMIDE 40 MG TAB PO SCH (09:00)
[2016-07-10] MEDS: TIOTROPIUM BROMIDE 18 MCG INH INH SCH (09:00)
[2016-07-10] MEDS ORDERED: PANTOPRAZOLE SOD 40 MG DELAYED RELEASE TAB PO SCH (09:00)
[2016-07-10] MEDS: RIFAXIMIN 550 MG TAB PO SCH ×2 (09:56→20:46)
[2016-07-10] MEDS: guaiFENesin E.R. 600 MG TAB PO SCH ×2 (09:56→20:50)
[2016-07-10] MEDS: AZITHROMYCIN INJ 500 MG in SODIUM CHLOR 0.9% 250 ML INJ 250 ML IV SCH (09:56)
[2016-07-10] MEDS: FOLIC ACID 1 MG TAB PO SCH (09:57)
[2016-07-10] MEDS: HEPARIN SODIUM - SQ 10,000 UNITS/ML VIAL SQ SCH ×2 (09:58→20:47)
[2016-07-10] MEDS: SODIUM CHLORIDE 0.9% FLUSH 10 ML FLUSH IV FLUSH SCH ×2 (10:04→20:46)
[2016-07-10] MEDS: ONDANSETRON HCL 4 MG/2 ML VIAL IVP PRN (10:39)
--- NOTE | 2016-07-10 11:41 | HHI.PR ---
Subjective Remarks patient seen 4:30 pm hyperventilating to the point of like in a panic attack asking for pain meds main complain is pain- requesting for pain meds Objective Vitals Vital Signs Date Time Temp Pulse Resp B/P Pulse Ox O2 Delivery O2 Flow Rate FiO2 07/10/16 08:05 108 07/10/16 08:00 97.3 110 20 104/61 93 07/10/16 07:33 94 Nasal Cannula 4.00 07/10/16 04:00 98.3 104 18 108/66 93 07/10/16 01:21 117 16 113/58 93 07/09/16 23:01 98.9 104 16 110/64 96 07/09/16 22:21 93 Nasal Cannula 2.00 07/09/16 20:08 106 07/09/16 20:00 98.0 96 16 90/55 97 98/58 07/09/16 17:14 92 18 95 Nasal Cannula 2 07/09/16 17:13 92 18 98/61 97 Nasal Cannula 2 07/09/16 16:37 91 18 99/55 95 Nasal Cannula 2 07/09/16 15:59 95 42 96 2 07/09/16 14:44 98.3 96 20 109/55 94 Nasal Cannula 4 Result Diagram: 07/09/16 1616 07/09/16 1616 Imaging Last Impressions Chest X-Ray 07/09/16 0000 Signed Impressions: Service Date/Time: Saturday, July 09, 2016 15:28 - CONCLUSION: Diffuse consolidation and bilateral pleural effusions likely representing pulmonary edema. When compared to the prior examination, these findings are worse. Qasim Phillips MD Objective Remarks awake and alert, dyspneic anicteric lungs- decrease breath sound, no wheezes, tachycardic- abdomen- distended but soft, no guarding extremities ++ edema neuro non focal A/P Assessment and Plan 31 years old female recently discharged -Status post acute Hypoxemic respiratory failure, with Pneumonia with effusions, S/P tap then 06/16- rghtt 800cc- transudativew as DC on po antibiotics and Lasix Acute respiratory failure- CXR reviewed- - pulmonary edema picture - on exam with +leg edema/ascites, BNP 800s- from low albumin state Echo done last visit- 55-6-% EF ABG stat done shows Acute respiratory alkalosis . Lasix 40 mg IV x 1 now. continue on Lasix home dose in am on IV solumedrol- change to po Prednisone reassess in am - need for tap- ascites or fluid Health Care Associated Pneumonia, recently admitted for PNA and was DC 3 days ago on po Ceftin- Bilateral infiltrates - worsening started on Cefepime and Azithromycin send sputum studies consult ID service- Liver cirrhosis secondary to alcohol hepatitis. History of Hep C,ascites. Cholelithiasis/Ascites S/P Paracentesis 06/30- 1800 cc out 06/10 - MRCP - hepatosplenomegaly. - Ascites - cannot rule out cholecystitis. - HIDA scan - negative for cholecystitis Seen by gastroenterology then . Negative hepatitis, AMA, ASMA, AMA and ceruloplasmin. Hepatitis profile negative Continue pentoxifylline 400 mg by mouth 3 times a day check US again to see if Increase in ascites- belly enlarged but soft Anemia Macrocytic. tobacco dependence as per patient she smoked one pack every two weeks. strongly recommended to stop smoking. Hypertension continue Lopressor 12.5 mg BID, echo showed 50-55% no regional wall motion abnormality- HOld Lopressor. Chronic pain/anxiety -. Symptoms markedly improved with x 1 IV pain meds. per patient on Roxicodone- will restart this after getting IV Dilaudid- - within minutes- patient was observed from outside- playing on her cellphone.- very comfortable. Currently on Os-Zac twice a day Prophylaxis - GI - Protonix, DVT prophylaxis with Heparin 5000 units every 12 hours and following Heart healthy diet. Riley Howe MD July 10, 2016 11:40
[2016-07-10 13:56] LABS: HEMATOCRIT 30.2 % (35.0-46.0); MEAN CORPUSCULAR HEMOGLOBIN 33.9 PG (27.0-34.0); MEAN CORPUSCULAR HGB CONC 33.6 % (32.0-36.0); PLATELET COUNT 153 TH/MM3 (150-450); RED BLOOD COUNT 2.99 MIL/MM3 (4.00-5.30); RED CELL DISTRIBUTION WIDTH 15.8 % (11.6-17.2); REVIEW FLAG FINAL; WHITE BLOOD COUNT 16.2 TH/MM3 (4.0-11.0)
[2016-07-10 14:09] LABS: ALT (GPT) 54 U/L (10-53); ANION GAP 12 MEQ/L (5-15); AST (GOT) 61 U/L (15-37); BICARBONATE 26.6 MEQ/L (21.0-32.0); BLOOD UREA NITROGEN 18 MG/DL (7-18); CHLORIDE 98 MEQ/L (98-107); GLOMERULAR FILTRATION RATE 93 ML/MIN (>89); POTASSIUM 3.8 MEQ/L (3.5-5.1); SODIUM (NA) 137 MEQ/L (136-145)
[2016-07-10 14:12] LABS: ALKALINE PHOSPHATASE 162 U/L (45-117); TOTAL BILIRUBIN ADULT 2.9 MG/DL (0.2-1.0)
--- NOTE | 2016-07-10 14:42 | MB ---
cc: CHRISTA RICHARDSON WAHBA W. M.D. DATE OF CONSULTATION: 07/10/2016. REASON FOR CONSULTATION: Bilateral pneumonia. HISTORY OF PRESENT ILLNESS: The patient is a 31-year-old female admitted with increasing shortness of breath and bilateral lung infiltrates. The patient does have underlying alcohol-related liver cirrhosis. Chest x-ray reveals a small bibasilar effusions. She denies fever or chills. The chief complaint upon presentation to the emergency room was abdominal pain and increasing ankle edema. PAST MEDICAL HISTORY: Her past medical history is that of: 1. Bilateral pneumonia. 2. Alcoholic hepatitis. 3. Tobacco dependence. 4. Alcohol abuse; however, she tells me she has not drunk for a month; however the patient was recently in the hospital. 5. Ascites. 6. Bilateral effusions. 7. Hypertension. 8. Previous knee surgery. MEDICATIONS: Her medications include: 1. Cefuroxime. 2. Nebulized albuterol and Ipratropium. 3. Fluticasone at home. 4. 02 two liters nasal cannula. 5. Lasix. 6. Ativan. 7. Metoprolol. 8. Oxycodone. 9. Pentoxifylline. 10. Xifaxan. ALLERGIES: None known to medications. FAMILY HISTORY: Noncontributory. SOCIAL HISTORY: Alcohol and tobacco abuse. REVIEW OF SYSTEMS: A twelve-point review of systems is as per the history of present illness and past history, otherwise negative. PHYSICAL EXAMINATION: VITAL SIGNS: Temperature 98.3, pulse 90, respirations 20, blood pressure 110/55, oxygen saturation 95% on four liters oxygen via nasal cannula. HEAD, EYES, EARS, NOSE, THROAT: Unremarkable. Eyes without icterus. NECK: Without adenopathy, thyroid enlargement, central trachea. CHEST: Scattered rhonchi bilaterally. CARDIAC: PMI distant. S1 and S2 audible. No murmur, no rub. ABDOMEN: Lax. Bowel sounds audible. EXTREMITIES: No cyanosis, clubbing or edema. RADIOLOGICAL STUDIES: Chest x-ray: Bilateral lung infiltrates, small bibasilar effusions. LABORATORY DATA: White count is 16,000, hemoglobin 10, hematocrit 30, platelet count 153,000. INR is 1.4. Sodium 136, potassium 3.8, BUN 18, creatinine 0.7. IMPRESSION: 1. Bilateral pneumonia, in part chronic. 2. Bibasilar effusions. 3. Ascites. 4. Liver cirrhosis. 5. Tobacco and alcohol abuse. PLAN: The patient has been started on antibiotic therapy, and appropriately so. Infectious disease consultation will be appropriate in view of the patient's bilateral atypical pneumonia. She has been seen by Dr. Jaimes and Dr. Richardson in the past who will follow up her care. I do thank you for asking me to partake in Mrs. Woo's care. Jazzy Purcell MD WWW/MAR /2:17 PM /2:34 PM
[2016-07-10] MEDS: LORazepam 0.5 MG TAB PO PRN ×2 (15:13→23:02)
[2016-07-10] MEDS ORDERED: FUROSEMIDE 40 MG/4 ML VIAL IV PUSH ONE (16:30)
--- NOTE | 2016-07-10 16:40 | EKG ---
Date Performed: 07/09/2016 Time Performed: 15:36:32 PTAGE: 31 years EKG: Sinus rhythm WITH SHORT LA INTERVAL BORDERLINE ECG NO PREVIOUS TRACING DOCTOR: Richa Tong Interpretating Date/Time 07/10/2016 16:39:59
[2016-07-10] MEDS ORDERED: HYDROmorphone HCL PF 1 MG/ML VIAL IV PUSH ONE (16:45)
[2016-07-10 16:50] LABS: BLOOD GAS BASE EXCESS 0.1 mmol/L (-2-2); BLOOD GAS HCO3 23 mmol/L (22-26); BLOOD GAS METHEMOGLOBIN 0.7 % (0-2); BLOOD GAS O2 HGB SATURATION 90 % (90-100); BLOOD GAS OXYGEN CONTENT 12.2 Vol % (12.0-20.0); BLOOD GAS PCO2 31 mmHg (38-42); BLOOD GAS PO2 65 mmHg (61-120); BLOOD GAS TOTAL HGB 9.7 G/DL (12.0-16.0); CRITICAL VALUE NO; DRAW SITE RT RADIAL; LITER FLOW 4 L/M; NUMBER OF ARTERIAL PUNCTURES 1; OXYGEN DEVICE NASAL CANNULA; STAT YES; TEMP CORR TO 98.6; ULNAR PULSE Y
--- NOTE | 2016-07-10 17:13 | RADRPT ---
EXAM DATE/TIME: 07/10/2016 16:57 [facility] COMPARISON: CHEST PA & LAT, July 09, 2016, 15:28. INDICATIONS : Shortness of breath. MEDICAL HISTORY : None. SURGICAL HISTORY : None. ENCOUNTER: Subsequent ACUITY: 2 days PAIN SCORE: 0/10 LOCATION: Bilateral chest FINDINGS: Extensive bilateral pneumonia again noted, slightly worse and fairly diffuse on the left but slightly improved in the region of the right base. Small bilateral pleural effusions are likely. I don't see a pneumothorax. Stable, normal heart size. CONCLUSION: Bilateral infiltrates persist, slightly improved on the right, slightly worse on the left. Given the change, asymmetry and relatively normal heart size, pneumonia would be favored over failure. Qasim Lemon MD on July 10, 2016 at 17:09 Board Certified Radiologist. This report was verified electronically.
[2016-07-10] MEDS ORDERED: predniSONE 20 MG TAB PO SCH (21:00)
[2016-07-10 23:22] LABS: AMPHETAMINE, URINE NEG (NEG); BARBITURATES, URINE NEG (NEG); COCAINE, URINE NEG (NEG)
[2016-07-11] VITALS (23 sets, daily range): BP systolic 88–130; BP diastolic 53–84; PULSE 90–122; RESP 14–42; TEMP 97.6–99; O2SAT 92–100
[2016-07-11] MEDS ORDERED: POTASSIUM CHLORIDE 20 MEQ CONTROLLED RELEASE TAB PO ONE
[2016-07-11] MEDS ORDERED: FUROSEMIDE 20 MG/2 ML VIAL IV PUSH ONE
[2016-07-11] MEDS: SODIUM CHLORIDE 0.9% FLUSH 10 ML FLUSH IV FLUSH PRN ×2 (00:02→02:14)
--- NOTE | 2016-07-11 00:57 | RADRPT ---
EXAM DATE/TIME: 07/11/2016 00:51 [facility] COMPARISON: CHEST SINGLE AP, July 10, 2016, 16:57. INDICATIONS : Respiratory distress. Pneumonia. MEDICAL HISTORY : None. SURGICAL HISTORY : None. ENCOUNTER: Subsequent ACUITY: 3 days PAIN SCORE: 8/10 LOCATION: Bilateral chest FINDINGS: There is worsening air space process in the right lung since the prior study and left lung diffuse ai r space process has not significantly changed. The rest of the examination has not significantly reese ged. CONCLUSION: Worsening air space process in the right lung. Mert Laurent MD on July 11, 2016 at 0:55 Board Certified Radiologist. This report was verified electronically.
[2016-07-11 01:47] LABS: BASOPHIL % 0.1 % (0.0-2.0); HEMATOCRIT 31.3 % (35.0-46.0); HEMO FLAGS DIFF FINAL; LYMPH % 1.3 % (9.0-44.0); LYMPHOCYTE # 0.3 TH/MM3 (1.0-4.8); MEAN CELL VOLUME 100.9 FL (80.0-100.0); MEAN CORPUSCULAR HEMOGLOBIN 32.8 PG (27.0-34.0); MEAN CORPUSCULAR HGB CONC 32.5 % (32.0-36.0); MONO % 4.9 % (0.0-8.0); NEUT % 93.7 % (16.0-70.0); PLATELET COUNT 145 TH/MM3 (150-450); RED CELL DISTRIBUTION WIDTH 16.1 % (11.6-17.2); WHITE BLOOD COUNT 25.7 TH/MM3 (4.0-11.0)
[2016-07-11 01:49] LABS: ALT (GPT) 60 U/L (10-53); ANION GAP 12 MEQ/L (5-15); AST (GOT) 57 U/L (15-37); BICARBONATE 25.7 MEQ/L (21.0-32.0); BLOOD UREA NITROGEN 21 MG/DL (7-18); CHLORIDE 97 MEQ/L (98-107); GLOMERULAR FILTRATION RATE 72 ML/MIN (>89); MAGNESIUM 1.7 MG/DL (1.5-2.5); POTASSIUM 4.1 MEQ/L (3.5-5.1); SODIUM (NA) 135 MEQ/L (136-145)
[2016-07-11 01:51] LABS: ALKALINE PHOSPHATASE 181 U/L (45-117); TOTAL BILIRUBIN ADULT 2.5 MG/DL (0.2-1.0)
[2016-07-11] MEDS ORDERED: FUROSEMIDE 40 MG/4 ML VIAL IV PUSH ONE (02:00)
[2016-07-11 02:15] LABS: BLOOD GAS BASE EXCESS 0.8 mmol/L (-2-2); BLOOD GAS HCO3 24 mmol/L (22-26); BLOOD GAS METHEMOGLOBIN 0.8 % (0-2); BLOOD GAS O2 HGB SATURATION 87 % (90-100); BLOOD GAS OXYGEN CONTENT 11.4 Vol % (12.0-20.0); BLOOD GAS PCO2 31 mmHg (38-42); BLOOD GAS PO2 57 mmHg (61-120); BLOOD GAS TOTAL HGB 9.3 G/DL (12.0-16.0); TEMP CORR TO 98.6
[2016-07-11 02:17] LABS: CRITICAL VALUE YES; DRAW SITE RT RADIAL; FIO2 91 %; LITER FLOW 4 L/M; NUMBER OF ARTERIAL PUNCTURES 2; OXYGEN DEVICE NASAL CANNULA; STAT YES; ULNAR PULSE PRESENT
[2016-07-11] MEDS: RESP: ALBUTEROL 2.5 MG/IPRATROPIUM 0.5 MG NEB (SCH) NEB ×6 (02:23→20:00)
[2016-07-11] MEDS ORDERED: VANCOMYCIN INJ 1,000 MG in SODIUM CHLOR 0.9% 250 ML INJ 250 ML IV ONE (02:30)
[2016-07-11] MEDS ORDERED: Vancomycin Consult Pharmacy 1 EA OTHER SCH (02:30)
[2016-07-11] MEDS ORDERED: VANCOMYCIN INJ 1,250 MG in SODIUM CHLOR 0.9% 250 ML INJ 250 ML IV ONE (02:45)
[2016-07-11] MEDS ORDERED: guaiFENesin/DEXTROMETHORPHAN 200 MG/20 MG/10 ML CUP PO PRN (03:30)
[2016-07-11] MEDS: DOCUSATE SODIUM 100 MG CAP PO SCH ×2 (05:00→16:37)
[2016-07-11] MEDS: PENTOXIFYLLINE 400 MG CONTROLLED RELEASE TAB PO SCH ×3 (06:00→20:51)
--- NOTE | 2016-07-11 06:09 | HHI.PR ---
Addendum to Inpatient Note Addendum Reason: Additional Documentation Additional Information I came to see this patient at the request of the BRENDON RN. The patient has had increasing oxygen needs throughout the night and tachypnea. The patient is seen in her hospital room. She presents to me much the same as she did on 06/21 during the prior hospitalization; more concerned about lack of sleep than about her breathing problems. ABGs show oxygen saturation 87%, pO2 57; slightly worse than they were at 1644 on 07/10/16. Chest x-ray shows worsening airspace process in the right lung and left lung diffuse airspace process not significantly changed. Discussed with Dr. Yi (supervising physician) and Lasix 40 mg IV given, vancomycin started. The patient was re-examined about an hour later and appeared to be clinically improved; respirations were 22 and she was no longer utilizing accessory muscles. She reported feeling "a little better" and appeared calm and peaceful. Oxygen saturation was 88% on 4 liters NC and O2 was increased to 5 liters NC - I requested that the nurse contact RT for humidification of oxygen. Oxygen saturation improved to 91-92%. I discussed with RN and charge nurse plan to monitor patient; titrate up oxygen if needed, try to maintain upright position in bed, and to notify me for any changes. At about 0530 that a ROSAT was called for respiratory distress - oxygen saturation in 80's on 5L NC. I ordered for the patient to be transferred to ICU. I reviewed my note from 06/21/2016 and her prior hospitalization. I suspect that she will continue to experience respiratory distress throughout the day and have consulted the intensive care team to assist with her management. Case discussed again with Dr. Yi and now with Dr. Winslow, belt press operator. . Gisele Reynolds July 11, 2016 06:09
[2016-07-11] MEDS ORDERED: BUMETANIDE INJ 1 MG/4 ML VIAL ONE (06:58)
[2016-07-11] MEDS ORDERED: methylPREDNISolone SOD SUCC 125 MG/2 ML VIAL ONE (06:59)
[2016-07-11] MEDS: CEFEPIME INJ 2,000 MG in SODIUM CHLORIDE 0.9% INJ 100 ML IV SCH ×3 (07:00→23:02)
[2016-07-11] MEDS ORDERED: BUMETANIDE INJ 1 MG/4 ML VIAL IV PUSH ONE (07:00)
[2016-07-11] MEDS ORDERED: methylPREDNISolone SOD SUCC 125 MG/2 ML VIAL IV ONE (07:15)
[2016-07-11] MEDS ORDERED: PROPOFOL 1000 MG/100 ML INJ 100 ML ONE (07:29)
[2016-07-11] MEDS ORDERED: VANCOMYCIN INJ 1,000 MG in SODIUM CHLOR 0.9% 250 ML INJ 250 ML IV SCH (07:30)
[2016-07-11] MEDS ORDERED: ETOMIDATE 40 MG/20 ML VIAL ONE (07:32)
[2016-07-11] MEDS ORDERED: SUCCINYLCHOLINE CHLORIDE 200 MG/10 ML VIAL ONE (07:43)
[2016-07-11] MEDS ORDERED: DEXTROSE 50% IN WATER 50 ML VIAL(D50) IV PRN (07:45)
[2016-07-11] MEDS ORDERED: GLUCAGON 1 MG/ML VIAL OTHER PRN (07:45)
[2016-07-11] MEDS: INSULIN NovoLIN REGULAR SUPPLEMENTAL SCALE SQ SCH ×4 (08:00→20:00)
--- NOTE | 2016-07-11 08:02 | MB ---
cc: AV PEREZ M.D. DATE OF CONSULTATION: 07/11/2016 DATE OF : 1985 HISTORY OF PRESENT ILLNESS The patient is a 31-year-old female with past medical history of ETOH hepatitis, ascites and cirrhosis of the liver with ETOH use who was admitted to [facility] on July 09 for healthcare-associated pneumonia. She had a chest x-ray on July 09 which showed diffuse consolidation and bilateral pleural effusions, likely representing pulmonary edema. The patient was recently discharged from the hospital after she was admitted back on June 10. On her prior admission she had an echocardiogram on June 22 which showed an EF of 50-55%. The patient also had paracentesis performed on June 30 with removal of 1.8 liters of ascitic fluid and she had a thoracentesis performed on the right on June 16 with removal of 800 cc of transudative pleural fluid. The patient was admitted under the hospitalists service and was started on broad-spectrum antibiotics for healthcare-associated pneumonia. A HaliCAT was called for respiratory distress and the patient was given Lasix at approximately 2 o'clock this morning and transferred to [facility] – [place]. Critical care medicine was consulted for respiratory distress. Her laboratory data showed worsening leukocytosis with a WBC of 25.7 from 16.2. Her BNP is 529 from 809. Ammonia level less than 10. A repeat chest x-ray showed worsening airspace process. The patient was placed on BiPAP 10/5 with 95% FIO2 and her initial saturation was 98%. When her FIO2 was weaned down she dropped her saturation and initially she refused intubation. She was just given additional Bumex 1 mg IV x1 and Solu-Medrol 80 mg IV push x1. The patient denies any nausea, vomiting or abdominal pain. PAST MEDICAL HISTORY 1. ETOH hepatitis. 2. Anemia. 3. History of pleural effusion and ascites. 4. Hypertension. 5. Cirrhosis of liver. PAST SURGICAL HISTORY Previous arthroscopic surgery. ALLERGIES No known drug allergies. MEDICATIONS Reported medications include: 1. Protonix. 2. Azithromycin. 3. Cefepime. 4. Trental. 5. Rifaximine. 6. Heparin subcu. FAMILY HISTORY Noncontributory. REVIEW OF SYSTEMS As per HPI. The rest of the review of systems is limited due to patient's respiratory distress. PHYSICAL EXAMINATION GENERAL: A 31-year-old female lying in bed in mild to moderate distress on BiPAP at 10/5 with FIO2 80%. HEENT: Atraumatic, normocephalic. Pupils equal, round and reactive to light and accommodation. Extraocular muscles intact. Conjunctiva pink. Non-icteric sclera. Oral mucosa within normal. NECK: Supple. No JVD, adenopathy or thyromegaly. Trachea in the midline. CARDIOVASCULAR: Tachycardic. Normal S1, S2. No murmurs, rubs or gallops noted. PULMONARY: Bilateral equal air entry with diffuse coarse breath sounds and rhonchi. ABDOMEN: Soft, nontender, no distension. Positive bowel sounds. EXTREMITIES: No cyanosis or clubbing. +1 edema. NEUROLOGIC: No focal sensory deficit. LABORATORY DATA Sodium 135, potassium 4.1, chloride 97, CO2 25, BUN 21, creatinine 0.9, glucose 122. AST 57, ALT 60, alk phos 181, ammonia level less than 10. BNP 529. WBC 25.7, hemoglobin 10, hematocrit 31, platelet count 145. INR 1.4, PT 15.9, PTT 28.8. Urine drug screen negative for barbiturates, opiates, cocaine and benzodiazepines. RADIOGRAPHIC STUDIES Chest x-ray from this morning showed worsening airspace disease. IMPRESSION 1. Acute hypoxemic respiratory failure. 2. Diffuse bilateral airspace disease. 3. Pneumonia. 4. Healthcare-associated pneumonia. 5. Leukocytosis. 6. Anemia. 7. Elevated LFTs. 8. Cirrhosis of the liver secondary to ETOH use. 9. Hypertension. 10.History of a ascites with paracentesis performed on June 30. RECOMMENDATIONS 1. Monitor neuro status closely and avoid any sedatives. 2. Continue with thiamine, multivitamins and folic acid. In addition, the patient is on rifaximin and Trental. 3. Check ammonia level. 4. Continue with oxygen and maintain sats above 92%. 5. Bronchodilators in the form of DuoNeb q.4h. plus q.2h. p.r.n. for shortness of breath. 6. Continue with BiPAP for respiratory distress. I discussed with the patient about the possibility of intubation. She refused initially, however, now she is agreeable and if there is any worsening in her clinical status will proceed with intubation and mechanical ventilation. 7. Place on IV steroids in the form of Solu-Medrol 60 mg IV push. She just received 80 mg IV x1. 8. Monitor heart rate and blood pressure closely and maintain MAP greater than 65 mmHg. 9. Echocardiogram from June 22 showed an EF of 50-55%. 10.Monitor renal function, I's and O's, and electrolyte replacement per protocol. 11.Continue with diuretics. Will place on Bumex 1 mg IV daily. 12.Keep n.p.o. for now and continue with Protonix 40 mg IV daily for GI prophylaxis. 13.Continue with broad-spectrum antibiotics in the form of cefepime and azithromycin. Will add vancomycin. Monitor for signs of infection which include fever and WBC. Follow-up on blood culture from July 09, no growth to date. Will obtain a sputum culture with Gram stain and will check strep pneumoniae and Legionella urinary antigen. 14.Infectious Disease has been consulted by the primary team. 15.Place on sliding scale insulin with Accu-Chek q.6h. for glycemic control as the patient will be on IV steroids. 16.Monitor CBC and coagulation. 17.GI prophylaxis with Protonix 40 mg daily and DVT prophylaxis with SCDs and heparin subcu. 18.Further recommendations will be based on the hospital course. Critical care time 45 minutes excluding procedures. MD JAYANT Wheatley/GUILLE /7:30 AM /7:46 AM
--- NOTE | 2016-07-11 08:23 | RADRPT ---
EXAM DATE/TIME: 07/11/2016 07:52 [facility] COMPARISON: CHEST SINGLE AP, July 11, 2016, 0:51. INDICATIONS : Post intubation. MEDICAL HISTORY : Unobtainable. SURGICAL HISTORY : Unobtainable. ENCOUNTER: Subsequent ACUITY: 1 day PAIN SCORE: Non-responsive. LOCATION: Bilateral chest FINDINGS: Portable AP view of the chest demonstrates a normal-sized cardiac silhouette. Endotracheal tube tip i s at the aortic knob level measuring approximately 3.4 cm from the naldo. Nasogastric tube courses b eyond the GE junction. There is severe diffuse airspace consolidation bilaterally with possible bilat eral pleural based opacities. No pneumothorax is visualized. Bones and soft tissues demonstrate no ac picayune finding. CONCLUSION: 1. Endotracheal tube in appropriate position measuring approximately 3.4 cm from the naldo. 2. Stable severe diffuse airspace consolidation bilaterally. Qasim Osuna MD on July 11, 2016 at 8:20 Board Certified Radiologist. This report was verified electronically.
[2016-07-11] MEDS: SODIUM CHLORIDE 0.9% FLUSH 10 ML FLUSH IV FLUSH SCH ×2 (09:00→20:52)
[2016-07-11 09:50] LABS: BLOOD GAS BASE EXCESS 0.3 mmol/L (-2-2); BLOOD GAS CARBOXYHEMOGLOBIN 2.2 % (0-4); BLOOD GAS HCO3 24 mmol/L (22-26); BLOOD GAS METHEMOGLOBIN 1.1 % (0-2); BLOOD GAS O2 HGB SATURATION 92 % (90-100); BLOOD GAS OXYGEN CONTENT 12.1 Vol % (12.0-20.0); BLOOD GAS PCO2 40 mmHg (38-42); BLOOD GAS PO2 80 mmHg (61-120); BLOOD GAS TOTAL HGB 9.2 G/DL (12.0-16.0); CRITICAL VALUE NO; OXYGEN DEVICE VENTILATOR; TEMP CORR TO 98.6
[2016-07-11 09:51] LABS: DRAW SITE RT RADIAL; FIO2 60 %; NUMBER OF ARTERIAL PUNCTURES 1; STAT NO; ULNAR PULSE PRESENT
[2016-07-11] MEDS: THIAMINE HCL 100 MG TAB PO SCH (10:17)
[2016-07-11] MEDS: FOLIC ACID 1 MG TAB PO SCH (10:17)
[2016-07-11] MEDS: RIFAXIMIN 550 MG TAB PO SCH ×2 (10:17→20:51)
[2016-07-11] MEDS: guaiFENesin E.R. 600 MG TAB PO SCH ×2 (10:18→20:51)
[2016-07-11] MEDS: AZITHROMYCIN INJ 500 MG in SODIUM CHLOR 0.9% 250 ML INJ 250 ML IV SCH (10:18)
[2016-07-11] MEDS: PANTOPRAZOLE SODIUM 40 MG VIAL IV PUSH SCH (10:19)
[2016-07-11] MEDS: HEPARIN SODIUM - SQ 10,000 UNITS/ML VIAL SQ SCH ×2 (10:20→20:51)
--- NOTE | 2016-07-11 10:27 | PD.CONS ---
History of Present Illness Service Infectious disease Consult Requested By Dr Jhonny Howe Reason for Consult Evaluate patient with worsening bilateral infiltrates Primary Care Physician No Primary Care Physician Diagnoses: History of Present Illness Patient seen and examined. Records reviewed. Patient is a 31-year-old female, recently discharged from the hospital, diagnosed to have alcohol hepatitis, brought into the hospital because she apparently had an outpatient chest x-ray done which showed abnormal results. During her previous hospitalization, she had acute alcoholic hepatitis, and other etiology for her hepatitis came back negative. She developed bilateral pulmonary infiltrates when she was in the hospital, and she was in the ICU for some time. Sputum culture only showed normal respiratory arianna. She was put on broad-spectrum antibiotics, and her follow-up chest x-ray had shown some mild improvement, and she was discharge July 05, and plans to finish the course of antibiotics for pneumonia. She also had pleural effusion which was tapped, and it was transudative, cultures are negative. She had an HIV testing that came back negative. She was afebrile, but had persistent leukocytosis. Her current history is not very clear. According to the ED notes, patient apparently had a chest x-ray ordered, and it was done on the day of admission. She was called because the chest x-ray was very abnormal. It was not clear why the chest x-ray was ordered. There was mention that she was not having any change in her breathing. She has some cough which has been the same as before and she would occasionally bring up some yellowish phlegm. There was no mention that she was having any fever or chills, or nausea or vomiting. On presentation her chest x-ray showed some worsening compared to her previous chest x-ray. She is afebrile. Her white count had gone up to 25,000. Yesterday she had increasing shortness of breath, and transferred to the ICU. She ended up getting intubated. Patient remains afebrile. She was started on steroids. Infectious disease consultation has been requested to evaluate the patient. Review of Systems ROS Limitations: Clinical Condition, Intubated Past Family Social History Allergies: Coded Allergies: No Known Allergies (Unverified , 07/09/16) Past Medical History Alcohol abuse Recent alcoholic hepatitis Past Surgical History Arthroscopic knee surgery Active Ordered Medications Tylenol Albuterol Zithromax Dulcolax Bumex Cefepime Colace Fentanyl Flovent Folate acid Mucinex Robitussin-DM Heparin Insulin Ativan Solu-Medrol Zofran Oxycodone Protonix Trental Propofol Rifaximin Thiamine Spiriva Vancomycin Social History Used to drink a pint of alcohol per day No smoking No illicit drugs Physical Exam Vital Signs Vital Signs Date Time Temp Pulse Resp B/P Pulse Ox O2 Delivery O2 Flow Rate FiO2 07/11/16 07:45 95 100 07/11/16 06:22 99 Bi-Pap 95 07/11/16 06:11 96 100 07/11/16 06:00 97.6 122 38 130/84 97 07/11/16 06:00 122 07/11/16 05:30 94 15.00 100 07/11/16 03:00 Nasal Cannula 5.00 07/10/16 23:59 93 Nasal Cannula 4.00 07/10/16 23:53 91 Nasal Cannula 4.00 07/10/16 23:45 Nasal Cannula 3.00 07/10/16 23:45 98.6 130 20 122/68 87 07/10/16 20:15 98.4 127 16 116/71 94 07/10/16 19:48 133 07/10/16 19:17 94 Nasal Cannula 4.00 07/10/16 16:00 97.5 120 20 136/59 93 07/10/16 12:00 98.1 106 18 108/69 94 Physical Exam GENERAL: Patient is a well-nourished, well-developed CF, awake and alert, not in respiratory distress. SKIN: Warm and dry. Has jaundice. Has spider angionata in her upper chest, no ecchymoses and no evidence of embolic lesions. HEAD: Atraumatic. Normocephalic. No temporal wasting, or tenderness. EYES: [place] conjunctiva. No petechia or hemorrhage. Pupils equal, round and reactive to light. Has scleral icterus. No injection or drainage. EARS, NOSE AND THROAT: Nose without bleeding or purulent nasal discharge. No sinus tenderness. She is orally intubated. NECK: Trachea midline. Supple and not tender, no meningeal signs CARDIOVASCULAR: Regular rate and rhythm. No murmurs, rubs or gallops heard RESPIRATORY: Coarse BS bilaterally. Breath sounds equal bilaterally. Decreased at the bases ABDOMEN: Soft, mildly distended, bowel sounds present and normoactive, with mild diffuse tenderness, no guarding or rebound. Liver tender and enlarged. EXTREMITIES: No clubbing, or cyanosis. Has bilateral pitting edema. Both feet well perfused and warm. NEUROLOGICAL: Sedated, opens eyes when stimulated, responding PSYCHIATRIC: Unable to fully assess : Cleaning in place, urine looks ok LINE: No evidence of infection Laboratory Laboratory Tests Test 07/10/16 07/10/16 07/10/16 07/11/16 13:31 16:44 22:51 01:28 White Blood Count 16.2 25.7 Red Blood Count 2.99 3.10 Hemoglobin 10.1 10.2 Hematocrit 30.2 31.3 Mean Corpuscular Volume 101.0 100.9 Mean Corpuscular Hemoglobin 33.9 32.8 Mean Corpuscular Hemoglobin 33.6 32.5 Concent Red Cell Distribution Width 15.8 16.1 Platelet Count 153 145 Mean Platelet Volume 11.3 11.1 Sodium Level 137 135 Potassium Level 3.8 4.1 Chloride Level 98 97 Carbon Dioxide Level 26.6 25.7 Anion Gap 12 12 Blood Urea Nitrogen 18 21 Creatinine 0.72 0.90 Estimat Glomerular Filtration 93 72 Rate Random Glucose 185 122 Calcium Level 8.3 8.1 Total Bilirubin 2.9 2.5 Aspartate Amino Transf 61 57 (AST/SGOT) Alanine Aminotransferase 54 60 (ALT/SGPT) Alkaline Phosphatase 162 181 B-Type Natriuretic Peptide 809 529 Total Protein 5.4 5.7 Albumin 2.3 2.5 Magnesium Level 1.8 1.7 Blood Gas Puncture Site RT RADIAL Blood Gas Patient Temperature 98.6 Blood Gas HCO3 23 Blood Gas Base Excess 0.1 Blood Gas Oxygen Saturation 90 Arterial Blood pH 7.49 Arterial Blood Partial 31 Pressure CO2 Arterial Blood Partial 65 Pressure O2 Arterial Blood Oxygen Content 12.2 Arterial Blood 2.0 Carboxyhemoglobin Arterial Blood Methemoglobin 0.7 Blood Gas Hemoglobin 9.7 Oxygen Delivery Device NASAL CANNULA Blood Gas Liter Flow 4 Blood Gas Ventilator Setting Urine Opiates Screen NEG Urine Barbiturates Screen NEG Urine Amphetamines Screen NEG Urine Benzodiazepines Screen NEG Urine Cocaine Screen NEG Urine Cannabinoids Screen NEG Neutrophils (%) (Auto) 93.7 Lymphocytes (%) (Auto) 1.3 Monocytes (%) (Auto) 4.9 Eosinophils (%) (Auto) 0.0 Basophils (%) (Auto) 0.1 Neutrophils # (Auto) 24.0 Lymphocytes # (Auto) 0.3 Monocytes # (Auto) 1.3 Eosinophils # (Auto) 0.0 Basophils # (Auto) 0.0 CBC Comment DIFF FINAL Differential Comment Hematology Comments Ammonia LESS THAN 10 Test 07/11/16 07/11/16 02:00 09:40 Blood Gas Puncture Site RT RADIAL RT RADIAL Blood Gas Patient Temperature 98.6 98.6 Blood Gas HCO3 24 24 Blood Gas Base Excess 0.8 0.3 Blood Gas Oxygen Saturation 87 92 Arterial Blood pH 7.49 7.41 Arterial Blood Partial 31 40 Pressure CO2 Arterial Blood Partial 57 80 Pressure O2 Arterial Blood Oxygen Content 11.4 12.1 Arterial Blood 2.0 2.2 Carboxyhemoglobin Arterial Blood Methemoglobin 0.8 1.1 Blood Gas Hemoglobin 9.3 9.2 Oxygen Delivery Device NASAL CANNULA VENTILATOR Blood Gas Liter Flow 4 Blood Gas Inspired Oxygen 91 60 Blood Gas Ventilator Setting Date/Time Procedure Status Source Growth 07/09/16 16:15 Aerobic Blood Culture - Preliminary Resulted Blood Peripheral NO GROWTH IN 1 DAY 07/09/16 16:15 Anaerobic Blood Culture - Preliminary Resulted Blood Peripheral NO GROWTH IN 1 DAY Result Diagram: 07/11/16 0128 07/11/16 0128 Imaging RADIOLOGY STUDIES/FILMS REVIEWED Chest X-Ray 07/11/16 0000 Signed Impressions: Service Date/Time: Monday, July 11, 2016 07:52 - CONCLUSION: 1. Endotracheal tube in appropriate position measuring approximately 3.4 cm from the naldo. 2. Stable severe diffuse airspace consolidation bilaterally. Qasim Osuna MD Chest X-Ray 07/10/16 0000 Signed Impressions: Service Date/Time: Monday, July 11, 2016 00:51 - CONCLUSION: Worsening air space process in the right lung. Mert Laurent MD Chest X-Ray 07/10/16 0000 Signed Impressions: Service Date/Time: Sunday, July 10, 2016 16:57 - CONCLUSION: Bilateral infiltrates persist, slightly improved on the right, slightly worse on the left. Given the change, asymmetry and relatively normal heart size, pneumonia would be favored over failure. Qasim Lemon MD Chest X-Ray 07/09/16 0000 Signed Impressions: Service Date/Time: Saturday, July 09, 2016 15:28 - CONCLUSION: Diffuse consolidation and bilateral pleural effusions likely representing pulmonary edema. When compared to the prior examination, these findings are worse. Qasim Phillips MD Assessment and Plan Assessment and Plan IMPRESSION Bilateral infiltrates, worsening in very acute progression, likely more inflammatory, ?ARDS - ?new PNA, she has not had any worsening of her cough or congestion, too rapid a development Respiratory failure ETOH hepatitis Leukocytosis RECOMMENDATION Check cultures Will get atypical serologies ?Should she get lung biopsy She is on broad spectrum Abx started by primary and general road production manager and continue for now Monitor progress I will follow along with you Thank you for this consultation Discussed Condition With D/W Whit Magaña MD July 11, 2016 10:27
--- NOTE | 2016-07-11 12:48 | RADRPT ---
EXAM DATE/TIME: 07/11/2016 10:24 [facility] COMPARISON: CT PULMONARY ANGIOGRAM, June 26, 2016, 15:16. INDICATIONS : Increased lab values. Ascites. MEDICAL HISTORY : Pleural effusion. Dyspnea. Ascites. Alcoholic hepatitis. Anxiety. SURGICAL HISTORY : Paracentesis. Right knee repair. ENCOUNTER: Initial ACUITY: 1 day PAIN SCORE: Nonresponsive. LOCATION: Bilateral upper quadrant MEASUREMENTS: LIVER: 17.4 cm length COMMON DUCT: 5 mm RIGHT KIDNEY: 10.7 x 5.4 x 3.5 cm SPLEEN: 15.7 cm length FINDINGS: Pleural effusions and ascites LIVER: Normal echotexture without focal lesion or ductal dilatation. COMMON DUCT: No intraluminal mass or stone visualized. GALLBLADDER: Single tiny echogenic focus in the fundus region which may be a small polyp or wall adherent stone. PANCREAS: Obscured RIGHT KIDNEY: No hydronephrosis, stone or mass. SPLEEN: Enlarged without focal mass CONCLUSION: Ascites and pleural effusions. Splenomegaly. Tiny gallstone or gallbladder polyp Qasim Edwards MD on July 11, 2016 at 12:42 Board Certified Radiologist. This report was verified electronically.
[2016-07-11] MEDS: methylPREDNISolone SOD SUCC 125 MG/2 ML VIAL IV PUSH SCH ×2 (12:53→20:51)
[2016-07-11] MEDS: fentaNYL DRIP 250 ML IV SCH (16:35)
[2016-07-11] MEDS: VANCOMYCIN INJ 1,250 MG in SODIUM CHLOR 0.9% 250 ML INJ 250 ML IV SCH (16:36)
[2016-07-11] MEDS: PROPOFOL 1000 MG/100 ML INJ 100 ML IV SCH ×3 (18:28→23:02)
[2016-07-11] MEDS: ALBUMIN HUMAN 25% 12.5 GM/50 ML BAGP IV SCH (20:52)
[2016-07-11] MEDS: FLUTICASONE PROPIONATE 110 MCG/ACT 12 GM INHALER INH SCH (21:00)
[2016-07-11] MEDS: TIOTROPIUM BROMIDE 18 MCG INH INH SCH (21:56)
--- NOTE | 2016-07-11 23:05 | RADRPT ---
EXAM DATE/TIME: 07/11/2016 22:37 [facility] COMPARISON: CT PULMONARY ANGIOGRAM, June 26, 2016, 15:16. INDICATIONS : Pneumonia. RADIATION DOSE: 13.19 CTDIvol (mGy) MEDICAL HISTORY : Hepatitis. Ascities. Pleural effusion. SURGICAL HISTORY : None. ENCOUNTER: Initial ACUITY: 1 day PAIN SCALE: Non-responsive LOCATION: chest TECHNIQUE: Volumetric scanning of the chest was performed. Using automated exposure control and adjustment of t he mA and/or kV according to patient size, radiation dose was kept as low as reasonably achievable to obtain optimal diagnostic quality images. FINDINGS: ` Large bilateral pleural effusions are present. There is worsening bilateral airspace conso lidation in both lungs since the prior study from 06/26/2016 basically involving most of bilateral lung s. There is old fracture of right L1 transverse process. Slight ascites is present in the upper abdom en. CONCLUSION: Bilateral pleural effusions, slight ascites and significant worsening of airspace consolidation in [place] th lungs. Mert Laurent MD on July 11, 2016 at 23:00 Board Certified Radiologist. This report was verified electronically.
[2016-07-12] VITALS (21 sets, daily range): BP systolic 85–102; BP diastolic 50–61; PULSE 61–120; RESP 13–22; TEMP 97.5–99.4; O2SAT 91–100
[2016-07-12] MEDS: RESP: ALBUTEROL 2.5 MG/IPRATROPIUM 0.5 MG NEB (SCH) NEB ×6 (00:32→21:16)
[2016-07-12] MEDS: fentaNYL DRIP 250 ML IV SCH (01:51)
[2016-07-12] MEDS: PROPOFOL 1000 MG/100 ML INJ 100 ML IV SCH ×2 (03:17→09:05)
[2016-07-12] MEDS: VANCOMYCIN INJ 1,250 MG in SODIUM CHLOR 0.9% 250 ML INJ 250 ML IV SCH ×2 (03:25→15:00)
[2016-07-12] MEDS: INSULIN NovoLIN REGULAR SUPPLEMENTAL SCALE SQ SCH ×5 (03:27→20:15)
[2016-07-12] MEDS: CEFEPIME INJ 2,000 MG in SODIUM CHLORIDE 0.9% INJ 100 ML IV SCH ×3 (05:31→21:56)
[2016-07-12] MEDS: DOCUSATE SODIUM 100 MG CAP PO SCH ×2 (05:31→15:09)
[2016-07-12] MEDS: PENTOXIFYLLINE 400 MG CONTROLLED RELEASE TAB PO SCH ×3 (05:31→21:55)
[2016-07-12] MEDS: methylPREDNISolone SOD SUCC 125 MG/2 ML VIAL IV PUSH SCH ×3 (05:31→20:16)
[2016-07-12 05:58] LABS: AUTOMATED NEUTROPHIL # 17.3 TH/MM3 (1.8-7.7); BASOPHIL % 0.2 % (0.0-2.0); HEMO FLAGS DIFF FINAL; LYMPHOCYTE # 0.4 TH/MM3 (1.0-4.8); MEAN CELL VOLUME 101.4 FL (80.0-100.0); MEAN CORPUSCULAR HEMOGLOBIN 33.1 PG (27.0-34.0); MEAN CORPUSCULAR HGB CONC 32.6 % (32.0-36.0); MONO % 3.2 % (0.0-8.0); NEUT % 94.6 % (16.0-70.0); PLATELET COUNT 147 TH/MM3 (150-450); RED BLOOD COUNT 2.76 MIL/MM3 (4.00-5.30); RED CELL DISTRIBUTION WIDTH 15.7 % (11.6-17.2); WHITE BLOOD COUNT 18.3 TH/MM3 (4.0-11.0)
[2016-07-12 06:04] LABS: ANION GAP 12 MEQ/L (5-15); AST (GOT) 48 U/L (15-37); BLOOD UREA NITROGEN 27 MG/DL (7-18); CHLORIDE 97 MEQ/L (98-107); GLOMERULAR FILTRATION RATE 76 ML/MIN (>89); MAGNESIUM 1.7 MG/DL (1.5-2.5); POTASSIUM 4.1 MEQ/L (3.5-5.1); SODIUM (NA) 133 MEQ/L (136-145)
[2016-07-12 06:08] LABS: ALKALINE PHOSPHATASE 137 U/L (45-117); ALT (GPT) 45 U/L (10-53); TOTAL BILIRUBIN ADULT 2.2 MG/DL (0.2-1.0)
--- NOTE | 2016-07-12 06:30 | MB ---
cc: CHRISTA RICHARDSON DATE OF CONSULTATION 07/11/[address] Mccall REASON FOR CONSULTATION Respiratory failure. HISTORY OF PRESENT ILLNESS Ms. Woo is a 31-year-old female who was recently discharged from this hospital. She has a history of pleural effusion and ascites. She had a thoracentesis and paracentesis done. At one time she was requiring high-flow oxygen; she was weaned down to nasal cannula and she was discharged home. She came back three days later with worsening of her shortness of breath. She was initially admitted on the floor. Her shortness of breath got worse; she was transferred to the intensive care unit. Her chest x-ray showed she had extensive bilateral new lung infiltrates. WBC of 25.7, hemoglobin 10.2, hematocrit 31.3, MCV 100, platelet count 145. INR was 1.4. Sodium 1435, potassium 4.1, chloride 97, CO2 25, BUN 21, creatinine 0.90. Ammonia level was less than 10. The patient was intubated. She is currently intubated and sedated. Initially her blood pressure was high but because of the sedation her blood pressure is coming down. PAST MEDICAL HISTORY Significant for - 1. History of alcohol use. 2. Pleural effusion. 3. Ascites. MEDICATIONS She is currently taking - 1. Bumex 1 mg a day. 2. Vancomycin IV. 3. Solu-Medrol 60 mg q. 8-hours. 4. Protonix 40 mg a day. 5. Fentanyl drip. 6. Propofol drip. 7. Albuterol/Atrovent nebulizer treatment. 8. Zithromax 500 mg IV daily. 9. Folic acid 1 mg a day. 10. Spiriva once per day. 11. Thiamine 100 mg. 12. Cefepime 2 grams q. 8 hours. 13. Pentoxifylline 4 mg q.8 hours. 14. Rifaximin 500 mg twice a day. 15. Heparin 5000 q.12 hours. ALLERGIES No known drug allergies. SOCIAL HISTORY She is for 7 years. She has history of smoking off and on and drinks half-pint of vodka per day. FAMILY HISTORY She has one child. She does not work. REVIEW OF STROKE Cannot assess. PHYSICAL EXAMINATION GENERAL: A moderately built, moderately nourished female. She is intubated and sedated. VITAL SIGNS: Blood pressure 108/58, heart rate 103, respirations 17, temperature 98.8. HEENT EXAMINATION: Pupils are equal and reactive. Oral mucosa, nasal mucosa normal. NECK: JVP not raised. CHEST: She has bilateral rales. CV: S1 and S2 normal. ABDOMEN: Soft, mildly distended. Bowel sounds are present. EXTREMITIES: 2-3+ pedal edema. IMPRESSION 1. Respiratory failure. 2. Bilateral extensive infiltrate, likely acute respiratory distress syndrome. 3. Likely congestive heart failure. BNP is not very high. 4. Ascites. 5. Small pleural effusion. 6. Possible sepsis. PLAN 1. The patient is being covered with broad spectrum antibiotic. 2. We will maintain her on the ventilator. 3. She is being diuresed. 4. I will also had IV albumin. 5. Monitor her clinically. 6. If needed, we will consider bronchoscopy. Further treatment will depend on her course in the hospital. Thank you, Dr. Mccall, for this consultation. Christa Richardson MD ADA/SSB /7:01 PM /6:14 AM [id number]
--- NOTE | 2016-07-12 07:28 | HHI.CCPN ---
Subjective Remarks/Hospital Course The patient is a 31-year-old female with past medical history of ETOH hepatitis , ascites and cirrhosis of the liver with ETOH use who was admitted to [facility] on July 09 for healthcare-associated pneumonia. She had a chest x-ray on July 09 which showed diffuse consolidation and bilateral pleural effusions, likely representing pulmonary edema. The patient was recently discharged from the hospital after she was admitted back on June 10. On her prior admission she had an echocardiogram on June 22 which showed an EF of 50-55%. The patient also had paracentesis performed on June 30 with removal of 1.8 liters of ascitic fluid and she had a thoracentesis performed on the right on June 16 with removal of 800 cc of transudative pleural fluid. The patient was admitted under the hospitalists service and was started on broad -spectrum antibiotics for healthcare-associated pneumonia. A [facility] was called for respiratory distress and the patient was given Lasix at approximately 2 o'clock this morning and transferred to [facility]. Critical care medicine was consulted for respiratory distress. Her laboratory data showed worsening leukocytosis with a WBC of 25.7 from 16.2. Her BNP is 529 from 809. Ammonia level less than 10. A repeat chest x-ray showed worsening airspace process. The patient was placed on BiPAP 11/24 with 95% FIO2 and her initial saturation was 98%. When her FIO2 was weaned down she dropped her saturation and initially she refused intubation. She was just given additional Bumex 1 mg IV x1 and Solu-Medrol 80 mg IV push x1. The patient denies any nausea, vomiting or abdominal pain. 07/12 Patient was intubated yesterday for resp failure sedated with Diprivan and Fentanyl. WBC trending down. Afebrile. Objective Vital Signs Date Time Temp Pulse Resp B/P Pulse Ox O2 Delivery O2 Flow Rate FiO2 07/12/16 04:00 97.6 83 14 89/51 97 07/12/16 04:00 40 07/11/16 19:00 Mechanical Ventilator 07/11/16 05:30 15.00 Intake and Output 07/11/16 07/11/16 07/11/16 07:59 15:59 23:59 Intake Total 748 ml 827 ml Output Total 500 ml 450 ml 300 ml Balance -500 ml 298 ml 527 ml Result Diagram: 07/12/16 0440 07/12/16 0440 Other Results Laboratory Tests Test 07/11/16 07/12/16 09:40 04:40 Blood Gas Puncture Site RT RADIAL Blood Gas Patient Temperature 98.6 Blood Gas HCO3 24 mmol/L Blood Gas Base Excess 0.3 mmol/L Blood Gas Oxygen Saturation 92 % Arterial Blood pH 7.41 Arterial Blood Partial 40 mmHg Pressure CO2 Arterial Blood Partial 80 mmHg Pressure O2 Arterial Blood Oxygen Content 12.1 Vol % Arterial Blood 2.2 % Carboxyhemoglobin Arterial Blood Methemoglobin 1.1 % Blood Gas Hemoglobin 9.2 G/DL Oxygen Delivery Device VENTILATOR Blood Gas Ventilator Setting Blood Gas Inspired Oxygen 60 % White Blood Count 18.3 TH/MM3 Red Blood Count 2.76 MIL/MM3 Hemoglobin 9.1 GM/DL Hematocrit 28.0 % Mean Corpuscular Volume 101.4 FL Mean Corpuscular Hemoglobin 33.1 PG Mean Corpuscular Hemoglobin 32.6 % Concent Red Cell Distribution Width 15.7 % Platelet Count 147 TH/MM3 Mean Platelet Volume 11.3 FL Neutrophils (%) (Auto) 94.6 % Lymphocytes (%) (Auto) 2.0 % Monocytes (%) (Auto) 3.2 % Eosinophils (%) (Auto) 0.0 % Basophils (%) (Auto) 0.2 % Neutrophils # (Auto) 17.3 TH/MM3 Lymphocytes # (Auto) 0.4 TH/MM3 Monocytes # (Auto) 0.6 TH/MM3 Eosinophils # (Auto) 0.0 TH/MM3 Basophils # (Auto) 0.0 TH/MM3 CBC Comment DIFF FINAL Differential Comment Sodium Level 133 MEQ/L Potassium Level 4.1 MEQ/L Chloride Level 97 MEQ/L Carbon Dioxide Level 24.0 MEQ/L Anion Gap 12 MEQ/L Blood Urea Nitrogen 27 MG/DL Creatinine 0.86 MG/DL Estimat Glomerular Filtration 76 ML/MIN Rate Random Glucose 140 MG/DL Calcium Level 7.7 MG/DL Phosphorus Level 3.0 MG/DL Magnesium Level 1.7 MG/DL Total Bilirubin 2.2 MG/DL Aspartate Amino Transf 48 U/L (AST/SGOT) Alanine Aminotransferase 45 U/L (ALT/SGPT) Alkaline Phosphatase 137 U/L Total Protein 4.9 GM/DL Albumin 2.2 GM/DL Imaging Last Impressions Liver Ultrasound 07/11/16 0000 Signed Impressions: Service Date/Time: Monday, July 11, 2016 10:24 - CONCLUSION: Ascites and pleural effusions. Splenomegaly. Tiny gallstone or gallbladder polyp Qasim Edwards MD Chest X-Ray 07/11/16 0000 Signed Impressions: Service Date/Time: Monday, July 11, 2016 07:52 - CONCLUSION: 1. Endotracheal tube in appropriate position measuring approximately 3.4 cm from the naldo. 2. Stable severe diffuse airspace consolidation bilaterally. Qasim Osuna MD Chest CT 07/11/16 0000 Signed Impressions: Service Date/Time: Monday, July 11, 2016 22:37 - CONCLUSION: Bilateral pleural effusions, slight ascites and significant worsening of airspace consolidation in both lungs. Mert Laurent MD Objective Remarks GENERAL: Patient is 31yo critically ill intubated and sedated SKIN: Warm and dry. HEAD: Normocephalic. EYES: No scleral icterus. No injection or drainage. NECK: Supple, trachea midline. No JVD or lymphadenopathy. Orally intubated CARDIOVASCULAR: Regular rate and rhythm without murmurs, gallops, or rubs. RESPIRATORY: Breath sounds equal bilaterally. No accessory muscle use. GASTROINTESTINAL: Abdomen soft, non-tender, nondistended. MUSCULOSKELETAL: No cyanosis, or edema. Neuro: Sedated, intubated A/P Assessment and Plan 1. VDRF 2. Diffuse bilateral airspace disease. 3. Pleural effusions 4. Healthcare-associated pneumonia. 5. Leukocytosis...trending down 6. Anemia. 7. Elevated LFTs 8. Cirrhosis of the liver secondary to ETOH use. 9. Hypertension. 10.Recurrent ascites s/p paracentesis performed on June 30. Plan Neuro: On Diprivan and Fentanyl infusion for sedation. Monitor neuro status and daily sedation vacation Continue thiamine, multivitamins and folic acid. on rifaximin and Trental..Ammonia level < 10 Pulm: Continue with vent support and maintain sats above 92%. On PRVC/ AC RR 14, TV 500, IT 1.0, PEEP:10 and FIO2 down to 40% from 60 %. Decrease PEEP: 5 as rina. Bronchodilators, solumederol 40mg Q8 [address] guided thoracentesis today- send pleural fluid for culture and analysis Pulm is following discussed with Dr. Mckeon patient might need bronch CV: Monitor HR and BP and maintain MAP >65 mmHg. Echo from June 22 showed an EF of 50-55%. : Monitor renal function, I's and O's, and electrolyte replacement per protocol. Continue Bumex 1 mg IV daily. Albumin 12.5gms Q12 GI: On Protonix 40 mg IV daily for GI prophylaxis. Continue tube feeds- Glucerna 1.5 currently @20ml/hr advance to goal rate 45ml/hr. For CT guided paracentesis today. ID: Continue abx( cefepime, azithromycin, Vanco) ID is following. Monitor for signs of infections(Fever and WBC) Strep pneumoniae and Legionella urinary antigen negative. Blood cultures 07/09: NGTD, follow up sputum cx from 07/11 Endo: SSI with Accu-Chek q.6h. for glycemic control Heme: Monitor CBC and coags GI prophylaxis with Protonix 40 mg daily and DVT prophylaxis with SCDs and heparin subcu. CCT 30 mins Thad Mccall MD July 12, 2016 07:28
[2016-07-12] MEDS: HEPARIN SODIUM - SQ 10,000 UNITS/ML VIAL SQ SCH ×2 (08:51→20:17)
[2016-07-12] MEDS: TIOTROPIUM BROMIDE 18 MCG INH INH SCH (08:51)
[2016-07-12] MEDS: guaiFENesin E.R. 600 MG TAB PO SCH ×2 (08:51→21:00)
[2016-07-12] MEDS: FLUTICASONE PROPIONATE 110 MCG/ACT 12 GM INHALER INH SCH ×2 (08:51→21:00)
[2016-07-12] MEDS: PANTOPRAZOLE SODIUM 40 MG VIAL IV PUSH SCH (09:04)
[2016-07-12] MEDS: BUMETANIDE INJ 1 MG/4 ML VIAL IV PUSH SCH (09:04)
[2016-07-12] MEDS: ALBUMIN HUMAN 25% 12.5 GM/50 ML BAGP IV SCH ×2 (09:05→20:11)
[2016-07-12] MEDS: RIFAXIMIN 550 MG TAB PO SCH ×2 (09:05→20:16)
[2016-07-12] MEDS: THIAMINE HCL 100 MG TAB PO SCH (09:05)
[2016-07-12] MEDS: MULTIVITAMIN TAB PO SCH (09:05)
[2016-07-12] MEDS: SODIUM CHLORIDE 0.9% FLUSH 10 ML FLUSH IV FLUSH SCH ×2 (09:05→21:54)
[2016-07-12] MEDS: FOLIC ACID 1 MG TAB PO SCH (09:05)
[2016-07-12] MEDS: AZITHROMYCIN INJ 500 MG in SODIUM CHLOR 0.9% 250 ML INJ 250 ML IV SCH (09:08)
--- NOTE | 2016-07-12 09:34 | HHI.IDPN ---
Subjective Subjective Remarks Notes reviewed Temps ok BP ok D/W RN Awake on the vent [place]io and pneumo Ag negative Antibiotics Zithromax Cefepime Vancomycin Past Medical History Reviewed Allergies: Coded Allergies: No Known Allergies (Unverified , 07/09/16) Objective . Vital Signs Date Time Temp Pulse Resp B/P Pulse Ox O2 Delivery O2 Flow Rate FiO2 07/12/16 08:06 92 40 07/12/16 06:00 87 07/12/16 04:00 97.6 83 14 89/51 97 07/12/16 04:00 97 40 07/12/16 04:00 83 07/12/16 03:00 84 14 85/50 97 07/12/16 02:00 90 14 92/54 99 07/12/16 02:00 90 07/12/16 01:57 99 50 07/12/16 01:00 90 14 92/55 98 07/12/16 00:30 89 15 93/57 97 07/12/16 00:00 99 07/12/16 00:00 99.4 92 14 92/56 97 07/11/16 23:30 97 14 97/59 99 07/11/16 23:00 103 14 96/58 99 07/11/16 22:50 100 100 07/11/16 22:30 100 14 94/59 100 07/11/16 22:02 98 50 07/11/16 22:00 98 14 94/56 98 07/11/16 22:00 92 07/11/16 21:30 97 14 95/57 97 07/11/16 21:00 90 14 91/53 96 07/11/16 20:30 93 14 88/53 96 07/11/16 20:00 99.0 94 14 89/55 94 07/11/16 20:00 110 07/11/16 19:57 95 60 07/11/16 19:00 96 Mechanical Ventilator 60 07/11/16 18:00 108 07/11/16 16:00 103 07/11/16 16:00 98.8 119 17 100/58 95 07/11/16 14:55 95 60 07/11/16 14:00 111 07/11/16 12:13 92 60 07/11/16 12:00 106 07/11/16 12:00 98.2 104 18 91/55 92 07/11/16 10:00 108 07/11/16 07/11/16 07/12/16 15:00 23:00 07:00 Intake Total 748 ml 827 ml 620 ml Output Total 450 ml 300 ml 50 ml Balance 298 ml 527 ml 570 ml Intake Oral 0 ml IV Total 748 ml 777 ml 591 ml Tube Feeding 29 ml Albumin 50 ml Output Urine Total 450 ml 300 ml 50 ml Tube Feeding Residual Discard 0 ml # Bowel Movements 0 . Laboratory Tests Test 07/10/16 07/11/16 07/12/16 13:31 01:28 04:40 White Blood Count 16.2 TH/MM3 25.7 TH/MM3 18.3 TH/MM3 Red Blood Count 2.99 MIL/MM3 3.10 MIL/MM3 2.76 MIL/MM3 Hemoglobin 10.1 GM/DL 10.2 GM/DL 9.1 GM/DL Hematocrit 30.2 % 31.3 % 28.0 % Mean Corpuscular Volume 101.0 FL 100.9 FL 101.4 FL Mean Corpuscular Hemoglobin 33.9 PG 32.8 PG 33.1 PG Mean Corpuscular Hemoglobin 33.6 % 32.5 % 32.6 % Concent Red Cell Distribution Width 15.8 % 16.1 % 15.7 % Platelet Count 153 TH/MM3 145 TH/MM3 147 TH/MM3 Mean Platelet Volume 11.3 FL 11.1 FL 11.3 FL Neutrophils (%) (Auto) 93.7 % 94.6 % Lymphocytes (%) (Auto) 1.3 % 2.0 % Monocytes (%) (Auto) 4.9 % 3.2 % Eosinophils (%) (Auto) 0.0 % 0.0 % Basophils (%) (Auto) 0.1 % 0.2 % Neutrophils # (Auto) 24.0 TH/MM3 17.3 TH/MM3 Lymphocytes # (Auto) 0.3 TH/MM3 0.4 TH/MM3 Monocytes # (Auto) 1.3 TH/MM3 0.6 TH/MM3 Eosinophils # (Auto) 0.0 TH/MM3 0.0 TH/MM3 Basophils # (Auto) 0.0 TH/MM3 0.0 TH/MM3 CBC Comment DIFF FINAL DIFF FINAL Differential Comment Hematology Comments Laboratory Tests Test 07/10/16 07/11/16 07/12/16 13:31 01:28 04:40 Sodium Level 137 MEQ/L 135 MEQ/L 133 MEQ/L Potassium Level 3.8 MEQ/L 4.1 MEQ/L 4.1 MEQ/L Chloride Level 98 MEQ/L 97 MEQ/L 97 MEQ/L Carbon Dioxide Level 26.6 MEQ/L 25.7 MEQ/L 24.0 MEQ/L Anion Gap 12 MEQ/L 12 MEQ/L 12 MEQ/L Blood Urea Nitrogen 18 MG/DL 21 MG/DL 27 MG/DL Creatinine 0.72 MG/DL 0.90 MG/DL 0.86 MG/DL Estimat Glomerular Filtration 93 ML/MIN 72 ML/MIN 76 ML/MIN Rate Random Glucose 185 MG/DL 122 MG/DL 140 MG/DL Calcium Level 8.3 MG/DL 8.1 MG/DL 7.7 MG/DL Total Bilirubin 2.9 MG/DL 2.5 MG/DL 2.2 MG/DL Aspartate Amino Transf 61 U/L 57 U/L 48 U/L (AST/SGOT) Alanine Aminotransferase 54 U/L 60 U/L 45 U/L (ALT/SGPT) Alkaline Phosphatase 162 U/L 181 U/L 137 U/L B-Type Natriuretic Peptide 809 PG/ML 529 PG/ML Total Protein 5.4 GM/DL 5.7 GM/DL 4.9 GM/DL Albumin 2.3 GM/DL 2.5 GM/DL 2.2 GM/DL Magnesium Level 1.8 MG/DL 1.7 MG/DL 1.7 MG/DL Ammonia LESS THAN 10 MCMOL/L Phosphorus Level 3.0 MG/DL Microbiology Date/Time Procedure Status Source Growth 07/09/16 15:45 Aerobic Blood Culture - Preliminary Resulted Blood Peripheral NO GROWTH IN 2 DAYS 07/09/16 15:45 Anaerobic Blood Culture - Preliminary Resulted Blood Peripheral NO GROWTH IN 2 DAYS 07/09/16 16:15 Aerobic Blood Culture - Preliminary Resulted Blood Peripheral NO GROWTH IN 2 DAYS 07/09/16 16:15 Anaerobic Blood Culture - Preliminary Resulted Blood Peripheral NO GROWTH IN 2 DAYS 07/11/16 11:22 Gram Stain - Final Resulted Sputum Expectorated Sputum 07/11/16 11:22 Sputum Culture Resulted Sputum Expectorated Sputum Pending 07/11/16 11:22 Legionella Antigen - Final Complete Urine Catheterized Urine PRESUMPTIVE NEGATIVE FOR LEGIONELLA P... 07/11/16 11:22 Streptococcus pneumoniae Antigen (M - Final Complete Urine Catheterized Urine PRESUMPTIVE NEGATIVE FOR STREPTOCOCCU... Imaging Liver Ultrasound 07/11/16 0000 Signed Impressions: Service Date/Time: Monday, July 11, 2016 10:24 - CONCLUSION: Ascites and pleural effusions. Splenomegaly. Tiny gallstone or gallbladder polyp Qasim Edwards MD Chest X-Ray 07/11/16 Signed Impressions: Service Date/Time: Monday, July 11, 2016 07:52 - CONCLUSION: 1. Endotracheal tube in appropriate position measuring approximately 3.4 cm from the naldo. 2. Stable severe diffuse airspace consolidation bilaterally. Qasim Osuna MD Chest CT 07/11/16 Signed Impressions: Service Date/Time: Monday, July 11, 2016 22:37 - CONCLUSION: Bilateral pleural effusions, slight ascites and significant worsening of airspace consolidation in both lungs. Mert Laurent MD Physical Exam GENERAL: awake and alert, not in respiratory distress. SKIN: Warm and dry. Has jaundice. Has spider angiomata in her upper chest HEAD: Atraumatic. Normocephalic. No temporal wasting, or tenderness. EYES: [place] conjunctiva. No petechia or hemorrhage. Has scleral icterus. No injection or drainage. EARS, NOSE AND THROAT: Nose without bleeding or purulent nasal discharge. No sinus tenderness. She is orally intubated. NECK: Trachea midline. Supple and not tender, no meningeal signs CARDIOVASCULAR: Regular rate and rhythm. No murmurs, rubs or gallops heard RESPIRATORY: Coarse BS bilaterally. Breath sounds equal bilaterally. Decreased at the bases ABDOMEN: Soft, mildly distended, bowel sounds present and normoactive, with mild diffuse tenderness, no guarding or rebound. Liver tender and enlarged. EXTREMITIES: No clubbing, or cyanosis. Has bilateral pitting edema. Both feet well perfused and warm. NEUROLOGICAL: awake, responding PSYCHIATRIC: Unable to fully assess : Cleaning in place, urine looks ok LINE: No evidence of infection Assessment & Plan Remarks IMPRESSION Bilateral infiltrates, worsening in very acute progression, likely more inflammatory, ?ARDS - ?new PNA, she has not had any worsening of her cough or congestion, too rapid a development Respiratory failure ETOH hepatitis Leukocytosis RECOMMENDATION Check cultures Will get atypical serologies ?Should she get lung biopsy She is on broad spectrum Abx started by primary and transportation security officer and continue for now Monitor progress For thoracentesis today Pulmonary following D/W Whit Magaña MD July 12, 2016 09:34
--- NOTE | 2016-07-12 11:14 | RADRPT ---
EXAM DATE/TIME: 07/12/2016 11:08 [facility] COMPARISON: CHEST SINGLE AP, July 11, 2016, 7:52. INDICATIONS : Post thoracentesis right lung MEDICAL HISTORY : None. SURGICAL HISTORY : None. ENCOUNTER: Initial ACUITY: 1 day PAIN SCORE: Non-responsive. LOCATION: Right chest FINDINGS: The cardiac silhouette is enlarged in transverse diameter. There is left lower lobe atelectasis versu s pneumonia. There is no evidence of pneumothorax. Support lines and tubes are in satisfactory posit ion. CONCLUSION: 1. No evidence of pneumothorax following thoracentesis. Jamaal Eastman MD on July 12, 2016 at 11:12 Board Certified Radiologist. This report was verified electronically.
[2016-07-12] MEDS ORDERED: LIDOCAINE HCL 1% PF 30 ML VIAL ONE (12:25)
[2016-07-12 13:27] LABS: PLEURAL FLUID LYMPHS 29 %
[2016-07-12 13:51] LABS: TOTAL PROTEIN,PLEURAL FLUID 0.9 GM/DL
[2016-07-12 14:03] LABS: PERITONEAL HISTIOCYTES 4 %; PERITONEAL LYMPHS 40 %; PERITONEAL MESOTHELIAL 4 %; PERITONEAL MONOS 28 %; PERITONEAL POLYS(SEGS) 24 %; PERITONEAL WBC 6 /MM3 (0-10)
[2016-07-12] MEDS ORDERED: PHARMACY ORDERED LAB ONE (14:45)
--- NOTE | 2016-07-12 14:57 | RADRPT ---
EXAM DATE/TIME: 07/12/2016 10:17 [facility] COMPARISON: No previous studies available for comparison. INDICATIONS : Pleural effusion. MEDICAL HISTORY : Cirrhosis. ETOH abuse Abdominal pain. Nausea and vomiting. Pleural effusion. Respiratory failure. SURGICAL HISTORY : Paracentesis. Knee surgery. ENCOUNTER: Initial ACUITY: 1 day PAIN SCORE: Non-responsive LOCATION: Right chest FLUID: Total volume of 800 cc of clear, yellow fluid was removed. Fluid was discarded. Thoracentesis was therapeutic only. TECHNIQUE: 1. Ultrasound guidance for thoracentesis. 2. Thoracentesis. The risks, benefits, and alternatives to ultrasound guided thoracentesis were explained to the patien t in lay simple terms, including the risk of bleeding and infection. Written and verbal informed con sent was obtained. Appropriate area for thoracentesis was marked under ultrasound guidance with the patient in the uprig ht position. Overlying skin was prepped and draped in the usual sterile fashion and with local anest hetic, a dermatotomy was made with an 11 blade scalpel. A 6 [place] thoracentesis catheter was placed in the pleural space and fluid was removed. Catheter was then removed and a sterile dressing applie d. There were no immediate complications. The patient tolerated the procedure well and the left the ultrasound suite in stable condition. Chest radiograph is to be obtained. CONCLUSION: Uncomplicated ultrasound guided thoracentesis. Garret Verma MD on July 12, 2016 at 14:56 Board Certified Radiologist. This report was verified electronically.
--- NOTE | 2016-07-12 14:58 | RADRPT ---
EXAM DATE/TIME: 07/12/2016 10:17 [facility] COMPARISON: No previous studies available for comparison. INDICATIONS : Ascites. MEDICAL HISTORY : Cirrhosis. ETOH abuse Abdominal pain. Nausea and vomiting. Pleural effusion. Respiratory failure. SURGICAL HISTORY : Right knee surgery . Paracentesis. Vented. ENCOUNTER: Subsequent ACUITY: 2 weeks PAIN SCORE: Non-responsive LOCATION: Left lower quadrant FLUID: Total volume of 4300 cc of clear, yellow fluid was removed. Fluid was sent to lab for ordered studies. Post procedure scanning reveals no hematoma or other complication. TECHNIQUE: 1. Ultrasound guidance for abdominal paracentesis. 2. Paracentesis. The risks, benefits, and alternatives to ultrasound guided paracentesis were explained to the patient in detail including the risk of bleeding and infection. Written and verbal informed consent was obt ained. With the patient on the ultrasound table, ultrasound imaging was used to select the most appropriate approach for paracentesis. Overlying skin was prepped and draped in the usual sterile fashion and wi th a local anesthetic, a dermatotomy was made with an 11 blade scalpel. A 6 [place] [id number] ca theter was introduced into the peritoneal cavity and fluid was collected. The patient tolerated the procedure well and left the ultrasound suite in stable condition. CONCLUSION: Uncomplicated ultrasound guided paracentesis. Garret Verma MD on July 12, 2016 at 14:56 Board Certified Radiologist. This report was verified electronically.
--- NOTE | 2016-07-12 18:55 | HHI.PR ---
Subjective Remarks 31 YOWFw ith VDRF,Lung infilt,Pl effusion had Paracentesis,4.2 L fluid removed Had Thoracentesis Weaned to CPAP Fi02 decreased to 40% Objective Vital Signs Vital Signs Date Time Temp Pulse Resp B/P Pulse Ox O2 Delivery O2 Flow Rate FiO2 07/12/16 18:00 119 07/12/16 16:17 96 40 07/12/16 16:00 98.1 120 13 102/52 95 07/12/16 16:00 120 07/12/16 14:00 117 07/12/16 12:00 85 07/12/16 12:00 97 14 102/58 100 07/12/16 11:49 100 40 07/12/16 10:10 100 40 07/12/16 10:00 87 07/12/16 08:06 92 40 07/12/16 08:00 93 07/12/16 08:00 97.5 82 14 88/52 91 Manual Cuff/Auscultation 07/12/16 06:00 87 07/12/16 04:00 97.6 83 14 89/51 97 07/12/16 04:00 97 40 07/12/16 04:00 83 07/12/16 03:00 84 14 85/50 97 07/12/16 02:00 90 14 92/54 99 07/12/16 02:00 90 07/12/16 01:57 99 50 07/12/16 01:00 90 14 92/55 98 07/12/16 00:30 89 15 93/57 97 07/12/16 00:00 99 07/12/16 00:00 99.4 92 14 92/56 97 07/11/16 23:30 97 14 97/59 99 07/11/16 23:00 103 14 96/58 99 07/11/16 22:50 100 100 07/11/16 22:30 100 14 94/59 100 07/11/16 22:02 98 50 07/11/16 22:00 98 14 94/56 98 07/11/16 22:00 92 07/11/16 21:30 97 14 95/57 97 07/11/16 21:00 90 14 91/53 96 07/11/16 20:30 93 14 88/53 96 07/11/16 20:00 99.0 94 14 89/55 94 07/11/16 20:00 110 07/11/16 19:57 95 60 07/11/16 19:00 96 Mechanical Ventilator 60 I/O 07/11/16 07/11/16 07/11/16 07/12/16 07/12/16 07/12/16 06:59 14:59 22:59 06:59 14:59 22:59 Intake Total 748 ml 827 ml 620 ml 1428 ml Output Total 500 ml 450 ml 300 ml 50 ml 650 ml Balance -500 ml 298 ml 527 ml 570 ml 778 ml Intake Oral 0 ml IV Total 748 ml 777 ml 591 ml 778 ml Tube Feeding 29 ml 650 ml Albumin 50 ml Output Urine Total 500 ml 450 ml 300 ml 50 ml 650 ml Tube Feeding Residual Discard 0 ml 0 ml # Bowel Movements 0 Result Diagram: 07/12/1643907/12/16439 Objective Remarks GENERAL: MBMN WF with RF SKIN: Warm and dry. HEAD: Normocephalic. EYES: No scleral icterus. No injection or drainage. NECK: Supple, trachea midline. No JVD or lymphadenopathy. CARDIOVASCULAR: Regular rate and rhythm without murmurs, gallops, or rubs. RESPIRATORY: Breath sounds equal bilaterally. No accessory muscle use. Bilat rales GASTROINTESTINAL: Abdomen soft, non-tender, nondistended. MUSCULOSKELETAL: No cyanosis, ++ edema. BACK: Nontender without obvious deformity. No CVA tenderness. A/P Assessment and Plan VDRF Bilat lung infilt Pleural effusion Ascitis PLAN: Vent support CPAP trial Diurease Cont Abx per iD Tomi Mckeon MD July 12, 2016 18:54
[2016-07-13] VITALS (19 sets, daily range): BP systolic 89–149; BP diastolic 51–88; PULSE 90–128; RESP 14–38; TEMP 97.5–98.2; O2SAT 9–100
[2016-07-13] MEDS: RESP: ALBUTEROL 2.5 MG/IPRATROPIUM 0.5 MG NEB (SCH) NEB ×7 (00:30→23:17)
[2016-07-13] MEDS: PROPOFOL 1000 MG/100 ML INJ 100 ML IV SCH ×5 (01:33→21:20)
[2016-07-13] MEDS: INSULIN NovoLIN REGULAR SUPPLEMENTAL SCALE SQ SCH ×6 (01:33→20:00)
[2016-07-13] MEDS: methylPREDNISolone SOD SUCC 125 MG/2 ML VIAL IV PUSH SCH ×2 (04:12→15:23)
[2016-07-13] MEDS: PENTOXIFYLLINE 400 MG CONTROLLED RELEASE TAB PO SCH ×3 (04:12→22:00)
[2016-07-13] MEDS: DOCUSATE SODIUM 100 MG CAP PO SCH ×2 (04:15→17:47)
[2016-07-13 05:37] LABS: AUTOMATED NEUTROPHIL # 16.5 TH/MM3 (1.8-7.7); BASOPHIL # 0.1 TH/MM3 (0-0.2); BASOPHIL % 0.7 % (0.0-2.0); HEMATOCRIT 28.3 % (35.0-46.0); HEMO FLAGS DIFF FINAL; LYMPH % 1.7 % (9.0-44.0); LYMPHOCYTE # 0.3 TH/MM3 (1.0-4.8); MEAN CELL VOLUME 100.5 FL (80.0-100.0); MEAN CORPUSCULAR HEMOGLOBIN 33.3 PG (27.0-34.0); MEAN CORPUSCULAR HGB CONC 33.1 % (32.0-36.0); MONO % 2.9 % (0.0-8.0); NEUT % 94.7 % (16.0-70.0); PLATELET COUNT 129 TH/MM3 (150-450); RED BLOOD COUNT 2.81 MIL/MM3 (4.00-5.30); RED CELL DISTRIBUTION WIDTH 15.5 % (11.6-17.2); WHITE BLOOD COUNT 17.4 TH/MM3 (4.0-11.0)
[2016-07-13 06:01] LABS: BICARBONATE 27.9 MEQ/L (21.0-32.0); POTASSIUM 4.1 MEQ/L (3.5-5.1)
[2016-07-13] MEDS: CEFEPIME INJ 2,000 MG in SODIUM CHLORIDE 0.9% INJ 100 ML IV SCH ×2 (06:16→15:22)
--- NOTE | 2016-07-13 08:37 | HHI.CCPN ---
Subjective Remarks/Hospital Course The patient is a 31-year-old female with past medical history of ETOH hepatitis , ascites and cirrhosis of the liver with ETOH use who was admitted to [facility] on July 09 for healthcare-associated pneumonia. She had a chest x-ray on July 09 which showed diffuse consolidation and bilateral pleural effusions, likely representing pulmonary edema. The patient was recently discharged from the hospital after she was admitted back on June 10. On her prior admission she had an echocardiogram on June 22 which showed an EF of 50-55%. The patient also had paracentesis performed on June 30 with removal of 1.8 liters of ascitic fluid and she had a thoracentesis performed on the right on June 16 with removal of 800 cc of transudative pleural fluid. The patient was admitted under the hospitalists service and was started on broad -spectrum antibiotics for healthcare-associated pneumonia. A HaliCAT was called for respiratory distress and the patient was given Lasix at approximately 2 o'clock this morning and transferred to [facility]. Critical care medicine was consulted for respiratory distress. Her laboratory data showed worsening leukocytosis with a WBC of 25.7 from 16.2. Her BNP is 529 from 809. Ammonia level less than 10. A repeat chest x-ray showed worsening airspace process. The patient was placed on BiPAP 10/5 with 95% FIO2 and her initial saturation was 98%. When her FIO2 was weaned down she dropped her saturation and initially she refused intubation. She was just given additional Bumex 1 mg IV x1 and Solu-Medrol 80 mg IV push x1. The patient denies any nausea, vomiting or abdominal pain. 07/12 Patient was intubated yesterday for resp failure sedated with Diprivan and Fentanyl. WBC trending down. Afebrile. 07/13 Patient remains intubated and sedated with Diprivan off Fentanyl drip. s/p Right sided thoracentesis yesterday with removal 800ml pleural fluid and CT guided paracentesis with removal 4.3L. Objective Vital Signs Date Time Temp Pulse Resp B/P Pulse Ox O2 Delivery O2 Flow Rate FiO2 07/13/16 08:00 9 40 07/13/16 06:00 92 07/13/16 04:00 97.8 22 94/51 07/11/16 19:00 Mechanical Ventilator 07/11/16 05:30 15.00 Intake and Output 07/12/16 07/12/16 07/13/16 08:00 16:00 00:00 Intake Total 620 ml 1428 ml 477 ml Output Total 50.0 ml 650 ml 275 ml Balance 570.0 ml 778 ml 202 ml Result Diagram: 07/13/16 0511 07/13/16 0511 Other Results Laboratory Tests Test 07/12/16 07/12/16 07/12/16 07/13/16 10:35 10:42 15:10 05:11 Peritoneal Fluid WBC 6 /MM3 Peritoneal Fluid RBC 17 /MM3 Peritoneal Fluid Neutrophils 24 % Peritoneal Fluid Lymphocytes 40 % Peritoneal Fluid Monocytes 28 % Peritoneal Fluid Mesothelial 4 % Cells Peritoneal Fluid Histiocytes 4 % Peritoneal Fluid Total Protein 1.1 GM/DL Peritoneal Fluid Albumin 0.5 G/DL Peritoneal Fluid LDH 47 U/L Peritoneal Fluid Glucose 160 MG/DL Pleural Fluid pH 8.0 Pleural Fluid WBC 138 /MM3 Pleural Fluid RBC 1779 /MM3 Pleural Fluid Neutrophils 48 % Pleural Fluid Lymphocytes 29 % Pleural Fluid Monocytes 17 % Pleural Fluid Histiocytes 3 % Pleural Fluid Mesothelial 3 % Cells Pleural Fluid Total Protein 0.9 GM/DL Pleural Fluid LDH 162 U/L Pleural Fluid Glucose 156 MG/DL Vancomycin Level Trough 31.9 MCG/ML White Blood Count 17.4 TH/MM3 Red Blood Count 2.81 MIL/MM3 Hemoglobin 9.4 GM/DL Hematocrit 28.3 % Mean Corpuscular Volume 100.5 FL Mean Corpuscular Hemoglobin 33.3 PG Mean Corpuscular Hemoglobin 33.1 % Concent Red Cell Distribution Width 15.5 % Platelet Count 129 TH/MM3 Mean Platelet Volume 10.8 FL Neutrophils (%) (Auto) 94.7 % Lymphocytes (%) (Auto) 1.7 % Monocytes (%) (Auto) 2.9 % Eosinophils (%) (Auto) 0.0 % Basophils (%) (Auto) 0.7 % Neutrophils # (Auto) 16.5 TH/MM3 Lymphocytes # (Auto) 0.3 TH/MM3 Monocytes # (Auto) 0.5 TH/MM3 Eosinophils # (Auto) 0.0 TH/MM3 Basophils # (Auto) 0.1 TH/MM3 CBC Comment DIFF FINAL Differential Comment Sodium Level 136 MEQ/L Potassium Level 4.1 MEQ/L Chloride Level 100 MEQ/L Carbon Dioxide Level 27.9 MEQ/L Anion Gap 8 MEQ/L Blood Urea Nitrogen 36 MG/DL Creatinine 1.03 MG/DL Estimat Glomerular Filtration 62 ML/MIN Rate Random Glucose 155 MG/DL Calcium Level 7.8 MG/DL Random Vancomycin Level 20.7 COMMENT Imaging Last Impressions Thoracentesis Ultrasound 07/12/16 0000 Signed Impressions: Service Date/Time: Tuesday, July 12, 2016 10:17 - CONCLUSION: Uncomplicated ultrasound guided thoracentesis. Garret Verma MD Cyst Biopsy Asp-Paracentesis US 07/12/16 Signed Impressions: Service Date/Time: Tuesday, July 12, 2016 10:17 - CONCLUSION: Uncomplicated ultrasound guided paracentesis. Garret Verma MD Chest X-Ray 07/12/16 Signed Impressions: Service Date/Time: Tuesday, July 12, 2016 11:08 - CONCLUSION: 1. No evidence of pneumothorax following thoracentesis. Jamaal Eastman MD Liver Ultrasound 07/11/16 0000 Signed Impressions: Service Date/Time: Monday, July 11, 2016 10:24 - CONCLUSION: Ascites and pleural effusions. Splenomegaly. Tiny gallstone or gallbladder polyp Qasim Edwarsd MD Chest CT 07/11/16 0000 Signed Impressions: Service Date/Time: Monday, July 11, 2016 22:37 - CONCLUSION: Bilateral pleural effusions, slight ascites and significant worsening of airspace consolidation in both lungs. Mert Laurent MD Objective Remarks GENERAL: Patient is 31yo critically ill intubated and sedated SKIN: Warm and dry. HEAD: Normocephalic. EYES: No scleral icterus. No injection or drainage. NECK: Supple, trachea midline. No JVD or lymphadenopathy. Orally intubated CARDIOVASCULAR: Regular rate and rhythm without murmurs, gallops, or rubs. RESPIRATORY: Breath sounds equal bilaterally. No accessory muscle use. GASTROINTESTINAL: Abdomen soft, non-tender, nondistended. MUSCULOSKELETAL: No cyanosis, or edema. Neuro: Sedated, intubated A/P Assessment and Plan 1. VDRF 2. Diffuse bilateral airspace disease...improved 3. Pleural effusions s/p Right sided thoracentesis with removal 800ml pleural fluid 07/12 4. Healthcare-associated pneumonia. 5. Leukocytosis...trending down 6. Anemia. 7. Elevated LFTs 8. Cirrhosis of the liver secondary to ETOH use. 9. Hypertension. 10.Recurrent ascites s/p paracentesis performed on June 30. s/p paracentesis on 07/12 with removal 4.3L. Plan Neuro: On Diprivan infusion for sedation. Monitor neuro status and daily sedation vacation Continue thiamine, multivitamins and folic acid. on rifaximin and Trental..Ammonia level < 10 Pulm: Continue with vent support and maintain sats above 92%. On PRVC/ AC RR 14, TV 500, IT 1.0, PEEP:5 and FIO2 40% Bronchodilators, solumederol 40mg Q8 s/p CT guided thoracentesis 07/12 with removal 800ml 0 transudative effusion. Follow up on pleural fluid for culture Pulm is following- Dr. Mckeon patient might need bronch Start SBT trials daily as rina. CV: Monitor HR and BP and maintain MAP >65 mmHg. Echo from June 22 showed an EF of 50-55%. : Monitor renal function, I's and O's, and electrolyte replacement per protocol. Continue Bumex 1 mg IV daily. Albumin 12.5gms Q12 s/p CT guided paracentesis with removal 4.3L. Follow up on cultures GI: On Protonix 40 mg IV daily for GI prophylaxis. Continue tube feeds- Glucerna 1.5 with goal rate 45ml/hr. ID: Continue abx( cefepime, azithromycin, Vanco) ID is following. Monitor for signs of infections(Fever and WBC) Strep pneumoniae and Legionella urinary antigen negative. Blood cultures 07/09: NGTD, sputum cx from 07/11: NGTD Endo: SSI with Accu-Chek q.6h. for glycemic control Heme: Monitor CBC and coags GI prophylaxis with Protonix 40 mg daily and DVT prophylaxis with SCDs and heparin subcu. Level 3 Thad Mccall MD July 13, 2016 08:36
[2016-07-13] MEDS: TIOTROPIUM BROMIDE 18 MCG INH INH SCH (09:00)
[2016-07-13] MEDS: FLUTICASONE PROPIONATE 110 MCG/ACT 12 GM INHALER INH SCH ×2 (09:00→21:00)
[2016-07-13] MEDS: AZITHROMYCIN INJ 500 MG in SODIUM CHLOR 0.9% 250 ML INJ 250 ML IV SCH (09:10)
[2016-07-13] MEDS: SODIUM CHLORIDE 0.9% FLUSH 10 ML FLUSH IV FLUSH SCH ×2 (09:10→21:21)
[2016-07-13] MEDS: BUMETANIDE INJ 1 MG/4 ML VIAL IV PUSH SCH (09:11)
[2016-07-13] MEDS: HEPARIN SODIUM - SQ 10,000 UNITS/ML VIAL SQ SCH ×2 (09:12→20:52)
[2016-07-13] MEDS: guaiFENesin E.R. 600 MG TAB PO SCH ×2 (09:12→21:00)
[2016-07-13] MEDS: RIFAXIMIN 550 MG TAB PO SCH ×2 (09:12→21:20)
[2016-07-13] MEDS: PANTOPRAZOLE SODIUM 40 MG VIAL IV PUSH SCH (09:12)
[2016-07-13] MEDS: FOLIC ACID 1 MG TAB PO SCH (09:12)
[2016-07-13] MEDS: THIAMINE HCL 100 MG TAB PO SCH (09:12)
[2016-07-13] MEDS: MULTIVITAMIN TAB PO SCH (09:12)
[2016-07-13] MEDS: ALBUMIN HUMAN 25% 12.5 GM/50 ML BAGP IV SCH ×2 (09:13→20:53)
--- NOTE | 2016-07-13 10:06 | HHI.IDPN ---
Subjective Subjective Remarks Notes reviewed D/W RN Temps ok BP ok Sedated on the vent For bronch today Has thick secretions from ER CXR looks better especially the R side Had R tap 07/12 - 800 ml out, transudate Had paracentesis - 4.3L removed, looks transudative Awake on the vent Legio and pneumo Ag negative BC negative Sputum neg 48 hours Mycoplasma Ab negative Chlamydia and Legionella Ab pending Antibiotics Zithromax Cefepime Vancomycin Past Medical History Reviewed Allergies: Coded Allergies: No Known Allergies (Unverified , 07/09/16) Objective . Vital Signs Date Time Temp Pulse Resp B/P Pulse Ox O2 Delivery O2 Flow Rate FiO2 07/13/16 08:00 9 40 07/13/16 06:00 92 07/13/16 04:00 97.8 95 22 94/51 94 07/13/16 04:00 95 07/13/16 03:30 95 40 07/13/16 02:00 103 07/13/16 00:30 94 40 07/13/16 00:00 99 07/13/16 00:00 97.6 99 22 100/61 99 07/12/16 22:00 114 07/12/16 21:20 99 40 07/12/16 20:00 109 07/12/16 20:00 97.6 99 22 100/61 99 07/12/16 18:00 119 07/12/16 16:17 96 40 07/12/16 16:00 98.1 120 13 102/52 95 07/12/16 16:00 120 07/12/16 14:00 117 07/12/16 12:00 85 07/12/16 12:00 97 14 102/58 100 07/12/16 11:49 100 40 07/12/16 10:10 100 40 07/12/16 07/12/16 07/13/16 15:00 23:00 07:00 Intake Total 1428 ml 477 ml 580 ml Output Total 650 ml 275 ml 300 ml Balance 778 ml 202 ml 280 ml IV Total 778 ml 117 ml 193 ml Tube Feeding 650 ml 110 ml 187 ml Albumin 50 ml Other 200 ml 200 ml Output Urine Total 650 ml 200 ml 300 ml Gastric Drainage Total 75 ml Tube Feeding Residual Discard 0 ml 0 ml . Laboratory Tests Test 07/12/16 07/13/16 04:40 05:11 White Blood Count 18.3 TH/MM3 17.4 TH/MM3 Red Blood Count 2.76 MIL/MM3 2.81 MIL/MM3 Hemoglobin 9.1 GM/DL 9.4 GM/DL Hematocrit 28.0 % 28.3 % Mean Corpuscular Volume 101.4 FL 100.5 FL Mean Corpuscular Hemoglobin 33.1 PG 33.3 PG Mean Corpuscular Hemoglobin 32.6 % 33.1 % Concent Red Cell Distribution Width 15.7 % 15.5 % Platelet Count 147 TH/MM3 129 TH/MM3 Mean Platelet Volume 11.3 FL 10.8 FL Neutrophils (%) (Auto) 94.6 % 94.7 % Lymphocytes (%) (Auto) 2.0 % 1.7 % Monocytes (%) (Auto) 3.2 % 2.9 % Eosinophils (%) (Auto) 0.0 % 0.0 % Basophils (%) (Auto) 0.2 % 0.7 % Neutrophils # (Auto) 17.3 TH/MM3 16.5 TH/MM3 Lymphocytes # (Auto) 0.4 TH/MM3 0.3 TH/MM3 Monocytes # (Auto) 0.6 TH/MM3 0.5 TH/MM3 Eosinophils # (Auto) 0.0 TH/MM3 0.0 TH/MM3 Basophils # (Auto) 0.0 TH/MM3 0.1 TH/MM3 CBC Comment DIFF FINAL DIFF FINAL Differential Comment Laboratory Tests Test 07/12/16 07/13/16 04:40 05:11 Sodium Level 133 MEQ/L 136 MEQ/L Potassium Level 4.1 MEQ/L 4.1 MEQ/L Chloride Level 97 MEQ/L 100 MEQ/L Carbon Dioxide Level 24.0 MEQ/L 27.9 MEQ/L Anion Gap 12 MEQ/L 8 MEQ/L Blood Urea Nitrogen 27 MG/DL 36 MG/DL Creatinine 0.86 MG/DL 1.03 MG/DL Estimat Glomerular Filtration 76 ML/MIN 62 ML/MIN Rate Random Glucose 140 MG/DL 155 MG/DL Calcium Level 7.7 MG/DL 7.8 MG/DL Phosphorus Level 3.0 MG/DL Magnesium Level 1.7 MG/DL Total Bilirubin 2.2 MG/DL Aspartate Amino Transf 48 U/L (AST/SGOT) Alanine Aminotransferase 45 U/L (ALT/SGPT) Alkaline Phosphatase 137 U/L Total Protein 4.9 GM/DL Albumin 2.2 GM/DL B-Type Natriuretic Peptide 380 PG/ML Microbiology Date/Time Procedure Status Source Growth 07/11/16 11:22 Gram Stain - Final Complete Sputum Expectorated Sputum 07/11/16 11:22 Sputum Culture - Final Complete Sputum Expectorated Sputum NO GROWTH IN 48 HOURS. 07/11/16 11:22 Legionella Antigen - Final Complete Urine Catheterized Urine PRESUMPTIVE NEGATIVE FOR LEGIONELLA P... 07/11/16 11:22 Streptococcus pneumoniae Antigen (M - Final Complete Urine Catheterized Urine PRESUMPTIVE NEGATIVE FOR STREPTOCOCCU... 07/12/16 10:35 Gram Stain - Final Resulted Fluid Peritoneal Fluid 07/12/16 10:35 Body Fluid Culture Resulted Fluid Peritoneal Fluid Pending 07/12/16 10:35 Gram Stain Received Fluid Pleural Fluid Pending 07/12/16 10:35 Body Fluid Culture Received Fluid Pleural Fluid Pending 07/12/16 10:35 Acid Fast Stain Received Fluid Pleural Fluid Pending 07/12/16 10:35 Mycobacterial Culture Received Fluid Pleural Fluid Pending 07/12/16 10:35 Fungal Smear Received Fluid Pleural Fluid Pending 07/12/16 10:35 Fungal Culture Received Fluid Pleural Fluid Pending 07/12/16 10:42 Gram Stain Received Fluid Pleural Fluid Pending 07/12/16 10:42 Body Fluid Culture Received Fluid Pleural Fluid Pending 07/12/16 10:42 Acid Fast Stain Received Fluid Pleural Fluid Pending 07/12/16 10:42 Mycobacterial Culture Received Fluid Pleural Fluid Pending 07/12/16 10:42 Fungal Smear Received Fluid Pleural Fluid Pending 07/12/16 10:42 Fungal Culture Received Fluid Pleural Fluid Pending Imaging Last 48 hours Impressions Thoracentesis Ultrasound 07/12/16 0000 Signed Impressions: Service Date/Time: Tuesday, July 12, 2016 10:17 - CONCLUSION: Uncomplicated ultrasound guided thoracentesis. Garret Verma MD Cyst Biopsy Asp-Paracentesis US 07/12/16 0000 Signed Impressions: Service Date/Time: Tuesday, July 12, 2016 10:17 - CONCLUSION: Uncomplicated ultrasound guided paracentesis. Garret Verma MD Chest X-Ray 07/12/16 0000 Signed Impressions: Service Date/Time: Tuesday, July 12, 2016 11:08 - CONCLUSION: 1. No evidence of pneumothorax following thoracentesis. Jamaal Eastman MD Liver Ultrasound 07/11/16 Signed Impressions: Service Date/Time: Monday, July 11, 2016 10:24 - CONCLUSION: Ascites and pleural effusions. Splenomegaly. Tiny gallstone or gallbladder polyp Qasim Edwards MD Chest X-Ray 07/11/16 Signed Impressions: Service Date/Time: Monday, July 11, 2016 07:52 - CONCLUSION: 1. Endotracheal tube in appropriate position measuring approximately 3.4 cm from the naldo. 2. Stable severe diffuse airspace consolidation bilaterally. Qasim Osuna MD Chest CT 07/11/16 Signed Impressions: Service Date/Time: Monday, July 11, 2016 22:37 - CONCLUSION: Bilateral pleural effusions, slight ascites and significant worsening of airspace consolidation in both lungs. Mert Laurent MD Physical Exam GENERAL: awake and alert, not in respiratory distress. SKIN: Warm and dry. Has jaundice. Has spider angiomata in her upper chest HEAD: Atraumatic. Normocephalic. No temporal wasting, or tenderness. EYES: [place] conjunctiva. No petechia or hemorrhage. Has scleral icterus. No injection or drainage. EARS, NOSE AND THROAT: Nose without bleeding or purulent nasal discharge. No sinus tenderness. She is orally intubated. NECK: Trachea midline. Supple and not tender, no meningeal signs CARDIOVASCULAR: Regular rate and rhythm. No murmurs, rubs or gallops heard RESPIRATORY: Coarse BS bilaterally. Breath sounds equal bilaterally. Decreased at the bases ABDOMEN: Soft, mildly distended, bowel sounds present and normoactive, with mild diffuse tenderness, no guarding or rebound. Liver tender and enlarged. EXTREMITIES: No clubbing, or cyanosis. Has bilateral pitting edema. Both feet well perfused and warm. NEUROLOGICAL: awake, responding PSYCHIATRIC: Unable to fully assess : Cleaning in place, urine looks ok LINE: No evidence of infection Assessment & Plan Remarks IMPRESSION Bilateral infiltrates, worsening in very acute progression, likely more inflammatory, ?ARDS - ?new PNA, she has not had any worsening of her cough or congestion, too rapid a development - CXR also today is better, which would go more with fluid, ?inflammatory Respiratory failure ETOH hepatitis Leukocytosis, better RECOMMENDATION Follow C/S On vanco, Cefepime and Zithromax For bronch today Monitor progress Pulmonary following I wll follow with you D/W Whit Magaña MD July 13, 2016 10:06
[2016-07-13] MEDS ORDERED: SODIUM BICARBONATE 8.4% INJ 50 MEQ/50 ML SYR ONE (10:48)
[2016-07-13] MEDS ORDERED: VANCOMYCIN INJ 1,250 MG in SODIUM CHLOR 0.9% 250 ML INJ 250 ML IV ONE (11:00)
--- NOTE | 2016-07-13 15:42 | HHI.PR ---
Subjective Remarks 31 YOWFw ith VDRF,Lung infilt,Pl effusion had Paracentesis,4.2 L fluid removed Had Thoracentesis Had bronch today, tolerayed well Objective Vital Signs Vital Signs Date Time Temp Pulse Resp B/P Pulse Ox O2 Delivery O2 Flow Rate FiO2 07/13/16 15:34 93 35 07/13/16 12:09 95 40 07/13/16 08:00 9 40 07/13/16 08:00 90 07/13/16 08:00 98.0 114 38 122/66 95 07/13/16 06:00 92 07/13/16 04:00 97.8 95 22 94/51 94 07/13/16 04:00 95 07/13/16 03:30 95 40 07/13/16 02:00 103 07/13/16 00:30 94 40 07/13/16 00:00 99 07/13/16 00:00 97.6 99 22 100/61 99 07/12/16 22:00 114 07/12/16 21:20 99 40 07/12/16 20:00 109 07/12/16 20:00 97.6 99 22 100/61 99 07/12/16 18:00 119 07/12/16 16:17 96 40 07/12/16 16:00 98.1 120 13 102/52 95 07/12/16 16:00 120 I/O 07/12/16 07/12/16 07/12/16 07/13/16 07/13/16 07/13/16 07:00 15:00 23:00 07:00 15:00 23:00 Intake Total 620 ml 1428 ml 477 ml 580 ml Output Total 50 ml 650 ml 275 ml 300 ml 0 ml Balance 570 ml 778 ml 202 ml 280 ml 0 ml IV Total 591 ml 778 ml 117 ml 193 ml Tube Feeding 29 ml 650 ml 110 ml 187 ml Albumin 50 ml Other 200 ml 200 ml Output Urine Total 50 ml 650 ml 200 ml 300 ml Gastric Drainage Total 75 ml Tube Feeding Residual Discard 0 ml 0 ml 0 ml Result Diagram: 07/13/1611 07/13/1611 Objective Remarks GENERAL: MBMN WF with RF SKIN: Warm and dry. HEAD: Normocephalic. EYES: No scleral icterus. No injection or drainage. NECK: Supple, trachea midline. No JVD or lymphadenopathy. CARDIOVASCULAR: Regular rate and rhythm without murmurs, gallops, or rubs. RESPIRATORY: Breath sounds equal bilaterally. No accessory muscle use. Bilat rales GASTROINTESTINAL: Abdomen soft, non-tender, nondistended. MUSCULOSKELETAL: No cyanosis, ++ edema. BACK: Nontender without obvious deformity. No CVA tenderness. A/P Assessment and Plan VDRF Bilat lung infilt Pleural effusion Ascitis PLAN: Vent support CPAP trial Diurease Cont Abx per ID Check bronch results Tomi Mckeon MD July 13, 2016 15:42
--- NOTE | 2016-07-13 15:59 | MR ---
cc: CHRISTA RICHARDSON DATE 07/13/2016 PROCEDURE Bronchoscopy. PREOPERATIVE DIAGNOSIS Lung infiltrate. PROCEDURE Informed consent was obtained from the patient. The procedure and the complications including complication of anesthesia, pneumothorax, requiring chest tube, bleeding complications, injury to the blood vessel, lungs, nerves, arrhythmia, hypoxia were explained. Her consented for the procedure. The patient is already on the ventilator. She is sedated with Diprivan. Bronchoscopy done through endotracheal tube. She was put on 100% FIO2. The main naldo is sharp. Bronchoscope advanced to the left lung. A small amount of mucous was suctioned. Small mucus plugs were removed. There was some biliary looking secretions which were suctioned. No endobronchial or mucosal lesion was seen. Then the bronchoscope pulled back and advanced to the right lung. The right upper, middle and lower lobe were visualized. Small amount of mucus plugs were removed. After suctioning, all subsegments were noted patent. She tolerated the procedure well. Bronchial washings sent for routine culture, AFB, fungal culture and cytology. She tolerated the procedure well. MD TOMMY Diane/SHEILA /3:11 PM /3:40 PM
[2016-07-13 23:52] LABS: C PNEUMO IGA <1:16 (()); C PNEUMO IGG <1:64 (()); C PNEUMO IGM <1:10 (())
[2016-07-14] VITALS (20 sets, daily range): BP systolic 90–126; BP diastolic 48–70; PULSE 102–126; RESP 14–36; TEMP 97.7–98.5; O2SAT 87–100
[2016-07-14] MEDS: CEFEPIME INJ 2,000 MG in SODIUM CHLORIDE 0.9% INJ 100 ML IV SCH ×4 (00:12→21:57)
[2016-07-14] MEDS: methylPREDNISolone SOD SUCC 125 MG/2 ML VIAL IV PUSH SCH ×2 (00:12→05:54)
[2016-07-14] MEDS: PROPOFOL 1000 MG/100 ML INJ 100 ML IV SCH ×2 (02:17→05:54)
[2016-07-14] MEDS: RESP: ALBUTEROL 2.5 MG/IPRATROPIUM 0.5 MG NEB (SCH) NEB ×6 (03:59→23:00)
[2016-07-14] MEDS: INSULIN NovoLIN REGULAR SUPPLEMENTAL SCALE SQ SCH ×6 (04:00→20:45)
[2016-07-14] MEDS: fentaNYL DRIP 250 ML IV SCH (04:26)
[2016-07-14] MEDS: DOCUSATE SODIUM 100 MG CAP PO SCH ×2 (04:26→16:05)
[2016-07-14] MEDS: PENTOXIFYLLINE 400 MG CONTROLLED RELEASE TAB PO SCH ×3 (05:54→20:45)
[2016-07-14 06:55] LABS: AUTOMATED NEUTROPHIL # 19.4 TH/MM3 (1.8-7.7); BASOPHIL % 0.2 % (0.0-2.0); HEMO FLAGS DIFF FINAL; LYMPH % 0.6 % (9.0-44.0); LYMPHOCYTE # 0.1 TH/MM3 (1.0-4.8); MEAN CELL VOLUME 101.8 FL (80.0-100.0); MEAN CORPUSCULAR HEMOGLOBIN 32.9 PG (27.0-34.0); MEAN CORPUSCULAR HGB CONC 32.3 % (32.0-36.0); MONO % 1.5 % (0.0-8.0); NEUT % 97.7 % (16.0-70.0); PLATELET COUNT 124 TH/MM3 (150-450); RED BLOOD COUNT 2.65 MIL/MM3 (4.00-5.30); RED CELL DISTRIBUTION WIDTH 15.5 % (11.6-17.2); WHITE BLOOD COUNT 19.9 TH/MM3 (4.0-11.0)
[2016-07-14 07:30] LABS: BICARBONATE 23.5 MEQ/L (21.0-32.0); POTASSIUM 4.7 MEQ/L (3.5-5.1)
[2016-07-14] MEDS: ALBUMIN HUMAN 25% 12.5 GM/50 ML BAGP IV SCH ×2 (07:55→20:44)
[2016-07-14] MEDS: SODIUM CHLORIDE 0.9% FLUSH 10 ML FLUSH IV FLUSH SCH ×2 (07:55→20:45)
[2016-07-14] MEDS: THIAMINE HCL 100 MG TAB PO SCH (08:01)
[2016-07-14] MEDS: FOLIC ACID 1 MG TAB PO SCH (08:01)
[2016-07-14] MEDS: MULTIVITAMIN TAB PO SCH (08:01)
[2016-07-14] MEDS: RIFAXIMIN 550 MG TAB PO SCH ×2 (08:01→20:44)
[2016-07-14] MEDS: BUMETANIDE INJ 1 MG/4 ML VIAL IV PUSH SCH (08:01)
[2016-07-14] MEDS: PANTOPRAZOLE SODIUM 40 MG VIAL IV PUSH SCH (08:01)
[2016-07-14] MEDS: AZITHROMYCIN INJ 500 MG in SODIUM CHLOR 0.9% 250 ML INJ 250 ML IV SCH (08:02)
[2016-07-14] MEDS: FLUTICASONE PROPIONATE 110 MCG/ACT 12 GM INHALER INH SCH ×2 (08:02→21:57)
[2016-07-14] MEDS: TIOTROPIUM BROMIDE 18 MCG INH INH SCH (08:02)
[2016-07-14] MEDS: HEPARIN SODIUM - SQ 10,000 UNITS/ML VIAL SQ SCH ×2 (08:03→20:44)
[2016-07-14] MEDS: guaiFENesin E.R. 600 MG TAB PO SCH ×2 (08:03→20:45)
--- NOTE | 2016-07-14 08:40 | HHI.CCPN ---
Subjective Remarks/Hospital Course The patient is a 31-year-old female with past medical history of ETOH hepatitis , ascites and cirrhosis of the liver with ETOH use who was admitted to [facility] on July 09 for healthcare-associated pneumonia. She had a chest x-ray on July 09 which showed diffuse consolidation and bilateral pleural effusions, likely representing pulmonary edema. The patient was recently discharged from the hospital after she was admitted back on June 10. On her prior admission she had an echocardiogram on June 22 which showed an EF of 50-55%. The patient also had paracentesis performed on June 30 with removal of 1.8 liters of ascitic fluid and she had a thoracentesis performed on the right on June 16 with removal of 800 cc of transudative pleural fluid. The patient was admitted under the hospitalists service and was started on broad -spectrum antibiotics for healthcare-associated pneumonia. A H[facility]CAT was called for respiratory distress and the patient was given Lasix at approximately 2 o'clock this morning and transferred to [facility]. Critical care medicine was consulted for respiratory distress. Her laboratory data showed worsening leukocytosis with a WBC of 25.7 from 16.2. Her BNP is 529 from 809. Ammonia level less than 10. A repeat chest x-ray showed worsening airspace process. The patient was placed on BiPAP 10/5 with 95% FIO2 and her initial saturation was 98%. When her FIO2 was weaned down she dropped her saturation and initially she refused intubation. She was just given additional Bumex 1 mg IV x1 and Solu-Medrol 80 mg IV push x1. The patient denies any nausea, vomiting or abdominal pain. 07/12 Patient was intubated yesterday for resp failure sedated with Diprivan and Fentanyl. WBC trending down. Afebrile. 07/13 Patient remains intubated and sedated with Diprivan off Fentanyl drip. s/p Right sided thoracentesis yesterday with removal 800ml pleural fluid and CT guided paracentesis with removal 4.3L. 07/14 Patient is intubated with Diprivan and Fentanyl. s/p bronch yesterday by Dr. Mckeon( small mucus plugs removed). Afebrile. Objective Vital Signs Date Time Temp Pulse Resp B/P Pulse Ox O2 Delivery O2 Flow Rate FiO2 07/14/16 06:00 104 07/14/16 04:16 97 40 5/25/17 04:00 97.9 15 107/57 07/11/16 19:00 Mechanical Ventilator 07/11/16 05:30 15.00 Intake and Output 07/13/16 07/13/16 07/14/16 08:00 16:00 00:00 Intake Total 580 ml 1111 ml 510 ml Output Total 300.0 ml 350 ml 175 ml Balance 280.0 ml 761 ml 335 ml Result Diagram: 07/14/16 0612 07/14/16 0612 Other Results Laboratory Tests Test 07/14/16 06:12 White Blood Count 19.9 TH/MM3 Red Blood Count 2.65 MIL/MM3 Hemoglobin 8.7 GM/DL Hematocrit 27.0 % Mean Corpuscular Volume 101.8 FL Mean Corpuscular Hemoglobin 32.9 PG Mean Corpuscular Hemoglobin 32.3 % Concent Red Cell Distribution Width 15.5 % Platelet Count 124 TH/MM3 Mean Platelet Volume 11.1 FL Neutrophils (%) (Auto) 97.7 % Lymphocytes (%) (Auto) 0.6 % Monocytes (%) (Auto) 1.5 % Eosinophils (%) (Auto) 0.0 % Basophils (%) (Auto) 0.2 % Neutrophils # (Auto) 19.4 TH/MM3 Lymphocytes # (Auto) 0.1 TH/MM3 Monocytes # (Auto) 0.3 TH/MM3 Eosinophils # (Auto) 0.0 TH/MM3 Basophils # (Auto) 0.0 TH/MM3 CBC Comment DIFF FINAL Differential Comment Sodium Level 136 MEQ/L Potassium Level 4.7 MEQ/L Chloride Level 100 MEQ/L Carbon Dioxide Level 23.5 MEQ/L Anion Gap 13 MEQ/L Blood Urea Nitrogen 51 MG/DL Creatinine 1.37 MG/DL Estimat Glomerular Filtration 44 ML/MIN Rate Random Glucose 229 MG/DL Calcium Level 7.8 MG/DL Random Vancomycin Level 15.3 COMMENT Imaging Last Impressions Thoracentesis Ultrasound 07/12/16 0000 Signed Impressions: Service Date/Time: Tuesday, July 12, 2016 10:17 - CONCLUSION: Uncomplicated ultrasound guided thoracentesis. Garret Verma MD Cyst Biopsy Asp-Paracentesis US 07/12/16 0000 Signed Impressions: Service Date/Time: Tuesday, July 12, 2016 10:17 - CONCLUSION: Uncomplicated ultrasound guided paracentesis. Garret Verma MD Chest X-Ray 07/12/16 0000 Signed Impressions: Service Date/Time: Tuesday, July 12, 2016 11:08 - CONCLUSION: 1. No evidence of pneumothorax following thoracentesis. Jamaal Eastman MD Liver Ultrasound 07/11/16 0000 Signed Impressions: Service Date/Time: Monday, July 11, 2016 10:24 - CONCLUSION: Ascites and pleural effusions. Splenomegaly. Tiny gallstone or gallbladder polyp Qasim Edwards MD Chest CT 07/11/16 0000 Signed Impressions: Service Date/Time: Monday, July 11, 2016 22:37 - CONCLUSION: Bilateral pleural effusions, slight ascites and significant worsening of airspace consolidation in both lungs. Mert Laurent MD Objective Remarks GENERAL: Patient is 31yo critically ill intubated and sedated SKIN: Warm and dry. HEAD: Normocephalic. EYES: No scleral icterus. No injection or drainage. NECK: Supple, trachea midline. No JVD or lymphadenopathy. Orally intubated CARDIOVASCULAR: Regular rate and rhythm without murmurs, gallops, or rubs. RESPIRATORY: Breath sounds equal bilaterally. No accessory muscle use. GASTROINTESTINAL: Abdomen soft, non-tender, nondistended. MUSCULOSKELETAL: No cyanosis, or edema. Neuro: Sedated, intubated A/P Assessment and Plan 1. VDRF 2. Diffuse bilateral airspace disease...improved 3. Pleural effusions s/p Right sided thoracentesis with removal 800ml pleural fluid 07/12 4. Healthcare-associated pneumonia. 5. Leukocytosis...trending down 6. Anemia. 7. Elevated LFTs 8. Cirrhosis of the liver secondary to ETOH use. 9. Hypertension. 10.Recurrent ascites s/p paracentesis performed on June 30. s/p paracentesis on 07/12 with removal 4.3L. Plan Neuro: On Diprivan/Fentanyl infusion for sedation. Monitor neuro status and daily sedation vacation Continue thiamine, multivitamins and folic acid. on rifaximin and Trental..Ammonia level < 10 Pulm: Continue with vent support and maintain sats above 92%. On PRVC/ AC RR 14, TV 500, IT 1.0, PEEP:5 and FIO2 40% Bronchodilators, decrease solumederol 40mg Q12 s/p CT guided thoracentesis 07/12 with removal 800ml 0 transudative effusion. Pleural fluid culture- NGTD Pulm is following- Dr. Mckeon s/p bronch 07/13( small mucus plugs removed ) follow up on BAL results SBT trials daily as rina. CV: Monitor HR and BP and maintain MAP >65 mmHg. Echo from June 22 showed an EF of 50-55%. : Monitor renal function, I's and O's, and electrolyte replacement per protocol. On Albumin 12.5gms Q12 s/p CT guided paracentesis with removal 4.3L. Follow up on cultures Renal function worse today with Cr: 1.37 from 1.03. d/c Bumex. GI: On Protonix 40 mg IV daily for GI prophylaxis. Continue tube feeds- Glucerna 1.5 @ 45ml/hr. ID: Continue abx( cefepime, azithromycin, Vanco) ID is following. Monitor for signs of infections(Fever and WBC) Strep pneumoniae and Legionella urinary antigen negative. Blood cultures 07/09: NGTD, sputum cx from 07/11: NGTD Follow up on BAL results 07/12: Peritoneal and pleural fluid cxs: NGTD Endo:Increase SSI to medium scale with Accu-Chek q.6h. for glycemic control Heme: Monitor CBC and coags GI prophylaxis with Protonix 40 mg daily and DVT prophylaxis with SCDs and heparin subcu. Level 3 Thad Mccall MD July 14, 2016 08:40
[2016-07-14] MEDS ORDERED: DEXTROSE 50% IN WATER 50 ML VIAL(D50) IV PRN (08:45)
[2016-07-14] MEDS ORDERED: GLUCAGON 1 MG/ML VIAL OTHER PRN (08:45)
--- NOTE | 2016-07-14 09:15 | RADRPT ---
EXAM DATE/TIME: 07/14/2016 08:42 [place] COMPARISON: CHEST SINGLE AP, July 11, 2016, 7:52. INDICATIONS : VDRF. MEDICAL HISTORY : Hepatitis. Ascites. Pleural effusion SURGICAL HISTORY : None. ENCOUNTER: Subsequent ACUITY: 3 days PAIN SCORE: Non-responsive. LOCATION: Bilateral chest FINDINGS: Portable AP view of the chest demonstrates a normal-sized cardiac silhouette. ETT and nasogastric tub e remain present. Multiple lines overlie the patient. There is moderate to severe diffuse bilateral a irspace consolidation that has somewhat improved in the upper lung zones bilaterally. No pneumothorax or definite effusion is seen. Bones demonstrate no acute finding. CONCLUSION: Persistent severe diffuse bilateral airspace consolidation with slight improvement in the consolidati on in the upper lung zones. Qasim Osuna MD on July 14, 2016 at 9:12 Board Certified Radiologist. This report was verified electronically.
[2016-07-14 09:48] LABS: BLOOD GAS BASE EXCESS -2.9 mmol/L (-2-2); BLOOD GAS CARBOXYHEMOGLOBIN 2.1 % (0-4); BLOOD GAS HCO3 22 mmol/L (22-26); BLOOD GAS METHEMOGLOBIN 1.3 % (0-2); BLOOD GAS O2 HGB SATURATION 90 % (90-100); BLOOD GAS OXYGEN CONTENT 12.1 Vol % (12.0-20.0); BLOOD GAS PCO2 38 mmHg (38-42); BLOOD GAS PO2 73 mmHg (61-120); BLOOD GAS TOTAL HGB 9.5 G/DL (12.0-16.0); CRITICAL VALUE NO; OXYGEN DEVICE VENTILATOR; TEMP CORR TO 98.6
--- NOTE | 2016-07-14 09:48 | HHI.IDPN ---
Subjective Subjective Remarks Notes reviewed Had bronch yesterday On CPAP this morning Temps ok BP ok Awake and alert Not SOB CXR looks better Had R tap 07/12 - 800 ml out, transudate Had paracentesis - 4.3L removed, looks transudative [place] and pneumo Ag negative BC negative Sputum neg Mycoplasma Ab negative Chlamydia negative Legionella Ab pending Antibiotics Zithromax Cefepime Vancomycin Past Medical History Reviewed Allergies: Coded Allergies: No Known Allergies (Unverified , 07/09/16) Objective . Vital Signs Date Time Temp Pulse Resp B/P Pulse Ox O2 Delivery O2 Flow Rate FiO2 07/14/16 08:36 99 40 07/14/16 08:36 40 07/14/16 06:00 104 07/14/16 04:16 97 40 07/14/16 04:00 97.9 112 15 107/57 98 07/14/16 04:00 112 07/14/16 02:00 110 07/14/16 01:12 98 40 07/14/16 00:00 97.7 102 14 90/48 98 07/14/16 00:00 102 07/13/16 22:14 97 40 07/13/16 22:00 92 07/13/16 20:00 97.5 92 14 95/51 94 07/13/16 20:00 92 07/13/16 19:46 96 40 07/13/16 18:00 95 07/13/16 16:00 97.8 110 38 102/57 95 07/13/16 16:00 110 07/13/16 15:34 93 35 07/13/16 14:50 100 100 07/13/16 14:00 90 07/13/16 12:09 95 40 07/13/16 12:00 97.9 93 38 89/52 95 07/13/16 12:00 93 07/13/16 10:00 93 07/13/16 07/13/16 07/14/16 15:00 23:00 07:00 Intake Total 1111 ml 510 ml 534 ml Output Total 350 ml 175 ml 175 ml Balance 761 ml 335 ml 359 ml IV Total 803 ml 367 ml 272 ml Tube Feeding 58 ml 93 ml 262 ml Albumin 50 ml Other 250 ml Output Urine Total 350 ml 175 ml 175 ml Tube Feeding Residual Discard 0 ml 0 ml . Laboratory Tests Test 07/13/16 07/14/16 05:11 06:12 White Blood Count 17.4 TH/MM3 19.9 TH/MM3 Red Blood Count 2.81 MIL/MM3 2.65 MIL/MM3 Hemoglobin 9.4 GM/DL 8.7 GM/DL Hematocrit 28.3 % 27.0 % Mean Corpuscular Volume 100.5 FL 101.8 FL Mean Corpuscular Hemoglobin 33.3 PG 32.9 PG Mean Corpuscular Hemoglobin 33.1 % 32.3 % Concent Red Cell Distribution Width 15.5 % 15.5 % Platelet Count 129 TH/MM3 124 TH/MM3 Mean Platelet Volume 10.8 FL 11.1 FL Neutrophils (%) (Auto) 94.7 % 97.7 % Lymphocytes (%) (Auto) 1.7 % 0.6 % Monocytes (%) (Auto) 2.9 % 1.5 % Eosinophils (%) (Auto) 0.0 % 0.0 % Basophils (%) (Auto) 0.7 % 0.2 % Neutrophils # (Auto) 16.5 TH/MM3 19.4 TH/MM3 Lymphocytes # (Auto) 0.3 TH/MM3 0.1 TH/MM3 Monocytes # (Auto) 0.5 TH/MM3 0.3 TH/MM3 Eosinophils # (Auto) 0.0 TH/MM3 0.0 TH/MM3 Basophils # (Auto) 0.1 TH/MM3 0.0 TH/MM3 CBC Comment DIFF FINAL DIFF FINAL Differential Comment Laboratory Tests Test 07/13/16 07/14/16 05:11 06:12 Sodium Level 136 MEQ/L 136 MEQ/L Potassium Level 4.1 MEQ/L 4.7 MEQ/L Chloride Level 100 MEQ/L 100 MEQ/L Carbon Dioxide Level 27.9 MEQ/L 23.5 MEQ/L Anion Gap 8 MEQ/L 13 MEQ/L Blood Urea Nitrogen 36 MG/DL 51 MG/DL Creatinine 1.03 MG/DL 1.37 MG/DL Estimat Glomerular Filtration 62 ML/MIN 44 ML/MIN Rate Random Glucose 155 MG/DL 229 MG/DL Calcium Level 7.8 MG/DL 7.8 MG/DL B-Type Natriuretic Peptide 380 PG/ML Microbiology Date/Time Procedure Status Source Growth 07/11/16 11:22 Gram Stain - Final Complete Sputum Expectorated Sputum 07/11/16 11:22 Sputum Culture - Final Complete Sputum Expectorated Sputum NO GROWTH IN 48 HOURS. 07/11/16 11:22 Legionella Antigen - Final Complete Urine Catheterized Urine PRESUMPTIVE NEGATIVE FOR LEGIONELLA P... 07/11/16 11:22 Streptococcus pneumoniae Antigen (M - Final Complete Urine Catheterized Urine PRESUMPTIVE NEGATIVE FOR STREPTOCOCCU... 07/12/16 10:35 Gram Stain - Final Resulted Fluid Peritoneal Fluid 07/12/16 10:35 Body Fluid Culture - Preliminary Resulted Fluid Peritoneal Fluid NO GROWTH IN 48 HOURS. 07/12/16 10:35 Gram Stain Received Fluid Pleural Fluid Pending 07/12/16 10:35 Body Fluid Culture Received Fluid Pleural Fluid Pending 07/12/16 10:35 Acid Fast Stain Received Fluid Pleural Fluid Pending 07/12/16 10:35 Mycobacterial Culture Received Fluid Pleural Fluid Pending 07/12/16 10:35 Fungal Smear Received Fluid Pleural Fluid Pending 07/12/16 10:35 Fungal Culture Received Fluid Pleural Fluid Pending 07/12/16 10:42 Gram Stain - Final Resulted Fluid Pleural Fluid 07/12/16 10:42 Body Fluid Culture - Preliminary Resulted Fluid Pleural Fluid NO GROWTH IN 48 HOURS. 07/12/16 10:42 Acid Fast Stain - Final Resulted Fluid Pleural Fluid NO ACID FAST BACILLI SEEN 07/12/16 10:42 Mycobacterial Culture Resulted Fluid Pleural Fluid Pending 07/12/16 10:42 Fungal Smear - Final Resulted Fluid Pleural Fluid NO FUNGAL ELEMENTS SEEN. 07/12/16 10:42 Fungal Culture Resulted Fluid Pleural Fluid Pending 07/13/16 14:55 Gram Stain - Final Resulted Bronchial Washings Bronchial 07/13/16 14:55 Bronchial Culture Resulted Bronchial Washings Bronchial Pending 07/13/16 14:55 Acid Fast Stain Received Bronchial Washings Bronchial Pending 07/13/16 14:55 Mycobacterial Culture Received Bronchial Washings Bronchial Pending 07/13/16 14:55 Fungal Smear - Final Resulted Bronchial Washings Bronchial NO FUNGAL ELEMENTS SEEN. 07/13/16 14:55 Fungal Culture Resulted Bronchial Washings Bronchial Pending Imaging Chest X-Ray 07/14/16 0000 Signed Impressions: Service Date/Time: June 08:42 - CONCLUSION: Persistent severe diffuse bilateral airspace consolidation with slight improvement in the consolidation in the upper lung zones. Qasim Osuna MD Thoracentesis Ultrasound 07/12/16 0000 Signed Impressions: Service Date/Time: Tuesday, July 12, 2016 10:17 - CONCLUSION: Uncomplicated ultrasound guided thoracentesis. Garret Verma MD Cyst Biopsy Asp-Paracentesis US 07/12/16 Signed Impressions: Service Date/Time: Tuesday, July 12, 2016 10:17 - CONCLUSION: Uncomplicated ultrasound guided paracentesis. Garret Verma MD Chest X-Ray 07/12/16 Signed Impressions: Service Date/Time: Tuesday, July 12, 2016 11:08 - CONCLUSION: 1. No evidence of pneumothorax following thoracentesis. Jamaal Eastman MD Liver Ultrasound 07/11/16 Signed Impressions: Service Date/Time: Monday, July 11, 2016 10:24 - CONCLUSION: Ascites and pleural effusions. Splenomegaly. Tiny gallstone or gallbladder polyp Qasim Edwards MD Chest X-Ray 07/11/16 Signed Impressions: Service Date/Time: Monday, July 11, 2016 07:52 - CONCLUSION: 1. Endotracheal tube in appropriate position measuring approximately 3.4 cm from the naldo. 2. Stable severe diffuse airspace consolidation bilaterally. Qasim Osuna MD Chest CT 07/11/16 Signed Impressions: Service Date/Time: Monday, July 11, 2016 22:37 - CONCLUSION: Bilateral pleural effusions, slight ascites and significant worsening of airspace consolidation in both lungs. Mert Laurent MD Physical Exam GENERAL: awake and alert, not in respiratory distress. SKIN: Warm and dry. Has jaundice. Has spider angiomata in her upper chest HEAD: Atraumatic. Normocephalic. No temporal wasting, or tenderness. EYES: [place] conjunctiva. No petechia or hemorrhage. Has scleral icterus. No injection or drainage. EARS, NOSE AND THROAT: Nose without bleeding or purulent nasal discharge. No sinus tenderness. She is orally intubated. NECK: Trachea midline. Supple and not tender, no meningeal signs CARDIOVASCULAR: Regular rate and rhythm. No murmurs, rubs or gallops heard RESPIRATORY: Coarse BS bilaterally. Breath sounds equal bilaterally. Decreased at the R base ABDOMEN: Soft, not distended, bowel sounds present and normoactive, with mild diffuse tenderness, no guarding or rebound. Liver tender and enlarged. EXTREMITIES: No clubbing, or cyanosis. Has bilateral pitting edema. Both feet well perfused and warm. NEUROLOGICAL: awake, responding PSYCHIATRIC: Cooperative : Cleaning in place, urine looks ok LINE: No evidence of infection Assessment & Plan Remarks IMPRESSION Bilateral infiltrates, worsening in very acute progression, likely more inflammatory, ?ARDS - ?new PNA, she has not had any worsening of her cough or congestion, too rapid a development - CXR also today is better, which would go more with fluid, ?inflammatory Respiratory failure ETOH hepatitis Leukocytosis, up, steroids likely adding to it RECOMMENDATION Follow C/S On vanco, Cefepime and Zithromax Monitor progress Pulmonary following I will follow with you Weaning per CCM - possible extubation today Whit Rock MD July 14, 2016 09:48
[2016-07-14 09:49] LABS: DRAW SITE LT RADIAL; FIO2 40 %; NUMBER OF ARTERIAL PUNCTURES 1; STAT NO; ULNAR PULSE PRESENT; VENT SETTINGS IPAP5EPAP5
[2016-07-14] MEDS: LORazepam 0.5 MG TAB PO PRN ×2 (10:41→21:05)
[2016-07-14] MEDS ORDERED: VANCOMYCIN INJ 1,250 MG in SODIUM CHLOR 0.9% 250 ML INJ 250 ML IV ONE (11:00)
[2016-07-14] MEDS: methylPREDNISolone SOD SUCC 40 MG/1 ML VIAL IV PUSH SCH (17:07)
--- NOTE | 2016-07-14 18:41 | HHI.PR ---
Subjective Remarks 31 YOWFw ith VDRF,Lung infilt,Pl effusion had Paracentesis,4.2 L fluid removed Had Thoracentesis Had bronch Extubated Feels weak C/O throat pain Objective Vital Signs Vital Signs Date Time Temp Pulse Resp B/P Pulse Ox O2 Delivery O2 Flow Rate FiO2 07/14/16 17:00 100 40 07/14/16 16:00 122 07/14/16 14:00 113 07/14/16 12:00 123 07/14/16 10:10 93 Nasal Cannula 6 07/14/16 10:10 93 Nasal Cannula 6.00 07/14/16 10:00 114 07/14/16 08:36 99 40 07/14/16 08:36 40 07/14/16 08:00 112 07/14/16 06:00 104 07/14/16 04:16 97 40 07/14/16 04:00 97.9 112 15 107/57 98 07/14/16 04:00 112 07/14/16 02:00 110 07/14/16 01:12 98 40 07/14/16 00:00 97.7 102 14 90/48 98 07/14/16 00:00 102 07/13/16 22:14 97 40 07/13/16 22:00 92 07/13/16 20:00 97.5 92 14 95/51 94 07/13/16 20:00 92 07/13/16 19:46 96 40 I/O 07/13/16 07/13/16 07/13/16 07/14/16 07/14/16 07/14/16 07:00 15:00 23:00 07:00 15:00 23:00 Intake Total 580 ml 1111 ml 510 ml 534 ml 1087 ml Output Total 300 ml 350 ml 175 ml 175 ml 600 ml Balance 280 ml 761 ml 335 ml 359 ml 487 ml IV Total 193 ml 803 ml 367 ml 272 ml 919 ml Tube Feeding 187 ml 58 ml 93 ml 262 ml 68 ml Albumin 50 ml Other 200 ml 250 ml 100 ml Output Urine Total 300 ml 350 ml 175 ml 175 ml 600 ml Tube Feeding Residual Discard 0 ml 0 ml Result Diagram: 07/14/16 0612 07/14/16 0612 Objective Remarks GENERAL: MBMN WF with RF, extubated on BIPAP SKIN: Warm and dry. HEAD: Normocephalic. EYES: No scleral icterus. No injection or drainage. NECK: Supple, trachea midline. No JVD or lymphadenopathy. CARDIOVASCULAR: Regular rate and rhythm without murmurs, gallops, or rubs. RESPIRATORY: Breath sounds equal bilaterally. No accessory muscle use. Bilat rales GASTROINTESTINAL: Abdomen soft, non-tender, nondistended. MUSCULOSKELETAL: No cyanosis, ++ edema. BACK: Nontender without obvious deformity. No CVA tenderness. A/P Assessment and Plan VDRF, s/p extubation 07/14 Bilat lung infilt Pleural effusion Ascitis PLAN: Cont CPAP Diurease Cont Abx per ID Wean 02 to keep sat >90% Tomi Mckeon MD July 14, 2016 18:40
[2016-07-14] MEDS: ACETAMINOPHEN/HYDROcodone 325 MG/10 MG TAB PO PRN (18:53)
[2016-07-14] MEDS ORDERED: LORazepam 2 MG/ML VIAL IV ONE (19:00)
[2016-07-15] VITALS (34 sets, daily range): BP systolic 88–187; BP diastolic 47–84; PULSE 112–142; RESP 14–68; TEMP 98.1–98.9; O2SAT 49–100
[2016-07-15] MEDS: ACETAMINOPHEN/HYDROcodone 325 MG/10 MG TAB PO PRN ×3 (00:51→10:28)
[2016-07-15] MEDS ORDERED: LORazepam 2 MG/ML VIAL IV SCH (01:00)
[2016-07-15] MEDS: INSULIN NovoLIN REGULAR SUPPLEMENTAL SCALE SQ SCH ×4 (03:00→20:22)
[2016-07-15] MEDS: RESP: ALBUTEROL 2.5 MG/IPRATROPIUM 0.5 MG NEB (SCH) NEB ×5 (04:00→23:57)
[2016-07-15 04:17] LABS: BLOOD GAS BASE EXCESS -3.9 mmol/L (-2-2); BLOOD GAS CARBOXYHEMOGLOBIN 2.5 % (0-4); BLOOD GAS HCO3 20 mmol/L (22-26); BLOOD GAS METHEMOGLOBIN 1.1 % (0-2); BLOOD GAS O2 HGB SATURATION 95 % (90-100); BLOOD GAS OXYGEN CONTENT 13.5 Vol % (12.0-20.0); BLOOD GAS PCO2 32 mmHg (38-42); BLOOD GAS PO2 98 mmHg (61-120); CRITICAL VALUE NO; TEMP CORR TO 98.6
[2016-07-15 04:18] LABS: DRAW SITE RT RADIAL; FIO2 65 %; NUMBER OF ARTERIAL PUNCTURES 1; STAT NO; ULNAR PULSE PRESENT
[2016-07-15] MEDS: DOCUSATE SODIUM 100 MG CAP PO SCH ×2 (05:00→17:00)
[2016-07-15] MEDS: methylPREDNISolone SOD SUCC 40 MG/1 ML VIAL IV PUSH SCH ×2 (05:42→18:00)
[2016-07-15] MEDS: PENTOXIFYLLINE 400 MG CONTROLLED RELEASE TAB PO SCH ×3 (05:42→20:57)
[2016-07-15] MEDS: CEFEPIME INJ 2,000 MG in SODIUM CHLORIDE 0.9% INJ 100 ML IV SCH ×3 (05:42→22:32)
[2016-07-15 07:37] LABS: AUTOMATED NEUTROPHIL # 24.1 TH/MM3 (1.8-7.7); BASOPHIL # 0.1 TH/MM3 (0-0.2); BASOPHIL % 0.5 % (0.0-2.0); EOSINOPHIL % 0.2 % (0.0-4.0); HEMATOCRIT 34.1 % (35.0-46.0); LYMPH % 1.6 % (9.0-44.0); LYMPHOCYTE # 0.4 TH/MM3 (1.0-4.8); MEAN CELL VOLUME 100.4 FL (80.0-100.0); MEAN CORPUSCULAR HEMOGLOBIN 32.4 PG (27.0-34.0); MEAN CORPUSCULAR HGB CONC 32.3 % (32.0-36.0); MONO % 0.6 % (0.0-8.0); NEUT % 97.1 % (16.0-70.0); PLATELET COUNT 94 TH/MM3 (150-450); RED BLOOD COUNT 3.39 MIL/MM3 (4.00-5.30); RED CELL DISTRIBUTION WIDTH 15.5 % (11.6-17.2); WHITE BLOOD COUNT 24.8 TH/MM3 (4.0-11.0)
[2016-07-15 07:39] LABS: HEMO FLAGS AUTO DIFF
[2016-07-15] MEDS: ALBUMIN HUMAN 25% 12.5 GM/50 ML BAGP IV SCH (07:45)
[2016-07-15] MEDS: RIFAXIMIN 550 MG TAB PO SCH ×2 (07:46→20:57)
[2016-07-15] MEDS: THIAMINE HCL 100 MG TAB PO SCH (07:46)
[2016-07-15] MEDS: AZITHROMYCIN INJ 500 MG in SODIUM CHLOR 0.9% 250 ML INJ 250 ML IV SCH (07:46)
[2016-07-15] MEDS: HEPARIN SODIUM - SQ 10,000 UNITS/ML VIAL SQ SCH ×2 (07:47→20:21)
[2016-07-15] MEDS: PANTOPRAZOLE SODIUM 40 MG VIAL IV PUSH SCH (07:47)
[2016-07-15] MEDS: guaiFENesin E.R. 600 MG TAB PO SCH ×2 (07:47→20:23)
[2016-07-15] MEDS: SODIUM CHLORIDE 0.9% FLUSH 10 ML FLUSH IV FLUSH SCH ×2 (07:47→20:23)
[2016-07-15] MEDS: FOLIC ACID 1 MG TAB PO SCH (07:48)
[2016-07-15] MEDS: MULTIVITAMIN TAB PO SCH (07:48)
[2016-07-15 07:58] LABS: ALKALINE PHOSPHATASE 114 U/L (45-117); ALT (GPT) 37 U/L (10-53); ANION GAP 12 MEQ/L (5-15); AST (GOT) 53 U/L (15-37); BICARBONATE 21.9 MEQ/L (21.0-32.0); BLOOD UREA NITROGEN 64 MG/DL (7-18); CHLORIDE 105 MEQ/L (98-107); GLOMERULAR FILTRATION RATE 39 ML/MIN (>89); POTASSIUM 4.6 MEQ/L (3.5-5.1); SODIUM (NA) 139 MEQ/L (136-145); TOTAL BILIRUBIN ADULT 2.7 MG/DL (0.2-1.0)
[2016-07-15] MEDS: RESP: ALBUTEROL 2.5 MG/IPRATROPIUM 0.5 MG NEB (PRN) NEB (08:11)
[2016-07-15] MEDS: LORazepam 0.5 MG TAB PO PRN (08:16)
--- NOTE | 2016-07-15 08:38 | HHI.CCPN ---
Subjective Remarks/Hospital Course The patient is a 31-year-old female with past medical history of ETOH hepatitis , ascites and cirrhosis of the liver with ETOH use who was admitted to [facility] on July 09 for healthcare-associated pneumonia. She had a chest x-ray on July 09 which showed diffuse consolidation and bilateral pleural effusions, likely representing pulmonary edema. The patient was recently discharged from the hospital after she was admitted back on June 10. On her prior admission she had an echocardiogram on June 22 which showed an EF of 50-55%. The patient also had paracentesis performed on June 30 with removal of 1.8 liters of ascitic fluid and she had a thoracentesis performed on the right on June 16 with removal of 800 cc of transudative pleural fluid. The patient was admitted under the hospitalists service and was started on broad -spectrum antibiotics for healthcare-associated pneumonia. A [facility] was called for respiratory distress and the patient was given Lasix at approximately 2 o'clock this morning and transferred to [facility] Critical care medicine was consulted for respiratory distress. Her laboratory data showed worsening leukocytosis with a WBC of 25.7 from 16.2. Her BNP is 529 from 809. Ammonia level less than 10. A repeat chest x-ray showed worsening airspace process. The patient was placed on BiPAP 11/24 with 95% FIO2 and her initial saturation was 98%. When her FIO2 was weaned down she dropped her saturation and initially she refused intubation. She was just given additional Bumex 1 mg IV x1 and Solu-Medrol 80 mg IV push x1. The patient denies any nausea, vomiting or abdominal pain. 07/12 Patient was intubated yesterday for resp failure sedated with Diprivan and Fentanyl. WBC trending down. Afebrile. 07/13 Patient remains intubated and sedated with Diprivan off Fentanyl drip. s/p Right sided thoracentesis yesterday with removal 800ml pleural fluid and CT guided paracentesis with removal 4.3L. 07/14 Patient is intubated with Diprivan and Fentanyl. s/p bronch yesterday by Dr. Mckeon( small mucus plugs removed). Afebrile. 07/15 Patient s/p extubation yesterday. Placed on BIPAP overnight 11/24 with FIO2 65%. Afebrile. Objective Vital Signs Date Time Temp Pulse Resp B/P Pulse Ox O2 Delivery O2 Flow Rate FiO2 07/15/16 06:00 126 07/15/16 04:20 95 65 07/15/16 04:00 98.9 42 122/84 07/14/16 19:51 BiPAP 07/14/16 10:10 6 Intake and Output 07/14/16 07/14/16 07/15/16 08:00 16:00 00:00 Intake Total 534 ml 1087 ml 221 ml Output Total 175 ml 600 ml 175 ml Balance 359 ml 487 ml 46 ml Result Diagram: 07/15/16 0655 07/15/16 0655 Other Results Laboratory Tests Test 07/14/16 07/15/16 07/15/16 09:37 04:06 06:55 Blood Gas Puncture Site LT RADIAL RT RADIAL Blood Gas Patient Temperature 98.6 98.6 Blood Gas HCO3 22 mmol/L 20 mmol/L Blood Gas Base Excess -2.9 mmol/L -3.9 mmol/L Blood Gas Oxygen Saturation 90 % 95 % Arterial Blood pH 7.37 7.41 Arterial Blood Partial 38 mmHg 32 mmHg Pressure CO2 Arterial Blood Partial 73 mmHg 98 mmHg Pressure O2 Arterial Blood Oxygen Content 12.1 Vol % 13.5 Vol % Arterial Blood 2.1 % 2.5 % Carboxyhemoglobin Arterial Blood Methemoglobin 1.3 % 1.1 % Blood Gas Hemoglobin 9.5 G/DL 10.0 G/DL Oxygen Delivery Device VENTILATOR BIPAP 10/65% Blood Gas Ventilator Setting [id number] Blood Gas Inspired Oxygen 40 % 65 % White Blood Count 24.8 TH/MM3 Red Blood Count 3.39 MIL/MM3 Hemoglobin 11.0 GM/DL Hematocrit 34.1 % Mean Corpuscular Volume 100.4 FL Mean Corpuscular Hemoglobin 32.4 PG Mean Corpuscular Hemoglobin 32.3 % Concent Red Cell Distribution Width 15.5 % Platelet Count 94 TH/MM3 Mean Platelet Volume 10.7 FL Neutrophils (%) (Auto) 97.1 % Lymphocytes (%) (Auto) 1.6 % Monocytes (%) (Auto) 0.6 % Eosinophils (%) (Auto) 0.2 % Basophils (%) (Auto) 0.5 % Neutrophils # (Auto) 24.1 TH/MM3 Lymphocytes # (Auto) 0.4 TH/MM3 Monocytes # (Auto) 0.1 TH/MM3 Eosinophils # (Auto) 0.0 TH/MM3 Basophils # (Auto) 0.1 TH/MM3 CBC Comment AUTO DIFF Hematology Comments Sodium Level 139 MEQ/L Potassium Level 4.6 MEQ/L Chloride Level 105 MEQ/L Carbon Dioxide Level 21.9 MEQ/L Anion Gap 12 MEQ/L Blood Urea Nitrogen 64 MG/DL Creatinine 1.54 MG/DL Estimat Glomerular Filtration 39 ML/MIN Rate Random Glucose 134 MG/DL Calcium Level 8.4 MG/DL Total Bilirubin 2.7 MG/DL Aspartate Amino Transf 53 U/L (AST/SGOT) Alanine Aminotransferase 37 U/L (ALT/SGPT) Alkaline Phosphatase 114 U/L Total Protein 5.8 GM/DL Albumin 2.7 GM/DL Imaging Last Impressions Chest X-Ray 07/14/16 Signed Impressions: Service Date/Time: June 08:42 - CONCLUSION: Persistent severe diffuse bilateral airspace consolidation with slight improvement in the consolidation in the upper lung zones. Qasim Osuna MD Thoracentesis Ultrasound 07/12/16 Signed Impressions: Service Date/Time: Tuesday, July 12, 2016 10:17 - CONCLUSION: Uncomplicated ultrasound guided thoracentesis. Garret Verma MD Cyst Biopsy Asp-Paracentesis US 07/12/16 Signed Impressions: Service Date/Time: Tuesday, July 12, 2016 10:17 - CONCLUSION: Uncomplicated ultrasound guided paracentesis. Garret Verma MD Liver Ultrasound 07/11/16 Signed Impressions: Service Date/Time: Monday, July 11, 2016 10:24 - CONCLUSION: Ascites and pleural effusions. Splenomegaly. Tiny gallstone or gallbladder polyp Qasim Edwards MD Chest CT 07/11/16 Signed Impressions: Service Date/Time: Monday, July 11, 2016 22:37 - CONCLUSION: Bilateral pleural effusions, slight ascites and significant worsening of airspace consolidation in both lungs. Mert Laurent MD Objective Remarks GENERAL: Patient is 31yo anxious on BIPAP SKIN: Warm and dry. HEAD: Normocephalic. EYES: No scleral icterus. No injection or drainage. NECK: Supple, trachea midline. No JVD or lymphadenopathy. CARDIOVASCULAR: Tachycardic without murmurs, gallops, or rubs. RESPIRATORY: Diffuse coarse BS and rhonchi GASTROINTESTINAL: Abdomen soft, non-tender, nondistended. MUSCULOSKELETAL: No cyanosis, +edema. Neuro: Awake and alert. A/P Assessment and Plan 1. Resp Insuff 2. Diffuse bilateral airspace disease...improved 3. Pleural effusions s/p Right sided thoracentesis with removal 800ml pleural fluid 07/12 4. Healthcare-associated pneumonia. 5. Leukocytosis...trending down 6. Anemia. 7. Elevated LFTs 8. Cirrhosis of the liver secondary to ETOH use. 9. Hypertension. 10.Recurrent ascites s/p paracentesis performed on June 30. s/p paracentesis on 07/12 with removal 4.3L. Plan Neuro: Awake and alert Monitor neuro status Continue thiamine, multivitamins and folic acid. on rifaximin and Trental..Ammonia level < 10 Pulm: Wean down oxygen as rina keep sat >92% Bronchodilators, solumederol 40mg Q12 NIPPV for resp distress. Check CXR today if there is any worsening in resp status will proceed with reintubation s/p CT guided thoracentesis 07/12 with removal 800ml 0 transudative effusion. Pleural fluid culture- NGTD Pulm is following- Dr. Mckeon s/p bronch 07/13( small mucus plugs removed ) follow up on BAL results CV: Monitor HR and BP and maintain MAP >65 mmHg. Echo from June 22 showed an EF of 50-55%. Recheck echo. : Monitor renal function, I's and O's, and electrolyte replacement per protocol. D/c albumin, diurese with Bumex 1mg x1 s/p CT guided paracentesis 07/12 with removal 4.3L. Follow up on cultures- NGTD Renal function worse today with Cr: 1.54 today from 1.37 GI: On Protonix 40 mg IV daily for GI prophylaxis. keep NPO for now till resp status improves ID: Continue abx( cefepime, azithromycin, Vanco) ID is following. Monitor for signs of infections(Fever and WBC) Strep pneumoniae and Legionella urinary antigen negative. Blood cultures 07/09: NGTD, sputum cx from 07/11: NGTD Follow up on BAL results- NGTD 07/12: Peritoneal and pleural fluid cxs: NGTD Endo: On SSI medium scale with Accu-Chek q.6h. for glycemic control Heme: Monitor CBC and coags GI prophylaxis with Protonix 40 mg daily and DVT prophylaxis with SCDs and heparin subcu. Level 3 Thad Mccall MD July 15, 2016 08:38
[2016-07-15] MEDS ORDERED: BUMETANIDE INJ 1 MG/4 ML VIAL IV PUSH ONE ×2 (09:00→12:00)
[2016-07-15] MEDS: FLUTICASONE PROPIONATE 110 MCG/ACT 12 GM INHALER INH SCH ×2 (09:00→20:22)
[2016-07-15] MEDS: TIOTROPIUM BROMIDE 18 MCG INH INH SCH (09:00)
[2016-07-15 09:18] LABS: BANDS 6 % (0-6); NEUTROPHIL # MANUAL DIFF 24.1 TH/MM3 (1.8-7.7); POLYS (SEG NEUTROPHILS) 91 % (16-70); WBC DIFF SAMPLE 100
[2016-07-15 09:20] LABS: PLATELET ESTIMATE SMEAR LOW (NORMAL); PLATELET MORPHOLOGY NORMAL (NORMAL); SCAN/DIFF FINAL DIFF MANUAL
--- NOTE | 2016-07-15 09:25 | RADRPT ---
EXAM DATE/TIME: 07/15/2016 08:28 [facility] COMPARISON: CHEST SINGLE AP, July 14, 2016, 8:42. INDICATIONS : Shortness of Breath MEDICAL HISTORY : Unobtainable SURGICAL HISTORY : thoracentesis ENCOUNTER: Subsequent ACUITY: 4 - 6 days PAIN SCORE: Non-responsive. LOCATION: Bilateral chest FINDINGS: Compare July 14. Previous endotracheal tube and nasogastric tube have been removed. There is increasin g airspace consolidation in both lungs with probable small effusions. No pneumothorax. CONCLUSION: 1. Interval extubation with slight increase in bilateral airspace consolidation since July 14. Silvino Jordan MD on July 15, 2016 at 9:13 Board Certified Radiologist. This report was verified electronically.
[2016-07-15] MEDS ORDERED: ETOMIDATE 20 MG/10 ML VIAL ONE (10:40)
[2016-07-15] MEDS ORDERED: PROPOFOL 1000 MG/100 ML INJ 100 ML ONE (10:41)
[2016-07-15] MEDS ORDERED: ETOMIDATE 20 MG/10 ML VIAL IV PUSH ONE (10:45)
--- NOTE | 2016-07-15 11:17 | HHI.IDPN ---
Subjective Subjective Remarks Notes reviewed D/W Dr Mccall Extubated yesterday, required BIPAP overnight Currently in severe respiratory distress and getting set up for reintubation Her bronch C/E are negative Cytology pending CXR worse today Temps ok BP ok Had R tap 07/12 - 800 ml out, transudate Had paracentesis 07/12 - 4.3L removed, looks transudative Legio and pneumo Ag negative BC negative Sputum neg Mycoplasma Ab negative Chlamydia negative Legionella Ab pending Antibiotics Zithromax Cefepime Vancomycin Past Medical History Reviewed Allergies: Coded Allergies: No Known Allergies (Unverified , 07/09/16) Objective . Vital Signs Date Time Temp Pulse Resp B/P Pulse Ox O2 Delivery O2 Flow Rate FiO2 07/15/16 08:00 122 07/15/16 08:00 98.3 137 42 112/55 85 07/15/16 06:00 126 07/15/16 04:20 95 65 07/15/16 04:00 137 07/15/16 04:00 98.9 137 42 122/84 85 07/15/16 02:00 117 07/15/16 01:19 94 45 07/15/16 00:00 98.5 121 44 116/58 97 07/15/16 00:00 121 07/14/16 22:02 94 45 07/14/16 22:00 126 07/14/16 20:00 123 07/14/16 20:00 98.4 123 29 118/58 91 07/14/16 19:51 95 BiPAP 07/14/16 19:40 95 40 07/14/16 18:00 124 07/14/16 17:00 100 40 07/14/16 16:00 98.5 122 36 126/70 90 07/14/16 16:00 122 07/14/16 14:00 113 07/14/16 12:00 123 07/14/16 12:00 98.1 123 31 123/63 87 07/14/16 07/14/16 07/15/16 15:00 23:00 07:00 Intake Total 1087 ml 221 ml 103 ml Output Total 600 ml 175 ml 225 ml Balance 487 ml 46 ml -122 ml Intake Oral 100 ml 0 ml IV Total 919 ml 121 ml 103 ml Tube Feeding 68 ml Other 100 ml Output Urine Total 600 ml 175 ml 225 ml . Laboratory Tests Test 07/14/16 07/15/16 06:12 06:55 White Blood Count 19.9 TH/MM3 24.8 TH/MM3 Red Blood Count 2.65 MIL/MM3 3.39 MIL/MM3 Hemoglobin 8.7 GM/DL 11.0 GM/DL Hematocrit 27.0 % 34.1 % Mean Corpuscular Volume 101.8 FL 100.4 FL Mean Corpuscular Hemoglobin 32.9 PG 32.4 PG Mean Corpuscular Hemoglobin 32.3 % 32.3 % Concent Red Cell Distribution Width 15.5 % 15.5 % Platelet Count 124 TH/MM3 94 TH/MM3 Mean Platelet Volume 11.1 FL 10.7 FL Neutrophils (%) (Auto) 97.7 % 97.1 % Lymphocytes (%) (Auto) 0.6 % 1.6 % Monocytes (%) (Auto) 1.5 % 0.6 % Eosinophils (%) (Auto) 0.0 % 0.2 % Basophils (%) (Auto) 0.2 % 0.5 % Neutrophils # (Auto) 19.4 TH/MM3 24.1 TH/MM3 Lymphocytes # (Auto) 0.1 TH/MM3 0.4 TH/MM3 Monocytes # (Auto) 0.3 TH/MM3 0.1 TH/MM3 Eosinophils # (Auto) 0.0 TH/MM3 0.0 TH/MM3 Basophils # (Auto) 0.0 TH/MM3 0.1 TH/MM3 CBC Comment DIFF FINAL AUTO DIFF Differential Comment FINAL DIFF MANUAL Differential Total Cells 100 Counted Neutrophils % (Manual) 91 % Band Neutrophils % 6 % Lymphocytes % 1 % Monocytes % 2 % Neutrophils # (Manual) 24.1 TH/MM3 Platelet Estimate LOW Platelet Morphology Comment NORMAL Hematology Comments Laboratory Tests Test 07/14/16 07/15/16 06:12 06:55 Sodium Level 136 MEQ/L 139 MEQ/L Potassium Level 4.7 MEQ/L 4.6 MEQ/L Chloride Level 100 MEQ/L 105 MEQ/L Carbon Dioxide Level 23.5 MEQ/L 21.9 MEQ/L Anion Gap 13 MEQ/L 12 MEQ/L Blood Urea Nitrogen 51 MG/DL 64 MG/DL Creatinine 1.37 MG/DL 1.54 MG/DL Estimat Glomerular Filtration 44 ML/MIN 39 ML/MIN Rate Random Glucose 229 MG/DL 134 MG/DL Calcium Level 7.8 MG/DL 8.4 MG/DL Total Bilirubin 2.7 MG/DL Aspartate Amino Transf 53 U/L (AST/SGOT) Alanine Aminotransferase 37 U/L (ALT/SGPT) Alkaline Phosphatase 114 U/L Total Protein 5.8 GM/DL Albumin 2.7 GM/DL Microbiology Date/Time Procedure Status Source Growth 07/13/16 14:55 Gram Stain - Final Complete Bronchial Washings Bronchial 07/13/16 14:55 Bronchial Culture - Final Complete Bronchial Washings Bronchial MODERATE GROWTH NORMAL RESPIRATORY KYLE 07/13/16 14:55 Acid Fast Stain Received Bronchial Washings Bronchial Pending 07/13/16 14:55 Mycobacterial Culture Received Bronchial Washings Bronchial Pending 07/13/16 14:55 Fungal Smear - Final Resulted Bronchial Washings Bronchial NO FUNGAL ELEMENTS SEEN. 07/13/16 14:55 Fungal Culture Resulted Bronchial Washings Bronchial Pending Imaging Chest X-Ray 07/14/16 0000 Signed Impressions: Service Date/Time: June 08:42 - CONCLUSION: Persistent severe diffuse bilateral airspace consolidation with slight improvement in the consolidation in the upper lung zones. Qasim Osuna MD Thoracentesis Ultrasound 07/12/16 0000 Signed Impressions: Service Date/Time: Tuesday, July 12, 2016 10:17 - CONCLUSION: Uncomplicated ultrasound guided thoracentesis. Garret Verma MD Cyst Biopsy Asp-Paracentesis US 07/12/16 0000 Signed Impressions: Service Date/Time: Tuesday, July 12, 2016 10:17 - CONCLUSION: Uncomplicated ultrasound guided paracentesis. Garret Verma MD Chest X-Ray 07/12/16 0000 Signed Impressions: Service Date/Time: Tuesday, July 12, 2016 11:08 - CONCLUSION: 1. No evidence of pneumothorax following thoracentesis. Jamaal Eastman MD Liver Ultrasound 07/11/16 0000 Signed Impressions: Service Date/Time: Monday, July 11, 2016 10:24 - CONCLUSION: Ascites and pleural effusions. Splenomegaly. Tiny gallstone or gallbladder polyp Qasim Edwards MD Chest X-Ray 07/11/16 0000 Signed Impressions: Service Date/Time: Monday, July 11, 2016 07:52 - CONCLUSION: 1. Endotracheal tube in appropriate position measuring approximately 3.4 cm from the naldo. 2. Stable severe diffuse airspace consolidation bilaterally. Qasim Osuna MD Chest CT 07/11/16 0000 Signed Impressions: Service Date/Time: Monday, July 11, 2016 22:37 - CONCLUSION: Bilateral pleural effusions, slight ascites and significant worsening of airspace consolidation in both lungs. Mert Laurent MD Physical Exam GENERAL: awake, very anxious, and in severe RD SKIN: Warm and dry. Has jaundice. Has spider angiomata in her upper chest HEAD: Atraumatic. Normocephalic. No temporal wasting, or tenderness. EYES: Vici conjunctiva. No petechia or hemorrhage. Has scleral icterus. No injection or drainage. EARS, NOSE AND THROAT: Nose without bleeding or purulent nasal discharge. No sinus tenderness. She is orally intubated. NECK: Trachea midline. Supple and not tender, no meningeal signs CARDIOVASCULAR: Regular rate and rhythm. No murmurs, rubs or gallops heard RESPIRATORY: Diffuse rhonchi ABDOMEN: Soft, not distended, bowel sounds present and normoactive, with mild diffuse tenderness, no guarding or rebound. Liver tender and enlarged. EXTREMITIES: No clubbing, or cyanosis. Has bilateral pitting edema. Both feet well perfused and warm. NEUROLOGICAL: awake, responding. Restless : Cleaning in place, urine looks ok LINE: No evidence of infection Assessment & Plan Remarks IMPRESSION Bilateral infiltrates, worsening in very acute progression, likely more inflammatory, ?ARDS, ?other inflammatory - her CXR has changed very quickly - sputum negative Respiratory failure ETOH hepatitis Leukocytosis, up, steroids likely adding to it RECOMMENDATION Follow C/S Stop vanco On Cefepime Change Zithromax to po For intubation Monitor progress Pulmonary following ?Open lung biopsy ?higher dose of steroids D/W Dr Cal Sánchez covering for ma 07/16-07/18 Whit Rock MD July 15, 2016 11:17
--- NOTE | 2016-07-15 12:23 | RADRPT ---
EXAM DATE/TIME: 07/15/2016 11:53 [facility] COMPARISON: CHEST SINGLE AP, July 15, 2016, 8:28. INDICATIONS : Post intubation MEDICAL HISTORY : unobtainable SURGICAL HISTORY : thoracentesis ENCOUNTER: Subsequent ACUITY: 4 - 6 days PAIN SCORE: Non-responsive. LOCATION: Bilateral chest FINDINGS: Previous placement of endotracheal tube in satisfactory position. There is improved aeration of the l ungs bilaterally. Small effusions. No pneumothorax. CONCLUSION: 1. Placement of endotracheal tube with tip in satisfactory position. Silvino Jordan MD on July 15, 2016 at 12:21 Board Certified Radiologist. This report was verified electronically.
[2016-07-15 12:39] LABS: BASOPHIL # 0.1 TH/MM3 (0-0.2); BASOPHIL % 0.3 % (0.0-2.0); HEMATOCRIT 29.1 % (35.0-46.0); HEMO FLAGS DIFF FINAL; LYMPHOCYTE # 0.2 TH/MM3 (1.0-4.8); MEAN CELL VOLUME 100.8 FL (80.0-100.0); MEAN CORPUSCULAR HEMOGLOBIN 32.5 PG (27.0-34.0); MEAN CORPUSCULAR HGB CONC 32.2 % (32.0-36.0); MONO % 2.4 % (0.0-8.0); NEUT % 96.3 % (16.0-70.0); PLATELET COUNT 100 TH/MM3 (150-450); RED BLOOD COUNT 2.88 MIL/MM3 (4.00-5.30); RED CELL DISTRIBUTION WIDTH 15.9 % (11.6-17.2); WHITE BLOOD COUNT 20.8 TH/MM3 (4.0-11.0)
[2016-07-15 12:51] LABS: BICARBONATE 22.4 MEQ/L (21.0-32.0); POTASSIUM 4.6 MEQ/L (3.5-5.1)
[2016-07-15 12:57] LABS: BLOOD GAS BASE EXCESS -4.2 mmol/L (-2-2); BLOOD GAS CARBOXYHEMOGLOBIN 2.2 % (0-4); BLOOD GAS HCO3 20 mmol/L (22-26); BLOOD GAS METHEMOGLOBIN 1.2 % (0-2); BLOOD GAS O2 HGB SATURATION 97 % (90-100); BLOOD GAS OXYGEN CONTENT 13.2 Vol % (12.0-20.0); BLOOD GAS PCO2 37 mmHg (38-42); BLOOD GAS PO2 262 mmHg (61-120); BLOOD GAS TOTAL HGB 9.2 G/DL (12.0-16.0); CRITICAL VALUE NO; FIO2 50 %; OXYGEN DEVICE VENTILATOR; TEMP CORR TO 98.6; VENT SETTINGS PRVC/AC
[2016-07-15 12:58] LABS: DRAW SITE LT RADIAL; NUMBER OF ARTERIAL PUNCTURES 2; STAT NO; ULNAR PULSE Y
[2016-07-15] MEDS: PROPOFOL 1000 MG/100 ML INJ 100 ML IV SCH ×2 (14:55→23:20)
--- NOTE | 2016-07-15 17:02 | HHI.PR ---
Subjective Remarks 31 YOWFw ith VDRF,Lung infilt,Pl effusion had Paracentesis,4.2 L fluid removed Had Thoracentesis Had bronch Reintubated On ACV being diureased with Bumex Objective Vital Signs Vital Signs Date Time Temp Pulse Resp B/P Pulse Ox O2 Delivery O2 Flow Rate FiO2 07/15/16 16:00 98.8 125 22 101/55 95 07/15/16 16:00 50 07/15/16 16:00 122 07/15/16 14:00 122 07/15/16 13:35 95 50 07/15/16 12:00 122 07/15/16 12:00 50 07/15/16 12:00 98.8 120 23 133/78 85 07/15/16 11:44 50 07/15/16 11:30 50 60 07/15/16 10:00 122 07/15/16 08:00 122 07/15/16 08:00 98.3 137 42 112/55 85 07/15/16 06:00 126 07/15/16 04:20 95 65 07/15/16 04:00 137 07/15/16 04:00 98.9 137 42 122/84 85 07/15/16 02:00 117 07/15/16 01:19 94 45 07/15/16 00:00 98.5 121 44 116/58 97 07/15/16 00:00 121 07/14/16 22:02 94 45 07/14/16 22:00 126 07/14/16 20:00 123 07/14/16 20:00 98.4 123 29 118/58 91 07/14/16 19:51 95 BiPAP 07/14/16 19:40 95 40 07/14/16 18:00 124 I/O 07/14/16 07/14/16 07/14/16 07/15/16 07/15/16 07/15/16 07:00 15:00 23:00 07:00 15:00 23:00 Intake Total 534 ml 1087 ml 221 ml 103 ml 480 ml Output Total 175 ml 600 ml 175 ml 225 ml 800 ml Balance 359 ml 487 ml 46 ml -122 ml -320 ml Intake Oral 100 ml 0 ml 100 ml IV Total 272 ml 919 ml 121 ml 103 ml 360 ml Tube Feeding 262 ml 68 ml 20 ml Other 100 ml Output Urine Total 175 ml 600 ml 175 ml 225 ml 800 ml Result Diagram: 07/15/16 1210 07/15/16 1210 Objective Remarks GENERAL: MBMN WF with RF, extubated on BIPAP SKIN: Warm and dry. HEAD: Normocephalic. EYES: No scleral icterus. No injection or drainage. NECK: Supple, trachea midline. No JVD or lymphadenopathy. CARDIOVASCULAR: Regular rate and rhythm without murmurs, gallops, or rubs. RESPIRATORY: Breath sounds equal bilaterally. No accessory muscle use. Bilat rales GASTROINTESTINAL: Abdomen soft, non-tender, nondistended. MUSCULOSKELETAL: No cyanosis, ++ edema. BACK: Nontender without obvious deformity. No CVA tenderness. A/P Assessment and Plan VDRF, Reintubated 07/15 Bilat lung infilt Pleural effusion Ascitis hypoxia PLAN: vent support Diurease Cont Abx per ID Wean 02 to keep sat >90% IV Solumedrol monitor renal functions. Tomi Mckeon MD July 15, 2016 17:02
[2016-07-15] MEDS: fentaNYL 2,500 MCG/NS 250 ML IV SCH (20:21)
[2016-07-16] VITALS (20 sets, daily range): BP systolic 82–109; BP diastolic 42–75; PULSE 92–121; RESP 14–16; TEMP 97.9–99.2; O2SAT 90–99
[2016-07-16] MEDS: INSULIN NovoLIN REGULAR SUPPLEMENTAL SCALE SQ SCH ×4 (03:00→21:00)
[2016-07-16] MEDS: RESP: ALBUTEROL 2.5 MG/IPRATROPIUM 0.5 MG NEB (SCH) NEB ×6 (03:44→23:49)
[2016-07-16] MEDS: CEFEPIME INJ 2,000 MG in SODIUM CHLORIDE 0.9% INJ 100 ML IV SCH ×2 (05:35→14:43)
[2016-07-16] MEDS: methylPREDNISolone SOD SUCC 40 MG/1 ML VIAL IV PUSH SCH ×2 (05:36→17:23)
[2016-07-16] MEDS: DOCUSATE SODIUM 100 MG CAP PO SCH ×2 (05:40→17:23)
[2016-07-16] MEDS: PENTOXIFYLLINE 400 MG CONTROLLED RELEASE TAB PO SCH ×3 (05:41→22:00)
[2016-07-16] MEDS: fentaNYL 2,500 MCG/NS 250 ML IV SCH ×2 (05:41→18:09)
--- NOTE | 2016-07-16 07:37 | HHI.CCPN ---
Subjective Remarks/Hospital Course The patient is a 31-year-old female with past medical history of ETOH hepatitis , ascites and cirrhosis of the liver with ETOH use who was admitted to [facility] on July 09 for healthcare-associated pneumonia. She had a chest x-ray on July 09 which showed diffuse consolidation and bilateral pleural effusions, likely representing pulmonary edema. The patient was recently discharged from the hospital after she was admitted back on June 10. On her prior admission she had an echocardiogram on June 22 which showed an EF of 50-55%. The patient also had paracentesis performed on June 30 with removal of 1.8 liters of ascitic fluid and she had a thoracentesis performed on the right on June 16 with removal of 800 cc of transudative pleural fluid. The patient was admitted under the hospitalists service and was started on broad -spectrum antibiotics for healthcare-associated pneumonia. A [facility] was called for respiratory distress and the patient was given Lasix at approximately 2 o'clock this morning and transferred to [facility] Critical care medicine was consulted for respiratory distress. Her laboratory data showed worsening leukocytosis with a WBC of 25.7 from 16.2. Her BNP is 529 from 809. Ammonia level less than 10. A repeat chest x-ray showed worsening airspace process. The patient was placed on BiPAP 11/24 with 95% FIO2 and her initial saturation was 98%. When her FIO2 was weaned down she dropped her saturation and initially she refused intubation. She was just given additional Bumex 1 mg IV x1 and Solu-Medrol 80 mg IV push x1. The patient denies any nausea, vomiting or abdominal pain. 07/12 Patient was intubated yesterday for resp failure sedated with Diprivan and Fentanyl. WBC trending down. Afebrile. 07/13 Patient remains intubated and sedated with Diprivan off Fentanyl drip. s/p Right sided thoracentesis yesterday with removal 800ml pleural fluid and CT guided paracentesis with removal 4.3L. 07/14 Patient is intubated with Diprivan and Fentanyl. s/p bronch yesterday by Dr. Mckeon( small mucus plugs removed). Afebrile. 07/15 Patient s/p extubation yesterday. Placed on BIPAP overnight 11/24 with FIO2 65%. Afebrile. 07/16 Patient was reintubated yesterday for resp distress. CXR showed b/l airspace disease. Afebrile. Sedated with Diprivan and Fentanyl. Objective Vital Signs Date Time Temp Pulse Resp B/P Pulse Ox O2 Delivery O2 Flow Rate FiO2 07/16/16 06:00 107 07/16/16 04:35 98 50 07/16/16 04:00 98.5 14 83/42 07/14/16 19:51 BiPAP 07/14/16 10:10 6 Intake and Output 07/15/16 07/15/16 07/16/16 08:00 16:00 00:00 Intake Total 103 ml 480 ml 531 ml Output Total 225 ml 800 ml 275 ml Balance -122 ml -320 ml 256 ml Result Diagram: 07/15/16 1210 07/15/16 1210 Other Results Laboratory Tests Test 07/15/16 07/15/16 12:10 12:53 White Blood Count 20.8 TH/MM3 Red Blood Count 2.88 MIL/MM3 Hemoglobin 9.4 GM/DL Hematocrit 29.1 % Mean Corpuscular Volume 100.8 FL Mean Corpuscular Hemoglobin 32.5 PG Mean Corpuscular Hemoglobin 32.2 % Concent Red Cell Distribution Width 15.9 % Platelet Count 100 TH/MM3 Mean Platelet Volume 10.9 FL Neutrophils (%) (Auto) 96.3 % Lymphocytes (%) (Auto) 1.0 % Monocytes (%) (Auto) 2.4 % Eosinophils (%) (Auto) 0.0 % Basophils (%) (Auto) 0.3 % Neutrophils # (Auto) 20.0 TH/MM3 Lymphocytes # (Auto) 0.2 TH/MM3 Monocytes # (Auto) 0.5 TH/MM3 Eosinophils # (Auto) 0.0 TH/MM3 Basophils # (Auto) 0.1 TH/MM3 CBC Comment DIFF FINAL Differential Comment Sodium Level 138 MEQ/L Potassium Level 4.6 MEQ/L Chloride Level 104 MEQ/L Carbon Dioxide Level 22.4 MEQ/L Anion Gap 12 MEQ/L Blood Urea Nitrogen 66 MG/DL Creatinine 1.63 MG/DL Estimat Glomerular Filtration 36 ML/MIN Rate Random Glucose 160 MG/DL Calcium Level 8.2 MG/DL Blood Gas Puncture Site LT RADIAL Blood Gas Patient Temperature 98.6 Blood Gas HCO3 20 mmol/L Blood Gas Base Excess -4.2 mmol/L Blood Gas Oxygen Saturation 97 % Arterial Blood pH 7.36 Arterial Blood Partial 37 mmHg Pressure CO2 Arterial Blood Partial 262 mmHg Pressure O2 Arterial Blood Oxygen Content 13.2 Vol % Arterial Blood 2.2 % Carboxyhemoglobin Arterial Blood Methemoglobin 1.2 % Blood Gas Hemoglobin 9.2 G/DL Oxygen Delivery Device VENTILATOR Blood Gas Ventilator Setting PRVC/AC Blood Gas Inspired Oxygen 50 % Imaging Last Impressions Chest X-Ray 07/15/16 0000 Signed Impressions: Service Date/Time: Friday, July 15, 2016 11:53 - CONCLUSION: 1. Placement of endotracheal tube with tip in satisfactory position. Silvino Jordan MD Thoracentesis Ultrasound 07/12/16 0000 Signed Impressions: Service Date/Time: Tuesday, July 12, 2016 10:17 - CONCLUSION: Uncomplicated ultrasound guided thoracentesis. Garret Verma MD Cyst Biopsy Asp-Paracentesis US 07/12/16 0000 Signed Impressions: Service Date/Time: Tuesday, July 12, 2016 10:17 - CONCLUSION: Uncomplicated ultrasound guided paracentesis. Garret Verma MD Liver Ultrasound 07/11/16 0000 Signed Impressions: Service Date/Time: Monday, July 11, 2016 10:24 - CONCLUSION: Ascites and pleural effusions. Splenomegaly. Tiny gallstone or gallbladder polyp Qasim Edwards MD Chest CT 07/11/16 0000 Signed Impressions: Service Date/Time: Monday, July 11, 2016 22:37 - CONCLUSION: Bilateral pleural effusions, slight ascites and significant worsening of airspace consolidation in both lungs. Mert Laurent MD Objective Remarks GENERAL: Patient is 31yo anxious on BIPAP SKIN: Warm and dry. HEAD: Normocephalic. EYES: No scleral icterus. No injection or drainage. NECK: Supple, trachea midline. No JVD or lymphadenopathy. Orally intubated CARDIOVASCULAR: Tachycardic without murmurs, gallops, or rubs. RESPIRATORY: B/L equal air entry few coarse BS GASTROINTESTINAL: Abdomen soft, non-tender, nondistended. MUSCULOSKELETAL: No cyanosis, +edema. Neuro: Sedated and intubated A/P Assessment and Plan 1. Resp Insuff 2. Diffuse bilateral airspace disease...improved 3. Pleural effusions s/p Right sided thoracentesis with removal 800ml pleural fluid 07/12 4. Healthcare-associated pneumonia. 5. Leukocytosis...trending down 6. Anemia. 7. Elevated LFTs 8. Cirrhosis of the liver secondary to ETOH use. 9. Hypertension. 10.Recurrent ascites s/p paracentesis performed on June 30. s/p paracentesis on 07/12 with removal 4.3L. Plan Neuro: On Diprivan and Fentanyl infusion for sedation. Daily sedation vacation when appropriate. Continue thiamine, multivitamins and folic acid. on rifaximin and Trental..Ammonia level < 10 Pulm: Continue with vent support keep sat >92% Bronchodilators, solumederol 40mg Q12 ICU vent bundle. Decrease FIO2 40% s/p CT guided thoracentesis 07/12 with removal 800ml -transudative effusion. Pleural fluid culture- NGTD Pulm is following- Dr. Mckeon s/p bronch 07/13( small mucus plugs removed ) follow up on BAL results- NGTD CV: Monitor HR and BP and maintain MAP >65 mmHg. Echo from June 22 showed an EF of 50-55%. Recheck echo. : Monitor renal function, I's and O's, and electrolyte replacement per protocol. s/p CT guided paracentesis 07/12 with removal 4.3L. Follow up on cultures- NGTD Follow up on BMP today, UO 1225ml in 24 hrs GI: On Protonix 40 mg IV daily for GI prophylaxis. Continue with tube feeds- Glucerna 1.5 with goal rate 45ml/hr ID: Continue abx( cefepime, azithromycin) ID is following. Monitor for signs of infections(Fever and WBC) Strep pneumoniae and Legionella urinary antigen negative. Blood cultures 07/09: NGTD, sputum cx from 07/11: NGTD Follow up on BAL results- NGTD 07/12: Peritoneal and pleural fluid cxs: NGTD Endo: On SSI medium scale with Accu-Chek q.6h. for glycemic control Heme: Monitor CBC and coags GI prophylaxis with Protonix 40 mg daily and DVT prophylaxis with SCDs and heparin subcu. Follow up on labs CCT 30 mins Thad Mccall MD July 16, 2016 07:37
[2016-07-16 07:43] LABS: AUTOMATED NEUTROPHIL # 16.8 TH/MM3 (1.8-7.7); BASOPHIL # 0.3 TH/MM3 (0-0.2); BASOPHIL % 1.7 % (0.0-2.0); HEMATOCRIT 25.4 % (35.0-46.0); LYMPH % 1.2 % (9.0-44.0); LYMPHOCYTE # 0.2 TH/MM3 (1.0-4.8); MEAN CELL VOLUME 100.4 FL (80.0-100.0); MEAN CORPUSCULAR HGB CONC 32.9 % (32.0-36.0); MONO % 3.4 % (0.0-8.0); NEUT % 93.7 % (16.0-70.0); PLATELET COUNT 97 TH/MM3 (150-450); RED BLOOD COUNT 2.53 MIL/MM3 (4.00-5.30); RED CELL DISTRIBUTION WIDTH 15.8 % (11.6-17.2); WHITE BLOOD COUNT 17.9 TH/MM3 (4.0-11.0)
[2016-07-16 07:47] LABS: HEMO FLAGS AUTO DIFF
[2016-07-16] MEDS: CHLORHEXIDINE 0.12% (ORAL KIT) 15 ML CUP MT SCH ×2 (08:00→20:00)
[2016-07-16 08:13] LABS: ALKALINE PHOSPHATASE 120 U/L (45-117); ALT (GPT) 34 U/L (10-53); ANION GAP 10 MEQ/L (5-15); AST (GOT) 51 U/L (15-37); BICARBONATE 23.7 MEQ/L (21.0-32.0); BLOOD UREA NITROGEN 78 MG/DL (7-18); CHLORIDE 104 MEQ/L (98-107); GLOMERULAR FILTRATION RATE 29 ML/MIN (>89); MAGNESIUM 2.5 MG/DL (1.5-2.5); POTASSIUM 4.8 MEQ/L (3.5-5.1); SODIUM (NA) 138 MEQ/L (136-145); TOTAL BILIRUBIN ADULT 1.7 MG/DL (0.2-1.0)
[2016-07-16] MEDS: MULTIVITAMIN TAB PO SCH (08:17)
[2016-07-16] MEDS: HEPARIN SODIUM - SQ 10,000 UNITS/ML VIAL SQ SCH ×2 (08:17→23:23)
[2016-07-16] MEDS: RIFAXIMIN 550 MG TAB PO SCH ×2 (08:17→21:00)
[2016-07-16] MEDS: FOLIC ACID 1 MG TAB PO SCH (08:17)
[2016-07-16] MEDS: THIAMINE HCL 100 MG TAB PO SCH (08:18)
[2016-07-16] MEDS: PANTOPRAZOLE SODIUM 40 MG VIAL IV PUSH SCH (08:18)
[2016-07-16] MEDS: SODIUM CHLORIDE 0.9% FLUSH 10 ML FLUSH IV FLUSH SCH ×2 (08:19→21:00)
[2016-07-16] MEDS: AZITHROMYCIN INJ 500 MG in SODIUM CHLOR 0.9% 250 ML INJ 250 ML IV SCH (08:19)
[2016-07-16 08:35] LABS: SCAN/DIFF AUTO DIFF CONFIRMED
[2016-07-16 08:37] LABS: PLATELET ESTIMATE SMEAR LOW (NORMAL); PLATELET MORPHOLOGY NORMAL (NORMAL)
[2016-07-16] MEDS: PROPOFOL 1000 MG/100 ML INJ 100 ML IV SCH (08:50)
[2016-07-16] MEDS: TIOTROPIUM BROMIDE 18 MCG INH INH SCH (09:00)
[2016-07-16] MEDS: guaiFENesin E.R. 600 MG TAB PO SCH ×2 (09:00→21:00)
[2016-07-16] MEDS: FLUTICASONE PROPIONATE 110 MCG/ACT 12 GM INHALER INH SCH ×2 (09:00→21:00)
--- NOTE | 2016-07-16 09:50 | RADRPT ---
EXAM DATE/TIME: 07/16/2016 09:03 [place] COMPARISON: CHEST SINGLE AP, July 15, 2016, 11:53. INDICATIONS : Short of breath. MEDICAL HISTORY : Hepatitis. Ascites. Pleural effusion SURGICAL HISTORY : Thoracentesis ENCOUNTER: Subsequent ACUITY: 1 week PAIN SCORE: Non-responsive. LOCATION: Bilateral chest FINDINGS: Portable AP view of the chest demonstrates a normal-sized cardiac silhouette. ETT remains present wit h tip at the aortic knob level and nasogastric tube courses beyond the GE junction. There is patchy a irspace consolidation throughout the lungs bilaterally but more severe in the lower lung zones. No pn eumothorax is visualized. CONCLUSION: Relatively diffuse bilateral airspace consolidation has not significantly changed. Qasim Osuna MD on July 16, 2016 at 9:48 Board Certified Radiologist. This report was verified electronically.
--- NOTE | 2016-07-16 10:42 | EC ---
Study Study Date:07/16/2016 STUDY CONCLUSIONS SUMMARY - Left ventricle: The cavity size was normal. Wall thickness was normal. Systolic function was normal. The estimated ejection fraction was in the range of 55% to 60%. Wall motion was normal; there were no regional wall motion abnormalities. - Tricuspid valve: Moderate regurgitation. - Pulmonary arteries: Systolic pressure was mildly increased. If LV function is below 40, please consider prescribing an ACEI or ARB or document rationale for non-use. PROCEDURE DATA STUDY STATUS: Elective. Procedure: Transthoracic echocardiography. Image quality was adequate. Scanning was performed from the parasternal, apical, and subcostal acoustic windows. Study completion: The patient tolerated the procedure well. Transthoracic echocardiography. M-mode, complete 2D, complete spectral Doppler, and color Doppler. Patient status: Inpatient. CARDIAC ANATOMY LEFT VENTRICLE: The cavity size was normal. Wall thickness was normal. Systolic function was normal. The estimated ejection fraction was in the range of 55% to 60%. Wall motion was normal; there were no regional wall motion abnormalities. AORTIC VALVE: Not well visualized. Normal thickness leaflets. Doppler: Transvalvular velocity was within the normal range. There was no stenosis. No regurgitation. Peak gradient: 17mm Hg (S). AORTA: Aortic root: The aortic root was normal in size. MITRAL VALVE: Structurally normal valve. Doppler: Transvalvular velocity was within the normal range. There was no evidence for stenosis. Trace to mild regurgitation. Peak gradient: 3mm Hg (D). LEFT ATRIUM: The atrium was normal in size. RIGHT VENTRICLE: The cavity size was normal. Wall thickness was normal. PULMONIC VALVE: Poorly visualized. Doppler: Transvalvular velocity was within the normal range. There was no evidence for stenosis. No regurgitation. TRICUSPID VALVE: Structurally normal valve. Doppler: Transvalvular velocity was within the normal range. Moderate regurgitation. PULMONARY ARTERY: The main pulmonary artery was normal-sized. Systolic pressure was mildly increased. RIGHT ATRIUM: The atrium was normal in size. PERICARDIUM: There was no pericardial effusion. SYSTEMIC VEINS: Inferior vena cava: Not well visualized. BASIC MEASUREMENTS ADULT Normal Left ventricle LV internal dimension, ED, chordal level, 43.1 mm 43-52 PLAX LV internal dimension, ES, chordal level, 33.6 mm 23-38 PLAX Fractional shortening, chordal level, PLAX *22 % >29 LV posterior wall thickness, ED 5.54 mm IVS/LVPW ratio, ED *1.37 <1.3 Ventricular septum Septal thickness, ED 7.6 mm Aortic valve Leaflet separation 19 mm 15-26 Left atrium Anterior-posterior dimension 33 mm Right ventricle RV internal dimension, ED, PLAX 22.1 mm 19-38 BASIC MEASUREMENTS ADULT Normal Aortic valve Leaflet separation 19 mm 15-26 Aorta Root diameter, ED 29 mm 20-37 DOPPLER MEASUREMENTS ADULT Normal Aortic valve Peak velocity, S 205 cm/s Peak gradient, S 17 mm Hg Mitral valve Peak E-wave velocity 83.9 cm/s Peak A-wave velocity 51.8 cm/s Peak gradient, D 3 mm Hg Peak E/A ratio 1.6 Maximal regurgitant velocity 428 cm/s Tricuspid valve Regurgitant peak velocity 323 cm/s Peak RV-RA gradient, S 42 mm Hg Maximal regurgitant velocity 323 cm/s LEGEND: Mean values are shown as u=mean value. Asterisk (*) zavala values outside specified normal range. Prepared and signed by Mariano Fernández [id number]
--- NOTE | 2016-07-16 16:13 | HHI.PR ---
Subjective Remarks 31 YOWFw ith VDRF,Lung infilt,Pl effusion had Paracentesis,4.2 L fluid removed Had Thoracentesis Had bronch Reintubated 07/14 On ACV being diureased with Bumex Sedated with Fentanyl Objective Vital Signs Vital Signs Date Time Temp Pulse Resp B/P Pulse Ox O2 Delivery O2 Flow Rate FiO2 07/16/16 14:00 97 07/16/16 12:46 90 100 07/16/16 12:00 98.0 92 14 109/75 96 07/16/16 12:00 100 07/16/16 12:00 97 07/16/16 10:00 97 07/16/16 08:37 95 40 07/16/16 08:00 97 07/16/16 08:00 50 07/16/16 08:00 97.9 93 14 82/74 97 07/16/16 06:00 107 07/16/16 04:35 98 50 07/16/16 04:00 98.5 103 14 83/42 98 07/16/16 04:00 50 07/16/16 04:00 103 07/16/16 02:00 115 07/16/16 01:40 98 50 07/16/16 00:00 50 07/16/16 00:00 99.2 121 14 98/52 98 07/16/16 00:00 121 07/15/16 22:11 99 50 07/15/16 22:00 123 07/15/16 20:20 100 50 07/15/16 20:00 112 07/15/16 20:00 98.1 112 65 88/47 100 07/15/16 20:00 50 07/15/16 18:00 122 07/15/16 17:39 95 50 I/O 07/15/16 07/15/16 07/15/16 07/16/16 07/16/16 07/16/16 07:00 15:00 23:00 07:00 15:00 23:00 Intake Total 103 ml 480 ml 531 ml 637 ml 1133 ml Output Total 225 ml 800 ml 275 ml 150 ml 300 ml Balance -122 ml -320 ml 256 ml 487 ml 833 ml Intake Oral 0 ml 100 ml IV Total 103 ml 360 ml 342 ml 459 ml 882 ml Tube Feeding 20 ml 189 ml 178 ml 101 ml Other 150 ml Output Urine Total 225 ml 800 ml 275 ml 150 ml 300 ml Result Diagram: 07/16/1671107/16/16711 Objective Remarks GENERAL: MBMN WF with RF, extubated on BIPAP SKIN: Warm and dry. HEAD: Normocephalic. EYES: No scleral icterus. No injection or drainage. NECK: Supple, trachea midline. No JVD or lymphadenopathy. CARDIOVASCULAR: Regular rate and rhythm without murmurs, gallops, or rubs. RESPIRATORY: Breath sounds equal bilaterally. No accessory muscle use. Bilat rales GASTROINTESTINAL: Abdomen soft, non-tender, nondistended. MUSCULOSKELETAL: No cyanosis, ++ edema. BACK: Nontender without obvious deformity. No CVA tenderness. A/P Assessment and Plan VDRF, Reintubated 07/15 Bilat lung infilt Pleural effusion Ascitis hypoxia PLAN: vent support Diurease Cont Abx per ID Wean 02 to keep sat >90% IV Solumedrol monitor renal functions. Sedation with Fentanyl. Tomi Mckeon MD July 16, 2016 16:13
--- NOTE | 2016-07-16 19:51 | HHI.IDPN ---
Subjective Subjective Remarks ID X cover for Dr Rock chart reviewed 31 yo pt with resp failure, culture negative pulmonary infiultratees; liver dz with ascites Increasedvent requirements up to 100% today, PEEP 10, now down to 60% FiO2 No fever, WBC high buyt trending down On sterroids UOP signidicantly dropped today with rising creatinine Had R tap 07/12 - 800 ml out, transudate Had paracentesis 07/12 - 4.3L removed, looks transudative [place] and pneumo Ag negative BC negative Sputum neg Mycoplasma Ab negative Chlamydia negative Legionella Ab pending Antibiotics Zithromax Cefepime Past Medical History Reviewed Allergies: Coded Allergies: No Known Allergies (Unverified , 07/09/16) Objective . Vital Signs Date Time Temp Pulse Resp B/P Pulse Ox O2 Delivery O2 Flow Rate FiO2 07/16/16 18:13 98 50 07/16/16 18:00 97 07/16/16 16:14 99 60 07/16/16 16:00 97 07/16/16 16:00 100 07/16/16 16:00 98.4 96 16 106/73 96 07/16/16 14:00 97 07/16/16 12:46 90 100 07/16/16 12:00 98.0 92 14 109/75 96 07/16/16 12:00 100 07/16/16 12:00 97 07/16/16 10:00 97 07/16/16 08:37 95 40 07/16/16 08:00 97 07/16/16 08:00 50 07/16/16 08:00 97.9 93 14 82/74 97 07/16/16 06:00 107 07/16/16 04:35 98 50 07/16/16 04:00 98.5 103 14 83/42 98 07/16/16 04:00 50 07/16/16 04:00 103 07/16/16 02:00 115 07/16/16 01:40 98 50 07/16/16 00:00 50 07/16/16 00:00 99.2 121 14 98/52 98 07/16/16 00:00 121 07/15/16 22:11 99 50 07/15/16 22:00 123 07/15/16 20:20 100 50 07/15/16 20:00 112 07/15/16 20:00 98.1 112 65 88/47 100 07/15/16 20:00 50 07/15/16 07/15/16 07/16/16 15:00 23:00 07:00 Intake Total 480 ml 531 ml 637 ml Output Total 800 ml 275 ml 150 ml Balance -320 ml 256 ml 487 ml Intake Oral 100 ml IV Total 360 ml 342 ml 459 ml Tube Feeding 20 ml 189 ml 178 ml Output Urine Total 800 ml 275 ml 150 ml . Laboratory Tests Test 07/15/16 07/15/16 07/16/16 06:55 12:10 07:12 White Blood Count 24.8 TH/MM3 20.8 TH/MM3 17.9 TH/MM3 Red Blood Count 3.39 MIL/MM3 2.88 MIL/MM3 2.53 MIL/MM3 Hemoglobin 11.0 GM/DL 9.4 GM/DL 8.4 GM/DL Hematocrit 34.1 % 29.1 % 25.4 % Mean Corpuscular Volume 100.4 FL 100.8 FL 100.4 FL Mean Corpuscular Hemoglobin 32.4 PG 32.5 PG 33.0 PG Mean Corpuscular Hemoglobin 32.3 % 32.2 % 32.9 % Concent Red Cell Distribution Width 15.5 % 15.9 % 15.8 % Platelet Count 94 TH/MM3 100 TH/MM3 97 TH/MM3 Mean Platelet Volume 10.7 FL 10.9 FL 10.9 FL Neutrophils (%) (Auto) 97.1 % 96.3 % 93.7 % Lymphocytes (%) (Auto) 1.6 % 1.0 % 1.2 % Monocytes (%) (Auto) 0.6 % 2.4 % 3.4 % Eosinophils (%) (Auto) 0.2 % 0.0 % 0.0 % Basophils (%) (Auto) 0.5 % 0.3 % 1.7 % Neutrophils # (Auto) 24.1 TH/MM3 20.0 TH/MM3 16.8 TH/MM3 Lymphocytes # (Auto) 0.4 TH/MM3 0.2 TH/MM3 0.2 TH/MM3 Monocytes # (Auto) 0.1 TH/MM3 0.5 TH/MM3 0.6 TH/MM3 Eosinophils # (Auto) 0.0 TH/MM3 0.0 TH/MM3 0.0 TH/MM3 Basophils # (Auto) 0.1 TH/MM3 0.1 TH/MM3 0.3 TH/MM3 CBC Comment AUTO DIFF DIFF FINAL AUTO DIFF Differential Total Cells 100 Counted Neutrophils % (Manual) 91 % Band Neutrophils % 6 % Lymphocytes % 1 % Monocytes % 2 % Neutrophils # (Manual) 24.1 TH/MM3 Differential Comment FINAL DIFF AUTO DIFF MANUAL CONFIRMED Platelet Estimate LOW LOW Platelet Morphology Comment NORMAL NORMAL Hematology Comments Laboratory Tests Test 07/15/16 07/15/16 07/16/16 06:55 12:10 07:12 Sodium Level 139 MEQ/L 138 MEQ/L 138 MEQ/L Potassium Level 4.6 MEQ/L 4.6 MEQ/L 4.8 MEQ/L Chloride Level 105 MEQ/L 104 MEQ/L 104 MEQ/L Carbon Dioxide Level 21.9 MEQ/L 22.4 MEQ/L 23.7 MEQ/L Anion Gap 12 MEQ/L 12 MEQ/L 10 MEQ/L Blood Urea Nitrogen 64 MG/DL 66 MG/DL 78 MG/DL Creatinine 1.54 MG/DL 1.63 MG/DL 1.97 MG/DL Estimat Glomerular Filtration 39 ML/MIN 36 ML/MIN 29 ML/MIN Rate Random Glucose 134 MG/DL 160 MG/DL 193 MG/DL Calcium Level 8.4 MG/DL 8.2 MG/DL 8.0 MG/DL Total Bilirubin 2.7 MG/DL 1.7 MG/DL Aspartate Amino Transf 53 U/L 51 U/L (AST/SGOT) Alanine Aminotransferase 37 U/L 34 U/L (ALT/SGPT) Alkaline Phosphatase 114 U/L 120 U/L Total Protein 5.8 GM/DL 4.8 GM/DL Albumin 2.7 GM/DL 2.1 GM/DL Magnesium Level 2.5 MG/DL Imaging Last Impressions Chest X-Ray 07/16/16 0000 Signed Impressions: Service Date/Time: Saturday, July 16, 2016 09:03 - CONCLUSION: Relatively diffuse bilateral airspace consolidation has not significantly changed. Qasim Osuna MD Thoracentesis Ultrasound 07/12/16 0000 Signed Impressions: Service Date/Time: Tuesday, July 12, 2016 10:17 - CONCLUSION: Uncomplicated ultrasound guided thoracentesis. Garret Verma MD Cyst Biopsy Asp-Paracentesis US 07/12/16 0000 Signed Impressions: Service Date/Time: Tuesday, July 12, 2016 10:17 - CONCLUSION: Uncomplicated ultrasound guided paracentesis. Garret Verma MD Liver Ultrasound 07/11/16 0000 Signed Impressions: Service Date/Time: Monday, July 11, 2016 10:24 - CONCLUSION: Ascites and pleural effusions. Splenomegaly. Tiny gallstone or gallbladder polyp Qasim Edwards MD Chest CT 07/11/16 0000 Signed Impressions: Service Date/Time: Monday, July 11, 2016 22:37 - CONCLUSION: Bilateral pleural effusions, slight ascites and significant worsening of airspace consolidation in both lungs. Metr Laurent MD Physical Exam GENERAL: awake, very anxious, SKIN: Warm and dry. Has jaundice. Has spider angiomata in her upper chest HEAD: Atraumatic. Normocephalic. No temporal wasting, or tenderness. EYES: [place] conjunctiva. No petechia or hemorrhage. Has scleral icterus. No injection or drainage. EARS, NOSE AND THROAT: Nose without bleeding or purulent nasal discharge. No sinus tenderness. She is orally intubated. NECK: Trachea midline. Supple and not tender, no meningeal signs CARDIOVASCULAR: Regular rate and rhythm. No murmurs, rubs or gallops heard RESPIRATORY: Diffuse rhonchi b/l ABDOMEN: Soft, mildly distended, bowel sounds present and normoactive, no tenderness, no guarding or rebound. Liver tender and enlarged. EXTREMITIES: No clubbing, or cyanosis. Has bilateral at least 3+ pitting edema. Both feet well perfused and warm. NEUROLOGICAL: awake, responding. Restless : Cleaning in place, urine looks clear LINE: No evidence of infection Assessment & Plan Remarks IMPRESSION Bilateral infiltrates, worsening in very acute progression, likely more inflammatory, ?ARDS, ?other inflammatory - her CXR has changed very quickly - sputum negative - PNeumonia vs pneumonbitis 2/2 non infectious ethiology Respiratory failure ETOH hepatitis Leukocytosis, up, steroids likely adding to it Lymphopenia, quite prominent ARF , ro IN RECOMMENDATION Follow C/S cont Cefepime cont Zithromax to po Open lung biopsy if no improvment and still no diagnosis - once feasible from resp standpoint on steroids HIV testing urine eos adjust abx renally D/W Ivone Moreno MD July 16, 2016 19:51
[2016-07-17] VITALS (17 sets, daily range): BP systolic 99–106; BP diastolic 51–58; PULSE 86–100; RESP 14–20; TEMP 97.6–99.5; O2SAT 95–99
[2016-07-17] MEDS: INSULIN NovoLIN REGULAR SUPPLEMENTAL SCALE SQ SCH ×4 (03:00→21:00)
[2016-07-17] MEDS: methylPREDNISolone SOD SUCC 40 MG/1 ML VIAL IV PUSH SCH ×2 (04:15→16:38)
[2016-07-17] MEDS: CEFEPIME INJ 2,000 MG in SODIUM CHLORIDE 0.9% INJ 100 ML IV SCH ×2 (04:15→16:39)
[2016-07-17] MEDS: DOCUSATE SODIUM 100 MG CAP PO SCH ×2 (04:15→17:00)
[2016-07-17] MEDS: PENTOXIFYLLINE 400 MG CONTROLLED RELEASE TAB PO SCH ×3 (04:16→22:24)
[2016-07-17] MEDS: RESP: ALBUTEROL 2.5 MG/IPRATROPIUM 0.5 MG NEB (SCH) NEB ×5 (04:51→20:45)
[2016-07-17] MEDS: fentaNYL 2,500 MCG/NS 250 ML IV SCH (06:31)
[2016-07-17] MEDS: AZITHROMYCIN INJ 500 MG in SODIUM CHLOR 0.9% 250 ML INJ 250 ML IV SCH (08:26)
[2016-07-17] MEDS: PANTOPRAZOLE SODIUM 40 MG VIAL IV PUSH SCH (08:27)
[2016-07-17] MEDS: CHLORHEXIDINE 0.12% (ORAL KIT) 15 ML CUP MT SCH ×2 (08:28→20:37)
[2016-07-17] MEDS: HEPARIN SODIUM - SQ 10,000 UNITS/ML VIAL SQ SCH ×2 (08:28→20:35)
[2016-07-17] MEDS: MULTIVITAMIN TAB PO SCH (08:29)
[2016-07-17] MEDS: FOLIC ACID 1 MG TAB PO SCH (08:29)
[2016-07-17] MEDS: THIAMINE HCL 100 MG TAB PO SCH (08:29)
[2016-07-17] MEDS: RIFAXIMIN 550 MG TAB PO SCH ×2 (08:29→20:35)
[2016-07-17] MEDS: FLUTICASONE PROPIONATE 110 MCG/ACT 12 GM INHALER INH SCH ×2 (09:00→21:00)
[2016-07-17] MEDS: TIOTROPIUM BROMIDE 18 MCG INH INH SCH (09:00)
[2016-07-17] MEDS: SODIUM CHLORIDE 0.9% FLUSH 10 ML FLUSH IV FLUSH SCH ×2 (09:00→20:36)
[2016-07-17] MEDS: guaiFENesin E.R. 600 MG TAB PO SCH ×2 (09:00→20:35)
[2016-07-17 09:03] LABS: BASOPHIL # 0.1 TH/MM3 (0-0.2); BASOPHIL % 0.3 % (0.0-2.0); HEMATOCRIT 27.5 % (35.0-46.0); LYMPH % 0.9 % (9.0-44.0); LYMPHOCYTE # 0.2 TH/MM3 (1.0-4.8); MEAN CELL VOLUME 100.3 FL (80.0-100.0); MEAN CORPUSCULAR HEMOGLOBIN 33.1 PG (27.0-34.0); MONO % 3.6 % (0.0-8.0); NEUT % 95.2 % (16.0-70.0); PLATELET COUNT 98 TH/MM3 (150-450); RED BLOOD COUNT 2.74 MIL/MM3 (4.00-5.30); RED CELL DISTRIBUTION WIDTH 15.3 % (11.6-17.2); WHITE BLOOD COUNT 18.9 TH/MM3 (4.0-11.0)
--- NOTE | 2016-07-17 09:05 | HHI.CCPN ---
Subjective Remarks/Hospital Course The patient is a 31-year-old female with past medical history of ETOH hepatitis , ascites and cirrhosis of the liver with ETOH use who was admitted to [facility] on July 09 for healthcare-associated pneumonia. She had a chest x-ray on July 09 which showed diffuse consolidation and bilateral pleural effusions, likely representing pulmonary edema. The patient was recently discharged from the hospital after she was admitted back on June 10. On her prior admission she had an echocardiogram on June 22 which showed an EF of 50-55%. The patient also had paracentesis performed on June 30 with removal of 1.8 liters of ascitic fluid and she had a thoracentesis performed on the right on June 16 with removal of 800 cc of transudative pleural fluid. The patient was admitted under the hospitalists service and was started on broad -spectrum antibiotics for healthcare-associated pneumonia. A [facility] was called for respiratory distress and the patient was given Lasix at approximately 2 o'clock this morning and transferred to [facility]. Critical care medicine was consulted for respiratory distress. Her laboratory data showed worsening leukocytosis with a WBC of 25.7 from 16.2. Her BNP is 529 from 809. Ammonia level less than 10. A repeat chest x-ray showed worsening airspace process. The patient was placed on BiPAP 11/24 with 95% FIO2 and her initial saturation was 98%. When her FIO2 was weaned down she dropped her saturation and initially she refused intubation. She was just given additional Bumex 1 mg IV x1 and Solu-Medrol 80 mg IV push x1. The patient denies any nausea, vomiting or abdominal pain. 07/12 Patient was intubated yesterday for resp failure sedated with Diprivan and Fentanyl. WBC trending down. Afebrile. 07/13 Patient remains intubated and sedated with Diprivan off Fentanyl drip. s/p Right sided thoracentesis yesterday with removal 800ml pleural fluid and CT guided paracentesis with removal 4.3L. 07/14 Patient is intubated with Diprivan and Fentanyl. s/p bronch yesterday by Dr. Mckeon( small mucus plugs removed). Afebrile. 07/15 Patient s/p extubation yesterday. Placed on BIPAP overnight 11/24 with FIO2 65%. Afebrile. 07/16 Patient was reintubated yesterday for resp distress. CXR showed b/l airspace disease. Afebrile. Sedated with Diprivan and Fentanyl. 07/17 Patient is sedated with Fentanyl and intubated. Afebrile. On PRVC/AC with PEEP:10 and FIO2 50%. Objective Vital Signs Date Time Temp Pulse Resp B/P Pulse Ox O2 Delivery O2 Flow Rate FiO2 07/17/16 06:00 86 07/17/16 04:51 98 50 07/17/16 04:00 98.2 14 100/55 07/14/16 19:51 BiPAP 07/14/16 10:10 6 Intake and Output 07/16/16 07/16/16 07/17/16 08:00 16:00 00:00 Intake Total 637 ml 1133 ml 735 ml Output Total 150 ml 300 ml 250 ml Balance 487 ml 833 ml 485 ml Result Diagram: 07/16/16 0712 07/16/16 0712 Imaging Last Impressions Chest X-Ray 07/16/16 0000 Signed Impressions: Service Date/Time: Saturday, July 16, 2016 09:03 - CONCLUSION: Relatively diffuse bilateral airspace consolidation has not significantly changed. Qasim Osuna MD Thoracentesis Ultrasound 07/12/16 0000 Signed Impressions: Service Date/Time: Tuesday, July 12, 2016 10:17 - CONCLUSION: Uncomplicated ultrasound guided thoracentesis. Garret Verma MD Cyst Biopsy Asp-Paracentesis US 07/12/16 0000 Signed Impressions: Service Date/Time: Tuesday, July 12, 2016 10:17 - CONCLUSION: Uncomplicated ultrasound guided paracentesis. Garret Verma MD Liver Ultrasound 07/11/16 0000 Signed Impressions: Service Date/Time: Monday, July 11, 2016 10:24 - CONCLUSION: Ascites and pleural effusions. Splenomegaly. Tiny gallstone or gallbladder polyp Qasim Edwards MD Chest CT 07/11/16 0000 Signed Impressions: Service Date/Time: Monday, July 11, 2016 22:37 - CONCLUSION: Bilateral pleural effusions, slight ascites and significant worsening of airspace consolidation in both lungs. Mert Laurent MD Objective Remarks GENERAL: Patient is 31yo anxious on BIPAP SKIN: Warm and dry. HEAD: Normocephalic. EYES: No scleral icterus. No injection or drainage. NECK: Supple, trachea midline. No JVD or lymphadenopathy. Orally intubated CARDIOVASCULAR: Tachycardic without murmurs, gallops, or rubs. RESPIRATORY: B/L equal air entry few coarse BS GASTROINTESTINAL: Abdomen soft, non-tender, nondistended. MUSCULOSKELETAL: No cyanosis, +edema. Neuro: Sedated and intubated A/P Assessment and Plan 1. VDRF 2. Diffuse bilateral airspace disease...i 3. Pleural effusions s/p Right sided thoracentesis with removal 800ml pleural fluid 07/12 4. Healthcare-associated pneumonia. 5. Leukocytosis...trending down 6. Anemia. 7. Elevated LFTs 8. Cirrhosis of the liver secondary to ETOH use. 9. Hypertension. 10.Recurrent ascites s/p paracentesis performed on June 30. s/p paracentesis on 07/12 with removal 4.3L. Plan Neuro: On Fentanyl infusion for sedation. Daily sedation vacation when appropriate. Continue thiamine, multivitamins and folic acid. on rifaximin and Trental..Ammonia level < 10 Pulm: On PRVC/AC RR 14, TV 500, IT:1.0, PEEP:10, FIO2 50%. Decrease FIO2 40% Continue with vent support keep sat >92% Bronchodilators, solumederol 40mg Q12 ICU vent bundle. s/p CT guided thoracentesis 07/12 with removal 800ml -transudative effusion. Pleural fluid culture- NGTD Pulm is following- Dr. Mckeon s/p bronch 07/13( small mucus plugs removed ) follow up on BAL results- NGTD CV: Monitor HR and BP and maintain MAP >65 mmHg. Echo from June 22 showed an EF of 50-55%. Echo 07/15: EF 55-60%, no RWMA, mod TR. : Monitor renal function, I's and O's, and electrolyte replacement per protocol. s/p CT guided paracentesis 07/12 with removal 4.3L. Follow up on cultures- NGTD Follow up on BMP today, UO 750ml in 24 hrs GI: On Protonix 40 mg IV daily for GI prophylaxis. Continue with tube feeds- Glucerna 1.5 with goal rate 45ml/hr ID: Continue abx( cefepime, azithromycin) ID is following. Monitor for signs of infections(Fever and WBC) Strep pneumoniae and Legionella urinary antigen negative. Blood cultures 07/09: NGTD, sputum cx from 07/11: NGTD Follow up on BAL results- NGTD 07/12: Peritoneal and pleural fluid cxs: NGTD Endo: On SSI medium scale with Accu-Chek q.6h. for glycemic control Heme: Monitor CBC and coags GI prophylaxis with Protonix 40 mg daily and DVT prophylaxis with SCDs and heparin subcu. Follow up on labs CCT 30 mins Thad Mccall MD July 17, 2016 09:05
[2016-07-17 09:07] LABS: HEMO FLAGS AUTO DIFF
[2016-07-17 09:51] LABS: PLATELET ESTIMATE SMEAR LOW (NORMAL); PLATELET MORPHOLOGY NORMAL (NORMAL); SCAN/DIFF AUTO DIFF CONFIRMED; TEARDROP RBCS 1+ (NORMAL)
[2016-07-17 09:59] LABS: ALKALINE PHOSPHATASE 136 U/L (45-117); ALT (GPT) 35 U/L (10-53); ANION GAP 12 MEQ/L (5-15); AST (GOT) 45 U/L (15-37); BICARBONATE 21.6 MEQ/L (21.0-32.0); BLOOD UREA NITROGEN 103 MG/DL (7-18); CHLORIDE 105 MEQ/L (98-107); GLOMERULAR FILTRATION RATE 22 ML/MIN (>89); POTASSIUM 5.3 MEQ/L (3.5-5.1); SODIUM (NA) 139 MEQ/L (136-145); TOTAL BILIRUBIN ADULT 1.5 MG/DL (0.2-1.0)
[2016-07-17] MEDS ORDERED: SODIUM POLYSTYRENE SULFONATE SUSP 15 GM/60 ML CUP PO ONE (10:15)
--- NOTE | 2016-07-17 12:57 | PD.CONS ---
HPI Service Nephrology Consult Requested By Dr. Mccall Reason for Consult Acute renal failure Primary Care Physician No Primary Care Physician History of Present Illness Patient is a 31-year-old white female with history of alcoholic cirrhosis of the liver who has been admitted with respiratory distress, was treated for community-acquired pneumonia, she got worse and has to be intubated currently in ICU critical care has been following since 07/11/16, she was given diuretics however her numbers are getting worse and her BUN is 103 with a creatinine of 2.4 Patient is passing urine however the urine output has declined, she does have increasing swelling lower extremities and does have abdominal distention, echocardiogram showed moderate tricuspid regurgitation EF was 60% Review of Systems ROS Limitations: Clinical Condition Past Family Social History Allergies: Coded Allergies: No Known Allergies (Unverified , 07/09/16) Past Medical History Alcoholic hepatitis/cirrhosis Ascites History of pneumonia Past Surgical History Orthopedic procedure right knee Reported Medications Reported Meds & Active Scripts Active Furosemide 40 Mg Tab 40 Mg PO DAILY 30 Days Ventolin Hfa 18 GM Inh (Albuterol Sulfate) 90 Mcg/Act Aer 2 Puff INH Q4-6H PRN Atrovent HFA 12.9 GM Inh (Ipratropium [place]) 17 Mcg/Act Aer 2 Puff INH QID Flovent Diskus Inh (Fluticasone Powder Inh) 100 Mcg/Blist Aerp 100 Mcg INH BID Ativan (Lorazepam) 0.5 Mg Tab 0.5 Mg PO Q8HR PRN Pentoxifylline ER (Pentoxifylline) 400 Mg Tab 400 Mg PO Q8HR Xifaxan (Rifaximin) 550 Mg Tab 550 Mg PO BID Vitamin B-1 (Thiamine HCl) 100 Mg Tab 100 Mg PO DAILY Pantoprazole (Pantoprazole Sodium) 40 Mg Tab 40 Mg PO DAILY Oyster Shell Calcium (Oyster Shell) 500 Mg Tab 500 Mg PO BID Oxycodone (Oxycodone HCl) 5 Mg Tab 5 Mg PO Q6H PRN Metoprolol Tartrate 25 Mg Tab 12.5 Mg PO Q12HR Folate (Folic Acid) 1 Mg Tab 1 Mg PO DAILY Ceftin (Cefuroxime Axetil) 500 Mg Tab 500 Mg PO Q12HR Active Ordered Medications Current Medications Medications (Trade) Dose Ordered Sig/Deni Route Start Time Stop Time Status Last Admin (NS Flush) 2 ml UNSCH PRN IV FLUSH 07/09/16 16:30 07/11/16 02:14 (NS Flush) 2 ml BID IV FLUSH 07/09/16 21:00 07/16/16 21:00 (Tylenol) 650 mg Q4H PRN PO 07/09/16 16:30 (Zofran Inj) 4 mg Q6H PRN IVP 07/09/16 16:30 07/10/16 10:39 (Dulcolax Supp) 10 mg DAILY PRN RECTAL 07/09/16 16:30 (Colace) 100 mg Q12H PO 07/09/16 17:00 07/17/16 04:15 (Narcan Inj) 0.4 mg UNSCH PRN IV 07/09/16 16:30 Guaifenesin 600 mg 600 mg BID PO 07/09/16 21:00 07/15/16 07:47 (Zithromax Inj/ NS 250 ml Inj) 250 ml @ 250 mls/hr Q24H IV 07/10/16 09:00 07/17/16 08:26 (Folate) 1 mg DAILY PO 07/10/16 09:00 07/17/16 08:29 (Spiriva Inh) 18 mcg DAILY INH 07/10/16 09:00 07/15/16 09:00 (Ativan) 0.5 mg Q8HR PRN PO 07/09/16 17:00 07/15/16 08:16 (TRENtal SR) 400 mg Q8HR PO 07/09/16 22:00 07/16/16 14:42 (Xifaxan) 550 mg BID PO 07/09/16 21:00 07/17/16 08:29 (Flovent Hfa 110 Mcg Inh) 1 puff BID INH 07/09/16 21:00 07/15/16 09:00 (Vitamin B1) 100 mg DAILY PO 07/10/16 09:00 07/17/16 08:29 (Heparin Inj) 5,000 units Q12HR SQ 07/09/16 21:00 07/17/16 08:28 (Robitussin Dm 200-20 Mg/10 ml Liq) 10 ml Q4H PRN PO 07/11/16 03:30 07/11/16 03:47 (Protonix Inj) 40 mg Q24H IV PUSH 07/11/16 09:00 07/17/16 08:27 (D50w (Vial) Inj) 50 ml UNSCH PRN IV 07/11/16 07:45 (Glucagon Inj) 1 mg UNSCH PRN OTHER 07/11/16 07:45 (Theragran) 1 tab DAILY PO 07/12/16 09:00 07/17/16 08:29 (SoluMEDROL INJ) 40 mg Q12H IV PUSH 07/14/16 18:00 07/17/16 04:15 (D50w (Vial) Inj) 50 ml UNSCH PRN IV 07/14/16 08:45 (Glucagon Inj) 1 mg UNSCH PRN OTHER 07/14/16 08:45 (NovoLIN R SUPPLEMENTAL SCALE) 1 Q6H SQ 07/14/16 09:00 07/17/16 08:00 Acetaminophen/ Hydrocodone Bitart 1 tab 1 tab Q6H PRN PO 07/14/16 19:00 07/15/16 10:28 Propofol 100 ml @ 0 mls/hr TITRATE IV 07/15/16 10:45 07/16/16 08:50 (fentaNYL DRIP) 250 ml @ 0 mls/hr TITRATE IV 07/15/16 19:45 07/17/16 06:31 Chlorhexidine Gluconate 15 ml 15 ml BID@08,20 MT 07/16/16 08:00 07/17/16 08:28 (Maxipime Inj/NS Inj) 100 ml @ 200 mls/hr Q12H IV 07/17/16 03:00 07/17/16 04:15 Family History Unknown Social History She used to smoke but quit, she used to drink alcohol heavily and quit drinking about a month ago Physical Exam Vital Signs Vital Signs Date Time Temp Pulse Resp B/P Pulse Ox O2 Delivery O2 Flow Rate FiO2 07/17/16 10:00 93 07/17/16 09:22 45 07/17/16 09:19 96 45 07/17/16 08:00 50 07/17/16 08:00 93 07/17/16 08:00 98.0 97 14 106/58 97 07/17/16 06:00 86 07/17/16 04:51 98 50 07/17/16 04:00 92 07/17/16 04:00 50 07/17/16 04:00 98.2 92 14 100/55 97 07/17/16 02:00 91 07/17/16 00:00 99 07/17/16 00:00 50 07/17/16 00:00 97.9 99 14 103/54 97 07/16/16 23:50 99 50 07/16/16 22:00 96 07/16/16 20:49 98 50 07/16/16 20:00 98.2 97 14 97/51 97 07/16/16 20:00 50 07/16/16 20:00 97 07/16/16 18:13 98 50 07/16/16 18:00 97 07/16/16 16:14 99 60 07/16/16 16:00 97 07/16/16 16:00 100 07/16/16 16:00 98.4 96 16 106/73 96 07/16/16 14:00 97 Physical Exam GENERAL: Well-nourished, well-developed intubated patient. SKIN: Warm and dry. HEAD: Normocephalic. EYES: No scleral icterus. No injection or drainage. NECK: Supple, intubated CARDIOVASCULAR: Tachycardia. RESPIRATORY: Breath sounds diminished at bases. GASTROINTESTINAL: Abdomen soft, distended with ascites present. EXTREMITIES: No cyanosis, 2-3+ edema. NEUROLOGICAL: Under sedation Laboratory Laboratory Tests Test 07/17/16 07/17/16 08:00 08:14 Urine Eosinophils NONE SEEN White Blood Count 18.9 Red Blood Count 2.74 Hemoglobin 9.1 Hematocrit 27.5 Mean Corpuscular Volume 100.3 Mean Corpuscular Hemoglobin 33.1 Mean Corpuscular Hemoglobin 33.0 Concent Red Cell Distribution Width 15.3 Platelet Count 98 Mean Platelet Volume 11.2 Neutrophils (%) (Auto) 95.2 Lymphocytes (%) (Auto) 0.9 Monocytes (%) (Auto) 3.6 Eosinophils (%) (Auto) 0.0 Basophils (%) (Auto) 0.3 Neutrophils # (Auto) 18.0 Lymphocytes # (Auto) 0.2 Monocytes # (Auto) 0.7 Eosinophils # (Auto) 0.0 Basophils # (Auto) 0.1 CBC Comment AUTO DIFF Differential Comment AUTO DIFF CONFIRMED Platelet Estimate LOW Platelet Morphology Comment NORMAL Tear Drop Cells 1+ Sodium Level 139 Potassium Level 5.3 Chloride Level 105 Carbon Dioxide Level 21.6 Anion Gap 12 Blood Urea Nitrogen 103 Creatinine 2.49 Estimat Glomerular Filtration 22 Rate Random Glucose 186 Calcium Level 8.2 Total Bilirubin 1.5 Aspartate Amino Transf 45 (AST/SGOT) Alanine Aminotransferase 35 (ALT/SGPT) Alkaline Phosphatase 136 Total Protein 5.0 Albumin 2.0 Date/Time Procedure Status Source Growth 07/13/16 14:55 Gram Stain - Final Complete Bronchial Washings Bronchial 07/13/16 14:55 Bronchial Culture - Final Complete Bronchial Washings Bronchial MODERATE GROWTH NORMAL RESPIRATORY KYLE 07/13/16 14:55 Fungal Smear - Final Resulted Bronchial Washings Bronchial NO FUNGAL ELEMENTS SEEN. 07/13/16 14:55 Fungal Culture Resulted Bronchial Washings Bronchial Pending 07/13/16 14:55 Acid Fast Stain - Final Resulted Bronchial Washings Bronchial NO ACID FAST BACILLI SEEN 07/13/16 14:55 Mycobacterial Culture Resulted Bronchial Washings Bronchial Pending Result Diagram: 07/17/16 0814 07/17/1614 Imaging Last Impressions Chest X-Ray 07/16/16 0000 Signed Impressions: Service Date/Time: Saturday, July 16, 2016 09:03 - CONCLUSION: Relatively diffuse bilateral airspace consolidation has not significantly changed. Qasim Osuna MD Thoracentesis Ultrasound 07/12/16 0000 Signed Impressions: Service Date/Time: Tuesday, July 12, 2016 10:17 - CONCLUSION: Uncomplicated ultrasound guided thoracentesis. Garret Verma MD Cyst Biopsy Asp-Paracentesis US 07/12/16 0000 Signed Impressions: Service Date/Time: Tuesday, July 12, 2016 10:17 - CONCLUSION: Uncomplicated ultrasound guided paracentesis. Garret Verma MD Liver Ultrasound 07/11/16 0000 Signed Impressions: Service Date/Time: Monday, July 11, 2016 10:24 - CONCLUSION: Ascites and pleural effusions. Splenomegaly. Tiny gallstone or gallbladder polyp Qasim Edwards MD Chest CT 07/11/16 0000 Signed Impressions: Service Date/Time: Monday, July 11, 2016 22:37 - CONCLUSION: Bilateral pleural effusions, slight ascites and significant worsening of airspace consolidation in both lungs. Mert Laurent MD Assessment and Plan Problem List: (1) Acute renal failure Plan: Patient has liver dysfunction along with that she has pneumonia, she is third spacing and has low albumin I will try to give her albumin and use small dose of loop diuretic follow urine output monitor kidney functions Avoid nephrotoxins Check urine sodium and creatinine (2) Hyperkalemia Plan: Try to diurese and follow labs (3) Pneumonia Plan: She is on antibiotics and infectious disease is following Patient is on ventilator (4) Ascites Plan: Due to alcoholic hepatitis Problem Qualifiers (1) Acute renal failure: Qualified Code: N17.9 - Acute renal failure, unspecified acute renal failure type (2) Pneumonia: Qualified Code: J18.9 - Pneumonia of both lungs due to infectious organism, unspecified part of lung Eve Tariq MD July 17, 2016 12:57
[2016-07-17] MEDS: ALBUMIN HUMAN 25% 25 GM/100 ML BAGP IV SCH ×3 (12:58→20:36)
[2016-07-17] MEDS: BUMETANIDE INJ 1 MG/4 ML VIAL IV PUSH SCH ×2 (12:59→17:34)
--- NOTE | 2016-07-17 13:51 | RADRPT ---
EXAM DATE/TIME: 07/17/2016 10:58 [place] COMPARISON: No previous studies available for comparison. INDICATIONS : Acute kidney injury. MEDICAL HISTORY : Pleural effusion. Dyspnea. Ascites. Alcoholic hepatitis. Anxiety. SURGICAL HISTORY : Paracentesis. Thoracentesis. Right knee repair. ENCOUNTER: Initial ACUITY: 2 days PAIN SCORE: Nonresponsive. LOCATION: Bilateral flank MEASUREMENTS: RIGHT KIDNEY: 10.3 x 4.4 x 4.4 cm LEFT KIDNEY: 10.5 x 4.8 x 4.6 cm FINDINGS: RIGHT KIDNEY: Renal cortex is normal in thickness and echotexture. No hydronephrosis, stone, or mass. LEFT KIDNEY: Renal cortex is normal in thickness and echotexture. No hydronephrosis, stone, or mass. BLADDER: Not visualized. Cleaning catheter is present. There is free fluid within the abdomen and pelvis. CONCLUSION: 1. Normal ultrasound appearance of the kidneys. There is no hydronephrosis. 2. Urinary bladder is not visualized. 3. There is free fluid within the abdomen and pelvis. Qasim Osuna MD on July 17, 2016 at 13:48 Board Certified Radiologist. This report was verified electronically.
--- NOTE | 2016-07-17 18:18 | HHI.IDPN ---
Subjective Subjective Remarks ID X cover for Dr Rock chart reviewed dw RN Improved resp status, dowun to 40% FiO2, but UOP is minimal Creainine up to 2.5 WBC up to 18 afebrile urine eos negastive Antibiotics Zithromax Cefepime Past Medical History Reviewed Allergies: Coded Allergies: No Known Allergies (Unverified , 07/09/16) Objective . Vital Signs Date Time Temp Pulse Resp B/P Pulse Ox O2 Delivery O2 Flow Rate FiO2 07/17/16 16:44 99 45 07/17/16 16:00 50 07/17/16 16:00 99.5 87 20 99/53 95 07/17/16 16:00 93 07/17/16 14:00 93 07/17/16 12:52 97 45 07/17/16 12:00 50 07/17/16 12:00 93 07/17/16 12:00 98.4 97 16 99/51 95 07/17/16 10:00 93 07/17/16 09:22 45 07/17/16 09:19 96 45 07/17/16 08:00 50 07/17/16 08:00 93 07/17/16 08:00 98.0 97 14 106/58 97 07/17/16 06:00 86 07/17/16 04:51 98 50 07/17/16 04:00 92 07/17/16 04:00 50 07/17/16 04:00 98.2 92 14 100/55 97 07/17/16 02:00 91 07/17/16 00:00 99 07/17/16 00:00 50 07/17/16 00:00 97.9 99 14 103/54 97 07/16/16 23:50 99 50 07/16/16 22:00 96 07/16/16 20:49 98 50 07/16/16 20:00 98.2 97 14 97/51 97 07/16/16 20:00 50 07/16/16 20:00 97 07/16/16 18:13 98 50 07/16/16 07/16/16 07/17/16 15:00 23:00 07:00 Intake Total 1133 ml 735 ml 704 ml Output Total 300 ml 250 ml 200 ml Balance 833 ml 485 ml 504 ml IV Total 882 ml 337 ml 331 ml Tube Feeding 101 ml 248 ml 223 ml Other 150 ml 150 ml 150 ml Output Urine Total 300 ml 250 ml 200 ml . Laboratory Tests Test 07/16/16 07/17/16 07:12 08:14 White Blood Count 17.9 TH/MM3 18.9 TH/MM3 Red Blood Count 2.53 MIL/MM3 2.74 MIL/MM3 Hemoglobin 8.4 GM/DL 9.1 GM/DL Hematocrit 25.4 % 27.5 % Mean Corpuscular Volume 100.4 FL 100.3 FL Mean Corpuscular Hemoglobin 33.0 PG 33.1 PG Mean Corpuscular Hemoglobin 32.9 % 33.0 % Concent Red Cell Distribution Width 15.8 % 15.3 % Platelet Count 97 TH/MM3 98 TH/MM3 Mean Platelet Volume 10.9 FL 11.2 FL Neutrophils (%) (Auto) 93.7 % 95.2 % Lymphocytes (%) (Auto) 1.2 % 0.9 % Monocytes (%) (Auto) 3.4 % 3.6 % Eosinophils (%) (Auto) 0.0 % 0.0 % Basophils (%) (Auto) 1.7 % 0.3 % Neutrophils # (Auto) 16.8 TH/MM3 18.0 TH/MM3 Lymphocytes # (Auto) 0.2 TH/MM3 0.2 TH/MM3 Monocytes # (Auto) 0.6 TH/MM3 0.7 TH/MM3 Eosinophils # (Auto) 0.0 TH/MM3 0.0 TH/MM3 Basophils # (Auto) 0.3 TH/MM3 0.1 TH/MM3 CBC Comment AUTO DIFF AUTO DIFF Differential Comment AUTO DIFF AUTO DIFF CONFIRMED CONFIRMED Platelet Estimate LOW LOW Platelet Morphology Comment NORMAL NORMAL Tear Drop Cells 1+ Laboratory Tests Test 07/16/16 07/17/16 07/17/16 07:12 08:14 14:51 Sodium Level 138 MEQ/L 139 MEQ/L Potassium Level 4.8 MEQ/L 5.3 MEQ/L 5.1 MEQ/L Chloride Level 104 MEQ/L 105 MEQ/L Carbon Dioxide Level 23.7 MEQ/L 21.6 MEQ/L Anion Gap 10 MEQ/L 12 MEQ/L Blood Urea Nitrogen 78 MG/DL 103 MG/DL Creatinine 1.97 MG/DL 2.49 MG/DL Estimat Glomerular Filtration 29 ML/MIN 22 ML/MIN Rate Random Glucose 193 MG/DL 186 MG/DL Calcium Level 8.0 MG/DL 8.2 MG/DL Magnesium Level 2.5 MG/DL Total Bilirubin 1.7 MG/DL 1.5 MG/DL Aspartate Amino Transf 51 U/L 45 U/L (AST/SGOT) Alanine Aminotransferase 34 U/L 35 U/L (ALT/SGPT) Alkaline Phosphatase 120 U/L 136 U/L Total Protein 4.8 GM/DL 5.0 GM/DL Albumin 2.1 GM/DL 2.0 GM/DL Imaging Last Impressions Renal Ultrasound 07/17/16 Signed Impressions: Service Date/Time: Sunday, July 17, 2016 10:58 - CONCLUSION: 1. Normal ultrasound appearance of the kidneys. There is no hydronephrosis. 2. Urinary bladder is not visualized. 3. There is free fluid within the abdomen and pelvis. Qasim Osuna MD Chest X-Ray 07/16/16 Signed Impressions: Service Date/Time: Saturday, July 16, 2016 09:03 - CONCLUSION: Relatively diffuse bilateral airspace consolidation has not significantly changed. Qasim Osuna MD Thoracentesis Ultrasound 07/12/16 0000 Signed Impressions: Service Date/Time: Tuesday, July 12, 2016 10:17 - CONCLUSION: Uncomplicated ultrasound guided thoracentesis. Garret Verma MD Cyst Biopsy Asp-Paracentesis US 07/12/16 Signed Impressions: Service Date/Time: Tuesday, July 12, 2016 10:17 - CONCLUSION: Uncomplicated ultrasound guided paracentesis. Garret Verma MD Liver Ultrasound 07/11/16 Signed Impressions: Service Date/Time: Monday, July 11, 2016 10:24 - CONCLUSION: Ascites and pleural effusions. Splenomegaly. Tiny gallstone or gallbladder polyp Qasim Edwards MD Chest CT 07/11/16 0000 Signed Impressions: Service Date/Time: Monday, July 11, 2016 22:37 - CONCLUSION: Bilateral pleural effusions, slight ascites and significant worsening of airspace consolidation in both lungs. Mert Laurent MD Physical Exam GENERAL: resting comfortably SKIN: Warm and dry. Has jaundice. Has spider angiomata in her upper chest HEAD: Atraumatic. Normocephalic. No temporal wasting, or tenderness. EYES: [place] conjunctiva. No petechia or hemorrhage. Has scleral icterus. No injection or drainage. EARS, NOSE AND THROAT: Nose without bleeding or purulent nasal discharge. No sinus tenderness. She is orally intubated. CARDIOVASCULAR: Regular rate and rhythm. No murmurs, rubs or gallops heard RESPIRATORY: Diffuse rhonchi b/l ABDOMEN: Soft, mildly distended, bowel sounds present and normoactive, no tenderness, no guarding or rebound. Liver tender and enlarged. EXTREMITIES: No clubbing, or cyanosis. Has bilateral at least 3+ pitting edema. Both feet well perfused and warm. NEUROLOGICAL: awake, responding. Restless : Are[place]o in place, minimal brownish urine in arevalo bag LINE: No evidence of infection Assessment & Plan Remarks IMPRESSION Bilateral infiltrates, worsening in very acute progression, likely more inflammatory, ?ARDS, ?other inflammatory - her CXR has changed very quickly - sputum negative - PNeumonia vs pneumonbitis 2/2 non infectious ethiology Respiratory failure, more stable today ETOH hepatitis Leukocytosis, up, steroids likely adding to it Lymphopenia, quite prominent ARF , no e/o intertitial nephritis (neg urine eos) RECOMMENDATION Follow C/S dc Cefepime start CFTX cont Zithromax to po Open lung biopsy if no improvment and still no diagnosis - once feasible from resp standpoint on steroids HIV testing avoid nephrotoxic / renally excreted abx D/W Ivone Pierce MD July 17, 2016 18:18
[2016-07-17] MEDS: cefTRIAXone INJ 1,000 MG in SODIUM CHLORIDE 0.9% INJ 100 ML IV SCH (18:49)
--- NOTE | 2016-07-17 19:06 | HHI.PR ---
Subjective Remarks 31 YOWFw ith VDRF,Lung infilt,Pl effusion Had bronch Reintubated 07/14 On ACV being diureased with Bumex Sedated with Fentanyl Worsening renal functions Tolerated CPAP 6 min only Objective Vital Signs Vital Signs Date Time Temp Pulse Resp B/P Pulse Ox O2 Delivery O2 Flow Rate FiO2 07/17/16 18:00 93 07/17/16 16:44 99 45 07/17/16 16:00 50 07/17/16 16:00 99.5 87 20 99/53 95 07/17/16 16:00 93 07/17/16 14:00 93 07/17/16 12:52 97 45 07/17/16 12:00 50 07/17/16 12:00 93 07/17/16 12:00 98.4 97 16 99/51 95 07/17/16 10:00 93 07/17/16 09:22 45 07/17/16 09:19 96 45 07/17/16 08:00 50 07/17/16 08:00 93 07/17/16 08:00 98.0 97 14 106/58 97 07/17/16 06:00 86 07/17/16 04:51 98 50 07/17/16 04:00 92 07/17/16 04:00 50 07/17/16 04:00 98.2 92 14 100/55 97 07/17/16 02:00 91 07/17/16 00:00 99 07/17/16 00:00 50 07/17/16 00:00 97.9 99 14 103/54 97 07/16/16 23:50 99 50 07/16/16 22:00 96 07/16/16 20:49 98 50 07/16/16 20:00 98.2 97 14 97/51 97 07/16/16 20:00 50 07/16/16 20:00 97 I/O 07/16/16 07/16/16 07/16/16 07/17/16 07/17/16 07/17/16 07:00 15:00 23:00 07:00 15:00 23:00 Intake Total 637 ml 1133 ml 735 ml 704 ml 1016 ml Output Total 150 ml 300 ml 250 ml 200 ml 150 ml Balance 487 ml 833 ml 485 ml 504 ml 866 ml IV Total 459 ml 882 ml 337 ml 331 ml 665 ml Tube Feeding 178 ml 101 ml 248 ml 223 ml 201 ml Other 150 ml 150 ml 150 ml 150 ml Output Urine Total 150 ml 300 ml 250 ml 200 ml 150 ml # Bowel Movements 2 3 Result Diagram: 07/17/16 0814 07/17/16 1451 Objective Remarks GENERAL: MBMN WF with RF, extubated on BIPAP SKIN: Warm and dry. HEAD: Normocephalic. EYES: No scleral icterus. No injection or drainage. NECK: Supple, trachea midline. No JVD or lymphadenopathy. CARDIOVASCULAR: Regular rate and rhythm without murmurs, gallops, or rubs. RESPIRATORY: Breath sounds equal bilaterally. No accessory muscle use. Bilat rales GASTROINTESTINAL: Abdomen soft, non-tender, nondistended. MUSCULOSKELETAL: No cyanosis, ++ edema. BACK: Nontender without obvious deformity. No CVA tenderness. A/P Assessment and Plan VDRF, Reintubated 07/15 Bilat lung infilt Pleural effusion Ascitis hypoxia PLAN: vent support Diurease Cont Abx per ID Wean 02 to keep sat >90% IV Solumedrol monitor renal functions. Sedation with Fentanyl. Tomi Mckeon MD July 17, 2016 19:06
[2016-07-18] VITALS (37 sets, daily range): BP systolic 94–141; BP diastolic 49–114; PULSE 90–131; RESP 16–50; TEMP 97–98.8; O2SAT 94–100
[2016-07-18] MEDS: RESP: ALBUTEROL 2.5 MG/IPRATROPIUM 0.5 MG NEB (SCH) NEB ×7 (00:02→23:23)
[2016-07-18] MEDS: fentaNYL 2,500 MCG/NS 250 ML IV SCH ×3 (02:24→21:10)
[2016-07-18] MEDS: INSULIN NovoLIN REGULAR SUPPLEMENTAL SCALE SQ SCH ×4 (03:00→21:00)
[2016-07-18] MEDS: DOCUSATE SODIUM 100 MG CAP PO SCH ×2 (05:52→17:05)
[2016-07-18] MEDS: methylPREDNISolone SOD SUCC 40 MG/1 ML VIAL IV PUSH SCH ×2 (05:52→18:01)
[2016-07-18 06:10] LABS: HEMATOCRIT 25.3 % (35.0-46.0); MEAN CELL VOLUME 99.4 FL (80.0-100.0); MEAN CORPUSCULAR HGB CONC 33.2 % (32.0-36.0); PLATELET COUNT 97 TH/MM3 (150-450); RED BLOOD COUNT 2.54 MIL/MM3 (4.00-5.30); RED CELL DISTRIBUTION WIDTH 15.8 % (11.6-17.2); WHITE BLOOD COUNT 19.4 TH/MM3 (4.0-11.0)
[2016-07-18 06:17] LABS: HEMO FLAGS AUTO DIFF
[2016-07-18 06:54] LABS: ALKALINE PHOSPHATASE 105 U/L (45-117); ALT (GPT) 32 U/L (10-53); ANION GAP 15 MEQ/L (5-15); AST (GOT) 44 U/L (15-37); BICARBONATE 19.3 MEQ/L (21.0-32.0); BLOOD UREA NITROGEN 119 MG/DL (7-18); CHLORIDE 105 MEQ/L (98-107); GLOMERULAR FILTRATION RATE 18 ML/MIN (>89); POTASSIUM 4.9 MEQ/L (3.5-5.1); SODIUM (NA) 139 MEQ/L (136-145); TOTAL BILIRUBIN ADULT 1.4 MG/DL (0.2-1.0)
[2016-07-18] MEDS: PANTOPRAZOLE SODIUM 40 MG VIAL IV PUSH SCH (08:29)
[2016-07-18] MEDS: CHLORHEXIDINE 0.12% (ORAL KIT) 15 ML CUP MT SCH ×2 (08:29→21:10)
[2016-07-18] MEDS: HEPARIN SODIUM - SQ 10,000 UNITS/ML VIAL SQ SCH ×2 (08:30→21:07)
[2016-07-18] MEDS: BUMETANIDE INJ 1 MG/4 ML VIAL IV PUSH SCH (08:31)
[2016-07-18] MEDS: guaiFENesin E.R. 600 MG TAB PO SCH ×2 (08:31→21:00)
[2016-07-18] MEDS: AZITHROMYCIN 250 MG TAB PO SCH (08:31)
[2016-07-18] MEDS: THIAMINE HCL 100 MG TAB PO SCH (08:32)
[2016-07-18] MEDS: FOLIC ACID 1 MG TAB PO SCH (08:32)
[2016-07-18] MEDS: MULTIVITAMIN TAB PO SCH (08:32)
[2016-07-18] MEDS: RIFAXIMIN 550 MG TAB PO SCH ×2 (08:38→21:08)
[2016-07-18] MEDS: ALBUMIN HUMAN 25% 25 GM/100 ML BAGP IV SCH ×4 (08:47→21:10)
[2016-07-18] MEDS: FLUTICASONE PROPIONATE 110 MCG/ACT 12 GM INHALER INH SCH ×2 (09:00→21:00)
[2016-07-18] MEDS: TIOTROPIUM BROMIDE 18 MCG INH INH SCH (09:00)
[2016-07-18 09:03] LABS: BANDS 8 % (0-6); NEUTROPHIL # MANUAL DIFF 18.6 TH/MM3 (1.8-7.7); POLYS (SEG NEUTROPHILS) 88 % (16-70); WBC DIFF SAMPLE 100
[2016-07-18 09:04] LABS: PLATELET ESTIMATE SMEAR LOW (NORMAL); PLATELET MORPHOLOGY NORMAL (NORMAL); SCAN/DIFF FINAL DIFF MANUAL
[2016-07-18] MEDS: SODIUM CHLORIDE 0.9% FLUSH 10 ML FLUSH IV FLUSH SCH ×2 (09:13→21:08)
--- NOTE | 2016-07-18 10:43 | HHI.CCPN ---
Subjective Remarks/Hospital Course The patient is a 31-year-old female with past medical history of ETOH hepatitis , ascites and cirrhosis of the liver with ETOH use who was admitted to [facility] on July 09 for healthcare-associated pneumonia. She had a chest x-ray on July 09 which showed diffuse consolidation and bilateral pleural effusions, likely representing pulmonary edema. The patient was recently discharged from the hospital after she was admitted back on June 10. On her prior admission she had an echocardiogram on June 22 which showed an EF of 50-55%. The patient also had paracentesis performed on June 30 with removal of 1.8 liters of ascitic fluid and she had a thoracentesis performed on the right on June 16 with removal of 800 cc of transudative pleural fluid. The patient was admitted under the hospitalists service and was started on broad -spectrum antibiotics for healthcare-associated pneumonia. A [facility]CAT was called for respiratory distress and the patient was given Lasix at approximately 2 o'clock this morning and transferred to [facility] [place] [facility]. Critical care medicine was consulted for respiratory distress. Her laboratory data showed worsening leukocytosis with a WBC of 25.7 from 16.2. Her BNP is 529 from 809. Ammonia level less than 10. A repeat chest x-ray showed worsening airspace process. The patient was placed on BiPAP 11/24 with 95% FIO2 and her initial saturation was 98%. When her FIO2 was weaned down she dropped her saturation and initially she refused intubation. She was just given additional Bumex 1 mg IV x1 and Solu-Medrol 80 mg IV push x1. The patient denies any nausea, vomiting or abdominal pain. 07/12 Patient was intubated yesterday for resp failure sedated with Diprivan and Fentanyl. WBC trending down. Afebrile. 07/13 Patient remains intubated and sedated with Diprivan off Fentanyl drip. s/p Right sided thoracentesis yesterday with removal 800ml pleural fluid and CT guided paracentesis with removal 4.3L. 07/14 Patient is intubated with Diprivan and Fentanyl. s/p bronch yesterday by Dr. Mckeon( small mucus plugs removed). Afebrile. 07/15 Patient s/p extubation yesterday. Placed on BIPAP overnight 11/24 with FIO2 65%. Afebrile. 07/16 Patient was reintubated yesterday for resp distress. CXR showed b/l airspace disease. Afebrile. Sedated with Diprivan and Fentanyl. 07/17 Patient is sedated with Fentanyl and intubated. Afebrile. On PRVC/AC with PEEP:10 and FIO2 50%. 07/18 Patient is sedated with Fentanyl and intubated. Renal function continue to worse with Cr: 2.96 from 2.49 with poor UO. Objective Vital Signs Date Time Temp Pulse Resp B/P Pulse Ox O2 Delivery O2 Flow Rate FiO2 07/18/16 10:03 94 45 07/18/16 06:00 112 07/18/16 04:00 21 105/51 07/18/16 04:00 97.7 07/14/16 19:51 BiPAP 07/14/16 10:10 6 Intake and Output 07/17/16 07/17/16 07/18/16 08:00 16:00 00:00 Intake Total 704 ml 1016 ml 755 ml Output Total 200 ml 150 ml 50 ml Balance 504 ml 866 ml 705 ml Result Diagram: 07/18/16 0546 07/18/16 0546 Other Results Laboratory Tests Test 07/17/16 07/17/16 07/18/16 14:51 15:00 05:46 Potassium Level 5.1 MEQ/L 4.9 MEQ/L Urine Random Creatinine 57.0 MG/DL Urine Random Sodium 24 MEQ/L White Blood Count 19.4 TH/MM3 Red Blood Count 2.54 MIL/MM3 Hemoglobin 8.4 GM/DL Hematocrit 25.3 % Mean Corpuscular Volume 99.4 FL Mean Corpuscular Hemoglobin 33.0 PG Mean Corpuscular Hemoglobin 33.2 % Concent Red Cell Distribution Width 15.8 % Platelet Count 97 TH/MM3 Mean Platelet Volume 11.5 FL Neutrophils (%) (Auto) % Lymphocytes (%) (Auto) % Monocytes (%) (Auto) % Eosinophils (%) (Auto) % Basophils (%) (Auto) % Neutrophils # (Auto) TH/MM3 Lymphocytes # (Auto) TH/MM3 Monocytes # (Auto) TH/MM3 Eosinophils # (Auto) TH/MM3 Basophils # (Auto) TH/MM3 CBC Comment AUTO DIFF Differential Total Cells 100 Counted Neutrophils % (Manual) 88 % Band Neutrophils % 8 % Lymphocytes % 2 % Monocytes % 2 % Neutrophils # (Manual) 18.6 TH/MM3 Differential Comment FINAL DIFF MANUAL Platelet Estimate LOW Platelet Morphology Comment NORMAL Sodium Level 139 MEQ/L Chloride Level 105 MEQ/L Carbon Dioxide Level 19.3 MEQ/L Anion Gap 15 MEQ/L Blood Urea Nitrogen 119 MG/DL Creatinine 2.96 MG/DL Estimat Glomerular Filtration 18 ML/MIN Rate Random Glucose 197 MG/DL Calcium Level 8.4 MG/DL Total Bilirubin 1.4 MG/DL Aspartate Amino Transf 44 U/L (AST/SGOT) Alanine Aminotransferase 32 U/L (ALT/SGPT) Alkaline Phosphatase 105 U/L Total Protein 5.2 GM/DL Albumin 2.8 GM/DL Imaging Last Impressions Renal Ultrasound 07/17/16 0000 Signed Impressions: Service Date/Time: Sunday, July 17, 2016 10:58 - CONCLUSION: 1. Normal ultrasound appearance of the kidneys. There is no hydronephrosis. 2. Urinary bladder is not visualized. 3. There is free fluid within the abdomen and pelvis. Qasim Osuna MD Chest X-Ray 07/16/16 0000 Signed Impressions: Service Date/Time: Saturday, July 16, 2016 09:03 - CONCLUSION: Relatively diffuse bilateral airspace consolidation has not significantly changed. Qasim Osuna MD Thoracentesis Ultrasound 07/12/16 0000 Signed Impressions: Service Date/Time: Tuesday, July 12, 2016 10:17 - CONCLUSION: Uncomplicated ultrasound guided thoracentesis. Garret Verma MD Cyst Biopsy Asp-Paracentesis US 07/12/16 0000 Signed Impressions: Service Date/Time: Tuesday, July 12, 2016 10:17 - CONCLUSION: Uncomplicated ultrasound guided paracentesis. Garret Verma MD Liver Ultrasound 07/11/16 0000 Signed Impressions: Service Date/Time: Monday, July 11, 2016 10:24 - CONCLUSION: Ascites and pleural effusions. Splenomegaly. Tiny gallstone or gallbladder polyp Qasim Edwards MD Chest CT 07/11/16 0000 Signed Impressions: Service Date/Time: Monday, July 11, 2016 22:37 - CONCLUSION: Bilateral pleural effusions, slight ascites and significant worsening of airspace consolidation in both lungs. Mert Laurent MD Objective Remarks GENERAL: Patient is 31yo anxious on BIPAP SKIN: Warm and dry. HEAD: Normocephalic. EYES: No scleral icterus. No injection or drainage. NECK: Supple, trachea midline. No JVD or lymphadenopathy. Orally intubated CARDIOVASCULAR: Tachycardic without murmurs, gallops, or rubs. RESPIRATORY: B/L equal air entry few coarse BS GASTROINTESTINAL: Abdomen soft, non-tender, nondistended. MUSCULOSKELETAL: No cyanosis, +edema. Neuro: Sedated and intubated A/P Assessment and Plan 1. VDRF 2. Diffuse bilateral airspace disease...i 3. Pleural effusions s/p Right sided thoracentesis with removal 800ml pleural fluid 07/12 4. Healthcare-associated pneumonia. 5. Leukocytosis...trending down 6. Anemia. 7. Elevated LFTs 8. Cirrhosis of the liver secondary to ETOH use. 9. Hypertension. 10.Recurrent ascites s/p paracentesis performed on June 30. s/p paracentesis on 07/12 with removal 4.3L. 11. ARF Plan Neuro: On Fentanyl infusion for sedation. Daily sedation vacation when appropriate. Continue thiamine, multivitamins and folic acid. on rifaximin and Trental..Ammonia level < 10 Pulm: On PRVC/AC RR 14, TV 500, IT:1.0, PEEP:5, FIO2 45% Continue with vent support keep sat >92% Bronchodilators, solumederol 40mg Q12 ICU vent bundle. s/p CT guided thoracentesis 07/12 with removal 800ml -transudative effusion. Pleural fluid culture- NGTD Pulm is following- Dr. Mckeon s/p bronch 07/13( small mucus plugs removed ) follow up on BAL results- NGTD Check CXR today CV: Monitor HR and BP and maintain MAP >65 mmHg. Echo from June 22 showed an EF of 50-55%. Echo 07/15: EF 55-60%, no RWMA, mod TR. : Monitor renal function, I's and O's, and electrolyte replacement s/p CT guided paracentesis 07/12 with removal 4.3L. Follow up on cultures- NGTD Renal function is worse today with Cr 2.96 from 2.49 with poor UO, Renal- Dr. Tariq. Renal US: No hydronephrosis. On Bumex 0.5mg IV BID, Albumin 25gms QID Will discuss with renal patent might need HD. GI: On Protonix 40 mg IV daily for GI prophylaxis. Change tube feeds- Nepro with goal rate 40ml/hr ID: Continue abx( Rocephin, azithromycin) ID is following. Monitor for signs of infections(Fever and WBC) Strep pneumoniae and Legionella urinary antigen negative. Blood cultures 07/09: NGTD, sputum cx from 07/11: NGTD Follow up on BAL results- NGTD 07/12: Peritoneal and pleural fluid cxs: NGTD Endo: On SSI medium scale with Accu-Chek q.6h. for glycemic control Heme: Monitor CBC and coags GI prophylaxis with Protonix 40 mg daily and DVT prophylaxis with SCDs and heparin subcu. CCT 30 mins Thad Mccall MD July 18, 2016 10:43
--- NOTE | 2016-07-18 11:30 | RADRPT ---
EXAM DATE/TIME: 07/18/2016 10:42 [place] COMPARISON: CHEST SINGLE AP, July 16, 2016, 9:03. INDICATIONS : Short of breath. MEDICAL HISTORY : Unknown SURGICAL HISTORY : unknown ENCOUNTER: Subsequent ACUITY: One week PAIN SCORE: Non-responsive. LOCATION: Bilateral chest FINDINGS: Portable AP view of the chest demonstrates a normal-sized cardiac silhouette. ETT and nasogastric tub e remain present. Endotracheal tube distal to measures approximately 2 cm from the naldo. Multiple E KG lines overlie the patient. There is relatively diffuse severe bilateral airspace consolidation, le ft greater than right. No pneumothorax is visualized. No definite effusion is seen. CONCLUSION: Stable chest x-ray with relatively diffuse bilateral airspace consolidation, left greater than right. Qasmi Osuna MD on July 18, 2016 at 11:27 Board Certified Radiologist. This report was verified electronically.
--- NOTE | 2016-07-18 12:46 | HHI.NPPN ---
Subjective History of Present Illness 31-year-old with a history of cirrhosis, pneumonia, respiratory failure intubated Objective Data Data 07/17/16 07/18/16 19:00 07:00 Intake Total 1016 ml 1309 ml Output Total 150 ml 100 ml Balance 866 ml 1209 ml IV Total 665 ml 645 ml Tube Feeding 201 ml 339 ml Other 150 ml 325 ml Output Urine Total 150 ml 100 ml # Bowel Movements 5 Vital Signs Date Time Temp Pulse Resp B/P Pulse Ox O2 Delivery O2 Flow Rate FiO2 07/18/16 10:03 94 45 07/18/16 08:14 96 45 07/18/16 06:00 112 07/18/16 04:00 102 21 105/51 99 07/18/16 04:00 50 07/18/16 04:00 97.7 07/18/16 04:00 95 07/18/16 03:49 121 25 122/63 98 07/18/16 03:45 125 20 136/114 100 07/18/16 03:37 98 45 07/18/16 03:31 97 19 132/114 98 07/18/16 03:30 99 20 98 07/18/16 03:15 104 19 112/55 98 07/18/16 03:00 102 21 110/67 98 07/18/16 02:45 102 20 104/56 98 07/18/16 02:30 101 20 104/60 97 07/18/16 02:30 101 20 104/60 97 07/18/16 02:15 90 19 101/56 98 07/18/16 02:15 90 19 101/56 98 07/18/16 02:00 91 23 100/54 98 07/18/16 02:00 91 23 100/54 98 07/18/16 02:00 99 07/18/16 01:45 94 38 99/54 99 07/18/16 01:45 94 38 99/54 99 07/18/16 01:30 96 27 103/55 99 07/18/16 01:30 96 27 103/55 99 07/18/16 01:15 100 37 105/56 99 07/18/16 01:15 100 37 105/56 99 07/18/16 01:00 100 28 100/57 99 07/18/16 01:00 100 28 100/57 99 07/18/16 00:45 101 27 104/58 99 07/18/16 00:45 101 27 104/58 99 07/18/16 00:31 102 33 106/58 99 07/18/16 00:31 102 33 106/58 99 07/18/16 00:30 103 50 99 07/18/16 00:30 103 50 99 07/18/16 00:16 100 26 141/60 99 07/18/16 00:16 100 26 141/60 99 07/18/16 00:02 98 45 07/18/16 00:00 50 07/18/16 00:00 100 32 114/61 99 07/18/16 00:00 97.9 100 16 114/61 99 07/18/16 00:00 100 07/18/16 00:00 100 32 114/61 99 07/17/16 22:00 100 07/17/16 20:45 99 45 07/17/16 20:00 93 07/17/16 20:00 50 07/17/16 20:00 97.6 93 16 105/55 98 07/17/16 18:00 93 07/17/16 16:44 99 45 07/17/16 16:00 50 07/17/16 16:00 99.5 87 20 99/53 95 07/17/16 16:00 93 07/17/16 14:00 93 07/17/16 12:52 97 45 -: 07/18/16 0546 07/18/16 0546 Physical Exam General Appearance: Well Developed Eyes Eye Exam: Pupils Equal Neck Neck Exam: Neck Supple Pulmonary Resp Exam: Decreased Bases Cardiology CV Exam: Tachycardia Gastrointestinal/Abdomen GI Exam: Soft, Distended Extremeties Extremities Exam: Pitting Edema, Dependent Edema Assessment/Plan Problem List: (1) Acute renal failure Plan: Patient has liver dysfunction along with that she has pneumonia, she is third spacing and has low albumin Poor response to low-dose Bumex I will increase that to Bumex drip along with the diuresing. Diuril Monitor response she may need the hemodialysis if urine output and kidney functions continued into a poor (2) Hyperkalemia Plan: Try to diurese and follow labs (3) Pneumonia Plan: She is on antibiotics and infectious disease is following Patient is on ventilator (4) Ascites Plan: Due to alcoholic hepatitis Problem Qualifiers (1) Acute renal failure: Qualified Code: N17.9 - Acute renal failure, unspecified acute renal failure type (2) Pneumonia: Qualified Code: J18.9 - Pneumonia of both lungs due to infectious organism, unspecified part of lung Eve Tariq MD July 18, 2016 12:46
[2016-07-18 12:47] LABS: INTERNATIONAL NORMALIZED RATIO 1.5 RATIO; PROTHROMBIN TIME - PATIENT 16.7 SEC (9.8-11.6)
--- NOTE | 2016-07-18 13:08 | HHI.IDPN ---
Subjective Subjective Remarks UOP is very low, 100/shift Had 5 BMs WBC creeping up - now its 19 K + not much secretions Antibiotics Zithromax CFTX Past Medical History Reviewed Allergies: Coded Allergies: No Known Allergies (Unverified , 07/09/16) Objective . Vital Signs Date Time Temp Pulse Resp B/P Pulse Ox O2 Delivery O2 Flow Rate FiO2 07/18/16 10:03 94 45 07/18/16 08:14 96 45 07/18/16 06:00 112 07/18/16 04:00 102 21 105/51 99 07/18/16 04:00 50 07/18/16 04:00 97.7 07/18/16 04:00 95 07/18/16 03:49 121 25 122/63 98 07/18/16 03:45 125 20 136/114 100 07/18/16 03:37 98 45 07/18/16 03:31 97 19 132/114 98 07/18/16 03:30 99 20 98 07/18/16 03:15 104 19 112/55 98 07/18/16 03:00 102 21 110/67 98 07/18/16 02:45 102 20 104/56 98 07/18/16 02:30 101 20 104/60 97 07/18/16 02:30 101 20 104/60 97 07/18/16 02:15 90 19 101/56 98 07/18/16 02:15 90 19 101/56 98 07/18/16 02:00 91 23 100/54 98 07/18/16 02:00 91 23 100/54 98 07/18/16 02:00 99 07/18/16 01:45 94 38 99/54 99 07/18/16 01:45 94 38 99/54 99 07/18/16 01:30 96 27 103/55 99 07/18/16 01:30 96 27 103/55 99 07/18/16 01:15 100 37 105/56 99 07/18/16 01:15 100 37 105/56 99 07/18/16 01:00 100 28 100/57 99 07/18/16 01:00 100 28 100/57 99 07/18/16 00:45 101 27 104/58 99 07/18/16 00:45 101 27 104/58 99 07/18/16 00:31 102 33 106/58 99 07/18/16 00:31 102 33 106/58 99 07/18/16 00:30 103 50 99 07/18/16 00:30 103 50 99 07/18/16 00:16 100 26 141/60 99 07/18/16 00:16 100 26 141/60 99 07/18/16 00:02 98 45 07/18/16 00:00 50 07/18/16 00:00 100 32 114/61 99 07/18/16 00:00 97.9 100 16 114/61 99 07/18/16 00:00 100 07/18/16 00:00 100 32 114/61 99 07/17/16 22:00 100 07/17/16 20:45 99 45 07/17/16 20:00 93 07/17/16 20:00 50 07/17/16 20:00 97.6 93 16 105/55 98 07/17/16 18:00 93 07/17/16 16:44 99 45 07/17/16 16:00 50 07/17/16 16:00 99.5 87 20 99/53 95 07/17/16 16:00 93 07/17/16 14:00 93 07/17/16 07/17/16 07/18/16 15:00 23:00 07:00 Intake Total 1016 ml 755 ml 554 ml Output Total 150 ml 50 ml 50 ml Balance 866 ml 705 ml 504 ml IV Total 665 ml 424 ml 221 ml Tube Feeding 201 ml 156 ml 183 ml Other 150 ml 175 ml 150 ml Output Urine Total 150 ml 50 ml 50 ml # Bowel Movements 2 3 . Laboratory Tests Test 07/17/16 07/18/16 08:14 05:46 White Blood Count 18.9 TH/MM3 19.4 TH/MM3 Red Blood Count 2.74 MIL/MM3 2.54 MIL/MM3 Hemoglobin 9.1 GM/DL 8.4 GM/DL Hematocrit 27.5 % 25.3 % Mean Corpuscular Volume 100.3 FL 99.4 FL Mean Corpuscular Hemoglobin 33.1 PG 33.0 PG Mean Corpuscular Hemoglobin 33.0 % 33.2 % Concent Red Cell Distribution Width 15.3 % 15.8 % Platelet Count 98 TH/MM3 97 TH/MM3 Mean Platelet Volume 11.2 FL 11.5 FL Neutrophils (%) (Auto) 95.2 % % Lymphocytes (%) (Auto) 0.9 % % Monocytes (%) (Auto) 3.6 % % Eosinophils (%) (Auto) 0.0 % % Basophils (%) (Auto) 0.3 % % Neutrophils # (Auto) 18.0 TH/MM3 TH/MM3 Lymphocytes # (Auto) 0.2 TH/MM3 TH/MM3 Monocytes # (Auto) 0.7 TH/MM3 TH/MM3 Eosinophils # (Auto) 0.0 TH/MM3 TH/MM3 Basophils # (Auto) 0.1 TH/MM3 TH/MM3 CBC Comment AUTO DIFF AUTO DIFF Differential Comment AUTO DIFF FINAL DIFF CONFIRMED MANUAL Platelet Estimate LOW LOW Platelet Morphology Comment NORMAL NORMAL Tear Drop Cells 1+ Differential Total Cells 100 Counted Neutrophils % (Manual) 88 % Band Neutrophils % 8 % Lymphocytes % 2 % Monocytes % 2 % Neutrophils # (Manual) 18.6 TH/MM3 Laboratory Tests Test 07/17/16 07/17/16 07/18/16 08:14 14:51 05:46 Sodium Level 139 MEQ/L 139 MEQ/L Potassium Level 5.3 MEQ/L 5.1 MEQ/L 4.9 MEQ/L Chloride Level 105 MEQ/L 105 MEQ/L Carbon Dioxide Level 21.6 MEQ/L 19.3 MEQ/L Anion Gap 12 MEQ/L 15 MEQ/L Blood Urea Nitrogen 103 MG/DL 119 MG/DL Creatinine 2.49 MG/DL 2.96 MG/DL Estimat Glomerular Filtration 22 ML/MIN 18 ML/MIN Rate Random Glucose 186 MG/DL 197 MG/DL Calcium Level 8.2 MG/DL 8.4 MG/DL Total Bilirubin 1.5 MG/DL 1.4 MG/DL Aspartate Amino Transf 45 U/L 44 U/L (AST/SGOT) Alanine Aminotransferase 35 U/L 32 U/L (ALT/SGPT) Alkaline Phosphatase 136 U/L 105 U/L Total Protein 5.0 GM/DL 5.2 GM/DL Albumin 2.0 GM/DL 2.8 GM/DL Imaging Last Impressions Chest X-Ray 07/18/16 0000 Signed Impressions: Service Date/Time: Monday, July 18, 2016 10:42 - CONCLUSION: Stable chest x- ray with relatively diffuse bilateral airspace consolidation, left greater than right. Qasim Osuna MD Renal Ultrasound 07/17/16 0000 Signed Impressions: Service Date/Time: Sunday, July 17, 2016 10:58 - CONCLUSION: 1. Normal ultrasound appearance of the kidneys. There is no hydronephrosis. 2. Urinary bladder is not visualized. 3. There is free fluid within the abdomen and pelvis. Qasim Osuna MD Thoracentesis Ultrasound 07/12/16 Signed Impressions: Service Date/Time: Tuesday, July 12, 2016 10:17 - CONCLUSION: Uncomplicated ultrasound guided thoracentesis. Garret Verma MD Cyst Biopsy Asp-Paracentesis US 07/12/16 Signed Impressions: Service Date/Time: Tuesday, July 12, 2016 10:17 - CONCLUSION: Uncomplicated ultrasound guided paracentesis. Garret Verma MD Liver Ultrasound 07/11/16 Signed Impressions: Service Date/Time: Monday, July 11, 2016 10:24 - CONCLUSION: Ascites and pleural effusions. Splenomegaly. Tiny gallstone or gallbladder polyp Qasim Edwards MD Chest CT 07/11/16 Signed Impressions: Service Date/Time: Monday, July 11, 2016 22:37 - CONCLUSION: Bilateral pleural effusions, slight ascites and significant worsening of airspace consolidation in both lungs. Mert Laurent MD Physical Exam GENERAL: resting comfortably SKIN: Warm and dry. Has jaundice. Has spider angiomata in her upper chest HEAD: Atraumatic. Normocephalic. No temporal wasting, or tenderness. EYES: [place] conjunctiva. No petechia or hemorrhage. Has scleral icterus. No injection or drainage. EARS, NOSE AND THROAT: Nose without bleeding or purulent nasal discharge. No sinus tenderness. She is orally intubated. CARDIOVASCULAR: Regular rate and rhythm. No murmurs, rubs or gallops heard RESPIRATORY: fairly clear to auscultation today ABDOMEN: Soft, mildly distended, bowel sounds present and normoactive, no tenderness, no guarding or rebound. Liver tender and enlarged. EXTREMITIES: No clubbing, or cyanosis. Has bilateral at least 3+ pitting edema. Both feet well perfused and warm. NEUROLOGICAL: lethargic : Arevalo in place, minimal brownish urine in arevalo bag LINE: No evidence of infection Assessment & Plan Remarks IMPRESSION Bilateral infiltrates, worsening in very acute progression, likely more inflammatory, ?ARDS, ?other inflammatory - her CXR has changed very quickly - sputum negative - PNeumonia vs pneumonitis 2/2 non infectious ethiology Respiratory failure, more stable today ETOH hepatitis Leukocytosis, up, steroids likely adding to it Lymphopenia, quite prominent ARF , no e/o intertitial nephritis (neg urine eos) diarrhea, abx associated RECOMMENDATION Follow C/S cont CFTX cont Zithromax po Open lung biopsy if no improvment and still no diagnosis - once feasible from resp standpoint on steroids HIV testing avoid nephrotoxic / renally excreted abx ro C.diff D/W RN Ivone Wolff MD July 18, 2016 13:08
[2016-07-18] MEDS: PENTOXIFYLLINE 400 MG CONTROLLED RELEASE TAB PO SCH ×2 (13:21→21:09)
[2016-07-18] MEDS ORDERED: CHLOROTHIAZIDE SOD 500 MG VIAL IV ONE (14:00)
[2016-07-18] MEDS ORDERED: BUMETANIDE INJ 100 ML IV SCH (15:00)
--- NOTE | 2016-07-18 17:04 | HHI.PR ---
Subjective Remarks 31 YOWFw ith VDRF,Lung infilt,Pl effusion Had bronch Reintubated 07/14 On ACV Sedated with Fentanyl Worsening renal functions Started on Bumex drip Objective Vital Signs Vital Signs Date Time Temp Pulse Resp B/P Pulse Ox O2 Delivery O2 Flow Rate FiO2 07/18/16 16:25 96 45 07/18/16 16:00 97.0 109 21 96/49 96 07/18/16 16:00 45 07/18/16 16:00 109 07/18/16 14:00 108 07/18/16 13:07 95 45 07/18/16 12:00 97.9 105 21 94/49 96 07/18/16 12:00 105 07/18/16 12:00 45 07/18/16 10:03 94 45 07/18/16 10:00 107 07/18/16 08:14 96 45 07/18/16 08:00 109 07/18/16 08:00 97.3 109 37 114/58 95 07/18/16 08:00 45 07/18/16 06:00 112 07/18/16 04:00 102 21 105/51 99 07/18/16 04:00 50 07/18/16 04:00 97.7 07/18/16 04:00 95 07/18/16 03:49 121 25 122/63 98 07/18/16 03:45 125 20 136/114 100 07/18/16 03:37 98 45 07/18/16 03:31 97 19 132/114 98 07/18/16 03:30 99 20 98 07/18/16 03:15 104 19 112/55 98 07/18/16 03:00 102 21 110/67 98 07/18/16 02:45 102 20 104/56 98 07/18/16 02:30 101 20 104/60 97 07/18/16 02:30 101 20 104/60 97 07/18/16 02:15 90 19 101/56 98 07/18/16 02:15 90 19 101/56 98 07/18/16 02:00 91 23 100/54 98 07/18/16 02:00 91 23 100/54 98 07/18/16 02:00 99 07/18/16 01:45 94 38 99/54 99 07/18/16 01:45 94 38 99/54 99 07/18/16 01:30 96 27 103/55 99 07/18/16 01:30 96 27 103/55 99 07/18/16 01:15 100 37 105/56 99 07/18/16 01:15 100 37 105/56 99 07/18/16 01:00 100 28 100/57 99 07/18/16 01:00 100 28 100/57 99 07/18/16 00:45 101 27 104/58 99 07/18/16 00:45 101 27 104/58 99 07/18/16 00:31 102 33 106/58 99 07/18/16 00:31 102 33 106/58 99 07/18/16 00:30 103 50 99 07/18/16 00:30 103 50 99 07/18/16 00:16 100 26 141/60 99 07/18/16 00:16 100 26 141/60 99 07/18/16 00:02 98 45 07/18/16 00:00 50 07/18/16 00:00 100 32 114/61 99 07/18/16 00:00 97.9 100 16 114/61 99 07/18/16 00:00 100 07/18/16 00:00 100 32 114/61 99 07/17/16 22:00 100 07/17/16 20:45 99 45 07/17/16 20:00 93 07/17/16 20:00 50 07/17/16 20:00 97.6 93 16 105/55 98 07/17/16 18:00 93 I/O 07/17/16 07/17/16 07/17/16 07/18/16 07/18/16 07/18/16 06:59 14:59 22:59 06:59 14:59 22:59 Intake Total 704 ml 1016 ml 755 ml 554 ml 801 ml Output Total 200 ml 150 ml 50 ml 50 ml 35 ml Balance 504 ml 866 ml 705 ml 504 ml 766 ml IV Total 331 ml 665 ml 424 ml 221 ml 319 ml Tube Feeding 223 ml 201 ml 156 ml 183 ml 362 ml Other 150 ml 150 ml 175 ml 150 ml 120 ml Output Urine Total 200 ml 150 ml 50 ml 50 ml 35 ml # Bowel Movements 2 3 2 Result Diagram: 07/18/1654507/18/16545 Objective Remarks GENERAL: MBMN WF with RF, extubated on BIPAP SKIN: Warm and dry. HEAD: Normocephalic. EYES: No scleral icterus. No injection or drainage. NECK: Supple, trachea midline. No JVD or lymphadenopathy. CARDIOVASCULAR: Regular rate and rhythm without murmurs, gallops, or rubs. RESPIRATORY: Breath sounds equal bilaterally. No accessory muscle use. Bilat rales GASTROINTESTINAL: Abdomen soft, non-tender, nondistended. MUSCULOSKELETAL: No cyanosis, ++ edema. BACK: Nontender without obvious deformity. No CVA tenderness. A/P Assessment and Plan VDRF, Reintubated 07/15 Bilat lung infilt Pleural effusion Ascitis hypoxia PLAN: vent support Diurease Cont Abx per ID Wean 02 to keep sat >90% IV Solumedrol monitor renal functions. Sedation with Fentanyl. Diurease with Bumex drip monitor renal Functions Tomi Mckeon MD July 18, 2016 17:04
[2016-07-18] MEDS ORDERED: PROPOFOL 1000 MG/100 ML INJ 100 ML IV SCH (17:45)
[2016-07-18] MEDS ORDERED: METOPROLOL TARTRATE 5 MG/5 ML VIAL ONE (17:47)
[2016-07-18] MEDS ORDERED: METOPROLOL TARTRATE 5 MG/5 ML VIAL IV PUSH ONE (18:00)
[2016-07-18] MEDS: cefTRIAXone INJ 1,000 MG in SODIUM CHLORIDE 0.9% INJ 100 ML IV SCH (18:12)
[2016-07-18 20:45] LABS: C. DIFF EPI 027 PRESUMPTIVE NEGATIVE (NEGATIVE); C. DIFF TOXIN PCR NEGATIVE (NEGATIVE)
[2016-07-18] MEDS: LORazepam 0.5 MG TAB PO PRN (21:07)
[2016-07-19] VITALS (19 sets, daily range): BP systolic 93–105; BP diastolic 44–52; PULSE 117–138; RESP 17–26; TEMP 98.1–99.3; O2SAT 93–99
[2016-07-19] MEDS: INSULIN NovoLIN REGULAR SUPPLEMENTAL SCALE SQ SCH ×4 (03:00→20:47)
[2016-07-19] MEDS: RESP: ALBUTEROL 2.5 MG/IPRATROPIUM 0.5 MG NEB (SCH) NEB ×2 (03:28→07:57)
[2016-07-19] MEDS: PROPOFOL 1000 MG/100 ML INJ 100 ML IV SCH ×3 (04:09→23:38)
[2016-07-19 04:17] LABS: AUTOMATED NEUTROPHIL # 17.6 TH/MM3 (1.8-7.7); BASOPHIL % 0.2 % (0.0-2.0); EOSINOPHIL % 0.1 % (0.0-4.0); LYMPH % 1.6 % (9.0-44.0); LYMPHOCYTE # 0.3 TH/MM3 (1.0-4.8); MEAN CELL VOLUME 103.2 FL (80.0-100.0); MEAN CORPUSCULAR HEMOGLOBIN 32.2 PG (27.0-34.0); MEAN CORPUSCULAR HGB CONC 31.2 % (32.0-36.0); MONO % 6.3 % (0.0-8.0); NEUT % 91.8 % (16.0-70.0); PLATELET COUNT 87 TH/MM3 (150-450); RED BLOOD COUNT 1.94 MIL/MM3 (4.00-5.30); RED CELL DISTRIBUTION WIDTH 15.9 % (11.6-17.2); WHITE BLOOD COUNT 19.2 TH/MM3 (4.0-11.0)
[2016-07-19 04:18] LABS: BICARBONATE 16.8 MEQ/L (21.0-32.0); POTASSIUM 5.1 MEQ/L (3.5-5.1)
[2016-07-19 04:20] LABS: HEMO FLAGS AUTO DIFF
[2016-07-19] MEDS ORDERED: PHYTONADIONE 10 MG/ML VIAL SQ ONE (04:30)
[2016-07-19] MEDS ORDERED: DESMOPRESSIN INJ 20 MCG in SODIUM CHLORIDE 0.9% INJ 50 ML IV ONE (04:30)
[2016-07-19 04:42] LABS: PLATELET ESTIMATE SMEAR LOW (NORMAL); PLATELET MORPHOLOGY NORMAL (NORMAL); SCAN/DIFF AUTO DIFF CONFIRMED
[2016-07-19] MEDS: methylPREDNISolone SOD SUCC 40 MG/1 ML VIAL IV PUSH SCH ×2 (05:05→18:11)
[2016-07-19] MEDS: DOCUSATE SODIUM 100 MG CAP PO SCH ×2 (05:07→17:00)
[2016-07-19] MEDS: PENTOXIFYLLINE 400 MG CONTROLLED RELEASE TAB PO SCH ×3 (05:10→20:48)
[2016-07-19 07:51] LABS: LEGIONELLA PNEUMO 1 IGG <1:64 titer (< 1:64); LEGIONELLA PNEUMO 1 IGM <1:64 titer (< 1:64); LEGIONELLA PNEUMO 2 IGG <1:64 titer (< 1:64); LEGIONELLA PNEUMO 2 IGM <1:64 titer (< 1:64); LEGIONELLA PNEUMO 3 IGG <1:64 titer (< 1:64); LEGIONELLA PNEUMO 3 IGM <1:64 titer (< 1:64); LEGIONELLA PNEUMO 4 IGG <1:64 titer (< 1:64); LEGIONELLA PNEUMO 4 IGM <1:64 titer (< 1:64); LEGIONELLA PNEUMO 5 IGG <1:64 titer (< 1:64); LEGIONELLA PNEUMO 5 IGM <1:64 titer (< 1:64); LEGIONELLA PNEUMO 6 IGG <1:64 titer (< 1:64); LEGIONELLA PNEUMO 6 IGM <1:64 titer (< 1:64)
[2016-07-19] MEDS: AZITHROMYCIN 250 MG TAB PO SCH (08:21)
[2016-07-19] MEDS: THIAMINE HCL 100 MG TAB PO SCH (08:21)
[2016-07-19] MEDS: RIFAXIMIN 550 MG TAB PO SCH ×2 (08:21→20:48)
[2016-07-19] MEDS: MULTIVITAMIN TAB PO SCH (08:21)
[2016-07-19] MEDS: FOLIC ACID 1 MG TAB PO SCH (08:21)
[2016-07-19] MEDS: ALBUMIN HUMAN 25% 25 GM/100 ML BAGP IV SCH ×2 (08:23→13:00)
[2016-07-19] MEDS: HEPARIN SODIUM - SQ 10,000 UNITS/ML VIAL SQ SCH (08:24)
[2016-07-19] MEDS: PANTOPRAZOLE SODIUM 40 MG VIAL IV PUSH SCH (08:24)
[2016-07-19] MEDS: FLUTICASONE PROPIONATE 110 MCG/ACT 12 GM INHALER INH SCH ×2 (08:25→20:49)
[2016-07-19] MEDS: TIOTROPIUM BROMIDE 18 MCG INH INH SCH (08:25)
[2016-07-19] MEDS: CHLORHEXIDINE 0.12% (ORAL KIT) 15 ML CUP MT SCH ×2 (08:25→20:47)
[2016-07-19] MEDS: guaiFENesin E.R. 600 MG TAB PO SCH ×2 (08:25→20:48)
[2016-07-19] MEDS: SODIUM CHLORIDE 0.9% FLUSH 10 ML FLUSH IV FLUSH SCH ×2 (08:25→20:47)
--- NOTE | 2016-07-19 08:38 | HHI.CCPN ---
Subjective Remarks/Hospital Course The patient is a 31-year-old female with past medical history of ETOH hepatitis , ascites and cirrhosis of the liver with ETOH use who was admitted to [facility] on July 09 for healthcare-associated pneumonia. She had a chest x-ray on July 09 which showed diffuse consolidation and bilateral pleural effusions, likely representing pulmonary edema. The patient was recently discharged from the hospital after she was admitted back on June 10. On her prior admission she had an echocardiogram on June 22 which showed an EF of 50-55%. The patient also had paracentesis performed on June 30 with removal of 1.8 liters of ascitic fluid and she had a thoracentesis performed on the right on June 16 with removal of 800 cc of transudative pleural fluid. The patient was admitted under the hospitalists service and was started on broad -spectrum antibiotics for healthcare-associated pneumonia. A [facility] was called for respiratory distress and the patient was given Lasix at approximately 2 o'clock this morning and transferred to [place]. Critical care medicine was consulted for respiratory distress. Her laboratory data showed worsening leukocytosis with a WBC of 25.7 from 16.2. Her BNP is 529 from 809. Ammonia level less than 10. A repeat chest x-ray showed worsening airspace process. The patient was placed on BiPAP 11/24 with 95% FIO2 and her initial saturation was 98%. When her FIO2 was weaned down she dropped her saturation and initially she refused intubation. She was just given additional Bumex 1 mg IV x1 and Solu-Medrol 80 mg IV push x1. The patient denies any nausea, vomiting or abdominal pain. 07/12 Patient was intubated yesterday for resp failure sedated with Diprivan and Fentanyl. WBC trending down. Afebrile. 07/13 Patient remains intubated and sedated with Diprivan off Fentanyl drip. s/p Right sided thoracentesis yesterday with removal 800ml pleural fluid and CT guided paracentesis with removal 4.3L. 07/14 Patient is intubated with Diprivan and Fentanyl. s/p bronch yesterday by Dr. Mckeon( small mucus plugs removed). Afebrile. 07/15 Patient s/p extubation yesterday. Placed on BIPAP overnight 11/24 with FIO2 65%. Afebrile. 07/16 Patient was reintubated yesterday for resp distress. CXR showed b/l airspace disease. Afebrile. Sedated with Diprivan and Fentanyl. 07/17 Patient is sedated with Fentanyl and intubated. Afebrile. On PRVC/AC with PEEP:10 and FIO2 50%. 07/18 Patient is sedated with Fentanyl and intubated. Renal function continue to worse with Cr: 2.96 from 2.49 with poor UO. 07/19 Patient remains sedated with Diprivan and Fentanyl. She developed ? hemoptysis and hematuria overnight 2units PRBC, 2u FFP ordered. Patient was given Vitamin K 10mg x1 and DDAVP. Hgb 6.2 this morning. Renal function is worsening with Cr: 3.47 from 2.96. On Bumex drip 0.25 mg/hr. Objective Vital Signs Date Time Temp Pulse Resp B/P Pulse Ox O2 Delivery O2 Flow Rate FiO2 07/19/16 06:15 98.9 131 17 93/52 93 07/19/16 04:10 45 Intake and Output 07/18/16 07/18/16 07/19/16 08:00 16:00 00:00 Intake Total 554 ml 801 ml 812 ml Output Total 50 ml 35 ml 20 ml Balance 504 ml 766 ml 792 ml Result Diagram: 07/19/16 0359 07/19/16 0359 Other Results Laboratory Tests Test 07/18/16 07/18/16 07/19/16 07/19/16 12:10 17:30 03:59 04:30 Prothrombin Time 16.7 SEC Prothromb Time International 1.5 RATIO Ratio Stool C. difficile Toxin (PCR) NEGATIVE Stl C. difficile Toxin PRESUMPTIVE Epiderm 027 NEGATIVE White Blood Count 19.2 TH/MM3 Red Blood Count 1.94 MIL/MM3 Hemoglobin 6.2 GM/DL Hematocrit 20.0 % Mean Corpuscular Volume 103.2 FL Mean Corpuscular Hemoglobin 32.2 PG Mean Corpuscular Hemoglobin 31.2 % Concent Red Cell Distribution Width 15.9 % Platelet Count 87 TH/MM3 Mean Platelet Volume 11.5 FL Neutrophils (%) (Auto) 91.8 % Lymphocytes (%) (Auto) 1.6 % Monocytes (%) (Auto) 6.3 % Eosinophils (%) (Auto) 0.1 % Basophils (%) (Auto) 0.2 % Neutrophils # (Auto) 17.6 TH/MM3 Lymphocytes # (Auto) 0.3 TH/MM3 Monocytes # (Auto) 1.2 TH/MM3 Eosinophils # (Auto) 0.0 TH/MM3 Basophils # (Auto) 0.0 TH/MM3 CBC Comment AUTO DIFF Differential Comment AUTO DIFF CONFIRMED Platelet Estimate LOW Platelet Morphology Comment NORMAL Sodium Level 138 MEQ/L Potassium Level 5.1 MEQ/L Chloride Level 105 MEQ/L Carbon Dioxide Level 16.8 MEQ/L Anion Gap 16 MEQ/L Blood Urea Nitrogen 127 MG/DL Creatinine 3.47 MG/DL Estimat Glomerular Filtration 15 ML/MIN Rate Random Glucose 252 MG/DL Calcium Level 8.3 MG/DL Phosphorus Level 5.4 MG/DL Blood Type A NEGATIVE Antibody Screen NEGATIVE Crossmatch Leukocyte-Reduced Red Blood Cells Blood Bank Comment Test 07/19/16 04:35 Blood Type A NEGATIVE Imaging Last Impressions Chest X-Ray 07/18/16 0000 Signed Impressions: Service Date/Time: Monday, July 18, 2016 10:42 - CONCLUSION: Stable chest x- ray with relatively diffuse bilateral airspace consolidation, left greater than right. Qasim Osuna MD Renal Ultrasound 07/17/16 0000 Signed Impressions: Service Date/Time: Sunday, July 17, 2016 10:58 - CONCLUSION: 1. Normal ultrasound appearance of the kidneys. There is no hydronephrosis. 2. Urinary bladder is not visualized. 3. There is free fluid within the abdomen and pelvis. Qasim Osuna MD Thoracentesis Ultrasound 07/12/16 0000 Signed Impressions: Service Date/Time: Tuesday, July 12, 2016 10:17 - CONCLUSION: Uncomplicated ultrasound guided thoracentesis. Graret Verma MD Cyst Biopsy Asp-Paracentesis US 07/12/16 0000 Signed Impressions: Service Date/Time: Tuesday, July 12, 2016 10:17 - CONCLUSION: Uncomplicated ultrasound guided paracentesis. Garret Verma MD Liver Ultrasound 07/11/16 0000 Signed Impressions: Service Date/Time: Monday, July 11, 2016 10:24 - CONCLUSION: Ascites and pleural effusions. Splenomegaly. Tiny gallstone or gallbladder polyp Qasim Edwards MD Chest CT 07/11/16 0000 Signed Impressions: Service Date/Time: Monday, July 11, 2016 22:37 - CONCLUSION: Bilateral pleural effusions, slight ascites and significant worsening of airspace consolidation in both lungs. Mert Laurent MD Objective Remarks GENERAL: Patient is 31yo anxious on BIPAP SKIN: Warm and dry. HEAD: Normocephalic. EYES: No scleral icterus. No injection or drainage. NECK: Supple, trachea midline. No JVD or lymphadenopathy. Orally intubated CARDIOVASCULAR: Tachycardic without murmurs, gallops, or rubs. RESPIRATORY: B/L equal air entry few coarse BS GASTROINTESTINAL: Abdomen soft, non-tender, nondistended. MUSCULOSKELETAL: No cyanosis, +edema. Neuro: Sedated and intubated A/P Assessment and Plan 1. VDRF 2. Diffuse bilateral airspace disease...i 3. Pleural effusions s/p Right sided thoracentesis with removal 800ml pleural fluid 07/12 4. Healthcare-associated pneumonia. 5. Leukocytosis.. 6. Anemia, thrombocytopenia 7. Elevated LFTs 8. Cirrhosis of the liver secondary to ETOH use. 9. Hypertension. 10.Recurrent ascites s/p paracentesis performed on June 30. s/p paracentesis on 07/12 with removal 4.3L. 11. ARF Plan Neuro: On Fentanyl/Diprivan infusion for sedation. Daily sedation vacation when appropriate. Continue thiamine, multivitamins and folic acid. on rifaximin and Trental..Ammonia level < 10 Pulm: On PRVC/AC RR 14, TV 500, IT:1.0, PEEP:5, FIO2 45% Continue with vent support keep sat >92% Bronchodilators, solumederol 40mg Q12 ICU vent bundle. s/p CT guided thoracentesis 07/12 with removal 800ml -transudative effusion. Pleural fluid culture- NGTD Pulm is following- Dr. Mckeon s/p bronch 07/13( small mucus plugs removed ) follow up on BAL results- NGTD CV: Monitor HR and BP and maintain MAP >65 mmHg. Echo from June 22 showed an EF of 50-55%. Echo 07/15: EF 55-60%, no RWMA, mod TR. : Monitor renal function, I's and O's, and electrolyte replacement s/p CT guided paracentesis 07/12 with removal 4.3L. Follow up on cultures- NGTD Renal function continue to worse with Cr: 3.47 today from 2.96 with poor UO , Renal- Dr. Tariq. Renal US: No hydronephrosis. On Bumex drip 0.25mg /hr Albumin 25gms QID Will likely need HD today GI: On Protonix 40 mg IV daily for GI prophylaxis. Tube feeds held overnight( Nepro with goal rate 40ml/hr) GI eval for anemia and Hemoccult positive ID: Continue abx( Rocephin, azithromycin) ID is following. Monitor for signs of infections(Fever and WBC) Strep pneumoniae and Legionella urinary antigen negative. Blood cultures 07/09: NGTD, sputum cx from 07/11: NGTD Follow up on BAL results- NGTD 07/12: Peritoneal and pleural fluid cxs: NGTD Endo: On SSI medium scale with Accu-Chek q.6h. for glycemic control Heme: Monitor CBC, for transfusion 2ynits PRBC, 2u FFP today. Patient reciev Vitamin K 10mg x1 and DDAVP overnight, Check H/H post transfusion., monitor Coags/ Fibrinogen level. GI prophylaxis with Protonix 40 mg daily and DVT prophylaxis with SCDs, heparin subcu held. CCT 30 mins Thad Mccall MD July 19, 2016 08:38
[2016-07-19] MEDS ORDERED: CHLOROTHIAZIDE SOD 500 MG VIAL IV SCH (09:00)
--- NOTE | 2016-07-19 11:10 | HHI.NPPN ---
Subjective History of Present Illness 31-year-old with a history of cirrhosis, pneumonia, respiratory failure intubated Objective Data Data 07/18/16 07/19/16 19:00 07:00 Intake Total 801 ml 1297 ml Output Total 35 ml 70 ml Balance 766 ml 1227 ml Intake Oral 0 ml IV Total 319 ml 564 ml Tube Feeding 362 ml 533 ml Other 120 ml 200 ml Output Urine Total 35 ml 70 ml # Bowel Movements 2 2 Vital Signs Date Time Temp Pulse Resp B/P Pulse Ox O2 Delivery O2 Flow Rate FiO2 07/19/16 10:00 123 07/19/16 09:30 98.9 125 25 102/52 95 07/19/16 09:00 122 26 94 07/19/16 08:15 93 45 07/19/16 08:00 98.9 130 25 95 07/19/16 08:00 130 07/19/16 08:00 45 07/19/16 06:15 98.9 131 17 93/52 93 07/19/16 06:00 128 07/19/16 06:00 99.1 129 24 93/44 94 07/19/16 04:10 95 45 07/19/16 04:00 138 07/19/16 04:00 98.1 138 25 93/46 95 07/19/16 04:00 45 07/19/16 04:00 98.5 07/19/16 04:00 138 07/19/16 02:00 125 07/19/16 01:09 95 45 07/19/16 00:00 99.3 123 23 94/46 96 07/19/16 00:00 45 07/19/16 00:00 123 07/18/16 22:42 94 45 07/18/16 22:00 124 07/18/16 20:08 95 45 07/18/16 20:00 45 07/18/16 20:00 125 07/18/16 20:00 98.8 125 23 96/50 94 07/18/16 18:00 131 07/18/16 16:25 96 45 07/18/16 16:00 97.0 109 21 96/49 96 07/18/16 16:00 45 07/18/16 16:00 109 07/18/16 14:00 108 07/18/16 13:07 95 45 07/18/16 12:00 97.9 105 21 94/49 96 07/18/16 12:00 105 07/18/16 12:00 45 -: 07/19/16 0359 07/19/16 0359 Microbiology 07/18/16 Stool Occult Blood ([facility]O) - Final, Complete HEMOCCULT POSITIVE Physical Exam General Appearance: Well Developed Eyes Eye Exam: Pupils Equal Neck Neck Exam: Neck Supple Pulmonary Resp Exam: Decreased Bases Cardiology CV Exam: Tachycardia Gastrointestinal/Abdomen GI Exam: Soft, Distended Extremeties Extremities Exam: Pitting Edema, Dependent Edema Assessment/Plan Problem List: (1) Acute renal failure Plan: Patient has liver dysfunction along with that she has pneumonia, she is third spacing and has low albumin Poor response to diuresis she will need to dialysis as urine output and kidney functions continued to be poor 138 pm seen at dialysis 2.5 L UF today (2) Hyperkalemia Plan: Tried diuretic which failed (3) Pneumonia Plan: She is on antibiotics and infectious disease is following Patient is on ventilator (4) Ascites Plan: Due to alcoholic hepatitis Problem Qualifiers (1) Acute renal failure: Qualified Code: N17.9 - Acute renal failure, unspecified acute renal failure type (2) Pneumonia: Qualified Code: J18.9 - Pneumonia of both lungs due to infectious organism, unspecified part of lung Eve Tariq MD July 19, 2016 11:10
[2016-07-19] MEDS ORDERED: SODIUM CHLOR 0.9% 1000 ML INJ 1,000 ML IV PRN ×3 (11:20)
--- NOTE | 2016-07-19 11:22 | HHI.IDPN ---
Subjective Subjective Remarks Notes reviewed Reintubated 07/15 Has developed worsening renal function and oliguria Having placement of vascath D/W RN Afebrile Not on pressors C/S reviewed Cytology ET aspirate pending C/S reviewed Patient had HIV testing 07/02 - negative Antibiotics Zithromax CFTX Past Medical History Reviewed Allergies: Coded Allergies: No Known Allergies (Unverified , 07/09/16) Objective . Vital Signs Date Time Temp Pulse Resp B/P Pulse Ox O2 Delivery O2 Flow Rate FiO2 07/19/16 10:00 123 07/19/16 09:30 98.9 125 25 102/52 95 07/19/16 09:00 122 26 94 07/19/16 08:15 93 45 07/19/16 08:00 98.9 130 25 95 07/19/16 08:00 130 07/19/16 08:00 45 07/19/16 06:15 98.9 131 17 93/52 93 07/19/16 06:00 128 07/19/16 06:00 99.1 129 24 93/44 94 07/19/16 04:10 95 45 07/19/16 04:00 138 07/19/16 04:00 98.1 138 25 93/46 95 07/19/16 04:00 45 07/19/16 04:00 98.5 07/19/16 04:00 138 07/19/16 02:00 125 07/19/16 01:09 95 45 07/19/16 00:00 99.3 123 23 94/46 96 07/19/16 00:00 45 07/19/16 00:00 123 07/18/16 22:42 94 45 07/18/16 22:00 124 07/18/16 20:08 95 45 07/18/16 20:00 45 07/18/16 20:00 125 07/18/16 20:00 98.8 125 23 96/50 94 07/18/16 18:00 131 07/18/16 16:25 96 45 07/18/16 16:00 97.0 109 21 96/49 96 07/18/16 16:00 45 07/18/16 16:00 109 07/18/16 14:00 108 07/18/16 13:07 95 45 07/18/16 12:00 97.9 105 21 94/49 96 07/18/16 12:00 105 07/18/16 12:00 45 07/18/16 07/18/16 07/19/16 15:00 23:00 07:00 Intake Total 801 ml 812 ml 485 ml Output Total 35 ml 20 ml 50 ml Balance 766 ml 792 ml 435 ml Intake Oral 0 ml 0 ml IV Total 319 ml 351 ml 213 ml Tube Feeding 362 ml 361 ml 172 ml Other 120 ml 100 ml 100 ml Output Urine Total 35 ml 20 ml 50 ml # Bowel Movements 2 0 2 . Laboratory Tests Test 07/18/16 07/19/16 05:46 03:59 White Blood Count 19.4 TH/MM3 19.2 TH/MM3 Red Blood Count 2.54 MIL/MM3 1.94 MIL/MM3 Hemoglobin 8.4 GM/DL 6.2 GM/DL Hematocrit 25.3 % 20.0 % Mean Corpuscular Volume 99.4 FL 103.2 FL Mean Corpuscular Hemoglobin 33.0 PG 32.2 PG Mean Corpuscular Hemoglobin 33.2 % 31.2 % Concent Red Cell Distribution Width 15.8 % 15.9 % Platelet Count 97 TH/MM3 87 TH/MM3 Mean Platelet Volume 11.5 FL 11.5 FL Neutrophils (%) (Auto) % 91.8 % Lymphocytes (%) (Auto) % 1.6 % Monocytes (%) (Auto) % 6.3 % Eosinophils (%) (Auto) % 0.1 % Basophils (%) (Auto) % 0.2 % Neutrophils # (Auto) TH/MM3 17.6 TH/MM3 Lymphocytes # (Auto) TH/MM3 0.3 TH/MM3 Monocytes # (Auto) TH/MM3 1.2 TH/MM3 Eosinophils # (Auto) TH/MM3 0.0 TH/MM3 Basophils # (Auto) TH/MM3 0.0 TH/MM3 CBC Comment AUTO DIFF AUTO DIFF Differential Total Cells 100 Counted Neutrophils % (Manual) 88 % Band Neutrophils % 8 % Lymphocytes % 2 % Monocytes % 2 % Neutrophils # (Manual) 18.6 TH/MM3 Differential Comment FINAL DIFF AUTO DIFF MANUAL CONFIRMED Platelet Estimate LOW LOW Platelet Morphology Comment NORMAL NORMAL Laboratory Tests Test 07/17/16 07/18/16 07/19/16 14:51 05:46 03:59 Potassium Level 5.1 MEQ/L 4.9 MEQ/L 5.1 MEQ/L Sodium Level 139 MEQ/L 138 MEQ/L Chloride Level 105 MEQ/L 105 MEQ/L Carbon Dioxide Level 19.3 MEQ/L 16.8 MEQ/L Anion Gap 15 MEQ/L 16 MEQ/L Blood Urea Nitrogen 119 MG/DL 127 MG/DL Creatinine 2.96 MG/DL 3.47 MG/DL Estimat Glomerular Filtration 18 ML/MIN 15 ML/MIN Rate Random Glucose 197 MG/DL 252 MG/DL Calcium Level 8.4 MG/DL 8.3 MG/DL Total Bilirubin 1.4 MG/DL Aspartate Amino Transf 44 U/L (AST/SGOT) Alanine Aminotransferase 32 U/L (ALT/SGPT) Alkaline Phosphatase 105 U/L Total Protein 5.2 GM/DL Albumin 2.8 GM/DL Phosphorus Level 5.4 MG/DL Microbiology Date/Time Procedure Status Source Growth 07/18/16 17:30 Stool Occult Blood ([facility]O) - Final Complete Stool Stool HEMOCCULT POSITIVE Imaging Last Impressions Chest X-Ray 07/18/16 0000 Signed Impressions: Service Date/Time: Monday, July 18, 2016 10:42 - CONCLUSION: Stable chest x- ray with relatively diffuse bilateral airspace consolidation, left greater than right. Qasim Osuna MD Renal Ultrasound 07/17/16 0000 Signed Impressions: Service Date/Time: Sunday, July 17, 2016 10:58 - CONCLUSION: 1. Normal ultrasound appearance of the kidneys. There is no hydronephrosis. 2. Urinary bladder is not visualized. 3. There is free fluid within the abdomen and pelvis. Qasim Osuna MD Thoracentesis Ultrasound 07/12/16 0000 Signed Impressions: Service Date/Time: Tuesday, July 12, 2016 10:17 - CONCLUSION: Uncomplicated ultrasound guided thoracentesis. Garret Verma MD Cyst Biopsy Asp-Paracentesis US 07/12/16 0000 Signed Impressions: Service Date/Time: Tuesday, July 12, 2016 10:17 - CONCLUSION: Uncomplicated ultrasound guided paracentesis. Garret Verma MD Liver Ultrasound 07/11/16 0000 Signed Impressions: Service Date/Time: Monday, July 11, 2016 10:24 - CONCLUSION: Ascites and pleural effusions. Splenomegaly. Tiny gallstone or gallbladder polyp Qasim Edwards MD Chest CT 07/11/16 0000 Signed Impressions: Service Date/Time: Monday, July 11, 2016 22:37 - CONCLUSION: Bilateral pleural effusions, slight ascites and significant worsening of airspace consolidation in both lungs. Mert Laurent MD Physical Exam GENERAL: on the vent, having procedure SKIN: Warm and dry. Has jaundice. Has spider angiomata in her upper chest HEAD: Atraumatic. Normocephalic. No temporal wasting, or tenderness. EYES: [place] conjunctiva. No petechia or hemorrhage. Has scleral icterus. No injection or drainage. EARS, NOSE AND THROAT: Nose without bleeding or purulent nasal discharge. She is orally intubated. CARDIOVASCULAR: Regular rate and rhythm. No murmurs, rubs or gallops heard CHEST: Diffuse rhonchi ABDOMEN: Soft, mildly distended, bowel sounds present and normoactive, no tenderness, no guarding or rebound. EXTREMITIES: No clubbing, or cyanosis. Has bilateral at least 3+ pitting edema. Both feet well perfused and warm. NEUROLOGICAL: lethargic : Arevalo in place, minimal brownish urine in arevalo bag LINE: No evidence of infection Assessment & Plan Remarks IMPRESSION Bilateral infiltrates, worsening in very acute progression, likely more inflammatory, ?ARDS, ?other inflammatory - her CXR has changed very quickly - sputum negative - pneumonia vs pneumonitis 2/2 non infectious etiology Respiratory failure, reintubated 07/15 ETOH hepatitis Leukocytosis, up, steroids likely adding to it ARF , no e/o intertitial nephritis (neg urine eos) Diarrhea, abx associated RECOMMENDATION Follow C/S Continue Rocephin Continue Zithromax po Open lung biopsy if no improvement and still no diagnosis - once feasible from resp standpoint On steroids To be started on HD D/W RN D/W Whit Garcia MD July 19, 2016 11:22
[2016-07-19] MEDS ORDERED: HEPARIN SODIUM - IV 10,000 UNITS/10 ML VIAL IVF PRN (11:30)
[2016-07-19] MEDS ORDERED: ONDANSETRON HCL 4 MG/2 ML VIAL IV PRN (11:30)
[2016-07-19] MEDS ORDERED: MANNITOL 12.5 GM/50 ML VIAL IV PRN (11:30)
[2016-07-19] MEDS ORDERED: diphenhydrAMINE HCL 25 MG CAP PO PRN (11:30)
[2016-07-19] MEDS ORDERED: cloNIDine HCL 0.1 MG TAB PO PRN (11:30)
[2016-07-19] MEDS ORDERED: ACETAMINOPHEN 325 MG TAB PO PRN (11:30)
[2016-07-19] MEDS ORDERED: GELATIN 12 MM/7 MM FOAM TOP PRN (11:30)
[2016-07-19] MEDS ORDERED: NITROGLYCERIN 0.4 MG SL 25 TABS/BTL SL PRN (11:30)
[2016-07-19] MEDS ORDERED: SODIUM CHLORIDE 0.9% FLUSH 10 ML FLUSH IV FLUSH PRN (11:30)
[2016-07-19] MEDS: RESP: ALBUTEROL 2.5 MG/IPRATROPIUM 0.5 MG NEB (PRN) NEB (12:02)
--- NOTE | 2016-07-19 12:09 | RADRPT ---
EXAM DATE/TIME: 07/19/2016 11:30 [place] COMPARISON: CHEST SINGLE AP, July 18, 2016, 10:42. INDICATIONS : Central line placement. MEDICAL HISTORY : None. SURGICAL HISTORY : Thoracentesis. ENCOUNTER: Initial ACUITY: 1 day PAIN SCORE: Non-responsive. LOCATION: Bilateral chest FINDINGS: The ET tube is 1 cm above the naldo. This could be pulled back 2-3 cm. There is a right internal jug ular central line in place with the tip overlying the SVC. A pneumothorax is not seen. The heart size is within normal limits. There is diffuse next interstitial and alveolar consolidation being worse a t the bases and the left upper lung. This pattern is stable. There does appear the pleural fluid seen over the apices. CONCLUSION: 1. New right internal jugular central line in good position. 2. The ET tube remains just above the naldo. It could be pulled back 2-3 cm. 3. Diffuse pulmonary process likely representing diffuse pulmonary edema, diffuse infection, or ARDS. Qasim Phillips MD on July 19, 2016 at 12:04 Board Certified Radiologist. This report was verified electronically.
--- NOTE | 2016-07-19 12:13 | PD.PROCEDR ---
Central Line Procedure REASON FOR PROCEDURE Central venous access PROCEDURE PERFORMED Central line placement:Right IJ vascath CONSENT Informed consent for procedure was obtained . The risks and benefits of the procedure were discussed to include but limited to bleeding, clot formation, infection, and even . ANESTHESIA Local injection of 1% Lidocaine DESCRIPTION OF THE PROCEDURE The patient was placed in supine, mild Trendelenburg position. The area was exposed and cleansed with ChloraPrep, times two. Large sterile drape was used to cover the patient, with the site exposed, under sterile conditions including cap, face mask, sterile gown, and sterile gloves. On single attempt, the introducer needle was inserted with negative pressure in syringe and venous flash was obtained. The guide wire was then advanced without any restriction and the needle was removed. The dilator was used without any complications. Using Seldinger technique the [ ] catheter was advanced over the guide wire to a depth of [ ] centimeters. The guide wire was removed. All ports were aspirated with dark venous blood return and flushed easily with sterile saline. All ports were capped. Antibiotic disc was placed around central line at puncture site. The central line was secured to the skin with two interrupted 2.0 silk sutures. The area was bandaged with sterile see-through central line bandage. RADIOLOGICAL DATA Ultrasound guidance was used to locate right IJ vein. CXR ordered to verify line placement COMPLICATIONS: No apparent complications ESTIMATED BLOOD LOSS: Less than 1 cc. Thad Mccall MD July 19, 2016 12:13
[2016-07-19 13:21] LABS: REVIEW FLAG FINAL
[2016-07-19] MEDS: GENTAMICIN SULFATE (DIALYSIS USE ONLY) 20 MG/2 ML VIAL IV PRN (14:17)
[2016-07-19] MEDS: EPOETIN ALFA 10,000 UNITS/ML VIAL IV PRN (14:17)
[2016-07-19] MEDS: HEPARIN SODIUM - IV 10,000 UNITS/10 ML VIAL PRN (14:18)
[2016-07-19 16:15] LABS: INTERNATIONAL NORMALIZED RATIO 1.4 RATIO; PROTHROMBIN TIME - PATIENT 15.6 SEC (9.8-11.6)
[2016-07-19] MEDS: cefTRIAXone INJ 1,000 MG in SODIUM CHLORIDE 0.9% INJ 100 ML IV SCH (18:10)
--- NOTE | 2016-07-19 19:07 | HHI.PR ---
Subjective Remarks 31 YOWFw ith VDRF,Lung infilt,Pl effusion Had bronch Reintubated 07/14 On ACV Sedated with Fentanyl Worsening renal functions had Vascath placed Objective Vital Signs Vital Signs Date Time Temp Pulse Resp B/P Pulse Ox O2 Delivery O2 Flow Rate FiO2 07/19/16 16:00 98.5 132 23 105/50 96 07/19/16 16:00 132 07/19/16 16:00 60 07/19/16 14:00 120 07/19/16 12:15 98 70 07/19/16 12:00 80 07/19/16 12:00 119 07/19/16 12:00 98.5 119 20 105/50 99 07/19/16 11:30 100 07/19/16 10:00 123 07/19/16 09:30 98.9 125 25 102/52 95 07/19/16 09:00 122 26 94 07/19/16 08:15 93 45 07/19/16 08:00 98.9 130 25 95 07/19/16 08:00 130 07/19/16 08:00 45 07/19/16 06:15 98.9 131 17 93/52 93 07/19/16 06:00 128 07/19/16 06:00 99.1 129 24 93/44 94 07/19/16 04:10 95 45 07/19/16 04:00 138 07/19/16 04:00 98.1 138 25 93/46 95 07/19/16 04:00 45 07/19/16 04:00 98.5 07/19/16 04:00 138 07/19/16 02:00 125 07/19/16 01:09 95 45 07/19/16 00:00 99.3 123 23 94/46 96 07/19/16 00:00 45 07/19/16 00:00 123 07/18/16 22:42 94 45 07/18/16 22:00 124 07/18/16 20:08 95 45 07/18/16 20:00 45 07/18/16 20:00 125 07/18/16 20:00 98.8 125 23 96/50 94 I/O 07/18/16 07/18/16 07/18/16 07/19/16 07/19/16 07/19/16 07:00 15:00 23:00 07:00 15:00 23:00 Intake Total 554 ml 801 ml 812 ml 485 ml 1740 ml Output Total 50 ml 35 ml 20 ml 50 ml 15 ml 2500 ml Balance 504 ml 766 ml 792 ml 435 ml 1725 ml -2500 ml Intake Oral 0 ml 0 ml 0 ml IV Total 221 ml 319 ml 351 ml 213 ml 1310 ml Tube Feeding 183 ml 362 ml 361 ml 172 ml 330 ml Other 150 ml 120 ml 100 ml 100 ml 100 ml Output Urine Total 50 ml 35 ml 20 ml 50 ml 15 ml Hemodialysis 2500 ml # Bowel Movements 2 0 2 0 Result Diagram: 07/19/16 1255 07/19/16 0359 Objective Remarks GENERAL: MBMN WF with RF, extubated on BIPAP SKIN: Warm and dry. HEAD: Normocephalic. EYES: No scleral icterus. No injection or drainage. NECK: Supple, trachea midline. No JVD or lymphadenopathy. CARDIOVASCULAR: Regular rate and rhythm without murmurs, gallops, or rubs. RESPIRATORY: Breath sounds equal bilaterally. No accessory muscle use. Bilat rales GASTROINTESTINAL: Abdomen soft, non-tender, nondistended. MUSCULOSKELETAL: No cyanosis, ++ edema. BACK: Nontender without obvious deformity. No CVA tenderness. A/P Assessment and Plan VDRF, Reintubated 07/15 Bilat lung infilt Pleural effusion Ascitis hypoxia PLAN: vent support Diurease Cont Abx per ID Wean 02 to keep sat >90% IV Solumedrol monitor renal functions. Sedation with Fentanyl. monitor renal Functions HD today VIANNEY Gomes If lung infilterates don't improve after HD, may need lung bx. Tomi Mckeon MD July 19, 2016 19:07
[2016-07-19] MEDS: fentaNYL 2,500 MCG/NS 250 ML IV SCH (20:47)
[2016-07-20] VITALS (22 sets, daily range): BP systolic 90–105; BP diastolic 44–51; PULSE 112–125; RESP 14–25; TEMP 98.4–99.4; O2SAT 93–100
[2016-07-20] MEDS: INSULIN NovoLIN REGULAR SUPPLEMENTAL SCALE SQ SCH ×4 (03:00→21:48)
[2016-07-20] MEDS: methylPREDNISolone SOD SUCC 40 MG/1 ML VIAL IV PUSH SCH ×2 (05:26→17:18)
[2016-07-20] MEDS: DOCUSATE SODIUM 100 MG CAP PO SCH ×2 (05:27→14:35)
[2016-07-20] MEDS: PENTOXIFYLLINE 400 MG CONTROLLED RELEASE TAB PO SCH ×3 (05:27→21:45)
[2016-07-20] MEDS: PROPOFOL 1000 MG/100 ML INJ 100 ML IV SCH ×2 (05:28→17:18)
[2016-07-20 06:54] LABS: AUTOMATED NEUTROPHIL # 27.8 TH/MM3 (1.8-7.7); BASOPHIL # 0.1 TH/MM3 (0-0.2); BASOPHIL % 0.2 % (0.0-2.0); EOSINOPHIL # 0.1 TH/MM3 (0-0.4); EOSINOPHIL % 0.2 % (0.0-4.0); HEMATOCRIT 23.8 % (35.0-46.0); LYMPH % 3.1 % (9.0-44.0); LYMPHOCYTE # 0.9 TH/MM3 (1.0-4.8); MEAN CELL VOLUME 93.8 FL (80.0-100.0); MEAN CORPUSCULAR HEMOGLOBIN 30.4 PG (27.0-34.0); MEAN CORPUSCULAR HGB CONC 32.4 % (32.0-36.0); MONO % 3.1 % (0.0-8.0); NEUT % 93.4 % (16.0-70.0); PLATELET COUNT 65 TH/MM3 (150-450); RED BLOOD COUNT 2.53 MIL/MM3 (4.00-5.30); RED CELL DISTRIBUTION WIDTH 19.9 % (11.6-17.2); WHITE BLOOD COUNT 29.8 TH/MM3 (4.0-11.0)
[2016-07-20 07:03] LABS: HEMO FLAGS AUTO DIFF
[2016-07-20 07:11] LABS: ALKALINE PHOSPHATASE 93 U/L (45-117); ALT (GPT) 38 U/L (10-53); ANION GAP 17 MEQ/L (5-15); AST (GOT) 44 U/L (15-37); BICARBONATE 19.2 MEQ/L (21.0-32.0); BLOOD UREA NITROGEN 117 MG/DL (7-18); CHLORIDE 102 MEQ/L (98-107); GLOMERULAR FILTRATION RATE 15 ML/MIN (>89); POTASSIUM 4.2 MEQ/L (3.5-5.1); SODIUM (NA) 138 MEQ/L (136-145); TOTAL BILIRUBIN ADULT 1.5 MG/DL (0.2-1.0)
[2016-07-20] MEDS: CHLORHEXIDINE 0.12% (ORAL KIT) 15 ML CUP MT SCH ×2 (07:31→21:00)
[2016-07-20] MEDS: TIOTROPIUM BROMIDE 18 MCG INH INH SCH (07:31)
[2016-07-20] MEDS: FLUTICASONE PROPIONATE 110 MCG/ACT 12 GM INHALER INH SCH ×2 (07:31→21:00)
[2016-07-20 07:53] LABS: BANDS 7 % (0-6); CORRECTED NUCLEATED RBC 3 /100 WBC (0-0); METAMYELOCYTES 1 % (0-1); MYELOCYTES 1 % (0-0); NEUTROPHIL # MANUAL DIFF 29.2 TH/MM3 (1.8-7.7); PLATELET ESTIMATE SMEAR LOW (NORMAL); PLATELET MORPHOLOGY ENLARGED (NORMAL); POLYS (SEG NEUTROPHILS) 89 % (16-70); SCAN/DIFF FINAL DIFF MANUAL; WBC DIFF SAMPLE 100
[2016-07-20] MEDS: guaiFENesin E.R. 600 MG TAB PO SCH ×2 (08:38→21:44)
[2016-07-20] MEDS: SODIUM CHLORIDE 0.9% FLUSH 10 ML FLUSH IV FLUSH SCH ×2 (08:39→21:00)
[2016-07-20] MEDS: RIFAXIMIN 550 MG TAB PO SCH ×2 (09:00→21:44)
[2016-07-20] MEDS: EPOETIN ALFA 10,000 UNITS/ML VIAL IV PRN (10:51)
[2016-07-20] MEDS: HEPARIN SODIUM - IV 10,000 UNITS/10 ML VIAL PRN (10:52)
[2016-07-20] MEDS: GENTAMICIN SULFATE (DIALYSIS USE ONLY) 20 MG/2 ML VIAL IV PRN (10:52)
--- NOTE | 2016-07-20 11:27 | HHI.NPPN ---
Subjective History of Present Illness 31-year-old with a history of cirrhosis, pneumonia, respiratory failure intubated Objective Data Data 07/19/16 07/20/16 19:00 07:00 Intake Total 1740 ml 1105 ml Output Total 2515 ml 40 ml Balance -775 ml 1065 ml Intake Oral 0 ml 0 ml IV Total 1310 ml 393 ml Tube Feeding 330 ml 512 ml Other 100 ml 200 ml Output Urine Total 15 ml 40 ml Hemodialysis 2500 ml # Bowel Movements 0 3 Vital Signs Date Time Temp Pulse Resp B/P Pulse Ox O2 Delivery O2 Flow Rate FiO2 07/20/16 10:00 122 07/20/16 08:05 98 50 07/20/16 08:00 50 07/20/16 08:00 98.5 117 19 105/51 98 07/20/16 08:00 117 07/20/16 06:00 121 07/20/16 04:08 93 50 07/20/16 04:00 60 07/20/16 04:00 115 07/20/16 04:00 98.4 115 23 97/49 93 07/20/16 02:00 120 07/20/16 01:14 94 50 07/20/16 00:00 98.9 124 25 104/51 93 07/20/16 00:00 45 07/20/16 00:00 124 07/19/16 22:00 117 07/19/16 20:41 93 50 07/19/16 20:00 98.8 120 22 96/46 93 07/19/16 20:00 45 07/19/16 20:00 120 07/19/16 16:00 98.5 132 23 105/50 96 07/19/16 16:00 132 07/19/16 16:00 60 07/19/16 14:00 120 07/19/16 12:15 98 70 07/19/16 12:00 80 07/19/16 12:00 119 07/19/16 12:00 98.5 119 20 105/50 99 07/19/16 11:30 100 -: 07/20/16 0533 07/20/16 0533 Physical Exam General Appearance: Well Developed Eyes Eye Exam: Pupils Equal Neck Neck Exam: Neck Supple Pulmonary Resp Exam: Decreased Bases Cardiology CV Exam: Tachycardia Gastrointestinal/Abdomen GI Exam: Soft, Distended Extremeties Extremities Exam: Pitting Edema, Dependent Edema Assessment/Plan Problem List: (1) Acute renal failure Plan: Patient has liver dysfunction along with that she has pneumonia, she is third spacing and has low albumin on dialysis seen during dialysis 2 L UF (2) Hyperkalemia Plan: resolved (3) Pneumonia Plan: She is on antibiotics and infectious disease is following Patient is on ventilator (4) Ascites Plan: Due to alcoholic hepatitis Problem Qualifiers (1) Acute renal failure: Qualified Code: N17.9 - Acute renal failure, unspecified acute renal failure type (2) Pneumonia: Qualified Code: J18.9 - Pneumonia of both lungs due to infectious organism, unspecified part of lung Eve Tariq MD July 20, 2016 11:27
[2016-07-20] MEDS: PANTOPRAZOLE SODIUM 40 MG VIAL IV PUSH SCH (12:41)
[2016-07-20] MEDS: FOLIC ACID 1 MG TAB PO SCH (12:41)
[2016-07-20] MEDS: AZITHROMYCIN 250 MG TAB PO SCH (12:41)
[2016-07-20] MEDS: THIAMINE HCL 100 MG TAB PO SCH (12:41)
[2016-07-20] MEDS: MULTIVITAMIN TAB PO SCH (12:41)
--- NOTE | 2016-07-20 13:14 | HHI.CCPN ---
Subjective Remarks/Hospital Course The patient is a 31-year-old female with past medical history of ETOH hepatitis , ascites and cirrhosis of the liver with ETOH use who was admitted to [facility] on July 09 for healthcare-associated pneumonia. She had a chest x-ray on July 09 which showed diffuse consolidation and bilateral pleural effusions, likely representing pulmonary edema. The patient was recently discharged from the hospital after she was admitted back on June 10. On her prior admission she had an echocardiogram on June 22 which showed an EF of 50-55%. The patient also had paracentesis performed on June 30 with removal of 1.8 liters of ascitic fluid and she had a thoracentesis performed on the right on June 16 with removal of 800 cc of transudative pleural fluid. The patient was admitted under the hospitalists service and was started on broad -spectrum antibiotics for healthcare-associated pneumonia. A HaliCAT was called for respiratory distress and the patient was given Lasix at approximately 2 o'clock this morning and transferred to [facility]. Critical care medicine was consulted for respiratory distress. Her laboratory data showed worsening leukocytosis with a WBC of 25.7 from 16.2. Her BNP is 529 from 809. Ammonia level less than 10. A repeat chest x-ray showed worsening airspace process. The patient was placed on BiPAP 11/24 with 95% FIO2 and her initial saturation was 98%. When her FIO2 was weaned down she dropped her saturation and initially she refused intubation. She was just given additional Bumex 1 mg IV x1 and Solu-Medrol 80 mg IV push x1. The patient denies any nausea, vomiting or abdominal pain. 07/12 Patient was intubated yesterday for resp failure sedated with Diprivan and Fentanyl. WBC trending down. Afebrile. 07/13 Patient remains intubated and sedated with Diprivan off Fentanyl drip. s/p Right sided thoracentesis yesterday with removal 800ml pleural fluid and CT guided paracentesis with removal 4.3L. 07/14 Patient is intubated with Diprivan and Fentanyl. s/p bronch yesterday by Dr. Mckeon( small mucus plugs removed). Afebrile. 07/15 Patient s/p extubation yesterday. Placed on BIPAP overnight 11/24 with FIO2 65%. Afebrile. 07/16 Patient was reintubated yesterday for resp distress. CXR showed b/l airspace disease. Afebrile. Sedated with Diprivan and Fentanyl. 07/17 Patient is sedated with Fentanyl and intubated. Afebrile. On PRVC/AC with PEEP:10 and FIO2 50%. 07/18 Patient is sedated with Fentanyl and intubated. Renal function continue to worse with Cr: 2.96 from 2.49 with poor UO. 07/19 Patient remains sedated with Diprivan and Fentanyl. She developed ? hemoptysis and hematuria overnight 2units PRBC, 2u FFP ordered. Patient was given Vitamin K 10mg x1 and DDAVP. Hgb 6.2 this morning. Renal function is worsening with Cr: 3.47 from 2.96. On Bumex drip 0.25 mg/hr. Subjective 07/20: Tmax 99.1. No further hemoptysis noted. -2500 cc of hemodialysis yesterday. Tube feeding resume Objective Vital Signs Date Time Temp Pulse Resp B/P Pulse Ox O2 Delivery O2 Flow Rate FiO2 07/20/16 12:00 50 07/20/16 12:00 98.4 121 17 100/49 97 Intake and Output 07/19/16 07/19/16 07/20/16 08:00 16:00 00:00 Intake Total 485 ml 1740 ml 635 ml Output Total 50 ml 2515 ml 15 ml Balance 435 ml -775 ml 620 ml Result Diagram: 07/20/16 0533 07/20/16 0533 Other Results Microbiology Date/Time Procedure Status Source Growth 07/18/16 17:30 Stool Occult Blood (AMADEO) - Final Complete Stool Stool HEMOCCULT POSITIVE Imaging Last Impressions Chest X-Ray 07/19/16 0000 Signed Impressions: Service Date/Time: Tuesday, July 19, 2016 11:30 - CONCLUSION: 1. New right internal jugular central line in good position. 2. The ET tube remains just above the naldo. It could be pulled back 2-3 cm. 3. Diffuse pulmonary process likely representing diffuse pulmonary edema, diffuse infection, or ARDS. Qasim Phillips MD Renal Ultrasound 07/17/16 0000 Signed Impressions: Service Date/Time: Sunday, July 17, 2016 10:58 - CONCLUSION: 1. Normal ultrasound appearance of the kidneys. There is no hydronephrosis. 2. Urinary bladder is not visualized. 3. There is free fluid within the abdomen and pelvis. Qasim Osuna MD Thoracentesis Ultrasound 07/12/16 Signed Impressions: Service Date/Time: Tuesday, July 12, 2016 10:17 - CONCLUSION: Uncomplicated ultrasound guided thoracentesis. Garret Verma MD Cyst Biopsy Asp-Paracentesis US 07/12/16 Signed Impressions: Service Date/Time: Tuesday, July 12, 2016 10:17 - CONCLUSION: Uncomplicated ultrasound guided paracentesis. Garret Verma MD Liver Ultrasound 07/11/16 Signed Impressions: Service Date/Time: Monday, July 11, 2016 10:24 - CONCLUSION: Ascites and pleural effusions. Splenomegaly. Tiny gallstone or gallbladder polyp Qasim Edwards MD Chest CT 07/11/16 Signed Impressions: Service Date/Time: Monday, July 11, 2016 22:37 - CONCLUSION: Bilateral pleural effusions, slight ascites and significant worsening of airspace consolidation in both lungs. Mert Laurent MD Objective Remarks GENERAL: 31-year-old female, appears stated age currently orotracheally intubated SKIN: Warm and dry. No rash HEAD: Normocephalic. EYES: No scleral icterus. No injection or drainage. NECK: Supple, trachea midline. No JVD or lymphadenopathy. Orally intubated CARDIOVASCULAR: The cardiac, RRR. S1, S2 no S4 without murmur rubs. RESPIRATORY: Diffuse coarse crackles appreciated in all lung dean. GASTROINTESTINAL: Abdomen slightly protuberant, nontender. Hypoactive bowel sounds. MUSCULOSKELETAL: 1+ to 2+ bilateral upper and lower extremity peripheral edema. Neuro: Sedated and intubated positive gag. Positive corneal reflex. She moves all 4 extremities spontaneous. A/P Assessment and Plan 1. VDRF 2. Diffuse bilateral airspace disease. 3. Pleural effusions s/p Right sided thoracentesis with removal 800ml pleural fluid 07/12 4. Healthcare-associated pneumonia. 5. Leukocytosis. 6. Anemia, thrombocytopenia 7. Elevated LFTs 8. Cirrhosis of the liver secondary to ETOH use. 9. Hypertension. 10.Recurrent ascites s/p paracentesis performed on June 30. s/p paracentesis on 07/12 with removal 4.3L. 11. ARF Plan Neuro: On Fentanyl/Diprivan infusion for sedation. Daily sedation vacation when appropriate. Continue thiamine, multivitamins and folic acid. on rifaximin and Trental 400 every 8..Ammonia level < 10 Pulm: On PRVC/AC RR 14, TV 500, IT:1.0, PEEP:5, FIO2 45% Continue with vent support keep sat >92% Bronchodilators every 4 hours, solumederol 40mg Q12 ICU vent bundle. s/p CT guided thoracentesis 07/12 with removal 800ml -transudative effusion. Pleural fluid culture- NGTD Pulm is following- Dr. Mckeon s/p bronch 07/13 (small mucus plugs removed ) follow up on BAL results- NGTD. Possible need lung biopsy CV: Monitor HR and BP and maintain MAP >65 mmHg. Echo from June 22 showed an EF of 50-55%. Echo 07/15: EF 55-60%, no RWMA, mod TR. /renal: Monitor renal function, I's and O's, and electrolyte replacement s/p CT guided paracentesis 07/12 with removal 4.3L. Follow up on cultures- NGTD Dr. Tariq. Renal US: No hydronephrosis. -2500 cc with hemodialysis yesterday GI: On Protonix 40 mg IV daily for GI prophylaxis. Tube feeds held overnight( Nepro with goal rate 40ml/hr) GI eval for anemia and Hemoccult positive ID: Continue abx(Rocephin, azithromycin) ID is following. Monitor for signs of infections(Fever and WBC) Strep pneumoniae and Legionella urinary antigen negative. Blood cultures 07/09: NGTD, sputum cx from 07/11: NGTD Follow up on BAL results- NGTD 07/12: Peritoneal and pleural fluid cxs: NGTD Endo: On SSI medium scale with Accu-Chek q.6h. for glycemic control Heme: Monitor CBC, for transfusion 2ynits PRBC, 2u FFP today. Patient reciev Vitamin K 10mg x1 and DDAVP overnight, Check H/H post transfusion., monitor Coags/ Fibrinogen level. GI prophylaxis with Protonix 40 mg daily and DVT prophylaxis with SCDs, heparin subcu held. In light of hemoptysis CCT 30 mins Wang Jacobs MD July 20, 2016 13:14
[2016-07-20 14:01] LABS: BETA HCG QUANT 1 MIU/ML (0-5)
--- NOTE | 2016-07-20 14:18 | HHI.IDPN ---
Subjective Subjective Remarks Notes reviewed D/W RN Started on HD 07/19 had HD again today 07/20 BP ok, not on pressors Awake on the vent Temps ok WBC higher Bronch with yeast Patient had HIV testing 07/02 - negative Antibiotics Zithromax CFTX Lines GOPAL santiago Past Medical History Reviewed Allergies: Coded Allergies: No Known Allergies (Unverified , 07/09/16) Objective . Vital Signs Date Time Temp Pulse Resp B/P Pulse Ox O2 Delivery O2 Flow Rate FiO2 07/20/16 12:00 50 07/20/16 12:00 98.4 121 17 100/49 97 07/20/16 12:00 121 07/20/16 11:16 94 50 07/20/16 11:00 125 23 90/45 94 07/20/16 10:00 121 21 99/48 95 07/20/16 10:00 122 07/20/16 09:00 117 20 105/51 98 07/20/16 08:05 98 50 07/20/16 08:00 50 07/20/16 08:00 98.5 117 19 105/51 98 07/20/16 08:00 117 07/20/16 07:00 119 19 100/49 98 07/20/16 06:00 121 07/20/16 04:08 93 50 07/20/16 04:00 60 07/20/16 04:00 115 07/20/16 04:00 98.4 115 23 97/49 93 07/20/16 02:00 120 07/20/16 01:14 94 50 07/20/16 00:00 98.9 124 25 104/51 93 07/20/16 00:00 45 07/20/16 00:00 124 07/19/16 22:00 117 07/19/16 20:41 93 50 07/19/16 20:00 98.8 120 22 96/46 93 07/19/16 20:00 45 07/19/16 20:00 120 07/19/16 16:00 98.5 132 23 105/50 96 07/19/16 16:00 132 07/19/16 16:00 60 07/19/16 07/19/16 07/20/16 15:00 23:00 07:00 Intake Total 1740 ml 635 ml 470 ml Output Total 15 ml 2515 ml 25 ml Balance 1725 ml -1880 ml 445 ml Intake Oral 0 ml 0 ml 0 ml IV Total 1310 ml 241 ml 152 ml Tube Feeding 330 ml 294 ml 218 ml Other 100 ml 100 ml 100 ml Output Urine Total 15 ml 15 ml 25 ml Hemodialysis 2500 ml # Bowel Movements 0 3 . Laboratory Tests Test 07/19/16 07/19/16 07/20/16 03:59 12:55 05:33 White Blood Count 19.2 TH/MM3 29.8 TH/MM3 Red Blood Count 1.94 MIL/MM3 2.53 MIL/MM3 Hemoglobin 6.2 GM/DL 7.8 GM/DL 7.7 GM/DL Hematocrit 20.0 % 24.0 % 23.8 % Mean Corpuscular Volume 103.2 FL 93.8 FL Mean Corpuscular Hemoglobin 32.2 PG 30.4 PG Mean Corpuscular Hemoglobin 31.2 % 32.4 % Concent Red Cell Distribution Width 15.9 % 19.9 % Platelet Count 87 TH/MM3 65 TH/MM3 Mean Platelet Volume 11.5 FL 11.4 FL Neutrophils (%) (Auto) 91.8 % 93.4 % Lymphocytes (%) (Auto) 1.6 % 3.1 % Monocytes (%) (Auto) 6.3 % 3.1 % Eosinophils (%) (Auto) 0.1 % 0.2 % Basophils (%) (Auto) 0.2 % 0.2 % Neutrophils # (Auto) 17.6 TH/MM3 27.8 TH/MM3 Lymphocytes # (Auto) 0.3 TH/MM3 0.9 TH/MM3 Monocytes # (Auto) 1.2 TH/MM3 0.9 TH/MM3 Eosinophils # (Auto) 0.0 TH/MM3 0.1 TH/MM3 Basophils # (Auto) 0.0 TH/MM3 0.1 TH/MM3 CBC Comment AUTO DIFF AUTO DIFF Differential Comment AUTO DIFF FINAL DIFF CONFIRMED MANUAL Platelet Estimate LOW LOW Platelet Morphology Comment NORMAL ENLARGED Differential Total Cells 100 Counted Neutrophils % (Manual) 89 % Band Neutrophils % 7 % Lymphocytes % 1 % Monocytes % 1 % Neutrophils # (Manual) 29.2 TH/MM3 Metamyelocytes 1 % Myelocytes 1 % Nucleated Red Blood Cells 3 /100 WBC Laboratory Tests Test 07/19/16 07/20/16 03:59 05:33 Sodium Level 138 MEQ/L 138 MEQ/L Potassium Level 5.1 MEQ/L 4.2 MEQ/L Chloride Level 105 MEQ/L 102 MEQ/L Carbon Dioxide Level 16.8 MEQ/L 19.2 MEQ/L Anion Gap 16 MEQ/L 17 MEQ/L Blood Urea Nitrogen 127 MG/DL 117 MG/DL Creatinine 3.47 MG/DL 3.44 MG/DL Estimat Glomerular Filtration 15 ML/MIN 15 ML/MIN Rate Random Glucose 252 MG/DL 273 MG/DL Calcium Level 8.3 MG/DL 9.0 MG/DL Phosphorus Level 5.4 MG/DL Total Bilirubin 1.5 MG/DL Aspartate Amino Transf 44 U/L (AST/SGOT) Alanine Aminotransferase 38 U/L (ALT/SGPT) Alkaline Phosphatase 93 U/L Total Protein 5.4 GM/DL Albumin 3.1 GM/DL Human Chorionic Gonadotropin, 1 MIU/ML Quant Microbiology Date/Time Procedure Status Source Growth 07/18/16 17:30 Stool Occult Blood (AMADEO) - Final Complete Stool Stool HEMOCCULT POSITIVE Imaging Last Impressions Chest X-Ray 07/18/16 0000 Signed Impressions: Service Date/Time: Monday, July 18, 2016 10:42 - CONCLUSION: Stable chest x- ray with relatively diffuse bilateral airspace consolidation, left greater than right. Qasim Osuna MD Renal Ultrasound 07/17/16 0000 Signed Impressions: Service Date/Time: Sunday, July 17, 2016 10:58 - CONCLUSION: 1. Normal ultrasound appearance of the kidneys. There is no hydronephrosis. 2. Urinary bladder is not visualized. 3. There is free fluid within the abdomen and pelvis. Qasim Osuna MD Thoracentesis Ultrasound 07/12/16 0000 Signed Impressions: Service Date/Time: Tuesday, July 12, 2016 10:17 - CONCLUSION: Uncomplicated ultrasound guided thoracentesis. Garret Verma MD Cyst Biopsy Asp-Paracentesis US 07/12/16 0000 Signed Impressions: Service Date/Time: Tuesday, July 12, 2016 10:17 - CONCLUSION: Uncomplicated ultrasound guided paracentesis. Garret Verma MD Liver Ultrasound 07/11/16 0000 Signed Impressions: Service Date/Time: Monday, July 11, 2016 10:24 - CONCLUSION: Ascites and pleural effusions. Splenomegaly. Tiny gallstone or gallbladder polyp Qasim Edwards MD Chest CT 07/11/16 0000 Signed Impressions: Service Date/Time: Monday, July 11, 2016 22:37 - CONCLUSION: Bilateral pleural effusions, slight ascites and significant worsening of airspace consolidation in both lungs. Mert Laurent MD Physical Exam GENERAL: on the vent, not in distress. SKIN: Warm and dry. Has jaundice. Has spider angiomata in her upper chest HEAD: Atraumatic. Normocephalic. No temporal wasting, or tenderness. EYES: [place] conjunctiva. No petechia or hemorrhage. Has scleral icterus. No injection or drainage. EARS, NOSE AND THROAT: Nose without bleeding or purulent nasal discharge. No sinus tenderness. She is orally intubated. Clear oral secretions CARDIOVASCULAR: Regular rate and rhythm. No murmurs, rubs or gallops heard RESPIRATORY: Diffuse rhonchi ABDOMEN: Soft, mildly distended, bowel sounds present and normoactive, no tenderness, no guarding or rebound. . EXTREMITIES: No clubbing, or cyanosis. Has bilateral at least 3+ pitting edema. Both feet well perfused and warm. NEUROLOGICAL: lethargic : Arevalo in place, minimal urine in arevalo bag LINE: No evidence of infection Assessment & Plan Remarks IMPRESSION Bilateral infiltrates, worsening in very acute progression, likely more inflammatory, ?ARDS, ?other inflammatory - her CXR has changed very quickly - sputum negative - pneumonia vs pneumonitis 2/2 non infectious etiology Respiratory failure, reintubated 07/15 ETOH hepatitis Leukocytosis, up, prob reactive ARF , no e/o intertitial nephritis (neg urine eos) Diarrhea, abx associated RECOMMENDATION Follow C/S Stop Rocephin On Zithromax - if same, will D/C tomorrow Follow CBC Open lung biopsy if no improvement and still no diagnosis - once feasible from resp standpoint On steroids D/W Whit Magaña MD July 20, 2016 14:18
--- NOTE | 2016-07-20 14:36 | RADRPT ---
EXAM DATE/TIME: 07/20/2016 13:24 [place] COMPARISON: CHEST SINGLE AP, July 19, 2016, 11:30. INDICATIONS : Short of breath. MEDICAL HISTORY : None. SURGICAL HISTORY : None. ENCOUNTER: Initial ACUITY: 1 month PAIN SCORE: Non-responsive. LOCATION: Bilateral chest FINDINGS: Dialysis catheter, ET tube and nasogastric tube are in good position. Moderate interstitial edema is present, increasing in the interval. CONCLUSION: Increasing interstitial edema. Harish Chaudhary MD FACR on July 20, 2016 at 14:13 Board Certified Radiologist. This report was verified electronically.
[2016-07-20] MEDS: RESP: ALBUTEROL 2.5 MG/IPRATROPIUM 0.5 MG NEB (SCH) NEB ×2 (16:19→20:11)
[2016-07-20] MEDS: fentaNYL 2,500 MCG/NS 250 ML IV SCH (17:18)
--- NOTE | 2016-07-20 20:21 | HHI.PR ---
Subjective Remarks 31 YOWFw ith VDRF,Lung infilt,Pl effusion Had bronch Reintubated 07/14 On ACV Sedated with Fentanyl Worsening renal functions had HD Started back on TF CXR slight worsening infilt Objective Vital Signs Vital Signs Date Time Temp Pulse Resp B/P Pulse Ox O2 Delivery O2 Flow Rate FiO2 07/20/16 18:00 115 07/20/16 16:19 97 50 07/20/16 16:00 119 07/20/16 16:00 99.0 117 16 91/44 98 07/20/16 16:00 50 07/20/16 14:00 121 07/20/16 12:00 50 07/20/16 12:00 98.4 121 17 100/49 97 07/20/16 12:00 121 07/20/16 11:16 94 50 07/20/16 11:00 125 23 90/45 94 07/20/16 10:00 121 21 99/48 95 07/20/16 10:00 122 07/20/16 09:00 117 20 105/51 98 07/20/16 08:05 98 50 07/20/16 08:00 50 07/20/16 08:00 98.5 117 19 105/51 98 07/20/16 08:00 117 07/20/16 07:00 119 19 100/49 98 07/20/16 06:00 121 07/20/16 04:08 93 50 07/20/16 04:00 60 07/20/16 04:00 115 07/20/16 04:00 98.4 115 23 97/49 93 07/20/16 02:00 120 07/20/16 01:14 94 50 07/20/16 00:00 98.9 124 25 104/51 93 07/20/16 00:00 45 07/20/16 00:00 124 07/19/16 22:00 117 07/19/16 20:41 93 50 I/O 07/19/16 07/19/16 07/19/16 07/20/16 07/20/16 07/20/16 07:00 15:00 23:00 07:00 15:00 23:00 Intake Total 485 ml 1740 ml 635 ml 470 ml 514 ml Output Total 50 ml 15 ml 2515 ml 25 ml 2050 ml Balance 435 ml 1725 ml -1880 ml 445 ml -1536 ml Intake Oral 0 ml 0 ml 0 ml 0 ml IV Total 213 ml 1310 ml 241 ml 152 ml 208 ml Tube Feeding 172 ml 330 ml 294 ml 218 ml 306 ml Other 100 ml 100 ml 100 ml 100 ml Output Urine Total 50 ml 15 ml 15 ml 25 ml 50 ml Hemodialysis 2500 ml 2000 ml # Bowel Movements 2 0 3 1 Result Diagram: 07/20/1653207/20/16532 Objective Remarks GENERAL: MBMN WF with RF, extubated on BIPAP SKIN: Warm and dry. HEAD: Normocephalic. EYES: No scleral icterus. No injection or drainage. NECK: Supple, trachea midline. No JVD or lymphadenopathy. CARDIOVASCULAR: Regular rate and rhythm without murmurs, gallops, or rubs. RESPIRATORY: Breath sounds equal bilaterally. No accessory muscle use. Bilat rales GASTROINTESTINAL: Abdomen soft, non-tender, nondistended. MUSCULOSKELETAL: No cyanosis, ++ edema. BACK: Nontender without obvious deformity. No CVA tenderness. A/P Assessment and Plan VDRF, Reintubated 07/15 Bilat lung infilt Pleural effusion Ascitis hypoxia PLAN: vent support Diurease Cont Abx per ID Wean 02 to keep sat >90% IV Solumedrol monitor renal functions. Sedation with Fentanyl. monitor renal Functions If lung infilterates don't improve after HD, may need lung bx. Tomi Mckeon MD July 20, 2016 20:21
[2016-07-21] VITALS (75 sets, daily range): BP systolic 86–157; BP diastolic 42–101; PULSE 109–145; RESP 14–22; TEMP 98.9–99.5; O2SAT 93–100
[2016-07-21] MEDS: RESP: ALBUTEROL 2.5 MG/IPRATROPIUM 0.5 MG NEB (SCH) NEB ×7 (00:15→23:29)
[2016-07-21] MEDS: PROPOFOL 1000 MG/100 ML INJ 100 ML IV SCH ×6 (01:04→23:17)
[2016-07-21] MEDS: fentaNYL 2,500 MCG/NS 250 ML IV SCH ×3 (03:34→23:18)
[2016-07-21] MEDS: INSULIN NovoLIN REGULAR SUPPLEMENTAL SCALE SQ SCH ×4 (03:35→22:31)
[2016-07-21] MEDS: DOCUSATE SODIUM 100 MG CAP PO SCH ×2 (04:22→17:15)
[2016-07-21 05:01] LABS: BASOPHIL # 0.1 TH/MM3 (0-0.2); BASOPHIL % 0.3 % (0.0-2.0); EOSINOPHIL % 0.2 % (0.0-4.0); LYMPHOCYTE # 1.2 TH/MM3 (1.0-4.8); MEAN CELL VOLUME 94.7 FL (80.0-100.0); MEAN CORPUSCULAR HEMOGLOBIN 30.7 PG (27.0-34.0); MEAN CORPUSCULAR HGB CONC 32.4 % (32.0-36.0); NEUT % 93.5 % (16.0-70.0); PLATELET COUNT 57 TH/MM3 (150-450); RED BLOOD COUNT 2.17 MIL/MM3 (4.00-5.30); RED CELL DISTRIBUTION WIDTH 19.4 % (11.6-17.2)
[2016-07-21 05:13] LABS: HEMO FLAGS AUTO DIFF
[2016-07-21 05:16] LABS: HEMATOCRIT 20.5 % (35.0-46.0)
[2016-07-21] MEDS: methylPREDNISolone SOD SUCC 40 MG/1 ML VIAL IV PUSH SCH ×2 (05:25→17:37)
[2016-07-21] MEDS: PENTOXIFYLLINE 400 MG CONTROLLED RELEASE TAB PO SCH ×2 (05:25→13:25)
[2016-07-21 05:33] LABS: BICARBONATE 24.6 MEQ/L (21.0-32.0)
[2016-07-21 06:55] LABS: BANDS 16 % (0-6); CORRECTED NUCLEATED RBC 2 /100 WBC (0-0); METAMYELOCYTES 1 % (0-1); MYELOCYTES 4 % (0-0); NEUTROPHIL # MANUAL DIFF 27.9 TH/MM3 (1.8-7.7); PLATELET ESTIMATE SMEAR LOW (NORMAL); PLATELET MORPHOLOGY ENLARGED (NORMAL); POLYS (SEG NEUTROPHILS) 69 % (16-70); SCAN/DIFF FINAL DIFF MANUAL; WBC DIFF SAMPLE 100
[2016-07-21] MEDS: PANTOPRAZOLE SODIUM 40 MG VIAL IV PUSH SCH ×2 (08:11→22:32)
[2016-07-21] MEDS: CHLORHEXIDINE 0.12% (ORAL KIT) 15 ML CUP MT SCH ×2 (08:11→22:33)
[2016-07-21] MEDS: RIFAXIMIN 550 MG TAB PO SCH ×2 (08:11→22:32)
[2016-07-21] MEDS: TIOTROPIUM BROMIDE 18 MCG INH INH SCH (08:11)
[2016-07-21] MEDS: FLUTICASONE PROPIONATE 110 MCG/ACT 12 GM INHALER INH SCH ×3 (08:11→23:42)
[2016-07-21] MEDS: SODIUM CHLORIDE 0.9% FLUSH 10 ML FLUSH IV FLUSH SCH ×2 (08:11→22:32)
[2016-07-21] MEDS: AZITHROMYCIN 250 MG TAB PO SCH (08:11)
[2016-07-21] MEDS: THIAMINE HCL 100 MG TAB PO SCH (08:12)
[2016-07-21] MEDS: MULTIVITAMIN TAB PO SCH (08:12)
[2016-07-21] MEDS: FOLIC ACID 1 MG TAB PO SCH (08:14)
[2016-07-21] MEDS: guaiFENesin E.R. 600 MG TAB PO SCH ×2 (08:14→22:31)
--- NOTE | 2016-07-21 10:59 | HHI.NPPN ---
Subjective History of Present Illness 31-year-old with a history of cirrhosis, pneumonia, respiratory failure intubated Objective Data Data 07/20/16 07/21/16 19:00 07:00 Intake Total 514 ml 1060 ml Output Total 2050 ml 280 ml Balance -1536 ml 780 ml IV Total 208 ml 582 ml Tube Feeding 306 ml 478 ml Output Urine Total 50 ml 30 ml Stool Total 250 ml Hemodialysis 2000 ml # Bowel Movements 1 1 Vital Signs Date Time Temp Pulse Resp B/P Pulse Ox O2 Delivery O2 Flow Rate FiO2 07/21/16 10:00 134 07/21/16 08:49 96 45 07/21/16 08:45 143 19 96/47 96 07/21/16 08:30 145 18 100/49 95 07/21/16 08:15 131 16 96/46 98 07/21/16 08:00 132 07/21/16 08:00 99.0 132 15 94/45 98 07/21/16 08:00 45 07/21/16 07:45 125 16 95/47 98 07/21/16 07:30 126 15 96/47 99 07/21/16 07:15 124 18 95/46 100 07/21/16 07:00 123 14 94/46 99 07/21/16 06:45 122 15 95/47 99 07/21/16 06:30 120 14 97/49 98 07/21/16 06:15 119 14 93/45 98 07/21/16 06:00 119 16 94/46 98 07/21/16 06:00 119 07/21/16 05:45 119 14 91/43 98 07/21/16 05:30 118 14 89/44 99 07/21/16 05:15 118 14 91/43 98 07/21/16 05:00 117 14 89/43 98 07/21/16 04:45 113 14 92/43 99 07/21/16 04:30 109 14 93/45 98 07/21/16 04:20 99 45 07/21/16 04:15 111 14 91/44 98 07/21/16 04:00 111 07/21/16 04:00 50 07/21/16 04:00 111 14 92/45 98 07/21/16 04:00 98.9 111 14 92/45 98 07/21/16 02:00 121 07/21/16 00:15 97 45 07/21/16 00:00 119 07/21/16 00:00 50 07/21/16 00:00 99.2 119 14 89/44 98 07/20/16 22:41 100 45 07/20/16 22:00 122 07/20/16 20:08 98 50 07/20/16 20:00 50 07/20/16 20:00 99.4 112 14 97/47 98 07/20/16 20:00 112 07/20/16 18:00 115 07/20/16 16:19 97 50 07/20/16 16:00 119 07/20/16 16:00 99.0 117 16 91/44 98 07/20/16 16:00 50 07/20/16 14:00 121 07/20/16 12:00 50 07/20/16 12:00 98.4 121 17 100/49 97 07/20/16 12:00 121 07/20/16 11:16 94 50 07/20/16 11:00 125 23 90/45 94 -: 07/21/16 0423 07/21/16 0423 Physical Exam General Appearance: Well Developed Eyes Eye Exam: Pupils Equal Neck Neck Exam: Neck Supple Pulmonary Resp Exam: Decreased Bases Cardiology CV Exam: Tachycardia Gastrointestinal/Abdomen GI Exam: Soft, Distended Extremeties Extremities Exam: Pitting Edema, Dependent Edema Assessment/Plan Problem List: (1) Acute renal failure Plan: Patient has liver dysfunction along with that she has pneumonia, she is third spacing and has low albumin on dialysis she is getting PRBC still has edema will do dialysis today ARDS FiO2 45% (2) Hyperkalemia Plan: resolved (3) Pneumonia Plan: She is on antibiotics and infectious disease is following Patient is on ventilator (4) Ascites Plan: Due to alcoholic hepatitis Problem Qualifiers (1) Acute renal failure: Qualified Code: N17.9 - Acute renal failure, unspecified acute renal failure type (2) Pneumonia: Qualified Code: J18.9 - Pneumonia of both lungs due to infectious organism, unspecified part of lung Eve Tariq MD Jul 21, 2016 10:59
--- NOTE | 2016-07-21 13:20 | HHI.CCPN ---
Subjective Remarks/Hospital Course The patient is a 31-year-old female with past medical history of ETOH hepatitis , ascites and cirrhosis of the liver with ETOH use who was admitted to [facility] on July 09 for healthcare-associated pneumonia. She had a chest x-ray on July 09 which showed diffuse consolidation and bilateral pleural effusions, likely representing pulmonary edema. The patient was recently discharged from the hospital after she was admitted back on June 10. On her prior admission she had an echocardiogram on June 22 which showed an EF of 50-55%. The patient also had paracentesis performed on June 30 with removal of 1.8 liters of ascitic fluid and she had a thoracentesis performed on the right on June 16 with removal of 800 cc of transudative pleural fluid. The patient was admitted under the hospitalists service and was started on broad -spectrum antibiotics for healthcare-associated pneumonia. A [facility]CAT was called for respiratory distress and the patient was given Lasix at approximately 2 o'clock this morning and transferred to [facility]. Critical care medicine was consulted for respiratory distress. Her laboratory data showed worsening leukocytosis with a WBC of 25.7 from 16.2. Her BNP is 529 from 809. Ammonia level less than 10. A repeat chest x-ray showed worsening airspace process. The patient was placed on BiPAP 11/24 with 95% FIO2 and her initial saturation was 98%. When her FIO2 was weaned down she dropped her saturation and initially she refused intubation. She was just given additional Bumex 1 mg IV x1 and Solu-Medrol 80 mg IV push x1. The patient denies any nausea, vomiting or abdominal pain. 07/12 Patient was intubated yesterday for resp failure sedated with Diprivan and Fentanyl. WBC trending down. Afebrile. 07/13 Patient remains intubated and sedated with Diprivan off Fentanyl drip. s/p Right sided thoracentesis yesterday with removal 800ml pleural fluid and CT guided paracentesis with removal 4.3L. 07/14 Patient is intubated with Diprivan and Fentanyl. s/p bronch yesterday by Dr. Mckeon( small mucus plugs removed). Afebrile. 07/15 Patient s/p extubation yesterday. Placed on BIPAP overnight 11/24 with FIO2 65%. Afebrile. 07/16 Patient was reintubated yesterday for resp distress. CXR showed b/l airspace disease. Afebrile. Sedated with Diprivan and Fentanyl. 07/17 Patient is sedated with Fentanyl and intubated. Afebrile. On PRVC/AC with PEEP:10 and FIO2 50%. 07/18 Patient is sedated with Fentanyl and intubated. Renal function continue to worse with Cr: 2.96 from 2.49 with poor UO. 07/19 Patient remains sedated with Diprivan and Fentanyl. She developed ? hemoptysis and hematuria overnight 2units PRBC, 2u FFP ordered. Patient was given Vitamin K 10mg x1 and DDAVP. Hgb 6.2 this morning. Renal function is worsening with Cr: 3.47 from 2.96. On Bumex drip 0.25 mg/hr. 07/20: Tmax 99.1. No further hemoptysis noted. -2500 cc of hemodialysis yesterday. Tube feeding resume Subjective 07/21: Tmax 99.5. Hemoglobin decreased to 6.7. Transfusing 2 units and plan for hemodialysis today. Remains tachycardic with borderline systolic blood pressure. Objective Vital Signs Date Time Temp Pulse Resp B/P Pulse Ox O2 Delivery O2 Flow Rate FiO2 07/21/16 12:10 134 16 90/44 96 07/21/16 12:00 99.5 07/21/16 12:00 45 Intake and Output 07/20/16 07/20/16 07/20/16 07:59 15:59 23:59 Intake Total 470 ml 514 ml 583 ml Output Total 25 ml 2050 ml 20 ml Balance 445 ml -1536 ml 563 ml Result Diagram: 07/21/16 0423 07/21/16 0423 Other Results Microbiology Date/Time Procedure Status Source Growth 07/18/16 17:30 Stool Occult Blood ([facility]) - Final Complete Stool Stool HEMOCCULT POSITIVE Imaging Last Impressions Chest X-Ray 07/20/16 0000 Signed Impressions: Service Date/Time: Wednesday, July 20, 2016 13:24 - CONCLUSION: Increasing interstitial edema. Harish Chaudhary MD [facility] Renal Ultrasound 07/17/16 0000 Signed Impressions: Service Date/Time: Sunday, July 17, 2016 10:58 - CONCLUSION: 1. Normal ultrasound appearance of the kidneys. There is no hydronephrosis. 2. Urinary bladder is not visualized. 3. There is free fluid within the abdomen and pelvis. Qasim Osuna MD Thoracentesis Ultrasound 07/12/16 Signed Impressions: Service Date/Time: Tuesday, July 12, 2016 10:17 - CONCLUSION: Uncomplicated ultrasound guided thoracentesis. Garret Verma MD Cyst Biopsy Asp-Paracentesis US 07/12/16 Signed Impressions: Service Date/Time: Tuesday, July 12, 2016 10:17 - CONCLUSION: Uncomplicated ultrasound guided paracentesis. Garret Verma MD Liver Ultrasound 07/11/16 Signed Impressions: Service Date/Time: Monday, July 11, 2016 10:24 - CONCLUSION: Ascites and pleural effusions. Splenomegaly. Tiny gallstone or gallbladder polyp Qasim Edwards MD Chest CT 07/11/16 Signed Impressions: Service Date/Time: Monday, July 11, 2016 22:37 - CONCLUSION: Bilateral pleural effusions, slight ascites and significant worsening of airspace consolidation in both lungs. Mert Laurent MD Objective Remarks GENERAL: 31-year-old female, appears stated age currently orotracheally intubated SKIN: Warm and dry. No rash HEAD: Normocephalic. EYES: No scleral icterus. No injection or drainage. NECK: Supple, trachea midline. No JVD or lymphadenopathy. Orally intubated CARDIOVASCULAR: The cardiac, RRR. S1, S2 no S4 without murmur rubs. RESPIRATORY: Diffuse coarse crackles appreciated in all lung dean. GASTROINTESTINAL: Abdomen slightly protuberant, nontender. Hypoactive bowel sounds. MUSCULOSKELETAL: 1+ to 2+ bilateral upper and lower extremity peripheral edema. Neuro: Sedated and intubated positive gag. Positive corneal reflex. She moves all 4 extremities spontaneous. A/P Assessment and Plan 1. VDRF 2. Diffuse bilateral airspace disease. 3. Pleural effusions s/p Right sided thoracentesis with removal 800ml pleural fluid 07/12 4. Healthcare-associated pneumonia. 5. Leukocytosis. 6. Anemia, thrombocytopenia 7. Elevated LFTs 8. Cirrhosis of the liver secondary to ETOH use. 9. Hypertension. 10.Recurrent ascites s/p paracentesis performed on June 30. s/p paracentesis on 07/12 with removal 4.3L. 11. ARF Plan Neuro: On Fentanyl/Diprivan infusion for sedation. Daily sedation vacation when appropriate. Continue thiamine, multivitamins and folic acid. on rifaximin and Trental 400 every 8..Ammonia level < 10 Pulm: On PRVC/AC RR 14, TV 500, IT:1.0, PEEP:5, FIO2 45% Continue with vent support keep sat >92% Bronchodilators every 4 hours, solumederol 40mg Q12 ICU vent bundle. s/p CT guided thoracentesis 07/12 with removal 800ml -transudative effusion. Pleural fluid culture- NGTD Pulm is following- Dr. Mckeon s/p bronch 07/13 (small mucus plugs removed ) follow up on BAL results- NGTD. Possible need lung biopsy. Consulted CT surgery 07/21 . Ordered PEDRO, CRP and RF CV: Monitor HR and BP and maintain MAP >65 mmHg. Echo from June 22 showed an EF of 50-55%. Echo 07/15: EF 55-60%, no RWMA, mod TR. /renal: Monitor renal function, I's and O's, and electrolyte replacement s/p CT guided paracentesis 07/12 with removal 4.3L. Follow up on cultures- NGTD Dr. Tariq. Renal US: No hydronephrosis. -2500 cc with hemodialysis yesterday GI: On Protonix 40 mg IV twice daily. Tube feeds held overnight( Nepro with goal rate 40ml/hr) GI eval for anemia and Hemoccult positive ID: Continue abx(azithromycin) ID is following. Monitor for signs of infections( Fever and WBC). Rocephin discontinued 07/20 Strep pneumoniae and Legionella urinary antigen negative. Blood cultures 07/09: NGTD, sputum cx from 07/11: NGTD Follow up on BAL results-1 with yeast. 07/12: Peritoneal and pleural fluid cxs: NGTD Endo: On SSI medium scale with Accu-Chek q.6h. for glycemic control Heme: Monitor CBC, for transfusion 2units PRBC, today. Patient received Vitamin K 10mg x1 and DDAVP on 07/19, Check H/H post transfusion., monitor Coags/ Fibrinogen level. GI prophylaxis with Protonix 40 mg twice a day and DVT prophylaxis with SCDs, heparin subcu held. In light of hemoptysis and heme positive stools CCT 30 mins Wang Jacobs MD Jul 21, 2016 13:20 Wang Jacobs MD Jul 21, 2016 13:20
[2016-07-21] MEDS: ARTIFICIAL TEARS OPTH SOLN 15 ML BTL EACH EYE SCH (13:25)
[2016-07-21] MEDS ORDERED: TERBUTALINE INJ 1 MG/ML AMP SQ PRN (14:00)
--- NOTE | 2016-07-21 14:32 | PD.PROCEDR ---
Central Line Procedure REASON FOR PROCEDURE Central venous access PROCEDURE PERFORMED Central line placement: Left IJ CVL CONSENT Informed consent for procedure was obtained from . The risks and benefits of the procedure were discussed to include but limited to bleeding, clot formation, infection, and even . ANESTHESIA Local injection of 1% Lidocaine DESCRIPTION OF THE PROCEDURE The patient was placed in supine, mild Trendelenburg position. The area was exposed and cleansed with ChloraPrep, times two. Large sterile drape was used to cover the patient, with the site exposed, under sterile conditions including cap, face mask, sterile gown, and sterile gloves. On single attempt, the introducer needle was inserted with negative pressure in syringe and venous flash was obtained. The guide wire was then advanced without any restriction and the needle was removed. The dilator was used without any complications. Using Seldinger technique the triple-lumen antibiotic-coated catheter was advanced over the guide wire to a depth of 20 centimeters. The guide wire was removed. All ports were aspirated with dark venous blood return and flushed easily with sterile saline. All ports were capped. Antibiotic disc was placed around central line at puncture site. The central line was secured to the skin with two interrupted 2.0 silk sutures. The area was bandaged with sterile see- through central line bandage. RADIOLOGICAL DATA Ultrasound guidance was used to locate left internal jugular vein. Doppler/ color flow was used to confirm venous flow. COMPLICATIONS: No apparent complications ESTIMATED BLOOD LOSS: Less than 5 cc. Wang Jacobs MD Jul 21, 2016 14:32
[2016-07-21] MEDS: PHENYLEPHRINE INJ 160 MG in DEXTROSE 5% IN WATE 500 ML INJ 484 ML IV SCH ×2 (14:34)
[2016-07-21] MEDS: MIDAZOLAM 100 MG/ML INJ 100 ML IV SCH (14:34)
[2016-07-21] MEDS ORDERED: SODIUM CHLORIDE 0.9% FLUSH 10 ML FLUSH IVF PRN (14:45)
--- NOTE | 2016-07-21 15:09 | RADRPT ---
EXAM DATE/TIME: 07/21/2016 14:46 [place] COMPARISON: CHEST SINGLE AP, July 20, 2016, 13:24. INDICATIONS : Central line placement. MEDICAL HISTORY : None. SURGICAL HISTORY : None. ENCOUNTER: Initial ACUITY: 1 day PAIN SCORE: 10/10 LOCATION: Bilateral chest FINDINGS: Portable AP view of the chest demonstrates a normal-sized cardiac silhouette. Endotracheal tube tip i s near the naldo measuring 4 mm from the naldo. A nasogastric tube courses beyond the GE junction. Left IJ central line distal tip is in the SVC. Right IJ line tip is at the cavoatrial junction. No pn eumothorax is identified. There is severe bilateral airspace consolidation most severe in the left up per lung zone and bibasilar regions. Multiple lines overlie the patient. CONCLUSION: 1. Endotracheal tube tip is at the naldo and should be retracted. 2. The recently placed left internal jugular central line distal tip is in the SVC. No pneumothorax i s visualized. 3. Stable bilateral severe air space consolidation. Qasim Osuna MD on July 21, 2016 at 15:06 Board Certified Radiologist. This report was verified electronically.
--- NOTE | 2016-07-21 15:22 | HHI.IDPN ---
Subjective Subjective Remarks Notes reviewed Getting HD Started on HD 07/19 Temps 99+ BP ok Low UO WBC continues to rise Bronch with yeast Patient had HIV testing 07/02 - negative Antibiotics Zithromax Lines [facility] central line Past Medical History Reviewed Allergies: Coded Allergies: No Known Allergies (Unverified , 07/09/16) Objective . Vital Signs Date Time Temp Pulse Resp B/P Pulse Ox O2 Delivery O2 Flow Rate FiO2 07/21/16 12:10 134 16 90/44 96 07/21/16 12:05 133 16 88/44 95 07/21/16 12:00 99.5 132 14 86/42 95 07/21/16 12:00 132 07/21/16 12:00 45 07/21/16 11:56 95 45 07/21/16 11:55 133 18 86/42 95 07/21/16 11:50 133 15 86/42 95 07/21/16 11:30 135 16 87/43 95 07/21/16 11:00 134 15 86/42 96 07/21/16 10:30 132 18 96/47 97 07/21/16 10:00 134 16 96/47 96 07/21/16 10:00 134 07/21/16 09:30 135 16 94/46 96 07/21/16 09:05 141 16 103/51 97 07/21/16 09:00 139 17 95/46 96 07/21/16 08:49 96 45 07/21/16 08:45 143 19 96/47 96 07/21/16 08:30 145 18 100/49 95 07/21/16 08:15 131 16 96/46 98 07/21/16 08:00 132 07/21/16 08:00 99.0 132 15 94/45 98 07/21/16 08:00 45 07/21/16 07:45 125 16 95/47 98 07/21/16 07:30 126 15 96/47 99 07/21/16 07:15 124 18 95/46 100 07/21/16 07:00 123 14 94/46 99 07/21/16 06:45 122 15 95/47 99 07/21/16 06:30 120 14 97/49 98 07/21/16 06:15 119 14 93/45 98 07/21/16 06:00 119 16 94/46 98 07/21/16 06:00 119 07/21/16 05:45 119 14 91/43 98 07/21/16 05:30 118 14 89/44 99 07/21/16 05:15 118 14 91/43 98 07/21/16 05:00 117 14 89/43 98 07/21/16 04:45 113 14 92/43 99 07/21/16 04:30 109 14 93/45 98 07/21/16 04:20 99 45 07/21/16 04:15 111 14 91/44 98 07/21/16 04:00 111 07/21/16 04:00 50 07/21/16 04:00 111 14 92/45 98 07/21/16 04:00 98.9 111 14 92/45 98 07/21/16 02:00 121 07/21/16 00:15 97 45 07/21/16 00:00 119 07/21/16 00:00 50 07/21/16 00:00 99.2 119 14 89/44 98 07/20/16 22:41 100 45 07/20/16 22:00 122 07/20/16 20:08 98 50 07/20/16 20:00 50 07/20/16 20:00 99.4 112 14 97/47 98 07/20/16 20:00 112 07/20/16 18:00 115 07/20/16 16:19 97 50 07/20/16 16:00 119 07/20/16 16:00 99.0 117 16 91/44 98 07/20/16 16:00 50 07/20/16 07/20/16 07/21/16 15:00 23:00 07:00 Intake Total 514 ml 583 ml 477 ml Output Total 2050 ml 20 ml 260 ml Balance -1536 ml 563 ml 217 ml IV Total 208 ml 264 ml 318 ml Tube Feeding 306 ml 319 ml 159 ml Output Urine Total 50 ml 20 ml 10 ml Stool Total 250 ml Hemodialysis 2000 ml # Bowel Movements 1 1 . Laboratory Tests Test 07/20/16 07/21/16 05:33 04:23 White Blood Count 29.8 TH/MM3 31.0 TH/MM3 Red Blood Count 2.53 MIL/MM3 2.17 MIL/MM3 Hemoglobin 7.7 GM/DL 6.7 GM/DL Hematocrit 23.8 % 20.5 % Mean Corpuscular Volume 93.8 FL 94.7 FL Mean Corpuscular Hemoglobin 30.4 PG 30.7 PG Mean Corpuscular Hemoglobin 32.4 % 32.4 % Concent Red Cell Distribution Width 19.9 % 19.4 % Platelet Count 65 TH/MM3 57 TH/MM3 Mean Platelet Volume 11.4 FL 11.5 FL Neutrophils (%) (Auto) 93.4 % 93.5 % Lymphocytes (%) (Auto) 3.1 % 4.0 % Monocytes (%) (Auto) 3.1 % 2.0 % Eosinophils (%) (Auto) 0.2 % 0.2 % Basophils (%) (Auto) 0.2 % 0.3 % Neutrophils # (Auto) 27.8 TH/MM3 29.0 TH/MM3 Lymphocytes # (Auto) 0.9 TH/MM3 1.2 TH/MM3 Monocytes # (Auto) 0.9 TH/MM3 0.6 TH/MM3 Eosinophils # (Auto) 0.1 TH/MM3 0.0 TH/MM3 Basophils # (Auto) 0.1 TH/MM3 0.1 TH/MM3 CBC Comment AUTO DIFF AUTO DIFF Differential Total Cells 100 100 Counted Neutrophils % (Manual) 89 % 69 % Band Neutrophils % 7 % 16 % Lymphocytes % 1 % 7 % Monocytes % 1 % 3 % Neutrophils # (Manual) 29.2 TH/MM3 27.9 TH/MM3 Metamyelocytes 1 % 1 % Myelocytes 1 % 4 % Nucleated Red Blood Cells 3 /100 WBC 2 /100 WBC Differential Comment FINAL DIFF FINAL DIFF MANUAL MANUAL Platelet Estimate LOW LOW Platelet Morphology Comment ENLARGED ENLARGED Laboratory Tests Test 07/20/16 07/21/16 05:33 04:23 Sodium Level 138 MEQ/L 139 MEQ/L Potassium Level 4.2 MEQ/L 4.0 MEQ/L Chloride Level 102 MEQ/L 102 MEQ/L Carbon Dioxide Level 19.2 MEQ/L 24.6 MEQ/L Anion Gap 17 MEQ/L 12 MEQ/L Blood Urea Nitrogen 117 MG/DL 110 MG/DL Creatinine 3.44 MG/DL 3.04 MG/DL Estimat Glomerular Filtration 15 ML/MIN 18 ML/MIN Rate Random Glucose 273 MG/DL 279 MG/DL Calcium Level 9.0 MG/DL 8.8 MG/DL Total Bilirubin 1.5 MG/DL Aspartate Amino Transf 44 U/L (AST/SGOT) Alanine Aminotransferase 38 U/L (ALT/SGPT) Alkaline Phosphatase 93 U/L Total Protein 5.4 GM/DL Albumin 3.1 GM/DL 2.8 GM/DL Human Chorionic Gonadotropin, 1 MIU/ML Quant Phosphorus Level 3.6 MG/DL Microbiology Date/Time Procedure Status Source Growth 07/18/16 17:30 Stool Occult Blood ([facility]) - Final Complete Stool Stool HEMOCCULT POSITIVE Imaging Last Impressions Chest X-Ray 07/18/16 0000 Signed Impressions: Service Date/Time: Monday, July 18, 2016 10:42 - CONCLUSION: Stable chest x- ray with relatively diffuse bilateral airspace consolidation, left greater than right. Qasim Osuna MD Renal Ultrasound 07/17/16 0000 Signed Impressions: Service Date/Time: Sunday, July 17, 2016 10:58 - CONCLUSION: 1. Normal ultrasound appearance of the kidneys. There is no hydronephrosis. 2. Urinary bladder is not visualized. 3. There is free fluid within the abdomen and pelvis. Qasim Osuna MD Thoracentesis Ultrasound 07/12/16 0000 Signed Impressions: Service Date/Time: Tuesday, July 12, 2016 10:17 - CONCLUSION: Uncomplicated ultrasound guided thoracentesis. Garret Verma MD Cyst Biopsy Asp-Paracentesis US 07/12/16 0000 Signed Impressions: Service Date/Time: Tuesday, July 12, 2016 10:17 - CONCLUSION: Uncomplicated ultrasound guided paracentesis. Garret Verma MD Liver Ultrasound 07/11/16 0000 Signed Impressions: Service Date/Time: Monday, July 11, 2016 10:24 - CONCLUSION: Ascites and pleural effusions. Splenomegaly. Tiny gallstone or gallbladder polyp Qasim Edwards MD Chest CT 07/11/16 0000 Signed Impressions: Service Date/Time: Monday, July 11, 2016 22:37 - CONCLUSION: Bilateral pleural effusions, slight ascites and significant worsening of airspace consolidation in both lungs. Mert Laurent MD Physical Exam GENERAL: on the vent, sedated SKIN: Warm and dry. Has jaundice. Has spider angiomata in her upper chest HEAD: Atraumatic. Normocephalic. No temporal wasting, or tenderness. EYES: Boody conjunctiva. No petechia or hemorrhage. Has scleral icterus. No injection or drainage. EARS, NOSE AND THROAT: Nose without bleeding or purulent nasal discharge. She is orally intubated. CARDIOVASCULAR: Regular rate and rhythm. No murmurs, rubs or gallops heard CHEST: Diffuse rhonchi ABDOMEN: Soft, mildly distended, bowel sounds present and normoactive, no tenderness, no guarding or rebound. EXTREMITIES: No clubbing, or cyanosis. Has bilateral at least 3+ pitting edema. Both feet well perfused and warm. NEUROLOGICAL: lethargic : Arevalo in place, minimal brownish urine in arevalo bag LINE: No evidence of infection Assessment & Plan Remarks IMPRESSION Bilateral infiltrates, worsening in very acute progression, likely more inflammatory, ?ARDS, ?other inflammatory - her CXR has changed very quickly - sputum negative - pneumonia vs pneumonitis 2/2 non infectious etiology Respiratory failure, reintubated 07/15 ETOH hepatitis Leukocytosis, up, worsening - ?new infection - at risk for fungal, since has been on steroids - has diarrhea, C diff negative ARF , no e/o intertitial nephritis (neg urine eos) Diarrhea, abx associated RECOMMENDATION 2 BC today Stop Zithromax Follow CBC Open lung biopsy if no improvement and still no diagnosis - once feasible from resp standpoint On steroids Dose of Vanco Start Micafungin and Flagyl D/W Whit Magaña MD Jul 21, 2016 15:22
[2016-07-21] MEDS: SODIUM CHLORIDE 0.9% FLUSH 10 ML FLUSH IVF SCH (15:51)
[2016-07-21] MEDS: MICAFUNGIN INJ 100 MG in SODIUM CHLORIDE 0.9% INJ 100 ML IV SCH (15:52)
[2016-07-21] MEDS: HEPARIN SODIUM - IV 10,000 UNITS/10 ML VIAL PRN (16:04)
[2016-07-21] MEDS: GENTAMICIN SULFATE (DIALYSIS USE ONLY) 20 MG/2 ML VIAL IV PRN (16:04)
[2016-07-21] MEDS ORDERED: VANCOMYCIN INJ 1,000 MG in SODIUM CHLOR 0.9% 250 ML INJ 250 ML IV ONE (17:00)
--- NOTE | 2016-07-21 17:13 | PD.CONS ---
HPI History of Present Illness This is a 31 year old [woman] hospitalized for PNA, respiratory failure. Hx obtained from EMR, pt intubated. She has been seen previously in the last 2 months for hypokalemia, jaundice, and a subsequent occasion for ascites, pleural effusion, sepsis, jaundice, PNA. she is a heavy drinker. Liver US 07-11 shows ascites, pleural effusion, splenomegaly, tiny gallstone or gallbladder polyp. GI has been consulted for heme pos stool. Pt had hemoptysis , hematuria 3 days ago, s/p 2 x PRBC, 2 X FFP. Currently with melena visible in rectal bag. Her Hgb is worsening. She is on dialysis. Liver w/u done on previous visit in May. (Harika Lucero) PFSH Past Medical History Pneumonia Alcoholic hepatitis Anemia Tobacco dependence Alcohol abuse Ascites Pleural effusion Hypertension Past Surgical History Right arthroscopic surgery (Harika Lucero) Coded Allergies: No Known Allergies (Unverified , 07/09/16) Family History grew in a [facility] house. Social History Lives with her and son, has not been smoking or drinking alcohol from the last one month and denies other toxic habits. (Harika Lucero) Review of Systems ROS noncontributory (Harika Lucero) GI Exam Vitals I&O Vital Signs Date Time Temp Pulse Resp B/P Pulse Ox O2 Delivery O2 Flow Rate FiO2 07/21/16 16:17 93 45 07/21/16 16:00 99.0 123 16 114/57 96 07/21/16 16:00 45 07/21/16 16:00 123 07/21/16 14:45 127 15 98/49 94 07/21/16 14:42 126 15 100/51 94 07/21/16 14:39 126 15 100/53 94 07/21/16 14:36 126 16 105/52 94 07/21/16 14:33 134 17 121/56 93 07/21/16 14:30 135 22 115/58 94 07/21/16 14:27 125 19 125/70 95 07/21/16 14:24 127 18 142/86 96 07/21/16 14:21 129 17 154/99 96 07/21/16 14:18 131 19 146/101 95 07/21/16 14:15 129 21 157/94 97 07/21/16 14:00 132 07/21/16 14:00 132 20 95/47 94 07/21/16 13:30 132 16 88/43 95 07/21/16 13:00 133 15 90/44 95 07/21/16 12:30 134 15 88/44 95 07/21/16 12:15 133 15 88/43 95 07/21/16 12:10 134 16 90/44 96 07/21/16 12:10 134 16 90/44 96 07/21/16 12:05 133 16 88/44 95 07/21/16 12:05 133 16 88/44 95 07/21/16 12:00 99.5 132 14 86/42 95 07/21/16 12:00 132 07/21/16 12:00 45 07/21/16 12:00 132 14 86/42 95 07/21/16 11:56 95 45 07/21/16 11:55 133 18 86/42 95 07/21/16 11:50 133 15 86/42 95 07/21/16 11:30 135 16 87/43 95 07/21/16 11:00 134 15 86/42 96 07/21/16 10:30 132 18 96/47 97 07/21/16 10:00 134 16 96/47 96 07/21/16 10:00 134 07/21/16 09:30 135 16 94/46 96 07/21/16 09:05 141 16 103/51 97 07/21/16 09:00 139 17 95/46 96 07/21/16 08:49 96 45 07/21/16 08:45 143 19 96/47 96 07/21/16 08:30 145 18 100/49 95 07/21/16 08:15 131 16 96/46 98 07/21/16 08:00 132 07/21/16 08:00 99.0 132 15 94/45 98 07/21/16 08:00 45 07/21/16 07:45 125 16 95/47 98 07/21/16 07:30 126 15 96/47 99 07/21/16 07:15 124 18 95/46 100 07/21/16 07:00 123 14 94/46 99 07/21/16 06:45 122 15 95/47 99 07/21/16 06:30 120 14 97/49 98 07/21/16 06:15 119 14 93/45 98 07/21/16 06:00 119 16 94/46 98 07/21/16 06:00 119 07/21/16 05:45 119 14 91/43 98 07/21/16 05:30 118 14 89/44 99 07/21/16 05:15 118 14 91/43 98 07/21/16 05:00 117 14 89/43 98 07/21/16 04:45 113 14 92/43 99 07/21/16 04:30 109 14 93/45 98 07/21/16 04:20 99 45 07/21/16 04:15 111 14 91/44 98 07/21/16 04:00 111 07/21/16 04:00 50 07/21/16 04:00 111 14 92/45 98 07/21/16 04:00 98.9 111 14 92/45 98 07/21/16 02:00 121 07/21/16 00:15 97 45 07/21/16 00:00 119 07/21/16 00:00 50 07/21/16 00:00 99.2 119 14 89/44 98 07/20/16 22:41 100 45 07/20/16 22:00 122 07/20/16 20:08 98 50 07/20/16 20:00 50 07/20/16 20:00 99.4 112 14 97/47 98 07/20/16 20:00 112 07/20/16 18:00 115 I/O 07/20/16 07/20/16 07/20/16 07/21/16 07/21/16 07/21/16 07:00 15:00 23:00 07:00 15:00 23:00 Intake Total 470 ml 514 ml 583 ml 477 ml 1409 ml Output Total 25 ml 2050 ml 20 ml 260 ml 150 ml Balance 445 ml -1536 ml 563 ml 217 ml 1259 ml Intake Oral 0 ml IV Total 152 ml 208 ml 264 ml 318 ml 291 ml Tube Feeding 218 ml 306 ml 319 ml 159 ml 311 ml Packed Cells 687 ml Other 100 ml 120 ml Output Urine Total 25 ml 50 ml 20 ml 10 ml Stool Total 250 ml 150 ml Hemodialysis 2000 ml # Bowel Movements 3 1 1 Imaging Last Impressions Chest X-Ray 07/21/16 1431 Signed Impressions: Service Date/Time: July 14:46 - CONCLUSION: 1. Endotracheal tube tip is at the naldo and should be retracted. 2. The recently placed left internal jugular central line distal tip is in the SVC. No pneumothorax is visualized. 3. Stable bilateral severe air space consolidation. Qasim Osuna MD Renal Ultrasound 07/17/16 0000 Signed Impressions: Service Date/Time: Sunday, July 17, 2016 10:58 - CONCLUSION: 1. Normal ultrasound appearance of the kidneys. There is no hydronephrosis. 2. Urinary bladder is not visualized. 3. There is free fluid within the abdomen and pelvis. Qasim Osuna MD Thoracentesis Ultrasound 07/12/16 0000 Signed Impressions: Service Date/Time: Tuesday, July 12, 2016 10:17 - CONCLUSION: Uncomplicated ultrasound guided thoracentesis. Garret Verma MD Cyst Biopsy Asp-Paracentesis US 07/12/16 0000 Signed Impressions: Service Date/Time: Tuesday, July 12, 2016 10:17 - CONCLUSION: Uncomplicated ultrasound guided paracentesis. Garret Verma MD Liver Ultrasound 07/11/16 0000 Signed Impressions: Service Date/Time: Monday, July 11, 2016 10:24 - CONCLUSION: Ascites and pleural effusions. Splenomegaly. Tiny gallstone or gallbladder polyp Qasim Edwards MD Chest CT 07/11/16 0000 Signed Impressions: Service Date/Time: Monday, July 11, 2016 22:37 - CONCLUSION: Bilateral pleural effusions, slight ascites and significant worsening of airspace consolidation in both lungs. Mert Laurent MD Laboratory Test 07/21/16 07/21/16 04:23 08:10 White Blood Count 31.0 TH/MM3 Red Blood Count 2.17 MIL/MM3 Hemoglobin 6.7 GM/DL Hematocrit 20.5 % Mean Corpuscular Volume 94.7 FL Mean Corpuscular Hemoglobin 30.7 PG Mean Corpuscular Hemoglobin 32.4 % Concent Red Cell Distribution Width 19.4 % Platelet Count 57 TH/MM3 Mean Platelet Volume 11.5 FL Neutrophils (%) (Auto) 93.5 % Lymphocytes (%) (Auto) 4.0 % Monocytes (%) (Auto) 2.0 % Eosinophils (%) (Auto) 0.2 % Basophils (%) (Auto) 0.3 % Neutrophils # (Auto) 29.0 TH/MM3 Lymphocytes # (Auto) 1.2 TH/MM3 Monocytes # (Auto) 0.6 TH/MM3 Eosinophils # (Auto) 0.0 TH/MM3 Basophils # (Auto) 0.1 TH/MM3 CBC Comment AUTO DIFF Differential Total Cells 100 Counted Neutrophils % (Manual) 69 % Band Neutrophils % 16 % Lymphocytes % 7 % Monocytes % 3 % Neutrophils # (Manual) 27.9 TH/MM3 Metamyelocytes 1 % Myelocytes 4 % Nucleated Red Blood Cells 2 /100 WBC Differential Comment FINAL DIFF MANUAL Platelet Estimate LOW Platelet Morphology Comment ENLARGED Sodium Level 139 MEQ/L Potassium Level 4.0 MEQ/L Chloride Level 102 MEQ/L Carbon Dioxide Level 24.6 MEQ/L Anion Gap 12 MEQ/L Blood Urea Nitrogen 110 MG/DL Creatinine 3.04 MG/DL Estimat Glomerular Filtration 18 ML/MIN Rate Random Glucose 279 MG/DL Calcium Level 8.8 MG/DL Phosphorus Level 3.6 MG/DL Albumin 2.8 GM/DL Blood Type A NEGATIVE Crossmatch Leukocyte-Reduced Red Blood Cells Blood Bank Comment Date/Time Procedure Status Source Growth 07/18/16 17:30 Stool Occult Blood ([facility]) - Final Complete Stool Stool HEMOCCULT POSITIVE Physical Examination HEENT: normocephalic; atraumatic; no jaundice. CHEST: CTA CARDIAC: tachy, +murmur ABDOMEN: Soft, distended, bowel sounds hypoactive. EXTREMITIES: No clubbing, cyanosis, generalized edema SKIN: Normal; no rash; no jaundice. BROKE BEATER: sedated on vent (Harika Lucero) Assessment and Plan Plan ASSESSMENT - anemia - heme pos stool. Hgb 6.7 and trending down. Melena in rectal bag. s/ p 2 x FFP, 2 x RBC - thrombocytopenia - PLT 57 ?coagulopathy additional labwork pending - alcoholic cirrhosis - pt heavy drinker. prev liver w/u neg for hepatitis, autoimmune cause of liver dz - leukocytosis - worsening. ID following. PLAN - EGD when stable - await additional hematology labs - further recommendations to follow This pt seen by myself and Dr Oconnor and this note is written on his behalf (Harika Lucero) Physician Comments Agree with the plan as above, will follow up with you, continue supportive care for now. (Sudhakar Oconnor MD) Harika Lucero Jul 21, 2016 17:12 Sudhakar Oconnor MD Jul 22, 2016 10:20
[2016-07-21 18:44] LABS: APTT (PATIENT) 27.5 SEC (24.3-30.1); INTERNATIONAL NORMALIZED RATIO 1.3 RATIO; PROTHROMBIN TIME - PATIENT 14.8 SEC (9.8-11.6)
[2016-07-21 18:57] LABS: REVIEW FLAG FINAL
--- NOTE | 2016-07-21 19:48 | HHI.PR ---
Subjective Remarks 31 YOWFw ith VDRF,Lung infilt,Pl effusion Had bronch Reintubated 07/14 On ACV Sedated with Fentanyl Worsening renal functions had HD CXR slight worsening infilt at BS Started Micafungin Objective Vital Signs Vital Signs Date Time Temp Pulse Resp B/P Pulse Ox O2 Delivery O2 Flow Rate FiO2 07/21/16 18:00 114 07/21/16 16:17 93 45 07/21/16 16:00 99.0 123 16 114/57 96 07/21/16 16:00 45 07/21/16 16:00 123 07/21/16 14:45 127 15 98/49 94 07/21/16 14:42 126 15 100/51 94 07/21/16 14:39 126 15 100/53 94 07/21/16 14:36 126 16 105/52 94 07/21/16 14:33 134 17 121/56 93 07/21/16 14:30 135 22 115/58 94 07/21/16 14:27 125 19 125/70 95 07/21/16 14:24 127 18 142/86 96 07/21/16 14:21 129 17 154/99 96 07/21/16 14:18 131 19 146/101 95 07/21/16 14:15 129 21 157/94 97 07/21/16 14:00 132 07/21/16 14:00 132 20 95/47 94 07/21/16 13:30 132 16 88/43 95 07/21/16 13:00 133 15 90/44 95 07/21/16 12:30 134 15 88/44 95 07/21/16 12:15 133 15 88/43 95 07/21/16 12:10 134 16 90/44 96 07/21/16 12:10 134 16 90/44 96 07/21/16 12:05 133 16 88/44 95 07/21/16 12:05 133 16 88/44 95 07/21/16 12:00 99.5 132 14 86/42 95 07/21/16 12:00 132 07/21/16 12:00 45 07/21/16 12:00 132 14 86/42 95 07/21/16 11:56 95 45 07/21/16 11:55 133 18 86/42 95 07/21/16 11:50 133 15 86/42 95 07/21/16 11:30 135 16 87/43 95 07/21/16 11:00 134 15 86/42 96 07/21/16 10:30 132 18 96/47 97 07/21/16 10:00 134 16 96/47 96 07/21/16 10:00 134 07/21/16 09:30 135 16 94/46 96 07/21/16 09:05 141 16 103/51 97 07/21/16 09:00 139 17 95/46 96 07/21/16 08:49 96 45 07/21/16 08:45 143 19 96/47 96 07/21/16 08:30 145 18 100/49 95 07/21/16 08:15 131 16 96/46 98 07/21/16 08:00 132 07/21/16 08:00 99.0 132 15 94/45 98 07/21/16 08:00 45 07/21/16 07:45 125 16 95/47 98 07/21/16 07:30 126 15 96/47 99 07/21/16 07:15 124 18 95/46 100 07/21/16 07:00 123 14 94/46 99 07/21/16 06:45 122 15 95/47 99 07/21/16 06:30 120 14 97/49 98 07/21/16 06:15 119 14 93/45 98 07/21/16 06:00 119 16 94/46 98 07/21/16 06:00 119 07/21/16 05:45 119 14 91/43 98 07/21/16 05:30 118 14 89/44 99 07/21/16 05:15 118 14 91/43 98 07/21/16 05:00 117 14 89/43 98 07/21/16 04:45 113 14 92/43 99 07/21/16 04:30 109 14 93/45 98 07/21/16 04:20 99 45 07/21/16 04:15 111 14 91/44 98 07/21/16 04:00 111 07/21/16 04:00 50 07/21/16 04:00 111 14 92/45 98 07/21/16 04:00 98.9 111 14 92/45 98 07/21/16 02:00 121 07/21/16 00:15 97 45 07/21/16 00:00 119 07/21/16 00:00 50 07/21/16 00:00 99.2 119 14 89/44 98 07/20/16 22:41 100 45 07/20/16 22:00 122 07/20/16 20:08 98 50 07/20/16 20:00 50 07/20/16 20:00 99.4 112 14 97/47 98 07/20/16 20:00 112 I/O 07/20/16 07/20/16 07/20/16 07/21/16 07/21/16 07/21/16 07:00 15:00 23:00 07:00 15:00 23:00 Intake Total 470 ml 514 ml 583 ml 477 ml 1409 ml Output Total 25 ml 2050 ml 20 ml 260 ml 150 ml 4000 ml Balance 445 ml -1536 ml 563 ml 217 ml 1259 ml -4000 ml Intake Oral 0 ml IV Total 152 ml 208 ml 264 ml 318 ml 291 ml Tube Feeding 218 ml 306 ml 319 ml 159 ml 311 ml Packed Cells 687 ml Other 100 ml 120 ml Output Urine Total 25 ml 50 ml 20 ml 10 ml Stool Total 250 ml 150 ml Hemodialysis 2000 ml 4000 ml # Bowel Movements 3 1 1 Result Diagram: 07/21/16 1805 07/21/16 0423 Objective Remarks GENERAL: MBMN WF with RF, extubated on BIPAP SKIN: Warm and dry. HEAD: Normocephalic. EYES: No scleral icterus. No injection or drainage. NECK: Supple, trachea midline. No JVD or lymphadenopathy. CARDIOVASCULAR: Regular rate and rhythm without murmurs, gallops, or rubs. RESPIRATORY: Breath sounds equal bilaterally. No accessory muscle use. Bilat rales GASTROINTESTINAL: Abdomen soft, non-tender, nondistended. MUSCULOSKELETAL: No cyanosis, ++ edema. BACK: Nontender without obvious deformity. No CVA tenderness. A/P Assessment and Plan VDRF, Reintubated 07/15 Bilat lung infilt Pleural effusion Ascitis hypoxia PLAN: vent support Diurease Cont Abx per ID Wean 02 to keep sat >90% IV Solumedrol monitor renal functions. Sedation with Fentanyl. monitor renal Functions If lung infilterates don't improve after HD, may need lung bx. DW at BS Mike,Tomi Garcia MD Jul 21, 2016 19:48
[2016-07-21 19:57] LABS: RHEUMATOID FACTOR TRIGGER LESS THAN 10.0 IU/ML (0.0-14.9)
[2016-07-21] MEDS: metroNIDAZOLE 500 MG TAB PO SCH (22:31)
[2016-07-22] VITALS (21 sets, daily range): BP systolic 101–114; BP diastolic 49–55; PULSE 100–129; RESP 14–18; TEMP 99.5–100.5; O2SAT 93–96
[2016-07-22] MEDS: RESP: ALBUTEROL 2.5 MG/IPRATROPIUM 0.5 MG NEB (SCH) NEB ×5 (03:34→20:35)
[2016-07-22] MEDS: PROPOFOL 1000 MG/100 ML INJ 100 ML IV SCH ×3 (03:51→13:32)
[2016-07-22] MEDS: PENTOXIFYLLINE 400 MG CONTROLLED RELEASE TAB PO SCH ×4 (03:53→22:22)
[2016-07-22] MEDS: INSULIN NovoLIN REGULAR SUPPLEMENTAL SCALE SQ SCH ×4 (03:53→22:19)
[2016-07-22 04:35] LABS: HEMATOCRIT 25.3 % (35.0-46.0); HEMO FLAGS AUTO DIFF; MEAN CELL VOLUME 92.9 FL (80.0-100.0); MEAN CORPUSCULAR HEMOGLOBIN 33.2 PG (27.0-34.0); MEAN CORPUSCULAR HGB CONC 35.7 % (32.0-36.0); PLATELET COUNT 57 TH/MM3 (150-450); RED BLOOD COUNT 2.73 MIL/MM3 (4.00-5.30); RED CELL DISTRIBUTION WIDTH 18.7 % (11.6-17.2); WHITE BLOOD COUNT 48.2 TH/MM3 (4.0-11.0)
[2016-07-22 04:51] LABS: BICARBONATE 24.4 MEQ/L (21.0-32.0); POTASSIUM 4.3 MEQ/L (3.5-5.1)
[2016-07-22 06:01] LABS: BANDS 14 % (0-6); CORRECTED NUCLEATED RBC 12 /100 WBC (0-0); METAMYELOCYTES 8 % (0-1); NEUTROPHIL # MANUAL DIFF 45.8 TH/MM3 (1.8-7.7); POLYS (SEG NEUTROPHILS) 72 % (16-70); PROMYELOCYTES 1 % (0-0); WBC DIFF SAMPLE 100
[2016-07-22 06:03] LABS: PLATELET ESTIMATE SMEAR LOW (NORMAL); PLATELET MORPHOLOGY NORMAL (NORMAL); SCAN/DIFF FINAL DIFF MANUAL
[2016-07-22] MEDS: methylPREDNISolone SOD SUCC 40 MG/1 ML VIAL IV PUSH SCH ×2 (06:07→18:34)
[2016-07-22] MEDS: metroNIDAZOLE 500 MG TAB PO SCH ×3 (06:07→22:21)
[2016-07-22] MEDS: MIDAZOLAM 100 MG/ML INJ 100 ML IV SCH (06:08)
--- NOTE | 2016-07-22 06:38 | RADRPT ---
EXAM DATE/TIME: 07/22/2016 05:20 [facility] COMPARISON: CHEST SINGLE AP, July 21, 2016, 14:46. INDICATIONS : Evaluate for pneumonia. MEDICAL HISTORY : None. SURGICAL HISTORY : None. ENCOUNTER: Subsequent ACUITY: 2 months PAIN SCORE: Non-responsive. LOCATION: chest FINDINGS: The cardiac silhouette is normal in transverse diameter. Support lines and tubes are in satisfactory position. There is patchy alveolar disease bilaterally compatible with edema or pneumonia. Small bila teral pleural effusions are identified. CONCLUSION: 1. Patchy alveolar disease characteristic of edema or pneumonia. There has been no significant de la cruz e when compared to the prior exam. Jamaal Eastman MD on July 22, 2016 at 6:36 Board Certified Radiologist. This report was verified electronically.
--- NOTE | 2016-07-22 07:53 | MB ---
cc: LAURITA SHEA DATE OF CONSULTATION 07/21/16 1983 HISTORY OF PRESENT ILLNESS Mariano is a 31-year-old female, past medical history of extensive ETOH, hepatitis, ascites, cirrhosis of the liver with alcohol abuse admitted on the for health care acquired pneumonia. Her x-ray showed diffuse consolidation bilateral large effusions, likely representing pulmonary edema. She had been apparently recently admitted in May and, per the nursing staff, she had been on hospice in the past. She did have an echo June 22 which did show an EF of 50-55%. She underwent thoracentesis on the right where they removed 800 mL of fluid on the . Pleural fluid was transudative and then she also underwent a paracentesis of 4300 mL of fluid removal. They called a helicat and was found to be in respiratory distress. Initially, she was on BiPAP. She had worsening leukocytosis. Her white count is now 31,000. We were consulted for possible lung biopsy. Since there was still no diagnosis for her pneumonia being pneumonia versus pneumonitis, the only thing she had was bronchial washings which was done on the which showed some yeast. She is on a broad-spectrum antibiotics to include vancomycin, micafungin. She is also on some pressors. She is now on CVVH. Her platelets are down to 57. Her hemoglobin 6.7 and 20. The patient is overall critically ill. She is still on a ventilator at this time with peak pressures of 34, 45% FIo2, sedated on Diprivan and Fentanyl. Per the nursing staff, She will move her extremities when the sedation is lightened off. She is not following commands at this time. She has also undergone HIV testing which was negative on 07/02. PAST MEDICAL HISTORY 1. Alcohol abuse, 2. Alcoholic hepatitis 3. Hypertension 4. Anemia. PAST SURGICAL HISTORY Arthroscopic knee surgery. ALLERGIES No known allergies MEDICATIONS Home meds include 1. Ativan p.r.n. 2. Rifaximine 3. Atrovent inhaler. 4. Metoprolol 12.5 5. Ceftin 6. Flovent 7. Pentoxifylline 8. Lasix. 9. Oxycodone. 10. Folic acid. 11. Thiamine. 12. Protonix. FAMILY HISTORY Noncontributory. She grew up in a foster home. SOCIAL HISTORY Lives with her and son, has not been smoking or drinking for the past one month, per the admission note. PHYSICAL EXAMINATION VITAL SIGNS: Blood pressure 90/40, heart rate 134, temperature 99.5. GENERAL: The patient is sedated on propofol and also Fentanyl. Appears stated age. Orally intubated. HEENT: Head is normocephalic. Pupils are approximately 2-3 mm very sluggish. NECK: Supple. No JVD. CARDIAC: Heart sounds S1-S2, tachycardiac. No audible rubs or gallops. LUNGS: Coarse bilateral breath sounds Diffuse coarse crackles. ABDOMEN: Protuberant, hypoactive bowel sounds. EXTREMITIES: Reveal 1-2+ upper and lower extremity edema. NEUROLOGIC: She has a positive corneal reflex. She will move her extremities when sedation is lightened. She has a positive gag reflex. LABORATORY DATA Hemoglobin 6.7, hematocrit 20, white cell count 31, platelet count 57. Sodium 139, potassium 4.0, BUN of 110, creatinine 3.04. Urine drug screen was negative for toxicology. Her pleural fluid was transudative 138 WBCs. Pneumoniae titers were negative. Mycoplasma is negative. IMPRESSION Admission with health care acquired associated pneumonia, severe sepsis, ventilator dependent respiratory failure, etiology unknown, chronic cirrhosis of the liver secondary to ETOH use, recurrent ascites status post paracentesis, also pleural effusion status post thoracentesis, acute renal failure, encephalopathy, Currently, the patient is too ill and has significant pancytopenia, ventilator dependent respiratory failure. The patient has been again also evaluated by Dr. Laurita Shea, at this time is not a candidate for any open lung biopsy due to her critically ill state. Dictated by ROSEANNE Bahena MD KENDALL Romo/ /3:37 PM /7:45 AM
[2016-07-22] MEDS: guaiFENesin E.R. 600 MG TAB PO SCH ×2 (09:00→22:22)
[2016-07-22] MEDS: fentaNYL 2,500 MCG/NS 250 ML IV SCH ×2 (09:26→18:34)
[2016-07-22] MEDS: CHLORHEXIDINE 0.12% (ORAL KIT) 15 ML CUP MT SCH (09:27)
[2016-07-22] MEDS: PANTOPRAZOLE SODIUM 40 MG VIAL IV PUSH SCH ×2 (09:30→22:20)
[2016-07-22] MEDS: AZITHROMYCIN 250 MG TAB PO SCH (09:30)
[2016-07-22] MEDS: SODIUM CHLORIDE 0.9% FLUSH 10 ML FLUSH IVF SCH (09:30)
[2016-07-22] MEDS: MULTIVITAMIN TAB PO SCH (09:30)
[2016-07-22] MEDS: THIAMINE HCL 100 MG TAB PO SCH (09:30)
[2016-07-22] MEDS: RIFAXIMIN 550 MG TAB PO SCH ×2 (09:30→22:22)
[2016-07-22] MEDS: SODIUM CHLORIDE 0.9% FLUSH 10 ML FLUSH IV FLUSH SCH (09:30)
[2016-07-22] MEDS: FOLIC ACID 1 MG TAB PO SCH (09:30)
--- NOTE | 2016-07-22 11:19 | HHI.NPPN ---
Subjective History of Present Illness 31-year-old with a history of cirrhosis, pneumonia, respiratory failure intubated Objective Data Data 07/21/16 07/22/16 19:00 07:00 Intake Total 1409 ml 1915 ml Output Total 4150 ml 0 ml Balance -2741 ml 1915 ml IV Total 291 ml 1446 ml Tube Feeding 311 ml 469 ml Packed Cells 687 ml Other 120 ml Output Urine Total 0 ml Stool Total 150 ml 0 ml Hemodialysis 4000 ml Vital Signs Date Time Temp Pulse Resp B/P Pulse Ox O2 Delivery O2 Flow Rate FiO2 07/22/16 08:33 94 40 07/22/16 06:00 126 07/22/16 04:10 93 40 07/22/16 04:00 126 07/22/16 04:00 40 07/22/16 04:00 99.5 129 16 106/53 94 07/22/16 02:00 123 07/22/16 01:11 93 40 07/22/16 00:45 125 14 102/50 93 07/22/16 00:30 127 15 103/50 93 07/22/16 00:15 125 15 104/50 93 07/22/16 00:00 100.5 127 14 101/49 93 07/22/16 00:00 45 07/22/16 00:00 123 07/21/16 23:45 126 15 99/48 93 07/21/16 23:30 126 16 98/48 93 07/21/16 23:15 125 17 97/47 93 07/21/16 23:00 126 17 95/45 93 07/21/16 22:45 126 14 96/46 93 07/21/16 22:30 124 14 103/49 93 07/21/16 22:15 125 14 101/49 93 07/21/16 22:11 94 40 07/21/16 22:00 125 07/21/16 22:00 125 14 101/49 94 07/21/16 21:45 123 14 106/51 94 07/21/16 21:30 123 15 103/51 94 07/21/16 21:15 125 19 97/48 94 07/21/16 21:00 127 14 104/51 94 07/21/16 20:45 126 14 106/51 94 07/21/16 20:30 125 15 105/50 94 07/21/16 20:15 126 16 104/51 98 6/1/17 20:07 94 45 07/21/16 20:00 125 07/21/16 20:00 45 07/21/16 20:00 99.4 126 16 101/49 94 07/21/16 18:00 114 07/21/16 16:17 93 45 07/21/16 16:00 99.0 123 16 114/57 96 07/21/16 16:00 45 07/21/16 16:00 123 07/21/16 14:45 127 15 98/49 94 07/21/16 14:42 126 15 100/51 94 07/21/16 14:39 126 15 100/53 94 07/21/16 14:36 126 16 105/52 94 07/21/16 14:33 134 17 121/56 93 07/21/16 14:30 135 22 115/58 94 07/21/16 14:27 125 19 125/70 95 07/21/16 14:24 127 18 142/86 96 07/21/16 14:21 129 17 154/99 96 07/21/16 14:18 131 19 146/101 95 07/21/16 14:15 129 21 157/94 97 07/21/16 14:00 132 07/21/16 14:00 132 20 95/47 94 07/21/16 13:30 132 16 88/43 95 07/21/16 13:00 133 15 90/44 95 07/21/16 12:30 134 15 88/44 95 07/21/16 12:15 133 15 88/43 95 07/21/16 12:10 134 16 90/44 96 07/21/16 12:10 134 16 90/44 96 07/21/16 12:05 133 16 88/44 95 07/21/16 12:05 133 16 88/44 95 07/21/16 12:00 99.5 132 14 86/42 95 07/21/16 12:00 132 07/21/16 12:00 45 07/21/16 12:00 132 14 86/42 95 07/21/16 11:56 95 45 07/21/16 11:55 133 18 86/42 95 07/21/16 11:50 133 15 86/42 95 07/21/16 11:30 135 16 87/43 95 -: 07/22/16 0400 07/22/16 0400 Microbiology 07/21/16 Aerobic Blood Culture - Preliminary, Resulted NO GROWTH IN 1 DAY 07/21/16 Anaerobic Blood Culture - Preliminary, Resulted NO GROWTH IN 1 DAY 07/21/16 Aerobic Blood Culture - Preliminary, Resulted NO GROWTH IN 1 DAY 07/21/16 Anaerobic Blood Culture - Preliminary, Resulted NO GROWTH IN 1 DAY Medication Review Current Medications Medications (Trade) Dose Ordered Sig/Deni Route Start Time Stop Time Status Last Admin (NS Flush) 2 ml UNSCH PRN IV FLUSH 07/09/16 16:30 07/11/16 02:14 (NS Flush) 2 ml BID IV FLUSH 07/09/16 21:00 07/22/16 09:30 (Tylenol) 650 mg Q4H PRN PO 07/09/16 16:30 (Zofran Inj) 4 mg Q6H PRN IVP 07/09/16 16:30 07/10/16 10:39 (Dulcolax Supp) 10 mg DAILY PRN RECTAL 07/09/16 16:30 (Colace) 100 mg Q12H PO 07/09/16 17:00 07/21/16 17:15 (Narcan Inj) 0.4 mg UNSCH PRN IV 07/09/16 16:30 (Mucinex Er) 600 mg BID PO 07/09/16 21:00 07/21/16 22:31 (Folate) 1 mg DAILY PO 07/10/16 09:00 07/22/16 09:30 (Spiriva Inh) 18 mcg DAILY INH 07/10/16 09:00 07/15/16 09:00 (Ativan) 0.5 mg Q8HR PRN PO 07/09/16 17:00 07/18/16 21:07 (TRENtal SR) 400 mg Q8HR PO 07/09/16 22:00 07/22/16 06:07 (Xifaxan) 550 mg BID PO 07/09/16 21:00 07/22/16 09:30 (Flovent Hfa 110 Mcg Inh) 1 puff BID INH 07/09/16 21:00 07/15/16 09:00 (Vitamin B1) 100 mg DAILY PO 07/10/16 09:00 07/22/16 09:30 (Heparin Inj) 5,000 units Q12HR SQ 5/20/17 21:00 Hold 07/19/16 08:24 (Robitussin Dm 200-20 Mg/10 ml Liq) 10 ml Q4H PRN PO 07/11/16 03:30 07/11/16 03:47 (Theragran) 1 tab DAILY PO 07/12/16 09:00 07/22/16 09:30 (SoluMEDROL INJ) 40 mg Q12H IV PUSH 07/14/16 18:00 07/22/16 06:07 (D50w (Vial) Inj) 50 ml UNSCH PRN IV 07/14/16 08:45 (Glucagon Inj) 1 mg UNSCH PRN OTHER 07/14/16 08:45 (NovoLIN R SUPPLEMENTAL SCALE) 1 Q6H SQ 07/14/16 09:00 07/22/16 10:06 Acetaminophen/ Hydrocodone Bitart 1 tab 1 tab Q6H PRN PO 07/14/16 19:00 07/15/16 10:28 Propofol 100 ml @ 0 mls/hr TITRATE IV 07/15/16 10:45 07/22/16 09:31 (fentaNYL DRIP) 250 ml @ 0 mls/hr TITRATE IV 07/15/16 19:45 07/22/16 09:26 (Peridex 0.12% Liq) 15 ml BID@08,20 MT 07/16/16 08:00 07/22/16 09:27 Azithromycin 250 mg 250 mg DAILY PO 07/18/16 09:00 07/22/16 09:30 (NS 1000 ml Inj) 1,000 ml @ 0 mls/hr Q0M PRN IV 07/19/16 11:20 Heparin Sodium (Porcine) 8000 units 8,000 units UNSCH PRN IVF 07/19/16 11:30 Sodium Chloride 1,000 ml @ 200 mls/hr Q5H PRN IV 07/19/16 11:20 (NS 1000 ml Inj) 1,000 ml @ 0 mls/hr Q0M PRN IV 07/19/16 11:20 (Mannitol Inj) 12.5 gm UNSCH PRN IV 07/19/16 11:30 (Albumin 25% Inj) 25 gm UNSCH PRN IV 07/19/16 11:30 (NS Flush) 5 ml UNSCH PRN IV FLUSH 07/19/16 11:30 (Heparin Inj) UNSCH PRN .XX 07/19/16 11:30 07/21/16 16:04 (Gentamicin (Dialysis) Inj) 20 mg UNSCH PRN IV 07/19/16 11:30 07/21/16 16:04 (Zofran Inj) 4 mg UNSCH PRN IV 07/19/16 11:30 (Tylenol) 650 mg UNSCH PRN PO 07/19/16 11:30 (Benadryl) 25 mg UNSCH PRN PO 07/19/16 11:30 (Nitrostat Sl) 0.4 mg UNSCH PRN SL 07/19/16 11:30 (Catapres) 0.1 mg UNSCH PRN PO 07/19/16 11:30 (Epogen Inj) 10,000 units UNSCH PRN IV 07/19/16 11:30 07/20/16 10:51 (Gelfoam 12 Mm/7 Mm Top) 1 foam UNSCH PRN TOP 07/19/16 11:30 (Tears Naturale Opth Soln) 1 drop Q8HR EACH EYE 07/21/16 14:00 (Protonix Inj) 40 mg Q12HR IV PUSH 07/21/16 21:00 07/22/16 09:30 Terbutaline Sulfate 1 mg 1 mg UNSCH PRN SQ 07/21/16 14:00 Phenylephrine HCl 160 mg/Dextrose 500 ml @ 0 mls/hr TITRATE IV 07/21/16 14:00 07/21/16 14:34 (Versed Inj) 100 ml @ 0 mls/hr TITRATE IV 07/21/16 14:00 07/22/16 06:08 (NS Flush) DAILY IVF 07/21/16 14:45 07/22/16 09:30 (NS Flush) UNSCH PRN IVF 07/21/16 14:45 Metronidazole 500 mg 500 mg Q8HR PO 07/21/16 22:00 07/22/16 06:07 (Mycamine Inj/NS Inj) 100 ml @ 100 mls/hr Q24H IV 07/21/16 16:00 07/21/16 15:52 Physical Exam General Appearance: Well Developed Eyes Eye Exam: Pupils Equal Neck Neck Exam: Neck Supple Pulmonary Resp Exam: Decreased Bases Cardiology CV Exam: Tachycardia Gastrointestinal/Abdomen GI Exam: Soft, Distended Extremeties Extremities Exam: Pitting Edema, Dependent Edema Assessment/Plan Problem List: (1) Acute renal failure Plan: Patient has liver dysfunction along with that she has pneumonia, she is third spacing and has low albumin on dialysis hemodialysis done yesterday 4 L off next on Monday am ARDS FiO2 40% (2) Hyperkalemia Plan: resolved (3) Pneumonia Plan: She is on antibiotics and infectious disease is following Patient is on ventilator (4) Ascites Plan: Due to alcoholic hepatitis Problem Qualifiers (1) Acute renal failure: Qualified Code: N17.9 - Acute renal failure, unspecified acute renal failure type (2) Pneumonia: Qualified Code: J18.9 - Pneumonia of both lungs due to infectious organism, unspecified part of lung Eve Tariq MD Jul 22, 2016 11:19
--- NOTE | 2016-07-22 11:30 | HHI.CCPN ---
Subjective Remarks/Hospital Course The patient is a 31-year-old female with past medical history of ETOH hepatitis , ascites and cirrhosis of the liver with ETOH use who was admitted to [facility] on July 09 for healthcare-associated pneumonia. She had a chest x-ray on July 09 which showed diffuse consolidation and bilateral pleural effusions, likely representing pulmonary edema. The patient was recently discharged from the hospital after she was admitted back on June 10. On her prior admission she had an echocardiogram on June 22 which showed an EF of 50-55%. The patient also had paracentesis performed on June 30 with removal of 1.8 liters of ascitic fluid and she had a thoracentesis performed on the right on June 16 with removal of 800 cc of transudative pleural fluid. The patient was admitted under the hospitalists service and was started on broad -spectrum antibiotics for healthcare-associated pneumonia. A [facility] was called for respiratory distress and the patient was given Lasix at approximately 2 o'clock this morning and transferred [place] [facility] Critical care medicine was consulted for respiratory distress. Her laboratory data showed worsening leukocytosis with a WBC of 25.7 from 16.2. Her BNP is 529 from 809. Ammonia level less than 10. A repeat chest x-ray showed worsening airspace process. The patient was placed on BiPAP 11/24 with 95% FIO2 and her initial saturation was 98%. When her FIO2 was weaned down she dropped her saturation and initially she refused intubation. She was just given additional Bumex 1 mg IV x1 and Solu-Medrol 80 mg IV push x1. The patient denies any nausea, vomiting or abdominal pain. 07/12 Patient was intubated yesterday for resp failure sedated with Diprivan and Fentanyl. WBC trending down. Afebrile. 07/13 Patient remains intubated and sedated with Diprivan off Fentanyl drip. s/p Right sided thoracentesis yesterday with removal 800ml pleural fluid and CT guided paracentesis with removal 4.3L. 07/14 Patient is intubated with Diprivan and Fentanyl. s/p bronch yesterday by Dr. Mckeon( small mucus plugs removed). Afebrile. 07/15 Patient s/p extubation yesterday. Placed on BIPAP overnight 11/24 with FIO2 65%. Afebrile. 07/16 Patient was reintubated yesterday for resp distress. CXR showed b/l airspace disease. Afebrile. Sedated with Diprivan and Fentanyl. 07/17 Patient is sedated with Fentanyl and intubated. Afebrile. On PRVC/AC with PEEP:10 and FIO2 50%. 07/18 Patient is sedated with Fentanyl and intubated. Renal function continue to worse with Cr: 2.96 from 2.49 with poor UO. 07/19 Patient remains sedated with Diprivan and Fentanyl. She developed ? hemoptysis and hematuria overnight 2units PRBC, 2u FFP ordered. Patient was given Vitamin K 10mg x1 and DDAVP. Hgb 6.2 this morning. Renal function is worsening with Cr: 3.47 from 2.96. On Bumex drip 0.25 mg/hr. 07/20: Tmax 99.1. No further hemoptysis noted. -2500 cc of hemodialysis yesterday. Tube feeding resume Subjective 07/21: Tmax 99.5. Hemoglobin decreased to 6.7. Transfusing 2 units and plan for hemodialysis today. Remains tachycardic with borderline systolic blood pressure. 07/22: Remains intubated sedated, on 60 g per minute of Constantine-Synephrine. Tachycardic. Hemodialysis yesterday with 4 L of fluid removed. We'll start Precedex discontinued Versed and an attempt to reduce sedation Objective Vital Signs Date Time Temp Pulse Resp B/P Pulse Ox O2 Delivery O2 Flow Rate FiO2 07/22/16 08:33 94 40 07/22/16 06:00 126 07/22/16 04:00 99.5 16 106/53 Intake and Output 07/21/16 07/21/16 07/22/16 08:00 16:00 00:00 Intake Total 477 ml 1409 ml 1213 ml Output Total 260 ml 150 ml 4000 ml Balance 217 ml 1259 ml -2787 ml Result Diagram: 07/22/16 0400 07/22/16 0400 Imaging Last Impressions Chest X-Ray 07/20/16 0000 Signed Impressions: Service Date/Time: Wednesday, July 20, 2016 13:24 - CONCLUSION: Increasing interstitial edema. Harish Chaudhary MD FACR Renal Ultrasound 07/17/16 0000 Signed Impressions: Service Date/Time: Sunday, July 17, 2016 10:58 - CONCLUSION: 1. Normal ultrasound appearance of the kidneys. There is no hydronephrosis. 2. Urinary bladder is not visualized. 3. There is free fluid within the abdomen and pelvis. Qasim Osuna MD Thoracentesis Ultrasound 07/12/16 Signed Impressions: Service Date/Time: Tuesday, July 12, 2016 10:17 - CONCLUSION: Uncomplicated ultrasound guided thoracentesis. Garret Verma MD Cyst Biopsy Asp-Paracentesis US 07/12/16 Signed Impressions: Service Date/Time: Tuesday, July 12, 2016 10:17 - CONCLUSION: Uncomplicated ultrasound guided paracentesis. Garret Verma MD Liver Ultrasound 07/11/16 Signed Impressions: Service Date/Time: Monday, July 11, 2016 10:24 - CONCLUSION: Ascites and pleural effusions. Splenomegaly. Tiny gallstone or gallbladder polyp Qasim Edwards MD Chest CT 07/11/16 Signed Impressions: Service Date/Time: Monday, July 11, 2016 22:37 - CONCLUSION: Bilateral pleural effusions, slight ascites and significant worsening of airspace consolidation in both lungs. Mert Laurent MD Objective Remarks GENERAL: 31-year-old female, appears stated age currently orotracheally intubated SKIN: Warm and dry. No rash HEAD: Normocephalic. EYES: No scleral icterus. No injection or drainage. NECK: Supple, trachea midline. No JVD or lymphadenopathy. Orally intubated CARDIOVASCULAR: Tachycardic. S1, S2 no S4 without murmur rubs. RESPIRATORY: Coarse crackles appreciated in all lung dean. GASTROINTESTINAL: Abdomen slightly protuberant, nontender. Hypoactive bowel sounds. MUSCULOSKELETAL: 2+ bilateral upper and lower extremity peripheral edema. Neuro: Sedated and intubated positive gag. Positive corneal reflex. She moves all 4 extremities spontaneously. A/P Assessment and Plan ASSESSMENT Acute respiratory failure Diffuse bilateral airspace disease. Septic shock Pleural effusions s/p Right sided thoracentesis with removal 800ml pleural fluid 07/12 Healthcare-associated pneumonia. Leukocytosis, worsening Acute kidney failure on dialysis Anemia, thrombocytopenia Elevated LFTs Cirrhosis of the liver secondary to ETOH use. History of Hypertension. Recurrent ascites s/p paracentesis performed on June 30. s/p paracentesis on 07/12 with removal 4.3L. Plan Neuro: On Fentanyl/Diprivan/Versed infusion for sedation. Daily sedation vacation when appropriate. Dc worsen and start Precedex to facilitate sedation weaning Continue thiamine, multivitamins and folic acid. on rifaximin and Trental 400 every 8..Ammonia level < 10 Pulm: On PRVC/AC RR 14, TV 500, IT:1.0, PEEP:5, FIO2 40% Continue with vent support keep sat >92%. Initiate CPAP trials mental status will not permit extubation Bronchodilators every 4 hours, solumederol 40mg Q12 ICU vent bundle. s/p CT guided thoracentesis 07/12 with removal 800ml -transudative effusion. Pleural fluid culture- NGTD Pulm is following- Dr. Mckeon s/p bronch 07/13 (small mucus plugs removed ) follow up on BAL results- NGTD. Possible need lung biopsy. Consulted CT surgery 07/21 -not a candidate for open lung biopsy per Dr. Carvajal. Ordered PEDRO, CRP and RF CV: Monitor HR and BP and maintain MAP >65 mmHg. Echo from June 22 showed an EF of 50-55%. Echo 07/15: EF 55-60%, no RWMA, mod TR. Remains on Constantine-Synephrine to keep map above 65 /renal: Monitor renal function, I's and O's, and electrolyte replacement s/p CT guided paracentesis 07/12 with removal 4.3L. Follow up on cultures- NGTD Dr. Tariq. Renal US: No hydronephrosis. -4000 cc with hemodialysis yesterday GI: On Protonix 40 mg IV twice daily. Tube feeds held overnight( Nepro with goal rate 40ml/hr) GI eval for anemia and Hemoccult positive ID: Continue abx(azithromycin), micafungin and Flagyl ID is following. Monitor for signs of infections(Fever and WBC). Rocephin discontinued 07/20 Strep pneumoniae and Legionella urinary antigen negative. Blood cultures 07/09: NGTD, sputum cx from 07/11: NGTD Follow up on BAL results-1 with yeast. 07/12: Peritoneal and pleural fluid cxs: NGTD Repeat urine and sputum cx. C Diff neg 5/21 Endo: On SSI medium scale with Accu-Chek q.6h. for glycemic control Heme: Monitor CBC, s/p 2units PRBC. Patient received Vitamin K 10mg x1 and DDAVP on 07/19, Monitor H/H post transfusion., monitor Coags/ Fibrinogen level. GI prophylaxis with Protonix 40 mg twice a day and DVT prophylaxis with SCDs, heparin subcu held. In light of hemoptysis and heme positive stools CCT 35 mins Giovani Tripp MD Jul 22, 2016 11:30
[2016-07-22] MEDS ORDERED: VANCOMYCIN 1,000 MG/NS 250 ML IV ONE ×2 (13:30)
[2016-07-22] MEDS: DEXMEDETOMIDINE INJ 200 MCG in SODIUM CHLORIDE 0.9% INJ 50 ML IV SCH ×2 (13:32→22:18)
[2016-07-22] MEDS: PHENYLEPHRINE INJ 160 MG in DEXTROSE 5% IN WATE 500 ML INJ 484 ML IV SCH ×2 (13:33)
--- NOTE | 2016-07-22 14:39 | HHI.IDPN ---
Subjective Subjective Remarks Notes reviewed D/W RN Low grade temps overnight Sedated on the vent Vascath placed 07/19 Central line placed 07/21 One of 2 BC from yesterday now with GPC in pairs and chains BP ok WBC continues to rise Got one dose Vanco yesterday; got second dose today Bronch with yeast Patient had HIV testing 07/02 - negative Antibiotics Zithromax Micafungin vanco IV Lines RIJ vascath central line Past Medical History Reviewed Allergies: Coded Allergies: No Known Allergies (Unverified , 07/09/16) Objective . Vital Signs Date Time Temp Pulse Resp B/P Pulse Ox O2 Delivery O2 Flow Rate FiO2 07/22/16 12:00 40 07/22/16 12:00 122 07/22/16 12:00 100.2 122 15 101/49 94 07/22/16 11:24 94 40 07/22/16 10:00 125 07/22/16 08:33 94 40 07/22/16 08:00 100.4 126 14 107/53 94 07/22/16 08:00 126 07/22/16 08:00 40 07/22/16 06:00 126 07/22/16 04:10 93 40 07/22/16 04:00 126 07/22/16 04:00 40 07/22/16 04:00 99.5 129 16 106/53 94 07/22/16 02:00 123 07/22/16 01:11 93 40 07/22/16 00:45 125 14 102/50 93 07/22/16 00:30 127 15 103/50 93 07/22/16 00:15 125 15 104/50 93 07/22/16 00:00 100.5 127 14 101/49 93 07/22/16 00:00 45 07/22/16 00:00 123 07/21/16 23:45 126 15 99/48 93 07/21/16 23:30 126 16 98/48 93 07/21/16 23:15 125 17 97/47 93 07/21/16 23:00 126 17 95/45 93 07/21/16 22:45 126 14 96/46 93 07/21/16 22:30 124 14 103/49 93 07/21/16 22:15 125 14 101/49 93 07/21/16 22:11 94 40 07/21/16 22:00 125 07/21/16 22:00 125 14 101/49 94 07/21/16 21:45 123 14 106/51 94 07/21/16 21:30 123 15 103/51 94 07/21/16 21:15 125 19 97/48 94 07/21/16 21:00 127 14 104/51 94 07/21/16 20:45 126 14 106/51 94 07/21/16 20:30 125 15 105/50 94 07/21/16 20:15 126 16 104/51 98 07/21/16 20:07 94 45 07/21/16 20:00 125 07/21/16 20:00 45 07/21/16 20:00 99.4 126 16 101/49 94 07/21/16 18:00 114 07/21/16 16:17 93 45 07/21/16 16:00 99.0 123 16 114/57 96 07/21/16 16:00 45 07/21/16 16:00 123 07/21/16 14:45 127 15 98/49 94 07/21/16 14:42 126 15 100/51 94 07/21/16 14:39 126 15 100/53 94 07/21/16 14:36 126 16 105/52 94 07/21/16 07/21/16 07/22/16 15:00 23:00 07:00 Intake Total 1409 ml 1213 ml 702 ml Output Total 150 ml 4000 ml 0 ml Balance 1259 ml -2787 ml 702 ml IV Total 291 ml 1006 ml 440 ml Tube Feeding 311 ml 207 ml 262 ml Packed Cells 687 ml Other 120 ml Output Urine Total 0 ml 0 ml Stool Total 150 ml 0 ml Hemodialysis 4000 ml . Laboratory Tests Test 07/21/16 07/21/16 07/22/16 04:23 18:05 04:00 White Blood Count 31.0 TH/MM3 48.2 TH/MM3 Red Blood Count 2.17 MIL/MM3 2.73 MIL/MM3 Hemoglobin 6.7 GM/DL 11.9 GM/DL 9.1 GM/DL Hematocrit 20.5 % 35.0 % 25.3 % Mean Corpuscular Volume 94.7 FL 92.9 FL Mean Corpuscular Hemoglobin 30.7 PG 33.2 PG Mean Corpuscular Hemoglobin 32.4 % 35.7 % Concent Red Cell Distribution Width 19.4 % 18.7 % Platelet Count 57 TH/MM3 57 TH/MM3 Mean Platelet Volume 11.5 FL 11.6 FL Neutrophils (%) (Auto) 93.5 % % Lymphocytes (%) (Auto) 4.0 % % Monocytes (%) (Auto) 2.0 % % Eosinophils (%) (Auto) 0.2 % % Basophils (%) (Auto) 0.3 % % Neutrophils # (Auto) 29.0 TH/MM3 TH/MM3 Lymphocytes # (Auto) 1.2 TH/MM3 TH/MM3 Monocytes # (Auto) 0.6 TH/MM3 TH/MM3 Eosinophils # (Auto) 0.0 TH/MM3 TH/MM3 Basophils # (Auto) 0.1 TH/MM3 TH/MM3 CBC Comment AUTO DIFF AUTO DIFF Differential Total Cells 100 100 Counted Neutrophils % (Manual) 69 % 72 % Band Neutrophils % 16 % 14 % Lymphocytes % 7 % 5 % Monocytes % 3 % Neutrophils # (Manual) 27.9 TH/MM3 45.8 TH/MM3 Metamyelocytes 1 % 8 % Myelocytes 4 % Nucleated Red Blood Cells 2 /100 WBC 12 /100 WBC Differential Comment FINAL DIFF FINAL DIFF MANUAL MANUAL Platelet Estimate LOW LOW Platelet Morphology Comment ENLARGED NORMAL Blood Smear Pathologist Review Haptoglobin 206 MG/DL Promyelocytes 1 % Laboratory Tests Test 07/21/16 07/21/16 07/22/16 04:23 18:05 04:00 Sodium Level 139 MEQ/L 139 MEQ/L Potassium Level 4.0 MEQ/L 4.3 MEQ/L Chloride Level 102 MEQ/L 101 MEQ/L Carbon Dioxide Level 24.6 MEQ/L 24.4 MEQ/L Anion Gap 12 MEQ/L 14 MEQ/L Blood Urea Nitrogen 110 MG/DL 92 MG/DL Creatinine 3.04 MG/DL 2.69 MG/DL Estimat Glomerular Filtration 18 ML/MIN 20 ML/MIN Rate Random Glucose 279 MG/DL 346 MG/DL Calcium Level 8.8 MG/DL 7.8 MG/DL Phosphorus Level 3.6 MG/DL 2.8 MG/DL Albumin 2.8 GM/DL 2.5 GM/DL Lactate Dehydrogenase 674 U/L C-Reactive Protein 5.00 MG/DL Procalcitonin 7.30 ng/mL Microbiology Date/Time Procedure Status Source Growth 07/21/16 18:05 Aerobic Blood Culture - Preliminary Resulted Blood Line Gram Positive Cocci 07/21/16 18:05 Anaerobic Blood Culture - Preliminary Resulted Gram Positive Cocci 07/21/16 18:55 Aerobic Blood Culture - Preliminary Resulted Blood Peripheral NO GROWTH IN 1 DAY 07/21/16 18:55 Anaerobic Blood Culture - Preliminary Resulted Blood Peripheral NO GROWTH IN 1 DAY 07/22/16 13:30 Gram Stain Received Sputum Endotracheal Pending 07/22/16 13:30 Sputum Culture Received Sputum Endotracheal Pending 07/22/16 13:30 Urine Culture Received Urine Catheterized Urine Pending Imaging Chest X-Ray 07/22/16 0600 Signed Impressions: Service Date/Time: Friday, July 22, 2016 05:20 - CONCLUSION: 1. Patchy alveolar disease characteristic of edema or pneumonia. There has been no significant change when compared to the prior exam. Jamaal Eastman MD Chest X-Ray 07/21/16 1431 Signed Impressions: Service Date/Time: July 14:46 - CONCLUSION: 1. Endotracheal tube tip is at the naldo and should be retracted. 2. The recently placed left internal jugular central line distal tip is in the SVC. No pneumothorax is visualized. 3. Stable bilateral severe air space consolidation. Qasim Osuna MD Chest X-Ray 07/20/16 0000 Signed Impressions: Service Date/Time: Wednesday, July 20, 2016 13:24 - CONCLUSION: Increasing interstitial edema. Harish Chaudhary MD FACR Last Impressions Chest X-Ray 07/18/16 0000 Signed Impressions: Service Date/Time: Monday, July 18, 2016 10:42 - CONCLUSION: Stable chest x- ray with relatively diffuse bilateral airspace consolidation, left greater than right. Qasim Osuna MD Renal Ultrasound 07/17/16 0000 Signed Impressions: Service Date/Time: Sunday, July 17, 2016 10:58 - CONCLUSION: 1. Normal ultrasound appearance of the kidneys. There is no hydronephrosis. 2. Urinary bladder is not visualized. 3. There is free fluid within the abdomen and pelvis. Qasim Osuna MD Thoracentesis Ultrasound 07/12/16 0000 Signed Impressions: Service Date/Time: Tuesday, July 12, 2016 10:17 - CONCLUSION: Uncomplicated ultrasound guided thoracentesis. Garret Verma MD Cyst Biopsy Asp-Paracentesis US 07/12/16 0000 Signed Impressions: Service Date/Time: Tuesday, July 12, 2016 10:17 - CONCLUSION: Uncomplicated ultrasound guided paracentesis. Garret Verma MD Liver Ultrasound 07/11/16 0000 Signed Impressions: Service Date/Time: Monday, July 11, 2016 10:24 - CONCLUSION: Ascites and pleural effusions. Splenomegaly. Tiny gallstone or gallbladder polyp Qasim Edwards MD Chest CT 07/11/16 0000 Signed Impressions: Service Date/Time: Monday, July 11, 2016 22:37 - CONCLUSION: Bilateral pleural effusions, slight ascites and significant worsening of airspace consolidation in both lungs. Mert Laurent MD Physical Exam GENERAL: on the vent, sedated SKIN: Warm and dry. Has jaundice. Has spider angiomata in her upper chest HEAD: Atraumatic. Normocephalic. No temporal wasting, or tenderness. EYES: [place] conjunctiva. No petechia or hemorrhage. Has scleral icterus. No injection or drainage. EARS, NOSE AND THROAT: Nose without bleeding or purulent nasal discharge. She is orally intubated. CARDIOVASCULAR: Regular rate and rhythm. No murmurs, rubs or gallops heard CHEST: Diffuse rhonchi ABDOMEN: Soft, mildly distended, bowel sounds present and normoactive, no tenderness, no guarding or rebound. EXTREMITIES: No clubbing, or cyanosis. Has bilateral at least 3+ pitting edema. Both feet well perfused and warm. NEUROLOGICAL: Sedated PSYCH: Unable to assess : Arevalo in place, minimal brownish urine in arevalo bag LINE: No evidence of infection Assessment & Plan Remarks IMPRESSION Bilateral infiltrates, worsening in very acute progression, likely more inflammatory, ?ARDS, ?other inflammatory - her CXR has changed very quickly - sputum negative - pneumonia vs pneumonitis 2/2 non infectious etiology Respiratory failure, reintubated 07/15 ETOH hepatitis Leukocytosis, up, worsening - ?new infection - has one (+) BC with GPC - at risk for fungal, since has been on steroids - has diarrhea, C diff negative ARF , no e/o intertitial nephritis (neg urine eos) Diarrhea, abx associated Thrombocytopenia, worsening, DIC, sepsis RECOMMENDATION Repeat 2 BC today Continue Micafungin Vanco level in AM Add Cubicin while BC pending, to cover for VRE - check CPK Open lung biopsy if no improvement and still no diagnosis - once feasible from resp standpoint On steroids Also on Flagyl Follow temps Follow CBC Monitor progress requesting to speak with palliative med D/W RN Dr Omar Rivas covering this weekend D/W Whit Magaña MD Jul 22, 2016 14:39
[2016-07-22] MEDS: MICAFUNGIN INJ 100 MG in SODIUM CHLORIDE 0.9% INJ 100 ML IV SCH (15:24)
[2016-07-22] MEDS: FLUTICASONE PROPIONATE 110 MCG/ACT 12 GM INHALER INH SCH ×3 (15:25→21:00)
[2016-07-22] MEDS: ARTIFICIAL TEARS OPTH SOLN 15 ML BTL EACH EYE SCH ×3 (15:25→22:18)
[2016-07-22] MEDS: TIOTROPIUM BROMIDE 18 MCG INH INH SCH (15:25)
[2016-07-22] MEDS: DOCUSATE SODIUM 100 MG CAP PO SCH (17:00)
--- NOTE | 2016-07-22 18:18 | HHI.PR ---
Subjective Remarks 31 YOWFw ith VDRF,Lung infilt,Pl effusion Had bronch Reintubated 07/14 On ACV Sedated with Fentanyl Worsening renal functions had HD CXR slight worsening infilt On Neosynepi drip Objective Vital Signs Vital Signs Date Time Temp Pulse Resp B/P Pulse Ox O2 Delivery O2 Flow Rate FiO2 07/22/16 18:00 118 07/22/16 17:03 96 40 07/22/16 16:00 99.9 111 18 114/55 95 07/22/16 16:00 111 07/22/16 16:00 40 07/22/16 14:00 118 07/22/16 12:00 40 07/22/16 12:00 122 07/22/16 12:00 100.2 122 15 101/49 94 07/22/16 11:24 94 40 07/22/16 10:00 125 07/22/16 08:33 94 40 07/22/16 08:00 100.4 126 14 107/53 94 07/22/16 08:00 126 07/22/16 08:00 40 07/22/16 06:00 126 07/22/16 04:10 93 40 07/22/16 04:00 126 07/22/16 04:00 40 07/22/16 04:00 99.5 129 16 106/53 94 07/22/16 02:00 123 07/22/16 01:11 93 40 07/22/16 00:45 125 14 102/50 93 07/22/16 00:30 127 15 103/50 93 07/22/16 00:15 125 15 104/50 93 07/22/16 00:00 100.5 127 14 101/49 93 07/22/16 00:00 45 07/22/16 00:00 123 07/21/16 23:45 126 15 99/48 93 07/21/16 23:30 126 16 98/48 93 07/21/16 23:15 125 17 97/47 93 07/21/16 23:00 126 17 95/45 93 07/21/16 22:45 126 14 96/46 93 07/21/16 22:30 124 14 103/49 93 07/21/16 22:15 125 14 101/49 93 07/21/16 22:11 94 40 07/21/16 22:00 125 07/21/16 22:00 125 14 101/49 94 07/21/16 21:45 123 14 106/51 94 07/21/16 21:30 123 15 103/51 94 07/21/16 21:15 125 19 97/48 94 07/21/16 21:00 127 14 104/51 94 07/21/16 20:45 126 14 106/51 94 07/21/16 20:30 125 15 105/50 94 07/21/16 20:15 126 16 104/51 98 07/21/16 20:07 94 45 07/21/16 20:00 125 07/21/16 20:00 45 07/21/16 20:00 99.4 126 16 101/49 94 I/O 07/21/16 07/21/16 07/21/16 07/22/16 07/22/16 07/22/16 07:00 15:00 23:00 07:00 15:00 23:00 Intake Total 477 ml 1409 ml 1213 ml 702 ml 1206 ml Output Total 260 ml 150 ml 4000 ml 0 ml 40 ml Balance 217 ml 1259 ml -2787 ml 702 ml 1166 ml IV Total 318 ml 291 ml 1006 ml 440 ml 855 ml Tube Feeding 159 ml 311 ml 207 ml 262 ml 351 ml Packed Cells 687 ml Other 120 ml Output Urine Total 10 ml 0 ml 0 ml 40 ml Stool Total 250 ml 150 ml 0 ml Hemodialysis 4000 ml # Bowel Movements 1 Result Diagram: 07/22/16 0400 07/22/16 0400 Objective Remarks GENERAL: MBMN WF with RF, extubated on BIPAP SKIN: Warm and dry. HEAD: Normocephalic. EYES: No scleral icterus. No injection or drainage. NECK: Supple, trachea midline. No JVD or lymphadenopathy. CARDIOVASCULAR: Regular rate and rhythm without murmurs, gallops, or rubs. RESPIRATORY: Breath sounds equal bilaterally. No accessory muscle use. Bilat rales GASTROINTESTINAL: Abdomen soft, non-tender, nondistended. MUSCULOSKELETAL: No cyanosis, ++ edema. BACK: Nontender without obvious deformity. No CVA tenderness. A/P Assessment and Plan VDRF, Reintubated 07/15 Bilat lung infilt Pleural effusion Ascitis hypoxia PLAN: vent support Diurease Cont Abx per ID Wean 02 to keep sat >90% IV Solumedrol monitor renal functions. monitor renal Functions Tomi Mckeon MD Jul 22, 2016 18:18
[2016-07-22] MEDS: DAPTOmycin INJ 500 MG in SODIUM CHLORIDE 0.9% INJ 100 ML IV SCH (18:29)
[2016-07-22 20:03] LABS: CKMB 4.9 NG/ML (0.5-3.6)
[2016-07-23] VITALS (35 sets, daily range): BP systolic 101–118; BP diastolic 49–60; PULSE 97–122; RESP 14–22; TEMP 98.2–99.3; O2SAT 92–100
[2016-07-23] MEDS: DEXMEDETOMIDINE INJ 200 MCG in SODIUM CHLORIDE 0.9% INJ 50 ML IV SCH ×3 (03:18→18:12)
[2016-07-23] MEDS: PROPOFOL 1000 MG/100 ML INJ 100 ML IV SCH (03:19)
[2016-07-23] MEDS: RESP: ALBUTEROL 2.5 MG/IPRATROPIUM 0.5 MG NEB (SCH) NEB ×4 (04:24→20:13)
[2016-07-23 04:43] LABS: AUTOMATED NEUTROPHIL # 42.4 TH/MM3 (1.8-7.7); BASOPHIL # 0.1 TH/MM3 (0-0.2); BASOPHIL % 0.3 % (0.0-2.0); HEMATOCRIT 23.5 % (35.0-46.0); LYMPH % 1.9 % (9.0-44.0); LYMPHOCYTE # 0.8 TH/MM3 (1.0-4.8); MONO % 1.7 % (0.0-8.0); NEUT % 96.1 % (16.0-70.0); PLATELET COUNT 55 TH/MM3 (150-450); RED CELL DISTRIBUTION WIDTH 18.5 % (11.6-17.2); WHITE BLOOD COUNT 44.1 TH/MM3 (4.0-11.0)
[2016-07-23 04:47] LABS: HEMO FLAGS AUTO DIFF
[2016-07-23] MEDS: INSULIN NovoLIN REGULAR SUPPLEMENTAL SCALE SQ SCH ×4 (04:50→20:54)
[2016-07-23] MEDS: fentaNYL 2,500 MCG/NS 250 ML IV SCH (04:51)
[2016-07-23 05:00] LABS: ALKALINE PHOSPHATASE 157 U/L (45-117); ALT (GPT) 89 U/L (10-53); ANION GAP 16 MEQ/L (5-15); AST (GOT) 125 U/L (15-37); BICARBONATE 20.1 MEQ/L (21.0-32.0); BLOOD UREA NITROGEN 126 MG/DL (7-18); CHLORIDE 100 MEQ/L (98-107); GLOMERULAR FILTRATION RATE 16 ML/MIN (>89); POTASSIUM 4.9 MEQ/L (3.5-5.1); SODIUM (NA) 136 MEQ/L (136-145)
[2016-07-23 05:39] LABS: BANDS 8 % (0-6); CORRECTED NUCLEATED RBC 2 /100 WBC (0-0); METAMYELOCYTES 1 % (0-1); MYELOCYTES 3 % (0-0); NEUTROPHIL # MANUAL DIFF 43.7 TH/MM3 (1.8-7.7); POLYS (SEG NEUTROPHILS) 87 % (16-70); WBC DIFF SAMPLE 100
[2016-07-23 05:40] LABS: PLATELET ESTIMATE SMEAR LOW (NORMAL); PLATELET MORPHOLOGY NORMAL (NORMAL); SCAN/DIFF FINAL DIFF MANUAL; STOMATOCYTES 1+ (NORMAL)
[2016-07-23] MEDS: PENTOXIFYLLINE 400 MG CONTROLLED RELEASE TAB PO SCH ×3 (06:13→20:40)
[2016-07-23] MEDS: ARTIFICIAL TEARS OPTH SOLN 15 ML BTL EACH EYE SCH ×3 (06:13→21:29)
[2016-07-23] MEDS: methylPREDNISolone SOD SUCC 40 MG/1 ML VIAL IV PUSH SCH ×2 (06:13→17:03)
[2016-07-23] MEDS: metroNIDAZOLE 500 MG TAB PO SCH ×3 (06:13→20:40)
[2016-07-23] MEDS: CHLORHEXIDINE 0.12% (ORAL KIT) 15 ML CUP MT SCH ×2 (08:00→20:00)
[2016-07-23] MEDS: ALBUMIN HUMAN 25% 25 GM/100 ML BAGP IV PRN ×2 (08:11→08:13)
[2016-07-23] MEDS: EPOETIN ALFA 10,000 UNITS/ML VIAL IV PRN (08:12)
[2016-07-23] MEDS: HEPARIN SODIUM - IV 10,000 UNITS/10 ML VIAL PRN (08:12)
[2016-07-23] MEDS: GENTAMICIN SULFATE (DIALYSIS USE ONLY) 20 MG/2 ML VIAL IV PRN (08:13)
[2016-07-23] MEDS: TIOTROPIUM BROMIDE 18 MCG INH INH SCH (08:41)
[2016-07-23] MEDS: FOLIC ACID 1 MG TAB PO SCH (08:42)
[2016-07-23] MEDS: MULTIVITAMIN TAB PO SCH (08:42)
[2016-07-23] MEDS: THIAMINE HCL 100 MG TAB PO SCH (08:42)
[2016-07-23] MEDS: SODIUM CHLORIDE 0.9% FLUSH 10 ML FLUSH IVF SCH (08:42)
[2016-07-23] MEDS: SODIUM CHLORIDE 0.9% FLUSH 10 ML FLUSH IV FLUSH SCH ×2 (08:42→20:40)
[2016-07-23] MEDS: guaiFENesin E.R. 600 MG TAB PO SCH ×2 (08:42→20:40)
[2016-07-23] MEDS: RIFAXIMIN 550 MG TAB PO SCH ×2 (08:42→20:40)
[2016-07-23] MEDS: FLUTICASONE PROPIONATE 110 MCG/ACT 12 GM INHALER INH SCH ×2 (08:42→21:00)
[2016-07-23] MEDS: PANTOPRAZOLE SODIUM 40 MG VIAL IV PUSH SCH ×2 (08:43→20:40)
--- NOTE | 2016-07-23 11:57 | HHI.GIFU ---
Subjective Remarks Patient is sedated on a vent. Nurse by bed side, states patient is having dark stools but no signs of bleeding or melena. Tolerating TF ok, cont to be unstable for endoscopy (Praveena Seals) Objective Vitals I&O Vital Signs Date Time Temp Pulse Resp B/P Pulse Ox O2 Delivery O2 Flow Rate FiO2 07/23/16 11:23 92 30 07/23/16 10:00 104 07/23/16 08:19 98 30 07/23/16 08:00 110 07/23/16 08:00 40 07/23/16 06:00 122 07/23/16 04:45 119 14 110/53 98 07/23/16 04:30 117 14 114/55 98 07/23/16 04:24 97 40 07/23/16 04:15 117 14 111/56 98 07/23/16 04:00 40 07/23/16 04:00 122 07/23/16 04:00 114 14 111/56 98 07/23/16 03:45 113 14 111/56 98 07/23/16 03:30 113 14 105/52 98 07/23/16 03:15 116 14 112/54 99 07/23/16 03:14 116 14 113/54 99 07/23/16 03:00 113 22 07/23/16 02:15 116 14 101/49 96 07/23/16 02:00 117 07/23/16 02:00 118 15 110/56 97 07/23/16 01:45 118 16 109/56 97 07/23/16 01:30 118 15 109/55 97 07/23/16 01:15 121 17 107/53 97 07/23/16 01:00 121 15 108/53 97 07/23/16 00:45 121 15 107/53 97 07/23/16 00:30 121 15 108/54 96 07/23/16 00:21 96 40 07/23/16 00:15 118 14 105/53 96 07/23/16 00:00 120 14 110/53 96 07/23/16 00:00 99.3 122 14 108/54 97 07/23/16 00:00 40 07/23/16 00:00 120 07/22/16 22:00 100 07/22/16 20:27 96 40 07/22/16 20:00 99.6 127 14 114/54 96 07/22/16 20:00 122 07/22/16 20:00 40 07/22/16 18:00 118 07/22/16 17:03 96 40 07/22/16 16:00 99.9 111 18 114/55 95 07/22/16 16:00 111 07/22/16 16:00 40 07/22/16 14:00 118 07/22/16 12:00 40 07/22/16 12:00 122 07/22/16 12:00 100.2 122 15 101/49 94 I/O 07/22/16 07/22/16 07/22/16 07/23/16 07/23/16 07/23/16 07:00 15:00 23:00 07:00 15:00 23:00 Intake Total 702 ml 1206 ml 864 ml 594 ml Output Total 0 ml 40 ml 0 ml 3700 ml Balance 702 ml 1166 ml 864 ml 594 ml -3700 ml IV Total 440 ml 855 ml 598 ml 357 ml Tube Feeding 262 ml 351 ml 266 ml Tube Irrigant 237 ml Output Urine Total 0 ml 40 ml 0 ml Hemodialysis 3700 ml Laboratory Laboratory Tests Test 07/22/16 07/23/16 18:52 04:00 Total Creatine Kinase 592 Creatine Kinase MB 4.9 Creatine Kinase MB % 0.8 White Blood Count 44.1 Red Blood Count 2.50 Hemoglobin 7.8 Hematocrit 23.5 Mean Corpuscular Volume 94.0 Mean Corpuscular Hemoglobin 31.0 Mean Corpuscular Hemoglobin 33.0 Concent Red Cell Distribution Width 18.5 Platelet Count 55 Mean Platelet Volume 12.0 Neutrophils (%) (Auto) 96.1 Lymphocytes (%) (Auto) 1.9 Monocytes (%) (Auto) 1.7 Eosinophils (%) (Auto) 0.0 Basophils (%) (Auto) 0.3 Neutrophils # (Auto) 42.4 Lymphocytes # (Auto) 0.8 Monocytes # (Auto) 0.7 Eosinophils # (Auto) 0.0 Basophils # (Auto) 0.1 CBC Comment AUTO DIFF Differential Total Cells 100 Counted Neutrophils % (Manual) 87 Band Neutrophils % 8 Lymphocytes % 1 Neutrophils # (Manual) 43.7 Metamyelocytes 1 Myelocytes 3 Nucleated Red Blood Cells 2 Differential Comment FINAL DIFF MANUAL Platelet Estimate LOW Platelet Morphology Comment NORMAL Stomatocytes 1+ Sodium Level 136 Potassium Level 4.9 Chloride Level 100 Carbon Dioxide Level 20.1 Anion Gap 16 Blood Urea Nitrogen 126 Creatinine 3.34 Estimat Glomerular Filtration 16 Rate Random Glucose 322 Calcium Level 8.0 Phosphorus Level 3.9 Total Bilirubin 2.0 Aspartate Amino Transf 125 (AST/SGOT) Alanine Aminotransferase 89 (ALT/SGPT) Alkaline Phosphatase 157 Total Protein 4.9 Albumin 2.4 Random Vancomycin Level 32.9 Date/Time Procedure Status Source Growth 07/22/16 18:20 Aerobic Blood Culture - Preliminary Resulted Blood Line NO GROWTH IN 1 DAY 07/22/16 18:20 Anaerobic Blood Culture - Preliminary Resulted Blood Line NO GROWTH IN 1 DAY 07/22/16 13:30 Urine Culture - Preliminary Resulted Urine Catheterized Urine Group D Enterococcus 07/22/16 13:30 Gram Stain - Final Resulted Sputum Endotracheal 07/22/16 13:30 Sputum Culture - Preliminary Resulted Sputum Endotracheal IMMATURE GROWTH - REINCUBATE 07/18/16 17:30 Stool Occult Blood (AMADEO) - Final Complete Stool Stool HEMOCCULT POSITIVE Imaging Last Impressions Chest X-Ray 07/22/16 0600 Signed Impressions: Service Date/Time: Friday, July 22, 2016 05:20 - CONCLUSION: 1. Patchy alveolar disease characteristic of edema or pneumonia. There has been no significant change when compared to the prior exam. Jamaal Eastman MD Renal Ultrasound 07/17/16 0000 Signed Impressions: Service Date/Time: Sunday, July 17, 2016 10:58 - CONCLUSION: 1. Normal ultrasound appearance of the kidneys. There is no hydronephrosis. 2. Urinary bladder is not visualized. 3. There is free fluid within the abdomen and pelvis. Qasim Osuna MD Thoracentesis Ultrasound 07/12/16 0000 Signed Impressions: Service Date/Time: Tuesday, July 12, 2016 10:17 - CONCLUSION: Uncomplicated ultrasound guided thoracentesis. Garret Verma MD Cyst Biopsy Asp-Paracentesis US 07/12/16 0000 Signed Impressions: Service Date/Time: Tuesday, July 12, 2016 10:17 - CONCLUSION: Uncomplicated ultrasound guided paracentesis. Garret Verma MD Liver Ultrasound 07/11/16 0000 Signed Impressions: Service Date/Time: Monday, July 11, 2016 10:24 - CONCLUSION: Ascites and pleural effusions. Splenomegaly. Tiny gallstone or gallbladder polyp Qasim Edwards MD Chest CT 07/11/16 0000 Signed Impressions: Service Date/Time: Monday, July 11, 2016 22:37 - CONCLUSION: Bilateral pleural effusions, slight ascites and significant worsening of airspace consolidation in both lungs. Mert Laurent MD Physical Exam HEENT: normocephalic; atraumatic; no jaundice. NECK: Neck is supple, no JVD, no lymphadenopathy. CHEST: Coarse crackles in all lung dean CARDIAC: tachycardiac. ABDOMEN: Soft, nondistended, nontender; no hepatosplenomegaly; bowel sounds are present in all four quadrants. EXTREMITIES: No clubbing, cyanosis, 2+edema. SKIN: Normal; no rash; no jaundice. 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 Hgb 7.8 No melena reported by nurse, states dark but no signs of bleeding. s/p 2 x FFP, 2 x RBC - thrombocytopenia - PLT 57 - alcoholic cirrhosis - pt heavy drinker. prev liver w/u neg for hepatitis, autoimmune cause of liver dz - leukocytosis - WBC 44.1 ID following. - Acute renal failure- s/p hemodialysis, nephrology on the case PLAN - EGD when stable - Monitor hh - Transfuse as needed - further recommendations to follow This pt seen by myself and Dr Oconnor and this note is written on his behalf (Praveena Seals) Physician Comments Seen and examined with Praveena plan as above, will follow up with you for further management. (Sudhakar Oconnor MD) Praveena Seals Jul 23, 2016 11:57 Sudhakar Oconnor MD Jul 23, 2016 17:53
--- NOTE | 2016-07-23 11:59 | HHI.CCPN ---
Subjective Remarks/Hospital Course The patient is a 31-year-old female with past medical history of ETOH hepatitis , ascites and cirrhosis of the liver with ETOH use who was admitted to [facility] on July 09 for healthcare-associated pneumonia. She had a chest x-ray on July 09 which showed diffuse consolidation and bilateral pleural effusions, likely representing pulmonary edema. The patient was recently discharged from the hospital after she was admitted back on June 10. On her prior admission she had an echocardiogram on June 22 which showed an EF of 50-55%. The patient also had paracentesis performed on June 30 with removal of 1.8 liters of ascitic fluid and she had a thoracentesis performed on the right on June 16 with removal of 800 cc of transudative pleural fluid. The patient was admitted under the hospitalists service and was started on broad -spectrum antibiotics for healthcare-associated pneumonia. A HaliCAT was called for respiratory distress and the patient was given Lasix at approximately 2 o'clock this morning and transferred to [facility]. Critical care medicine was consulted for respiratory distress. Her laboratory data showed worsening leukocytosis with a WBC of 25.7 from 16.2. Her BNP is 529 from 809. Ammonia level less than 10. A repeat chest x-ray showed worsening airspace process. The patient was placed on BiPAP 11/24 with 95% FIO2 and her initial saturation was 98%. When her FIO2 was weaned down she dropped her saturation and initially she refused intubation. She was just given additional Bumex 1 mg IV x1 and Solu-Medrol 80 mg IV push x1. The patient denies any nausea, vomiting or abdominal pain. 07/12 Patient was intubated yesterday for resp failure sedated with Diprivan and Fentanyl. WBC trending down. Afebrile. 07/13 Patient remains intubated and sedated with Diprivan off Fentanyl drip. s/p Right sided thoracentesis yesterday with removal 800ml pleural fluid and CT guided paracentesis with removal 4.3L. 07/14 Patient is intubated with Diprivan and Fentanyl. s/p bronch yesterday by Dr. Mckeon( small mucus plugs removed). Afebrile. 07/15 Patient s/p extubation yesterday. Placed on BIPAP overnight 11/24 with FIO2 65%. Afebrile. 07/16 Patient was reintubated yesterday for resp distress. CXR showed b/l airspace disease. Afebrile. Sedated with Diprivan and Fentanyl. 07/17 Patient is sedated with Fentanyl and intubated. Afebrile. On PRVC/AC with PEEP:10 and FIO2 50%. 07/18 Patient is sedated with Fentanyl and intubated. Renal function continue to worse with Cr: 2.96 from 2.49 with poor UO. 07/19 Patient remains sedated with Diprivan and Fentanyl. She developed ? hemoptysis and hematuria overnight 2units PRBC, 2u FFP ordered. Patient was given Vitamin K 10mg x1 and DDAVP. Hgb 6.2 this morning. Renal function is worsening with Cr: 3.47 from 2.96. On Bumex drip 0.25 mg/hr. 07/20: Tmax 99.1. No further hemoptysis noted. -2500 cc of hemodialysis yesterday. Tube feeding resume Subjective 07/21: Tmax 99.5. Hemoglobin decreased to 6.7. Transfusing 2 units and plan for hemodialysis today. Remains tachycardic with borderline systolic blood pressure. 07/22: Remains intubated sedated, on 60 g per minute of Constantine-Synephrine. Tachycardic. Hemodialysis yesterday with 4 L of fluid removed. We'll start Precedex discontinued Versed and an attempt to reduce sedation 07/23: Remains intubated, remains on 60 mcg/min of constantine. Blood cx from 07/21 VRE. Urine cx 07/22 Group D enterococcus. Currently receiving daptomycin to cover VRE. Central line was replaced 07/21/16, will remove RIJ HD catheter placed on Objective Vital Signs Date Time Temp Pulse Resp B/P Pulse Ox O2 Delivery O2 Flow Rate FiO2 07/23/16 11:23 92 30 07/23/16 10:00 104 07/23/16 04:45 14 110/53 07/23/16 00:00 99.3 Intake and Output 07/22/16 07/22/16 07/23/16 08:00 16:00 00:00 Intake Total 702 ml 1206 ml 864 ml Output Total 0 ml 40 ml 0 ml Balance 702 ml 1166 ml 864 ml Result Diagram: 07/23/16 0400 07/23/16 0400 Imaging Last Impressions Chest X-Ray 07/20/16 Signed Impressions: Service Date/Time: Wednesday, July 20, 2016 13:24 - CONCLUSION: Increasing interstitial edema. Harish Chaudhary MD FACR Renal Ultrasound 07/17/16 0000 Signed Impressions: Service Date/Time: Sunday, July 17, 2016 10:58 - CONCLUSION: 1. Normal ultrasound appearance of the kidneys. There is no hydronephrosis. 2. Urinary bladder is not visualized. 3. There is free fluid within the abdomen and pelvis. Qasim Osuna MD Thoracentesis Ultrasound 07/12/16 0000 Signed Impressions: Service Date/Time: Tuesday, July 12, 2016 10:17 - CONCLUSION: Uncomplicated ultrasound guided thoracentesis. Garret Verma MD Cyst Biopsy Asp-Paracentesis US 07/12/16 Signed Impressions: Service Date/Time: Tuesday, July 12, 2016 10:17 - CONCLUSION: Uncomplicated ultrasound guided paracentesis. Garret Verma MD Liver Ultrasound 07/11/16 Signed Impressions: Service Date/Time: Monday, July 11, 2016 10:24 - CONCLUSION: Ascites and pleural effusions. Splenomegaly. Tiny gallstone or gallbladder polyp Qasim Edwards MD Chest CT 07/11/16 Signed Impressions: Service Date/Time: Monday, July 11, 2016 22:37 - CONCLUSION: Bilateral pleural effusions, slight ascites and significant worsening of airspace consolidation in both lungs. Mert Laurent MD Objective Remarks GENERAL: 31-year-old female, appears critically ill currently orotracheally intubated SKIN: Warm and dry. No rash HEAD: Normocephalic. EYES: No scleral icterus. No injection or drainage. NECK: Supple, trachea midline. No JVD or lymphadenopathy. Orally intubated CARDIOVASCULAR: Tachycardic. S1, S2 no S4 without murmur rubs. RESPIRATORY: Coarse crackles appreciated in all lung dean. GASTROINTESTINAL: Abdomen slightly protuberant, nontender. Hypoactive bowel sounds. No significant ascites clinically MUSCULOSKELETAL: 2+ bilateral upper and lower extremity peripheral edema. Neuro: Sedated and intubated positive gag. Positive corneal reflex. She moves all 4 extremities spontaneously. Urinary Catheter: No Vascular Central Line Catheter: Yes Side: Left, Right Location: Internal, Jugular A/P Assessment and Plan ASSESSMENT Acute respiratory failure Diffuse bilateral airspace disease/HCAP Septic shock VRE bacteremia Pleural effusions s/p Right sided thoracentesis with removal 800ml pleural fluid 07/12 Leukocytosis, worsening Acute kidney failure on dialysis Anemia, thrombocytopenia Elevated LFTs Cirrhosis of the liver secondary to ETOH use. History of Hypertension. Recurrent ascites s/p paracentesis performed on June 30. s/p paracentesis on 07/12 with removal 4.3L. Plan Neuro: On Fentanyl/Diprivan/Precedex infusion for sedation. Daily sedation vacation starting today 07/23. DC propofol and fentanyl infusions 07/23 Continue thiamine, multivitamins and folic acid. on rifaximin and Trental 400 every 8. Ammonia level < 10 Pulm: On PRVC/AC RR 14, TV 500, IT:1.0, PEEP:5, FIO2 40% Continue with vent support keep sat >90%. CPAP trials daily, but mental status will not permit extubation Bronchodilators every 6 hours, solumederol 40mg Q12 ICU vent bundle. s/p CT guided thoracentesis 07/12 with removal 800ml -transudative effusion. Pleural fluid culture- NGTD Pulm is following- Dr. Mckeon s/p bronch 07/13 (small mucus plugs removed) follow up on BAL results- NGTD. Possible need lung biopsy. Consulted CT surgery 07/21 -not a candidate for open lung biopsy per Dr. Carvajal. Ordered PEDRO, CRP and RF CV: Monitor HR and BP and maintain MAP >65 mmHg. Echo from June 22 showed an EF of 50-55%. Echo 07/15: EF 55-60%, no RWMA, mod TR. Remains on Constantine-Synephrine to keep map above 65 /renal: Monitor renal function, I's and O's, and electrolyte replacement s/p CT guided paracentesis 07/12 with removal 4.3L. Follow up on cultures- NGTD Dr. Tariq. Renal US: No hydronephrosis. -4000 cc with hemodialysis today GI: On Protonix 40 mg IV twice daily. Tube feeds with Nepro GI following for anemia and Hemoccult positive ID: Continue abx Daptomycin, micafungin and Flagyl ID is following. Monitor for signs of infections(Fever and WBC). Rocephin discontinued 07/20 Strep pneumoniae and Legionella urinary antigen negative. Blood cultures 07/09: NGTD, sputum cx from 07/11: NGTD Follow up on BAL results-1 with yeast. 07/12: Peritoneal and pleural fluid cxs: NGTD Repeat urine and sputum cx. C Diff neg 07/10 Blood cx 07/21 VRE. 07/22 urine cx Gp D enterococcus Endo: On SSI medium scale with Accu-Chek q.6h. for glycemic control Heme: Monitor CBC, s/p 2units PRBC. Patient received Vitamin K 10mg x1 and DDAVP on 07/19, Monitor H/H post transfusion., monitor Coags/ Fibrinogen level. GI prophylaxis with Protonix 40 mg twice a day and DVT prophylaxis with SCDs, heparin subcu held. In light of hemoptysis and heme positive stools CCT 35 mins Giovani Tripp MD Jul 23, 2016 11:59
--- NOTE | 2016-07-23 13:38 | HHI.PR ---
Subjective Remarks 31 YOWFw ith VDRF,Lung infilt,Pl effusion Had bronch Reintubated 07/14 On ACV Sedated with Fentanyl Worsening renal functions had HD BC Entercoccus Vas cath removed Objective Vital Signs Vital Signs Date Time Temp Pulse Resp B/P Pulse Ox O2 Delivery O2 Flow Rate FiO2 07/23/16 12:00 40 07/23/16 12:00 114 07/23/16 11:23 92 30 07/23/16 10:00 104 07/23/16 08:19 98 30 07/23/16 08:00 110 07/23/16 08:00 40 07/23/16 06:00 122 07/23/16 04:45 119 14 110/53 98 07/23/16 04:30 117 14 114/55 98 07/23/16 04:24 97 40 07/23/16 04:15 117 14 111/56 98 07/23/16 04:00 40 07/23/16 04:00 122 07/23/16 04:00 114 14 111/56 98 07/23/16 03:45 113 14 111/56 98 07/23/16 03:30 113 14 105/52 98 07/23/16 03:15 116 14 112/54 99 07/23/16 03:14 116 14 113/54 99 07/23/16 03:00 113 22 07/23/16 02:15 116 14 101/49 96 07/23/16 02:00 117 07/23/16 02:00 118 15 110/56 97 07/23/16 01:45 118 16 109/56 97 07/23/16 01:30 118 15 109/55 97 07/23/16 01:15 121 17 107/53 97 07/23/16 01:00 121 15 108/53 97 07/23/16 00:45 121 15 107/53 97 07/23/16 00:30 121 15 108/54 96 07/23/16 00:21 96 40 07/23/16 00:15 118 14 105/53 96 07/23/16 00:00 120 14 110/53 96 07/23/16 00:00 99.3 122 14 108/54 97 07/23/16 00:00 40 07/23/16 00:00 120 07/22/16 22:00 100 07/22/16 20:27 96 40 07/22/16 20:00 99.6 127 14 114/54 96 07/22/16 20:00 122 07/22/16 20:00 40 07/22/16 18:00 118 07/22/16 17:03 96 40 07/22/16 16:00 99.9 111 18 114/55 95 07/22/16 16:00 111 07/22/16 16:00 40 07/22/16 14:00 118 I/O 07/22/16 07/22/16 07/22/16 07/23/16 07/23/16 07/23/16 07:00 15:00 23:00 07:00 15:00 23:00 Intake Total 702 ml 1206 ml 864 ml 594 ml Output Total 0 ml 40 ml 0 ml 3700 ml Balance 702 ml 1166 ml 864 ml 594 ml -3700 ml IV Total 440 ml 855 ml 598 ml 357 ml Tube Feeding 262 ml 351 ml 266 ml Tube Irrigant 237 ml Output Urine Total 0 ml 40 ml 0 ml Hemodialysis 3700 ml Result Diagram: 07/23/16 0400 07/23/16 0400 Objective Remarks GENERAL: MBMN WF with RF, extubated on BIPAP SKIN: Warm and dry. HEAD: Normocephalic. EYES: No scleral icterus. No injection or drainage. NECK: Supple, trachea midline. No JVD or lymphadenopathy. CARDIOVASCULAR: Regular rate and rhythm without murmurs, gallops, or rubs. RESPIRATORY: Breath sounds equal bilaterally. No accessory muscle use. Bilat rales GASTROINTESTINAL: Abdomen soft, non-tender, nondistended. MUSCULOSKELETAL: No cyanosis, ++ edema. BACK: Nontender without obvious deformity. No CVA tenderness. A/P Assessment and Plan VDRF, Reintubated 07/15 Bilat lung infilt Pleural effusion Ascitis hypoxia PLAN: vent support Cont Abx per ID Wean 02 to keep sat >90% IV Solumedrol monitor renal functions. monitor renal Functions Tomi Mckeon MD Jul 23, 2016 13:38
[2016-07-23] MEDS ORDERED: SODIUM CHLORID 0.9% 500 ML INJ 500 ML IV ONE (13:45)
[2016-07-23 14:10] LABS: BACTERIA, URINE FEW /hpf; BLOOD, URINE MOD (NEG); GLUCOSE,URINE NEG (NEG); KETONE, URINE NEG (NEG); NITRITE,URINE NEG (NEG); PH, URINE 7.5 (5.0-8.5); SQUAMOUS EPITHELIAL CELL URINE 1 /hpf (0-5); TRANSITIONAL EPI CELLS, URINE <1 /hpf
[2016-07-23 14:11] LABS: URINE COLOR RED (YELLW/STRAW)
[2016-07-23 14:12] LABS: HEMATOCRIT 21.8 % (35.0-46.0); MEAN CELL VOLUME 93.3 FL (80.0-100.0); MEAN CORPUSCULAR HEMOGLOBIN 33.5 PG (27.0-34.0); MEAN CORPUSCULAR HGB CONC 35.9 % (32.0-36.0); PLATELET COUNT 59 TH/MM3 (150-450); RED BLOOD COUNT 2.33 MIL/MM3 (4.00-5.30); RED CELL DISTRIBUTION WIDTH 18.7 % (11.6-17.2); WHITE BLOOD COUNT 37.6 TH/MM3 (4.0-11.0)
[2016-07-23 14:13] LABS: HEMO FLAGS AUTO DIFF
[2016-07-23 15:06] LABS: BANDS 6 % (0-6); CORRECTED NUCLEATED RBC 6 /100 WBC (0-0); METAMYELOCYTES 2 % (0-1); MYELOCYTES 4 % (0-0); NEUTROPHIL # MANUAL DIFF 35.7 TH/MM3 (1.8-7.7); POLYS (SEG NEUTROPHILS) 83 % (16-70); WBC DIFF SAMPLE 100
[2016-07-23 15:08] LABS: PLATELET ESTIMATE SMEAR LOW (NORMAL); PLATELET MORPHOLOGY NORMAL (NORMAL); SCAN/DIFF FINAL DIFF MANUAL
--- NOTE | 2016-07-23 16:01 | HHI.IDPN ---
Subjective Subjective Remarks ID Xcover for Chart reviewed. is a 31 y/o CF. recently discharged from the hospital, diagnosed to have alcohol hepatitis, being treated for HCAP. Thoracentesis transudative. Sputum Cx negative to date. Pt developed new fevers and elevated WBC and new sepsis workup sent. ID now following for VRE bacteremia and UTI vs translocation. D/W RN Low grade temps overnight. Tmax 100.5 Sedated on the vent Not much resp secretions. Black liquid tarry appearing stools x 2 large volume. Vascath placed 07/19 now removed for cath holiday. Central line placed 07/21 On vasopressors 60 mics rhonda Post HD today. WBC continues to rise Patient had HIV testing 07/02 - negative. Antibiotics Dapto IV Micafungin flagyl Lines RIJ vascath central line Past Medical History Reviewed Allergies: Coded Allergies: No Known Allergies (Unverified , 07/09/16) Objective . Vital Signs Date Time Temp Pulse Resp B/P Pulse Ox O2 Delivery O2 Flow Rate FiO2 07/23/16 15:30 97 40 07/23/16 12:00 40 07/23/16 12:00 114 07/23/16 11:23 92 30 07/23/16 10:00 104 07/23/16 08:19 98 30 07/23/16 08:00 110 07/23/16 08:00 40 07/23/16 06:00 122 07/23/16 04:45 119 14 110/53 98 07/23/16 04:30 117 14 114/55 98 07/23/16 04:24 97 40 07/23/16 04:15 117 14 111/56 98 07/23/16 04:00 40 07/23/16 04:00 122 07/23/16 04:00 114 14 111/56 98 07/23/16 03:45 113 14 111/56 98 07/23/16 03:30 113 14 105/52 98 07/23/16 03:15 116 14 112/54 99 07/23/16 03:14 116 14 113/54 99 07/23/16 03:00 113 22 07/23/16 02:15 116 14 101/49 96 07/23/16 02:00 117 07/23/16 02:00 118 15 110/56 97 07/23/16 01:45 118 16 109/56 97 07/23/16 01:30 118 15 109/55 97 07/23/16 01:15 121 17 107/53 97 07/23/16 01:00 121 15 108/53 97 07/23/16 00:45 121 15 107/53 97 07/23/16 00:30 121 15 108/54 96 07/23/16 00:21 96 40 07/23/16 00:15 118 14 105/53 96 07/23/16 00:00 120 14 110/53 96 07/23/16 00:00 99.3 122 14 108/54 97 07/23/16 00:00 40 07/23/16 00:00 120 07/22/16 22:00 100 07/22/16 20:27 96 40 07/22/16 20:00 99.6 127 14 114/54 96 07/22/16 20:00 122 07/22/16 20:00 40 07/22/16 18:00 118 07/22/16 17:03 96 40 07/22/16 07/22/16 07/23/16 15:00 23:00 07:00 Intake Total 1206 ml 864 ml 594 ml Output Total 40 ml 0 ml Balance 1166 ml 864 ml 594 ml IV Total 855 ml 598 ml 357 ml Tube Feeding 351 ml 266 ml Tube Irrigant 237 ml Output Urine Total 40 ml 0 ml . Laboratory Tests Test 07/21/16 07/22/16 07/23/16 07/23/16 18:05 04:00 04:00 13:40 Hemoglobin 11.9 GM/DL 9.1 GM/DL 7.8 GM/DL 7.8 GM/DL Hematocrit 35.0 % 25.3 % 23.5 % 21.8 % Blood Smear Pathologist Review Haptoglobin 206 MG/DL White Blood Count 48.2 TH/MM3 44.1 TH/MM3 37.6 TH/MM3 Red Blood Count 2.73 MIL/MM3 2.50 MIL/MM3 2.33 MIL/MM3 Mean Corpuscular Volume 92.9 FL 94.0 FL 93.3 FL Mean Corpuscular Hemoglobin 33.2 PG 31.0 PG 33.5 PG Mean Corpuscular Hemoglobin 35.7 % 33.0 % 35.9 % Concent Red Cell Distribution Width 18.7 % 18.5 % 18.7 % Platelet Count 57 TH/MM3 55 TH/MM3 59 TH/MM3 Mean Platelet Volume 11.6 FL 12.0 FL 11.3 FL Neutrophils (%) (Auto) % 96.1 % % Lymphocytes (%) (Auto) % 1.9 % % Monocytes (%) (Auto) % 1.7 % % Eosinophils (%) (Auto) % 0.0 % % Basophils (%) (Auto) % 0.3 % % Neutrophils # (Auto) TH/MM3 42.4 TH/MM3 TH/MM3 Lymphocytes # (Auto) TH/MM3 0.8 TH/MM3 TH/MM3 Monocytes # (Auto) TH/MM3 0.7 TH/MM3 TH/MM3 Eosinophils # (Auto) TH/MM3 0.0 TH/MM3 TH/MM3 Basophils # (Auto) TH/MM3 0.1 TH/MM3 TH/MM3 CBC Comment AUTO DIFF AUTO DIFF AUTO DIFF Differential Total Cells 100 100 100 Counted Neutrophils % (Manual) 72 % 87 % 83 % Band Neutrophils % 14 % 8 % 6 % Lymphocytes % 5 % 1 % 3 % Neutrophils # (Manual) 45.8 TH/MM3 43.7 TH/MM3 35.7 TH/MM3 Metamyelocytes 8 % 1 % 2 % Promyelocytes 1 % Nucleated Red Blood Cells 12 /100 WBC 2 /100 WBC 6 /100 WBC Differential Comment FINAL DIFF FINAL DIFF FINAL DIFF MANUAL MANUAL MANUAL Platelet Estimate LOW LOW LOW Platelet Morphology Comment NORMAL NORMAL NORMAL Myelocytes 3 % 4 % Stomatocytes 1+ Monocytes % 2 % Basophilic Stippling HEAVY Laboratory Tests Test 07/21/16 07/22/16 07/22/16 07/23/16 18:05 04:00 18:52 04:00 Lactate Dehydrogenase 674 U/L C-Reactive Protein 5.00 MG/DL Procalcitonin 7.30 ng/mL Sodium Level 139 MEQ/L 136 MEQ/L Potassium Level 4.3 MEQ/L 4.9 MEQ/L Chloride Level 101 MEQ/L 100 MEQ/L Carbon Dioxide Level 24.4 MEQ/L 20.1 MEQ/L Anion Gap 14 MEQ/L 16 MEQ/L Blood Urea Nitrogen 92 MG/DL 126 MG/DL Creatinine 2.69 MG/DL 3.34 MG/DL Estimat Glomerular Filtration 20 ML/MIN 16 ML/MIN Rate Random Glucose 346 MG/DL 322 MG/DL Calcium Level 7.8 MG/DL 8.0 MG/DL Phosphorus Level 2.8 MG/DL 3.9 MG/DL Albumin 2.5 GM/DL 2.4 GM/DL Total Creatine Kinase 592 U/L Creatine Kinase MB 4.9 NG/ML Creatine Kinase MB % 0.8 % Total Bilirubin 2.0 MG/DL Aspartate Amino Transf 125 U/L (AST/SGOT) Alanine Aminotransferase 89 U/L (ALT/SGPT) Alkaline Phosphatase 157 U/L Total Protein 4.9 GM/DL Microbiology Date/Time Procedure Status Source Growth 07/21/16 18:05 Aerobic Blood Culture - Preliminary Resulted Blood Line Enterococcus Faecium Vre 07/21/16 18:05 Anaerobic Blood Culture - Preliminary Resulted Enterococcus Faecium Vre 07/21/16 18:55 Aerobic Blood Culture - Preliminary Resulted Blood Peripheral NO GROWTH IN 2 DAYS 07/21/16 18:55 Anaerobic Blood Culture - Preliminary Resulted Blood Peripheral NO GROWTH IN 2 DAYS 07/22/16 13:30 Gram Stain - Final Resulted Sputum Endotracheal 07/22/16 13:30 Sputum Culture - Preliminary Resulted Sputum Endotracheal IMMATURE GROWTH - REINCUBATE 07/22/16 13:30 Urine Culture - Preliminary Resulted Urine Catheterized Urine Group D Enterococcus 07/22/16 18:00 Aerobic Blood Culture - Preliminary Resulted Blood Peripheral NO GROWTH IN 1 DAY 07/22/16 18:00 Anaerobic Blood Culture - Preliminary Resulted Blood Peripheral NO GROWTH IN 1 DAY 07/22/16 18:20 Aerobic Blood Culture - Preliminary Resulted Blood Line NO GROWTH IN 1 DAY 07/22/16 18:20 Anaerobic Blood Culture - Preliminary Resulted Blood Line NO GROWTH IN 1 DAY Imaging Chest X-Ray 07/22/16 0600 Signed Impressions: Service Date/Time: Friday, July 22, 2016 05:20 - CONCLUSION: 1. Patchy alveolar disease characteristic of edema or pneumonia. There has been no significant change when compared to the prior exam. Jamaal Eastman MD Chest X-Ray 07/21/16 1431 Signed Impressions: Service Date/Time: July 14:46 - CONCLUSION: 1. Endotracheal tube tip is at the naldo and should be retracted. 2. The recently placed left internal jugular central line distal tip is in the SVC. No pneumothorax is visualized. 3. Stable bilateral severe air space consolidation. Qasim Osuna MD Chest X-Ray 07/20/16 0000 Signed Impressions: Service Date/Time: Wednesday, July 20, 2016 13:24 - CONCLUSION: Increasing interstitial edema. Harish Chaudhary MD FACR Last Impressions Chest X-Ray 07/18/16 0000 Signed Impressions: Service Date/Time: Monday, July 18, 2016 10:42 - CONCLUSION: Stable chest x- ray with relatively diffuse bilateral airspace consolidation, left greater than right. Qasim Osuna MD Renal Ultrasound 07/17/16 0000 Signed Impressions: Service Date/Time: Sunday, July 17, 2016 10:58 - CONCLUSION: 1. Normal ultrasound appearance of the kidneys. There is no hydronephrosis. 2. Urinary bladder is not visualized. 3. There is free fluid within the abdomen and pelvis. Qasim Osuna MD Thoracentesis Ultrasound 07/12/16 0000 Signed Impressions: Service Date/Time: Tuesday, July 12, 2016 10:17 - CONCLUSION: Uncomplicated ultrasound guided thoracentesis. Garret Verma MD Cyst Biopsy Asp-Paracentesis US 07/12/16 0000 Signed Impressions: Service Date/Time: Tuesday, July 12, 2016 10:17 - CONCLUSION: Uncomplicated ultrasound guided paracentesis. Garret Verma MD Liver Ultrasound 07/11/16 0000 Signed Impressions: Service Date/Time: Monday, July 11, 2016 10:24 - CONCLUSION: Ascites and pleural effusions. Splenomegaly. Tiny gallstone or gallbladder polyp Qasim Edwards MD Chest CT 07/11/16 0000 Signed Impressions: Service Date/Time: Monday, July 11, 2016 22:37 - CONCLUSION: Bilateral pleural effusions, slight ascites and significant worsening of airspace consolidation in both lungs. Mert Laurent MD Physical Exam GENERAL: on the vent, sedated SKIN: Warm and dry. Has jaundice. Has spider angiomata in her upper chest HEAD: Atraumatic. Normocephalic. No temporal wasting, or tenderness. EYES: [place] conjunctiva. No petechia or hemorrhage. Has scleral icterus. No injection or drainage. EARS, NOSE AND THROAT: Nose without bleeding or purulent nasal discharge. She is orally intubated. CARDIOVASCULAR: Regular rate and rhythm. No murmurs, rubs or gallops heard CHEST: Diffuse rhonchi ABDOMEN: Soft, mildly distended, bowel sounds present and normoactive, no tenderness, no guarding or rebound. EXTREMITIES: No clubbing, or cyanosis. Has bilateral at least 3+ pitting edema. Both feet well perfused and warm. NEUROLOGICAL: Sedated PSYCH: Unable to assess : Arevalo in place, minimal brownish urine in arevalo bag LINE: No evidence of infection Assessment & Plan Remarks IMPRESSION Sepsis (fever, leucocytosis, VRE bacteremia) ? Line related bacteremia (CL is new, ? Vascath related vs GI etiology) Bilateral infiltrates, worsening in very acute progression, likely more inflammatory, ?ARDS, ?other inflammatory - her CXR has changed very quickly - sputum negative - pneumonia vs pneumonitis 2/2 non infectious etiology Respiratory failure, reintubated 07/15 ETOH hepatitis Leukocytosis, up, worsening - ?new infection - has one (+) BC with GPC - at risk for fungal, since has been on steroids - has diarrhea, C diff negative ARF , no e/o intertitial nephritis (neg urine eos) Diarrhea, abx associated Thrombocytopenia, worsening, DIC, sepsis RECOMMENDATION Continue Dapto IV (ASP: VRE bacteremia, thrombocytopenia). Continue Micafungin IV will likely deescalate if cultures negative. Recommend CT A/P to r/o GI pathology like colitis, RP bleed in view of black tarry liquid stool and GI bleed needing transfusion this admission. Needs GI workup when able (EGD and possibly colonoscopy in view of GI organism, alcoholic hepatitis and black tarry stools) d/w : bedside US to look for Ascites volume. If significant may need paracentesis. On steroids Also on Flagyl ? for PCR negative CDiff. florentin Griffin continue for now. Unsure if Cdiff was obtained after any local care items such as creams etc. Follow temps Follow CBC Monitor progress clinically. D/W RN florentin Griffin Critical thinking and decision making, kelseaw MD and RN, reviewed MAR and chart. Appears to be critically ill. Audelia Rivas MD Jul 23, 2016 16:01 RECOMMENDATION Repeat 2 BC today Continue Micafungin Vanco level in AM Add Cubicin while BC pending, to cover for VRE - check CPK Open lung biopsy if no improvement and still no diagnosis - once feasible from resp standpoint On steroids Also on Flagyl Follow temps Follow CBC Monitor progress requesting to speak with palliative med D/W RN Dr Omar Rivas covering this weekend D/W Audelia Flores MD Jul 23, 2016 16:01
[2016-07-23] MEDS: DOCUSATE SODIUM 100 MG CAP PO SCH (17:00)
[2016-07-23] MEDS: MICAFUNGIN INJ 100 MG in SODIUM CHLORIDE 0.9% INJ 100 ML IV SCH (17:03)
[2016-07-24] VITALS (20 sets, daily range): BP systolic 75–117; BP diastolic 40–64; PULSE 82–174; RESP 18–21; TEMP 96.8–98.5; O2SAT 100
[2016-07-24] MEDS: DEXMEDETOMIDINE INJ 200 MCG in SODIUM CHLORIDE 0.9% INJ 50 ML IV SCH ×2 (00:21→19:55)
[2016-07-24] MEDS: INSULIN NovoLIN REGULAR SUPPLEMENTAL SCALE SQ SCH ×4 (03:00→20:07)
[2016-07-24] MEDS: RESP: ALBUTEROL 2.5 MG/IPRATROPIUM 0.5 MG NEB (SCH) NEB ×4 (03:42→20:47)
--- NOTE | 2016-07-24 04:32 | RADRPT ---
EXAM DATE/TIME: 07/24/2016 03:47 [facility] COMPARISON: CHEST SINGLE AP, July 22, 2016, 5:20. INDICATIONS : Shortness of breath, possible pulmonary disease. MEDICAL HISTORY : None. SURGICAL HISTORY : None. ENCOUNTER: Subsequent ACUITY: 2 months PAIN SCORE: Non-responsive. LOCATION: Bilateral chest FINDINGS: Left IJ line is present with tip overlapping the expected region of the SVC. NG tube is present with tip in the stomach. ET tube is present with tip overlapping approximately 1 cm above the naldo. Bila teralmixed interstitial and alveolar process is present slightly improved since the prior exam. CONCLUSION: Mild improvement in the aeration of the lungs. Mert Laurent MD on July 24, 2016 at 4:29 Board Certified Radiologist. This report was verified electronically.
[2016-07-24 05:56] LABS: HEMATOCRIT 22.3 % (35.0-46.0); MEAN CELL VOLUME 94.3 FL (80.0-100.0); MEAN CORPUSCULAR HEMOGLOBIN 33.2 PG (27.0-34.0); MEAN CORPUSCULAR HGB CONC 35.2 % (32.0-36.0); PLATELET COUNT 61 TH/MM3 (150-450); RED BLOOD COUNT 2.37 MIL/MM3 (4.00-5.30); RED CELL DISTRIBUTION WIDTH 18.7 % (11.6-17.2); WHITE BLOOD COUNT 43.3 TH/MM3 (4.0-11.0)
[2016-07-24] MEDS: DOCUSATE SODIUM 100 MG CAP PO SCH ×2 (05:57→17:00)
[2016-07-24] MEDS: methylPREDNISolone SOD SUCC 40 MG/1 ML VIAL IV PUSH SCH ×2 (05:57→18:38)
[2016-07-24] MEDS: PENTOXIFYLLINE 400 MG CONTROLLED RELEASE TAB PO SCH ×3 (05:57→20:22)
[2016-07-24] MEDS: metroNIDAZOLE 500 MG TAB PO SCH ×3 (05:57→20:22)
[2016-07-24 05:59] LABS: HEMO FLAGS AUTO DIFF
[2016-07-24] MEDS: ARTIFICIAL TEARS OPTH SOLN 15 ML BTL EACH EYE SCH ×3 (06:00→22:00)
[2016-07-24 06:22] LABS: TOTAL BILIRUBIN ADULT 2.3 MG/DL (0.2-1.0)
[2016-07-24 06:36] LABS: CALCIUM-PROTEIN CORRECTED 8.1 MG/DL (8.5-10.1)
[2016-07-24 06:37] LABS: MAGNESIUM 2.1 MG/DL (1.5-2.5)
[2016-07-24 06:38] LABS: BICARBONATE 21.8 MEQ/L (21.0-32.0); POTASSIUM 4.5 MEQ/L (3.5-5.1)
[2016-07-24] MEDS ORDERED: CEFEPIME INJ 1,000 MG in SODIUM CHLORIDE 0.9% INJ 100 ML IV SCH (08:00)
[2016-07-24] MEDS: CHLORHEXIDINE 0.12% (ORAL KIT) 15 ML CUP MT SCH ×2 (08:00→20:00)
[2016-07-24 08:11] LABS: BANDS 10 % (0-6); CORRECTED NUCLEATED RBC 4 /100 WBC (0-0); METAMYELOCYTES 1 % (0-1); MYELOCYTES 3 % (0-0); NEUTROPHIL # MANUAL DIFF 42.9 TH/MM3 (1.8-7.7); POLYS (SEG NEUTROPHILS) 85 % (16-70); WBC DIFF SAMPLE 100
[2016-07-24 08:17] LABS: PLATELET ESTIMATE SMEAR LOW (NORMAL); PLATELET MORPHOLOGY NORMAL (NORMAL); SCAN/DIFF FINAL DIFF MANUAL
[2016-07-24] MEDS: SODIUM CHLORIDE 0.9% FLUSH 10 ML FLUSH IVF SCH (09:00)
[2016-07-24] MEDS: SODIUM CHLORIDE 0.9% FLUSH 10 ML FLUSH IV FLUSH SCH ×2 (09:00→20:11)
[2016-07-24] MEDS: TIOTROPIUM BROMIDE 18 MCG INH INH SCH (09:22)
[2016-07-24] MEDS: FLUTICASONE PROPIONATE 110 MCG/ACT 12 GM INHALER INH SCH ×2 (09:22→20:10)
[2016-07-24] MEDS: THIAMINE HCL 100 MG TAB PO SCH (09:23)
[2016-07-24] MEDS: FOLIC ACID 1 MG TAB PO SCH (09:23)
[2016-07-24] MEDS: guaiFENesin E.R. 600 MG TAB PO SCH ×2 (09:23→19:53)
[2016-07-24] MEDS: MULTIVITAMIN TAB PO SCH (09:23)
[2016-07-24] MEDS: RIFAXIMIN 550 MG TAB PO SCH ×2 (09:23→19:53)
[2016-07-24] MEDS: PANTOPRAZOLE SODIUM 40 MG VIAL IV PUSH SCH ×2 (09:24→19:56)
[2016-07-24] MEDS ORDERED: ALBUMIN HUMAN 25% 25 GM/100 ML BAGP IV ONE (10:00)
--- NOTE | 2016-07-24 10:29 | HHI.IDPN ---
Subjective Subjective Remarks ID Xcover for Chart reviewed. is a 31 y/o CF. recently discharged from the hospital, diagnosed to have alcohol hepatitis, being treated for HCAP. Thoracentesis transudative. Sputum Cx negative to date. Pt developed new fevers and elevated WBC and new sepsis workup sent. ID now following for VRE bacteremia and UTI vs translocation. D/W RN Periods of hypothermia. Sedated on the vent Not much resp secretions. Vascath replaced today. Central line placed 07/21 On vasopressors 50 mics rhonda Post HD Monday. WBC continues to rise Patient had HIV testing 07/02 - negative but sent HIV RNA PCR. Antibiotics Dapto IV Micafungin flagyl Lines RIJ vascath central line Past Medical History Reviewed Allergies: Coded Allergies: No Known Allergies (Unverified , 07/09/16) Objective . Vital Signs Date Time Temp Pulse Resp B/P Pulse Ox O2 Delivery O2 Flow Rate FiO2 07/24/16 07:55 100 30 07/24/16 06:00 120 07/24/16 04:26 100 40 07/24/16 04:00 111 07/24/16 04:00 40 07/24/16 04:00 96.9 112 20 111/55 100 07/24/16 02:00 115 07/24/16 01:17 100 40 07/24/16 00:00 114 07/24/16 00:00 40 07/24/16 00:00 97.2 114 18 116/58 100 07/23/16 22:30 100 40 07/23/16 22:00 110 07/23/16 22:00 115 07/23/16 20:13 100 40 07/23/16 20:00 110 07/23/16 20:00 117 07/23/16 20:00 99.0 117 14 118/60 100 07/23/16 20:00 40 07/23/16 18:00 97 07/23/16 16:00 98 07/23/16 16:00 98.2 117 17 114/58 97 07/23/16 16:00 40 07/23/16 15:30 97 40 07/23/16 14:00 101 07/23/16 12:00 98.6 115 18 106/55 98 07/23/16 12:00 40 07/23/16 12:00 114 07/23/16 11:23 92 30 07/23/16 07/23/16 07/24/16 15:00 23:00 07:00 Intake Total 1237 ml 326 ml 760 ml Output Total 3700 ml 0 ml 0 ml Balance -2463 ml 326 ml 760 ml IV Total 796 ml 149 ml 262 ml Tube Feeding 441 ml 177 ml 298 ml Other 200 ml Output Urine Total 0 ml 0 ml Stool Total 0 ml 0 ml Hemodialysis 3700 ml # Voids 0 . Laboratory Tests Test 07/23/16 07/23/16 07/24/16 04:00 13:40 05:21 White Blood Count 44.1 TH/MM3 37.6 TH/MM3 43.3 TH/MM3 Red Blood Count 2.50 MIL/MM3 2.33 MIL/MM3 2.37 MIL/MM3 Hemoglobin 7.8 GM/DL 7.8 GM/DL 7.9 GM/DL Hematocrit 23.5 % 21.8 % 22.3 % Mean Corpuscular Volume 94.0 FL 93.3 FL 94.3 FL Mean Corpuscular Hemoglobin 31.0 PG 33.5 PG 33.2 PG Mean Corpuscular Hemoglobin 33.0 % 35.9 % 35.2 % Concent Red Cell Distribution Width 18.5 % 18.7 % 18.7 % Platelet Count 55 TH/MM3 59 TH/MM3 61 TH/MM3 Mean Platelet Volume 12.0 FL 11.3 FL 12.3 FL Neutrophils (%) (Auto) 96.1 % % % Lymphocytes (%) (Auto) 1.9 % % % Monocytes (%) (Auto) 1.7 % % % Eosinophils (%) (Auto) 0.0 % % % Basophils (%) (Auto) 0.3 % % % Neutrophils # (Auto) 42.4 TH/MM3 TH/MM3 TH/MM3 Lymphocytes # (Auto) 0.8 TH/MM3 TH/MM3 TH/MM3 Monocytes # (Auto) 0.7 TH/MM3 TH/MM3 TH/MM3 Eosinophils # (Auto) 0.0 TH/MM3 TH/MM3 TH/MM3 Basophils # (Auto) 0.1 TH/MM3 TH/MM3 TH/MM3 CBC Comment AUTO DIFF AUTO DIFF AUTO DIFF Differential Total Cells 100 100 100 Counted Neutrophils % (Manual) 87 % 83 % 85 % Band Neutrophils % 8 % 6 % 10 % Lymphocytes % 1 % 3 % 1 % Neutrophils # (Manual) 43.7 TH/MM3 35.7 TH/MM3 42.9 TH/MM3 Metamyelocytes 1 % 2 % 1 % Myelocytes 3 % 4 % 3 % Nucleated Red Blood Cells 2 /100 WBC 6 /100 WBC 4 /100 WBC Differential Comment FINAL DIFF FINAL DIFF FINAL DIFF MANUAL MANUAL MANUAL Platelet Estimate LOW LOW LOW Platelet Morphology Comment NORMAL NORMAL NORMAL Stomatocytes 1+ Monocytes % 2 % Basophilic Stippling HEAVY Laboratory Tests Test 07/22/16 07/23/16 07/24/16 18:52 04:00 05:21 Total Creatine Kinase 592 U/L Creatine Kinase MB 4.9 NG/ML Creatine Kinase MB % 0.8 % Sodium Level 136 MEQ/L 137 MEQ/L Potassium Level 4.9 MEQ/L 4.5 MEQ/L Chloride Level 100 MEQ/L 99 MEQ/L Carbon Dioxide Level 20.1 MEQ/L 21.8 MEQ/L Anion Gap 16 MEQ/L 16 MEQ/L Blood Urea Nitrogen 126 MG/DL 111 MG/DL Creatinine 3.34 MG/DL 3.03 MG/DL Estimat Glomerular Filtration 16 ML/MIN 18 ML/MIN Rate Random Glucose 322 MG/DL 369 MG/DL Calcium Level 8.0 MG/DL 7.0 MG/DL Phosphorus Level 3.9 MG/DL Total Bilirubin 2.0 MG/DL 2.3 MG/DL Aspartate Amino Transf 125 U/L 136 U/L (AST/SGOT) Alanine Aminotransferase 89 U/L 100 U/L (ALT/SGPT) Alkaline Phosphatase 157 U/L 171 U/L Total Protein 4.9 GM/DL 5.1 GM/DL Albumin 2.4 GM/DL 2.9 GM/DL Protein Corrected Calcium 8.1 MG/DL Magnesium Level 2.1 MG/DL Ammonia 71 MCMOL/L Microbiology Date/Time Procedure Status Source Growth 07/21/16 18:05 Aerobic Blood Culture - Preliminary Resulted Blood Line Enterococcus Faecium Vre 07/21/16 18:05 Anaerobic Blood Culture - Preliminary Resulted Enterococcus Faecium Vre 07/21/16 18:55 Aerobic Blood Culture - Preliminary Resulted Blood Peripheral NO GROWTH IN 2 DAYS 07/21/16 18:55 Anaerobic Blood Culture - Preliminary Resulted Blood Peripheral NO GROWTH IN 2 DAYS 07/22/16 13:30 Gram Stain - Final Resulted Sputum Endotracheal 07/22/16 13:30 Sputum Culture - Preliminary Resulted Sputum Endotracheal IMMATURE GROWTH - REINCUBATE 07/22/16 13:30 Urine Culture - Preliminary Resulted Urine Catheterized Urine Group D Enterococcus 07/22/16 18:00 Aerobic Blood Culture - Preliminary Resulted Blood Peripheral NO GROWTH IN 1 DAY 07/22/16 18:00 Anaerobic Blood Culture - Preliminary Resulted Blood Peripheral NO GROWTH IN 1 DAY 07/22/16 18:20 Aerobic Blood Culture - Preliminary Resulted Blood Line NO GROWTH IN 1 DAY 07/22/16 18:20 Anaerobic Blood Culture - Preliminary Resulted Blood Line NO GROWTH IN 1 DAY Imaging Chest X-Ray 07/22/16 0600 Signed Impressions: Service Date/Time: Friday, July 22, 2016 05:20 - CONCLUSION: 1. Patchy alveolar disease characteristic of edema or pneumonia. There has been no significant change when compared to the prior exam. Jamaal Eastman MD Chest X-Ray 07/21/16 1431 Signed Impressions: Service Date/Time: July 14:46 - CONCLUSION: 1. Endotracheal tube tip is at the naldo and should be retracted. 2. The recently placed left internal jugular central line distal tip is in the SVC. No pneumothorax is visualized. 3. Stable bilateral severe air space consolidation. Qasim Osuna MD Chest X-Ray 07/20/16 0000 Signed Impressions: Service Date/Time: Wednesday, July 20, 2016 13:24 - CONCLUSION: Increasing interstitial edema. Harish Chaudhary MD FACR Last Impressions Chest X-Ray 07/18/16 0000 Signed Impressions: Service Date/Time: Monday, July 18, 2016 10:42 - CONCLUSION: Stable chest x- ray with relatively diffuse bilateral airspace consolidation, left greater than right. Qasim Osuna MD Renal Ultrasound 07/17/16 0000 Signed Impressions: Service Date/Time: Sunday, July 17, 2016 10:58 - CONCLUSION: 1. Normal ultrasound appearance of the kidneys. There is no hydronephrosis. 2. Urinary bladder is not visualized. 3. There is free fluid within the abdomen and pelvis. Qasim Osuna MD Thoracentesis Ultrasound 07/12/16 0000 Signed Impressions: Service Date/Time: Tuesday, July 12, 2016 10:17 - CONCLUSION: Uncomplicated ultrasound guided thoracentesis. Garret Verma MD Cyst Biopsy Asp-Paracentesis US 07/12/16 0000 Signed Impressions: Service Date/Time: Tuesday, July 12, 2016 10:17 - CONCLUSION: Uncomplicated ultrasound guided paracentesis. Garret Verma MD Liver Ultrasound 07/11/16 0000 Signed Impressions: Service Date/Time: Monday, July 11, 2016 10:24 - CONCLUSION: Ascites and pleural effusions. Splenomegaly. Tiny gallstone or gallbladder polyp Qasim Edwards MD Chest CT 07/11/16 Signed Impressions: Service Date/Time: Monday, July 11, 2016 22:37 - CONCLUSION: Bilateral pleural effusions, slight ascites and significant worsening of airspace consolidation in both lungs. Mert Laurent MD Physical Exam GENERAL: on the vent, sedated SKIN: Warm and dry. Has jaundice. Has spider angiomata in her upper chest HEAD: Atraumatic. Normocephalic. No temporal wasting, or tenderness. EYES: [place] conjunctiva. No petechia or hemorrhage. Has scleral icterus. No injection or drainage. EARS, NOSE AND THROAT: Nose without bleeding or purulent nasal discharge. She is orally intubated. CARDIOVASCULAR: Regular rate and rhythm. No murmurs, rubs or gallops heard CHEST: Diffuse rhonchi ABDOMEN: Soft, mildly distended, bowel sounds present and normoactive, no tenderness, no guarding or rebound. Scratch zavala and bruising noted on abdomen and left leg. EXTREMITIES: No clubbing, or cyanosis. Has bilateral at least 3+ pitting edema. Both feet well perfused and warm. NEUROLOGICAL: Sedated PSYCH: Unable to assess LINE: No evidence of infection Assessment & Plan Remarks IMPRESSION Sepsis (fever, leucocytosis, VRE bacteremia) ? Line related bacteremia (CL is new, ? Vascath related vs GI etiology) Bilateral infiltrates, worsening in very acute progression, likely more inflammatory, ?ARDS, ?other inflammatory - her CXR has changed very quickly - sputum negative - pneumonia vs pneumonitis 2/2 non infectious etiology Respiratory failure, reintubated 07/15 ETOH hepatitis Leukocytosis, up, worsening - ?new infection - has one (+) BC with GPC - at risk for fungal, since has been on steroids - has diarrhea, C diff negative ARF , no e/o intertitial nephritis (neg urine eos) Diarrhea, abx associated Thrombocytopenia, DIC, sepsis, ? liver disease related. RECOMMENDATION Start Cefepime 2 gm IV q24hrs (Re: Possible SBP. Renal dose adjusted by me). Continue Dapto IV (ASP: VRE bacteremia, thrombocytopenia). Continue Micafungin IV will likely deescalate if cultures negative. Also on Flagyl ? for PCR negative CDiff. florentin Griffin continue for now. Unsure if Cdiff was obtained after any local care items such as creams etc. Recommend CT A/P to r/o GI pathology like colitis, RP bleed in view of black tarry liquid stool and GI bleed needing transfusion this admission. Needs GI workup (EGD and possibly colonoscopy in view of GI organism, alcoholic hepatitis and black tarry stools): kelseaw BP and platelets ok for proceeding with GI endoscopies. Will [facility]. d/w : bedside paracentesis today. Studies for micro being sent to r/o SBP. Orders entered. Follow temps Follow CBC Monitor progress clinically. D/W RN florentin Griffin Appears to be critically ill, prognosis guarded. to resume care in am 07/25/2016. Audelia Rivas MD Jul 24, 2016 10:29
[2016-07-24] MEDS ORDERED: METOPROLOL TARTRATE 5 MG/5 ML VIAL IV PUSH ONE (11:45)
[2016-07-24] MEDS ORDERED: METOPROLOL TARTRATE 5 MG/5 ML VIAL ONE (11:46)
--- NOTE | 2016-07-24 11:47 | PD.PROCEDR ---
Procedure Note Procedure US guided Paracentesis Note: Informed consent obtained and time out performed Patient was placed in L lateral decubitus position. LLQ site marked with US. Patient prepped and draped under sterile precautions. Site anesthetized with 1% lidocaine. Paracentesis Angiocath was introduced into the peritoneal space and needle was removed and approximately 30 mL yellow slightly cloudy fluid collected for further studies. Angiocath was connected to the Vacutainer and additional approximately 1.3 L of slightly cloudy yellow fluid was removed. Blood loss was less than 3 mL. Patient tolerated procedure well Giovani Tripp MD Jul 24, 2016 11:47
--- NOTE | 2016-07-24 11:49 | PD.PROCEDR ---
Central Line Procedure REASON FOR PROCEDURE Central venous access PROCEDURE PERFORMED Central line placement: L subclavian vascath CONSENT Informed consent for procedure was obtained and time out performed. The risks and benefits of the procedure were discussed to include but limited to bleeding , clot formation, infection, and even . ANESTHESIA Local injection of 1% Lidocaine DESCRIPTION OF THE PROCEDURE The patient was placed in supine, mild Trendelenburg position. The area was exposed and cleansed with ChloraPrep, times two. Large sterile drape was used to cover the patient, with the site exposed, under sterile conditions including cap, face mask, sterile gown, and sterile gloves. On single attempt, the introducer needle was inserted with negative pressure in syringe and venous flash was obtained. The guide wire was then advanced without any restriction and the needle was removed. The dilator was used without any complications. Using Seldinger technique the 20 CM 14 F double lumen vascath was advanced over the guide wire to a depth of 18 centimeters. The guide wire was removed. All ports were aspirated with dark venous blood return and flushed easily with sterile saline. All ports were capped. Antibiotic disc was placed around central line at puncture site. The central line was secured to the skin with two interrupted 2.0 silk sutures. The area was bandaged with sterile see- through central line bandage. COMPLICATIONS: No apparent complications ESTIMATED BLOOD LOSS: Less than 1 cc. Giovani Tripp MD Jul 24, 2016 11:49
[2016-07-24] MEDS ORDERED: DILTIAZEM HCL 25 MG/5 ML VIAL IVP ONE (12:30)
--- NOTE | 2016-07-24 12:35 | RADRPT ---
EXAM DATE/TIME: 07/24/2016 11:49 [place] COMPARISON: CHEST SINGLE AP, July 24, 2016, 3:47. INDICATIONS : Evaluate central line placement MEDICAL HISTORY : None. SURGICAL HISTORY : None. ENCOUNTER: Subsequent ACUITY: 2 months PAIN SCORE: Non-responsive. LOCATION: Bilateral chest FINDINGS: Single AP view of the chest. Dual lumen left subclavian central venous catheter is now in place. The tip is not clearly visualized. It is likely in the proximal to mid SVC. Left IJ central venous cathet er, endotracheal tube, and nasogastric tube remain in place. No change in bilateral pulmonary opacity . No evidence of pneumothorax. CONCLUSION: New left subclavian central venous catheter placed with tip likely in the proximal to mid SVC. No jeremie dence of pneumothorax. Isacc Hayes MD on July 24, 2016 at 12:32 Board Certified Radiologist. This report was verified electronically.
--- NOTE | 2016-07-24 12:43 | HHI.CCPN ---
Subjective Remarks/Hospital Course The patient is a 31-year-old female with past medical history of ETOH hepatitis , ascites and cirrhosis of the liver with ETOH use who was admitted to [facility] on July 09 for healthcare-associated pneumonia. She had a chest x-ray on July 09 which showed diffuse consolidation and bilateral pleural effusions, likely representing pulmonary edema. The patient was recently discharged from the hospital after she was admitted back on June 10. On her prior admission she had an echocardiogram on June 22 which showed an EF of 50-55%. The patient also had paracentesis performed on June 30 with removal of 1.8 liters of ascitic fluid and she had a thoracentesis performed on the right on June 16 with removal of 800 cc of transudative pleural fluid. The patient was admitted under the hospitalists service and was started on broad -spectrum antibiotics for healthcare-associated pneumonia. A HaliCAT was called for respiratory distress and the patient was given Lasix at approximately 2 o'clock this morning and transferred to [facility]. Critical care medicine was consulted for respiratory distress. Her laboratory data showed worsening leukocytosis with a WBC of 25.7 from 16.2. Her BNP is 529 from 809. Ammonia level less than 10. A repeat chest x-ray showed worsening airspace process. The patient was placed on BiPAP 11/24 with 95% FIO2 and her initial saturation was 98%. When her FIO2 was weaned down she dropped her saturation and initially she refused intubation. She was just given additional Bumex 1 mg IV x1 and Solu-Medrol 80 mg IV push x1. The patient denies any nausea, vomiting or abdominal pain. 07/12 Patient was intubated yesterday for resp failure sedated with Diprivan and Fentanyl. WBC trending down. Afebrile. 07/13 Patient remains intubated and sedated with Diprivan off Fentanyl drip. s/p Right sided thoracentesis yesterday with removal 800ml pleural fluid and CT guided paracentesis with removal 4.3L. 07/14 Patient is intubated with Diprivan and Fentanyl. s/p bronch yesterday by Dr. Mckeon( small mucus plugs removed). Afebrile. 07/15 Patient s/p extubation yesterday. Placed on BIPAP overnight 11/24 with FIO2 65%. Afebrile. 07/16 Patient was reintubated yesterday for resp distress. CXR showed b/l airspace disease. Afebrile. Sedated with Diprivan and Fentanyl. 07/17 Patient is sedated with Fentanyl and intubated. Afebrile. On PRVC/AC with PEEP:10 and FIO2 50%. 07/18 Patient is sedated with Fentanyl and intubated. Renal function continue to worse with Cr: 2.96 from 2.49 with poor UO. 07/19 Patient remains sedated with Diprivan and Fentanyl. She developed ? hemoptysis and hematuria overnight 2units PRBC, 2u FFP ordered. Patient was given Vitamin K 10mg x1 and DDAVP. Hgb 6.2 this morning. Renal function is worsening with Cr: 3.47 from 2.96. On Bumex drip 0.25 mg/hr. 07/20: Tmax 99.1. No further hemoptysis noted. -2500 cc of hemodialysis yesterday. Tube feeding resume Subjective 07/21: Tmax 99.5. Hemoglobin decreased to 6.7. Transfusing 2 units and plan for hemodialysis today. Remains tachycardic with borderline systolic blood pressure. 07/22: Remains intubated sedated, on 60 g per minute of Constantine-Synephrine. Tachycardic. Hemodialysis yesterday with 4 L of fluid removed. We'll start Precedex discontinued Versed and an attempt to reduce sedation 07/23: Remains intubated, remains on 60 mcg/min of constantine. Blood cx from 07/21 VRE. Urine cx 07/22 Group D enterococcus. Currently receiving daptomycin to cover VRE. Central line was replaced 07/21/16, will remove RIJ HD catheter placed on 6/4: On Precedex, opens eyes to sternal rub. Remains on 60 mcg/min of constantine- synephrine. Moderate ascites, will tap today. Need new Vascath. WBC trending up. Cefepime started Objective Vital Signs Date Time Temp Pulse Resp B/P Pulse Ox O2 Delivery O2 Flow Rate FiO2 07/24/16 12:00 164 07/24/16 12:00 30 07/24/16 07:55 100 07/24/16 04:00 96.9 20 111/55 Intake and Output 07/23/16 07/23/16 07/24/16 08:00 16:00 00:00 Intake Total 594 ml 1237 ml 326 ml Output Total 3700 ml 0 ml Balance 594 ml -2463 ml 326 ml Result Diagram: 07/24/16 0521 07/24/16 0521 Other Results Microbiology Date/Time Procedure Status Source Growth 07/22/16 13:30 Gram Stain - Final Complete Sputum Endotracheal 07/22/16 13:30 Sputum Culture - Final Complete Sputum Endotracheal HEAVY GROWTH NORMAL RESPIRATORY KYLE 07/22/16 13:30 Urine Culture - Final Complete Urine Catheterized Urine Enterococcus Faecium Vre Ольга Albicans Imaging Last Impressions Chest X-Ray 07/20/16 0000 Signed Impressions: Service Date/Time: Wednesday, July 20, 2016 13:24 - CONCLUSION: Increasing interstitial edema. Harish Chaudhary MD FACR Renal Ultrasound 07/17/16 0000 Signed Impressions: Service Date/Time: Sunday, July 17, 2016 10:58 - CONCLUSION: 1. Normal ultrasound appearance of the kidneys. There is no hydronephrosis. 2. Urinary bladder is not visualized. 3. There is free fluid within the abdomen and pelvis. Qasim Osuna MD Thoracentesis Ultrasound 07/12/16 0000 Signed Impressions: Service Date/Time: Tuesday, July 12, 2016 10:17 - CONCLUSION: Uncomplicated ultrasound guided thoracentesis. Garret Verma MD Cyst Biopsy Asp-Paracentesis US 07/12/16 0000 Signed Impressions: Service Date/Time: Tuesday, July 12, 2016 10:17 - CONCLUSION: Uncomplicated ultrasound guided paracentesis. Garret Verma MD Liver Ultrasound 07/11/16 0000 Signed Impressions: Service Date/Time: Monday, July 11, 2016 10:24 - CONCLUSION: Ascites and pleural effusions. Splenomegaly. Tiny gallstone or gallbladder polyp Qasim Edwards MD Chest CT 07/11/16 0000 Signed Impressions: Service Date/Time: Monday, July 11, 2016 22:37 - CONCLUSION: Bilateral pleural effusions, slight ascites and significant worsening of airspace consolidation in both lungs. Mert Laurent MD Objective Remarks GENERAL: 31-year-old female, appears critically ill currently orotracheally intubated SKIN: Warm and dry. Rash on LLE, and abdomen HEAD: Normocephalic. EYES: No scleral icterus. No injection or drainage. NECK: Supple, trachea midline. No JVD or lymphadenopathy. Orally intubated CARDIOVASCULAR: Tachycardic. S1, S2 no S4 without murmur rubs. Constantine at 60 mcg/ min RESPIRATORY: Coarse crackles appreciated in all lung dean. GASTROINTESTINAL: Abdomen protuberant, nontender. Hypoactive bowel sounds. Moderate ascites on US MUSCULOSKELETAL: 2+ bilateral upper and lower extremity peripheral edema. Neuro: Sedated and intubated positive gag. Opens eyes to sternal rub, not tracking. She moves all 4 extremities spontaneously. Side: Left, Right Location: Internal, Jugular A/P Assessment and Plan ASSESSMENT Acute respiratory failure Diffuse bilateral airspace disease/HCAP Septic shock VRE bacteremia Leukocytosis, worsening Acute kidney failure on dialysis Pleural effusions s/p Right sided thoracentesis with removal 800ml pleural fluid 07/12 Anemia, thrombocytopenia Elevated LFTs Cirrhosis of the liver secondary to ETOH use. History of Hypertension. Recurrent ascites s/p paracentesis performed on June 30. s/p paracentesis on 07/12 with removal 4.3L. Plan Neuro: On Precedex infusion for sedation. Daily sedation vacation. DCd propofol and fentanyl infusions 07/23 Continue thiamine, multivitamins and folic acid. on rifaximin and Trental 400 every 8. Ammonia level 71 Add lactulose 30 ml BID Pulm: On PRVC/AC RR 14, TV 500, IT:1.0, PEEP:5, FIO2 40% Continue with vent support keep sat >90%. CPAP trials daily, but mental status will not permit extubation Bronchodilators every 6 hours, solumederol 40mg Q12. ICU vent bundle. s/p CT guided thoracentesis 07/12 with removal 800ml -transudative effusion. Pleural fluid culture- NGTD Pulm is following- Dr. Mckeon s/p bronch 07/13 (small mucus plugs removed) follow up on BAL results- NGTD. Possible need lung biopsy. Consulted CT surgery 07/21 -not a candidate for open lung biopsy per Dr. Carvajal. Ordered PEDRO, CRP and RF CV: Monitor HR and BP and maintain MAP >65 mmHg. Echo from June 22 showed an EF of 50-55%. Echo 07/15: EF 55-60%, no RWMA, mod TR. Remains on Constantine-Synephrine to keep map above 65 GI/renal: Monitor renal function, I's and O's, and electrolyte replacement Dr. Tariq. Renal US: No hydronephrosis. s/p 4000 cc with hemodialysis removed 07/23 GI: On Protonix 40 mg IV twice daily. Tube feeds with Nepro GI following for anemia and Hemoccult positive s/p CT guided paracentesis 07/12 with removal 4.3L. Follow up on cultures- NGTD Repeat bedside paracentesis 1.3 L removed 07/24 ID: Continue abx Daptomycin, micafungin and Flagyl ID is following. Added cefepime 07/24 Monitor for signs of infections(Fever and WBC). Rocephin discontinued 07/20 Strep pneumoniae and Legionella urinary antigen negative. Blood cultures 07/09: NGTD, sputum cx from 07/11: NGTD Follow up on BAL results-1 with yeast. 07/12: Peritoneal and pleural fluid cxs: NGTD Repeat urine and sputum cx. C Diff neg 07/10 Blood cx 07/21 VRE. 07/22 urine cx Gp D enterococcus source GI versus line Paracentesis today with studies sent Endo: On SSI medium scale with Accu-Chek q.6h. for glycemic control Heme: Monitor CBC, s/p FFP and platelets today. Patient received Vitamin K 10mg x1 and DDAVP on 07/19, Monitor H/H post transfusion., monitor Coags/ Fibrinogen level. GI prophylaxis with Protonix 40 mg twice a day and DVT prophylaxis with SCDs, heparin subcu held. In light of hemoptysis and heme positive stools and thrombocytopenia CCT 45 mins excluding procedures ADDENDUM: Developed SVT with rates in 160s after Vascath Placement. Chest x- ray shows appropriate placement of HD catheter. Did not respond to 5 mg of IV metoprolol. Will give Cardizem 15 mg IV push followed by Cardizem infusion. Giovani Tripp MD Jul 24, 2016 12:43
[2016-07-24] MEDS ORDERED: DILTIAZEM HCL 25 MG/5 ML VIAL IVP PRN (13:00)
[2016-07-24] MEDS: DILTIAZEM INJ 125 MG in SODIUM CHLORIDE 0.9% INJ 100 ML IV SCH (13:32)
--- NOTE | 2016-07-24 14:06 | EKG ---
Date Performed: 07/24/2016 Time Performed: 12:11:38 PTAGE: 31 years EKG: ATRIAL FLUTTER/TACHYCARDIA WITH RAPID VENTRICULAR RESPONSE MODERATE ST DEPRESSION Compared to previous tracing, the atrial flutter is new and the ST-T changes are new. ABNORMAL ECG PREVIOUS TRACING : 07/09/2016 15.36 DOCTOR: Kalin Ashley Interpretating Date/Time 07/24/2016 14:04:40
[2016-07-24 14:21] LABS: PERITONEAL FL SPECIFIC GRAVITY 1.014
[2016-07-24 14:32] LABS: PERITONEAL LYMPHS 1 %; PERITONEAL MONOS 1 %; PERITONEAL POLYS(SEGS) 98 %; PERITONEAL WBC 200 /MM3 (0-10)
--- NOTE | 2016-07-24 14:32 | HHI.PR ---
Subjective Remarks 31 YOWFw ith VDRF,Lung infilt,Pl effusion Had bronch Reintubated 07/14 On ACV Sedated with Fentanyl Worsening renal functions had HD BC Entercoccus Vas cath replaced Now in AF with RVR On cardiazem drip. Objective Vital Signs Vital Signs Date Time Temp Pulse Resp B/P Pulse Ox O2 Delivery O2 Flow Rate FiO2 07/24/16 14:00 174 07/24/16 12:37 100 30 07/24/16 12:00 164 07/24/16 12:00 30 07/24/16 10:00 108 07/24/16 08:00 30 07/24/16 08:00 113 07/24/16 07:55 100 30 07/24/16 06:00 120 07/24/16 04:26 100 40 07/24/16 04:00 111 07/24/16 04:00 40 07/24/16 04:00 96.9 112 20 111/55 100 07/24/16 02:00 115 07/24/16 01:17 100 40 07/24/16 00:00 114 07/24/16 00:00 40 07/24/16 00:00 97.2 114 18 116/58 100 07/23/16 22:30 100 40 07/23/16 22:00 110 07/23/16 22:00 115 07/23/16 20:13 100 40 07/23/16 20:00 110 07/23/16 20:00 117 07/23/16 20:00 99.0 117 14 118/60 100 07/23/16 20:00 40 07/23/16 18:00 97 07/23/16 16:00 98 07/23/16 16:00 98.2 117 17 114/58 97 07/23/16 16:00 40 07/23/16 15:30 97 40 I/O 07/23/16 07/23/16 07/23/16 07/24/16 07/24/16 07/24/16 07:00 15:00 23:00 07:00 15:00 23:00 Intake Total 594 ml 1237 ml 326 ml 760 ml Output Total 3700 ml 0 ml 0 ml Balance 594 ml -2463 ml 326 ml 760 ml IV Total 357 ml 796 ml 149 ml 262 ml Tube Feeding 441 ml 177 ml 298 ml Tube Irrigant 237 ml Other 200 ml Output Urine Total 0 ml 0 ml Stool Total 0 ml 0 ml Hemodialysis 3700 ml # Voids 0 Result Diagram: 07/24/1652007/24/16520 Objective Remarks GENERAL: MBMN WF with RF, extubated on BIPAP SKIN: Warm and dry. HEAD: Normocephalic. EYES: No scleral icterus. No injection or drainage. NECK: Supple, trachea midline. No JVD or lymphadenopathy. CARDIOVASCULAR: Regular rate and rhythm without murmurs, gallops, or rubs. RESPIRATORY: Breath sounds equal bilaterally. No accessory muscle use. Bilat rales GASTROINTESTINAL: Abdomen soft, non-tender, nondistended. MUSCULOSKELETAL: No cyanosis, ++ edema. BACK: Nontender without obvious deformity. No CVA tenderness. A/P Assessment and Plan VDRF, Reintubated 07/15 Bilat lung infilt Pleural effusion Ascitis hypoxia PLAN: vent support Cont Abx per ID Wean 02 to keep sat >90% IV Solumedrol monitor renal functions. monitor renal Functions cardiazem drip may need Amiodarone/ cardioversion Tomi Mckeon MD Jul 24, 2016 14:32
[2016-07-24] MEDS: MICAFUNGIN INJ 100 MG in SODIUM CHLORIDE 0.9% INJ 100 ML IV SCH (15:18)
[2016-07-24] MEDS: PHENYLEPHRINE INJ 160 MG in DEXTROSE 5% IN WATE 500 ML INJ 484 ML IV SCH ×2 (15:31)
[2016-07-24] MEDS ORDERED: VASOPRESSIN INJ 40 UNITS in DEXTROSE 5% IN WATER 100ML INJ 98 ML IV SCH ×2 (15:32)
[2016-07-24] MEDS: DAPTOmycin INJ 500 MG in SODIUM CHLORIDE 0.9% INJ 100 ML IV SCH (17:26)
[2016-07-24] MEDS ORDERED: AMIODARONE INJ 150 MG in DEXTROSE 5% IN WATER 100ML INJ 97 ML IV ONE ×2 (19:00)
[2016-07-24] MEDS: AMIODARONE INJ 450 MG in DEXTROSE 5% IN WATE(EXCEL) INJ 250 ML IV SCH ×2 (19:38)
[2016-07-25] VITALS (8 sets, daily range): BP systolic 84–99; BP diastolic 45–56; PULSE 80–109; RESP 20–22; TEMP 96.2–97.4; O2SAT 99–100
[2016-07-25] MEDS: DILTIAZEM INJ 125 MG in SODIUM CHLORIDE 0.9% INJ 100 ML IV SCH (01:12)
[2016-07-25] MEDS ORDERED: DEXMEDETOMIDINE INJ 1,000 MCG in SODIUM CHLOR 0.9% 250 ML INJ 240 ML IV SCH (01:45)
[2016-07-25] MEDS: INSULIN NovoLIN REGULAR SUPPLEMENTAL SCALE SQ SCH (02:09)
[2016-07-25] MEDS: AMIODARONE INJ 450 MG in DEXTROSE 5% IN WATE(EXCEL) INJ 250 ML IV SCH ×2 (02:30)
[2016-07-25] MEDS: RESP: ALBUTEROL 2.5 MG/IPRATROPIUM 0.5 MG NEB (SCH) NEB ×2 (03:50→09:13)
[2016-07-25] MEDS: DOCUSATE SODIUM 100 MG CAP PO SCH (05:36)
[2016-07-25] MEDS: PENTOXIFYLLINE 400 MG CONTROLLED RELEASE TAB PO SCH (05:36)
[2016-07-25] MEDS: metroNIDAZOLE 500 MG TAB PO SCH (05:36)
[2016-07-25] MEDS: ARTIFICIAL TEARS OPTH SOLN 15 ML BTL EACH EYE SCH (05:36)
[2016-07-25] MEDS: methylPREDNISolone SOD SUCC 40 MG/1 ML VIAL IV PUSH SCH (05:36)
[2016-07-25 07:19] LABS: BILE-PERITONEAL FLUID NEG (NEG)
[2016-07-25 08:18] LABS: HEMATOCRIT 21.1 % (35.0-46.0); MEAN CORPUSCULAR HEMOGLOBIN 31.4 PG (27.0-34.0); MEAN CORPUSCULAR HGB CONC 32.7 % (32.0-36.0); PLATELET COUNT 115 TH/MM3 (150-450); RED CELL DISTRIBUTION WIDTH 19.3 % (11.6-17.2); WHITE BLOOD COUNT 51.4 TH/MM3 (4.0-11.0)
[2016-07-25 08:22] LABS: HEMO FLAGS AUTO DIFF
--- NOTE | 2016-07-25 08:24 | HHI.CCPN ---
Subjective Remarks/Hospital Course The patient is a 31-year-old female with past medical history of ETOH hepatitis , ascites and cirrhosis of the liver with ETOH use who was admitted to [facility] on July 09 for healthcare-associated pneumonia. She had a chest x-ray on July 09 which showed diffuse consolidation and bilateral pleural effusions, likely representing pulmonary edema. The patient was recently discharged from the hospital after she was admitted back on June 10. On her prior admission she had an echocardiogram on June 22 which showed an EF of 50-55%. The patient also had paracentesis performed on June 30 with removal of 1.8 liters of ascitic fluid and she had a thoracentesis performed on the right on June 16 with removal of 800 cc of transudative pleural fluid. The patient was admitted under the hospitalists service and was started on broad -spectrum antibiotics for healthcare-associated pneumonia. A HaliCAT was called for respiratory distress and the patient was given Lasix at approximately 2 o'clock this morning and [place] [facility] Critical care medicine was consulted for respiratory distress. Her laboratory data showed worsening leukocytosis with a WBC of 25.7 from 16.2. Her BNP is 529 from 809. Ammonia level less than 10. A repeat chest x-ray showed worsening airspace process. The patient was placed on BiPAP 11/24 with 95% FIO2 and her initial saturation was 98%. When her FIO2 was weaned down she dropped her saturation and initially she refused intubation. She was just given additional Bumex 1 mg IV x1 and Solu-Medrol 80 mg IV push x1. The patient denies any nausea, vomiting or abdominal pain. 07/12 Patient was intubated yesterday for resp failure sedated with Diprivan and Fentanyl. WBC trending down. Afebrile. 07/13 Patient remains intubated and sedated with Diprivan off Fentanyl drip. s/p Right sided thoracentesis yesterday with removal 800ml pleural fluid and CT guided paracentesis with removal 4.3L. 07/14 Patient is intubated with Diprivan and Fentanyl. s/p bronch yesterday by Dr. Mckeon( small mucus plugs removed). Afebrile. 07/15 Patient s/p extubation yesterday. Placed on BIPAP overnight 11/24 with FIO2 65%. Afebrile. 07/16 Patient was reintubated yesterday for resp distress. CXR showed b/l airspace disease. Afebrile. Sedated with Diprivan and Fentanyl. 07/17 Patient is sedated with Fentanyl and intubated. Afebrile. On PRVC/AC with PEEP:10 and FIO2 50%. 07/18 Patient is sedated with Fentanyl and intubated. Renal function continue to worse with Cr: 2.96 from 2.49 with poor UO. 07/19 Patient remains sedated with Diprivan and Fentanyl. She developed ? hemoptysis and hematuria overnight 2units PRBC, 2u FFP ordered. Patient was given Vitamin K 10mg x1 and DDAVP. Hgb 6.2 this morning. Renal function is worsening with Cr: 3.47 from 2.96. On Bumex drip 0.25 mg/hr. 07/20: Tmax 99.1. No further hemoptysis noted. -2500 cc of hemodialysis yesterday. Tube feeding resume Subjective 07/21: Tmax 99.5. Hemoglobin decreased to 6.7. Transfusing 2 units and plan for hemodialysis today. Remains tachycardic with borderline systolic blood pressure. 07/22: Remains intubated sedated, on 60 g per minute of Constantine-Synephrine. Tachycardic. Hemodialysis yesterday with 4 L of fluid removed. We'll start Precedex discontinued Versed and an attempt to reduce sedation 07/23: Remains intubated, remains on 60 mcg/min of constantine. Blood cx from 07/21 VRE. Urine cx 07/22 Group D enterococcus. Currently receiving daptomycin to cover VRE. Central line was replaced 07/21/16, will remove RIJ HD catheter placed on 6/4: On Precedex, opens eyes to sternal rub. Remains on 60 mcg/min of constantine- synephrine. Moderate ascites, will tap today. Need new Vascath. WBC trending up. Cefepime started 07/25 Patient remains intubated on Neosyn, Vasopressin , Amio and Precedex drips. For HD today. Objective Vital Signs Date Time Temp Pulse Resp B/P Pulse Ox O2 Delivery O2 Flow Rate FiO2 07/25/16 06:00 107 07/25/16 04:20 100 30 07/25/16 04:00 97.1 22 99/56 Intake and Output 07/24/16 07/24/16 07/25/16 08:00 16:00 00:00 Intake Total 760 ml 613 ml 757 ml Output Total 0 ml 100 ml Balance 760 ml 613 ml 657 ml Result Diagram: 07/24/16 0521 07/24/16 0521 Other Results Laboratory Tests Test 07/24/16 07/24/16 10:36 13:20 Blood Bank Comment Peritoneal Fluid pH 8.0 Peritoneal Fluid Specific 1.014 [place] Peritoneal Fluid Bile NEG Peritoneal Fluid WBC 200 /MM3 Peritoneal Fluid RBC 5800 /MM3 Peritoneal Fluid Neutrophils 98 % Peritoneal Fluid Lymphocytes 1 % Peritoneal Fluid Monocytes 1 % Imaging Last Impressions Chest X-Ray 07/24/16 0600 Signed Impressions: Service Date/Time: Sunday, July 24, 2016 03:47 - CONCLUSION: Mild improvement in the aeration of the lungs. Mert Laurent MD Renal Ultrasound 07/17/16 0000 Signed Impressions: Service Date/Time: Sunday, July 17, 2016 10:58 - CONCLUSION: 1. Normal ultrasound appearance of the kidneys. There is no hydronephrosis. 2. Urinary bladder is not visualized. 3. There is free fluid within the abdomen and pelvis. Qasim Osuna MD Thoracentesis Ultrasound 07/12/16 0000 Signed Impressions: Service Date/Time: Tuesday, July 12, 2016 10:17 - CONCLUSION: Uncomplicated ultrasound guided thoracentesis. Garret Verma MD Cyst Biopsy Asp-Paracentesis US 07/12/16 0000 Signed Impressions: Service Date/Time: Tuesday, July 12, 2016 10:17 - CONCLUSION: Uncomplicated ultrasound guided paracentesis. Garret Verma MD Liver Ultrasound 07/11/16 0000 Signed Impressions: Service Date/Time: Monday, July 11, 2016 10:24 - CONCLUSION: Ascites and pleural effusions. Splenomegaly. Tiny gallstone or gallbladder polyp Qasim Edwards MD Chest CT 07/11/16 0000 Signed Impressions: Service Date/Time: Monday, July 11, 2016 22:37 - CONCLUSION: Bilateral pleural effusions, slight ascites and significant worsening of airspace consolidation in both lungs. Mert Laurent MD Objective Remarks GENERAL: 31-year-old female, appears critically ill currently orotracheally intubated SKIN: Warm and dry. Rash on LLE, and abdomen HEAD: Normocephalic. EYES: No scleral icterus. No injection or drainage. NECK: Supple, trachea midline. No JVD or lymphadenopathy. Orally intubated CARDIOVASCULAR: Tachycardic. S1, S2 no S4 without murmur rubs. Constantine at 60 mcg/ min RESPIRATORY: Coarse crackles appreciated in all lung dean. GASTROINTESTINAL: Abdomen protuberant, nontender. Hypoactive bowel sounds. Moderate ascites on US MUSCULOSKELETAL: 2+ bilateral upper and lower extremity peripheral edema. Neuro: Sedated and intubated positive gag. Opens eyes to sternal rub, not tracking. She moves all 4 extremities spontaneously. Side: Left, Right Location: Internal, Jugular A/P Assessment and Plan ASSESSMENT Acute respiratory failure Diffuse bilateral airspace disease/HCAP Septic shock VRE bacteremia Leukocytosis, worsening Acute kidney failure on dialysis Pleural effusions s/p Right sided thoracentesis with removal 800ml pleural fluid 07/12 Anemia, thrombocytopenia Elevated LFTs Cirrhosis of the liver secondary to ETOH use. History of Hypertension. Recurrent ascites s/p paracentesis performed on June 30. s/p paracentesis on 07/12 with removal 4.3L. Plan Neuro: On Precedex infusion for sedation. Daily sedation vacation. Continue thiamine, multivitamins and folic acid. on rifaximin and Trental 400 every 8. Recheck Ammonia level On lactulose 30 ml BID Pulm: On PRVC/AC RR 14, TV 500, IT:1.0, PEEP:5, FIO2 30%. Check ABG Continue with vent support keep sat >90%. CPAP trials daily, but mental status will not permit extubation Bronchodilators every 6 hours, solumederol 40mg Q12. ICU vent bundle. s/p CT guided thoracentesis 07/12 with removal 800ml -transudative effusion. Pleural fluid culture- NGTD Pulm is following- Dr. Mckeon s/p bronch 07/13 (small mucus plugs removed) follow up on BAL results- NGTD. Possible need lung biopsy. Consulted CT surgery 07/21 -not a candidate for open lung biopsy per Dr. Carvajal. PEDRO and RF negative CV: Monitor HR and BP and maintain MAP >65 mmHg. Echo from June 22 showed an EF of 50-55%. Echo 07/15: EF 55-60%, no RWMA, mod TR. Remains on Constantine-Synephrine and Vasopressin to keep map above 65 mmHg, On Amio drip for Aflutter with RVR GI/renal: Monitor renal function, I's and O's, and electrolyte replacement as needed Dr. Tariq. Renal US: No hydronephrosis. s/p 3.7L removed on 07/24 GI: On Protonix 40 mg IV twice daily. Tube feeds with Nepro @40ml/hr GI following for anemia and Hemoccult positive s/p CT guided paracentesis 07/12 with removal 4.3L. Follow up on cultures- NGTD Repeat paracentesis 1.3 L removed 07/24 ID: Continue abx Daptomycin, micafungin, Cefepime and Flagyl ID is following. Monitor for signs of infections(Fever and WBC). Rocephin discontinued 07/20 Strep pneumoniae and Legionella urinary antigen negative. Blood cultures 07/09: NGTD, sputum cx from 07/11: NGTD Follow up on BAL results-1 with yeast. 07/12: Peritoneal and pleural fluid cxs: NGTD Repeat urine and sputum cx. C Diff neg 07/10 Blood cx 07/21 VRE. 07/22 urine cx Gp D enterococcus source GI versus line Endo: On SSI medium scale with Accu-Chek q.6h. for glycemic control Heme: Monitor CBC, s/p FFP and platelets 07/24. Patient received Vitamin K 10mg x1 and DDAVP on 07/19, monitor Coags/ Fibrinogen level. GI prophylaxis with Protonix 40 mg twice a day and DVT prophylaxis with SCDs, heparin subcu held In light of hemoptysis and heme positive stools and thrombocytopenia CCT 35 mins excluding procedures Consult palliative care to asses with goals of care Discussed with patient's (Phu Woo) onohone patient's condition, Overall very poor prognosis given multiorgan injury Addendum: Palliative care met with and he elected to proceed with withdrawal life support and transtion to comfort care. Patient shortly after extubation. was at bedside. Thad Mccall MD Jul 25, 2016 08:24
[2016-07-25 08:47] LABS: BICARBONATE 11.9 MEQ/L (21.0-32.0); CALCIUM-PROTEIN CORRECTED 8.4 MG/DL (8.5-10.1); POTASSIUM 5.7 MEQ/L (3.5-5.1)
[2016-07-25 09:00] LABS: BANDS 7 % (0-6); CORRECTED NUCLEATED RBC 8 /100 WBC (0-0); NEUTROPHIL # MANUAL DIFF 50.9 TH/MM3 (1.8-7.7); POLYS (SEG NEUTROPHILS) 92 % (16-70); WBC DIFF SAMPLE 100
[2016-07-25] MEDS: THIAMINE HCL 100 MG TAB PO SCH (09:00)
[2016-07-25] MEDS: MULTIVITAMIN TAB PO SCH (09:00)
[2016-07-25] MEDS: guaiFENesin E.R. 600 MG TAB PO SCH (09:00)
[2016-07-25] MEDS: RIFAXIMIN 550 MG TAB PO SCH (09:00)
[2016-07-25] MEDS: PANTOPRAZOLE SODIUM 40 MG VIAL IV PUSH SCH (09:00)
[2016-07-25 09:01] LABS: PLATELET ESTIMATE SMEAR LOW (NORMAL); PLATELET MORPHOLOGY NORMAL (NORMAL); POLYCHROMASIA 3.1 % (0.0-1.9); SCAN/DIFF FINAL DIFF MANUAL
[2016-07-25 09:33] LABS: BLOOD GAS BASE EXCESS -14.5 mmol/L (-2-2); BLOOD GAS CARBOXYHEMOGLOBIN 2.2 % (0-4); BLOOD GAS HCO3 11 mmol/L (22-26); BLOOD GAS METHEMOGLOBIN 2.6 % (0-2); BLOOD GAS O2 HGB SATURATION 86 % (90-100); BLOOD GAS OXYGEN CONTENT 8.1 Vol % (12.0-20.0); BLOOD GAS PCO2 22 mmHg (38-42); BLOOD GAS PO2 68 mmHg (61-120); BLOOD GAS TOTAL HGB 6.6 G/DL (12.0-16.0); TEMP CORR TO 98.6
[2016-07-25 09:34] LABS: CRITICAL VALUE YES; OXYGEN DEVICE VENTILATOR; VENT SETTINGS 14/500/PEEP5
[2016-07-25 09:35] LABS: INTERNATIONAL NORMALIZED RATIO 1.9 RATIO; PROTHROMBIN TIME - PATIENT 21.4 SEC (9.8-11.6)
[2016-07-25 09:35] LABS: DRAW SITE RT RADIAL; FIO2 35 %; NUMBER OF ARTERIAL PUNCTURES 1; STAT NO; ULNAR PULSE PRESENT
[2016-07-25] MEDS ORDERED: INSULIN HUMAN REGULAR 1,000 UNITS/10 ML VIAL IV PUSH ONE (10:15)
[2016-07-25] MEDS ORDERED: SODIUM BICARBONATE 8.4% SOLN 50 MEQ/50 ML VIAL IV PUSH ONE (10:15)
[2016-07-25] MEDS ORDERED: SODIUM BICARBONATE 8.4% INJ 50 MEQ/50 ML SYR ONE (10:19)
--- NOTE | 2016-07-25 10:20 | PD.CONS ---
Consult Service Palliative Care . Consult Requested By Dr. Morataya . Primary Care Physician No Primary Care Physician . Reason for Consultation a. To assist with evaluation and management of symptoms including: dyspnea, pain. b. To assist medical decision maker(s) with: better understanding of current medical conditions; weighing benefits/burdens of medical treatment options; making medical treatment decisions. . HPI History of Present Illness Mrs. Woo is a 31 year old female with past medical history of cirrhosis, anxiety, alcoholic hepatitis, anemia, hypertension, pleural effusions, ascites and alcoholism. Previously admitted to [facility] 06/10/16 - 07/06/16 with ascites and pleural effusion, sepsis, pneumonia and hyperbilirubinemia. During this admission she underwent thoracentesis. CT abdomen and pelvis demonstrated enlarged fatty liver, mild splenomegaly, small to moderate ascites, cholelithiasis and small hiatal Hernia. She was discharged home with [facility] on oxygen, bronchodilators, Cefuroxime, Rifaximin and Lasix. [facility] ordered an outpatient chest xray which was reported as abnormal and she was sent to emergency room. Patient presented to [facility] ER on 07/09/16 for further evaluation of abnormal chest xray. She reported generalized fatigue, dyspnea on exertion and cough with clear-yellow sputum. Denied fever or chills. Initial ER evaluation revealed: * WBC 18.6, hemoglobin 10.2, hematocrit 30.5, platelet 165, neutrophil 89.2% * sodium 135, potassium 3.4, chloride 96, carbon dioxide 29.8, BUN 13, creatinine 0.60, GFR 115, glucose 95, calcium 8.2, magnesium 1.7 * total bilirubin 4.6, AST 114, a LT 64, alkaline phosphatase 175 * PT 15.9, INR 1.4, APTT 28.8 * total protein 5.4, albumin 2.4 * lactic acid 1.1 * toxicology screen negative * chest x-ray diffuse consolidation and bilateral pleural effusions likely representing pulmonary edema, worse compared to prior imaging. Patient is admitted with pneumonia, pulmonary edema. On 07/11/16 patient developed respiratory distress Halicat was called required intubation. Patient has had ongoing trajectory of decline since admission. She has had worsening renal function started on hemodialysis on 07/19/16. Urine culture positive VRE enterococcus faecium and radames albicans, ID following. WBC continues to rise, WBC now 51.4. Now with DIC diffuse rectal bleeding and bleeding from mouth. Hemoglobin 6.9 today. Platelets 115. Potassium 5.7, total bilirubin 3.0, AST 303 , ALT 163, alkaline phosphatase 140, ammonia 85. Patient remains intubated on mechanical ventilation. On [place]ine-Synephrine, vasopressin, amiodarone and Precedex drips. Discussed with Dr. Mccall, overall prognosis poor given multi-system organ failure. Palliative care was consulted to assist with further clarification of treatment goals. . Function/Cognitive Trajectory Spoke with spouse, Phu Woo via telephone to provide medical update. He indicates that he is on his way to the hospital, desires comfort focused care, considering withdrawal of life support, does not want blood products given, elects NO CODE. Request further conversation upon his arrival. Met with spouse, Phu at bedside. He indicates that his would no longer want to continue life-prolonging measures are procedures. He reports that the medical team "told him over a month ago that she had end-stage illness, did not believe them, now sees for himself that she is dying." He desires transition to comfort focused care with withdrawal of life support as soon as possible. He allowed some time for their 7-year-old son to see his mother and asked that we proceed with withdrawal of life support. Additional family members arrive, reportedly cousins per nurses report. Anticipatory guidance for withdrawal of life support provided, exhibits B & C signed on chart. Questions answered to family satisfaction. . Review of Systems ROS Limitations: Intubated Constitutional: COMPLAINS OF: Fatigue, Weight loss (40 pound weight loss), Change in appetite (decreased), Generalized weakness Respiratory: COMPLAINS OF: Shortness of breath Hematologic/Lymphatics: COMPLAINS OF: Bruising Psychiatric: COMPLAINS OF: Anxiety (history of anxiety) Other ROS: Patient intubated on mechanical ventilation, unable to provide ROS. Past Family Social History Coded Allergies: *MDRO Multi-Drug Resistant Organism (Verified Adverse Reaction, Unknown, VRE, 07/25/16) VRE (blood & urine) - 07/21/16 Past Medical History Cirrhosis Alcoholic hepatitis Anemia Tobacco dependence Alcohol abuse Ascites Pleural effusion Hypertension Recent admission for sepsis, pneumonia. . Past Surgical History Right arthroscopic surgery Reported Medications Reported Meds & Prescriptions Reported Meds & Active Scripts Active Furosemide 40 Mg Tab 40 Mg PO DAILY 30 Days Ventolin Hfa 18 GM Inh (Albuterol Sulfate) 90 Mcg/Act Aer 2 Puff INH Q4-6H PRN Atrovent HFA 12.9 GM Inh (Ipratropium [place]) 17 Mcg/Act Aer 2 Puff INH QID Flovent Diskus Inh (Fluticasone Powder Inh) 100 Mcg/Blist Aerp 100 Mcg INH BID Ativan (Lorazepam) 0.5 Mg Tab 0.5 Mg PO Q8HR PRN Pentoxifylline ER (Pentoxifylline) 400 Mg Tab 400 Mg PO Q8HR Xifaxan (Rifaximin) 550 Mg Tab 550 Mg PO BID Vitamin B-1 (Thiamine HCl) 100 Mg Tab 100 Mg PO DAILY Pantoprazole (Pantoprazole Sodium) 40 Mg Tab 40 Mg PO DAILY Oyster Shell Calcium (Oyster Shell) 500 Mg Tab 500 Mg PO BID Oxycodone (Oxycodone HCl) 5 Mg Tab 5 Mg PO Q6H PRN Metoprolol Tartrate 25 Mg Tab 12.5 Mg PO Q12HR Folate (Folic Acid) 1 Mg Tab 1 Mg PO DAILY Ceftin (Cefuroxime Axetil) 500 Mg Tab 500 Mg PO Q12HR . Current Medications Medications (Trade) Dose Ordered Sig/Deni Route Start Time Stop Time Status Last Admin (NS Flush) 2 ml UNSCH PRN IV FLUSH 07/09/16 16:30 07/11/16 02:14 (NS Flush) 2 ml BID IV FLUSH 07/09/16 21:00 07/24/16 20:11 (Tylenol) 650 mg Q4H PRN PO 07/09/16 16:30 (Zofran Inj) 4 mg Q6H PRN IVP 07/09/16 16:30 07/10/16 10:39 (Dulcolax Supp) 10 mg DAILY PRN RECTAL 07/09/16 16:30 (Colace) 100 mg Q12H PO 07/09/16 17:00 07/25/16 05:36 (Narcan Inj) 0.4 mg UNSCH PRN IV 07/09/16 16:30 (Mucinex Er) 600 mg BID PO 07/09/16 21:00 07/24/16 19:53 (Folate) 1 mg DAILY PO 07/10/16 09:00 07/24/16 09:23 (Spiriva Inh) 18 mcg DAILY INH 07/10/16 09:00 07/24/16 09:22 (Ativan) 0.5 mg Q8HR PRN PO 07/09/16 17:00 07/18/16 21:07 (TRENtal SR) 400 mg Q8HR PO 07/09/16 22:00 07/25/16 05:36 (Xifaxan) 550 mg BID PO 07/09/16 21:00 07/24/16 19:53 (Flovent Hfa 110 Mcg Inh) 1 puff BID INH 07/09/16 21:00 07/24/16 09:22 (Vitamin B1) 100 mg DAILY PO 07/10/16 09:00 07/24/16 09:23 (Heparin Inj) 5,000 units Q12HR SQ 07/09/16 21:00 Hold 07/19/16 08:24 (Robitussin Dm 200-20 Mg/10 ml Liq) 10 ml Q4H PRN PO 07/11/16 03:30 07/11/16 03:47 (Theragran) 1 tab DAILY PO 07/12/16 09:00 07/24/16 09:23 (SoluMEDROL INJ) 40 mg Q12H IV PUSH 07/14/16 18:00 07/25/16 05:36 (D50w (Vial) Inj) 50 ml UNSCH PRN IV 07/14/16 08:45 (Glucagon Inj) 1 mg UNSCH PRN OTHER 07/14/16 08:45 (NovoLIN R SUPPLEMENTAL SCALE) 1 Q6H SQ 07/14/16 09:00 07/25/16 02:09 ([place] 10-325 Mg) 1 tab Q6H PRN PO 07/14/16 19:00 07/15/16 10:28 Chlorhexidine Gluconate 15 ml 15 ml BID@08,20 MT 07/16/16 08:00 07/24/16 20:00 (NS 1000 ml Inj) 1,000 ml @ 0 mls/hr Q0M PRN IV 07/19/16 11:20 07/23/16 08:11 Heparin Sodium (Porcine) 8000 units 8,000 units UNSCH PRN IVF 07/19/16 11:30 Sodium Chloride 1,000 ml @ 200 mls/hr Q5H PRN IV 07/19/16 11:20 (NS 1000 ml Inj) 1,000 ml @ 0 mls/hr Q0M PRN IV 07/19/16 11:20 (Mannitol Inj) 12.5 gm UNSCH PRN IV 07/19/16 11:30 (Albumin 25% Inj) 25 gm UNSCH PRN IV 07/19/16 11:30 07/23/16 08:13 (NS Flush) 5 ml UNSCH PRN IV FLUSH 07/19/16 11:30 (Heparin Inj) UNSCH PRN .XX 07/19/16 11:30 07/23/16 08:12 (Gentamicin (Dialysis) Inj) 20 mg UNSCH PRN IV 07/19/16 11:30 07/23/16 08:13 (Zofran Inj) 4 mg UNSCH PRN IV 07/19/16 11:30 (Tylenol) 650 mg UNSCH PRN PO 07/19/16 11:30 (Benadryl) 25 mg UNSCH PRN PO 07/19/16 11:30 (Nitrostat Sl) 0.4 mg UNSCH PRN SL 07/19/16 11:30 (Catapres) 0.1 mg UNSCH PRN PO 07/19/16 11:30 (Epogen Inj) 10,000 units UNSCH PRN IV 07/19/16 11:30 07/23/16 08:12 (Gelfoam 12 Mm/7 Mm Top) 1 foam UNSCH PRN TOP 07/19/16 11:30 (Tears Naturale Opth Soln) 1 drop Q8HR EACH EYE 07/21/16 14:00 07/25/16 05:36 (Protonix Inj) 40 mg Q12HR IV PUSH 07/21/16 21:00 07/24/16 19:56 Terbutaline Sulfate 1 mg 1 mg UNSCH PRN SQ 07/21/16 14:00 (Neosynephrine Inj/D5W 500 ml Inj) 500 ml @ 0 mls/hr TITRATE IV 07/21/16 14:00 07/24/16 15:31 (NS Flush) DAILY IVF 07/21/16 14:45 07/24/16 09:00 (NS Flush) UNSCH PRN IVF 07/21/16 14:45 Metronidazole 500 mg 500 mg Q8HR PO 07/21/16 22:00 07/25/16 05:36 Micafungin Sodium 100 mg/Sodium Chloride 100 ml @ 100 mls/hr Q24H IV 07/21/16 16:00 07/24/16 15:18 Daptomycin 500 mg/ Sodium Chloride 100 ml @ 200 mls/hr Q48H IV 07/22/16 17:00 07/24/16 17:26 Cefepime HCl 1000 mg/Sodium Chloride 100 ml @ 200 mls/hr Q24H IV 07/24/16 08:00 07/24/16 09:21 Diltiazem HCl 125 mg/Sodium Chloride 125 ml @ 0 mls/hr TITRATE IV 07/24/16 12:30 07/25/16 01:12 Vasopressin 40 units/Dextrose 100 ml @ 1.5 mls/hr Q24H IV 07/24/16 15:32 07/24/16 15:55 Amiodarone HCl 450 mg/Dextrose 259 ml @ 0 mls/hr CONTINUOUS IV 07/24/16 19:00 07/25/16 02:30 (Precedex Inj/NS 250 ml Inj) 250 ml @ 0 mls/hr TITRATE IV 07/25/16 01:45 07/25/16 02:33 . Family History grew in a [facility] house. Substance Use Tobacco: previously smoked 1 pack every 2 weeks. Alcohol: Quit drinking 1 month ago when admitted. Prescription med abuse: None known. Illicits: denies. . Psychosocial History to his spouse, Phu Woo for 8 years, they have one son Stepan age 7. Patient has 4 other children - 2 sons and 2 daughters who live in [place] with their father between the ages of 8 and 14. . 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 Living Will: Never completed Health Care Surrogate: Never completed Durable Power of Tool Analyst: Never completed Health Care Surrogate(s): Patient incapacitated, will not regain capacity. According to [place] statutes , health care proxy decision-making falls to the patient's spouse. . Today's verbally stated goals: Patient incapacitated, will not regain capacity. Family/friends goals: Spouse desires transition to comfort focused care with compassion withdrawal of life support. . Ethical and Legal Issues Patient incapacitated, will not regain capacity. According to [place] statutes , health care proxy decision-making falls to the patient's spouse. . Physical Exam Vital Signs Date Time Temp Pulse Resp B/P Pulse Ox O2 Delivery O2 Flow Rate FiO2 07/25/16 09:13 99 30 07/25/16 06:00 107 07/25/16 04:20 100 30 07/25/16 04:00 97.1 109 22 99/56 100 07/25/16 04:00 107 07/25/16 04:00 30 07/25/16 03:00 97.4 102 20 97/52 100 07/25/16 02:00 80 07/25/16 01:12 100 30 07/25/16 00:00 30 07/25/16 00:00 96.2 81 20 84/45 100 07/25/16 00:00 81 07/24/16 23:00 96.8 82 21 86/47 100 07/24/16 22:12 100 30 07/24/16 22:00 83 07/24/16 20:52 100 30 07/24/16 20:00 97.1 84 21 91/53 100 07/24/16 20:00 30 07/24/16 20:00 97.1 84 21 91/53 100 07/24/16 20:00 84 07/24/16 18:00 162 07/24/16 16:13 100 30 07/24/16 16:00 30 07/24/16 16:00 98.1 86 18 75/40 100 07/24/16 16:00 155 07/24/16 14:00 174 07/24/16 12:37 100 30 07/24/16 12:00 98.5 162 18 113/57 100 07/24/16 12:00 164 07/24/16 12:00 30 07/24/16 10:00 108 07/24/16 07/25/16 19:00 07:00 Intake Total 613 ml 1517 ml Output Total 120 ml Balance 613 ml 1397 ml IV Total 500 ml 1242 ml Tube Feeding 113 ml 275 ml Output Urine Total 120 ml Stool Total 0 ml Exam CONSTITUTIONAL/GENERAL: This is critically ill patient, on mechanical ventilation. SKIN: No jaundice, rashes, or lesions. Ecchymoses on upper extremities. No wounds seen anteriorly. Skin temperature appropriate. Not diaphoretic. HEAD: Atraumatic. Normocephalic. EYES: eyes closed. ENT: unable to assess hearing. Bloody secretions from nose and mouth. NECK: Trachea midline. CARDIOVASCULAR: irregular, tachycardic. RESPIRATORY/CHEST: Symmetric, labored respirations on vent. Course scattered breath sounds. GASTROINTESTINAL: Abdomen soft, mildly distended. Bowel sounds hypoactive, + ascites. GENITOURINARY: Without palpable bladder distension. Cleaning catheter in place. MUSCULOSKELETAL: Extremities with edema. Bilateral hands and feet cold to touch. Bruising/modeling noted to hands and feet. LYMPHATICS: Not examined NEUROLOGICAL: unresponsive. PSYCHIATRIC: unresponsive. . Diagnostic Tests Laboratory Laboratory Tests Test 07/22/16 07/22/16 07/23/16 07/23/16 13:30 18:52 04:00 13:40 Urine Color RED (YELLW/STRAW) Urine Turbidity CLOUDY (CLEAR) Urine pH 7.5 (5.0-8.5) Urine Specific [place] 1.023 (1.002-1.035) Urine Protein 300 mg/dL (NEG-TRACE) Urine Glucose (UA) NEG mg/dL (NEG) Urine Ketones NEG mg/dL (NEG) Urine Occult Blood MOD (NEG) Urine Nitrite NEG (NEG) Urine Bilirubin SMALL (NEG) Urine Urobilinogen LESS THAN 2.0 MG/DL (LESS THAN 2.0) Urine Leukocyte Esterase LARGE (NEG) Urine RBC /hpf (0-3) Urine WBC /hpf (0-5) Urine WBC Clumps FEW (NONE) Urine Squamous Epithelial 1 /hpf (0-5) Cells Urine Transitional Epithelial <1 /hpf (NONE) Cells Urine Bacteria FEW /hpf (NONE) Urine Yeast with Hyphae MANY (NONE) Urine Yeast (Budding) MANY (NONE) Total Creatine Kinase 592 U/L (26-192) Creatine Kinase MB 4.9 NG/ML (0.5-3.6) Creatine Kinase MB % 0.8 % (0.0-4.0) White Blood Count 44.1 TH/MM3 37.6 TH/MM3 (4.0-11.0) (4.0-11.0) Red Blood Count 2.50 MIL/MM3 2.33 MIL/MM3 (4.00-5.30) (4.00-5.30) Hemoglobin 7.8 GM/DL 7.8 GM/DL (11.6-15.3) (11.6-15.3) Hematocrit 23.5 % 21.8 % (35.0-46.0) (35.0-46.0) Mean Corpuscular Volume 94.0 FL 93.3 FL (80.0-100.0) (80.0-100.0) Mean Corpuscular Hemoglobin 31.0 PG 33.5 PG (27.0-34.0) (27.0-34.0) Mean Corpuscular Hemoglobin 33.0 % 35.9 % Concent (32.0-36.0) (32.0-36.0) Red Cell Distribution Width 18.5 % 18.7 % (11.6-17.2) (11.6-17.2) Platelet Count 55 TH/MM3 59 TH/MM3 (150-450) (150-450) Mean Platelet Volume 12.0 FL 11.3 FL (7.0-11.0) (7.0-11.0) Neutrophils (%) (Auto) 96.1 % % (16.0-70.0) (16.0-70.0) Lymphocytes (%) (Auto) 1.9 % % (9.0-44.0) (9.0-44.0) Monocytes (%) (Auto) 1.7 % (0.0-8.0) % (0.0-8.0) Eosinophils (%) (Auto) 0.0 % (0.0-4.0) % (0.0-4.0) Basophils (%) (Auto) 0.3 % (0.0-2.0) % (0.0-2.0) Neutrophils # (Auto) 42.4 TH/MM3 TH/MM3 (1.8-7.7) (1.8-7.7) Lymphocytes # (Auto) 0.8 TH/MM3 TH/MM3 (1.0-4.8) (1.0-4.8) Monocytes # (Auto) 0.7 TH/MM3 TH/MM3 (0-0.9) (0-0.9) Eosinophils # (Auto) 0.0 TH/MM3 TH/MM3 (0-0.4) (0-0.4) Basophils # (Auto) 0.1 TH/MM3 TH/MM3 (0-0.2) (0-0.2) CBC Comment AUTO DIFF AUTO DIFF Differential Total Cells 100 100 Counted Neutrophils % (Manual) 87 % (16-70) 83 % (16-70) Band Neutrophils % 8 % (0-6) 6 % (0-6) Lymphocytes % 1 % (9-44) 3 % (9-44) Neutrophils # (Manual) 43.7 TH/MM3 35.7 TH/MM3 (1.8-7.7) (1.8-7.7) Metamyelocytes 1 % (0-1) 2 % (0-1) Myelocytes 3 % (0-0) 4 % (0-0) Nucleated Red Blood Cells 2 /100 WBC 6 /100 WBC (0-0) (0-0) Differential Comment FINAL DIFF FINAL DIFF MANUAL MANUAL Platelet Estimate LOW (NORMAL) LOW (NORMAL) Platelet Morphology Comment NORMAL NORMAL (NORMAL) (NORMAL) Stomatocytes 1+ (NORMAL) Sodium Level 136 MEQ/L (136-145) Potassium Level 4.9 MEQ/L (3.5-5.1) Chloride Level 100 MEQ/L (98-107) Carbon Dioxide Level 20.1 MEQ/L (21.0-32.0) Anion Gap 16 MEQ/L (5-15) Blood Urea Nitrogen 126 MG/DL (7-18) Creatinine 3.34 MG/DL (0.50-1.00) Estimat Glomerular Filtration 16 ML/MIN (>89) Rate Random Glucose 322 MG/DL (74-106) Calcium Level 8.0 MG/DL (8.5-10.1) Phosphorus Level 3.9 MG/DL (2.5-4.9) Total Bilirubin 2.0 MG/DL (0.2-1.0) Aspartate Amino Transf 125 U/L (15-37) (AST/SGOT) Alanine Aminotransferase 89 U/L (10-53) (ALT/SGPT) Alkaline Phosphatase 157 U/L (45-117) Total Protein 4.9 GM/DL (6.4-8.2) Albumin 2.4 GM/DL (3.4-5.0) Random Vancomycin Level 32.9 COMMENT Monocytes % 2 % (0-8) Basophilic Stippling HEAVY (NORMAL) Test 07/24/16 07/24/16 07/24/16 07/25/16 05:21 10:36 13:20 08:00 White Blood Count 43.3 TH/MM3 51.4 TH/MM3 (4.0-11.0) (4.0-11.0) Red Blood Count 2.37 MIL/MM3 2.20 MIL/MM3 (4.00-5.30) (4.00-5.30) Hemoglobin 7.9 GM/DL 6.9 GM/DL (11.6-15.3) (11.6-15.3) Hematocrit 22.3 % 21.1 % (35.0-46.0) (35.0-46.0) Mean Corpuscular Volume 94.3 FL 96.0 FL (80.0-100.0) (80.0-100.0) Mean Corpuscular Hemoglobin 33.2 PG 31.4 PG (27.0-34.0) (27.0-34.0) Mean Corpuscular Hemoglobin 35.2 % 32.7 % Concent (32.0-36.0) (32.0-36.0) Red Cell Distribution Width 18.7 % 19.3 % (11.6-17.2) (11.6-17.2) Platelet Count 61 TH/MM3 115 TH/MM3 (150-450) (150-450) Mean Platelet Volume 12.3 FL 12.3 FL (7.0-11.0) (7.0-11.0) Neutrophils (%) (Auto) % (16.0-70.0) % (16.0-70.0) Lymphocytes (%) (Auto) % (9.0-44.0) % (9.0-44.0) Monocytes (%) (Auto) % (0.0-8.0) % (0.0-8.0) Eosinophils (%) (Auto) % (0.0-4.0) % (0.0-4.0) Basophils (%) (Auto) % (0.0-2.0) % (0.0-2.0) Neutrophils # (Auto) TH/MM3 TH/MM3 (1.8-7.7) (1.8-7.7) Lymphocytes # (Auto) TH/MM3 TH/MM3 (1.0-4.8) (1.0-4.8) Monocytes # (Auto) TH/MM3 (0-0.9) TH/MM3 (0-0.9) Eosinophils # (Auto) TH/MM3 (0-0.4) TH/MM3 (0-0.4) Basophils # (Auto) TH/MM3 (0-0.2) TH/MM3 (0-0.2) CBC Comment AUTO DIFF AUTO DIFF Differential Total Cells 100 100 Counted Neutrophils % (Manual) 85 % (16-70) 92 % (16-70) Band Neutrophils % 10 % (0-6) 7 % (0-6) Lymphocytes % 1 % (9-44) 1 % (9-44) Neutrophils # (Manual) 42.9 TH/MM3 50.9 TH/MM3 (1.8-7.7) (1.8-7.7) Metamyelocytes 1 % (0-1) Myelocytes 3 % (0-0) Nucleated Red Blood Cells 4 /100 WBC 8 /100 WBC (0-0) (0-0) Differential Comment FINAL DIFF FINAL DIFF MANUAL MANUAL Platelet Estimate LOW (NORMAL) LOW (NORMAL) Platelet Morphology Comment NORMAL NORMAL (NORMAL) (NORMAL) Sodium Level 137 MEQ/L 134 MEQ/L (136-145) (136-145) Potassium Level 4.5 MEQ/L 5.7 MEQ/L (3.5-5.1) (3.5-5.1) Chloride Level 99 MEQ/L 97 MEQ/L (98-107) (98-107) Carbon Dioxide Level 21.8 MEQ/L 11.9 MEQ/L (21.0-32.0) (21.0-32.0) Anion Gap 16 MEQ/L (5-15) 25 MEQ/L (5-15) Blood Urea Nitrogen 111 MG/DL 144 MG/DL (7-18) (7-18) Creatinine 3.03 MG/DL 3.79 MG/DL (0.50-1.00) (0.50-1.00) Estimat Glomerular Filtration 18 ML/MIN (>89) 14 ML/MIN (>89) Rate Random Glucose 369 MG/DL 347 MG/DL (74-106) (74-106) Calcium Level 7.0 MG/DL 7.1 MG/DL (8.5-10.1) (8.5-10.1) Protein Corrected Calcium 8.1 MG/DL 8.4 MG/DL (8.5-10.1) (8.5-10.1) Magnesium Level 2.1 MG/DL (1.5-2.5) Total Bilirubin 2.3 MG/DL 3.0 MG/DL (0.2-1.0) (0.2-1.0) Aspartate Amino Transf 136 U/L (15-37) 303 U/L (15-37) (AST/SGOT) Alanine Aminotransferase 100 U/L (10-53) 163 U/L (10-53) (ALT/SGPT) Alkaline Phosphatase 171 U/L 140 U/L (45-117) (45-117) Ammonia 71 MCMOL/L (11-32) Total Protein 5.1 GM/DL 4.8 GM/DL (6.4-8.2) (6.4-8.2) Albumin 2.9 GM/DL 2.7 GM/DL (3.4-5.0) (3.4-5.0) Blood Bank Comment Peritoneal Fluid pH 8.0 Peritoneal Fluid Specific 1.014 [place] Peritoneal Fluid Bile NEG (NEG) Peritoneal Fluid WBC 200 /MM3 (0-10) Peritoneal Fluid RBC 5800 /MM3 (0-0) Peritoneal Fluid Neutrophils 98 % Peritoneal Fluid Lymphocytes 1 % Peritoneal Fluid Monocytes 1 % Polychromasia 3.1 % (0.0-1.9) Test 07/25/16 07/25/16 09:00 09:15 Prothrombin Time 21.4 SEC (9.8-11.6) Prothromb Time International 1.9 RATIO Ratio Fibrinogen 214 mg/dL (227-377) Ammonia 85 MCMOL/L (11-32) Blood Type A NEGATIVE Blood Gas Puncture Site RT RADIAL Blood Gas Patient Temperature 98.6 Blood Gas HCO3 11 mmol/L (22-26) Blood Gas Base Excess -14.5 mmol/L (-2-2) Blood Gas Oxygen Saturation 86 % (90-100) Arterial Blood pH 7.30 (7.380-7.420) Arterial Blood Partial 22 mmHg (38-42) Pressure CO2 Arterial Blood Partial 68 mmHg Pressure O2 (61-120) Arterial Blood Oxygen Content 8.1 Vol % (12.0-20.0) Arterial Blood 2.2 % (0-4) Carboxyhemoglobin Arterial Blood Methemoglobin 2.6 % (0-2) Blood Gas Hemoglobin 6.6 G/DL (12.0-16.0) Oxygen Delivery Device VENTILATOR Blood Gas Ventilator Setting 14/500/PEEP5 Blood Gas Inspired Oxygen 35 % Result Diagram: 07/25/16 0800 07/25/16 0800 Microbiology Microbiology Date/Time Procedure Status Source Growth 07/22/16 13:30 Gram Stain - Final Complete Sputum Endotracheal 07/22/16 13:30 Sputum Culture - Final Complete Sputum Endotracheal HEAVY GROWTH NORMAL RESPIRATORY KYLE 07/22/16 13:30 Urine Culture - Final Complete Urine Catheterized Urine Enterococcus Faecium Vre Radames Albicans 07/22/16 18:00 Aerobic Blood Culture - Preliminary Resulted Blood Peripheral NO GROWTH IN 2 DAYS 07/22/16 18:00 Anaerobic Blood Culture - Preliminary Resulted Blood Peripheral NO GROWTH IN 2 DAYS 07/22/16 18:20 Aerobic Blood Culture - Preliminary Resulted Blood Line NO GROWTH IN 2 DAYS 07/22/16 18:20 Anaerobic Blood Culture - Preliminary Resulted Blood Line NO GROWTH IN 2 DAYS 07/24/16 13:20 Gram Stain - Final Resulted Fluid Peritoneal Fluid 07/24/16 13:20 Body Fluid Culture Resulted Fluid Peritoneal Fluid Pending 07/24/16 13:20 Acid Fast Stain Received Fluid Peritoneal Fluid Pending 07/24/16 13:20 Mycobacterial Culture Received Fluid Peritoneal Fluid Pending 07/24/16 13:20 Fungal Smear - Final Resulted Fluid Peritoneal Fluid NO FUNGAL ELEMENTS SEEN. 07/24/16 13:20 Fungal Culture Resulted Fluid Peritoneal Fluid Pending Imaging Last Impressions Chest X-Ray 07/24/16 0600 Signed Impressions: Service Date/Time: Sunday, July 24, 2016 03:47 - CONCLUSION: Mild improvement in the aeration of the lungs. eMrt Laurent MD Renal Ultrasound 07/17/16 0000 Signed Impressions: Service Date/Time: Sunday, July 17, 2016 10:58 - CONCLUSION: 1. Normal ultrasound appearance of the kidneys. There is no hydronephrosis. 2. Urinary bladder is not visualized. 3. There is free fluid within the abdomen and pelvis. Qasim Osuna MD Thoracentesis Ultrasound 07/12/16 0000 Signed Impressions: Service Date/Time: Tuesday, July 12, 2016 10:17 - CONCLUSION: Uncomplicated ultrasound guided thoracentesis. Garret Verma MD Cyst Biopsy Asp-Paracentesis US 07/12/16 0000 Signed Impressions: Service Date/Time: Tuesday, July 12, 2016 10:17 - CONCLUSION: Uncomplicated ultrasound guided paracentesis. Garret Verma MD Liver Ultrasound 07/11/16 0000 Signed Impressions: Service Date/Time: Monday, July 11, 2016 10:24 - CONCLUSION: Ascites and pleural effusions. Splenomegaly. Tiny gallstone or gallbladder polyp Qasim Edwards MD Chest CT 07/11/16 0000 Signed Impressions: Service Date/Time: Monday, July 11, 2016 22:37 - CONCLUSION: Bilateral pleural effusions, slight ascites and significant worsening of airspace consolidation in both lungs. Mert Laurent MD . Procedures * 06/10/16 - MRCP - hepatosplenomegaly. - Ascites - cannot rule out cholecystitis * 06/10/16 - HIDA scan - negative for cholecystitis * 06/16/16 - right thoracentesis 800 mL transudative * 06/30/16 - therapeutic paracentesis -1800 cc Patient/Family Conference Present at Family Conference: Spoke with spouse via telephone and later in person. Family Conference Time (mins): 60 Family Conference Location: Bedside Issues Discussed: * Palliative care role, purpose, approach * Additional medical, psychosocial, and spiritual history * Patients general health, functional status, and cognitive changes in the months leading up to the current hospitalization * Patient/family understanding of the current medical problems * Patient/family understanding of prognosis * Patients goals of care as best understood from advance directives and/or conversations and/or values * Current medical treatment options and benefits/burdens of those options * Likely scenarios comparing ongoing aggressive care with a transition to comfort measures only * Questions answered to the best of my ability * Palliative care contact information provided Met with spousePhu at bedside. He indicates that his would no longer want to continue life-prolonging measures are procedures. He reports that the medical team "told him over a month ago that she had end-stage illness, did not believe them, now sees for himself that she is dying." He desires transition to comfort focused care with withdrawal of life support as soon as possible. He allowed some time for their 7-year-old son to see his mother and asked that we proceed with withdrawal of life support. Additional family members arrive, reportedly cousins per nurses report. Anticipatory guidance for withdrawal of life support provided, exhibits B & C signed on chart. Questions answered to family satisfaction. Assessment and Plan Disease Oriented Problem List: (1) DIC (disseminated intravascular coagulation) (2) Acute respiratory failure (3) HCAP (healthcare-associated pneumonia) (4) Acute renal failure on dialysis (5) Elevated LFTs (6) Pneumonia (7) Ascites (8) Hyperkalemia (9) Sepsis (10) Hyperbilirubinemia (11) Pleural effusion (12) GI bleed (13) Thrombocytopenia (14) VRE bacteremia (15) Leukocytosis (16) Septic shock (17) Cirrhosis Symptom Scale: (1) Pain 0-10 Scale: Unable to quantify (2) Dyspnea 0-10 Scale: Unable to quantify Pertinent Non-Medical Issues Psychosocial: . Lives with her and son. Spiritual: Legal: Patient currently incapacitated, uncertain if she will regain capacity. According to [place] statutes, health care proxy decision-making falls to the patient's spouse, Dagoberto Woo. Ethical issues impacting care: no known concerns at this time. . Important Contacts * Phu Woo, spouse/HCP: [phone] . Prognosis This is an unfortunate 31-year-old female with multisystem organ failure, including respiratory, liver, renal failure. Overall prognosis poor for meaningful recovery. . Code Status: No Code Plan * Decision Maker: Patient currently incapacitated, uncertain if she will regain capacity. According to [place] statutes, health care proxy decision-making falls to the patient's spouse, Dagoberto Woo. * NO CODE * Palliative care met with patient/ family: Spoke with spouse via phone, he will be here within the hour. He desires "keep her comfortable, I understand she is not going to survive this time." No further escalation of care. Considering withdrawal of life support. Palliative care met with spouse and son. Spouse has elected to proceed with withdrawal of life support and transition to comfort measures only. Anticipatory guidance provided. Declines hospice at this time. Chaplain Weinstein following. * Exhibits B & C on chart signed. * Orders written for withdrawal of life support/comfort focused care. * Spouse will need Indigent Cremation assistance, palliative care SW (Jessie Egan) will complete paperwork after patient dies. * SYMPTOMS: Pain: due to prolonged hospitalization, intubation, liver, renal and heart failure. On vent. Dysp[facility]: [facility] * Palliative care number provided. * Palliative care will continue to follow throughout hospital course to assist with symptom management and clarification of goals as needed. . Thank you for the opportunity to participate in the care of Ms. Woo. Attestation To help prompt me to consider important information that might be impacting today's encounter and assessment, information from prior notes written by myself or my colleagues may have been "brought forward" into today's note. My signature on this note, however, is an attestation that I personally performed the exam, history, and/or decision-making noted today, and, unless otherwise indicated, the interactions with patient, family, and staff as well as the review of records all occurred today. I also attest that the listed assessment and stated plan reflect my best clinical judgment today based on the combination of historical information, prior notes, and today's exam/ interactions. When time spent is documented, it refers only to time spent today by the signer, or if indicated, combined time spent today by collaborating physician/nurse practitioner. GARCIA TOBIN Jul 25, 2016 10:20
[2016-07-25] MEDS ORDERED: PHYTONADIONE INJ 10 MG in SODIUM CHLORIDE 0.9% INJ 50 ML IV ONE (10:30)
[2016-07-25 10:55] LABS: HEPARIN INDUCED PLATELET AB NEGATIVE (NEGATIVE)
[2016-07-25 10:56] LABS: HEPARIN AB OD 0.066 O.D. (0.000-0.300)
--- NOTE | 2016-07-25 11:16 | HHI.NPPN ---
Subjective History of Present Illness 31-year-old with a history of cirrhosis, pneumonia, respiratory failure intubated Objective Data Data 07/24/16 07/25/16 19:00 07:00 Intake Total 613 ml 1517 ml Output Total 120 ml Balance 613 ml 1397 ml IV Total 500 ml 1242 ml Tube Feeding 113 ml 275 ml Output Urine Total 120 ml Stool Total 0 ml Vital Signs Date Time Temp Pulse Resp B/P Pulse Ox O2 Delivery O2 Flow Rate FiO2 07/25/16 09:13 99 30 07/25/16 06:00 107 07/25/16 04:20 100 30 07/25/16 04:00 97.1 109 22 99/56 100 07/25/16 04:00 107 07/25/16 04:00 30 07/25/16 03:00 97.4 102 20 97/52 100 07/25/16 02:00 80 07/25/16 01:12 100 30 07/25/16 00:00 30 07/25/16 00:00 96.2 81 20 84/45 100 07/25/16 00:00 81 07/24/16 23:00 96.8 82 21 86/47 100 07/24/16 22:12 100 30 07/24/16 22:00 83 07/24/16 20:52 100 30 07/24/16 20:00 97.1 84 21 91/53 100 07/24/16 20:00 30 07/24/16 20:00 97.1 84 21 91/53 100 07/24/16 20:00 84 07/24/16 18:00 162 07/24/16 16:13 100 30 07/24/16 16:00 30 07/24/16 16:00 98.1 86 18 75/40 100 07/24/16 16:00 155 07/24/16 14:00 174 07/24/16 12:37 100 30 07/24/16 12:00 98.5 162 18 113/57 100 07/24/16 12:00 164 07/24/16 12:00 30 -: 07/25/16 0800 07/25/16 0800 Microbiology 07/24/16 Gram Stain - Final, Resulted 07/24/16 Body Fluid Culture, Resulted Pending 07/24/16 Acid Fast Stain, Received Pending 07/24/16 Mycobacterial Culture, Received Pending 07/24/16 Fungal Smear - Final, Resulted NO FUNGAL ELEMENTS SEEN. 07/24/16 Fungal Culture, Resulted Pending Physical Exam General Appearance: Well Developed Eyes Eye Exam: Pupils Equal Neck Neck Exam: Neck Supple Pulmonary Resp Exam: Decreased Bases Cardiology CV Exam: Tachycardia Gastrointestinal/Abdomen GI Exam: Soft, Distended Extremeties Extremities Exam: Pitting Edema, Dependent Edema Assessment/Plan Problem List: (1) Acute renal failure Plan: Patient has liver dysfunction along with that she has pneumonia, she is third spacing and has low albumin on dialysis hemodialysis next today as hyperkalemia but I was told by Stephanie TAFOYAfamily literacy coordinator refused BT and wants comfort measure only, palliative following ARDS (2) Hyperkalemia Plan: resolved (3) Pneumonia Plan: She is on antibiotics and infectious disease is following Patient is on ventilator (4) Ascites Plan: Due to alcoholic hepatitis Problem Qualifiers (1) Acute renal failure: Qualified Code: N17.9 - Acute renal failure, unspecified acute renal failure type (2) Pneumonia: Qualified Code: J18.9 - Pneumonia of both lungs due to infectious organism, unspecified part of lung Eve Tariq MD Jul 25, 2016 11:16
[2016-07-25] MEDS ORDERED: MORPHINE SULFATE 8 MG/ML INJ IV PUSH ONE (12:45)
[2016-07-25] MEDS ORDERED: LORazepam 2 MG/ML VIAL IV ONE ×2 (12:45→13:00)
[2016-07-25] MEDS ORDERED: HYOSCYAMINE 0.125 MG TAB PO/SL ONE (12:45)
--- NOTE | 2016-07-25 12:54 | HHI.GIFU ---
Subjective Remarks Pt on vent. Per RN has profuse melena/lower GIB bleeding today. (Harika Lucero) Objective Vitals I&O Vital Signs Date Time Temp Pulse Resp B/P Pulse Ox O2 Delivery O2 Flow Rate FiO2 07/25/16 09:13 99 30 07/25/16 06:00 107 07/25/16 04:20 100 30 07/25/16 04:00 97.1 109 22 99/56 100 07/25/16 04:00 107 07/25/16 04:00 30 07/25/16 03:00 97.4 102 20 97/52 100 07/25/16 02:00 80 07/25/16 01:12 100 30 07/25/16 00:00 30 07/25/16 00:00 96.2 81 20 84/45 100 07/25/16 00:00 81 07/24/16 23:00 96.8 82 21 86/47 100 07/24/16 22:12 100 30 07/24/16 22:00 83 07/24/16 20:52 100 30 07/24/16 20:00 97.1 84 21 91/53 100 07/24/16 20:00 30 07/24/16 20:00 97.1 84 21 91/53 100 07/24/16 20:00 84 07/24/16 18:00 162 07/24/16 16:13 100 30 07/24/16 16:00 30 07/24/16 16:00 98.1 86 18 75/40 100 07/24/16 16:00 155 07/24/16 14:00 174 I/O 07/24/16 07/24/16 07/24/16 07/25/16 07/25/16 07/25/16 07:00 15:00 23:00 07:00 15:00 23:00 Intake Total 760 ml 613 ml 757 ml 760 ml Output Total 0 ml 100 ml 20 ml Balance 760 ml 613 ml 657 ml 740 ml IV Total 262 ml 500 ml 482 ml 760 ml Tube Feeding 298 ml 113 ml 275 ml Other 200 ml Output Urine Total 100 ml 20 ml Stool Total 0 ml 0 ml 0 ml # Voids 0 Laboratory Laboratory Tests Test 07/24/16 07/25/16 07/25/16 07/25/16 13:20 08:00 09:00 09:15 Peritoneal Fluid pH 8.0 Peritoneal Fluid Specific 1.014 [place] Peritoneal Fluid Bile NEG Peritoneal Fluid WBC 200 Peritoneal Fluid RBC 5800 Peritoneal Fluid Neutrophils 98 Peritoneal Fluid Lymphocytes 1 Peritoneal Fluid Monocytes 1 White Blood Count 51.4 Red Blood Count 2.20 Hemoglobin 6.9 Hematocrit 21.1 Mean Corpuscular Volume 96.0 Mean Corpuscular Hemoglobin 31.4 Mean Corpuscular Hemoglobin 32.7 Concent Red Cell Distribution Width 19.3 Platelet Count 115 Mean Platelet Volume 12.3 Neutrophils (%) (Auto) Lymphocytes (%) (Auto) Monocytes (%) (Auto) Eosinophils (%) (Auto) Basophils (%) (Auto) Neutrophils # (Auto) Lymphocytes # (Auto) Monocytes # (Auto) Eosinophils # (Auto) Basophils # (Auto) CBC Comment AUTO DIFF Differential Total Cells 100 Counted Neutrophils % (Manual) 92 Band Neutrophils % 7 Lymphocytes % 1 Neutrophils # (Manual) 50.9 Nucleated Red Blood Cells 8 Differential Comment FINAL DIFF MANUAL Platelet Estimate LOW Platelet Morphology Comment NORMAL Polychromasia 3.1 Sodium Level 134 Potassium Level 5.7 Chloride Level 97 Carbon Dioxide Level 11.9 Anion Gap 25 Blood Urea Nitrogen 144 Creatinine 3.79 Estimat Glomerular Filtration 14 Rate Random Glucose 347 Calcium Level 7.1 Protein Corrected Calcium 8.4 Total Bilirubin 3.0 Aspartate Amino Transf 303 (AST/SGOT) Alanine Aminotransferase 163 (ALT/SGPT) Alkaline Phosphatase 140 Total Protein 4.8 Albumin 2.7 Prothrombin Time 21.4 Prothromb Time International 1.9 Ratio Fibrinogen 214 Ammonia 85 Blood Type A NEGATIVE Antibody Screen NEGATIVE Crossmatch Leukocyte-Reduced Red Blood Cells Blood Bank Comment Blood Gas Puncture Site RT RADIAL Blood Gas Patient Temperature 98.6 Blood Gas HCO3 11 Blood Gas Base Excess -14.5 Blood Gas Oxygen Saturation 86 Arterial Blood pH 7.30 Arterial Blood Partial 22 Pressure CO2 Arterial Blood Partial 68 Pressure O2 Arterial Blood Oxygen Content 8.1 Arterial Blood 2.2 Carboxyhemoglobin Arterial Blood Methemoglobin 2.6 Blood Gas Hemoglobin 6.6 Oxygen Delivery Device VENTILATOR Blood Gas Ventilator Setting 14/500/PEEP5 Blood Gas Inspired Oxygen 35 Test 07/25/16 10:02 Blood Bank Comment Date/Time Procedure Status Source Growth 07/24/16 13:20 Gram Stain - Final Resulted Fluid Peritoneal Fluid 07/24/16 13:20 Body Fluid Culture - Preliminary Resulted Fluid Peritoneal Fluid NO GROWTH IN 24 HOURS. 07/24/16 13:20 Fungal Smear - Final Resulted Fluid Peritoneal Fluid NO FUNGAL ELEMENTS SEEN. 07/24/16 13:20 Fungal Culture Resulted Fluid Peritoneal Fluid Pending 07/24/16 13:20 Acid Fast Stain Received Fluid Peritoneal Fluid Pending 07/24/16 13:20 Mycobacterial Culture Received Fluid Peritoneal Fluid Pending 07/22/16 18:20 Aerobic Blood Culture - Preliminary Resulted Blood Line NO GROWTH IN 3 DAYS 07/22/16 18:20 Anaerobic Blood Culture - Preliminary Resulted Blood Line NO GROWTH IN 3 DAYS 07/22/16 13:30 Urine Culture - Final Complete Urine Catheterized Urine Enterococcus Faecium Vre Ольга Albicans 07/21/16 18:05 Aerobic Blood Culture - Final Complete Blood Line Enterococcus Faecium Vre 07/21/16 18:05 Anaerobic Blood Culture - Final Complete Enterococcus Faecium Vre Imaging Last Impressions Chest X-Ray 07/24/16 0600 Signed Impressions: Service Date/Time: Sunday, July 24, 2016 03:47 - CONCLUSION: Mild improvement in the aeration of the lungs. K. Antwon Laurent MD Renal Ultrasound 07/17/16 0000 Signed Impressions: Service Date/Time: Sunday, July 17, 2016 10:58 - CONCLUSION: 1. Normal ultrasound appearance of the kidneys. There is no hydronephrosis. 2. Urinary bladder is not visualized. 3. There is free fluid within the abdomen and pelvis. Qasim Osuna MD Thoracentesis Ultrasound 07/12/16 0000 Signed Impressions: Service Date/Time: Tuesday, July 12, 2016 10:17 - CONCLUSION: Uncomplicated ultrasound guided thoracentesis. Garret Verma MD Cyst Biopsy Asp-Paracentesis US 07/12/16 0000 Signed Impressions: Service Date/Time: Tuesday, July 12, 2016 10:17 - CONCLUSION: Uncomplicated ultrasound guided paracentesis. Garret Verma MD Liver Ultrasound 07/11/16 0000 Signed Impressions: Service Date/Time: Monday, July 11, 2016 10:24 - CONCLUSION: Ascites and pleural effusions. Splenomegaly. Tiny gallstone or gallbladder polyp Qasim Edwards MD Chest CT 07/11/16 0000 Signed Impressions: Service Date/Time: Monday, July 11, 2016 22:37 - CONCLUSION: Bilateral pleural effusions, slight ascites and significant worsening of airspace consolidation in both lungs. K. Antwon Shamlou, MD Physical Exam HEENT: normocephalic; atraumatic; dried blood mouth CHEST: Coarse crackles in all lung dean CARDIAC: tachycardic. ABDOMEN: Soft, nondistended, nontender; no hepatosplenomegaly; BS hypoactive. dark red stool visualized EXTREMITIES: No clubbing, cyanosis, 2+edema. SKIN: pale; no rash; mild jaundice. 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 Hgb 6.9, copious melena. s/p 2 x FFP, 2 x RBC - thrombocytopenia, coagulopathy - poss DIC - alcoholic cirrhosis - pt heavy drinker. prev liver w/u neg for hepatitis, autoimmune cause of liver dz - leukocytosis - WBC 51.4 and worsening. ID following. - Acute renal failure- s/p hemodialysis, nephrology on the case PLAN - no procedures at this time - supportive care - GI will sign off This pt seen by myself and Dr Oconnor and this note is written on his behalf (Harika Lucero) Physician Comments As above, please notify us if needed. (Sudhakar Oconnor MD) Harika Lucero Jul 25, 2016 12:54 Sudhakar Oconnor MD Jul 25, 2016 14:10
[2016-07-25] MEDS ORDERED: MORPHINE SULFATE 4 MG/ML INJ IV ONE (13:00)
[2016-07-25] MEDS ORDERED: LORazepam 2 MG/ML VIAL IV PRN ×2 (13:15)
[2016-07-25] MEDS ORDERED: FUROSEMIDE 20 MG/2 ML VIAL IV PRN (13:15)
[2016-07-25] MEDS ORDERED: MORPHINE SULFATE 8 MG/ML INJ IV PUSH PRN (13:15)
[2016-07-25] MEDS ORDERED: ACETAMINOPHEN 650 MG SUPP RECTAL PRN (13:15)
[2016-07-25] MEDS ORDERED: MORPHINE SULFATE 4 MG/ML INJ IV PRN (13:15)
[2016-07-25] MEDS ORDERED: LORazepam 2 MG/ML VIAL IVS PRN (13:15)
[2016-07-25] MEDS ORDERED: LORazepam 2 MG/ML VIAL IV SCH (16:00)
[2016-07-25] MEDS ORDERED: MORPHINE SULFATE 4 MG/ML INJ IV SCH (16:00)
[2016-07-26 04:50] LABS: BODY FLUID LDH 122 U/L (()); BODY FLUID LDH SOURCE PERITONEAL (())
[2016-07-28 17:52] LABS: CD 19 PERCENT 27 % (6-29); CD3 ABSOLUTE 300 (840-3060); CD4/CD8 RATIO 1.5 (0.86-5.00); CD8 ABSOLUTE 114 (180-1170); LYMPHOCYTES, ABSOLUTE 561 (850-3900)
[2016-07-30 17:51] LABS: HIV 1 PROVIRAL DNA Not Detected (Not Detected)
--- NOTE | 2016-08-08 12:54 | MD ---
cc: AV PEREZ M.D. ADMISSION DATE: 07/09/2016 DISCHARGE DATE: 07/25/2016 DATE OF : 1985 BRIEF HISTORY AND HOSPITAL COURSE The patient is a 31-year-old female with a history of ETOH hepatitis, ascites and cirrhosis of the liver secondary to ETOH use. She presented to [facility] on July 09 for healthcare-associated pneumonia. A chest x-ray on admission showed diffuse consolidation with bilateral pleural effusions. She was recently discharged from the hospital after she was admitted back on June 10. On her prior admission she had an echocardiogram which showed an EF of 50-55% and a paracentesis performed on June 30 with removal of 1.8 liters of ascitic fluid. She also had thoracentesis on the right on June 16 with removal of 800 cc of transudative pleural fluid. She was initially admitted under the hospitalist service and started on broad-spectrum antibiotics for healthcare-associated pneumonia. [facility] was called for respiratory distress and she was given Lasix and transferred to [facility]. Critical care medicine was consulted for critical care management. Her laboratory data showed worsening leukocytosis. A repeat chest x-ray showed worsening airspace disease. She was initially placed on BiPAP. Due to worsening respiratory status the patient was intubated and placed on Diprivan and fentanyl infusion for sedation. She underwent CT-guided paracentesis with removal of 4.3 liters. On July 13 the patient underwent a bronchoscopy by Dr. Mckeon from the pulmonary service and small mucous plugs were removed. She was extubated on July 14 and placed on BiPAP; however, she was reintubated on July 15 for respiratory failure. Her chest x-ray showed diffuse bilateral airspace disease. Her ICU course was complicated with worsening renal function. The patient also developed hemoptysis and hematuria on July 19 and she was given two units of blood, two units of fresh frozen plasma, vitamin-K and DDAVP. The patient was initially started on a Bumex drip per the nephrology service without any significant improvement of her renal function. She was eventually started on hemodialysis. The patient was on thiamine, multivitamins and folic acid. In addition she was on rifaximin and fentanyl in addition to lactulose. From a pulmonary standpoint she was on bronchodilators and IV steroids. The patient was seen by cardiothoracic surgery on July 21 for possible open lung biopsy, however, she deemed not a candidate per Dr. Shea. A repeat echocardiogram on July 15 was performed which showed an EF of 55-60% and moderate TR. Due to hemodynamic stability and septic shock the patient was started on pressors in the form of [place]-Synephrine and vasopressin to maintain MAP greater than 65 mmHg. Also, she was on an amiodarone drip for atrial flutter RVR. She received tube feeds in the form of Nepro at 40 mL an hour. A repeat paracentesis was performed on July 24 with removal of 1.3 liters. The patient was also followed up by the infectious disease service and was on broad-spectrum antibiotics in the form of daptomycin, micafungin and cefepime. Her strep pneumoniae and Legionella urinary antigen were negative and her peritoneal and pleural fluid cultures were negative as well. She also had a negative C. difficile on July 10. On July 21 her blood culture grew VRE and urine culture from July 22 grew group-D enterococcus. The patient was on Protonix 40 mg twice a day for GI prophylaxis and SCDs for DVT prophylaxis. Her subcu heparin was discontinued in light of hemoptysis, thrombocytopenia and guaiac-positive stool. Palliative Care was consulted to assist with goals of care. After discussion with the patient's on the phone and given hemodynamic instability and multiorgan failure, the patient's elected to proceed with withdrawal of life support and transition to comfort care. The patient shortly after extubation and her was at the bedside. She on July 25. MD JAYANT Wheatley/GUILLE /3:44 PM /12:44 PM
== END 2016-07-25 13:28 | disposition expired | DRG 207 ==
LOC: NEPC 14:40 → NEDA 16:24 → N04A 18:55 → HIMN 07-11 05:50
PROVIDERS: ADMIT Internal Medicine; ATTEND Internal Medicine
PROC: 5A1945Z Respiratory Ventilation, 24-96 Consecutive Hours (ICD-10-PCS; 2016-07-11)
PROC: 0BH17EZ Insertion of Endotracheal Airway into Trachea, Via Natural or Artificial Opening (ICD-10-PCS; 2016-07-11)
PROC: 0W9G3ZX Drainage of Peritoneal Cavity, Percutaneous Approach, Diagnostic (ICD-10-PCS; 2016-07-12)
PROC: 0W993ZZ Drainage of Right Pleural Cavity, Percutaneous Approach (ICD-10-PCS; 2016-07-12)
PROC: 0W9G3ZZ Drainage of Peritoneal Cavity, Percutaneous Approach (ICD-10-PCS; 2016-07-12)
PROC: 0BC88ZZ Extirpation of Matter from Left Upper Lobe Bronchus, Via Natural or Artificial Opening Endoscopic (ICD-10-PCS; 2016-07-13)
PROC: 0BC48ZZ Extirpation of Matter from Right Upper Lobe Bronchus, Via Natural or Artificial Opening Endoscopic (ICD-10-PCS; 2016-07-13)
PROC: 5A1955Z Respiratory Ventilation, Greater than 96 Consecutive Hours (ICD-10-PCS; principal; 2016-07-15)
PROC: 0BH17EZ Insertion of Endotracheal Airway into Trachea, Via Natural or Artificial Opening (ICD-10-PCS; 2016-07-15)
PROC: 02HV33Z Insertion of Infusion Device into Superior Vena Cava, Percutaneous Approach (ICD-10-PCS; 2016-07-19)
PROC: B543ZZA Ultrasonography of Right Jugular Veins, Guidance (ICD-10-PCS; 2016-07-19)
PROC: 30233K1 Transfusion of Nonautologous Frozen Plasma into Peripheral Vein, Percutaneous Approach (ICD-10-PCS; 2016-07-19)
PROC: 30233N1 Transfusion of Nonautologous Red Blood Cells into Peripheral Vein, Percutaneous Approach (ICD-10-PCS; 2016-07-19)
PROC: 5A1D60Z (ICD-10-PCS; 2016-07-19)
PROC: 02HV33Z Insertion of Infusion Device into Superior Vena Cava, Percutaneous Approach (ICD-10-PCS; 2016-07-21)
PROC: B544ZZA Ultrasonography of Left Jugular Veins, Guidance (ICD-10-PCS; 2016-07-21)
PROC: 0W9G3ZZ Drainage of Peritoneal Cavity, Percutaneous Approach (ICD-10-PCS; 2016-07-24)
PROC: 02HV33Z Insertion of Infusion Device into Superior Vena Cava, Percutaneous Approach (ICD-10-PCS; 2016-07-24)
DX: J18.9 Pneumonia, unspecified organism (principal); D65 Disseminated intravascular coagulation [defibrination syndrome]; A41.81 Sepsis due to Enterococcus; J96.01 Acute respiratory failure with hypoxia; R65.21 Severe sepsis with septic shock; G93.40 Encephalopathy, unspecified; J90 Pleural effusion, not elsewhere classified; Z51.5 Encounter for palliative care; N17.9 Acute kidney failure, unspecified; I50.9 Heart failure, unspecified; E87.3 Alkalosis; D61.818 Other pancytopenia; K92.1 Melena; K52.1 Toxic gastroenteritis and colitis; R04.2 Hemoptysis; I47.1 Supraventricular tachycardia; K70.11 Alcoholic hepatitis with ascites; K70.31 Alcoholic cirrhosis of liver with ascites; F10.20 Alcohol dependence, uncomplicated; I11.0 Hypertensive heart disease with heart failure; D53.9 Nutritional anemia, unspecified; I07.1 Rheumatic tricuspid insufficiency; E87.5 Hyperkalemia; K80.20 Calculus of gallbladder without cholecystitis without obstruction; K44.9 Diaphragmatic hernia without obstruction or gangrene; R63.4 Abnormal weight loss; R16.2 Hepatomegaly with splenomegaly, not elsewhere classified; J98.09 Other diseases of bronchus, not elsewhere classified; G89.29 Other chronic pain; R31.9 Hematuria, unspecified; T36.3X5A Adverse effect of macrolides, initial encounter; F41.0 Panic disorder [episodic paroxysmal anxiety]; Y92.239 Unspecified place in hospital as the place of occurrence of the external cause; Y95 Nosocomial condition; Z16.21 Resistance to vancomycin; Z66 Do not resuscitate; Z68.26 Body mass index [BMI] 26.0-26.9, adult; Z86.19 Personal history of other infectious and parasitic diseases; Z87.891 Personal history of nicotine dependence; Z99.81 Dependence on supplemental oxygen
CPT/HCPCS: 31500; 31624; 32555; 36430; 36556; 36600; 49082; 49083; 71010; 71020; 71250; 76705; 76775; 76937; 80048; 80053; 80069; 80074; 80202; 80307; 81001; 82042; 82140; 82150; 82272; 82550; 82552; 82570; 82805; 82945; 82948; 83010; 83605; 83615; 83690; 83735; 83880; 83986; 84100; 84132; 84145; 84157; 84300; 84315; 84702; 85007; 85014; 85018; 85025; 85027; 85060; 85384; 85610; 85730; 86022; 86038; 86140; 86355; 86357; 86359; 86360; 86430; 86631; 86632; 86713; 86738; 86850; 86900; 86901; 86920; 86927; 87015; 87040; 87070; 87077; 87086; 87102; 87116; 87149; 87186; 87205; 87206; 87449; 87493; 87535; 87641; 89050; 89051; 90935; 93005; 93306; 94002; 94003; 94150; 94640; 94664; 96374; 96375; C1729; C9113; J0282; J0330; J0456; J0692; J0696; J0878; J1170; J1205; J1580; J1644; J1815; J1940; J2060; J2248; J2250; J2270; J2370; J2405; J2597; J2920; J2930; J3010; J3370; J3430; J7030; J7040; J7050; J7060; J7512; P9016; P9017; P9035; P9047; Q4081